=== PATIENT | male | born 1960 | race African-American/Black ===

== ENCOUNTER 2021-03-15 00:26 | Inpatient (IN) | payer MEDICARE, SELFPAY ==
[2021-03-15] VITALS (21 sets, daily range): BP systolic 129–147; BP diastolic 67–76; PULSE 69–98; RESP 14–28; TEMP 36.3–37.2; O2SAT 95–99; BMI 26.3; BMI 25.9
--- NOTE | 2021-03-15 00:31 | EKG12_ITS ---
Test Reason : SOB Blood Pressure : / mmHG Vent. Rate : 094 BPM Atrial Rate : 094 BPM P-R Int : 190 ms QRS Dur : 142 ms QT Int : 402 ms P-R-T Axes : 055 -51 054 degrees QTc Int : 502 ms Normal sinus rhythm Right bundle branch block Left anterior fascicular block Bifascicular block Possible Left ventricular hypertrophy Abnormal ECG Confirmed by RANDA MARTÍNEZ, HEATHER ([id number]), city editor HEATHER CALVILLO ([id number]) on 03/16/2021 10:40:50 AM Referred By: MARICRUZ Confirmed By:HEATHER TOLENTINO MD
--- NOTE | 2021-03-15 01:00 | RAD_ITS ---
STUDY: X-RAY CHEST REASON FOR EXAM: Male, 61 years old. Dyspnea on exertion TECHNIQUE: 2 views COMPARISON: None. FINDINGS: Please see the impression. RAD/Chest PA and Lateral IMPRESSION: Small right-sided pleural effusion. Also, fluid along the right lung minor fissure. Right basilar patchy opacities, likely atelectasis. Aspiration or pneumonia not excluded. Clear left lung. Unremarkable cardiac silhouette. No pneumothorax. Multilevel thoracic spondylosis. Electronically Signed: Javy Mckinney MD at 1:39 EDT Tel , Service support ,
--- NOTE | 2021-03-15 01:18 | EX.ED.DYSGE1 ---
HPI History of Present Illness Chief Complaint: Shortness of Breath Informant: patient Onset/Context/Timing Onset: Weeks Context: Gradual Onset Timing: Continuous Quality: Shortness of breath Location: Respiratory Current Severity: Mild Maximum Severity: Severe Worsened by: Activity and exertion Relieved by: Nothing Associated Symptoms Associated Symptoms: Fatigue, edema of lower extremities, history of iron deficiency anemia Narrative Narrative: Patient is a 61-year-old male who does not appear well. He appears dyspneic. He appears pale. He complains of shortness of breath. [place] cough. He does report a 20 pound weight loss over the last 2 years which is unintentional. He has not seen a doctor in several years. Does have swelling of his legs. Swelling improves after night's sleep. The left leg is always slightly larger than the right. He denies black or maroon-colored stool. He denies hematuria. He denies history of congestive heart failure. He denies orthopnea or PND. He does report dyspnea on exertion. Less activity to bring on the exertion recently. Prior similar symptoms: Yes Recent Illness/Hospitalization: No PFSH PFSH Allergy/AdvReac Type Severity Reaction Status Date / Time No Known Allergies Allergy Verified 02/23/17 11:54 Social History (Updated 03/15/21 @ 01:[address] Randal Merino MD) household members: none Smoking Status: Current some day smoker tobacco type: cigarettes alcohol intake: current alcohol intake frequency: other substance use type: does not use ROS ROS ED Constitutional Constitutional ED: Reports weight loss; Denies chills, fever(s), subjective or sweats Eyes Eyes: Denies blurry vision, change in vision or diplopia ENT ENT ED: Denies ear pain, rhinorrhea or sore throat Cardiovascular Cardiovascular: Denies chest pain, orthopnea, palpitations or paroxysmal nocturnal dyspnea Respiratory/Chest Respiratory/Chest: Reports dyspnea and dyspnea on exertion; Denies cough, orthopnea, paroxysmal nocturnal dyspnea or sputum Gastrointestinal Gastrointestinal: Denies abdominal pain, diarrhea, melena, nausea or vomiting Genitourinary Genitourinary ED: Denies dysuria, hematuria or urinary frequency Musculoskeletal Musculoskeletal: Denies arthralgias, back pain, myalgias or neck pain Integumentary Denies rash Neurologic Neurologic: Reports weakness; Denies headache(s) or paresthesias Endocrine Endocrinology: Denies polydipsia, polyphagia or polyuria Allergic/Immunologic Allergic/Immunologic ED: Denies urticaria EXAM Physical Exam Const Vital Signs: 03/15/21 00:27 03/15/21 00:30 03/15/21 00:36 Temperature 98.7 F Temperature Source Temporal Pulse Rate 98 69 Respiratory Rate 17 18 Respiratory Effort Normal Non-Labored Respiratory Depth Normal Blood Pressure 147/74 H 147/74 H Blood Pressure Mean 98 98 Pulse Ox 98 98 Oxygen Delivery Method Room Air Room Air Room Air Positive well nourished and well developed General Appearance ED: well developed HEENT HEENT Narrative: Head is atraumatic normocephalic. Ears normal. Nares patent. Posterior pharynx without erythema or exudate. Eyes PERRL and EOMs intact bilaterally General Eye ED: Yes pale conjunctiva; Negative for scleral icterus Neck no lymphadenopathy, supple and no JVD Resp normal respiratory effort and clear to auscultation bilaterally Cardio regular rate, regular rhythm, S1 normal heart sound, S2 normal heart sound and no murmurs GI normal to inspection, nondistended, normoactive bowel sounds, non-tender and non-distended Palpation: soft Back/Spine no CVA tenderness Cervical Spine: Negative for cervical spine tenderness Thoracic Spine / Upper Back: Negative for thoracic spinal tenderness or paraspinal muscle tenderness Extremity normal to inspection General Extremety ED: Yes edema; Negative for tenderness General Extremity: edema Neuro oriented x3 and CN's II-XII intact bilaterally Sensorium / Orientation: alert Motor Exam: strength 5/5 throughout Psych mental status grossly normal Skin no rashes or lesions noted and no wounds MDM MDM MDM Narrative Medical decision making narrative: Clinically patient is anemic with hemoglobin greater than 6 but less than 10. This may be due to his blood disorder that he does not know the name of. Also with history of iron deficiency anemia and not taking his iron he may have iron deficiency anemia. Appropriate blood work was obtained to assess H&H since anemia is a cause of dyspnea. EKG to rule out acute cardiac ischemia. Chest x-ray to rule out pulmonary etiology. Tirelessly julianna who is on-call for [place] [facility] was paged. She was informed the patient. She will notify rubbish collector of consult. Lab Data Attestation: I reviewed the patient's lab results. Labs: Laboratory Results - last 24 hr 03/15/21 03/15/21 03/15/21 00:45 00:45 00:45 WBC Cancelled Corrected WBC Cancelled RBC Cancelled Hgb Cancelled Hct Cancelled MCV Cancelled MCH Cancelled MCHC Cancelled RDW Std Deviation Cancelled RDW Coeff of Alisa Cancelled Plt Count Cancelled MPV Cancelled Immature Gran % (Auto) Cancelled Neut % (Auto) Cancelled Lymph % (Auto) Cancelled [place] % (Auto) Cancelled Eos % (Auto) Cancelled Baso % (Auto) Cancelled Absolute Neuts (auto) Cancelled Absolute Lymphs (auto) Cancelled Total Counted Cancelled Neutrophils % (Manual) Cancelled Band Neutrophils % Cancelled Lymphocytes % (Manual) Cancelled Monocytes % (Manual) Cancelled Eosinophils % (Manual) Cancelled Basophils % (Manual) Cancelled Metamyelocytes % Cancelled Myelocytes % Cancelled Promyelocytes % Cancelled Blast Cells % Cancelled Plasma Cell % (Manual) Cancelled Other Cells % Cancelled Nucleated RBC % Cancelled Nucleated RBCs/100 WBC Cancelled Differential Comment Cancelled Diff Path Review Cancelled Hypersegmented Neuts Cancelled Atypical Lymphocytes Cancelled Reactive Lymphocytes Cancelled Smudge Cells Cancelled Toxic Granulation Cancelled Toxic Vacuolation Cancelled Dohle Bodies Cancelled Porfirio Rods Cancelled Platelet Estimate Cancelled Plt Morphology Comment Cancelled RBC Morphology Cancelled Polychromasia Cancelled Hypochromasia Cancelled Poikilocytosis Cancelled Basophilic Stippling Cancelled Anisocytosis Cancelled Microcytosis Cancelled Macrocytosis Cancelled Spherocytes Cancelled Sickle Cells Cancelled Target Cells Cancelled Tear Drop Cells Cancelled Ovalocytes Cancelled Stomatocytes Cancelled [place] Bodies Cancelled Kevin Cells Cancelled Bite Cells Cancelled Crenated Cell Cancelled Acanthocytes (Spur) Cancelled Rouleaux Cancelled Schistocytes Cancelled Sodium Cancelled Potassium Cancelled Chloride Cancelled Carbon Dioxide Cancelled Anion Gap Cancelled BUN Cancelled Creatinine Cancelled Estim Creat Clear Calc Cancelled Est GFR (MDRD) Af Amer Cancelled Est GFR (MDRD) Non-Af Cancelled BUN/Creatinine Ratio Cancelled Glucose Cancelled Calcium Cancelled Total Bilirubin Cancelled AST Cancelled ALT Cancelled Alkaline Phosphatase Cancelled Total Protein Cancelled Albumin Cancelled Globulin Cancelled Albumin/Globulin Ratio Cancelled Blood Type Cancelled Antibody Screen Cancelled Crossmatch 03/15/21 03/15/21 03/15/21 01:25 01:25 01:25 WBC 225.2 H* Corrected WBC RBC 1.32 L Hgb 3.6 L* Hct 17.4 L MCV 131.8 H MCH 27.3 MCHC 20.7 L RDW Std Deviation 105.1 H RDW Coeff of Alisa 23.5 H Plt Count 162 MPV 8.8 Immature Gran % (Auto) 0.200 Neut % (Auto) 2.7 L Lymph % (Auto) 91.3 H [place] % (Auto) 5.6 Eos % (Auto) 0.1 Baso % (Auto) 0.1 Absolute Neuts (auto) 6.3 Absolute Lymphs (auto) 205.55 H Total Counted Neutrophils % (Manual) Band Neutrophils % Lymphocytes % (Manual) Monocytes % (Manual) Eosinophils % (Manual) Basophils % (Manual) Metamyelocytes % Myelocytes % Promyelocytes % Blast Cells % Plasma Cell % (Manual) Other Cells % Nucleated RBC % 0.8 Nucleated RBCs/100 WBC Differential Comment SCANNED Diff Path Review May foll Hypersegmented Neuts Atypical Lymphocytes Reactive Lymphocytes Smudge Cells Toxic Granulation Toxic Vacuolation Dohle Bodies Porfirio Rods Platelet Estimate ADEQUATE Plt Morphology Comment RBC Morphology Polychromasia RARE Hypochromasia 1+ Poikilocytosis Basophilic Stippling Anisocytosis 2+ Microcytosis RARE Macrocytosis 2+ Spherocytes Sickle Cells Target Cells Tear Drop Cells Ovalocytes Stomatocytes [place] Bodies Vanderbilt Cells Bite Cells Crenated Cell Acanthocytes (Spur) Rouleaux Schistocytes Sodium 143 Potassium 3.9 Chloride 110 H Carbon Dioxide 24.0 Anion Gap 9 BUN 10 Creatinine 0.75 Estim Creat Clear Calc 123.77 Est GFR (MDRD) Af Amer 135 Est GFR (MDRD) Non-Af 112 BUN/Creatinine Ratio 13.4 Glucose 97 Calcium 8.4 L Total Bilirubin 2.00 H AST 15 ALT 10 L Alkaline Phosphatase 99 Total Protein 6.0 L Albumin 2.6 L Globulin 3.4 Albumin/Globulin Ratio 0.8 L Blood Type Cancelled Antibody Screen Cancelled Crossmatch 03/15/21 Unknown WBC Corrected WBC RBC Hgb Hct MCV MCH MCHC RDW Std Deviation RDW Coeff of Alisa Plt Count MPV Immature Gran % (Auto) Neut % (Auto) Lymph % (Auto) [place] % (Auto) Eos % (Auto) Baso % (Auto) Absolute Neuts (auto) Absolute Lymphs (auto) Total Counted Neutrophils % (Manual) Band Neutrophils % Lymphocytes % (Manual) Monocytes % (Manual) Eosinophils % (Manual) Basophils % (Manual) Metamyelocytes % Myelocytes % Promyelocytes % Blast Cells % Plasma Cell % (Manual) Other Cells % Nucleated RBC % Nucleated RBCs/100 WBC Differential Comment Diff Path Review Hypersegmented Neuts Atypical Lymphocytes Reactive Lymphocytes Smudge Cells Toxic Granulation Toxic Vacuolation Dohle Bodies Porfirio Rods Platelet Estimate Plt Morphology Comment RBC Morphology Polychromasia Hypochromasia Poikilocytosis Basophilic Stippling Anisocytosis Microcytosis Macrocytosis Spherocytes Sickle Cells Target Cells Tear Drop Cells Ovalocytes Stomatocytes [place] Bodies Vanderbilt Cells Bite Cells Crenated Cell Acanthocytes (Spur) Rouleaux Schistocytes Sodium Potassium Chloride Carbon Dioxide Anion Gap BUN Creatinine Estim Creat Clear Calc Est GFR (MDRD) Af Amer Est GFR (MDRD) Non-Af BUN/Creatinine Ratio Glucose Calcium Total Bilirubin AST ALT Alkaline Phosphatase Total Protein Albumin Globulin Albumin/Globulin Ratio Blood Type Antibody Screen Crossmatch See Detail Radiography Diagnostic Testing: Radiology Impression Chest X-Ray 03/15/21 01:00 IMPRESSION: Small right-sided pleural effusion. Also, fluid along the right lung minor fissure. Right basilar patchy opacities, likely atelectasis. Aspiration or pneumonia not excluded. Clear left lung. Unremarkable cardiac silhouette. No pneumothorax. Multilevel thoracic spondylosis. Electronically Signed: Javy Mckinney MD at 1:39 EDT Tel , Service support , Discharge Plan Dx/Rx/DC Orders Clinical Impression: Signs and symptoms of anemia, Chronic lymphocytic leukemia, Anemia, macrocytic Disposition Disposition: Acute Care Hospital [facility]
[2021-03-15 01:42] LABS: Absolute Lymphocyte Count 205.55 X10^3/uL (0.83-4.51); Absolute Neutrophil Count 6.3 X10^3/uL (2.0-7.7); Basophil# 0.18 X10^3/uL; Basophil% 0.1 % (0-1); Eosinophil# 0.13 X10^3/uL; Eosinophils% 0.1 % (0-5); Hematocrit 17.4 % (40-54); Lymphocyte # 205.55 X10^3/ul (0.83-4.51); Lymphocyte % 91.3 % (19-41); Mean Corp Hgb Conc 20.7 g/dL (32-36); Mean Corpuscular Hgb 27.3 pg (27.0-32.0); Mean Corpuscular Volume 131.8 fL (80-94); Mean Platelet Vol. 8.8 fl (6.2-12.0); Monocyte# 12.53 X10^3/uL; Monocyte% 5.6 % (0-10); NRBC Flagged by Analyzer 0.8 % (0-5); Neutrophil # 6.32 X10^3/uL (2.7-7.7); Neutrophil % 2.7 % (47-70); POSITIVE COUNT YES; POSITIVE DIFFERENTIAL YES; POSITIVE MORPHOLOGY YES; Platelet Count 162 K/mm3 (150-450); RBC Distribution Width CV 23.5 % (11.6-14.6); RBC Distribution Width SD 105.1 fl (35.1-43.9); Red Blood Count 1.32 M/mm3 (4.6-6.2)
[2021-03-15 01:44] LABS: Differential Indicated SCAN CRITERIA MET; Hemoglobin 3.6 g/dL (13.0-16.5); White Blood Count 225.2 K/mm3 (4.4-11.0)
[2021-03-15 02:00] LABS: ALB/GLOB Ratio 0.8 RATIO (0.9-2.4); AST(SGOT) 15 U/L (15-37); Alanine Aminotransfer ALT/SGPT 10 U/L (16-61); Albumin, Serum 2.6 g/dL (3.2-5.0); Alkaline Phosphatase 99 U/L (45-117); Anion Gap 9 (5-15); BUN 10 mg/dL (7-18); BUN/Creat Ratio 13.4 RATIO (10-20); Calcium,Total 8.4 mg/dL (8.5-10.1); Chloride 110 mmol/L (98-107); Creatinine, Serum 0.75 mg/dL (0.70-1.30); EST Glomerular Filtration Rate 112 mL/min (>60); Est Glom Filt Rate - Afr Amer 135 mL/min (>60); Estimated Creatinine Clearance 123.77 ml/min; Globulin 3.4 g/dL (2.2-4.2); Glucose 97 mg/dL (74-106); Potassium 3.9 mmol/L (3.5-5.1); Sodium Level 143 mmol/L (136-145)
[2021-03-15 02:09] LABS: Anisocytosis 2+; Differential Comment SCANNED; Macrocytosis 2+; Microcytosis RARE; Platelet Estimate ADEQUATE (ADEQ); Polychromasia RARE
[2021-03-15 02:10] LABS: Hypochromasia 1+
--- NOTE | 2021-03-15 02:55 | HP.PCM.HOS_ITS ---
HPI - General General Date of Admission: 03/15/21 HPI Narrative MARYCRUZ VARGAS, is a 61 M with a significant history of CLL who presents to the emergency department with 2-week history of progressively worsening shortness of breath. Associated with his symptoms is bilateral leg swelling. He attributes his bilateral leg swelling to his CLL. [facility] [place] Medical History Chronic lymphocytic leukemia Allergy/AdvReac Type Severity Reaction Status Date / Time No Known Allergies Allergy Verified 02/23/17 11:54 Family History (Updated 03/15/21 @ 03:[address] Tra Garcia MD) Other Diabetes Hypertension Surgical History H/O foot surgery History of tonsillectomy Social History household members: none Smoking Status: Current some day smoker tobacco type: cigarettes alcohol intake: current alcohol intake frequency: other substance use type: does not use ROS ROS Narrative Constitutional: Denies anorexia and change in weight Eyes: Denies blurry vision, change in eye color, change in vision, discharge from eye(s), double vision, erythema, eye pain, loss of vision or other HEENT: Denies abnormal hearing, dysphagia, ear pain, epistaxis, headache(s), hearing loss, nasal congestion, nasal discharge, post nasal drip, sinus pressure, sore throat or other Cardiovascular: Denies chest pain or palpitations. Respiratory/Chest: Reports shortness of breath. Denies cough. Gastrointestinal: Denies abdominal pain, coffee ground emesis, constipation, diarrhea, dyspepsia, hematemesis, hematochezia, loose stools, melena, nausea, vomiting or other Genitourinary: Denies burning urination, difficulty urinating, dysuria, hematuria, nocturia, urinary frequency, urinary hesitancy, urinary incontinence, urinary urgency or other Musculoskeletal: Reports leg swelling. Denies arthralgias, back pain, joint pain, joint stiffness, myalgias, neck pain or other Neurologic: Denies abnormal gait, abnormal speech, confusion, disequilibrium, dizziness, focal weakness, headache(s), numbness, paresthesias, seizure-like activity, seizures, syncope, tingling, tremor(s) or other Psychiatric: Denies anxiety, depression, homicidal ideation, suicidal ideation or other Endocrinology: Denies change in body appearance, cold intolerance, excessive sweating, heat intolerance, polydipsia, polyuria or other Hematologic/Lymphatic: Reports anemia. Denies easy bleeding, easy bruising, or other Integumentary: Denies rashes Allergic/Immunologic: Denies rhinitis, hives, eczema, asthma or other Vital Signs Vital Signs Vital Signs: 03/15/21 00:27 03/15/21 00:30 03/15/21 00:36 Temperature 98.7 F Temperature Source Temporal Pulse Rate 98 69 Respiratory Rate 17 18 Respiratory Effort Normal Non-Labored Respiratory Depth Normal Blood Pressure 147/74 H 147/74 H Blood Pressure Mean 98 98 Pulse Ox 98 98 Oxygen Delivery Method Room Air Room Air Room Air Weight Weight: 98.2 kg Body Mass Index (BMI) 26.3 Physical Exam Narrative Physical exam: General: Well-nourished, well-developed. Head: Normocephalic, atraumatic, no tenderness Eyes: PERRLA, EOMI ENT, no trauma, moist mucous membranes, no rhinorrhea Neck: Nontender, full range of motion, no spinal tenderness, deformities, step- off CVS: Regular rate and rhythm. S1-S2 present. No murmur, gallop or rub. Respiratory : clear to auscultation bilaterally, chest wall nontender, no wheezing Abdomen: Soft, nontender, nondistended, normal bowel sounds, no masses : Deferred Back: Nontender, no CVA tenderness, no midline spinal tenderness, deformities, step-offs Extremities: Bilateral leg edema. Nontender full range of motion, no trauma Skin: Normal color, no trauma, abrasions Neuro: Alert, oriented, cranial nerves II through XII grossly intact. Psychiatry: Normal mood. Normal affect. Not depressed. Not anxious. Results Lab / Micro Data Result Diagrams: 03/15/21 01:25 03/15/21 01:25 Labs: Laboratory Results - last 24 hr 03/15/21 00:45: WBC Cancelled, Corrected WBC Cancelled, RBC Cancelled, Hgb Cancelled, Hct Cancelled, MCV Cancelled, MCH Cancelled, MCHC Cancelled, RDW Std Deviation Cancelled, RDW Coeff of Alisa Cancelled, Plt Count Cancelled, MPV Cancelled, Immature Gran % (Auto) Cancelled, Neut % (Auto) Cancelled, Lymph % (Auto) Cancelled, [place] % (Auto) Cancelled, Eos % (Auto) Cancelled, Baso % (Auto) Cancelled, Absolute Neuts (auto) Cancelled, Absolute Lymphs (auto) Cancelled, Total Counted Cancelled, Neutrophils % (Manual) Cancelled, Band Neutrophils % Cancelled, Lymphocytes % (Manual) Cancelled, Monocytes % (Manual) Cancelled, Eo sinophils % (Manual) Cancelled, Basophils % (Manual) Cancelled, Metamyelocytes % Cancelled, Myelocytes % Cancelled, Promyelocytes % Cancelled, Blast Cells % Cancelled, Plasma Cell % (Manual) Cancelled, Other Cells % Cancelled, Nucleated RBC % Cancelled, Nucleated RBCs/100 WBC Cancelled, Differential Comment Cancelled, Diff Path Review Cancelled, Hypersegmented Neuts Cancelled, Atypical Lymphocytes Cancelled, Reactive Lymphocytes Cancelled, Smudge Cells Cancelled, Toxic Granulation Cancelled, Toxic Vacuolation Cancelled, Dohle Bodies Cancelled, Porfirio Rods Cancelled, Platelet Estimate Cancelled, Plt Morphology Comment Cancelled, RBC Morphology Cancelled, Polychromasia Cancelled, Hypochromasia Cancelled, Poikilocytosis Cancelled, Basophilic Stippling Cancelled, Anisocytosis Cancelled, Microcytosis Cancelled, Macrocytosis Cancelled, Spherocytes Cancelled, Sickle Cells Cancelled, Target Cells Cancelled, Tear Drop Cells Cancelled, Ovalocytes Cancelled, Stomatocytes Cancelled, Lynn-Petrey Bodies Cancelled, [place] Cells Cancelled, Bite Cells Cancelled, Crenated Cell Cancelled, Acanthocytes (Spur) Cancelled, Rouleaux Cancelled, Schistocytes Cancelled 03/15/21 00:45: Sodium Cancelled, Potassium Cancelled, Chloride Cancelled, Carbon Dioxide Cancelled, Anion Gap Cancelled, BUN Cancelled, Creatinine Cancelled, Estim Creat Clear Calc Cancelled, Est GFR (MDRD) Af Amer Cancelled, Est GFR (MDRD) Non-Af Cancelled, BUN/Creatinine Ratio Cancelled, Glucose Cancelled, Calcium Cancelled, Total Bilirubin Cancelled, AST Cancelled, ALT Cancelled, Alkaline Phosphatase Cancelled, Total Protein Cancelled, Albumin Cancelled, Globulin Cancelled, Albumin/Globulin Ratio Cancelled 03/15/21 00:45: Blood Type Cancelled, Antibody Screen Cancelled 03/15/21 01:25: WBC 225.2 H*, RBC 1.32 L, Hgb 3.6 L*, Hct 17.4 L, MCV 131.8 H, MCH 27.3, MCHC 20.7 L, RDW Std Deviation 105.1 H, RDW Coeff of Alisa 23.5 H, Plt Count 162, MPV 8.8, Immature Gran % (Auto) 0.200, Neut % (Auto) 2.7 L, Lymph % (Auto) 91.3 H, [place] % (Auto) 5.6, Eos % (Auto) 0.1, Baso % (Auto) 0.1, Absolute Neuts (auto) 6.3, Absolute Lymphs (auto) 205.55 H, Nucleated RBC % 0.8, Differential Comment SCANNED, Diff Path Review May foll, Platelet Estimate ADEQUATE, Polychromasia RARE, Hypochromasia 1+, Anisocytosis 2+, Microcytosis RARE, Macrocytosis 2+ 03/15/21 01:25: Sodium 143, Potassium 3.9, Chloride 110 H, Carbon Dioxide 24.0, Anion Gap 9, BUN 10, Creatinine 0.75, Estim Creat Clear Calc 123.77, Est GFR (MDRD) Af Amer 135, Est GFR (MDRD) Non-Af 112, BUN/Creatinine Ratio 13.4, Glucose 97, Calcium 8.4 L, Total Bilirubin 2.00 H, AST 15, ALT 10 L, Alkaline Phosphatase 99, Total Protein 6.0 L, Albumin 2.6 L, Globulin 3.4, Albumin/Globulin Ratio 0.8 L 03/15/21 01:25: Blood Type Cancelled, Antibody Screen Cancelled 03/15/21 : Crossmatch See Detail Radiology Impression Chest X-Ray 03/15/21 01:00 IMPRESSION: Small right-sided pleural effusion. Also, fluid along the right lung minor fissure. Right basilar patchy opacities, likely atelectasis. Aspiration or pneumonia not excluded. Clear left lung. Unremarkable cardiac silhouette. No pneumothorax. Multilevel thoracic spondylosis. Electronically Signed: Javy Mckinney MD at 1:39 EDT Tel , Service support , Assessment & Plan Assessment/Plan (1) Signs and symptoms of anemia: (2) Chronic lymphocytic leukemia: PLAN: Symptomatic anemia Review emergent department labs showed hemoglobin of 3.6 and white count of 225.2. 4 units of blood was ordered emergency department. After 4 units of blood has been transfused repeat CBC. Emergency department doctor discussed the case with hematology. Inpatient hematology consult placed. Chest x-ray interpreted by radiologist and myself showed opacities/atelectasis; no fever or chills. Unlikely pneumonia. Trend CBC Bilateral leg swelling Jobst stocking continued DVT prophylaxis: SCD ordered Charges/Coding Visit Charges Inpatient E&M: 03768 Init Hosp L3
[2021-03-15 03:04] LABS: Vitamin B12 456 pg/mL (211-911)
--- NOTE | 2021-03-15 08:21 | NURSING ---
Pt placed on 2L via NC due to feeling SOB. Hgb 3.6.
--- NOTE | 2021-03-15 09:10 | PN.HOSP_ITS ---
Objective Data Objective Data Vital Signs: Vital Signs Temp Pulse Resp BP Pulse Ox 98.4 F 88 24 H 135/75 H 99 03/15/21 09:03 03/15/21 09:03 03/15/21 09:03 03/15/21 09:03 03/15/21 09:03 Oxygen Flow Rate (L/min) 2 Oxygen Delivery Method Room Air Weight: 96.6 kg Body Mass Index (BMI) 25.9 Lab / Micro Data Result Diagrams: 03/15/21 01:25 03/15/21 01:25 Labs: Laboratory Results - last 24 hr 03/15/21 00:45: WBC Cancelled, Corrected WBC Cancelled, RBC Cancelled, Hgb Cancelled, Hct Cancelled, MCV Cancelled, MCH Cancelled, MCHC Cancelled, RDW Std Deviation Cancelled, RDW Coeff of Alisa Cancelled, Plt Count Cancelled, MPV Cancelled, Immature Gran % (Auto) Cancelled, Neut % (Auto) Cancelled, Lymph % (Auto) Cancelled, [place] % (Auto) Cancelled, Eos % (Auto) Cancelled, Baso % (Auto) Cancelled, Absolute Neuts (auto) Cancelled, Absolute Lymphs (auto) Cancelled, Total Counted Cancelled, Neutrophils % (Manual) Cancelled, Band Neutrophils % Cancelled, Lymphocytes % (Manual) Cancelled, Monocytes % (Manual) Cancelled, Eosinophils % (Manual) Cancelled, Basophils % (Manual) Cancelled, Metamyelocytes % Cancelled, Myelocytes % Cancelled, Promyelocytes % Cancelled, Blast Cells % Cancelled, Plasma Cell % (Manual) Cancelled, Other Cells % Cancelled, Nucleated RBC % Cancelled, Nucleated RBCs/100 WBC Cancelled, Differential Comment Cancelled, Diff Path Review Cancelled, Hypersegmented Neuts Cancelled, Atypical Lymphocytes Cancelled, Reactive Lymphocytes Cancelled, Smudge Cells Cancelled, Toxic Granulation Cancelled, Toxic Vacuolation Cancelled, Dohle Bodies Cancelled, Porfirio Rods Cancelled, Platelet Estimate Cancelled, Plt Morphology Comment Cancelled, RBC Morphology Cancelled, Polychromasia Cancelled, Hypochromasia Cancelled, Poikilocytosis Cancelled, Basophilic Stippling Cancelled, Anisocytosis Cancelled, Microcytosis Cancelled, Macrocytosis Cancelled, Spherocytes Cancelled, Sickle Cells Cancelled, Target Cells Cancelled, Tear Drop Cells Cancelled, Ovalocytes Cancelled, Stomatocytes Cancelled, [place] Bodies Cancelled, Kevin Cells Cancelled, Bite Cells C ancelled, Crenated Cell Cancelled, Acanthocytes (Spur) Cancelled, Rouleaux Cancelled, Schistocytes Cancelled 03/15/21 00:45: Sodium Cancelled, Potassium Cancelled, Chloride Cancelled, Carbon Dioxide Cancelled, Anion Gap Cancelled, BUN Cancelled, Creatinine Cancelled, Estim Creat Clear Calc Cancelled, Est GFR (MDRD) Af Amer Cancelled, Est GFR (MDRD) Non-Af Cancelled, BUN/Creatinine Ratio Cancelled, Glucose Cancelled, Calcium Cancelled, Total Bilirubin Cancelled, AST Cancelled, ALT Cancelled, Alkaline Phosphatase Cancelled, Total Protein Cancelled, Albumin Cancelled, Globulin Cancelled, Albumin/Globulin Ratio Cancelled 03/15/21 00:45: Blood Type Cancelled, Antibody Screen Cancelled 03/15/21 01:25: WBC 225.2 H*, RBC 1.32 L, Hgb 3.6 L*, Hct 17.4 L, MCV 131.8 H, MCH 27.3, MCHC 20.7 L, RDW Std Deviation 105.1 H, RDW Coeff of Alisa 23.5 H, Plt Count 162, MPV 8.8, Immature Gran % (Auto) 0.200, Neut % (Auto) 2.7 L, Lymph % (Auto) 91.3 H, [place] % (Auto) 5.6, Eos % (Auto) 0.1, Baso % (Auto) 0.1, Absolute Neuts (auto) 6.3, Absolute Lymphs (auto) 205.55 H, Nucleated RBC % 0.8, Differential Comment SCANNED, Diff Path Review May foll, Platelet Estimate ADEQUATE, Polychromasia RARE, Hypochromasia 1+, Anisocytosis 2+, Microcytosis RARE, Macrocytosis 2+ 03/15/21 01:25: Sodium 143, Potassium 3.9, Chloride 110 H, Carbon Dioxide 24.0, Anion Gap 9, BUN 10, Creatinine 0.75, Estim Creat Clear Calc 123.77, Est GFR (MDRD) Af Amer 135, Est GFR (MDRD) Non-Af 112, BUN/Creatinine Ratio 13.4, Glucose 97, Calcium 8.4 L, Total Bilirubin 2.00 H, AST 15, ALT 10 L, Alkaline P hosphatase 99, Total Protein 6.0 L, Albumin 2.6 L, Globulin 3.4, Albumin/Globulin Ratio 0.8 L 03/15/21 01:25: Blood Type Cancelled, Antibody Screen Cancelled 03/15/21 01:37: Folate 5.90 03/15/21 01:45: Direct Antiglob Test POSITIVE H 03/15/21 02:40: Vitamin B12 456 03/15/21 : Crossmatch See Detail 03/15/21 : Blood Type A POSITIVE, Antibody Screen POSITIVE H 03/15/21 : Blood Type A POSITIVE Micro: Microbiology 03/15/21 02:55 Nasal Secretion SARS-CoV-2 Antigen (Rapid) - Final Radiography Diagnostic Testing: Radiology Impression Chest X-Ray 03/15/21 01:00 IMPRESSION: Small right-sided pleural effusion. Also, fluid along the right lung minor fissure. Right basilar patchy opacities, likely atelectasis. Aspiration or pneumonia not excluded. Clear left lung. Unremarkable cardiac silhouette. No pneumothorax. Multilevel thoracic spondylosis. Electronically Signed: Javy Mckinney MD at 1:39 EDT Tel , Service support ,
[2021-03-15 09:39] LABS: Iron 54 ug/dL (65-175); Iron Binding Capacity,Total 485 ug/dL (250-450); PERCENT IRON SATURATION 11.1 % (15.0-55.0)
--- NOTE | 2021-03-15 10:45 | CASEMGMT ---
RN KAREL Face to Face with patient for initial transition planning/care coordination assessment. RN CM introduced self and role at [facility]. Patient lying in bed, alert and oriented. Patient willing to participate in assessment and is able to answer all questions appropriately. Care providers, pharmacy, and demographics verified. Patient wishes to discharge home, denies need for home health at this time. Patient states he has no further needs or concerns at this time. CM to follow for discharge planning needs that may arise. PCP: Jaswant Specialists: none Preferred Pharmacy: [facility] Insurance: [facility] Prescription Benefit: yes Living Will/HPOA: none LNOK: Brother Living Arrangements: Patient lives alone in a 2 story home. Patient states he is independent at home and able to ambulate stairs. Transportation: self/brother DME/HHC: Patient denies current DME or previous HHC. Disposition Plan: Patient to discharge home with family support and follow-up plans in place. Caroline MURDOCK, RN, CM
[2021-03-15 11:11] LABS: Bilirubin, Direct 0.42 mg/dL (0.00-0.30); Ferritin 34 ng/mL (26-388); LDH 285 U/L (87-241)
[2021-03-15 11:11] LABS: Platelet Count 185 K/mm3 (150-450); RET-HE 28.9 pg (30-35); Reticulocyte Count 28.43 % (0.5-1.5)
[2021-03-15 13:12] LABS: Pathologist Review Reviewed
--- NOTE | 2021-03-15 13:25 | CON.PCM.ON_ITS ---
Assessment & Plan Assessment/Plan (1) Anemia, macrocytic: Status: Acute Code(s): D53.9 - Nutritional anemia, unspecified Plan: As evidenced by hemoglobin 3.6 on admission. direct raad IgG 2+ positive. I personally reviewed peripheral slides with pathologist, who estimate 5-10% spherocytes. 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 Additional labs ordered including d bili, haptoglobin, retic count and iron studies. Patient is stable. Given he was able to engage in interview without conversation dyspnea or tachycardia and he is not endorsing CP at this time, it is very likely he has been this severely anemia for an extended period of time. Advise 2 units PRBCs transfused slowly over 4 hours today, transfuse 2 units PRBCs slowly over 4 hours tomorrow, repeat CBC/LDH daily. Target Hgb 7 g/dl. Begin prednisone 100 mg tomorrow with folic acid 1 gm and prophylactic PPI daily. I explained to the patient he will need to be on high dose steroids for duration of 2-3 weeks. (2) Lymphocytosis: Status: Acute Code(s): D72.820 - Lymphocytosis (symptomatic) Plan: WBC 225.2, abs lymph 205.55 suggestive of CLL. ANC and platelets preserved, however presents with edema of BLE, splenomegaly and subjectively reports unintentional weight loss which would be indications for the treatment of CLL rather than observance. Obtain hepatitis panel to prepare for possible treatment in the future with rituximab. Orders entered for flow cytometry, FISH on peripheral blood and LDH. Advise supporting him through anemia crisis and obtain further staging and CLL management in the ambulatory setting. (3) Bilateral lower extremity edema: Status: Acute Code(s): R60.0 - Localized edema Plan: High risk for DVT. Orders entered for venous doppler bilat lower extremities. Case reviewed and discussed with Dr. Mccabe who is in agreement with the aforementioned plan. Will continue to follow. HPI Consult Data Date of Service:: 03/15/21 PCP / Referring Provider: Dr. Marlon Michaud MD Attending: Dr. Snow Brandt MD Chief Complaint Chief Complaint: Anemia, Lymphocytosis History of Present Illness History of Present Illness: Mr. 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 Found to have WBC count of 225.2, abs lymp 205.55 suggestive of CLL, Hgb 3.6 but preserved platelets and ANC. He was subsequently admitted for management of acute severe anemia. Upon entering the room, patient is sitting upright in bed. States he became dyspnea with exertion only 4 days ago, fatigue and SOB progressively worsened. Does not endorse any CP, palpations at this time. Early satiety and BLE are chronic concerns but increased within the last 6 months. Experiencing abd bloating and fullness. Endorses 20 lb unintentional weight loss in the last 18 months. No night sweats, dysphagia, enlarged lymph nodes. Reports he was told he has a problem with my red blood cells and white blood cells by a provider at [facility] [place], describes hospital admissions at [facility] in 2017 and 2018 where he received PRBC transfusions and later required Venofer in the out patient setting. Since, he has not followed with hem/onc. Continues to smoke 3-4 cigarettes per day. Describes ETOH use as rare. Advanced Directives Power of Blasting Entry Specialist: No [facility] Will[facility] History (Updated 03/15/21 @ 14:58 by Sada Jones NP, [employer]) Bilateral lower extremity edema Chronic lymphocytic leukemia Lymphocytosis Home Medications NK 03/15/21 [History Last Taken Unknown] Allergy/AdvReac Type Severity Reaction Status Date / Time No Known Allergies Allergy Verified 02/23/17 11:54 Family History (Updated 03/15/21 @ 03:[address] Tra Garcia MD) Other Diabetes Hypertension Surgical History H/O foot surgery History of tonsillectomy Social History (Updated 03/15/21 @ 13:58 by Sada Jones NP, [employer]) household members: none Smoking Status: Light Smoker (<10/day) alcohol intake: current alcohol intake frequency: holidays/special occasions only substance use type: does not use ROS Constitutional Constitutional: Reports fatigue and weight loss; Denies chills, fever(s) or night sweats ENT HEENT: Denies dysphagia Cardiovascular Cardiovascular: Reports clubbing, dyspnea at rest and edema; Denies chest pain, diaphoresis, irregular heart rhythm, palpitations or tachypnea Respiratory/Chest Respiratory/Chest: Denies cough, hemoptysis, pain on inspiration or wheezing Gastrointestinal Gastrointestinal: Reports bloating and early satiety; Denies constipation, diarrhea, dyspepsia, dysphagia, hematochezia, melena, nausea or vomiting Genitourinary Genitourinary: Denies flank pain or hematuria Musculoskeletal Musculoskeletal: Denies abnormal gait, back pain or extremity pain Integumentary Integumentary: Denies jaundice or unusual bruising Neurologic Neurologic: Denies confusion, dizziness, focal weakness, headache(s), numbness or tingling Hematologic/Lymphatic Hematologic/Lymphatic: Denies lymphadenopathy Physical Exam Const alert, oriented x3 and no apparent distress General Appearance: cooperative and comfortable HEENT normocephalic Head and Scalp: atraumatic Eyes conjunctivae normal and no scleral icterus Lymph Lymphatic: no lymphadenopathy noted Lymphatic Narrative: Difficult to discern inguinal nodes and as lying supine increased dyspnea Resp normal respiratory effort and clear to auscultation bilaterally Effort and Inspection: able to speak in complete sentences Cardio regular rate, regular rhythm, S1 normal heart sound, S2 normal heart sound and no murmurs GI GI Narrative: normoactive bowel sounds Palpation: firm and splenomegaly Difficult to discern splenic sizse as lying supine increased dyspnea Extremity General Extremity: edema bilateral lower extremity Details: moderate Skin no rashes or lesions noted General Skin Exam: Negative for petechiae Neuro CN's II-XII intact bilaterally and moves all extremities Psych cooperative, affect normal and speech normal Vital Signs Temperature 99.0 F 03/15/21 12:24 Temperature Source Oral 03/15/21 12:24 Pulse Rate 87 03/15/21 12:24 Respiratory Rate 28 H 03/15/21 12:24 Respiratory Effort Non-Labored 03/15/21 06:17 Respiratory Depth Normal 03/15/21 06:17 Respiratory Pattern Normal 03/15/21 06:17 Blood Pressure 132/70 H 03/15/21 12:24 Blood Pressure Mean 90 03/15/21 12:24 Blood Pressure Source Monitor 03/15/21 12:24 Blood Pressure Position Semi-Fowlers 03/15/21 12:24 Blood Pressure Location Right Arm 03/15/21 12:24 Pulse Ox 96 03/15/21 12:24 Oxygen Delivery Method Room Air 03/15/21 12:24 Oxygen Flow Rate (L/min) 2 03/15/21 08:19 Laboratory Results - last 24 hr 03/15/21 00:45: WBC Cancelled, Corrected WBC Cancelled, RBC Cancelled, Hgb Cancelled, Hct Cancelled, MCV Cancelled, MCH Cancelled, MCHC Cancelled, RDW Std Deviation Cancelled, RDW Coeff of Alisa Cancelled, Plt Count Cancelled, MPV Cancelled, Immature Gran % (Auto) Cancelled, Neut % (Auto) Cancelled, Lymph % (Auto) Cancelled, [place] % (Auto) Cancelled, Eos % (Auto) Cancelled, Baso % (Auto) Cancelled, Absolute Neuts (auto) Cancelled, Absolute Lymphs (auto) Cancelled, Total Counted Cancelled, Neutrophils % (Manual) Cancelled, Band Neutrophils % Cancelled, Lymphocytes % (Manual) Cancelled, Monocytes % (Manual) Cancelled, Eosinophils % (Manual) Cancelled, Basophils % (Manual) Cancelled, Metamyelocytes % Cancelled, Myelocytes % Cancelled, Promyelocytes % Cancelled, Blast Cells % Cancelled, Plasma Cell % (Manual) Cancelled, Other Cells % Cancelled, Nucleated RBC % Cancelled, Nucleated RBCs/100 WBC Cancelled, Differential Comment Cancelled, Diff Path Review Cancelled, Hypersegmented Neuts Cancelled, Atypical Lymphocytes Cancelled, Reactive Lymphocytes Cancelled, Smudge Cells Cancelled, Toxic Granulation Cancelled, Toxic Vacuolation Cancelled, Dohle Bodies Cancelled, Porfirio Rods Cancelled, Platelet Estimate Cancelled, Plt Morphology Comment Cancelled, RBC Morphology Cancelled, Polychromasia Cancelled, Hypochromasia Cancelled, Poikilocytosis Cancelled, Basophilic Stippling Cancelled, Anisocytosis Cancelled, Microcytosis Cancelled, Macrocytosis Cancelled, Spherocytes Cancelled, Sickle Cells Cancelled, Target Cells Cancelled, Tear Drop Cells Cancelled, Ovalocytes Cancelled, Stomatocytes Cancelled, [place] Bodies Cancelled, Kevin Cells Cancelled, Bite Cells Cancelled, Crenated Cell Cancelled, Acanthocytes (Spur) Cancelled, Rouleaux Cancelled, Schistocytes Cancelled 03/15/21 00:45: Sodium Cancelled, Potassium Cancelled, Chloride Cancelled, Carbon Dioxide Cancelled, Anion Gap Cancelled, BUN Cancelled, Creatinine Cancelled, Estim Creat Clear Calc Cancelled, Est GFR (MDRD) Af Amer Cancelled, Est GFR (MDRD) Non-Af Cancelled, BUN/Creatinine Ratio Cancelled, Glucose Cancelled, Calcium Cancelled, Total Bilirubin Cancelled, AST Cancelled, ALT Cancelled, Alkaline Phosphatase Cancelled, Total Protein Cancelled, Albumin Cancelled, Globulin Cancelled, Albumin/Globulin Ratio Cancelled 03/15/21 00:45: Blood Type Cancelled, Antibody Screen Cancelled 03/15/21 01:25: WBC 225.2 H*, RBC 1.32 L, Hgb 3.6 L*, Hct 17.4 L, MCV 131.8 H, MCH 27.3, MCHC 20.7 L, RDW Std Deviation 105.1 H, RDW Coeff of Alisa 23.5 H, Plt Count 162, MPV 8.8, Immature Gran % (Auto) 0.200, Neut % (Auto) 2.7 L, Lymph % (Auto) 91.3 H, [place] % (Auto) 5.6, Eos % (Auto) 0.1, Baso % (Auto) 0.1, Absolute Neuts (auto) 6.3, Absolute Lymphs (auto) 205.55 H, Nucleated RBC % 0.8, Differential Comment SCANNED, Diff Path Review Reviewed, Platelet Estimate ADEQUATE, Polychromasia RARE, Hypochromasia 1+, Anisocytosis 2+, Microcytosis RARE, Macrocytosis 2+ 03/15/21 01:25: Sodium 143, Potassium 3.9, Chloride 110 H, Carbon Dioxide 24.0, Anion Gap 9, BUN 10, Creatinine 0.75, Estim Creat Clear Calc 123.77, Est GFR (MDRD) Af Amer 135, Est GFR (MDRD) Non-Af 112, BUN/Creatinine Ratio 13.4, Glucose 97, Calcium 8.4 L, Total Bilirubin 2.00 H, AST 15, ALT 10 L, Alkaline Phosphatase 99, Total Protein 6.0 L, Albumin 2.6 L, Globulin 3.4, Albumin/Globulin Ratio 0.8 L 03/15/21 01:25: Blood Type Cancelled, Antibody Screen Cancelled 03/15/21 01:25: Retic Count 28.43 H, Immature Retic Fraction 43.90 H, Retic Hgb Equivalent 28.9 L 03/15/21 01:37: Folate 5.90 03/15/21 01:37: Iron 54 L, TIBC 485 H, Iron Saturation 11.1 L 03/15/21 01:37: Ferritin 34, Direct Bilirubin 0.42 H, Lactate Dehydrogenase 285 H 03/15/21 01:45: Direct Antiglob Test POS w/COMPLEMENT H 03/15/21 02:40: Vitamin B12 456 03/15/21 : Crossmatch See Detail 03/15/21 : Blood Type A POSITIVE, Antibody Screen POSITIVE H 03/15/21 : Blood Type A POSITIVE Microbiology 03/15/21 09:25 Nasal Secretion SARS-CoV-2 Antigen (Rapid) - Final 03/15/21 02:55 Nasal Secretion SARS-CoV-2 Antigen (Rapid) - Final Diagnostic Data Chest X-Ray 03/15/21 01:00 IMPRESSION: Small right-sided pleural effusion. Also, fluid along the right lung minor fissure. Right basilar patchy opacities, likely atelectasis. Aspiration or pneumonia not excluded. Clear left lung. Unremarkable cardiac silhouette. No pneumothorax. Multilevel thoracic spondylosis. Electronically Signed: Javy Mckineny MD at 1:39 EDT Tel , Service support ,
--- NOTE | 2021-03-15 13:36 | PN.HOSP_ITS ---
Documented by User: Tracy West NP, [employer] 03/15/21 13:53 Subjective Subjective Patient seen and examined. Reports shortness of breath. Denies chest pain, lightheadedness. Denies other symptoms or complaints. Patient is a poor historian regarding his history of anemia. Objective Data Objective Data Vital Signs: Vital Signs Temp Pulse Resp BP Pulse Ox 99.0 F 87 28 H 132/70 H 96 03/15/21 12:24 03/15/21 12:24 03/15/21 12:24 03/15/21 12:24 03/15/21 12:24 Oxygen Flow Rate (L/min) 2 Oxygen Delivery Method Room Air Weight: 212 lb 15.465 oz Body Mass Index (BMI) 25.9 Intake & Output: Intake and Output for Last 24 Hours 03/13/21 03/14/21 03/15/21 23:59 23:59 23:59 Intake Total 350 / 350 Balance 350 / 350 Lab / Micro Data Result Diagrams: 03/15/21 18:19 03/15/21 01:25 Labs: Laboratory Results - last 24 hr 03/15/21 00:45: WBC Cancelled, Corrected WBC Cancelled, RBC Cancelled, Hgb Cancelled, Hct Cancelled, MCV Cancelled, MCH Cancelled, MCHC Cancelled, RDW Std Deviation Cancelled, RDW Coeff of Alisa Cancelled, Plt Count Cancelled, MPV Cancelled, Immature Gran % (Auto) Cancelled, Neut % (Auto) Cancelled, Lymph % (Auto) Cancelled, [place] % (Auto) Cancelled, Eos % (Auto) Cancelled, Baso % (Auto) Cancelled, Absolute Neuts (auto) Cancelled, Absolute Lymphs (auto) Cancelled, Total Counted Cancelled, Neutrophils % (Manual) Cancelled, Band Neutrophils % Cancelled, Lymphocytes % (Manual) Cancelled, Monocytes % (Manual) Cancelled, Eosinophils % (Manual) Cancelled, Basophils % (Manual) Cancelled, Metamyelocytes % Cancelled, Myelocytes % Cancelled, Promyelocytes % Cancelled, Blast Cells % Cancelled, Plasma Cell % (Manual) Cancelled, Other Cells % Cancelled, Nucleated RBC % Cancelled, Nucleated RBCs/100 WBC Cancelled, Differential Comment Cancelled, Diff Path Review Cancelled, Hypersegmented Neuts Cancelled, Atypical Lymphocytes Cancelled, Reactive Lymphocytes Cancelled, Smudge Cells Cancelled, Toxic Granulation Cancelled, Toxic Vacuolation Cancelled, Dohle Bodies Cancelled, Porfirio Rods Cancelled, Platelet Estimate Cancelled, Plt Morphology Comment Cancelled, RBC Morphology Cancelled, Polychromasia Cancelled, Hypochromasia Cancelled, Poikilocytosis Cancelled, Basophilic Stippling Cancelled, Anisocytosis Cancelled, Microcytosis Cancelled, Macrocytosis Cancelled, Spherocytes Cancelled, Sickle Cells Cancelled, Target Cells Cancelled, Tear Drop Cells Cancelled, Ovalocytes Cancelled, Stomatocytes Cancelled, [place] Bodies Cancelled, Kevin Cells Cancelled, Bite Cells Ca ncelled, Crenated Cell Cancelled, Acanthocytes (Spur) Cancelled, Rouleaux Cancelled, Schistocytes Cancelled 03/15/21 00:45: Sodium Cancelled, Potassium Cancelled, Chloride Cancelled, Carbon Dioxide Cancelled, Anion Gap Cancelled, BUN Cancelled, Creatinine Cancelled, Estim Creat Clear Calc Cancelled, Est GFR (MDRD) Af Amer Cancelled, Est GFR (MDRD) Non-Af Cancelled, BUN/Creatinine Ratio Cancelled, Glucose Cancelled, Calcium Cancelled, Total Bilirubin Cancelled, AST Cancelled, ALT Cancelled, Alkaline Phosphatase Cancelled, Total Protein Cancelled, Albumin Cancelled, Globulin Cancelled, Albumin/Globulin Ratio Cancelled 03/15/21 00:45: Blood Type Cancelled, Antibody Screen Cancelled 03/15/21 01:25: WBC 225.2 H*, RBC 1.32 L, Hgb 3.6 L*, Hct 17.4 L, MCV 131.8 H, MCH 27.3, MCHC 20.7 L, RDW Std Deviation 105.1 H, RDW Coeff of Alisa 23.5 H, Plt C ount 162, MPV 8.8, Immature Gran % (Auto) 0.200, Neut % (Auto) 2.7 L, Lymph % (Auto) 91.3 H, [place] % (Auto) 5.6, Eos % (Auto) 0.1, Baso % (Auto) 0.1, Absolute Neuts (auto) 6.3, Absolute Lymphs (auto) 205.55 H, Nucleated RBC % 0.8, D ifferential Comment SCANNED, Diff Path Review Reviewed, Platelet Estimate ADEQUATE, Polychromasia RARE, Hypochromasia 1+, Anisocytosis 2+, Microcytosis RARE, Macrocytosis 2+ 03/15/21 01:25: Sodium 143, Potassium 3.9, Chloride 110 H, Carbon Dioxide 24.0, Anion Gap 9, BUN 10, Creatinine 0.75, Estim Creat Clear Calc 123.77, Est GFR (MDRD) Af Amer 135, Est GFR (MDRD) Non-Af 112, BUN/Creatinine Ratio 13.4, Glucose 97, Calcium 8.4 L, Total Bilirubin 2.00 H, AST 15, ALT 10 L, Alkaline Ph osphatase 99, Total Protein 6.0 L, Albumin 2.6 L, Globulin 3.4, Albumin/Globulin Ratio 0.8 L 03/15/21 01:25: Blood Type Cancelled, Antibody Screen Cancelled 03/15/21 01:25: Retic Count 28.43 H, Immature Retic Fraction 43.90 H, Retic Hgb Equivalent 28.9 L 03/15/21 01:37: Folate 5.90 03/15/21 01:37: Iron 54 L, TIBC 485 H, Iron Saturation 11.1 L 03/15/21 01:37: Ferritin 34, Direct Bilirubin 0.42 H, Lactate Dehydrogenase 285 H 03/15/21 01:45: Direct Antiglob Test POS w/COMPLEMENT H 03/15/21 02:40: Vitamin B12 456 03/15/21 : Crossmatch See Detail 03/15/21 : Blood Type A POSITIVE, Antibody Screen POSITIVE H 03/15/21 : Blood Type A POSITIVE Micro: Microbiology 03/15/21 09:25 Nasal Secretion SARS-CoV-2 Antigen (Rapid) - Final 03/15/21 02:55 Nasal Secretion SARS-CoV-2 Antigen (Rapid) - Final Radiography Diagnostic Testing: Radiology Impression Chest X-Ray 03/15/21 01:00 IMPRESSION: Small right-sided pleural effusion. Also, fluid along the right lung minor fissure. Right basilar patchy opacities, likely atelectasis. Aspiration or pneumonia not excluded. Clear left lung. Unremarkable cardiac silhouette. No pneumothorax. Multilevel thoracic spondylosis. Electronically Signed: Javy Mckinney MD at 1:39 EDT Tel , Service support , Physical Exam Const alert, oriented x3 and no apparent distress Orientation / Consciousness: awake, oriented to person, oriented to place and oriented to time HEENT normocephalic and moist oral mucous membranes Eyes PERRL, EOMs intact bilaterally and conjunctivae normal Neck no lymphadenopathy Resp clear to auscultation bilaterally Effort and Inspection: tachypneic Auscultation: diminished lung sounds Cardio regular rate, regular rhythm and no murmurs Peripheral Pulses: pulses 2+ throughout GI normal to inspection, nondistended, normoactive bowel sounds, non-tender and non-distended Extremity normal to inspection General Extremity: edema bilateral lower extremity Details: moderate Skin no rashes or lesions noted Lesions: no lesions Rashes: no rashes Trauma: no lacerations or abrasions Neuro CN's II-XII intact bilaterally, no focal motor deficits, no sensory deficits noted and deep tendon reflexes 2+ bilaterally Psych mental status grossly normal and affect normal Assessment & Plan Assessment/Plan (1) Anemia, macrocytic: PLAN: 1. Acute severe symptomatic anemia-reviewed clinisync records, no documented prior history of CLL. Hematology consult placed. Possible autoimmune hemolytic anemia. 4 units PRBC ordered however due to antibodies/type and screen, blood unable to be obtained quickly. Attempted transfer to tertiary facilities at multiple facilities including [facility], [facility], without any acceptance at this time. Smaller tertiary facilities not excepting transfers from outside facilities. Serial H&H, give blood as soon as available. IV PPI. Initiated on prednisone. LDH 285. Bilirubin elevated. Elevated retic count. Mildly iron deficient however not significant. will consider excepting patient once blood has been administered as they feel his current hemoglobin/status is not stable for transfer. 2. Severe leukocytosis-WBC to 25. Possible CLL although as stated above, no known prior history. Hematology/oncology consult as noted above. 3. Bilateral lower extremity edema-IV Lasix x1. Bunny wraps bilateral lower extremities. DVT prophylaxis-SCDs This patient was seen by ISAIAH Paulino under the supervision of Dr. Brandt. Documented by User: Dr. Snow Brandt MD 03/15/21 20:28 Objective Data Lab / Micro Data Result Diagrams: 03/15/21 18:19 03/15/21 01:25 Charges/Coding Addendum Addendum: This patient was seen in conjunction with Tracy West. I have independently interviewed and examined the patient and reviewed pertinent historical, laboratory, and other data. I have reviewed her note and concur with her documentation Patient was seen and examined. He is a poor historian. He denied any history of CLL. Informed by blood bank that they are unable to transfuse him. Blood will have to be arranged from [facility] -expected time of arrival is 12 hours. Patient complains of shortness of breath with minimal exertion. He feels diaphoretic. He denied any chest pain or dizziness. Called several transfer alliance?[facility], [facility], [facility] -all refused to accept the patient Discussed in depth with hematology on-call -recommended current management including transfer to ICU for closer monitoring Physical Exam: Gen: Looks in some discomfort, very pale, not jaundiced CVS:HS I +II, regular, no murmurs RESP: Diminished at lung bases GI: BS present and normal, soft, nontender, no palpable organs EXT: Bilateral leg edema +4 ASSESSMENT: 1. Acute severe symptomatic anemia 2. Acute autoimmune hemolytic anemia 3. Elevated WBC count likely secondary to underlying CLL Plan: IV Solu-Medrol 125 mg x 1 Continue on oral prednisone 100 mg p.o. daily Transfused 2 units of blood today Repeat 2 units of blood tomorrow Check FOBT, iron stores Time spent coordinating with various transfer lines to tertiary centers, discussing with subspecialists, nursing, reviewing patient's record: 2 and half hours Visit Charges Inpatient E&M: 48609 Subs Hosp L3 Procedures Hospitalists Procedures: 75888 Prolonged Physician INPT
--- NOTE | 2021-03-15 13:54 | ECHOD_ITS ---
Reason For Study: BLE EDEMA Procedure This was a 2D Doppler, Color Flow transthoracic echocardiogram. The exam was of adequate technical quality. Exam performed portable in patient room. Left Ventricle Borderline dilated left ventricle. Apical false tendon noted. Left ventricular systolic function is normal. The estimated ejection fraction is 60 %. Diastolic function is indeterminate. No regional wall motion abnormalities noted. Right Ventricle Normal RV size. Normal systolic function. Atria The left atrium is mildly enlarged. Normal right atrium. No doppler evidence for ASD. Mitral Valve There is no mitral annular calcification. Normal mitral valve. Trivial mitral valve insufficiency. Tricuspid Valve Normal tricuspid valve. Trivial tricuspid valve insufficiency. Unable to estimate RV systolic pressure due to insufficient tricuspid regurgitant envelope. Aortic Valve Trisinus/trileaflet aortic valve. Mild diffuse aortic valve thickening. Mild focal aortic valve calcification. Pulmonic Valve The pulmonic valve is not well visualized. Great Vessels Normal sized aortic root. Pericardium/Pleural Trivial pericardial effusion. There are no echocardiographic indications of cardiac tamponade. MMode/2D Measurements & Calculations LVIDd: 5.7 cm IVSd: 1.1 cm Ao root diam: 3.1 cm LVIDs: 3.9 cm LVPWd: 1.2 cm RVDd: 3.9 cm FS: 31.3 % LAV(MOD-bp): 99.4 ml LA A4 area: 28.0 cm2 LA dimension(2D): 4.6 cm LAV(MOD-bp) Indexed: 43.8 ml/m2 LAV(MOD-sp2): 101.6 ml LAV(MOD-sp4): 92.1 ml RA A4 area: 22.0 cm2 Doppler Measurements & Calculations MV E max tej: 56.5 cm/sec Lat Peak E' Tej: 11.2 cm/sec Med Peak E' Tej: 11.7 cm/sec MV A max tej: 73.0 cm/sec E/E' lat: 5.0 E/E' med: 4.8 MV E/A: 0.77 Ao V2 max: 185.3 cm/sec LV V1 max: 143.7 cm/sec PA V2 max: 135.9 cm/sec Ao max P.7 mmHg LV V1 max P.3 mmHg Ao V2 mean: 105.7 cm/sec LV V1 mean P.5 mmHg Ao mean P.3 mmHg LV V1 mean: 87.6 cm/sec Ao V2 VTI: 28.8 cm LV V1 VTI: 24.4 cm ECHO/Echo Complete Interpretation Summary Borderline dilated left ventricle. Left ventricular systolic function is normal. The estimated ejection fraction is 60 %. Apical false tendon noted. The left atrium is mildly enlarged. Trivial mitral valve insufficiency. Trivial tricuspid valve insufficiency. Mild diffuse aortic valve thickening. Mild focal aortic valve calcification. Trivial pericardial effusion. There are no echocardiographic indications of cardiac tamponade. Unable to estimate RV systolic pressure due to insufficient tricuspid regurgita nt envelope. Diastolic function is indeterminate. Ordering Physician: Tracy West Referring Physician: Marlon Michaud Performed By: Cyndie Albert RDCS, RVT
[2021-03-15 14:34] LABS: Hematocrit 18.5 % (40-54); POSITIVE COUNT YES; POSITIVE MORPHOLOGY YES
--- NOTE | 2021-03-15 15:11 | VDLE_ITS ---
Reason For Study: SWELLING RIGHT LEFT GSV is normal. GSV is normal. FV is compressible, spontaneous, phasic, FV is compressible, spontaneous, phasic, competent and demonstrates normal competent and demonstrates normal augmentation. augmentation. POP V is compressible, spontaneous, phasic, POP V is compressible, spontaneous, phasic, competent and demonstrates normal competent and demonstrates normal augmentation. augmentation. T/P Trunk is compressible. T/P Trunk is compressible. PTV is compressible. PTV is compressible. RT PerV is compressible. LT PerV is compressible. There is a nonvascularized, hypoechoic structure noted in the Pop space extending to the proximal calf, measuring 2.23 x 2.2 cm. Procedure Exam performed portable in patient room. Bilateral CFV and SFJ not visualized. A preliminary report was called and/or faxed to [facility]. VL/Venous Duplex US - Frandy Extrem Interpretation Summary Deep veins of the lower extremities are bilaterally patent and compressible seg mentally. There is no evidence of deep vein thrombosis on either side. Valvular competence appears in tact within the proximal deep venous systems bilaterally. The great saphenous veins appear bila terally patent and compressible segmentally. The common femoral vein and sapheno-femoral junction were not visualized on either side. A non-vascular, hypoechoic structure is noted in the right popl iteal space and proximal calf, measuring 2.23 cm x 2.2 cm. This probably represents a popliteal cyst. Clinical correlation is advised. Ordering Physician: Sada Jones Referring Physician: LADONNA LOU Performed By: Birgit Tena, DEBORAHCS, RVT
--- NOTE | 2021-03-15 15:20 | EKG12_ITS ---
Test Reason : Blood Pressure : / mmHG Vent. Rate : 087 BPM Atrial Rate : 087 BPM P-R Int : 196 ms QRS Dur : 152 ms QT Int : 430 ms P-R-T Axes : 062 -44 034 degrees QTc Int : 517 ms Normal sinus rhythm Left axis deviation Right bundle branch block Abnormal ECG When compared with ECG of 26-FEB-2009 03:04, Right bundle branch block is now Present Confirmed by YANELY MARTÍNEZ, MADHU ([id number]), industrial editor HEATHER CALVILLO ([id number]) on 03/17/2021 2:12:42 PM Referred By: ANNALISE Confirmed By:MADHU [place] MD
--- NOTE | 2021-03-15 18:53 | EX.PCM.CONCC ---
Assessment & Plan Assessment/Plan (1) Chronic lymphocytic leukemia: (2) Bilateral lower extremity edema: (3) Hepatitis C: QUALIFIERS: Viral hepatitis chronicity: unspecified (4) Anemia, macrocytic: (5) Malnutrition: PLAN: RECOMMENDATIONS: 1. Agree with oncology recommendations 2. Transfusion when available 3. No need to transfer to the intensive care unit from my perspective 4. May need to monitor for tumor lysis syndrome IMPRESSIONS: 1. Macrocytic anemia secondary to active CLL Patient with significant elevation in lymphocytes. Oncology appears that this is appropriate to treat with Rituxan. Patient, despite extremely low hemoglobin, is tolerating this well and is normotensive. Orthostatic symptoms would be expected. Patient can have blood transfusions when they become available. Patient does have multiple antibodies. Patient could receive fluid boluses if necessary. Likely no reason to transfer to the intensive care unit at this time. We will continue to observe on the floor. Anticipate patient could have the majority of his work-up as an outpatient. Patient does have a bronze appearance, so evaluation for hemochromatosis would be recommended as suggested by oncology. 2. Active tobacco abuse/hepatitis C/poor primary care/poor insight Complicates care, management, recovery and prognosis. Patient could have a work-up as an outpatient to evaluate for COPD given long smoking history. Patient does have an unintentional weight loss, and should qualify for a low-dose CT scan. This would be completed as an outpatient. Anticipate an element of dyspnea on exertion is secondary to anemia alone. However, this would exacerbate any underlying obstructive lung disease. HPI Consult Data Date of Consult: 03/15/21 HPI Narrative HPI Narrative: MARYCRUZ VARGAS is a 61 M with past medical history listed below, who presents to [facility] 03/15/2021 secondary to generalized fatigue, dyspnea on exertion and a 20 pound unintentional weight loss. Patient reportedly had not seen a doctor in several years and reports that the [facility] told him there is nothing to do. Patient states that he has not had any black or maroon-colored stools. Patient does take p.o. iron at baseline, so my stools are always dark. Patient denies any history of hematuria, CHF orthopnea. Patient does have difficulty going from lying to standing, but feels this is improved if he takes this time. In the ER, patient was afebrile and normotensive. Patient was saturating well on room air. Laboratory work-up showed a white blood cell count of 225.2, hemoglobin of 3.6 and platelet count of 162. Patient was noted to have 91% lymphocytes. Chemistries were relatively unremarkable except for an elevated bilirubin of 2. Chest x-ray showed a small right pleural effusion with no pneumothorax. Since being admitted to the hospital, patient feels relatively unchanged. Patient has not been able to get blood transfusion secondary to multiple antibodies. Patient has remained hemodynamically stable. There was some question about whether the patient needed to be transferred to the intensive care unit, so pulmonary consult was obtained. Patient does have a long smoking history, but denies any history of being diagnosed with COPD. Patient denies any alcohol or drug use. Patient has used inhalers in the past associated with bronchitis. Patient does report that he has had some increased lower extremity swelling recently. Patient states that he has not followed up with any physicians because an oncologist at [facility] told me there was nothing he could do. Review of systems otherwise negative from a constitutional, HEENT, respiratory, cardiovascular, GI, genitourinary, musculoskeletal, skin, neurologic, psychiatric and hematologic system unless stated above. [facility] Medical History Bilateral lower extremity edema Chronic lymphocytic leukemia Lymphocytosis Home Medications NK 03/15/21 [History Last Taken Unknown] Allergy/AdvReac Type Severity Reaction Status Date / Time No Known Allergies Allergy Verified 02/23/17 11:54 Family History Other Diabetes Hypertension Surgical History H/O foot surgery History of tonsillectomy Social History household members: none Smoking Status: Light Smoker (<10/day) alcohol intake: current alcohol intake frequency: holidays/special occasions only substance use type: does not use ROS ROS Narrative See HPI Physical Exam Const alert, oriented x3 and no apparent distress Orientation / Consciousness: awake, oriented to person, oriented to place and oriented to time HEENT normocephalic and moist oral mucous membranes Eyes PERRL, EOMs intact bilaterally and conjunctivae normal Neck no lymphadenopathy Resp no use of accessory muscles and clear to auscultation bilaterally Effort and Inspection: symmetric chest movement Auscultation: diminished lung sounds; Negative for rales, rhonchi or wheezes Cardio regular rate, regular rhythm and no murmurs Peripheral Pulses: pulses 2+ throughout GI normal to inspection, nondistended, normoactive bowel sounds, non-tender and non-distended Extremity normal to inspection General Extremity: edema bilateral lower extremity (3+) Skin Skin Narrative: Darker complexion Lesions: no lesions Rashes: no rashes Trauma: no lacerations or abrasions Neuro CN's II-XII intact bilaterally, no focal motor deficits, no sensory deficits noted and deep tendon reflexes 2+ bilaterally Psych mental status grossly normal and affect normal Lab / Micro Data Result Diagrams: 03/15/21 18:19 03/15/21 01:25 Labs: Laboratory Results - last 24 hr 03/15/21 00:45: WBC Cancelled, Corrected WBC Cancelled, RBC Cancelled, Hgb Cancelled, Hct Cancelled, MCV Cancelled, MCH Cancelled, MCHC Cancelled, RDW Std Deviation Cancelled, RDW Coeff of Alisa Cancelled, Plt Count Cancelled, MPV Cancelled, Immature Gran % (Auto) Cancelled, Neut % (Auto) Cancelled, Lymph % (Auto) Cancelled, [place] % (Auto) Cancelled, Eos % (Auto) Cancelled, Baso % (Auto) Cancelled, Absolute Neuts (auto) Cancelled, Absolute Lymphs (auto) Cancelled, Total Counted Cancelled, Neutrophils % (Manual) Cancelled, Band Neutrophils % Cancelled, Lymphocytes % (Manual) Cancelled, Monocytes % (Manual) Cancelled, Eosinophils % (Manual) Cancelled, Basophils % (Manual) Cancelled, Metamyelocytes % Cancelled, Myelocytes % Cancelled, Promyelocytes % Cancelled, Blast Cells % Cancelled, Plasma Cell % (Manual) Cancelled, Other Cells % Cancelled, Nucleated RBC % Cancelled, Nucleated RBCs/100 WBC Cancelled, Differential Comment Cancelled, Diff Path Review Cancelled, Hypersegmented Neuts Cancelled, Atypical Lymphocytes Cancelled, Reactive Lymphocytes Cancelled, Smudge Cells Cancelled, Toxic Granulation Cancelled, Toxic Vacuolation Cancelled, Dohle Bodies Cancelled, Porfirio Rods Cancelled, Platelet Estimate Cancelled, Plt Morphology Comment Cancelled, RBC Morphology Cancelled, Polychromasia Cancelled, Hypochromasia Cancelled, Poikilocytosis Cancelled, Basophilic Stippling Cancelled, Anisocytosis Cancelled, Microcytosis Cancelled, Macrocytosis Cancelled, Spherocytes Cancelled, Sickle Cells Cancelled, Target Cells Cancelled, Tear Drop Cells Cancelled, Ovalocytes Cancelled, Stomatocytes Cancelled, [place] Bodies Cancelled, Kevin Cells Cancelled, Bite Cells Cancelled, Crenated Cell Cancelled, Acanthocytes (Spur) Cancelled, Rouleaux Cancelled, Schistocytes Cancelled 03/15/21 00:45: Sodium Cancelled, Potassium Cancelled, Chloride Cancelled, Carbon Dioxide Cancelled, Anion Gap Cancelled, BUN Cancelled, Creatinine Cancelled, Estim Creat Clear Calc Cancelled, Est GFR (MDRD) Af Amer Cancelled, Est GFR (MDRD) Non-Af Cancelled, BUN/Creatinine Ratio Cancelled, Glucose Cancelled, Calcium Cancelled, Total Bilirubin Cancelled, AST Cancelled, ALT Cancelled, Alkaline Phosphatase Cancelled, Total Protein Cancelled, Albumin Cancelled, Globulin Cancelled, Albumin/Globulin Ratio Cancelled 03/15/21 00:45: Blood Type Cancelled, Antibody Screen Cancelled 03/15/21 01:25: WBC 225.2 H*, RBC 1.32 L, Hgb 3.6 L*, Hct 17.4 L, MCV 131.8 H, MCH 27.3, MCHC 20.7 L, RDW Std Deviation 105.1 H, RDW Coeff of Alisa 23.5 H, Plt Count 162, MPV 8.8, Immature Gran % (Auto) 0.200, Neut % (Auto) 2.7 L, Lymph % (Auto) 91.3 H, [place] % (Auto) 5.6, Eos % (Auto) 0.1, Baso % (Auto) 0.1, Absolute Neuts (auto) 6.3, Absolute Lymphs (auto) 205.55 H, Nucleated RBC % 0.8, Differential Comment SCANNED, Diff Path Review Reviewed, Platelet Estimate ADEQUATE, Polychromasia RARE, Hypochromasia 1+, Anisocytosis 2+, Microcytosis RARE, Macrocytosis 2+ 03/15/21 01:25: Sodium 143, Potassium 3.9, Chloride 110 H, Carbon Dioxide 24.0, Anion Gap 9, BUN 10, Creatinine 0.75, Estim Creat Clear Calc 123.77, Est GFR (MDRD) Af Amer 135, Est GFR (MDRD) Non-Af 112, BUN/Creatinine Ratio 13.4, Glucose 97, Calcium 8.4 L, Total Bilirubin 2.00 H, AST 15, ALT 10 L, Alkaline Phosphatase 99, Total Protein 6.0 L, Albumin 2.6 L, Globulin 3.4, Albumin/Globulin Ratio 0.8 L 03/15/21 01:25: Blood Type Cancelled, Antibody Screen Cancelled 03/15/21 01:25: Retic Count 28.43 H, Immature Retic Fraction 43.90 H, Retic Hgb Equivalent 28.9 L 03/15/21 01:37: Folate 5.90 03/15/21 01:37: Iron 54 L, TIBC 485 H, Iron Saturation 11.1 L 03/15/21 01:37: Ferritin 34, Direct Bilirubin 0.42 H, Lactate Dehydrogenase 285 H 03/15/21 01:45: Direct Antiglob Test POS w/COMPLEMENT H 03/15/21 02:40: Vitamin B12 456 03/15/21 14:12: Hgb 3.7 L*, Hct 18.5 L 03/15/21 18:19: Hgb 8.5 L, Hct 36.2 L 03/15/21 : Crossmatch See Detail 03/15/21 : Blood Type A POSITIVE, Antibody Screen POSITIVE H, Antibody Identification WARM AUTOANTIBODY 03/15/21 : Blood Type A POSITIVE Micro: Microbiology 03/15/21 09:25 Nasal Secretion SARS-CoV-2 Antigen (Rapid) - Final 03/15/21 02:55 Nasal Secretion SARS-CoV-2 Antigen (Rapid) - Final Radiology Impression Chest X-Ray 03/15/21 01:00 IMPRESSION: Small right-sided pleural effusion. Also, fluid along the right lung minor fissure. Right basilar patchy opacities, likely atelectasis. Aspiration or pneumonia not excluded. Clear left lung. Unremarkable cardiac silhouette. No pneumothorax. Multilevel thoracic spondylosis. Electronically Signed: Javy Mckinney MD at 1:39 EDT Tel , Service support , Echocardiogram 03/15/21 13:54 Interpretation Summary Borderline dilated left ventricle. Left ventricular systolic function is normal. The estimated ejection fraction is 60 %. Apical false tendon noted. The left atrium is mildly enlarged. Trivial mitral valve insufficiency. Trivial tricuspid valve insufficiency. Mild diffuse aortic valve thickening. Mild focal aortic valve calcification. Trivial pericardial effusion. There are no echocardiographic indications of cardiac tamponade. Unable to estimate RV systolic pressure due to insufficient tricuspid regurgitant envelope. Diastolic function is indeterminate. Ordering Physician: Tracy West Referring Physician: Marlon Michaud Performed By: Cyndie Albert RDCS, RVT Charges/Coding Visit Charges Inpatient E&M: 89397 Init Hosp L2
[2021-03-15 18:54] LABS: Hemoglobin 3.8 g/dL (13.0-16.5)
--- NOTE | 2021-03-15 18:58 | NURSING ---
pandemic documentation started
[2021-03-15] MEDS: DiphenhydrAMINE 50 MG/ML Syringe IV (19:56)
[2021-03-15] MEDS: 0.9% Saline Lock 10 ML Syringe IV (19:56)
[2021-03-15] MEDS: Acetaminophen 500 MG Tablet 1000 MG PO (19:56)
[2021-03-16] VITALS (28 sets, daily range): BP systolic 124–155; BP diastolic 62–85; PULSE 76–104; RESP 14–25; TEMP 36.2–37.4; O2SAT 94–98
[2021-03-16] MEDS: predniSONE 20 MG Tablet 100 MG PO (07:55)
[2021-03-16] MEDS: Furosemide 40 MG/4 ML Vial IV ×2 (07:55→17:01)
[2021-03-16] MEDS: 0.9% Saline Lock 10 ML Syringe IV ×2 (07:55→17:02)
[2021-03-16] MEDS: Folic Acid 1 MG Tablet PO (07:58)
[2021-03-16 10:35] LABS: Haptoglobin 55 mg/dL (32-363)
--- NOTE | 2021-03-16 10:35 | WOUNDNOTE ---
Consulted on patient d/t history of hidradenitis. patient has not allowed nursing to remove his jeans for since admission which was 2 days ago. nursing unsure if patient has any wounds. in to attempt to assess. patient states the areas that drain the most are to the buttocks. patient wanting to wait until the blood transfusion is complete and then wants to shower. talked with BASHIR Kline to let this nurse know once patient showers and can attempt to assess buttocks. patient very private. pt denies further needs at this time.
--- NOTE | 2021-03-16 11:24 | PN.ONC_ITS ---
Subjective Subjective Upon entering the room, patient is sitting upright in bed eating his breakfast. Reports improvement of fatigue and dyspnea. He is eager to get a shower and be out of bed. Specifically denies chills, sweats, CP, palpitations, dysphagia, enlarged LN, abd pain and calf pain. BLE edema unchanged. Physical Exam Const alert, oriented x3 and no apparent distress General Appearance: cooperative and comfortable HEENT normocephalic Head and Scalp: atraumatic Eyes conjunctivae normal and no scleral icterus Lymph Lymphatic: no lymphadenopathy noted Resp normal respiratory effort and clear to auscultation bilaterally Effort and Inspection: able to speak in complete sentences Cardio regular rate, regular rhythm, S1 normal heart sound, S2 normal heart sound and no murmurs GI non-tender GI Narrative: normoactive bowel sounds Extremity General Extremity: edema bilateral lower extremity Skin General Skin Exam: Negative for petechiae Neuro CN's II-XII intact bilaterally and moves all extremities Psych cooperative, affect normal and speech normal Vital Signs Temperature 99.3 F H 03/16/21 09:55 Temperature Source Temporal 03/16/21 09:55 Pulse Rate 88 03/16/21 09:55 Respiratory Rate 23 H 03/16/21 09:55 Respiratory Effort Non-Labored 03/16/21 08:00 Respiratory Depth Normal 03/16/21 08:00 Respiratory Pattern Normal 03/16/21 08:00 Blood Pressure 138/77 H 03/16/21 09:55 Blood Pressure Mean 97 03/16/21 09:55 Blood Pressure Source Monitor 03/16/21 09:55 Blood Pressure Position Semi-Fowlers 03/16/21 09:55 Blood Pressure Location Right Arm 03/16/21 09:55 Pulse Ox 98 03/16/21 09:55 Oxygen Delivery Method Room Air 03/16/21 09:55 Oxygen Flow Rate (L/min) 2 03/15/21 08:19 Laboratory Results - last 24 hr 03/15/21 01:25: Diff Path Review Reviewed 03/15/21 02:40: Haptoglobin 55 03/15/21 14:12: Hgb 3.7 L*, Hct 18.5 L 03/15/21 18:19: Hgb 3.8 L*, Hct 19.0 L 03/15/21 : Crossmatch See Detail 03/15/21 : Antibody Identification WARM AUTOANTIBODY Microbiology 03/15/21 09:25 Nasal Secretion SARS-CoV-2 Antigen (Rapid) - Final Diagnostic Data Chest X-Ray 03/15/21 01:00 IMPRESSION: Small right-sided pleural effusion. Also, fluid along the right lung minor fissure. Right basilar patchy opacities, likely atelectasis. Aspiration or pneumonia not excluded. Clear left lung. Unremarkable cardiac silhouette. No pneumothorax. Multilevel thoracic spondylosis. Electronically Signed: Javy Mckinney MD at 1:39 EDT Tel , Service support , Echocardiogram 03/15/21 13:54 Interpretation Summary Borderline dilated left ventricle. Left ventricular systolic function is normal. The estimated ejection fraction is 60 %. Apical false tendon noted. The left atrium is mildly enlarged. Trivial mitral valve insufficiency. Trivial tricuspid valve insufficiency. Mild diffuse aortic valve thickening. Mild focal aortic valve calcification. Trivial pericardial effusion. There are no echocardiographic indications of cardiac tamponade. Unable to estimate RV systolic pressure due to insufficient tricuspid regurgitant envelope. Diastolic function is indeterminate. Ordering Physician: Tracy West Referring Physician: Ladonna Lou Performed By: Cyndie Albert, RDCS, RVT Venous Doppler Study 03/15/21 15:11 Interpretation Summary Deep veins of the lower extremities are bilaterally patent and compressible segmentally. There is no evidence of deep vein thrombosis on either side. Valvular competence appears intact within the proximal deep venous systems bilaterally. The great saphenous veins appear bilaterally patent and compressible segmentally. The common femoral vein and sapheno-femoral junction were not visualized on either side. A non-vascular, hypoechoic structure is noted in the right popliteal space and proximal calf, measuring 2.23 cm x 2.2 cm. This probably represents a popliteal cyst. Clinical correlation is advised. Ordering Physician: Sada Jones Referring Physician: LADONNA LOU Performed By: Birgit Tena, LION, RVT Assessment & Plan Assessment/Plan (1) Anemia, macrocytic: PLAN: Secondary to autoimmune hemolytic anemia, direct raad IgG 2+. 3 full units of PRBCs have been transfused, with 1 additional unit in process at the time of my encounter with the patient this morning. Overall, he has tolerated transfusions well. Await post transfusion H/H, consider type and hold to help expedite further transfusions this admission. Iron studies show he is deficient, although will not replenish as he has receive iron with transfusions. Occult blood stool not yet provided. Target Hgb 7 g/dl. Continue prednisone 100 mg with folic acid daily. Continue GI prophylaxis. Patient is aware he will need to be on high dose steroids for duration of 2-3 weeks, stressed the importance of adherence to steroid therapy upon discharge. CBC/CMP/retic count daily. (2) Lymphocytosis: PLAN: WBC and abs lymph count suggestive of CLL. Flow cytometry and FISH lymph panel are pending. LDH WNL, again ANC and platelets are preserved indicating anemia is not resulting from crowding of bone marrow. Will determine if there are indications for treatment in the out patient setting once flow/FISH are reported and severe anemia has improved. Repeat LDH daily. (3) Edema, lower extremity: PLAN: Venous dopper negative for DVT. Primary team managing diuretics. Case reviewed and discussed with Dr. Mccabe who is in agreement with the aforementioned plan. Will continue to follow.
--- NOTE | 2021-03-16 13:26 | WOUNDNOTE ---
Was asked to assess buttocks per nursing. patient has severe hidradenitis to buttocks/penny rectal area. Ileana CODING DIRECTOR in to assess with this nurse as well. patient states he has been to a specialist at [facility] numerous times for it and has had surgery twice. patient has a moderate amount of pink/vaughan malodorous drainage. bilateral buttocks very edematous and inflamed. patient not wanting this nurse to place any gauze between buttocks to absorb drainage. pt prefers to use a pad like he does at home. pad placed at this time with mesh panties.
[2021-03-16 13:40] LABS: Hemoglobin 3.7 g/dL (13.0-16.5)
--- NOTE | 2021-03-16 13:50 | PCM.PN.HOSP ---
Documented by User: Tracy West NP, EXTENSION SERVICE ADVISOR-C 03/16/21 14:01 Subjective Subjective Patient seen and examined. Feels improved symptomatically. Reports improvement in shortness of breath and fatigue. Received 4 units PRBC. Awaiting repeat CBC. Patient reports chronic significant hidradenitis in the buttock area. He states he has not followed up with us for several years and typically wears a pad during the day due to consistent drainage. Objective Data Objective Data Vital Signs: Vital Signs Temp Pulse Resp BP Pulse Ox 99.2 F H 89 22 H 148/81 H 95 03/16/21 10:55 03/16/21 11:26 03/16/21 10:55 03/16/21 10:55 03/16/21 10:55 Oxygen Flow Rate (L/min) 2 Oxygen Delivery Method Room Air Weight: 212 lb 15.465 oz Body Mass Index (BMI) 25.9 Intake & Output: Intake and Output for Last 24 Hours 03/14/21 03/15/21 03/16/21 23:59 23:59 23:59 Intake Total 860 / 1100 1790 / 1790 Output Total 125 / 125 1900 / 1900 Balance 735 / 975 -110 / -110 Lab / Micro Data Result Diagrams: 03/16/21 13:40 03/16/21 13:40 Labs: Laboratory Results - last 24 hr 03/15/21 02:40: Haptoglobin 55 03/15/21 14:12: Hgb 3.7 L*, Hct 18.5 L 03/15/21 18:19: Hgb 3.8 L*, Hct 19.0 L 03/15/21 : Crossmatch See Detail 03/15/21 : Antibody Identification WARM AUTOANTIBODY Micro: Microbiology 03/15/21 09:25 Nasal Secretion SARS-CoV-2 Antigen (Rapid) - Final 03/15/21 02:55 Nasal Secretion SARS-CoV-2 Antigen (Rapid) - Final Radiography Diagnostic Testing: Radiology Impression Echocardiogram 03/15/21 13:54 Interpretation Summary Borderline dilated left ventricle. Left ventricular systolic function is normal. The estimated ejection fraction is 60 %. Apical false tendon noted. The left atrium is mildly enlarged. Trivial mitral valve insufficiency. Trivial tricuspid valve insufficiency. Mild diffuse aortic valve thickening. Mild focal aortic valve calcification. Trivial pericardial effusion. There are no echocardiographic indications of cardiac tamponade. Unable to estimate RV systolic pressure due to insufficient tricuspid regurgitant envelope. Diastolic function is indeterminate. Ordering Physician: Tracy West Referring Physician: Ladonna Lou Performed By: Cyndie Albert RDCS, RVT Venous Doppler Study 03/15/21 15:11 Interpretation Summary Deep veins of the lower extremities are bilaterally patent and compressible segmentally. There is no evidence of deep vein thrombosis on either side. Valvular competence appears intact within the proximal deep venous systems bilaterally. The great saphenous veins appear bilaterally patent and compressible segmentally. The common femoral vein and sapheno-femoral junction were not visualized on either side. A non-vascular, hypoechoic structure is noted in the right popliteal space and proximal calf, measuring 2.23 cm x 2.2 cm. This probably represents a popliteal cyst. Clinical correlation is advised. Ordering Physician: Sada Jones Referring Physician: LADONNA LOU Performed By: Birgit Tena RDCS, RVT Physical Exam Const alert, oriented x3 and no apparent distress Orientation / Consciousness: awake, oriented to person, oriented to place and oriented to time HEENT normocephalic and moist oral mucous membranes Eyes PERRL, EOMs intact bilaterally and conjunctivae normal Neck no lymphadenopathy Resp normal respiratory effort and clear to auscultation bilaterally Cardio regular rate, regular rhythm and no murmurs Peripheral Pulses: pulses 2+ throughout GI normal to inspection, nondistended, normoactive bowel sounds, non-tender and non-distended Extremity normal to inspection Skin no rashes or lesions noted Skin Narrative: Severe buttock hidradenitis with purulent drainage Lesions: no lesions Rashes: no rashes Trauma: no lacerations or abrasions Neuro CN's II-XII intact bilaterally, no focal motor deficits, no sensory deficits noted and deep tendon reflexes 2+ bilaterally Psych mental status grossly normal and affect normal Assessment & Plan Assessment/Plan (1) Chronic lymphocytic leukemia: (2) Anemia, macrocytic: PLAN: 1. Acute severe symptomatic anemia secondary to autoimmune hemolytic anemia- Hematology consult placed. Status post 4 unit PRBC. Serial H&H. On prednisone 100 mg daily with folic acid. Continue PPI. Continue recommendations per hematology. Stool for occult blood pending. 2. Severe leukocytosis-probable CLL. Hematology/oncology consult as noted above. Flow cytometry and FISH lymph panel pending. Will follow with oncology as outpatient following medical stabilization. 3. Bilateral lower extremity edema-duplex ultrasound negative for DVT. Echocardiogram demonstrates an EF of 60%. Continue IV Lasix and Ubnny wraps. 4. Severe buttock hidradenitis-wound RN consult. Previously managed by a specialist at [facility]. Has not followed up with a significant mount of time. Will begin Flagyl and Augmentin. Keep area clean/dry. Recommend outpatient follow-up for surgical evaluation following treatment of above. DVT prophylaxis-SCDs This patient was seen by ISAIAH Paulino under the supervision of Dr. Brandt. Documented by User: Dr. Snow Brandt MD 03/16/21 15:56 Objective Data Lab / Micro Data Result Diagrams: 03/16/21 13:40 03/16/21 13:40 Charges/Coding Addendum Addendum: This patient was seen in conjunction with Tracy West. I have independently interviewed and examined the patient and reviewed pertinent historical, laboratory, and other data. I have reviewed her note and concur with her documentation Patient was seen and examined. He did well overnight. Received 3 units of blood transfusion at time of being seen. Denied any shortness of breath or dizziness. He has been voiding a lot. 2D echo shows EF of 60%. Physical Exam: Gen: Looks in some discomfort, very pale, not jaundiced CVS:HS I +II, regular, no murmurs RESP: Diminished at lung bases GI: BS present and normal, soft, nontender, no palpable organs EXT: Bilateral leg edema +4 ASSESSMENT: 1. Acute severe symptomatic anemia 2. Acute autoimmune hemolytic anemia, direct Denny IgG 3. Iron def anemia 3. Elevated WBC count(lymphocytosis) likely secondary to underlying CLL Plan: Continue on oral prednisone 100 mg p.o. daily Flow cytometry, FISH lymph panel Will repeat Hb Transfuse to keep Hb >7.0g.dl Visit Charges Inpatient E&M: 87855 Subs Hosp L3
[2021-03-16 13:54] LABS: Absolute Lymphocyte Count 233.82 X10^3/uL (0.83-4.51); Absolute Neutrophil Count 9.1 X10^3/uL (2.0-7.7); Basophil# 0.13 X10^3/uL; Basophil% 0.1 % (0-1); Eosinophil# 0.05 X10^3/uL; Hematocrit 27.5 % (40-54); Hemoglobin 6.9 g/dL (13.0-16.5); Lymphocyte # 233.82 X10^3/ul (0.83-4.51); Lymphocyte % 91.6 % (19-41); Mean Corp Hgb Conc 25.1 g/dL (32-36); Mean Corpuscular Hgb 28.2 pg (27.0-32.0); Mean Corpuscular Volume 112.2 fL (80-94); Monocyte# 11.24 X10^3/uL; Monocyte% 4.4 % (0-10); NRBC Flagged by Analyzer 0.7 % (0-5); Neutrophil # 9.05 X10^3/uL (2.7-7.7); Neutrophil % 3.6 % (47-70); POSITIVE COUNT YES; POSITIVE DIFFERENTIAL YES; POSITIVE MORPHOLOGY YES; Platelet Count 168 K/mm3 (150-450); RBC Distribution Width CV 28.9 % (11.6-14.6); Red Blood Count 2.45 M/mm3 (4.6-6.2)
[2021-03-16 13:55] LABS: RBC Distribution Width SD 103.9 fl (35.1-43.9)
[2021-03-16 13:56] LABS: Differential Indicated SCAN CRITERIA MET
[2021-03-16 13:57] LABS: White Blood Count 255.1 K/mm3 (4.4-11.0)
[2021-03-16 14:09] LABS: Anion Gap 9 (5-15); BUN 12 mg/dL (7-18); BUN/Creat Ratio 13.4 RATIO (10-20); Calcium,Total 8.1 mg/dL (8.5-10.1); Chloride 109 mmol/L (98-107); EST Glomerular Filtration Rate 91 mL/min (>60); Est Glom Filt Rate - Afr Amer 110 mL/min (>60); Estimated Creatinine Clearance 103.14 ml/min; Glucose 161 mg/dL (74-106); Potassium 4.3 mmol/L (3.5-5.1); Sodium Level 140 mmol/L (136-145)
[2021-03-16 14:43] LABS: Anisocytosis 1+
[2021-03-16] MEDS: Amox/Clavulanate 875 MG Tablet PO (17:01)
[2021-03-17] VITALS (11 sets, daily range): BP systolic 134–154; BP diastolic 55–88; PULSE 67–108; RESP 14–18; TEMP 36.5–37.1; O2SAT 96–97
[2021-03-17 06:10] LABS: Absolute Lymphocyte Count 229.41 X10^3/uL (0.83-4.51); Absolute Neutrophil Count 6.7 X10^3/uL (2.0-7.7); Basophil# 0.15 X10^3/uL; Basophil% 0.1 % (0-1); Eosinophil# 0.03 X10^3/uL; Hematocrit 29.3 % (40-54); Hemoglobin 7.1 g/dL (13.0-16.5); Lymphocyte # 229.41 X10^3/ul (0.83-4.51); Lymphocyte % 91.7 % (19-41); Mean Corp Hgb Conc 24.2 g/dL (32-36); Mean Corpuscular Hgb 27.7 pg (27.0-32.0); Mean Corpuscular Volume 114.5 fL (80-94); Monocyte# 13.29 X10^3/uL; Monocyte% 5.3 % (0-10); NRBC Flagged by Analyzer 0.6 % (0-5); Neutrophil # 6.69 X10^3/uL (2.7-7.7); Neutrophil % 2.7 % (47-70); POSITIVE COUNT YES; POSITIVE DIFFERENTIAL YES; POSITIVE MORPHOLOGY YES; Platelet Count 173 K/mm3 (150-450); RET-HE 28.8 pg (30-35); Red Blood Count 2.56 M/mm3 (4.6-6.2); Reticulocyte Count 15.05 % (0.5-1.5)
[2021-03-17 06:22] LABS: RBC Distribution Width SD 105.8 fl (35.1-43.9)
[2021-03-17 06:23] LABS: Differential Indicated SCAN CRITERIA MET; White Blood Count 250.2 K/mm3 (4.4-11.0)
[2021-03-17 06:53] LABS: Anisocytosis 2+; Differential Comment SCANNED; Macrocytosis 2+; Polychromasia 1+
[2021-03-17 07:05] LABS: ALB/GLOB Ratio 0.5 RATIO (0.9-2.4); AST(SGOT) 20 U/L (15-37); Alanine Aminotransfer ALT/SGPT 9 U/L (16-61); Alkaline Phosphatase 100 U/L (45-117); Anion Gap 9 (5-15); BUN 13 mg/dL (7-18); BUN/Creat Ratio 15.7 RATIO (10-20); Calcium,Total 6.4 mg/dL (8.5-10.1); Chloride 111 mmol/L (98-107); Creatinine, Serum 0.83 mg/dL (0.70-1.30); EST Glomerular Filtration Rate 100 mL/min (>60); Est Glom Filt Rate - Afr Amer 121 mL/min (>60); Estimated Creatinine Clearance 111.84 ml/min; Globulin 4.1 g/dL (2.2-4.2); Glucose 82 mg/dL (74-106); LDH 307 U/L (87-241); Potassium 5.1 mmol/L (3.5-5.1); Protein, Total 6.1 g/dL (6.4-8.2); Sodium Level 142 mmol/L (136-145)
[2021-03-17] MEDS: Folic Acid 1 MG Tablet PO (09:07)
[2021-03-17] MEDS: predniSONE 20 MG Tablet 100 MG PO (09:08)
[2021-03-17] MEDS: Amox/Clavulanate 875 MG Tablet PO ×2 (09:08→18:02)
[2021-03-17] MEDS: 0.9% Saline Lock 10 ML Syringe IV ×2 (09:12→21:53)
--- NOTE | 2021-03-17 10:30 | PCM.PROGNOTE ---
Documented by User: ISAIAH Trinidad 03/17/21 10:41 Subjective Subjective Patient seen and examined. Patient vocalizes concern regarding going home as patient is still experiencing intermittent shortness of breath. Extensive conversation with patient regarding diagnosis, treatment, ongoing symptoms. After discussion with Dr. Brandt patient will remain today. Patient denies other symptoms. Objective Data Objective Data Vital Signs: Vital Signs Temp Pulse Resp BP Pulse Ox 98.7 F 79 18 153/88 H 97 03/17/21 07:58 03/17/21 07:58 03/17/21 07:58 03/17/21 07:58 03/17/21 07:58 Oxygen Flow Rate (L/min) 2 Oxygen Delivery Method Room Air Weight: 212 lb 15.465 oz Body Mass Index (BMI) 25.9 Intake & Output: Intake and Output for Last 24 Hours 03/15/21 03/16/21 03/17/21 23:59 23:59 23:59 Intake Total 860 / 1100 2300 / 2300 Output Total 125 / 125 3100 / 3100 500 / 500 Balance 735 / 975 -800 / -800 -500 / -500 Lab / Micro Data Result Diagrams: 03/17/21 05:50 03/17/21 05:50 Labs: Laboratory Results - last 24 hr 03/15/21 01:45: Blood Type Cancelled, A1 Antigen Typing Cancelled, Rho(D) Type Cancelled, Antibody Screen Cancelled, Crossmatch See Detail 03/15/21 02:40: Haptoglobin 55 03/15/21 14:12: Hgb 3.7 L* 03/15/21 : Crossmatch See Detail 03/16/21 13:40: WBC 255.1 H*, RBC 2.45 L, Hgb 6.9 L, Hct 27.5 L, MCV 112.2 H D, MCH 28.2, MCHC 25.1 L D, RDW Std Deviation 103.9 H, RDW Coeff of Alisa 28.9 H, Plt Count 168, MPV 9.0, Immature Gran % (Auto) 0.300, Neut % (Auto) 3.6 L, Lymph % (Auto) 91.6 H, [place] % (Auto) 4.4, Eos % (Auto) 0.0, Baso % (Auto) 0.1, Absolute Neuts (auto) 9.1 H, Absolute Lymphs (auto) 233.82 H, Nucleated RBC % 0.7, Differential Comment COMMENT, Diff Path Review May sommer, Anisocytosis 1+ 03/16/21 13:40: Sodium 140, Potassium 4.3, Chloride 109 H, Carbon Dioxide 22.0, Anion Gap 9, BUN 12, Creatinine 0.90, Estim Creat Clear Calc 103.14, Est GFR (MDRD) Af Amer 110, Est GFR (MDRD) Non-Af 91, BUN/Creatinine Ratio 13.4, Glucose 161 H, Calcium 8.1 L 03/17/21 05:50: WBC 250.2 H*, RBC 2.56 L, Hgb 7.1 L, Hct 29.3 L, MCV 114.5 H, MCH 27.7, MCHC 24.2 L, RDW Std Deviation 105.8 H, RDW Coeff of Alisa 28.0 H, Plt Count 173, MPV 9.0, Immature Gran % (Auto) 0.200, Neut % (Auto) 2.7 L, Lymph % (Auto) 91.7 H, [place] % (Auto) 5.3, Eos % (Auto) 0.0, Baso % (Auto) 0.1, Absolute Neuts (auto) 6.7, Absolute Lymphs (auto) 229.41 H, Nucleated RBC % 0.6, Differential Comment SCANNED, Diff Path Review May sommer, Polychromasia 1+, Anisocytosis 2+, Macrocytosis 2+, Retic Count 15.05 H, Immature Retic Fraction 34.50 H, Retic Hgb Equivalent 28.8 L 03/17/21 05:50: Sodium 142, Potassium 5.1, Chloride 111 H, Carbon Dioxide 22.0, Anion Gap 9, BUN 13, Creatinine 0.83, Estim Creat Clear Calc 111.84, Est GFR (MDRD) Af Amer 121, Est GFR (MDRD) Non-Af 100, BUN/Creatinine Ratio 15.7, Glucose 82, Calcium 6.4 L*, Total Bilirubin 2.60 H, AST 20, ALT 9 L, Alkaline Phosphatase 100, Lactate Dehydrogenase 307 H, Total Protein 6.1 L, Albumin 2.0 L, Globulin 4.1, Albumin/Globulin Ratio 0.5 L Micro: Microbiology 03/16/21 13:11 Stool Stool Occult Blood (MERYL) - Final 03/15/21 09:25 Nasal Secretion SARS-CoV-2 Antigen (Rapid) - Final 03/15/21 02:55 Nasal Secretion SARS-CoV-2 Antigen (Rapid) - Final Physical Exam Const alert and oriented x3 General Appearance: cooperative HEENT normocephalic and head/scalp atraumatic Eyes conjunctivae normal and no scleral icterus Neck supple and no JVD General: trachea midline Resp normal respiratory effort, normal air movement and clear to auscultation bilaterally Cardio regular rate, regular rhythm, S1 normal heart sound and S2 normal heart sound GI normal to inspection, nondistended, normoactive bowel sounds, soft to palpation and non-tender Extremity normal capillary refill and no clubbing, cyanosis or edema General Extremity: no tenderness to palpation of joints or extremities Skin Skin Narrative: Severe buttock hidradenitis with purulent drainage General Skin Exam: turgor normal Lesions: no lesions Rashes: no rashes Neuro no focal motor deficits and no sensory deficits noted Speech: speech normal Motor Exam: general weakness Psych thought process normal Appearance: appropriate Mood & Affect: anxious Assessment & Plan Assessment/Plan (1) Chronic lymphocytic leukemia: (2) Anemia, macrocytic: PLAN: 1. Acute severe symptomatic anemia secondary to autoimmune hemolytic anemia -Hematology following -Status post 4 units packed red blood cells -Hemoglobin 7.1 from 6.9 yesterday -Continue prednisone, PPI transition to p.o. -Stool occult blood negative -Obtain CBC in a.m. 2. Severe leukocytosis, probable CLL -Hematology/oncology consulted as above -Flow cytometry and FISH lymph panel pending -Patient will follow with oncology as outpatient following medical stabilization 3. Bilateral lower extremity edema -Duplex ultrasound negative for DVT -Echo demonstrates EF 60% -Lasix increased from twice daily to every 8 hour -DEMOND hose ordered 4. Severe buttock hidradenitis -Wound nurse following -Continue Flagyl and Augmentin -Patient will need outpatient follow-up for surgical evaluation DVT prophylaxis-SCDs This patient was seen by ISAIAH Trinidad under the supervision of Dr. Brandt. Documented by User: Dr. Snow Brandt MD 03/17/21 12:37 Objective Data Lab / Micro Data Result Diagrams: 03/17/21 05:50 03/17/21 05:50 Charges/Coding Addendum Addendum: This patient was seen in conjunction with Ibis Calles. I have independently interviewed and examined the patient and reviewed pertinent historical, laboratory, and other data. I have reviewed her note and concur with her documentation Patient was seen and examined. He admits to feeling a little improved. He is however short of breath from walking from the bed to the bedside commode. He refused Lasix in the morning. I went over the whole plan of care with him. He agreed to Lasix. Physical Exam: Gen: Disheveled, pale, not jaundiced CVS:HS I +II, regular, no murmurs RESP: Diminished at lung bases GI: BS present and normal, soft, nontender, no palpable organs EXT: Bilateral leg edema +4 ASSESSMENT: 1. Acute severe symptomatic anemia 2. Acute autoimmune hemolytic anemia, direct Denny IgG 3. Iron def anemia 4. Elevated WBC count(lymphocytosis) likely secondary to underlying CLL 5. Severe hidradenitis suppurativa 6. Hypocalcemia Plan: Continue on oral prednisone 100 mg p.o. daily Flow cytometry, FISH lymph panel We will continue to monitor H&H Transfuse to keep Hb >7.0g.dl Continue on oral Augmentin Increase Lasix to 40 mg IV q. 8 Fluid restriction to less than 1500mls Visit Charges Inpatient E&M: 40296 Subs Hosp L3
--- NOTE | 2021-03-17 10:35 | WOUNDNOTE ---
Pt still being very private about his hidradenitis to buttocks/penny anal area. pt wants to continue to use pads for the drainage. does not want this nurse to place gauze between upper buttocks to absorb drainage. will monitor.
[2021-03-17] MEDS: Furosemide 40 MG/4 ML Vial IV ×3 (10:53→21:41)
[2021-03-17 12:48] LABS: Magnesium 1.8 mg/dL (1.6-2.6)
[2021-03-17 13:07] LABS: Pathologist Review Reviewed
--- NOTE | 2021-03-17 14:48 | CASEMGMT ---
Palliative screening tool completed at this time for Lace/Strata 3. Patient meets criteria for palliative consult. BASHIR VINSON updated hospitalist and order received for consult. BASHIR VINSON faxed referral to [facility].
[2021-03-17 16:09] LABS: HEPATITIS B SURFACE AG Negative (Negative); Hepatitis A AB, Total Negative (Negative); Hepatitis A IgM Antibody Negative (Negative); Hepatitis B Core AB IgM Negative (Negative); Hepatitis B Core Ab Total Negative (Negative); Hepatitis Be Ab Negative (Negative); Hepatitis Be Ag Negative (Negative)
--- NOTE | 2021-03-17 16:49 | PN.ONC_ITS ---
Subjective Subjective Upon entering the room, patient is sitting upright in bed watching TV. Reports improvement of fatigue and dyspnea. [place] steady on his feet to shower yesterday. Although he voices concern about going home to his residence as he would need to climb 2 flights of stairs- may stay with a relative. Specifically denies chills, sweats, CP, palpitations, dysphagia, enlarged LN, abd pain and calf pain. Physical Exam Const alert, oriented x3 and no apparent distress General Appearance: cooperative and comfortable HEENT normocephalic Head and Scalp: atraumatic Eyes conjunctivae normal and no scleral icterus Lymph Lymphatic: no lymphadenopathy noted Resp normal respiratory effort and clear to auscultation bilaterally Effort and Inspection: able to speak in complete sentences Cardio regular rate, regular rhythm, S1 normal heart sound, S2 normal heart sound and no murmurs GI non-tender GI Narrative: normoactive bowel sounds Palpation: splenomegaly Extremity General Extremity: edema bilateral lower extremity Skin General Skin Exam: Negative for petechiae Neuro CN's II-XII intact bilaterally and moves all extremities Psych cooperative, affect normal and speech normal Vital Signs Temperature 97.8 F 03/17/21 15:38 Temperature Source Oral 03/17/21 15:38 Pulse Rate 77 03/17/21 15:38 Respiratory Rate 14 03/17/21 15:38 Respiratory Effort Non-Labored 03/17/21 04:11 Respiratory Depth Normal 03/17/21 04:11 Respiratory Pattern Normal 03/17/21 04:11 Blood Pressure 134/74 H 03/17/21 15:38 Blood Pressure Mean 94 03/17/21 15:38 Blood Pressure Source Monitor 03/17/21 15:38 Blood Pressure Position Semi-Fowlers 03/17/21 15:38 Blood Pressure Location Right Arm 03/17/21 15:38 Pulse Ox 97 03/17/21 15:38 Oxygen Delivery Method Room Air 03/17/21 15:38 Oxygen Flow Rate (L/min) 2 03/15/21 08:19 Laboratory Results - last 24 hr 03/15/21 01:45: Blood Type Cancelled, A1 Antigen Typing Cancelled, Rho(D) Type Cancelled, Antibody Screen Cancelled, Crossmatch See Detail 03/15/21 : Crossmatch See Detail 03/16/21 13:40: Diff Path Review Reviewed 03/17/21 05:50: WBC 250.2 H*, RBC 2.56 L, Hgb 7.1 L, Hct 29.3 L, MCV 114.5 H, MCH 27.7, MCHC 24.2 L, RDW Std Deviation 105.8 H, RDW Coeff of Alisa 28.0 H, Plt Count 173, MPV 9.0, Immature Gran % (Auto) 0.200, Neut % (Auto) 2.7 L, Lymph % (Auto) 91.7 H, [place] % (Auto) 5.3, Eos % (Auto) 0.0, Baso % (Auto) 0.1, Absolute Neuts (auto) 6.7, Absolute Lymphs (auto) 229.41 H, Nucleated RBC % 0.6, Differential Comment SCANNED, Diff Path Review May foll, Polychromasia 1+, Anisocytosis 2+, Macrocytosis 2+, Retic Count 15.05 H, Immature Retic Fraction 34.50 H, Retic Hgb Equivalent 28.8 L 03/17/21 05:50: Sodium 142, Potassium 5.1, Chloride 111 H, Carbon Dioxide 22.0, Anion Gap 9, BUN 13, Creatinine 0.83, Estim Creat Clear Calc 111.84, Est GFR (MDRD) Af Amer 121, Est GFR (MDRD) Non-Af 100, BUN/Creatinine Ratio 15.7, Glucose 82, Calcium 6.4 L*, Total Bilirubin 2.60 H, AST 20, ALT 9 L, Alkaline Phosphatase 100, Lactate Dehydrogenase 307 H, Total Protein 6.1 L, Albumin 2.0 L , Globulin 4.1, Albumin/Globulin Ratio 0.5 L 03/17/21 05:50: Magnesium 1.8 Microbiology 03/16/21 13:11 Stool Stool Occult Blood (MERYL) - Final Diagnostic Data Chest X-Ray 03/15/21 01:00 IMPRESSION: Small right-sided pleural effusion. Also, fluid along the right lung minor fissure. Right basilar patchy opacities, likely atelectasis. Aspiration or pneumonia not excluded. Clear left lung. Unremarkable cardiac silhouette. No pneumothorax. Multilevel thoracic spondylosis. Electronically Signed: Javy Mckinney MD at 1:39 EDT Tel , Service support , Echocardiogram 03/15/21 13:54 Interpretation Summary Borderline dilated left ventricle. Left ventricular systolic function is normal. The estimated ejection fraction is 60 %. Apical false tendon noted. The left atrium is mildly enlarged. Trivial mitral valve insufficiency. Trivial tricuspid valve insufficiency. Mild diffuse aortic valve thickening. Mild focal aortic valve calcification. Trivial pericardial effusion. There are no echocardiographic indications of cardiac tamponade. Unable to estimate RV systolic pressure due to insufficient tricuspid regurgitant envelope. Diastolic function is indeterminate. Ordering Physician: Tracy West Referring Physician: Ladonna Lou Performed By: Cyndie Albert RDCS, RVT Venous Doppler Study 03/15/21 15:11 Interpretation Summary Deep veins of the lower extremities are bilaterally patent and compressible segmentally. There is no evidence of deep vein thrombosis on either side. Valvular competence appears intact within the proximal deep venous systems bilaterally. The great saphenous veins appear bilaterally patent and compressible segmentally. The common femoral vein and sapheno-femoral junction were not visualized on either side. A non-vascular, hypoechoic structure is noted in the right popliteal space and proximal calf, measuring 2.23 cm x 2.2 cm. This probably represents a popliteal cyst. Clinical correlation is advised. Ordering Physician: Sada Jones Referring Physician: LADONNA LOU Performed By: Birgit Tena, DEBORAHCS, RVT Assessment & Plan Assessment/Plan (1) Anemia, macrocytic: PLAN: Secondary to autoimmune hemolytic anemia, direct raad IgG 2+. 5 units PRBCs have been transfused. Overall, he has tolerated transfusions well. Hgb today 7.1. Target is Hgb 7 g/dl. Iron studies showed he is deficient, although will not replenish as he has received some elemental iron with transfusions. Occult blood stool negative. Continue prednisone 100 mg with folic acid daily and GI prophylaxis. Patient is aware upon discharge, he will need to be on high dose steroids, folic acid and PPI for duration of 2-3 weeks, then taper. I stressed the importance of adherence to steroid therapy. CBC/CMP/retic count daily. (2) Lymphocytosis: PLAN: WBC and abs lymph count suggestive of CLL. Flow cytometry and FISH lymph panel are pending. LDH WNL, again ANC and platelets are preserved olive cating anemia is not resulting from crowding of bone marrow. Will determine if there are indications for treatment in the out patient setting once flow/FISH are reported and severe anemia has improved. Repeat LDH daily. (3) Edema, lower extremity: PLAN: Venous dopper negative for DVT. Primary team managing diuretics. Patient to follow up with [facility] on Sunday03/21/2021. Case reviewed and discussed with Dr. Mccabe who is in agreement with the aforementioned plan.
[2021-03-17] MEDS: Pantoprazole Sodium 40 MG Tablet PO (21:41)
[2021-03-18] VITALS (18 sets, daily range): BP systolic 124–149; BP diastolic 72–86; PULSE 68–95; RESP 16–18; TEMP 36.2–37.1; O2SAT 93–100
[2021-03-18 05:20] LABS: Absolute Neutrophil Count 6.7 X10^3/uL (2.0-7.7); Basophil# 0.11 X10^3/uL; Hematocrit 27.6 % (40-54); Hemoglobin 6.6 g/dL (13.0-16.5); Lymphocyte % 91.9 % (19-41); Mean Corp Hgb Conc 23.9 g/dL (32-36); Mean Corpuscular Hgb 27.6 pg (27.0-32.0); Mean Corpuscular Volume 115.5 fL (80-94); Mean Platelet Vol. 9.2 fl (6.2-12.0); Monocyte# 11.55 X10^3/uL; Monocyte% 4.9 % (0-10); NRBC Flagged by Analyzer 0.2 % (0-5); Neutrophil # 6.71 X10^3/uL (2.7-7.7); POSITIVE COUNT YES; POSITIVE DIFFERENTIAL YES; POSITIVE MORPHOLOGY YES; Platelet Count 176 K/mm3 (150-450); RBC Distribution Width CV 26.6 % (11.6-14.6); Red Blood Count 2.39 M/mm3 (4.6-6.2)
[2021-03-18 05:33] LABS: RBC Distribution Width SD 108.9 fl (35.1-43.9)
[2021-03-18 05:34] LABS: Differential Indicated SCAN CRITERIA MET; White Blood Count 233.5 K/mm3 (4.4-11.0)
[2021-03-18 05:47] LABS: ALB/GLOB Ratio 0.7 RATIO (0.9-2.4); AST(SGOT) 11 U/L (15-37); Alanine Aminotransfer ALT/SGPT 10 U/L (16-61); Albumin, Serum 2.6 g/dL (3.2-5.0); Alkaline Phosphatase 97 U/L (45-117); Anion Gap 8 (5-15); BUN 18 mg/dL (7-18); BUN/Creat Ratio 26.9 RATIO (10-20); Calcium,Total 8.1 mg/dL (8.5-10.1); Chloride 106 mmol/L (98-107); Creatinine, Serum 0.67 mg/dL (0.70-1.30); EST Glomerular Filtration Rate 127 mL/min (>60); Est Glom Filt Rate - Afr Amer 154 mL/min (>60); Estimated Creatinine Clearance 138.55 ml/min; Globulin 3.5 g/dL (2.2-4.2); Glucose 106 mg/dL (74-106); Potassium 3.5 mmol/L (3.5-5.1); Protein, Total 6.1 g/dL (6.4-8.2); Sodium Level 140 mmol/L (136-145)
[2021-03-18] MEDS: Furosemide 40 MG/4 ML Vial IV ×3 (06:44→22:25)
[2021-03-18] MEDS: 0.9% Saline Lock 10 ML Syringe IV ×3 (06:44→22:25)
[2021-03-18 06:47] LABS: Anisocytosis 2+; Differential Comment SCANNED; Macrocytosis 2+; Polychromasia 1+
[2021-03-18] MEDS: Folic Acid 1 MG Tablet PO (08:10)
[2021-03-18] MEDS: Pantoprazole Sodium 40 MG Tablet PO ×2 (08:10→22:25)
[2021-03-18] MEDS: predniSONE 20 MG Tablet 100 MG PO (08:10)
[2021-03-18] MEDS: Amox/Clavulanate 875 MG Tablet PO ×2 (08:10→16:03)
--- NOTE | 2021-03-18 12:59 | WOUNDNOTE ---
Pt resting in bed states he showered this am. still draining a moderate amount from buttocks/brinda cleft. pt plans to follow up after discharge with his previous doctor. denies further needs at this time.
--- NOTE | 2021-03-18 14:00 | PCM.CONS.P ---
Assessment & Plan Assessment/Plan (1) DALAL (dyspnea on exertion): (2) Weakness: (3) Chronic lymphocytic leukemia: (4) Anemia, macrocytic: (5) Bilateral lower extremity edema: (6) Hepatitis C: QUALIFIERS: Viral hepatitis chronicity: unspecified Hepatic coma status: without hepatic coma Qualified Code(s): B19.20 - Unspecified viral hepatitis C without hepatic coma (7) Venous insufficiency of both lower extremities: PLAN: 61-year-old male with suspected chronic lymphocytic leukemia, seen today for palliative care consultation secondary to shortness of breath and overall weakness. 1. Dyspnea on exertion: Reports this has been slowly improving with blood transfusions. He is going to be following closely with oncology, likely weekly for an unknown time. 2. CLL/anemia/history of hep C/lower extremity edema/chronic venous insufficiency: Complicates overall care, management, recovery, and prognosis. He declines palliative services at this time. States he has superstitious when it comes to medical team coming in his home or if more than 1 or 2 providers are involved at a time. He would like to continue following with oncology. His father just and he had home health coming into the home and he thinks that hastened his . I did explain palliative services and he will let us know if he is interested in the future. Thank you for the opportunity to participate in this patient's care, please do not hesitate to contact [facility] with any further questions or concerns. Palliative direct line is [phone]. Greater than 50% of F2F visit dedicated to education and counseling of palliative care services, medications, comorbid conditions and potential assistance with management, and plan of care moving forward. Start time: 1400 End time: 1435 HPI Consult Data Date of Consult: 03/18/21 HPI Narrative HPI Narrative: MARYCRUZ VARGAS, is a 61 M who presented to [facility] 03/15/2021 with a progressive history of shortness of breath as well as lower extremity edema. Blood work showed significant macrocytic anemia and lymphocytosis. He does report a history of abnormalities with his red and white blood cells since around 2017, however possibly lost to follow-up? Had reported possibly [facility] physician told him there was nothing they can do. Also has history of vasculitis, venous insufficiency, malnutrition, and ulcer to the right foot. White count on presentation was 225.2, hemoglobin of 3.6. He has had some weight loss. He was admitted to the hospital for further evaluation and management. Patient was to receive several units of blood, however was unable secondary to multiple antibodies. Throughout the course of his stay, he was transfused 5 units total of PRBCs. Oncology was consulted for management in hospital. Clinical picture consistent with autoimmune hemolytic anemia, target hemoglobin of 7 mg/dL. They also wanted him on high doses of steroids for 2 to 3 weeks. Echocardiogram revealed borderline dilated left ventricle, LV systolic function normal, estimated EF of 60%, apical false tendon noted, left atrium moderately enlarged, trivial mitral and tricuspid valve insufficiency, mild diffuse aortic valve thickening, mild focal aortic valve calcification, trivial pericardial effusion, unable to estimate RVSP or diastolic dysfunction. Lower extremity Doppler was negative for DVT. He does have a possible popliteal cyst on the right. Patient is a current smoker. Patient lives alone in a two-story home, reports he is independent with ADLs. He is having difficulty making up the 2 flights of stairs in the past couple of weeks. He does drive and brother sometimes takes him to appointments or errands. He does not have a healthcare POA. Uses [email or web address] pharmacy and follows with Dr. Michaud for PCP. Nursing reports severe hidradenitis to buttocks and perirectal area. He is not wanting staff to assist in care of this area. Has a history of following with a specialist [facility] and has had few surgeries for the hidradenitis. He does have some malodorous drainage from the areas. Patient reports dyspnea has improved. He is not having any nausea, vomiting, diarrhea, or constipation. He does feel significantly weak in his legs but feels he can return home safely. He plans to stay in his father's house, who just recently so the house is empty. This is located in [place], [place] and he has a brother living there as well who can help. Patient typically lives in [place]. States he will be able to get to weekly oncology appointments. No current dizziness or recent syncope. Appetite has been decent. Urinating okay. He does admit to having several infected areas from hidradenitis. No fevers or chills. [facility] Medical History Anemia, macrocytic Bilateral lower extremity edema Chronic lymphocytic leukemia Lymphocytosis Home Medications NK 03/15/21 [History Last Taken Unknown] Allergy/AdvReac Type Severity Reaction Status Date / Time No Known Allergies Allergy Verified 02/23/17 11:54 Family History Other Diabetes Hypertension Surgical History H/O foot surgery History of tonsillectomy Social History household members: none Smoking Status: Light Smoker (<10/day) alcohol intake: current alcohol intake frequency: holidays/special occasions only substance use type: does not use ROS ROS Narrative Review of systems otherwise negative from a constitutional, HEENT, respiratory, cardiovascular, GI, genitourinary, musculoskeletal, skin, neurologic, psychiatric and hematologic system unless stated above. Physical Exam Const alert, oriented x3 and no apparent distress General Appearance: cooperative and comfortable HEENT normocephalic and head/scalp atraumatic Neck supple General: trachea midline Resp Effort and Inspection: able to speak in complete sentences and symmetric chest movement Auscultation: diminished lung sounds Cardio regular rate, regular rhythm, S1 normal heart sound and S2 normal heart sound GI soft to palpation Inspection: abdominal distention Extremity General Extremity: edema bilateral lower extremity (DEMOND hose in place. pitting) Details: moderate Skin no rashes or lesions noted Neuro moves all extremities and no focal motor deficits Psych mental status grossly normal Psych Narrative: says he is superstitious about home care (any type) Attitude: calm and engaged Activity / Motor Behavior: appropriate eye contact Speech: normal speech Attention / Concentration: attention grossly intact Memory / Cognition: memory grossly intact
[2021-03-18 14:25] LABS: Pathologist Review Reviewed
[2021-03-18 14:25] LABS: Pathologist Review Reviewed
--- NOTE | 2021-03-18 14:31 | PN_ITS ---
Documented by User: ISAIAH Trinidad 03/18/21 14:56 Subjective Subjective Patient seen and examined. Patient sitting in bed eating breakfast no distress noted. Patient states that he feels about the same as yesterday. Patient states that he is still having intermittent shortness of breath however he is not requiring oxygen and is ambulating without difficulty. Patient denies other needs at this time. Objective Data Objective Data Vital Signs: Vital Signs Temp Pulse Resp BP Pulse Ox 97.5 F L 84 18 141/80 H 99 03/18/21 14:20 03/18/21 14:20 03/18/21 14:20 03/18/21 14:20 03/18/21 14:20 Oxygen Flow Rate (L/min) 2 Oxygen Delivery Method Room Air Weight: 205 lb 7.533 oz Body Mass Index (BMI) 25.9 Intake & Output: Intake and Output for Last 24 Hours 03/16/21 03/17/21 03/18/21 23:59 23:59 23:59 Intake Total 2300 / 2300 170 / 170 400 / 400 Output Total 3100 / 3100 2160 / 2160 1850 / 1850 Balance -800 / -800 -1989 / -1989 -1450 / -1450 Lab / Micro Data Result Diagrams: 03/18/21 04:15 03/18/21 04:15 Labs: Laboratory Results - last 24 hr 03/15/21 01:45: Blood Type Cancelled, A1 Antigen Typing Cancelled, Rho(D) Type Cancelled, Antibody Screen Cancelled, Crossmatch See Detail 03/16/21 13:40: Hepatitis A IgM Ab Negative, Hepatitis A Ab Total Negative, Hep Bs Antigen Negative, Hep Bs Antibody , Hep B Core Total Ab Negative, Hep B Core IgM Ab Negative, Hepatitis Be Antibody Negative, Hepatitis Be Antigen Negative, Hepatitis Interpret Not Reportable 03/17/21 05:50: Diff Path Review Reviewed 03/18/21 04:15: WBC 233.5 H*, RBC 2.39 L, Hgb 6.6 L, Hct 27.6 L, MCV 115.5 H, MCH 27.6, MCHC 23.9 L, RDW Std Deviation 108.9 H, RDW Coeff of Alisa 26.6 H, Plt Count 176, MPV 9.2, Immature Gran % (Auto) 0.200, Neut % (Auto) 3.0 L, Lymph % (Auto) 91.9 H, [place] % (Auto) 4.9, Eos % (Auto) 0.0, Baso % (Auto) 0.0, Absolute Neuts (auto) 6.7, Absolute Lymphs (auto) 214.60 H, Nucleated RBC % 0.2, Differential Comment SCANNED, Diff Path Review Reviewed, Polychromasia 1+, Anisocytosis 2+, Macrocytosis 2+ 03/18/21 04:15: Sodium 140, Potassium 3.5, Chloride 106, Carbon Dioxide 26.0, Anion Gap 8, BUN 18, Creatinine 0.67 L, Estim Creat Clear Calc 138.55, Est GFR (MDRD) Af Amer 154, Est GFR (MDRD) Non-Af 127, BUN/Creatinine Ratio 26.9 H, Glucose 106, Calcium 8.1 L, Total Bilirubin 1.80 H, AST 11 L, ALT 10 L, Alkaline Phosphatase 97, Total Protein 6.1 L, Albumin 2.6 L, Globulin 3.5, Albumin/Globulin Ratio 0.7 L 03/18/21 09:20: Blood Type A POSITIVE, Antibody Screen NEGATIVE 03/18/21 09:20: Antibody Screen Cancelled Micro: Microbiology 03/16/21 13:11 Stool Stool Occult Blood (MERYL) - Final 03/15/21 09:25 Nasal Secretion SARS-CoV-2 Antigen (Rapid) - Final 03/15/21 02:55 Nasal Secretion SARS-CoV-2 Antigen (Rapid) - Final Physical Exam Const alert, oriented x3 and no apparent distress General Appearance: cooperative HEENT normocephalic and head/scalp atraumatic Eyes conjunctivae normal and no scleral icterus Neck supple and no JVD General: trachea midline Resp normal respiratory effort, normal air movement and clear to auscultation bilaterally Cardio regular rate, regular rhythm, S1 normal heart sound and S2 normal heart sound Peripheral Pulses: pulses 2+ throughout GI normal to inspection, nondistended, normoactive bowel sounds, soft to palpation and non-tender Extremity normal capillary refill and no clubbing, cyanosis or edema General Extremity: no tenderness to palpation of joints or extremities Skin General Skin Exam: no breakdown and turgor normal Lesions: no lesions Rashes: no rashes Neuro no focal motor deficits and no sensory deficits noted Speech: speech normal Motor Exam: general weakness Psych thought process normal, cooperative and affect normal Appearance: appropriate Assessment & Plan Assessment/Plan (1) Anemia, macrocytic: (2) Chronic lymphocytic leukemia: PLAN: 1. Acute severe symptomatic anemia secondary to autoimmune hemolytic anemia -Hematology following, -Status post 4 units packed red blood cells -Hemoglobin 6.6 today patient will receive 1 unit packed red blood cells -Continue prednisone, PPI transition to p.o., continue upon discharge per oncology -Stool occult blood negative 2. Severe leukocytosis, probable CLL -Hematology/oncology consulted as above -Flow cytometry and FISH lymph panel pending -Patient will follow with oncology as outpatient following medical stabilization -Obtain CBC and CMP in a.m. along with LDH and retake count per oncology recommendation -Patient was evaluated by palliative care today however patient refused at this time. 3. Bilateral lower extremity edema -Duplex ultrasound negative for DVT -Echo demonstrates EF 60% -Lasix increased from twice daily to every 8 hour -DEMOND hose ordered 4. Severe buttock hidradenitis -Wound nurse following -Continue Flagyl and Augmentin -Patient will need outpatient follow-up for surgical evaluation DVT prophylaxis-SCDs This patient was seen by Ibis Calles NP-C under the supervision of Dr. Brandt. Documented by User: Dr. Snow Brandt MD 03/18/21 16:47 Objective Data Lab / Micro Data Result Diagrams: 03/18/21 04:15 03/18/21 04:15 Charges/Coding Addendum Addendum: This patient was seen in conjunction with Ibis Calles NP. I have independently interviewed and examined the patient and reviewed pertinent historical, laboratory, and other data. I have reviewed her note and concur with her documentation Patient was seen and examined. He feels much improved. He has been diuresing. Hemoglobin is less than 6.6. He will be transfused 2 units of blood. Physical Exam: Gen: Disheveled, pale, not jaundiced CVS:HS I +II, regular, no murmurs RESP: Diminished at lung bases GI: BS present and normal, soft, nontender, no palpable organs EXT: Bilateral leg edema +2 ASSESSMENT: 1. Acute severe symptomatic anemia 2. Acute autoimmune hemolytic anemia, direct Denny IgG 3. Iron def anemia 4. Elevated WBC count(lymphocytosis) likely secondary to underlying CLL 5. Severe hidradenitis suppurativa 6. Hypocalcemia Plan: He will be transfused with 2 units of packed RBCs continue on oral prednisone 100 mg p.o. daily Flow cytometry, FISH lymph panel Repeat blood work in a.m. Transfuse to keep Hb >7.0g.dl Continue on oral Augmentin Increase Lasix to 40 mg IV q. 8 Fluid restriction to less than 1500mls Visit Charges Inpatient E&M: 35247 Subs Hosp L3
[2021-03-18 17:38] LABS: Magnesium 1.9 mg/dL (1.6-2.6)
[2021-03-19] VITALS (7 sets, daily range): BP systolic 123–148; BP diastolic 55–79; PULSE 67–94; RESP 16–18; TEMP 36.6–36.8; O2SAT 95–98
[2021-03-19] MEDS: 0.9% Saline Lock 10 ML Syringe IV (06:15)
[2021-03-19] MEDS: Furosemide 40 MG/4 ML Vial IV (06:15)
[2021-03-19 06:34] LABS: Absolute Lymphocyte Count 222.03 X10^3/uL (0.83-4.51); Basophil# 0.15 X10^3/uL; Basophil% 0.1 % (0-1); Eosinophil# 0.02 X10^3/uL; Hematocrit 32.9 % (40-54); Hemoglobin 8.4 g/dL (13.0-16.5); Lymphocyte # 222.03 X10^3/ul (0.83-4.51); Lymphocyte % 91.9 % (19-41); Mean Corp Hgb Conc 25.5 g/dL (32-36); Mean Corpuscular Volume 113.4 fL (80-94); Mean Platelet Vol. 9.1 fl (6.2-12.0); Monocyte# 12.98 X10^3/uL; Monocyte% 5.4 % (0-10); NRBC Flagged by Analyzer 0.1 % (0-5); Neutrophil # 5.97 X10^3/uL (2.7-7.7); Neutrophil % 2.4 % (47-70); POSITIVE COUNT YES; POSITIVE DIFFERENTIAL YES; POSITIVE MORPHOLOGY YES; Platelet Count 173 K/mm3 (150-450); RBC Distribution Width CV 25.2 % (11.6-14.6); RBC Distribution Width SD 97.4 fl (35.1-43.9); Reticulocyte Count 12.76 % (0.5-1.5)
[2021-03-19 06:49] LABS: Differential Indicated SCAN CRITERIA MET; White Blood Count 241.7 K/mm3 (4.4-11.0)
--- NOTE | 2021-03-19 06:51 | NURSING ---
Pts primary rn aware of wbc's of 241.7 at this time.
[2021-03-19 07:03] LABS: Anisocytosis 2+; Differential Comment SCANNED; Macrocytosis 2+; Polychromasia RARE
[2021-03-19 07:04] LABS: Hypochromasia RARE
[2021-03-19 07:16] LABS: ALB/GLOB Ratio 0.8 RATIO (0.9-2.4); AST(SGOT) 15 U/L (15-37); Alanine Aminotransfer ALT/SGPT 12 U/L (16-61); Albumin, Serum 2.8 g/dL (3.2-5.0); Alkaline Phosphatase 93 U/L (45-117); Anion Gap 5 (5-15); BUN 27 mg/dL (7-18); BUN/Creat Ratio 32.2 RATIO (10-20); Calcium,Total 8.2 mg/dL (8.5-10.1); Chloride 105 mmol/L (98-107); Creatinine, Serum 0.84 mg/dL (0.70-1.30); EST Glomerular Filtration Rate 98 mL/min (>60); Est Glom Filt Rate - Afr Amer 119 mL/min (>60); Estimated Creatinine Clearance 110.51 ml/min; Globulin 3.5 g/dL (2.2-4.2); Glucose 89 mg/dL (74-106); LDH 254 U/L (87-241); Potassium 3.5 mmol/L (3.5-5.1); Protein, Total 6.3 g/dL (6.4-8.2); Sodium Level 141 mmol/L (136-145)
[2021-03-19] MEDS: Amox/Clavulanate 875 MG Tablet PO (08:30)
[2021-03-19] MEDS: Folic Acid 1 MG Tablet PO (08:30)
[2021-03-19] MEDS: predniSONE 20 MG Tablet 100 MG PO (08:31)
[2021-03-19] MEDS: Pantoprazole Sodium 40 MG Tablet PO (09:58)
--- NOTE | 2021-03-19 10:43 | DCINST_ITS ---
Discharge Instructions Diet Discharge Diet: 8 Cup Fluid Restriction Activity Discharge Activity: Return to Normal Activity Dressing / Incision Call your doctor if you observe: Fever of 101 or Higher, Shortness of breath (increased), Dizziness, Chest pain and Increased palpitations (irregular heartbeat) Follow Up Care Please Follow Up With: Sada Jones NP, METAL BONDING CRIB ATTENDANT-C When: Sunday03/21/2021 as scheduled Test Results: Test results from this visit will be discussed in further detail at your follow-up appointment, if applicable. Discharge Plan Admission Admit Date/Time: 03/15/21 02:55 Primary Reason for Your Visit: Shortness of breath Attending Provider: Snow Brandt Primary Care Provider: Marlon Michaud Consulting Providers: Sada Jones NP ; Raza Mock ; Fer Philip ; Jackelyn Leal NP Discharge Orders/Prescriptions Prescriptions: New amoxicillin-pot clavulanate 875-125 mg Tablet 875 mg PO BIDCM 4 Days Qty: 7 RF: 0 prednisone 20 mg Tablet 100 mg PO BREAKFAST 14 Days Qty: 70 RF: 0 pantoprazole 20 mg tablet,delayed release (DR/EC) 40 mg PO BID 30 Days Qty: 120 RF: 0 folic acid 1 mg Tablet 1 mg PO BREAKFAST 30 Days Qty: 30 RF: 0 furosemide 40 mg tablet 40 mg PO BID 30 Days Qty: 60 RF: 0 Referrals / Follow Up: Marlon Michaud MD [Primary Care Provider] - Disposition Disposition (needs filled in before D/C Order can be placed): Home, Self Care
--- NOTE | 2021-03-19 10:58 | PCM.DC.SUM ---
Documented by User: ISAIAH Trinidad 03/19/21 11:05 Providers Date of Admission: 03/15/21 Primary Care Physician: Dr. Marlon Michaud MD Consultations 03/15/21 02:36 Consult: Oncology/Hematology Routine Consulting Provider: Sada Jones NP Reason for Consult: CLL, symptomatic macrocytic anemia EMERGENT Consult: Yes Notified: Yes Date Notified: 03/15/21 Time Notified: 02:36 Method of Notification: Verbal 03/15/21 05:42 Consult: Oncology/Hematology Routine Consulting Provider: Sada Jones NP Reason for Consult: symptomatic anemia, elevated white count EMERGENT Consult: No Notified: Yes Date Notified: 03/15/21 Time Notified: 08:00 Method of Notification: Verbal 03/15/21 12:48 Consult: Medical Record Coder / Pulmonary Medicine Routine Consulting Provider: Pulmonary Medicine [facility] Reason for Consult: Autoimmune hemolytic anemia EMERGENT Consult: No Notified: Yes Date Notified: 03/15/21 Time Notified: 14:33 Method of Notification: Verbal 03/16/21 08:48 Consult: Onc/Wound/aerial gunner Routine Comment: Reason for Consult:: hydrodenitis Reason For Visit: SYMPTOMATIC ANEMIA Diagnosis Discharge Diagnosis (1) Anemia, macrocytic: Status: Acute Code(s): D53.9 - Nutritional anemia, unspecified (2) Chronic lymphocytic leukemia: Status: Acute Code(s): C91.10 - Chronic lymphocytic leukemia of B-cell type not having achieved remission Medications at Discharge Home Medications amoxicillin-pot clavulanate 875 mg PO BIDCM 4 Days #7 tab 03/19/21 folic acid 1 mg PO BREAKFAST 30 Days #30 tab 03/19/21 furosemide 40 mg PO BID 30 Days #60 tab 03/19/21 pantoprazole 40 mg PO BID 30 Days #120 tab 03/19/21 prednisone 100 mg PO BREAKFAST 14 Days #70 tab 03/19/21 Hospital Course Procedures 2-D Echocardiogram, Blood transfusion and EKG Summary of Care Provided Minutes Spent on Discharge: 35 Hospital Course: Patient is a 61-year-old male who presents to the ER with complaints of increased shortness of breath with a history of CLL. Over the course of this admission patient received 6 units of packed red blood cells. Patient was followed throughout inpatient admission by hematology and oncology and will follow with them outpatient for his CLL. Patient will be discharged on prednisone, folic acid and PPI per recommendations from oncology as well as Augmentin for patient acutely infected chronic ulcer. Physical Exam Const alert, oriented x3 and no apparent distress General Appearance: cooperative HEENT normocephalic and head/scalp atraumatic Eyes conjunctivae normal and no scleral icterus Neck supple and no JVD General: trachea midline Resp normal respiratory effort, normal air movement and clear to auscultation bilaterally Cardio regular rate, regular rhythm, S1 normal heart sound and S2 normal heart sound GI normal to inspection, nondistended, normoactive bowel sounds, soft to palpation and non-tender Extremity normal capillary refill and no clubbing, cyanosis or edema General Extremity: no tenderness to palpation of joints or extremities Skin skin turgor normal General Skin Exam: no breakdown Lesions: no lesions Rashes: no rashes Neuro no focal motor deficits and no sensory deficits noted Speech: speech normal Motor Exam: Negative for general weakness Psych affect normal Appearance: appropriate Weight / BMI Weight Weight: 196 lb 13.965 oz Body Mass Index (BMI) 25.9 ABG / Lab / Microbiology Data Result Diagrams: 03/19/21 05:43 03/19/21 05:43 Laboratory: Laboratory Results - last 24 hr 03/15/21 01:45: Blood Type Cancelled, A1 Antigen Typing Cancelled, Rho(D) Type Cancelled, Antibody Screen Cancelled, Crossmatch See Detail 03/15/21 : Crossmatch See Detail 03/17/21 05:50: Diff Path Review Reviewed 03/18/21 04:15: Diff Path Review Reviewed 03/18/21 04:15: Magnesium 1.9 03/18/21 09:20: Blood Type A POSITIVE, Antibody Screen NEGATIVE 03/18/21 09:20: Antibody Screen Cancelled 03/19/21 05:43: WBC 241.7 H*, RBC 2.90 L, Hgb 8.4 L, Hct 32.9 L, MCV 113.4 H, MCH 29.0, MCHC 25.5 L D, RDW Std Deviation 97.4 H, RDW Coeff of Alisa 25.2 H, Plt Count 173, MPV 9.1, Immature Gran % (Auto) 0.200, Neut % (Auto) 2.4 L, Lymph % (Auto) 91.9 H, [place] % (Auto) 5.4, Eos % (Auto) 0.0, Baso % (Auto) 0.1, Absolute Neuts (auto) 6.0, Absolute Lymphs (auto) 222.03 H, Nucleated RBC % 0.1, Differential Comment SCANNED, Diff Path Review May foll, Polychromasia RARE, Hypochromasia RARE, Anisocytosis 2+, Macrocytosis 2+, Retic Count 12.76 H, Immature Retic Fraction 31.60 H, Retic Hgb Equivalent 30.0 03/19/21 05:43: Sodium 141, Potassium 3.5, Chloride 105, Carbon Dioxide 31.0, Anion Gap 5, BUN 27 H, Creatinine 0.84, Estim Creat Clear Calc 110.51, Est GFR (MDRD) Af Amer 119, Est GFR (MDRD) Non-Af 98, BUN/Creatinine Ratio 32.2 H, Glucose 89, Calcium 8.2 L, Total Bilirubin 1.80 H, AST 15, ALT 12 L, Alkaline Phosphatase 93, Lactate Dehydrogenase 254 H, Total Protein 6.3 L, Albumin 2.8 L, Globulin 3.5, Albumin/Globulin Ratio 0.8 L Microbiology: Microbiology 03/16/21 13:11 Stool Stool Occult Blood (MERYL) - Final 03/15/21 09:25 Nasal Secretion SARS-CoV-2 Antigen (Rapid) - Final 03/15/21 02:55 Nasal Secretion SARS-CoV-2 Antigen (Rapid) - Final D/C Instructions Discharge Diet: 8 Cup Fluid Restriction Call your doctor if you observe: Fever of 101 or Higher, Shortness of breath (increased), Dizziness, Chest pain and Increased palpitations (irregular heartbeat) Please Follow Up With: Sada Jones NP, HEALTH AND WELLNESS INSTRUCTOR-C When: Sunday03/21/2021 as scheduled Meaningful Use Info Meaningful Use Diagnoses (Choose all that apply): None applicable Discharge Plan Admission Admit Date/Time: 03/15/21 02:55 Primary Reason for Your Visit: Shortness of breath Attending Provider: Snow Brandt Primary Care Provider: Marlon Michaud Consulting Providers: Sada Jones HEALTH AND WELLNESS INSTRUCTOR ; Raza Mock ; Fer Philip ; Jackelyn Leal HEALTH AND WELLNESS INSTRUCTOR Instructions Patient Instructions: What Is Leukemia? Discharge Orders/Prescriptions Prescriptions: New amoxicillin-pot clavulanate 875-125 mg Tablet 875 mg PO BIDCM 4 Days Qty: 7 RF: 0 prednisone 20 mg Tablet 100 mg PO BREAKFAST 14 Days Qty: 70 RF: 0 pantoprazole 20 mg tablet,delayed release (DR/EC) 40 mg PO BID 30 Days Qty: 120 RF: 0 folic acid 1 mg Tablet 1 mg PO BREAKFAST 30 Days Qty: 30 RF: 0 furosemide 40 mg tablet 40 mg PO BID 30 Days Qty: 60 RF: 0 Referrals / Follow Up: Marlon Michaud MD [Primary Care Provider] - Sada Jones NP, HEALTH AND WELLNESS INSTRUCTOR-C [Nurse Practitioner] - In 1 Week (Call for Appointment) Disposition Disposition (needs filled in before D/C Order can be placed): Home, Self Care Documented by User: Dr. Snow Brandt MD 03/19/21 15:49 Providers Date of Admission: 03/15/21 Reason For Visit: SYMPTOMATIC ANEMIA Diagnosis Discharge Diagnosis (1) Acute diastolic CHF (congestive heart failure): Status: Acute Code(s): I50.31 - Acute diastolic (congestive) heart failure (2) Hidradenitis: Status: Chronic Code(s): L73.2 - Hidradenitis suppurativa Medications at Discharge Home Medications amoxicillin-pot clavulanate 875 mg PO BIDCM 4 Days #7 tab 03/19/21 folic acid 1 mg PO BREAKFAST 30 Days #30 tab 03/19/21 furosemide 40 mg PO BID 30 Days #60 tab 03/19/21 pantoprazole 40 mg PO BID 30 Days #120 tab 03/19/21 prednisone 100 mg PO BREAKFAST 14 Days #70 tab 03/19/21 ABG / Lab / Microbiology Data Result Diagrams: 03/19/21 05:43 03/19/21 05:43 Discharge Plan Admission Admit Date/Time: 03/15/21 02:55 Primary Reason for Your Visit: Shortness of breath Attending Provider: Snow Brandt Primary Care Provider: Marlon Michaud Consulting Providers: Sada Jones NP ; Raza Mock ; Fer Philip ; Jackelyn Leal NP Instructions Patient Instructions: What Is Leukemia? Discharge Orders/Prescriptions Prescriptions: New amoxicillin-pot clavulanate 875-125 mg Tablet 875 mg PO BIDCM 4 Days Qty: 7 RF: 0 prednisone 20 mg Tablet 100 mg PO BREAKFAST 14 Days Qty: 70 RF: 0 pantoprazole 20 mg tablet,delayed release (DR/EC) 40 mg PO BID 30 Days Qty: 120 RF: 0 folic acid 1 mg Tablet 1 mg PO BREAKFAST 30 Days Qty: 30 RF: 0 furosemide 40 mg tablet 40 mg PO BID 30 Days Qty: 60 RF: 0 Referrals / Follow Up: Marlon Michaud MD [Primary Care Provider] - Sada Jones NP, HEALTH AND WELLNESS INSTRUCTOR-C [Nurse Practitioner] - In 1 Week (Call for Appointment) Disposition Disposition (needs filled in before D/C Order can be placed): Home, Self Care Charges/Coding Addendum Addendum: This patient was seen in conjunction with Ibis Calles. I have independently interviewed and examined the patient and reviewed pertinent historical, laboratory, and other data. I have reviewed her note and concur with her documentation 61-year-old male with past medical history of iron deficiency anemia, hidradenitis who comes in with progressive shortness of breath, bilateral leg swelling ongoing for about 2 weeks. Patient's hemoglobin was found to be 3.6. He could not be transfused emergently because he had multiple antibodies. Hematology was consulted from the ED. Patient's direct antibody globulin test was positive. He was transfused blood from the [place] [facility]. Chest x-ray shows small right pleural effusion, patchy basilar opacities Doppler ultrasound of his lower extremity was negative for acute DVT 2D echo shows EF of 60%, normal left ventricular systolic function, trivial valvular disease Patient had a total of 5 units of blood transfused during this admission. He also received IV Lasix. He was also seen by hematology and started on prednisone. He will remain on prednisone and will follow up with hematology weekly. He was asked also to follow-up with his primary care doctor within 2 weeks. His shortness of breath as well as bilateral leg swelling improved dramatically on Lasix. He lost about 12 pounds of water weight in this admission. He was discharged on oral Lasix. Physical Exam: Gen: Disheveled, pale, not jaundiced CVS:HS I +II, regular, no murmurs RESP: Diminished at lung bases GI: BS present and normal, soft, nontender, no palpable organs EXT: Bilateral leg edema +1-2, improved ASSESSMENT: 1. Acute severe symptomatic anemia 2. Acute autoimmune hemolytic anemia, direct Denny IgG 3. Iron def anemia 4. Elevated WBC count(lymphocytosis) likely secondary to underlying CLL 5. Severe hidradenitis suppurativa 6. Hypocalcemia 7. Acute diastolic CHF secondary to severe anemia, present on admission Visit Charges Inpatient E&M: 27373 Disch Hosp
[2021-03-21 12:46] LABS: Pathologist Review Reviewed
--- NOTE | 2021-03-21 17:19 | CASEMGMT ---
RN KAREL Discharge Follow-up Phone Call: MAGO: Kilo Strata: 3 Call Date: 03/21/21 Discharge Date: 03/19/21 Time of Call: 1502 Admitting Diagnosis: anemia This RN CM attempted to contact pt for discharge follow-up. No answer received and voicemail has not been setup. Melinda Fontaine RN CM
== END 2021-03-19 15:34 | disposition home or self-care (01) | DRG 808 ==
LOC: ED 02:36 → PCU 03:08
PROVIDERS: Internal Medicine Hematology & Oncology; Nurse Practitioner Family; Admitting Provider Hospitalist; Emergency Provider Emergency Medicine; PCP Family Medicine; Visit Provider Internal Medicine
DX: D59.10 Autoimmune hemolytic anemia, unspecified (principal); I50.31 Acute diastolic (congestive) heart failure; C91.10 Chronic lymphocytic leukemia of B-cell type not having achieved remission; I45.2 Bifascicular block; D50.9 Iron deficiency anemia, unspecified; D53.9 Nutritional anemia, unspecified; L73.2 Hidradenitis suppurativa; E83.51 Hypocalcemia; F17.210 Nicotine dependence, cigarettes, uncomplicated; B19.20 Unspecified viral hepatitis C without hepatic coma
CPT/HCPCS: 36415; 71046; 80048; 80053; 82248; 82274; 82607; 82728; 82746; 83010; 83540; 83550; 83615; 83735; 85014; 85018; 85025; 85045; 86704; 86705; 86706; 86707; 86708; 86709; 86850; 86870; 86880; 86900; 86901; 86902; 86920; 86922; 87340; 87350; 87426; 87521; 93005; 93306; 93970; 97802; 99285; 99406; J7040; P9016; A4216; J0610; J1940

== ENCOUNTER 2021-03-30 11:20 | Inpatient (IN) | payer MEDICARE, SELFPAY ==
[2021-03-30] VITALS (12 sets, daily range): BP systolic 118–156; BP diastolic 54–75; PULSE 68–85; RESP 14–18; TEMP 35.6–36.8; O2SAT 95–100; BMI 24.5; BMI 25.1
--- NOTE | 2021-03-30 11:46 | EDS_ITS ---
HPI History of Present Illness Chief Complaint: Abn Labs Informant: patient Narrative Narrative: Sent in by oncology Dr. Fisher, for whom I discussed with prior to patient arrival. Patient history of CLL with autoimmune hemolytic anemia along with iron deficiency anemia. Patient was admitted nearly 2 weeks ago for similar stating hemoglobin was 3 at that time. Patient received 6 units of blood that was specialized. He was discharged with a hemoglobin of 8.4. He was started on high-dose steroids in the hospital was continued on 100 mg every morning. He denies any missed doses. Patient had previsit lab draws this morning reported hemoglobin was 5.3. Patient sent in here for blood transfusions with a goal hemoglobin of 8. Chronic CLL with white cell elevated at 259. His platelets normal at 212. Patient states last couple days noted mild fatigue little uns table on gait. There is no lightheaded symptoms. No dyspnea. Denies any blood in the stools. Denies vomiting or diarrhea. Reviewing from records he was discharged 11 days ago. He was in the hospital for 5 days. 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 Bilateral lower extremity edema Chronic lymphocytic leukemia Edema, lower extremity History of hepatitis B Iron deficiency anemia due to chronic blood loss Home Medications folic acid 1 mg PO BREAKFAST 30 Days #30 tab 03/19/21 [Rx Last Taken 03/30/21] furosemide 40 mg PO BID 30 Days #60 tab 03/19/21 [Rx Last Taken 03/29/21] pantoprazole 40 mg PO BID 30 Days #120 tab 03/19/21 [Rx Last Taken 03/30/21] prednisone 100 mg PO BREAKFAST 14 Days #70 tab 03/19/21 [Rx Last Taken 03/30/21] Allergy/AdvReac Type Severity Reaction Status Date / Time No Known Allergies Allergy Verified 03/30/21 11:22 Family History Father Diabetes Mother Hypertension Surgical History H/O foot surgery History of tonsillectomy Social History household members: none Smoking Status: Light Smoker (<10/day) second hand exposure: No alcohol intake: current alcohol intake frequency: holidays/special occasions only details: occasionally diet: low salt estelle/jain: Mu-Ism seatbelt use: always do you feel safe at home: Yes ROS ROS ED Constitutional Constitutional ED: Denies chills, fever(s) or sweats Eyes Eyes: Denies change in vision ENT ENT ED: Denies dysphagia or sore throat Cardiovascular Cardiovascular: Denies chest pain, leg edema, palpitations or racing heartbeat Respiratory/Chest Respiratory/Chest: Denies cough, dyspnea or dyspnea on exertion Gastrointestinal Gastrointestinal: Denies abdominal pain, diarrhea, nausea or vomiting Genitourinary Genitourinary ED: Denies dysuria, hematuria or urinary frequency Musculoskeletal Musculoskeletal: Denies back pain, extremity pain or neck pain Integumentary Denies rash or wounds Neurologic Neurologic: Denies headache(s), paresthesias or weakness EXAM Physical Exam Const Vital Signs: 03/30/21 11:20 03/30/21 11:50 Temperature 97.8 F Temperature Source Temporal Pulse Rate 75 Respiratory Rate 18 Respiratory Effort Normal Non-Labored Respiratory Pattern Normal Blood Pressure 122/60 H Blood Pressure Mean 80 Pulse Ox 100 Oxygen Delivery Method Room Air Positive well nourished and well developed General Appearance ED: well developed, NAD and pallor HEENT Reports moist mucous membranes normocephalic and atraumatic Eyes PERRL, EOMs intact bilaterally and conjunctivae normal General Eye ED: Yes normal appearance of both eyes and pale conjunctiva Neck no lymphadenopathy and supple General: Negative for tenderness Chest Wall Chest: Negative for tenderness Resp normal respiratory effort and normal air movement Effort and Inspection: symmetric chest movement; Negative for respiratory distress Cardio regular rate, regular rhythm and no murmurs Peripheral Pulses: pulses 2+ throughout GI normal to inspection, nondistended, normoactive bowel sounds and non-tender Palpation: Negative for guarding or rebound tenderness present Back/Spine no CVA tenderness and no thoracic nor lumbar tenderness Extremity normal to inspection General Extremety ED: Negative for edema or tenderness General Extremity: Negative for edema Neuro oriented x3 and no sensory deficits noted Sensorium / Orientation: awake and alert Skin General Skin Exam: pallor MDM MDM MDM Narrative Medical decision making narrative: Patient vital signs are stable. Noted from blood work outpatient hemoglobin 5.3. He is typed and crossed for 4 units of blood. Discussed with blood bank, last time took 12 hours, however they state possibly sooner doing to managing the patient a couple weeks ago. Patient does have history of heart failure therefore will require slow transfusion. Will discuss with hospitalist service for admission.\ I discussed with Dr. Garner for admission. Lab Data Labs: Laboratory Results - last 24 hr 03/30/21 03/30/21 03/30/21 10:55 11:40 11:40 WBC 262.4 H* RBC 1.75 L Hgb 5.4 L* Hct 23.8 L MCV 136.0 H MCH 30.9 MCHC 22.7 L RDW Std Deviation 106.2 H RDW Coeff of Alisa 22.5 H Plt Count 234 MPV 9.3 Immature Gran % (Auto) 0.300 Neut % (Auto) 3.7 L Lymph % (Auto) 92.0 H [place] % (Auto) 4.0 Eos % (Auto) 0.0 Baso % (Auto) 0.0 Absolute Neuts (auto) 9.7 H Absolute Lymphs (auto) 241.35 H Nucleated RBC % 0.3 Differential Comment Diff Path Review May foll Anisocytosis 1+ PT 13.1 INR 1.1 APTT 25.3 Sodium Potassium Chloride Carbon Dioxide Anion Gap BUN Creatinine Estim Creat Clear Calc Est GFR (MDRD) Af Amer Est GFR (MDRD) Non-Af BUN/Creatinine Ratio Glucose Calcium Hepatitis C Antibody Non-Reactive Blood Type Antibody Screen Crossmatch 03/30/21 03/30/21 03/30/21 11:40 11:40 11:40 WBC RBC Hgb Hct MCV MCH MCHC RDW Std Deviation RDW Coeff of Alisa Plt Count MPV Immature Gran % (Auto) Neut % (Auto) Lymph % (Auto) [place] % (Auto) Eos % (Auto) Baso % (Auto) Absolute Neuts (auto) Absolute Lymphs (auto) Nucleated RBC % Differential Comment Diff Path Review Anisocytosis PT INR APTT Sodium 141 Potassium 3.8 Chloride 105 Carbon Dioxide 30.0 Anion Gap 6 BUN 28 H Creatinine 0.84 Estim Creat Clear Calc 110.51 Est GFR (MDRD) Af Amer 119 Est GFR (MDRD) Non-Af 98 BUN/Creatinine Ratio 33.3 H Glucose 94 Calcium 9.0 Hepatitis C Antibody Blood Type Not Reportable Antibody Screen Not Reportable Crossmatch See Detail 03/30/21 11:40 WBC RBC Hgb Hct MCV MCH MCHC RDW Std Deviation RDW Coeff of Alisa Plt Count MPV Immature Gran % (Auto) Neut % (Auto) Lymph % (Auto) [place] % (Auto) Eos % (Auto) Baso % (Auto) Absolute Neuts (auto) Absolute Lymphs (auto) Nucleated RBC % Differential Comment Diff Path Review Anisocytosis PT INR APTT Sodium Potassium Chloride Carbon Dioxide Anion Gap BUN Creatinine Estim Creat Clear Calc Est GFR (MDRD) Af Amer Est GFR (MDRD) Non-Af BUN/Creatinine Ratio Glucose Calcium Hepatitis C Antibody Blood Type A POSITIVE Antibody Screen NEGATIVE Crossmatch Discharge Plan Dx/Rx/DC Orders Clinical Impression: Anemia, 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
[2021-03-30 11:59] LABS: Absolute Lymphocyte Count 241.35 X10^3/uL (0.83-4.51); Absolute Neutrophil Count 9.7 X10^3/uL (2.0-7.7); Basophil# 0.06 X10^3/uL; Eosinophil# 0.02 X10^3/uL; Hematocrit 23.8 % (40-54); Lymphocyte # 241.35 X10^3/ul (0.83-4.51); Mean Corp Hgb Conc 22.7 g/dL (32-36); Mean Corpuscular Hgb 30.9 pg (27.0-32.0); Mean Platelet Vol. 9.3 fl (6.2-12.0); Monocyte# 10.47 X10^3/uL; NRBC Flagged by Analyzer 0.3 % (0-5); Neutrophil % 3.7 % (47-70); POSITIVE COUNT YES; POSITIVE DIFFERENTIAL YES; POSITIVE MORPHOLOGY YES; Platelet Count 234 K/mm3 (150-450); RBC Distribution Width CV 22.5 % (11.6-14.6); Red Blood Count 1.75 M/mm3 (4.6-6.2)
[2021-03-30 12:02] LABS: RBC Distribution Width SD 106.2 fl (35.1-43.9)
[2021-03-30 12:03] LABS: Differential Indicated SCAN CRITERIA MET; Hemoglobin 5.4 g/dL (13.0-16.5); White Blood Count 262.4 K/mm3 (4.4-11.0)
[2021-03-30 12:05] LABS: Anion Gap 6 (5-15); BUN 28 mg/dL (7-18); BUN/Creat Ratio 33.3 RATIO (10-20); Chloride 105 mmol/L (98-107); Creatinine, Serum 0.84 mg/dL (0.70-1.30); EST Glomerular Filtration Rate 98 mL/min (>60); Est Glom Filt Rate - Afr Amer 119 mL/min (>60); Estimated Creatinine Clearance 110.51 ml/min; Glucose 94 mg/dL (74-106); Potassium 3.8 mmol/L (3.5-5.1); Sodium Level 141 mmol/L (136-145)
[2021-03-30 12:22] LABS: International Normalized Ratio 1.1; Prothrombin Time (Protime)PT. 13.1 SECONDS (11.7-14.9)
[2021-03-30 12:23] LABS: Partial Thromboplast Time 25.3 Seconds (24.1-36.2)
[2021-03-30 12:30] LABS: Anisocytosis 1+
--- NOTE | 2021-03-30 12:34 | HP.PCM.HOS_ITS ---
HPI - General HPI Narrative MARYCRUZ VARGAS, is a 61 M who presents with anemia. He has known h/o autoimmune hemolytic anemia. Had Hg that was 5.3. Directed to ED and had Hg that was 5.4. Dr. Gauthier was contacted and advised admission and transfusion with 4 units with goal Hg of 8. Pt was just discharged on 03/19 and was transfused 7 units that admission. Pt was discharged with 100mg of prednisone/daily. Oncology recommended continuing prednisone. Pt denies any bleeding. Said he felt wobbly upon standing, which is what he gets when he is anemic. 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 Bilateral lower extremity edema Chronic lymphocytic leukemia Edema, lower extremity History of hepatitis B Iron deficiency anemia due to chronic blood loss Home Medications amoxicillin-pot clavulanate 875 mg PO BIDCM 4 Days #7 tab 03/19/21 [Rx Last Taken Unknown] folic acid 1 mg PO BREAKFAST 30 Days #30 tab 03/19/21 [Rx Last Taken Unknown] furosemide 40 mg PO BID 30 Days #60 tab 03/19/21 [Rx Last Taken Unknown] pantoprazole 40 mg PO BID 30 Days #120 tab 03/19/21 [Rx Last Taken Unknown] prednisone 100 mg PO BREAKFAST 14 Days #70 tab 03/19/21 [Rx Last Taken Unknown] Allergy/AdvReac Type Severity Reaction Status Date / Time No Known Allergies Allergy Verified 03/30/21 11:22 Family History Father Diabetes Mother Hypertension Surgical History H/O foot surgery History of tonsillectomy Social History household members: none Smoking Status: Light Smoker (<10/day) second hand exposure: No alcohol intake: current alcohol intake frequency: holidays/special occasions only details: occasionally diet: low salt estelle/mandaeism: Restoration seatbelt use: always do you feel safe at home: Yes ROS ROS Narrative Head bruising on his arms from the last hospitalization. No medication, no melena, no hematuria. Lower extremity edema which comes and goes. All review of systems were negative except as mentioned above in the history of present illness and the other review of systems. Vital Signs Vital Signs Vital Signs: 03/30/21 11:20 03/30/21 11:50 Temperature 36.6 C Temperature Source Temporal Pulse Rate 75 Respiratory Rate 18 Respiratory Effort Normal Non-Labored Respiratory Pattern Normal Blood Pressure 122/60 H Blood Pressure Mean 80 Pulse Ox 100 Oxygen Delivery Method Room Air Weight Weight: 91.626 kg Body Mass Index (BMI) 24.5 Physical Exam Const alert and no apparent distress General Appearance: cooperative HEENT normocephalic and head/scalp atraumatic Resp normal respiratory effort, no retractions, no use of accessory muscles and clear to auscultation bilaterally Cardio regular rate, regular rhythm, S1 normal heart sound and S2 normal heart sound GI normal to inspection, nondistended, normoactive bowel sounds, soft to palpation, non-tender and non-distended Extremity normal to inspection Extremity Narrative: Bilateral lower extremity edema. Skin no rashes or lesions noted and no wounds Neuro Sensorium / Orientation: awake and alert Psych affect normal Results Lab / Micro Data Attestation: I reviewed the patient's lab results. Result Diagrams: 03/30/21 11:40 03/30/21 11:40 Labs: Laboratory Results - last 24 hr 03/30/21 11:40: WBC 262.4 H*, RBC 1.75 L, Hgb 5.4 L*, Hct 23.8 L, MCV 136.0 H, MCH 30.9, MCHC 22.7 L, RDW Std Deviation 106.2 H, RDW Coeff of Alisa 22.5 H, Plt Count 234, MPV 9.3, Immature Gran % (Auto) 0.300, Neut % (Auto) 3.7 L, Lymph % (Auto) 92.0 H, [place] % (Auto) 4.0, Eos % (Auto) 0.0, Baso % (Auto) 0.0, Absolute Neuts (auto) 9.7 H, Absolute Lymphs (auto) 241.35 H, Nucleated RBC % 0.3, Differential Comment , Diff Path Review May foll, Anisocytosis 1+ 03/30/21 11:40: PT 13.1, INR 1.1, APTT 25.3 03/30/21 11:40: Sodium 141, Potassium 3.8, Chloride 105, Carbon Dioxide 30.0, Anion Gap 6, BUN 28 H, Creatinine 0.84, Estim Creat Clear Calc 110.51, Est GFR (MDRD) Af Amer 119, Est GFR (MDRD) Non-Af 98, BUN/Creatinine Ratio 33.3 H, Glucose 94, Calcium 9.0 03/30/21 11:40: Blood Type Not Reportable, Antibody Screen Not Reportable 03/30/21 11:40: Blood Type A POSITIVE Micro: Microbiology 03/30/21 11:45 Nasal Secretion SARS-CoV-2 Antigen (Rapid) - Final Assessment & Plan Assessment/Plan (1) Anemia: QUALIFIERS: Anemia type: acquired or hereditary hemolytic anemia Hemolytic anemia type: acquired, autoimmune, 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 Acute hemolytic anemia * Advised by oncology to transfuse 4 units which is already been ordered by the emergency room. * Goal hemoglobin per oncology is 8 * Continue with prednisone * defer any additional testing to oncology 2. CLL * Management per oncology 3. Lower extremity edema * Echocardiogram on the showed EF 60%, mildly enlarged left atrium, trivial pericardial effusion but no evidence of cardiac tamponade. RV systolic pressure unable to be evaluated. * Continue with furosemide 4. VTE prophylaxis with SCDs. 5. CODE STATUS: Addressed with the patient. Patient wishes to be full CODE STATUS. Charges/Coding Visit Charges Inpatient E&M: 04123 Init Hosp L3
--- NOTE | 2021-03-30 13:19 | NURSING ---
PANDEMIC DOCUMENTATION
[2021-03-30 15:00] LABS: Hepatitis C Antibody Non-Reactive (Nonreactive)
[2021-03-30] MEDS: Furosemide 40 MG Tablet PO (16:17)
--- NOTE | 2021-03-30 19:31 | CON.PCM.ON_ITS ---
Assessment & Plan Assessment/Plan (1) Anemia: Status: Acute Code(s): D64.9 - Anemia, unspecified Qualifiers: Anemia type: acquired or hereditary hemolytic anemia Hemolytic anemia type: acquired, autoimmune, drug-induced Qualified Code(s): D59.0 - Drug- induced autoimmune hemolytic anemia Plan: Suggest continuation of Prednisone 100mg daily with supportive PRBC transfusion to keep Hgb above 7. IVIG can be added if needed. Will follow with further suggestions based on clinical condition. (2) Chronic lymphocytic leukemia: Status: Chronic Code(s): C91.10 - Chronic lymphocytic leukemia of B-cell type not having achieved remission Plan: Pt has hepatitis B serology, repeat work up is pending. The result will help determine therapy. HPI Consult Data Date of Service:: 03/30/21 PCP / Referring Provider: Dr. Marlon Michaud MD Attending: Dr. John Garner DO Chief Complaint Chief Complaint: Asked to see Pt for AIHA. History of Present Illness History of Present Illness: 61 year old man presented to [facility] ED on 03/15/21 with c/o dyspnea. Found to have WBC count of 225.2, lymphocytosis 205.55 suggestive of CLL, Hgb 3.6 but preserved platelets and ANC. He was subsequently admitted for management of acute severe anemia. He was found to have AIHA associated with CLL, peripheral blood flow cytometry consistent with B-cell CLL. He was transfused with a total of 4 units of packed red blood cells and started on prednisone 1 mg/kg daily-100mg daily. He was readmitted today with severe hemolytic anemia-Hgb 5.4 for blood transfusion to keep Hgb above 7. He is getting PRBC on the floor now. 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 Bilateral lower extremity edema Chronic lymphocytic leukemia Edema, lower extremity History of hepatitis B Iron deficiency anemia due to chronic blood loss Home Medications folic acid 1 mg PO BREAKFAST 30 Days #30 tab 03/19/21 [Rx Last Taken 03/30/21] furosemide 40 mg PO BID 30 Days #60 tab 03/19/21 [Rx Last Taken 03/29/21] pantoprazole 40 mg PO BID 30 Days #120 tab 03/19/21 [Rx Last Taken 03/30/21] prednisone 100 mg PO BREAKFAST 14 Days #70 tab 03/19/21 [Rx Last Taken 03/30/21] Allergy/AdvReac Type Severity Reaction Status Date / Time No Known Allergies Allergy Verified 03/30/21 11:22 Family History Father Diabetes Mother Hypertension Surgical History H/O foot surgery History of tonsillectomy Social History household members: none Smoking Status: Light Smoker (<10/day) second hand exposure: No alcohol intake: current alcohol intake frequency: holidays/special occasions only details: occasionally diet: low salt estelle/hindu: Mandaen seatbelt use: always do you feel safe at home: Yes ROS Constitutional Constitutional: Reports fatigue; Denies chills or fever(s) ENT HEENT: Denies dysphagia Cardiovascular Cardiovascular: Denies chest pain or clubbing Respiratory/Chest Respiratory/Chest: Denies chest tightness Gastrointestinal Gastrointestinal: Denies abdominal pain Genitourinary Genitourinary: Denies change in urinary stream Musculoskeletal Musculoskeletal: Denies abnormal gait Integumentary Integumentary: Denies erythema, jaundice, nail changes, new lesions, pruritus, rash or unusual bruising Neurologic Neurologic: Denies abnormal speech Psychiatric Psychiatric: Denies anxiety or depression Endocrine Endocrinology: Denies cold intolerance or flushing Hematologic/Lymphatic Hematologic/Lymphatic: Denies easy bleeding or easy bruising Physical Exam Const alert and oriented x3 Orientation / Consciousness: oriented to person HEENT normocephalic Eyes PERRL Neck no lymphadenopathy and supple Lymph Lymphatic: no lymphadenopathy noted Chest inspection of chest normal Resp normal respiratory effort Effort and Inspection: able to speak in complete sentences and symmetric chest movement Cardio regular rate, regular rhythm, S1 normal heart sound, S2 normal heart sound and no murmurs GI normal to inspection, nondistended, normoactive bowel sounds Extremity normal to inspection and no clubbing, cyanosis or edema Skin no rashes or lesions noted Neuro CN's II-XII intact bilaterally, no focal motor deficits and no sensory deficits noted Psych mental status grossly normal Vital Signs Temperature 98.2 F 03/30/21 19:04 Temperature Source Oral 03/30/21 19:04 Pulse Rate 81 03/30/21 19:04 Respiratory Rate 16 03/30/21 19:04 Respiratory Effort Non-Labored 03/30/21 11:50 Respiratory Pattern Normal 03/30/21 11:50 Blood Pressure 133/56 H 03/30/21 19:04 Blood Pressure Mean 81 03/30/21 19:04 Blood Pressure Source Monitor 03/30/21 19:04 Blood Pressure Position Semi-Fowlers 03/30/21 19:04 Blood Pressure Location Right Arm 03/30/21 19:04 Pulse Ox 99 03/30/21 19:04 Oxygen Delivery Method Room Air 03/30/21 19:04 Laboratory Results - last 24 hr 03/30/21 10:55: Hepatitis C Antibody Non-Reactive 03/30/21 11:40: WBC 262.4 H*, RBC 1.75 L, Hgb 5.4 L*, Hct 23.8 L, MCV 136.0 H, MCH 30.9, MCHC 22.7 L, RDW Std Deviation 106.2 H, RDW Coeff of Alisa 22.5 H, Plt Count 234, MPV 9.3, Immature Gran % (Auto) 0.300, Neut % (Auto) 3.7 L, Lymph % (Auto) 92.0 H, [place] % (Auto) 4.0, Eos % (Auto) 0.0, Baso % (Auto) 0.0, Absolute Neuts (auto) 9.7 H, Absolute Lymphs (auto) 241.35 H, Nucleated RBC % 0.3, Differential Comment , Diff Path Review May foll, Anisocytosis 1+ 03/30/21 11:40: PT 13.1, INR 1.1, APTT 25.3 03/30/21 11:40: Sodium 141, Potassium 3.8, Chloride 105, Carbon Dioxide 30.0, Anion Gap 6, BUN 28 H, Creatinine 0.84, Estim Creat Clear Calc 110.51, Est GFR (MDRD) Af Amer 119, Est GFR (MDRD) Non-Af 98, BUN/Creatinine Ratio 33.3 H, Glucose 94, Calcium 9.0 03/30/21 11:40: Blood Type Not Reportable, Antibody Screen Not Reportable 03/30/21 11:40: Crossmatch See Detail 03/30/21 11:40: Blood Type A POSITIVE, Antibody Screen NEGATIVE Microbiology 03/30/21 11:45 Nasal Secretion SARS-CoV-2 Antigen (Rapid) - Final Charges/Coding Visit Charges Office Visits / Consults: 22597 IP Consult L4
[2021-03-30] MEDS: Pantoprazole Sodium 40 MG Tablet PO (22:00)
[2021-03-30] MEDS: Acetaminophen 325 MG Tablet 650 MG PO (22:00)
[2021-03-30 23:44] LABS: Hematocrit 21.5 % (40-54); POSITIVE COUNT YES
[2021-03-31] VITALS (18 sets, daily range): BP systolic 114–167; BP diastolic 58–80; PULSE 18–103; RESP 16–18; TEMP 35.9–36.9; O2SAT 18–100
[2021-03-31] MEDS: 0.9% Saline Lock 10 ML Syringe IV ×2 (00:48→21:58)
[2021-03-31 03:54] LABS: Absolute Lymphocyte Count 192.28 X10^3/uL (0.83-4.51); Absolute Neutrophil Count 5.5 X10^3/uL (2.0-7.7); Basophil# 0.02 X10^3/uL; Hematocrit 23.4 % (40-54); Lymphocyte # 192.28 X10^3/ul (0.83-4.51); Lymphocyte % 93.8 % (19-41); Mean Corp Hgb Conc 25.2 g/dL (32-36); Mean Corpuscular Hgb 30.9 pg (27.0-32.0); Mean Corpuscular Volume 122.5 fL (80-94); Mean Platelet Vol. 8.9 fl (6.2-12.0); Monocyte# 6.84 X10^3/uL; Monocyte% 3.3 % (0-10); NRBC Flagged by Analyzer 0.4 % (0-5); Neutrophil # 5.49 X10^3/uL (2.7-7.7); Neutrophil % 2.7 % (47-70); POSITIVE COUNT YES; POSITIVE DIFFERENTIAL YES; POSITIVE MORPHOLOGY YES; Platelet Count 166 K/mm3 (150-450); Red Blood Count 1.91 M/mm3 (4.6-6.2)
[2021-03-31 04:02] LABS: Differential Indicated SCAN CRITERIA MET; Hemoglobin 5.9 g/dL (13.0-16.5); White Blood Count 205.1 K/mm3 (4.4-11.0)
[2021-03-31 04:09] LABS: Anisocytosis 2+; Differential Comment SCANNED; Hypochromasia 1+; Macrocytosis 2+; Polychromasia 1+
[2021-03-31 04:16] LABS: ALB/GLOB Ratio 0.9 RATIO (0.9-2.4); AST(SGOT) 13 U/L (15-37); Alanine Aminotransfer ALT/SGPT 22 U/L (16-61); Albumin, Serum 2.8 g/dL (3.2-5.0); Alkaline Phosphatase 69 U/L (45-117); Anion Gap 6 (5-15); BUN 26 mg/dL (7-18); BUN/Creat Ratio 40.2 RATIO (10-20); Calcium,Total 8.3 mg/dL (8.5-10.1); Chloride 105 mmol/L (98-107); Creatinine, Serum 0.65 mg/dL (0.70-1.30); EST Glomerular Filtration Rate 133 mL/min (>60); Est Glom Filt Rate - Afr Amer 161 mL/min (>60); Estimated Creatinine Clearance 142.81 ml/min; Glucose 93 mg/dL (74-106); Potassium 3.6 mmol/L (3.5-5.1); Protein, Total 5.8 g/dL (6.4-8.2); Sodium Level 141 mmol/L (136-145)
[2021-03-31 07:50] LABS: Hematocrit 26.5 % (40-54); Hemoglobin 6.8 g/dL (13.0-16.5)
[2021-03-31] MEDS: Folic Acid 1 MG Tablet PO (10:22)
[2021-03-31] MEDS: predniSONE 20 MG Tablet 100 MG PO (10:22)
[2021-03-31] MEDS: Pantoprazole Sodium 40 MG Tablet PO ×2 (10:23→21:58)
[2021-03-31] MEDS: Furosemide 40 MG Tablet PO ×2 (10:23→17:47)
--- NOTE | 2021-03-31 12:31 | CASEMGMT ---
RN CM readmission note: Prior admission: Admitted 03/15/21 w/symptomatic anemia. Hgb on admit 3.6. Received 6-7 units PRBC's during admission. Hgb @ d/c 8.4. Pt has dx of: CLL and autoimmune hemolytic anemia. Pt followed throughout admission by hematology/oncology and to f/u with them as Out-pt. Discharged home 03/19/21 on prednisone, folic acid, PPI, Lasix and Augmentin. Palliative referral was made during this admission, but pt declined. Current admission: Admitted 03/30/21 w/ anemia. Hgb on admit 5.4. BASHIR CM to room to talk w/pt. Pt resting in bed. Awake/alert/oriented. Pt states he has been staying @ his parent's home (they are ) in [place] since discharge, as there are no stairs in that home and his brother lives nearby and able to help. Brother gets his groceries and provides transportation. Pt's current address is: [address] [place] [address], [place] [address]. Pt states plans to return to his home in [place], once he is stronger and able to ambulate stairs, as his home in [place] is a 2-story. Pt states he was able to get his prescriptions @ d/c after last admission w/out difficulty and has been taking them as prescribed. He has not had any appts w/PCP, Dr Michaud, but has seen Dr Mccabe, oncology, since last admission. Last appt w/Dr Mccabe was yesterday 03/30, who then sent him to [facility] ED, and then pt admitted. Pt denies need for HHC. Discussed Palliative Care w/pt, as they had met with him last admission and he declined at that time. Pt declines again, stating he is not interested at this time. Pt denies need/concerns w/returning to his parents home in [place] @ d/c. Pt instructed to ask for CM if any needs/questions/concerns arise. Paulina PORTILLON RN CM
--- NOTE | 2021-03-31 12:56 | PN.HOSP_ITS ---
Subjective Subjective No events overnight. Objective Data Objective Data Vital Signs: Vital Signs Temp Pulse Resp BP Pulse Ox 36.7 C 82 18 151/58 H 97 03/31/21 12:00 03/31/21 12:00 03/31/21 12:00 03/31/21 12:00 03/31/21 12:00 Oxygen Delivery Method Room Air Weight: 93.6 kg Body Mass Index (BMI) 25.1 Intake & Output: Intake and Output for Last 24 Hours 03/29/21 03/30/21 03/31/21 23:59 23:59 23:59 Intake Total 400 / 400 800 / 800 Balance 400 / 400 800 / 800 Lab / Micro Data Result Diagrams: 03/31/21 07:40 03/31/21 03:44 Labs: Laboratory Results - last 24 hr 03/30/21 10:55: Hepatitis C Antibody Non-Reactive 03/30/21 11:40: Crossmatch See Detail 03/30/21 11:40: Antibody Screen NEGATIVE 03/30/21 11:40: Crossmatch See Detail 03/30/21 23:37: Hgb 5.2 L*, Hct 21.5 L 03/31/21 03:44: WBC 205.1 H*, RBC 1.91 L, Hgb 5.9 L*, Hct 23.4 L, MCV 122.5 H D, MCH 30.9, MCHC 25.2 L D, RDW Std Deviation TNP, RDW Coeff of Alisa TNP, Plt Count 166, MPV 8.9, Immature Gran % (Auto) 0.200, Neut % (Auto) 2.7 L, Lymph % (Auto) 93.8 H, [place] % (Auto) 3.3, Eos % (Auto) 0.0, Baso % (Auto) 0.0, Absolute Neuts (auto) 5.5, Absolute Lymphs (auto) 192.28 H, Nucleated RBC % 0.4, Differential Comment SCANNED, Diff Path Review May foll, Polychromasia 1+, Hypochromasia 1+, Anisocytosis 2+, Macrocytosis 2+ 03/31/21 03:44: Sodium 141, Potassium 3.6, Chloride 105, Carbon Dioxide 30.0, Anion Gap 6, BUN 26 H, Creatinine 0.65 L, Estim Creat Clear Calc 142.81, Est GFR (MDRD) Af Amer 161, Est GFR (MDRD) Non-Af 133, BUN/Creatinine Ratio 40.2 H, Glucose 93, Calcium 8.3 L, Total Bilirubin 1.80 H, AST 13 L, ALT 22, Alkaline Phosphatase 69, Total Protein 5.8 L, Albumin 2.8 L, Globulin 3.0, [place] min/Globulin Ratio 0.9 03/31/21 07:40: Hgb 6.8 L, Hct 26.5 L Micro: Microbiology 03/30/21 11:45 Nasal Secretion SARS-CoV-2 Antigen (Rapid) - Final Physical Exam Const alert and no apparent distress Resp normal respiratory effort, no retractions, no use of accessory muscles and clear to auscultation bilaterally Cardio regular rate, regular rhythm, S1 normal heart sound and S2 normal heart sound GI normal to inspection, nondistended, normoactive bowel sounds, soft to palpation, non-tender and non-distended Extremity normal to inspection General Extremity: edema Assessment & Plan Assessment/Plan (1) Anemia: QUALIFIERS: Anemia type: acquired or hereditary hemolytic anemia Hemolytic anemia type: acquired, autoimmune, 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 Acute hemolytic anemia * Advised by oncology to transfuse 4 units which is already been ordered by the emergency room. * Goal hemoglobin per oncology is 7 * Continue with prednisone * DW Dr. Davey, recommends 5 days of IVIG (3 at least inpatient) 2. CLL * Management per oncology 3. Lower extremity edema * Echocardiogram on the showed EF 60%, mildly enlarged left atrium, trivial pericardial effusion but no evidence of cardiac tamponade. RV systolic pressure unable to be evaluated. * Continue with furosemide 4. VTE prophylaxis with SCDs. 5. CODE STATUS: Addressed with the patient. Patient wishes to be full CODE STA TUS. Charges/Coding Visit Charges Inpatient E&M: 76996 Subs Hosp L2
[2021-03-31 13:45] LABS: Absolute Lymphocyte Count 199.16 X10^3/uL (0.83-4.51); Absolute Neutrophil Count 5.8 X10^3/uL (2.0-7.7); Basophil# 0.17 X10^3/uL; Basophil% 0.1 % (0-1); Eosinophil# 0.03 X10^3/uL; Hemoglobin 7.3 g/dL (13.0-16.5); Lymphocyte # 199.16 X10^3/ul (0.83-4.51); Lymphocyte % 94.2 % (19-41); Mean Corp Hgb Conc 26.1 g/dL (32-36); Mean Corpuscular Hgb 29.9 pg (27.0-32.0); Mean Corpuscular Volume 114.8 fL (80-94); Monocyte# 5.75 X10^3/uL; Monocyte% 2.7 % (0-10); NRBC Flagged by Analyzer 0.4 % (0-5); Neutrophil # 5.84 X10^3/uL (2.7-7.7); Neutrophil % 2.8 % (47-70); POSITIVE COUNT YES; POSITIVE DIFFERENTIAL YES; POSITIVE MORPHOLOGY YES; Platelet Count 165 K/mm3 (150-450); RBC Distribution Width CV 31.2 % (11.6-14.6); Red Blood Count 2.44 M/mm3 (4.6-6.2)
[2021-03-31 13:52] LABS: RBC Distribution Width SD 114.2 fl (35.1-43.9)
[2021-03-31 13:53] LABS: Pathologist Review Reviewed
[2021-03-31 13:55] LABS: Differential Indicated SCAN CRITERIA MET; White Blood Count 211.4 K/mm3 (4.4-11.0)
[2021-03-31 14:13] LABS: Differential Comment SCANNED
[2021-03-31] MEDS: Immune Globulin 5 GM Premixed Solution 0.5 BAG IV (15:49)
[2021-03-31 15:56] LABS: Hematocrit 31.4 % (40-54); Hemoglobin 8.3 g/dL (13.0-16.5)
[2021-03-31] MEDS: Immune Globulin 10 gm Premixed Solution 1 BAG IV (16:47)
[2021-03-31] MEDS: Immune Globulin 20 gm Premixed Solution 2 BAG IV (17:46)
[2021-04-01] VITALS (12 sets, daily range): BP systolic 131–165; BP diastolic 67–83; PULSE 62–89; RESP 16–18; TEMP 36.2–36.7; O2SAT 97–100
[2021-04-01 06:18] LABS: Hematocrit 26.4 % (40-54); Mean Corp Hgb Conc 26.5 g/dL (32-36); Mean Corpuscular Hgb 30.4 pg (27.0-32.0); Mean Corpuscular Volume 114.8 fL (80-94); Mean Platelet Vol. 9.1 fl (6.2-12.0); POSITIVE COUNT YES; POSITIVE MORPHOLOGY YES; Platelet Count 169 K/mm3 (150-450); RBC Distribution Width CV 29.9 % (11.6-14.6)
[2021-04-01 06:20] LABS: RBC Distribution Width SD 112.6 fl (35.1-43.9); White Blood Count 175.9 K/mm3 (4.4-11.0)
[2021-04-01 06:21] LABS: Scan Indicated on CBC? Y/N YES- FLAGS NOTED
[2021-04-01 06:39] LABS: ALB/GLOB Ratio 0.7 RATIO (0.9-2.4); AST(SGOT) 17 U/L (15-37); Alanine Aminotransfer ALT/SGPT 19 U/L (16-61); Albumin, Serum 2.5 g/dL (3.2-5.0); Alkaline Phosphatase 68 U/L (45-117); Anion Gap 9 (5-15); BUN 15 mg/dL (7-18); BUN/Creat Ratio 22.4 RATIO (10-20); Calcium,Total 7.5 mg/dL (8.5-10.1); Chloride 103 mmol/L (98-107); Creatinine, Serum 0.67 mg/dL (0.70-1.30); EST Glomerular Filtration Rate 127 mL/min (>60); Est Glom Filt Rate - Afr Amer 154 mL/min (>60); Estimated Creatinine Clearance 138.55 ml/min; Globulin 3.7 g/dL (2.2-4.2); Glucose 87 mg/dL (74-106); Potassium 4.1 mmol/L (3.5-5.1); Protein, Total 6.2 g/dL (6.4-8.2); Sodium Level 138 mmol/L (136-145)
[2021-04-01 06:41] LABS: Differential Comment SCANNED
[2021-04-01] MEDS: Furosemide 40 MG Tablet PO ×2 (08:15→18:46)
[2021-04-01] MEDS: predniSONE 20 MG Tablet 100 MG PO (08:15)
[2021-04-01] MEDS: Folic Acid 1 MG Tablet PO (08:15)
[2021-04-01] MEDS: Pantoprazole Sodium 40 MG Tablet PO ×2 (08:16→21:38)
[2021-04-01 13:15] LABS: Pathologist Review Reviewed
[2021-04-01 13:16] LABS: Pathologist Review Reviewed
[2021-04-01] MEDS: Immune Globulin 5 GM Premixed Solution 0.5 BAG IV (13:20)
[2021-04-01] MEDS: Acetaminophen 325 MG Tablet 650 MG PO (13:23)
[2021-04-01 13:28] LABS: Hemoglobin 5.2 g/dL (13.0-16.5)
[2021-04-01 13:34] LABS: Pathologist Review Reviewed
[2021-04-01] MEDS: Immune Globulin 10 gm Premixed Solution 1 BAG IV (14:09)
--- NOTE | 2021-04-01 14:41 | PN.HOSP_ITS ---
Subjective Subjective No events. Feels well. Decreased LE edema. Objective Data Objective Data Vital Signs: Vital Signs Temp Pulse Resp BP Pulse Ox 36.6 C 65 16 153/78 H 100 04/01/21 14:34 04/01/21 14:34 04/01/21 14:34 04/01/21 14:34 04/01/21 14:34 Oxygen Delivery Method Room Air Weight: 93.6 kg Body Mass Index (BMI) 25.1 Intake & Output: Intake and Output for Last 24 Hours 03/30/21 03/31/21 04/01/21 23:59 23:59 23:59 Intake Total 400 / 400 2310 / 2310 200.75 / 200.75 Output Total 550 / 550 Balance 400 / 400 1760 / 1760 200.75 / 200.75 Lab / Micro Data Result Diagrams: 04/01/21 06:00 04/01/21 06:00 Labs: Laboratory Results - last 24 hr 03/30/21 11:40: Crossmatch See Detail 03/30/21 23:37: Hgb 5.2 L* 03/31/21 03:44: Diff Path Review Reviewed 03/31/21 13:35: Diff Path Review Reviewed 03/31/21 15:31: Hgb 8.3 L, Hct 31.4 L 04/01/21 06:00: WBC 175.9 H*, RBC 2.30 L, Hgb 7.0 L, Hct 26.4 L, MCV 114.8 H, MCH 30.4, MCHC 26.5 L, RDW Std Deviation 112.6 H, RDW Coeff of Alisa 29.9 H, Plt Count 169, MPV 9.1, Differential Comment SCANNED, Diff Path Review Reviewed 04/01/21 06:00: Sodium 138, Potassium 4.1, Chloride 103, Carbon Dioxide 26.0, Anion Gap 9, BUN 15, Creatinine 0.67 L, Estim Creat Clear Calc 138.55, Est GFR ( MDRD) Af Amer 154, Est GFR (MDRD) Non-Af 127, BUN/Creatinine Ratio 22.4 H, Gl ucose 87, Calcium 7.5 L, Total Bilirubin 1.30 H, AST 17, ALT 19, Alkaline Phosphatase 68, Total Protein 6.2 L, Albumin 2.5 L, Globulin 3.7, Albumin/Globulin Ratio 0.7 L Micro: Microbiology 03/30/21 11:45 Nasal Secretion SARS-CoV-2 Antigen (Rapid) - Final Physical Exam Const alert Resp normal respiratory effort, no retractions, no use of accessory muscles and clear to auscultation bilaterally Cardio regular rate, regular rhythm, S1 normal heart sound and S2 normal heart sound GI normal to inspection, nondistended, normoactive bowel sounds, soft to palpation, non-tender and non-distended Extremity normal to inspection and full ROM Neuro Sensorium / Orientation: awake and alert Assessment & Plan Assessment/Plan (1) Anemia: QUALIFIERS: Anemia type: acquired or hereditary hemolytic anemia Hemolytic anemia type: acquired, autoimmune, 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 Acute hemolytic anemia * S/P 5 units * Goal hemoglobin per oncology is 7 * Continue with prednisone * DW Dr. Davey, recommends 5 days of IVIG (3 at least inpatient) 2. CLL * Management per oncology 3. Lower extremity edema * Echocardiogram on the showed EF 60%, mildly enlarged left atrium, trivial pericardial effusion but no evidence of cardiac tamponade. RV systolic pressure unable to be evaluated. * Continue with furosemide * currently improved 4. VTE prophylaxis with SCDs. 5. CODE STATUS: Addressed with the patient. Patient wishes to be full CODE STATUS. Charges/Coding Visit Charges Inpatient E&M: 70874 Subs Hosp L2
[2021-04-01] MEDS: Immune Globulin 20 gm Premixed Solution 2 BAG IV (15:06)
[2021-04-01] MEDS: 0.9% Saline Lock 10 ML Syringe IV (16:19)
[2021-04-02] VITALS (10 sets, daily range): BP systolic 143–161; BP diastolic 73–90; PULSE 61–75; RESP 16–18; TEMP 36.5–36.8; O2SAT 98–100
[2021-04-02 06:50] LABS: Absolute Lymphocyte Count 128.72 X10^3/uL (0.83-4.51); Absolute Neutrophil Count 3.7 X10^3/uL (2.0-7.7); Basophil% 0.1 % (0-1); Hematocrit 28.3 % (40-54); Hemoglobin 7.8 g/dL (13.0-16.5); Lymphocyte # 128.72 X10^3/ul (0.83-4.51); Lymphocyte % 93.6 % (19-41); Mean Corp Hgb Conc 27.6 g/dL (32-36); Mean Corpuscular Hgb 31.1 pg (27.0-32.0); Mean Corpuscular Volume 112.7 fL (80-94); Monocyte# 4.81 X10^3/uL; Monocyte% 3.5 % (0-10); NRBC Flagged by Analyzer 0.1 % (0-5); Neutrophil # 3.73 X10^3/uL (2.7-7.7); Neutrophil % 2.7 % (47-70); POSITIVE COUNT YES; POSITIVE DIFFERENTIAL YES; POSITIVE MORPHOLOGY YES; Platelet Count 120 K/mm3 (150-450); RBC Distribution Width CV 26.4 % (11.6-14.6); Red Blood Count 2.51 M/mm3 (4.6-6.2)
[2021-04-02 06:52] LABS: Differential Indicated SCAN CRITERIA MET; RBC Distribution Width SD 100.5 fl (35.1-43.9); White Blood Count 137.5 K/mm3 (4.4-11.0)
[2021-04-02 10:24] LABS: Differential Comment SCANNED
[2021-04-02] MEDS: predniSONE 20 MG Tablet 100 MG PO (10:24)
[2021-04-02] MEDS: Folic Acid 1 MG Tablet PO (10:24)
[2021-04-02] MEDS: Furosemide 40 MG Tablet PO ×2 (10:25→17:59)
[2021-04-02] MEDS: Pantoprazole Sodium 40 MG Tablet PO ×2 (11:29→21:11)
--- NOTE | 2021-04-02 12:40 | PN.HOSP_ITS ---
Subjective Subjective Feels fine. No events overnight. Objective Data Objective Data Vital Signs: Vital Signs Temp Pulse Resp BP Pulse Ox 36.6 C 61 16 150/80 H 100 04/02/21 10:30 04/02/21 10:30 04/02/21 10:30 04/02/21 10:30 04/02/21 10:30 Oxygen Delivery Method Room Air Weight: 93.6 kg Body Mass Index (BMI) 25.1 Intake & Output: Intake and Output for Last 24 Hours 03/31/21 04/01/21 04/02/21 23:59 23:59 23:59 Intake Total 2310 / 2310 2070.75 / 2069.75 Output Total 550 / 550 Balance 1760 / 1760 0.75 / 2069.75 Lab / Micro Data Result Diagrams: 04/02/21 06:35 04/01/21 06:00 Labs: Laboratory Results - last 24 hr 03/30/21 23:37: Hgb 5.2 L* 03/31/21 03:44: Diff Path Review Reviewed 03/31/21 13:35: Diff Path Review Reviewed 04/01/21 06:00: Diff Path Review Reviewed 04/02/21 06:35: WBC 137.5 H*, RBC 2.51 L, Hgb 7.8 L, Hct 28.3 L, MCV 112.7 H, MCH 31.1, MCHC 27.6 L, RDW Std Deviation 100.5 H, RDW Coeff of Alisa 26.4 H, Plt Count 120 L, MPV 9.0, Immature Gran % (Auto) 0.100, Neut % (Auto) 2.7 L, Lymph % (Auto) 93.6 H, [place] % (Auto) 3.5, Eos % (Auto) 0.0, Baso % (Auto) 0.1, Absolute Neuts (auto) 3.7, Absolute Lymphs (auto) 128.72 H, Nucleated RBC % 0.1, Differential Comment SCANNED, Diff Path Review May foll Micro: Microbiology 03/30/21 11:45 Nasal Secretion SARS-CoV-2 Antigen (Rapid) - Final Physical Exam Const alert Resp normal respiratory effort, no retractions, no use of accessory muscles and clear to auscultation bilaterally Cardio regular rate, regular rhythm, S1 normal heart sound and S2 normal heart sound GI normal to inspection, nondistended, normoactive bowel sounds, soft to palpation, non-tender and non-distended Extremity normal to inspection Neuro Sensorium / Orientation: awake and alert Assessment & Plan Assessment/Plan (1) Anemia: QUALIFIERS: Anemia type: acquired or hereditary hemolytic anemia Hemolytic anemia type: acquired, autoimmune, 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 Acute hemolytic anemia * S/P 5 units * Goal hemoglobin per oncology is 7 * Continue with prednisone * DW Dr. Davey, recommends 5 days of IVIG to be completed 04/04 2. CLL * Management per oncology 3. Lower extremity edema * Echocardiogram on the showed EF 60%, mildly enlarged left atrium, trivial pericardial effusion but no evidence of cardiac tamponade. RV systolic pressure unable to be evaluated. * Continue with furosemide * currently improved 4. VTE prophylaxis with SCDs. 5. CODE STATUS: Addressed with the patient. Patient wishes to be full CODE S TATUS. 6. Disposition: * Plan is to have the patient complete his 5-day course of IVIG. He'll have that completed on the fourth. If his hemoglobin remains stable then he can likely be discharged that day however if he is still requiring ongoing transfusions he may need to stay longer. Charges/Coding Visit Charges Inpatient E&M: 45006 Subs Hosp L2
[2021-04-02] MEDS: Immune Globulin 20 gm Premixed Solution 46.5 BAG IV (15:29)
[2021-04-02] MEDS: 0.9% Saline Lock 10 ML Syringe IV ×2 (15:33→18:13)
[2021-04-02] MEDS: Immune Globulin 10 gm Premixed Solution 2 BAG IV (17:19)
[2021-04-02] MEDS: Immune Globulin 5 GM Premixed Solution 279 BAG IV (18:06)
[2021-04-03] VITALS (13 sets, daily range): BP systolic 145–162; BP diastolic 67–85; PULSE 59–74; RESP 16–20; TEMP 36.2–36.7; O2SAT 96–98
[2021-04-03 05:42] LABS: Absolute Lymphocyte Count 102.43 X10^3/uL (0.83-4.51); Absolute Neutrophil Count 3.1 X10^3/uL (2.0-7.7); Basophil# 0.04 X10^3/uL; Eosinophil# 0.01 X10^3/uL; Hematocrit 28.9 % (40-54); Hemoglobin 7.9 g/dL (13.0-16.5); Lymphocyte # 102.43 X10^3/ul (0.83-4.51); Mean Corp Hgb Conc 27.3 g/dL (32-36); Mean Corpuscular Hgb 31.1 pg (27.0-32.0); Mean Corpuscular Volume 113.8 fL (80-94); Mean Platelet Vol. 9.5 fl (6.2-12.0); Monocyte# 3.25 X10^3/uL; NRBC Flagged by Analyzer 0.1 % (0-5); Neutrophil % 2.9 % (47-70); POSITIVE COUNT YES; POSITIVE DIFFERENTIAL YES; POSITIVE MORPHOLOGY YES; Platelet Count 89 K/mm3 (150-450); RBC Distribution Width CV 23.9 % (11.6-14.6); RBC Distribution Width SD 95.1 fl (35.1-43.9); Red Blood Count 2.54 M/mm3 (4.6-6.2)
[2021-04-03 05:44] LABS: Differential Indicated SCAN CRITERIA MET
[2021-04-03 06:33] LABS: Differential Comment SCANNED
[2021-04-03 06:34] LABS: Anisocytosis 2+; Macrocytosis 2+; Platelet Estimate SLT DEC (ADEQ)
[2021-04-03] MEDS: Folic Acid 1 MG Tablet PO (08:41)
[2021-04-03] MEDS: predniSONE 20 MG Tablet 100 MG PO (08:41)
[2021-04-03] MEDS: Immune Globulin 5 GM Premixed Solution 46.5 BAG IV (10:56)
[2021-04-03] MEDS: Furosemide 40 MG Tablet PO ×2 (11:01→18:40)
[2021-04-03] MEDS: Pantoprazole Sodium 40 MG Tablet PO ×2 (11:02→20:50)
[2021-04-03] MEDS: Immune Globulin 10 gm Premixed Solution 93 BAG IV (11:48)
--- NOTE | 2021-04-03 12:20 | PN.HOSP_ITS ---
Subjective Subjective Feels well. No events. Objective Data Objective Data Vital Signs: Vital Signs Temp Pulse Resp BP Pulse Ox 36.3 C L 69 18 152/73 H 97 04/03/21 11:59 04/03/21 11:59 04/03/21 11:59 04/03/21 11:59 04/03/21 11:59 Oxygen Delivery Method Room Air Weight: 93.6 kg Body Mass Index (BMI) 25.1 Intake & Output: Intake and Output for Last 24 Hours 04/01/21 04/02/21 04/03/21 23:59 23:59 23:59 Intake Total 0.75 / 2069.75 350.00 / 350.00 639.52 / 639.52 Balance 2070.75 / 0.75 350.00 / 350.00 639.52 / 639.52 Lab / Micro Data Result Diagrams: 04/03/21 05:20 04/01/21 06:00 Labs: Laboratory Results - last 24 hr 04/03/21 05:20: WBC 109.0 H*, RBC 2.54 L, Hgb 7.9 L, Hct 28.9 L, MCV 113.8 H, MCH 31.1, MCHC 27.3 L, RDW Std Deviation 95.1 H, RDW Coeff of Alisa 23.9 H, Plt Count 89 L, MPV 9.5, Immature Gran % (Auto) 0.100, Neut % (Auto) 2.9 L, Lymph % (Auto) 94.0 H, [place] % (Auto) 3.0, Eos % (Auto) 0.0, Baso % (Auto) 0.0, Absolute Neuts (auto) 3.1, Absolute Lymphs (auto) 102.43 H, Nucleated RBC % 0.1, Differential Comment SCANNED, Diff Path Review May foll, Platelet Estimate SLT DEC, Anisocytosis 2+, Macrocytosis 2+ Micro: Microbiology 03/30/21 11:45 Nasal Secretion SARS-CoV-2 Antigen (Rapid) - Final Physical Exam Const alert Resp normal respiratory effort, no retractions, no use of accessory muscles and clear to auscultation bilaterally Cardio regular rate, regular rhythm, S1 normal heart sound and S2 normal heart sound GI normal to inspection, nondistended, normoactive bowel sounds, soft to palpation, non-tender and non-distended Assessment & Plan Assessment/Plan (1) Anemia: QUALIFIERS: Anemia type: acquired or hereditary hemolytic anemia Hemolytic anemia type: acquired, autoimmune, 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 Acute hemolytic anemia * S/P 5 units * Goal hemoglobin per oncology is 7. Currently stable * Continue with prednisone * DW Dr. Davey, recommends 5 days of IVIG to be completed 04/04 2. CLL * Management per oncology 3. Lower extremity edema * Echocardiogram on the showed EF 60%, mildly enlarged left atrium, trivial pericardial effusion but no evidence of cardiac tamponade. RV systolic pressure unable to be evaluated. * Continue with furosemide * currently improved 4. VTE prophylaxis with SCDs. 5. CODE STATUS: Addressed with the patient. Patient wishes to be full CODE STATUS. 6. Disposition: * Plan is to have the patient complete his 5-day course of IVIG. He'll have that completed on the fourth. If his hemoglobin remains stable then he can likely be discharged that day however if he is still requiring ongoing transfusions he may need to stay longer. Charges/Coding Visit Charges Inpatient E&M: 86424 Subs Hosp L2
[2021-04-03] MEDS: Immune Globulin 20 gm Premixed Solution 186 BAG IV (12:37)
[2021-04-04] VITALS (7 sets, daily range): BP systolic 147–174; BP diastolic 72–90; PULSE 62–91; RESP 16–17; TEMP 36.3–36.8; O2SAT 97–99
[2021-04-04 05:01] LABS: Absolute Lymphocyte Count 95.24 X10^3/uL (0.83-4.51); Absolute Neutrophil Count 3.5 X10^3/uL (2.0-7.7); Basophil# 0.05 X10^3/uL; Hematocrit 28.2 % (40-54); Hemoglobin 7.7 g/dL (13.0-16.5); Lymphocyte # 95.24 X10^3/ul (0.83-4.51); Lymphocyte % 93.5 % (19-41); Mean Corp Hgb Conc 27.3 g/dL (32-36); Mean Corpuscular Hgb 30.9 pg (27.0-32.0); Mean Corpuscular Volume 113.3 fL (80-94); Monocyte# 3.05 X10^3/uL; NRBC Flagged by Analyzer 0 % (0-5); Neutrophil # 3.45 X10^3/uL (2.7-7.7); Neutrophil % 3.4 % (47-70); POSITIVE COUNT YES; POSITIVE DIFFERENTIAL YES; POSITIVE MORPHOLOGY YES; Platelet Count 81 K/mm3 (150-450); RBC Distribution Width CV 21.8 % (11.6-14.6); RBC Distribution Width SD 87.7 fl (35.1-43.9); Red Blood Count 2.49 M/mm3 (4.6-6.2); White Blood Count 101.9 K/mm3 (4.4-11.0)
[2021-04-04 05:08] LABS: Differential Indicated SCAN CRITERIA MET
[2021-04-04 05:37] LABS: Anisocytosis 2+
[2021-04-04 05:38] LABS: Macrocytosis 2+
[2021-04-04] MEDS: Pantoprazole Sodium 40 MG Tablet PO (07:47)
[2021-04-04] MEDS: Folic Acid 1 MG Tablet PO (07:47)
[2021-04-04] MEDS: Furosemide 40 MG Tablet PO (07:47)
[2021-04-04] MEDS: predniSONE 20 MG Tablet 100 MG PO (07:48)
--- NOTE | 2021-04-04 09:27 | PCM.DC ---
Discharge Instructions Diet Discharge Diet: 2000 mg Sodium Diet Activity Discharge Activity: Return to Normal Activity Dressing / Incision Call your doctor if you observe: Shortness of breath Follow Up Care Test Results: Test results from this visit will be discussed in further detail at your follow-up appointment, if applicable. Discharge Plan Admission Admit Date/Time: 03/30/21 12:26 Primary Reason for Your Visit: autoimmune hemolytic anemia Attending Provider: John Garner Primary Care Provider: Marlon Michaud Consulting Providers: Jose Muhammad ; Tra Davey ; Christopher Mccabe ; Oracio Limon ; Rip Su ; Yonas Villavicencio ; Merlin Ardon ; Sada Jones COUNTER PERSON Discharge Orders/Prescriptions Prescriptions: Continued prednisone 20 mg Tablet 100 mg PO BREAKFAST 14 Days Qty: 70 RF: 0 pantoprazole 20 mg tablet,delayed release (DR/EC) 40 mg PO BID 30 Days Qty: 120 RF: 0 folic acid 1 mg Tablet 1 mg PO BREAKFAST 30 Days Qty: 30 RF: 0 furosemide 40 mg tablet 40 mg PO BID 30 Days Qty: 60 RF: 0 Referrals / Follow Up: Marlon Michaud MD [Primary Care Provider] - Disposition Disposition (needs filled in before D/C Order can be placed): Home, Self Care
--- NOTE | 2021-04-04 09:30 | DS.PCM_ITS ---
Providers Date of Admission: 03/30/21 Primary Care Physician: Dr. Marlon Michaud MD Consultations 03/30/21 13:05 Consult: Oncology/Hematology Routine Consulting Provider: [facility] ([facility]) Reason for Consult: anemia EMERGENT Consult: No MD Notified: Yes Date Notified: 03/30/21 Time Notified: 12:31 Method of Notification: Verbal Reason For Visit: ANEMIA Diagnosis Discharge Diagnosis (1) Anemia: Status: Acute Code(s): D64.9 - Anemia, unspecified Qualifiers: Anemia type: acquired or hereditary hemolytic anemia Hemolytic anemia type: acquired, autoimmune, drug-induced Qualified Code(s): D59.0 - Drug- induced autoimmune hemolytic anemia (2) Chronic lymphocytic leukemia: Status: Chronic Code(s): C91.10 - Chronic lymphocytic leukemia of B-cell type not having achieved remission Medications at Discharge Home Medications folic acid 1 mg PO BREAKFAST 30 Days #30 tab 03/19/21 furosemide 40 mg PO BID 30 Days #60 tab 03/19/21 pantoprazole 40 mg PO BID 30 Days #120 tab 03/19/21 prednisone 100 mg PO BREAKFAST 14 Days #70 tab 03/19/21 Hospital Course Operations None Procedures None Summary of Care Provided Minutes Spent on Discharge: 28 Hospital Course: Is a 58-year-old male presents with recurrent autoimmune hemolytic anemia. Patient had previously been admitted treated with prednisone and transfusions. Patient was admitted and transfused. Patient was transfused a total of 5 units of packed red blood cells during this admission. Patient was seen in consultation by Dr. Davey. Who ordered IVIG. Patient completed 5 days of IVIG and his hemoglobin has remained stable over the past 3 days. Patient will be discharged with follow-up with oncology for his CLL. Physical Exam Const alert and no apparent distress Constitutional Narrative: up in bathroom. Neuro Sensorium / Orientation: awake and alert Psych affect normal Weight / BMI Weight Weight: 93.6 kg Body Mass Index (BMI) 25.1 ABG / Lab / Microbiology Data Result Diagrams: 04/04/21 04:40 04/01/21 06:00 Laboratory: Laboratory Results - last 24 hr 03/30/21 11:40: Miscellaneous Test 04/04/21 04:40: WBC 101.9 H*, RBC 2.49 L, Hgb 7.7 L, Hct 28.2 L, MCV 113.3 H, MCH 30.9, MCHC 27.3 L, RDW Std Deviation 87.7 H, RDW Coeff of Alisa 21.8 H, Plt Count 81 L, MPV 10.0, Immature Gran % (Auto) 0.100, Neut % (Auto) 3.4 L, Lymph % (Auto) 93.5 H, [place] % (Auto) 3.0, Eos % (Auto) 0.0, Baso % (Auto) 0.0, Absolute Neuts (auto) 3.5, Absolute Lymphs (auto) 95.24 H, Nucleated RBC % 0, Diff Path Review May foll, Anisocytosis 2+, Macrocytosis 2+ Microbiology: Microbiology 03/30/21 11:45 Nasal Secretion SARS-CoV-2 Antigen (Rapid) - Final D/C Instructions Discharge Diet: 2000 mg Sodium Diet Call your doctor if you observe: Shortness of breath Meaningful Use Info Meaningful Use Diagnoses (Choose all that apply): None applicable Discharge Plan Admission Admit Date/Time: 03/30/21 12:26 Primary Reason for Your Visit: autoimmune hemolytic anemia Attending Provider: John Garner Primary Care Provider: Marlon Michaud Consulting Providers: Jose Muhammad ; Tra Davey ; Christopher Mccabe ; Oracio Limon ; Rip Su ; Yonas Villavicencio ; Merlin Ardon ; Sada Jones BUSHWALKING GUIDE Discharge Orders/Prescriptions Prescriptions: Continued prednisone 20 mg Tablet 100 mg PO BREAKFAST 14 Days Qty: 70 RF: 0 pantoprazole 20 mg tablet,delayed release (DR/EC) 40 mg PO BID 30 Days Qty: 120 RF: 0 folic acid 1 mg Tablet 1 mg PO BREAKFAST 30 Days Qty: 30 RF: 0 furosemide 40 mg tablet 40 mg PO BID 30 Days Qty: 60 RF: 0 Referrals / Follow Up: Marlon Michaud MD [Primary Care Provider] - Within 2 Weeks Christopher Mccabe MD [STAFF PHYSICIAN] - Within 1 Week Disposition Disposition (needs filled in before D/C Order can be placed): Home, Self Care Charges/Coding Visit Charges Inpatient E&M: 98713 Disch Hosp
[2021-04-04] MEDS: Immune Globulin 5 GM Premixed Solution 0.5 BAG IV (11:39)
[2021-04-04] MEDS: Immune Globulin 10 gm Premixed Solution 1.5 BAG IV (12:45)
[2021-04-04] MEDS: Immune Globulin 20 gm Premixed Solution 2.5 BAG IV (13:39)
[2021-04-04 14:36] LABS: Pathologist Review Reviewed
[2021-04-04 14:36] LABS: Pathologist Review Reviewed
[2021-04-04 14:36] LABS: Pathologist Review Reviewed
--- NOTE | 2021-04-05 11:57 | CASEMGMT ---
RADHA DC F/u Call DC Date: 04/04/21 DC Diagnosis: Anemia DC Disposition: Home Lace/Strata: 12/10 Called patient listed cell phone number, directly went to no VM box set up yet. [facility] [employer]
== END 2021-04-04 16:28 | disposition home or self-care (01) | DRG 809 ==
LOC: ED 11:50 → MS2 12:35
PROVIDERS: Internal Medicine Infectious Disease; Emergency Provider Emergency Medicine; PCP Family Medicine
DX: D59.0 Drug-induced autoimmune hemolytic anemia (principal); C91.10 Chronic lymphocytic leukemia of B-cell type not having achieved remission; T50.Z15A Adverse effect of immunoglobulin, initial encounter; D50.9 Iron deficiency anemia, unspecified; I50.9 Heart failure, unspecified; F17.200 Nicotine dependence, unspecified, uncomplicated; R60.0 Localized edema; S00.93XD Contusion of unspecified part of head, subsequent encounter; X58.XXXD Exposure to other specified factors, subsequent encounter; Z86.19 Personal history of other infectious and parasitic diseases; Z79.899 Other long term (current) drug therapy; Z79.52 Long term (current) use of systemic steroids
CPT/HCPCS: 36415; 80048; 80053; 82248; 83615; 85014; 85018; 85025; 85027; 85045; 85610; 85730; 86644; 86803; 86850; 86900; 86901; 86920; 86921; 86922; 87426; 99285; J7040; P9016; P9040; A4216; J1568

== ENCOUNTER 2021-04-29 10:00 | Outpatient (RCR) | payer MEDICARE, SELFPAY ==
[2021-04-15 10:43] VITALS: BP 157/78; PULSE 76; RESP 18; TEMP 36.6; BMI 25.6
--- NOTE | 2021-04-15 15:01 | HP.PCM_ITS ---
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 He has had a longstanding history of problems with his buttocks since the . He was seen in [facility] and treated with several incision and drainage procedures over the years for abscesses due to hidradenitis. He was tried on treatment with Humira at some point that did not improve his condition. He has been treated off and on with antibiotics in the past and has been managing the drainage with feminine hygiene products and attends. He was referred here for evaluation and possible treatment. He was recently diagnosed with CLL and has a history of vasculitis, autoimmune anemia, CHF and hepatitis B. He has very heavy drainage with odor from multiple openings in his skin of his buttocks R>L. He denies fever, chills, nausea, vomiting. 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 Bilateral lower extremity edema Chronic lymphocytic leukemia Edema, lower extremity History of hepatitis B Iron deficiency anemia due to chronic blood loss Home Medications furosemide 40 mg PO BID 30 Days #60 tab 03/19/21 [Rx Last Taken 03/29/21] pantoprazole 40 mg PO BID 30 Days #120 tab 03/19/21 [Rx Last Taken 03/30/21] folic acid 1 mg PO DAILY #100 tab 04/07/21 [Rx Last Taken Unknown] prednisone 100 mg PO DAILY #300 tab 04/07/21 [Rx Last Taken Unknown] ferrous sulfate [Iron (ferrous sulfate)] 325 mg PO DAILY 04/15/21 [History Last Taken Unknown] Allergy/AdvReac Type Severity Reaction Status Date / Time No Known Allergies Allergy Verified 04/11/21 10:42 Family History Father Diabetes Mother Hypertension Surgical History H/O foot surgery History of tonsillectomy Social History household members: none Smoking Status: Light Smoker (<10/day) second hand exposure: No alcohol intake: current alcohol intake frequency: holidays/special occasions only details: occasionally diet: low salt 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[employer] Day seatbelt use: always do you feel safe at home: Yes ROS Constitutional Constitutional: Reports fatigue Eyes Eyes: Denies blurry vision or loss of vision ENT HEENT: Denies abnormal hearing, sore throat or throat swelling Cardiovascular Cardiovascular: Denies abdominal pain, chest pain or dyspnea Respiratory/Chest Respiratory/Chest: Denies cough or dyspnea Gastrointestinal Gastrointestinal: Denies constipation, cramping, diarrhea, hematochezia or rectal bleeding Integumentary Integumentary: Reports non-healing lesions, skin ulcer and skin swelling Neurologic Neurologic: Denies dizziness or headache(s) Psychiatric Psychiatric: Reports depression; Denies suicidal ideation Vital Signs Vital Signs Vital Signs: 04/15/21 10:43 Temperature 98 F Temperature Source Temporal Pulse Rate 76 Respiratory Rate 18 Blood Pressure 157/78 H Blood Pressure Mean 104 Blood Pressure Source Manual Blood Pressure Position Semi-Fowlers Blood Pressure Location Left Arm Weight Weight: 97.976 kg Body Mass Index (BMI) 25.6 Physical Exam Const alert, oriented x3 and no apparent distress General Appearance: cooperative and comfortable HEENT normocephalic and head/scalp atraumatic Head and Scalp: normal to inspection Eyes EOMs intact bilaterally Neck no lymphadenopathy Resp normal respiratory effort Effort and Inspection: able to speak in complete sentences Cardio regular rate and regular rhythm Skin Skin Narrative: entire buttocks right and left with induration and thickening and nodularity associated with chronic hidradenitis suppurativa with multiple openings draining purulent kumar/vaughan discharge with foul odor, large fistulous tract from medial buttocks to lateral inferior buttocks on right that measures 8 cm in length and largest diameter of 2.0 cm superiorly, several other openings that are between 0.2 cm -2.0 cm on right buttock especially laterally General Skin Exam: induration Wounds: fistulous tract drainage purulent, vaughan and yellow, malodorous and open and wounds noted malodorous Wound Narrative: as in clinical panel Neuro oriented x3, moves all extremities and no focal motor deficits Psych mental status grossly normal, thought process normal, cooperative, affect normal and speech normal Appearance: appropriate Debridement Note Debridement Note Wound debrided: right buttocks Laterality: Right No debridement was completed: No debridement was completed today (no significant visualized necrotic tissue) Post-Debridement Measurements and Additional Note: Post-Debridement Measurements/Treatment WC - Nurse 1 - General Ulcer Assessment Start: 04/15/21 10:38 Freq: Status: Active Protocol: ELVIA Activity Type Activity Date Activity User E-Sign Co-Sign Detail Recorded Client Recorded Date Recorded By Document 04/15/21 10:43 RB [id number] 04/15/21 10:44 RB 04/15/21 10:43 WC - Today's Visit Information Type of service Initial Visit Arrival Mode Ambulatory Transfer Assistance None Patient Identification Verified (Name & Yes ) Patient Requires Transmission-Based No Precautions Height and Weight Height 6 ft 5 in Weight 97.976 kg Weight in Pounds 216.0 lbs Body Mass Index (BMI) 25.6 BMI Classification Overweight BSA - Brannon 2.31 Vital Signs Temperature (97.8 F-99.1 F) 98 F Temperature Source Temporal Pulse Rate (60-100) 76 Pulse Location Monitor Respiratory Rate (12-18) 18 Respiratory rate source Observation Blood Pressure (90/60-120/80) 157/78 H Blood Pressure Mean 104 Source Manual Position Semi-Fowlers Blood Pressure Location Left Arm History Since Last Visit- (Skip if this is Patient's initial visit) Have you changed medications since your No last visit? Any new allergies or adverse reactions No Had a fall/change in ADL's that may No increase risk of falls Signs or symptoms of abuse and/or No neglect since last visit Have you been in the hospital since your No last visit? Has dressing in place as prescribed Yes Has compression in place as prescribed No Has offloadiing in place as prescribed No Experienced any changes in pain level or No management - Nurse 1 - General Ulcer Measurement Start: 04/15/21 10:38 Freq: Status: Active Protocol: Activity Type Activity Date Activity User E-Sign Co-Sign Detail Recorded Client Recorded Date Recorded By Document 04/15/21 10:44 RB [id number] 04/15/21 10:58 RB 04/15/21 10:44 Wound Center Nurse 1 2. R buttocks -Combined with other wound No -Current Size (cm) - Length 0.5 -Current Size (cm) - Width 1.5 -Current Size (cm) - Depth 8 -Total Square Cm 0.75 -Tunneling No -Undermining/Tunneling No -Circular Undermining No -Exudate Amt Large -Exudate Type Purulent -Wound Margin Distinct, Outline Attached -Granulation Amt Medium (34-66%) -Granulation Quality Kline -Slough/Fibrin Yes -Necrosis Amt Medium (34-66%) -Necrotic Tissue Type Adherent Slough -Structure Exposed N/A -Texture (Marylou-wound Skin Appearance) Assessed, Friable, Localized Edema -Moisture (Marylou-wound Skin Appearance) Assessed -Color (Marylou-wound Skin Appearance) Assessed -Temperature (Marylou-wound Skin No Abnormality Appearance) (Pt Warm) -Tenderness on Palpation (Marylou-wound No Skin Appearance) -Ulcer Cleansing Wound Cleanser -Foul Odor after Cleansing Yes -Anesthetic Used 5% Lidocaine Gel WC - Nurse 2 - General Ulcer CM Notes Start: 04/15/21 10:38 Freq: Status: Active Protocol: Activity Type Activity Date Activity User E-Sign Co-Sign Detail Recorded Client Recorded Date Recorded By Document 04/15/21 11:21 MW [id number] 04/15/21 11:36 MW 04/15/21 11:21 Wound Center Nurse 2 -Time 11:27 -Correct Patient Yes -Correct Side, Site, Position Yes -Correct Procedure Yes -Procedure Performed No -Tunneling No -Undermining/Tunneling No -Circular Undermining No -Wound/Ulcer Outcome Not Healed -Ulcer Cleansing Rinsed/ Irrigated with Saline -Foul Odor after Cleansing No -Bioengineered Tissue No -Bleeding Controlled with NA -Offloading No Pain Scale: 0-10 Numeric Is Patient Pain Free? Yes WC - Nurse 3 - General Ulcer D/C NN Start: 04/15/21 10:38 Freq: Status: Active Protocol: Activity Type Activity Date Activity User E-Sign Co-Sign Detail Recorded Client Recorded Date Recorded By Document 04/15/21 11:37 MW [id number] 04/15/21 11:38 MW 04/15/21 11:37 Wound Care Nurse 3 2. R buttocks -Ulcer Cleansing Rinsed/ Irrigated with Saline -Primary Dressing Covered/Secured with Dry Gauze -Other Covering abd pad Treatment Response Procedure Tolerated Well Pain Scale: 0-10 Numeric Is Patient Pain Free? Yes Teaching: Wound Center Dressing Your Wound -Person Taught Patient -Teaching Method Discussion, Demonstration -Response to teaching Verbalize understanding WC - Visit Discharge Discharge Condition Stable Ambulatory Status Ambulatory Transportation Private Auto Accompanied by self Medication Reconcilliation completed & No provided to patient/care provider Clinical Summary of Care Provided Yes Assessment/Plan Assessment/Plan (1) Anemia: CODE(S): D64.9 - Anemia, unspecified QUALIFIERS: Anemia type: acquired or hereditary hemolytic anemia Hemolytic anemia type: acquired, autoimmune, drug-induced Qualified Code(s): D59.0 - Drug-induced autoimmune hemolytic anemia (2) History of chronic lymphocytic leukemia: CODE(S): Z85.6 - Personal history of leukemia (3) History of heart failure: CODE(S): Z86.79 - Personal history of other diseases of the circulatory system (4) History of hepatitis B: CODE(S): Z86.19 - Personal history of other infectious and parasitic diseases (5) 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 Will treat him with antibiotics based on the results of the wound culture. Discussed the extensive burden of his hidradenitis suppurativa with likely multiple fistulous tracts and that surgical excision would be ideal but would also be very extensive and likely not recommended as it would likely cause him more significant pain and deformity and would not necessarily guarantee definitive treatment and there would likely be recurrence. All of this in context with his other chronic medical conditions make palliative treatment a more realistic goal at this time. Will research for any new options for treatment but at this time, I recommended using superabsorbent dressings to help manage drainage and prevent skin breakdown as well as decrease infection and possibly starting him on a maintenance regimen of antibiotics to prevent further progression. He is willing to proceed this route and agrees to return in 2 weeks for evaluation to see how dressings and antibiotic treatment have affected his chronic extensive hidradenitis and fistula of his right buttock.
[2021-04-29 10:06] VITALS: BP 157/81; PULSE 62; RESP 18; TEMP 36.4; BMI 25.6
--- NOTE | 2021-04-29 13:25 | PN.PCM_ITS ---
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 He has had a longstanding history of problems with his buttocks since the . He was seen in [facility] and treated with several incision and drainage procedures over the years for abscesses due to hidradenitis. He was tried on treatment with Humira at some point that did not improve his condition. He has been treated off and on with antibiotics in the past and has been managing the drainage with feminine hygiene products and attends. He was referred here for evaluation and possible treatment. He was recently diagnosed with CLL and has a history of vasculitis, autoimmune anemia, CHF and hepatitis B. He has very heavy drainage with odor from multiple openings in his skin of his buttocks R>L. He denies fever, chills, nausea, vomiting. Subjective Subjective Elbert's ulcers from hidradenitis are stable and there is less odor and about 50-70% reduction in drainage from the openings of his ulcers and fistulas of his buttocks. He has been taking antibiotics for approx. 6 days. Objective Data Objective Data Vital Signs: Vital Signs Temp Pulse Resp BP 97.6 F L 62 18 157/81 H 04/29/21 10:06 04/29/21 10:06 04/29/21 10:06 04/29/21 10:06 Weight: 97.976 kg Body Mass Index (BMI) 25.6 Lab / Micro Data Micro: Microbiology 04/15/21 11:30 Wound Abcess - Buttock Gram Stain - Final 04/15/21 11:30 Wound Abcess - Buttock Wound Culture - Final Escherichia coli Proteus mirabilis Gram positive linda 04/15/21 11:30 Wound Abcess - Buttock Anaerobic Culture - Final Bacteroides thetaiotaomicron Prevotella timonensis Physical Exam Const alert, oriented x3 and no apparent distress General Appearance: cooperative and comfortable HEENT normocephalic and head/scalp atraumatic Eyes EOMs intact bilaterally Neck no lymphadenopathy Resp normal respiratory effort Effort and Inspection: able to speak in complete sentences Cardio regular rate and regular rhythm Skin Skin Narrative: entire buttocks right and left with induration and thickening and nodularity associated with chronic hidradenitis suppurativa with multiple openings draining purulent kumar/vaughan discharge without odor, large fistulous tract from medial buttocks to lateral inferior buttocks on right that measures 8 cm in length and largest diameter of 2.0 cm superiorly, several other openings that are between 0.2 cm -2.0 cm on right buttock especially laterally General Skin Exam: induration Wounds: fistulous tract drainage purulent, vaughan and yellow and open and wounds noted Wound Narrative: as in clinical panel Neuro oriented x3, moves all extremities and no focal motor deficits Psych mental status grossly normal, thought process normal, cooperative, affect normal and speech normal Appearance: appropriate Debridement Note Debridement Note Wound debrided: right buttocks Laterality: Right No debridement was completed: No debridement was completed today Post-Debridement Measurements and Additional Note: Post-Debridement Measurements/Treatment - Nurse 1 - General Ulcer Assessment Start: 04/15/21 10:38 Freq: Status: Active Protocol: ELVIA Activity Type Activity Date Activity User E-Sign Co-Sign Detail Recorded Client Recorded Date Recorded By Document 04/15/21 10:43 RB [id number] 04/15/21 10:44 RB Document 04/29/21 10:06 RB [id number] 04/29/21 10:08 RB 04/15/21 04/29/21 10:43 10:06 - Today's Visit Information Type of service Initial Visit Follow-up Visit (Physician/[employer] ) Arrival Mode Ambulatory Ambulatory Transfer Assistance None None Patient Identification Verified (Name & Yes Yes ) Patient Requires Transmission-Based No No Precautions Height and Weight Height 6 ft 5 in Weight 97.976 kg Weight in Pounds 216.0 lbs Body Mass Index (BMI) 25.6 25.6 BMI Classification Overweight Overweight BSA - Brannon 2.31 Vital Signs Temperature (97.8 F-99.1 F) 98 F 97.6 F L Temperature Source Temporal Temporal Pulse Rate (60-100) 76 62 Pulse Location Monitor Monitor Respiratory Rate (12-18) 18 18 Respiratory rate source Observation Observation Blood Pressure (90/60-120/80) 157/78 H 157/81 H Blood Pressure Mean (mm Hg) 104 106 Source Manual Monitor Position Semi-Fowlers Semi-Fowlers Blood Pressure Location Left Arm Left Arm History Since Last Visit- (Skip if this is Patient's initial visit) Have you changed medications since your No No last visit? Any new allergies or adverse reactions No No Had a fall/change in ADL's that may No No increase risk of falls Signs or symptoms of abuse and/or No No neglect since last visit Have you been in the hospital since your No No last visit? Has dressing in place as prescribed Yes Yes Has compression in place as prescribed No No Has offloadiing in place as prescribed No No Experienced any changes in pain level or No No management Left Footwear Regular Shoe Right Footwear Regular Shoe Pain Scale: 0-10 Numeric Is Patient Pain Free? Yes WC - Nurse 1 - General Ulcer Measurement Start: 04/15/21 10:38 Freq: Status: Active Protocol: Activity Type Activity Date Activity User E-Sign Co-Sign Detail Recorded Client Recorded Date Recorded By Document 04/15/21 10:44 RB [id number] 04/15/21 10:58 RB Document 04/29/21 10:06 RB [id number] 04/29/21 10:08 RB 04/15/21 04/29/21 10:44 10:06 Wound Center Nurse 1 2. R buttocks -Combined with other wound No No -Current Size (cm) - Length 0.5 1.5 -Current Size (cm) - Width 1.5 0.5 -Current Size (cm) - Depth 8 8 -Total Square Cm 0.75 0.75 -Tunneling No -Undermining/Tunneling No No -Circular Undermining No No -Exudate Amt Large Large -Exudate Type Purulent Serosanguineous -Wound Margin Distinct, Distinct, Outline Outline Attached Attached -Granulation Amt Medium (34-66%) Medium (34-66%) -Granulation Quality Rickreall Rickreall -Slough/Fibrin Yes Yes -Necrosis Amt Medium (34-66%) Small (1-33%) -Necrotic Tissue Type Adherent Slough Adherent Slough -Structure Exposed N/A N/A -Texture (Marylou-wound Skin Appearance) Assessed, Assessed Friable, Localized Edema -Moisture (Marylou-wound Skin Appearance) Assessed Assessed -Color (Marylou-wound Skin Appearance) Assessed Assessed -Temperature (Marylou-wound Skin No Abnormality No Abnormality Appearance) (Pt Warm) (Pt Warm) -Tenderness on Palpation (Marylou-wound No No Skin Appearance) -Ulcer Cleansing Wound Cleanser Wound Cleanser -Foul Odor after Cleansing Yes No -Anesthetic Used 5% Lidocaine 4% Lidocaine Gel Solution WC - Nurse 2 - General Ulcer CM Notes Start: 04/15/21 10:38 Freq: Status: Active Protocol: Activity Type Activity Date Activity User E-Sign Co-Sign Detail Recorded Client Recorded Date Recorded By Document 04/15/21 11:21 MW [id number] 04/15/21 11:36 MW Document 04/29/21 10:31 MW [id number] 04/29/21 10:39 MW 04/15/21 04/29/21 11:21 10:31 Wound Center Nurse 2 2. R buttocks -Time 11:27 10:31 -Correct Patient Yes Yes -Correct Side, Site, Position Yes Yes -Correct Procedure Yes Yes -Procedure Performed No No -Tunneling No No -Undermining/Tunneling No No -Circular Undermining No No -Wound/Ulcer Outcome Not Healed Not Healed -Ulcer Cleansing Rinsed/ Rinsed/ Irrigated with Irrigated with Saline Saline -Foul Odor after Cleansing No No -Bioengineered Tissue No No -Bleeding Controlled with NA NA -Offloading No No Pain Scale: 0-10 Numeric Is Patient Pain Free? Yes Yes - Nurse 3 - General Ulcer D/C NN Start: 04/15/21 10:38 Freq: Status: Active Protocol: Activity Type Activity Date Activity User E-Sign Co-Sign Detail Recorded Client Recorded Date Recorded By Document 04/15/21 11:37 MW [id number] 04/15/21 11:38 MW Document 04/29/21 10:39 MW [id number] 04/29/21 10:40 MW 04/15/21 04/29/21 11:37 10:39 Wound Care Nurse 3 2. R buttocks -Ulcer Cleansing Rinsed/ Not Cleansed Irrigated with Saline -Foul Odor after Cleansing No -Negative Pressure Wound Therapy N/A -Other Dressing super absorbant -Primary Dressing Covered/Secured with Dry Gauze Dry Gauze -Other Covering abd pad Treatment Response Procedure Tolerated Well Pain Scale: 0-10 Numeric Is Patient Pain Free? Yes Yes Teaching: Wound Center Dressing Your Wound -Person Taught Patient Patient -Teaching Method Discussion, Discussion Demonstration -Response to teaching Verbalize Verbalize understanding understanding WC - Visit Discharge Discharge Condition Stable Stable Ambulatory Status Ambulatory Ambulatory Transportation Private Auto Private Auto Accompanied by self self Medication Reconcilliation completed & No No provided to patient/care provider Clinical Summary of Care Provided Yes Yes Assessment/Plan Assessment/Plan (1) Anemia: CODE(S): D64.9 - Anemia, unspecified QUALIFIERS: Anemia type: acquired or hereditary hemolytic anemia Hemolytic anemia type: acquired, autoimmune, drug-induced Qualified Code(s): D59.0 - Drug-induced autoimmune hemolytic anemia (2) History of chronic lymphocytic leukemia: CODE(S): Z85.6 - Personal history of leukemia (3) History of heart failure: CODE(S): Z86.79 - Personal history of other diseases of the circulatory system (4) History of hepatitis B: CODE(S): Z86.19 - Personal history of other infectious and parasitic diseases (5) 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 There is less drainage from the fistulous tracts of his buttock than 2 weeks ago. He is tolerating antibiotic treatment well. Discussed the extensive burden of his hidradenitis suppurativa with likely multiple fistulous tracts and that surgical excision would be ideal but would also be very extensive and likely not recommended as it would likely cause him more significant pain and deformity and would not necessarily guarantee definitive treatment and there would likely be recurrence. All of this in context with his other chronic medical conditions make palliative treatment a more realistic goal at this time. Will research for any new options for treatment but at this time, I recommended using superabsorbent dressings to help manage drainage and prevent skin breakdown as well as decrease infection and possibly starting him on a maintenance regimen of antibiotics to prevent further progression. He will wash with hibiclens every other day and suggested washing his buttocks with Dakins solution on the off days as well as a way to try to decrease bacterial load. He is willing to proceed this route and agrees to return in 4 weeks for evaluation to see how dressings and antibiotic treatment have affected his chronic extensive hidradenitis and fistula of his right buttock.
== END 2021-05-01 23:59 ==
LOC: WC 10:00
PROVIDERS: PCP Family Medicine; Visit Provider Family Medicine
DX: L73.2 Hidradenitis suppurativa (principal); I50.9 Heart failure, unspecified; C91.10 Chronic lymphocytic leukemia of B-cell type not having achieved remission; Z86.19 Personal history of other infectious and parasitic diseases; D63.8 Anemia in other chronic diseases classified elsewhere; D50.0 Iron deficiency anemia secondary to blood loss (chronic); Z79.899 Other long term (current) drug therapy; Z79.52 Long term (current) use of systemic steroids; F17.200 Nicotine dependence, unspecified, uncomplicated; L98.419 Non-pressure chronic ulcer of buttock with unspecified severity
CPT/HCPCS: 87070; 87075; 87077; 87186; 87205; 93971; 99212; 99213; G0463

== ENCOUNTER 2021-06-03 09:26 | Outpatient (RCR) | payer MEDICARE, SELFPAY ==
[2021-05-02 00:05] VITALS: BP 157/81; PULSE 62; RESP 18; TEMP 36.4; BMI 25.6
[2021-06-03 09:18] VITALS: BP 136/71; PULSE 94; RESP 18; TEMP 36.6; BMI 25.6
--- NOTE | 2021-06-03 14:22 | PN.PCM_ITS ---
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 He has had a longstanding history of problems with his buttocks since the . He was seen in [facility] and treated with several incision and drainage procedures over the years for abscesses due to hidradenitis. He was tried on treatment with Humira at some point that did not improve his condition. He has been treated off and on with antibiotics in the past and has been managing the drainage with feminine hygiene products and attends. He was referred here for evaluation and possible treatment. He was recently diagnosed with CLL and has a history of vasculitis, autoimmune anemia, CHF and hepatitis B. He has very heavy drainage with odor from multiple openings in his skin of his buttocks R>L. He denies fever, chills, nausea, vomiting. Subjective Subjective Elbert's ulcers from hidradenitis are somewhat improved and but there is again increased odor and drainage in the last few days. He had decreased antibiotics to once daily. Objective Data Objective Data Vital Signs: Vital Signs Temp Pulse Resp BP 97.8 F 94 18 136/71 H 06/03/21 09:18 06/03/21 09:18 06/03/21 09:18 06/03/21 09:18 Weight: 97.976 kg Body Mass Index (BMI) 25.6 Physical Exam Const alert, oriented x3 and no apparent distress General Appearance: cooperative and comfortable HEENT normocephalic and head/scalp atraumatic Mouth: oral and palatal mucosa normal Resp normal respiratory effort Effort and Inspection: able to speak in complete sentences Cardio regular rate and regular rhythm Skin Skin Narrative: Skin Narrative: entire buttocks right and left with induration and thickening and nodularity associated with chronic hidradenitis suppurativa with multiple openings draining purulent kumar/vaughan discharge without odor, large fistulous tract from medial buttocks to lateral inferior buttocks on right that measures 8 cm in length and largest diameter of 2.0 cm superiorly, several other openings that are between 0.2 cm -2.0 cm on right buttock especially laterally General Skin Exam: induration Wounds: fistulous tract drainage purulent, vaughan and yellow and open and wounds noted Wound Narrative: as in clinical panel Debridement Note Debridement Note Wound debrided: right buttock Laterality: Right No debridement was completed: No debridement was completed today Post-Debridement Measurements and Additional Note: Post-Debridement Measurements/Treatment - Nurse 1 - General Ulcer Assessment Start: 06/03/21 09:18 Freq: Status: Active Protocol: ELVIA Activity Type Activity Date Activity User E-Sign Co-Sign Detail Recorded Client Recorded Date Recorded By Document 06/03/21 09:18 RB [id number] 06/03/21 09:29 RB 06/03/21 09:18 WC - Today's Visit Information Type of service Follow-up Visit (Physician/MEDICAL MASSAGE THERAPIST ) Arrival Mode Ambulatory Transfer Assistance Stretcher Patient Identification Verified (Name & Yes ) Patient Requires Transmission-Based No Precautions Height and Weight Body Mass Index (BMI) 25.6 BMI Classification Overweight Vital Signs Temperature (97.8 F-99.1 F) 97.8 F Temperature Source Temporal Pulse Rate (60-100) 94 Pulse Location Monitor Respiratory Rate (12-18) 18 Respiratory rate source Observation Blood Pressure (90/60-120/80) 136/71 H Blood Pressure Mean (mm Hg) 92 Source Monitor Position Semi-Fowlers Blood Pressure Location Left Arm History Since Last Visit- (Skip if this is Patient's initial visit) Have you changed medications since your No last visit? Any new allergies or adverse reactions No Had a fall/change in ADL's that may No increase risk of falls Signs or symptoms of abuse and/or No neglect since last visit Have you been in the hospital since your No last visit? Has dressing in place as prescribed Yes Has compression in place as prescribed No Has offloadiing in place as prescribed No Experienced any changes in pain level or No management Pain Scale: 0-10 Numeric Is Patient Pain Free? Yes - Nurse 1 - General Ulcer Measurement Start: 06/03/21 09:18 Freq: Status: Active Protocol: Activity Type Activity Date Activity User E-Sign Co-Sign Detail Recorded Client Recorded Date Recorded By Document 06/03/21 09:18 RB [id number] 06/03/21 09:29 RB 06/03/21 09:18 Wound Center Nurse 1 2. R buttocks -Combined with other wound No -Current Size (cm) - Length 0.3 -Current Size (cm) - Width 0.3 -Current Size (cm) - Depth 9 -Total Square Cm 0.09 -Tunneling No -Undermining/Tunneling No -Circular Undermining No -Exudate Amt Medium -Exudate Type Serosanguineous -Wound Margin Thickened & Rolled Under -Granulation Amt Medium (34-66%) -Granulation Quality [place] -Slough/Fibrin Yes -Necrosis Amt Large (67-100%) -Necrotic Tissue Type Adherent Slough -Structure Exposed N/A -Texture (Marylou-wound Skin Appearance) Assessed, Excoriation, Friable, Localized Edema -Moisture (Marylou-wound Skin Appearance) Assessed -Color (Marylou-wound Skin Appearance) Assessed, Erythema -Temperature (Marylou-wound Skin No Abnormality Appearance) (Pt Warm) -Tenderness on Palpation (Marylou-wound No Skin Appearance) -Ulcer Cleansing Wound Cleanser -Foul Odor after Cleansing Yes -Anesthetic Used 5% Lidocaine Gel - Nurse 2 - General Ulcer CM Notes Start: 06/03/21 09:18 Freq: Status: Active Protocol: Activity Type Activity Date Activity User E-Sign Co-Sign Detail Recorded Client Recorded Date Recorded By Document 06/03/21 09:57 [id number] 06/03/21 10:07 06/03/21 09:57 Wound Center Nurse 2 -Correct Patient No -Correct Side, Site, Position No -Correct Procedure No -Procedure Performed No -Tunneling No -Undermining/Tunneling No -Circular Undermining No -Wound/Ulcer Outcome Not Healed -Ulcer Cleansing Rinsed/ Irrigated with Saline -Foul Odor after Cleansing No -Bioengineered Tissue No -Bleeding Controlled with Pressure -Offloading No -Treatment Response Procedure Tolerated Well -Debridement - Subq, 1st 20sq cm No Pain Scale: 0-10 Numeric Is Patient Pain Free? Yes - Nurse 3 - General Ulcer D/C NN Start: 06/03/21 09:18 Freq: Status: Active Protocol: Activity Type Activity Date Activity User E-Sign Co-Sign Detail Recorded Client Recorded Date Recorded By Document 06/03/21 10:08 [id number] 06/03/21 10:09 06/03/21 10:08 Wound Care Nurse 3 2. R buttocks -Ulcer Cleansing Rinsed/ Irrigated with Saline -Foul Odor after Cleansing No -Primary Dressing Covered/Secured with Dry Gauze -Other Covering chux placed until patient gets home who will do his own dressing. Pain Scale: 0-10 Numeric Is Patient Pain Free? Yes WC - Visit Discharge Discharge Condition Stable Ambulatory Status Ambulatory Transportation Private Auto Medication Reconcilliation completed & Yes provided to patient/care provider Clinical Summary of Care Provided Yes Assessment/Plan Assessment/Plan (1) Fistula involving buttock: CODE(S): L98.8 - Other specified disorders of the skin and subcutaneous tissue (2) Anemia in chronic illness: CODE(S): D63.8 - Anemia in other chronic diseases classified elsewhere (3) History of chronic lymphocytic leukemia: CODE(S): Z85.6 - Personal history of leukemia (4) Hidradenitis: CODE(S): L73.2 - Hidradenitis suppurativa PLAN: Elbert's buttock ulcers and fistula were evaluated today at the wound healing center. There is more drainage from the fistulous tracts of his buttock than 4 weeks ago. He is tolerating antibiotic treatment well. Wound culture taken again today and will have him increase to twice daily antibiotic of cefdinir and flagyl. Discussed the extensive burden of his hidradenitis suppurativa with likely multiple fistulous tracts and that surgical excision would be ideal but would also be very extensive and likely not recommended as it would likely cause him more significant pain and deformity and would not necessarily guarantee definitive treatment and there would likely be recurrence. All of this in context with his other chronic medical conditions make palliative treatment a more realistic goal at this time. Will research for any new options for treatment but at this time, I recommended using superabsorbent dressings to help manage drainage and prevent skin breakdown as well as decrease infection and possibly starting him on a maintenance regimen of antibiotics to prevent further progression. He will wash with hibiclens every other day and suggested washing his buttocks with Dakins solution on the off days as well as a way to try to decrease bacterial load. He is willing to proceed this route and agrees to return in 4 weeks for evaluation to see how dressings and antibiotic treatment have affected his chronic extensive hidradenitis and fistula of his right buttock.
== END 2021-07-01 23:59 ==
LOC: WC 09:26
PROVIDERS: PCP Family Medicine; Visit Provider Family Medicine
DX: L73.2 Hidradenitis suppurativa (principal); C91.10 Chronic lymphocytic leukemia of B-cell type not having achieved remission; I50.9 Heart failure, unspecified; Z86.19 Personal history of other infectious and parasitic diseases; D63.8 Anemia in other chronic diseases classified elsewhere; L98.419 Non-pressure chronic ulcer of buttock with unspecified severity
CPT/HCPCS: 87070; 87075; 87077; 87186; 87205; 99213; G0463

== ENCOUNTER 2021-08-12 09:01 | Outpatient (RCR) | payer MEDICARE, SELFPAY ==
[2021-07-02 00:05] VITALS: BP 136/71; PULSE 94; RESP 18; TEMP 36.6; BMI 25.6
[2021-08-12 09:38] VITALS: BP 158/66; PULSE 79; RESP 18; TEMP 36.1; BMI 25.6
--- NOTE | 2021-08-12 10:03 | PCM.WC.PN ---
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 He has had a longstanding history of problems with his buttocks since the . He was seen in [facility] and treated with several incision and drainage procedures over the years for abscesses due to hidradenitis. He was tried on treatment with Humira at some point that did not improve his condition. He has been treated off and on with antibiotics in the past and has been managing the drainage with feminine hygiene products and attends. He was referred here for evaluation and possible treatment. He was recently diagnosed with CLL and has a history of vasculitis, autoimmune anemia, CHF and hepatitis B. He has very heavy drainage with odor from multiple openings in his skin of his buttocks R>L. He denies fever, chills, nausea, vomiting. Subjective Subjective Elbert's ulcers from hidradenitis are stable but there is again increased odor and drainage in the last few days. He had been off antibiotics for approx. 3 weeks. Objective Data Objective Data Vital Signs: Vital Signs Temp Pulse Resp BP 97 F L 79 18 158/66 H 08/12/21 09:38 08/12/21 09:38 08/12/21 09:38 08/12/21 09:38 Weight: 97.976 kg Body Mass Index (BMI) 25.6 Physical Exam Const alert, oriented x3 and no apparent distress General Appearance: cooperative HEENT normocephalic and head/scalp atraumatic Resp normal respiratory effort Effort and Inspection: able to speak in complete sentences Cardio regular rate Skin Skin Narrative: entire buttocks right and left with induration and thickening and nodularity associated with chronic hidradenitis suppurativa with multiple openings draining purulent kumar/vaughan discharge without odor, large fistulous tract from medial buttocks to lateral inferior buttocks on right that measures 8 cm in length and largest diameter of 2.0 cm superiorly, several other openings that are between 0.2 cm -2.0 cm on right buttock especially laterally General Skin Exam: induration Wounds: fistulous tract drainage purulent, vaughan and yellow and open and wounds noted Wound Narrative: as in clinical panel Psych mental status grossly normal, thought process normal and cooperative Debridement Note Debridement Note Post-Debridement Measurements and Additional Note: Post-Debridement Measurements/Treatment - Nurse 1 - General Ulcer Assessment Start: 08/12/21 09:34 Freq: Status: Active Protocol: ELVIA Activity Type Activity Date Activity User E-Sign Co-Sign Detail Recorded Client Recorded Date Recorded By Document 08/12/21 09:38 RB [id number] 08/12/21 09:40 RB 08/12/21 09:38 - Today's Visit Information Type of service Initial Visit Arrival Mode Ambulatory Transfer Assistance None Patient Identification Verified (Name & Yes ) Patient Requires Transmission-Based No Precautions Height and Weight Body Mass Index (BMI) 25.6 BMI Classification Overweight Vital Signs Temperature (97.8 F-99.1 F) 97 F L Temperature Source Temporal Pulse Rate (60-100) 79 Pulse Location Monitor Respiratory Rate (12-18) 18 Respiratory rate source Observation Blood Pressure (90/60-120/80) 158/66 H Blood Pressure Mean (mm Hg) 96 Source Monitor Position Sitting Blood Pressure Location Left Arm History Since Last Visit- (Skip if this is Patient's initial visit) Have you changed medications since your No last visit? Any new allergies or adverse reactions No Had a fall/change in ADL's that may No increase risk of falls Signs or symptoms of abuse and/or No neglect since last visit Have you been in the hospital since your No last visit? Has dressing in place as prescribed Yes Has compression in place as prescribed No Has offloadiing in place as prescribed No Experienced any changes in pain level or No management Pain Scale: 0-10 Numeric Is Patient Pain Free? Yes - Nurse 2 - General Ulcer CM Notes Start: 08/12/21 09:34 Freq: Status: Active Protocol: Activity Type Activity Date Activity User E-Sign Co-Sign Detail Recorded Client Recorded Date Recorded By Document 08/12/21 09:46 MW [id number] 08/12/21 09:57 MW 08/12/21 09:46 Wound Center Nurse 2 #3 right Buttocks -Time 09:46 -Correct Patient Yes -Correct Side, Site, Position Yes -Correct Procedure Yes -Procedure Performed No -Tunneling No -Undermining/Tunneling No -Circular Undermining No -Wound/Ulcer Outcome Not Healed -Bleeding Controlled with NA -Offloading No Pain Scale: 0-10 Numeric Is Patient Pain Free? Yes Assessment/Plan Assessment/Plan (1) Fistula involving buttock: CODE(S): L98.8 - Other specified disorders of the skin and subcutaneous tissue (2) Hidradenitis: CODE(S): L73.2 - Hidradenitis suppurativa (3) CLL (chronic lymphocytic leukemia): CODE(S): C91.10 - Chronic lymphocytic leukemia of B-cell type not having achieved remission (4) History of hepatitis B: CODE(S): Z86.19 - Personal history of other infectious and parasitic diseases PLAN: Elbert's buttock ulcers and fistula were evaluated today at the wound healing center. There is more drainage and swelling of the right lateral buttock. He stopped antibiotic treatment when he ran out of medication which was approx. 3 weeks ago. Wound culture taken today. Discussed the extensive burden of his hidradenitis suppurativa with likely multiple fistulous tracts and that surgical excision would be ideal but would also be very extensive and likely not recommended as it would likely cause him more significant pain and deformity and would not necessarily guarantee definitive treatment and there would likely be recurrence. All of this in context with his other chronic medical conditions make palliative treatment a more realistic goal at this time. Will research for any new options for treatment but at this time, I recommended using superabsorbent dressings changed twice daily to help manage drainage and prevent skin breakdown as well as decrease infection and possibly starting him on a maintenance regimen of antibiotics to prevent further progression. He will wash with hibiclens every other day and suggested washing his buttocks with Dakins solution on the off days as well as a way to try to decrease bacterial load. He is willing to proceed this route and agrees to return in 3 weeks for evaluation to see how dressings and antibiotic treatment have affected his chronic extensive hidradenitis and fistula of his right buttocks.
== END 2021-08-29 23:59 ==
LOC: WC 09:01
PROVIDERS: PCP Family Medicine; Visit Provider Family Medicine
DX: L73.2 Hidradenitis suppurativa (principal); C91.10 Chronic lymphocytic leukemia of B-cell type not having achieved remission; L98.419 Non-pressure chronic ulcer of buttock with unspecified severity; I50.9 Heart failure, unspecified; L98.8 Other specified disorders of the skin and subcutaneous tissue; Z86.19 Personal history of other infectious and parasitic diseases
CPT/HCPCS: 87070; 87075; 87077; 87186; 87205; 99213; G0463

== ENCOUNTER 2021-09-09 09:00 | Outpatient (RCR) | payer MEDICARE, SELFPAY ==
[2021-08-30 00:08] VITALS: BP 158/66; PULSE 79; RESP 18; TEMP 36.1; BMI 25.6
[2021-09-09 09:20] VITALS: BP 135/63; PULSE 113; TEMP 37.3; BMI 25.6
--- NOTE | 2021-09-09 09:22 | WC ---
pt c/o increased fatigue for past two days . SOB with excertion. pt denies cough and loss taste and smell or fever.
--- NOTE | 2021-09-09 09:46 | PCM.WC.PN ---
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 He has had a longstanding history of problems with his buttocks since the . He was seen in [facility] and treated with several incision and drainage procedures over the years for abscesses due to hidradenitis. He was tried on treatment with Humira at some point that did not improve his condition. He has been treated off and on with antibiotics in the past and has been managing the drainage with feminine hygiene products and attends. He was referred here for evaluation and possible treatment. He was recently diagnosed with CLL and has a history of vasculitis, autoimmune anemia, CHF and hepatitis B. He has very heavy drainage with odor from multiple openings in his skin of his buttocks R>L. He denies fever, chills, nausea, vomiting. Subjective Subjective Elbert's ulcers from hidradenitis are stable and drainage is still very heavy at times but there is less odor. He continues on antibiotic treatment. He denies any fever, chills, diarrhea, nausea or vomiting. Objective Data Objective Data Vital Signs: Vital Signs Temp Pulse Resp BP 99.1 F 113 H 18 135/63 H 09/09/21 09:20 09/09/21 09:20 08/30/21 00:08 09/09/21 09:20 Weight: 97.976 kg Body Mass Index (BMI) 25.6 Physical Exam Const alert, oriented x3 and no apparent distress General Appearance: cooperative and comfortable HEENT normocephalic and head/scalp atraumatic Resp normal respiratory effort Effort and Inspection: able to speak in complete sentences Cardio regular rate and regular rhythm Skin Skin Narrative: entire buttocks right and left with induration and thickening and nodularity associated with chronic hidradenitis suppurativa with multiple openings draining purulent kumar/vaughan discharge without odor, large fistulous tract from medial buttocks to lateral inferior buttocks on right that measures 8 cm in length and largest diameter of 2.0 cm superiorly, several other openings that are between 0.2 cm -2.0 cm on right buttock especially laterally General Skin Exam: induration Wounds: fistulous tract drainage purulent, vaughan and yellow and open and wounds noted Wound Narrative: as in clinical panel Psych mental status grossly normal, thought process normal and cooperative Debridement Note Debridement Note Wound debrided: buttocks No debridement was completed: No debridement was completed today Post-Debridement Measurements and Additional Note: Post-Debridement Measurements/Treatment - Nurse 1 - General Ulcer Assessment Start: 09/09/21 09:19 Freq: Status: Active Protocol: ELVIA Activity Type Activity Date Activity User E-Sign Co-Sign Detail Recorded Client Recorded Date Recorded By Document 09/09/21 09:20 MITRA [id number] 09/09/21 09:25 RB 09/09/21 09:20 - Today's Visit Information Type of service Follow-up Visit (Physician/DICE TABLE PERSON ) Arrival Mode Ambulatory Transfer Assistance None Patient Identification Verified (Name & Yes ) Patient Requires Transmission-Based No Precautions Height and Weight Body Mass Index (BMI) 25.6 BMI Classification Overweight Vital Signs Temperature (97.8 F-99.1 F) 99.1 F Temperature Source Temporal Pulse Rate (60-100) 113 H Pulse Location Monitor Blood Pressure (90/60-120/80) 135/63 H Blood Pressure Mean (mm Hg) 87 Source Monitor Position Semi-Fowlers Blood Pressure Location Left Arm History Since Last Visit- (Skip if this is Patient's initial visit) Have you changed medications since your No last visit? Any new allergies or adverse reactions No Had a fall/change in ADL's that may No increase risk of falls Signs or symptoms of abuse and/or No neglect since last visit Have you been in the hospital since your No last visit? Has dressing in place as prescribed Yes Has compression in place as prescribed No Has offloadiing in place as prescribed No Experienced any changes in pain level or No management Pain Scale: 0-10 Numeric Is Patient Pain Free? No lower back -Description Aching -Intensity 2 -Duration (hours) Chronic -Pain Behavior Guarding -Pain Aggravating Factors ADL's -Alleviating Factors/Interventions Medication -Effectiveness of Alleviating Factor/ Moderately Intervention effective 09/09/21 09:22 Wound Center by Kalpana Kyle pt c/o increased fatigue for past two days . SOB with excertion. pt denies cough and loss taste and smell or fever. Initialized on 09/09/21 09:22 - END OF NOTE - Nurse 2 - General Ulcer CM Notes Start: 09/09/21 09:19 Freq: Status: Active Protocol: Activity Type Activity Date Activity User E-Sign Co-Sign Detail Recorded Client Recorded Date Recorded By Document 09/09/21 09:36 MW [id number] 09/09/21 09:41 MW 09/09/21 09:36 Wound Center Nurse 2 #3 right Buttocks -Time 09:37 -Correct Patient Yes -Correct Side, Site, Position Yes -Correct Procedure Yes -Procedure Performed No -Tunneling No -Undermining/Tunneling No -Circular Undermining No -Wound/Ulcer Outcome Not Healed -Ulcer Cleansing Not Cleansed -Foul Odor after Cleansing No -Bioengineered Tissue No -Bleeding Controlled with NA -Offloading No Pain Scale: 0-10 Numeric Is Patient Pain Free? Yes - Nurse 3 - General Ulcer D/C NN Start: 09/09/21 09:19 Freq: Status: Active Protocol: Activity Type Activity Date Activity User E-Sign Co-Sign Detail Recorded Client Recorded Date Recorded By Document 09/09/21 09:44 MW [id number] 09/09/21 09:45 MW 09/09/21 09:44 Wound Care Nurse 3 #3 right Buttocks -Ulcer Cleansing Not Cleansed -Foul Odor after Cleansing No -Negative Pressure Wound Therapy N/A -Primary Dressing Applied Optilok 8x12 -Optilok 8x12 1 Treatment Response Procedure Tolerated Well Pain Scale: 0-10 Numeric Is Patient Pain Free? Yes Teaching: Wound Center Dressing Your Wound -Person Taught Patient -Teaching Method Discussion -Response to teaching Verbalize understanding WC - Visit Discharge Discharge Condition Stable Ambulatory Status Ambulatory Transportation Private Auto Accompanied by self Medication Reconcilliation completed & No provided to patient/care provider Clinical Summary of Care Provided Yes Assessment/Plan Assessment/Plan (1) Hidradenitis: CODE(S): L73.2 - Hidradenitis suppurativa (2) CLL (chronic lymphocytic leukemia): CODE(S): C91.10 - Chronic lymphocytic leukemia of B-cell type not having achieved remission (3) Anemia in chronic illness: CODE(S): D63.8 - Anemia in other chronic diseases classified elsewhere (4) History of heart failure: CODE(S): Z86.79 - Personal history of other diseases of the circulatory system (5) History of hepatitis B: CODE(S): Z86.19 - Personal history of other infectious and parasitic diseases PLAN: Elbert's buttock ulcers and fistula were evaluated today at the wound healing center. There is still a large amount of drainage but less odor. Discussed the extensive burden of his hidradenitis suppurativa with likely multiple fistulous tracts and that surgical excision would be ideal but would also be very extensive and likely not recommended as it would likely cause him more significant pain and deformity and would not necessarily guarantee definitive treatment and there would likely be recurrence. All of this in context with his other chronic medical conditions make palliative treatment a more realistic goal at this time. Will research for any new options for treatment but at this time, I recommended using superabsorbent dressings changed twice daily to help manage drainage and prevent skin breakdown as well as decrease infection and continuing him on a maintenance regimen of antibiotics to prevent further progression. Antibiotics refilled today. He will wash with hibiclens every other day and suggested washing his buttocks with Dakins solution on the off days as well as a way to try to decrease bacterial load. He is willing to proceed this route and agrees to return in 4 weeks for evaluation to see how dressings and antibiotic treatment have affected his chronic extensive hidradenitis and fistula of his right buttocks.
== END 2021-09-29 23:59 | disposition home or self-care (01) ==
LOC: WC 09:00
PROVIDERS: PCP Family Medicine; Visit Provider Family Medicine
DX: L73.2 Hidradenitis suppurativa (principal); C91.10 Chronic lymphocytic leukemia of B-cell type not having achieved remission; L98.419 Non-pressure chronic ulcer of buttock with unspecified severity; D63.8 Anemia in other chronic diseases classified elsewhere
CPT/HCPCS: 99213; G0463

== ENCOUNTER 2021-10-21 09:20 | Outpatient (RCR) | payer MEDICARE, SELFPAY ==
[2021-09-30 00:13] VITALS: BP 135/63; PULSE 113; RESP 18; TEMP 37.3; BMI 25.6
[2021-10-21 09:27] VITALS: BP 141/75; PULSE 63; TEMP 35.8; BMI 25.6
--- NOTE | 2021-10-21 14:48 | PN.PCM_ITS ---
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 He has had a longstanding history of problems with his buttocks since the . He was seen in [facility] and treated with several incision and drainage procedures over the years for abscesses due to hidradenitis. He was tried on treatment with Humira at some point that did not improve his condition. He has been treated off and on with antibiotics in the past and has been managing the drainage with feminine hygiene products and attends. He was referred here for evaluation and possible treatment. He was recently diagnosed with CLL and has a history of vasculitis, autoimmune anemia, CHF and hepatitis B. He has very heavy drainage with odor from multiple openings in his skin of his buttocks R>L. He denies fever, chills, nausea, vomiting. Subjective Subjective Elbert's ulcers from hidradenitis are stable and drainage is still very heavy at times but there is less odor. He continues on antibiotic treatment. He denies any fever, chills, diarrhea, nausea or vomiting. Objective Data Objective Data Vital Signs: Vital Signs Temp Pulse Resp BP 96.5 F L 63 18 141/75 H 10/21/21 09:27 10/21/21 09:27 09/30/21 00:13 10/21/21 09:27 Weight: 97.976 kg Body Mass Index (BMI) 25.6 Physical Exam Const alert, oriented x3 and no apparent distress General Appearance: cooperative and comfortable HEENT normocephalic and head/scalp atraumatic Resp normal respiratory effort Effort and Inspection: able to speak in complete sentences Cardio regular rate and regular rhythm Skin Wounds: wounds noted Wound Narrative: as in clinical panel Psych mental status grossly normal, thought process normal, cooperative and affect normal Debridement Note Debridement Note Wound debrided: right buttocks Laterality: Right No debridement was completed: No debridement was completed today Post-Debridement Measurements and Additional Note: Post-Debridement Measurements/Treatment MARIBEL - Nurse 1 - General Ulcer Assessment Start: 10/21/21 09:27 Freq: Status: Active Protocol: ELVIA Activity Type Activity Date Activity User E-Sign Co-Sign Detail Recorded Client Recorded Date Recorded By Document 10/21/21 09:27 AK [id number] 10/21/21 09:31 AK 10/21/21 09:27 WC - Today's Visit Information Type of service Follow-up Visit (Physician/[employer] REPAIRER ) Arrival Mode Ambulatory Patient Identification Verified (Name & Yes ) Patient Requires Transmission-Based No Precautions Safety Precautions NA Height and Weight Body Mass Index (BMI) 25.6 BMI Classification Overweight Vital Signs Temperature (97.8 F-99.1 F) 96.5 F L Temperature Source Temporal Pulse Rate (60-100) 63 Pulse Location Monitor Blood Pressure (90/60-120/80) 141/75 H Blood Pressure Mean (mm Hg) 97 Source Monitor History Since Last Visit- (Skip if this is Patient's initial visit) Have you changed medications since your No last visit? Any new allergies or adverse reactions No Had a fall/change in ADL's that may No increase risk of falls Signs or symptoms of abuse and/or No neglect since last visit Have you been in the hospital since your No last visit? Has dressing in place as prescribed Yes Has compression in place as prescribed N/A Has offloadiing in place as prescribed N/A Experienced any changes in pain level or No management Left Footwear Regular Shoe Right Footwear Regular Shoe Pain Scale: 0-10 Numeric Is Patient Pain Free? Yes - Nurse 2 - General Ulcer CM Notes Start: 10/21/21 09:27 Freq: Status: Active Protocol: Activity Type Activity Date Activity User E-Sign Co-Sign Detail Recorded Client Recorded Date Recorded By Document 10/21/21 09:56 MW [id number] 10/21/21 09:57 MW 10/21/21 09:56 Wound Center Nurse 2 #3 right Buttocks -Time 09:57 -Correct Patient Yes -Correct Side, Site, Position Yes -Correct Procedure Yes -Procedure Performed No -Wound/Ulcer Outcome Not Healed Pain Scale: 0-10 Numeric Is Patient Pain Free? Yes - Nurse 3 - General Ulcer D/C NN Start: 10/21/21 09:27 Freq: Status: Active Protocol: Activity Type Activity Date Activity User E-Sign Co-Sign Detail Recorded Client Recorded Date Recorded By Document 10/21/21 09:57 MW [id number] 10/21/21 09:58 MW 10/21/21 09:57 Wound Care Nurse 3 #3 right Buttocks -Ulcer Cleansing Not Cleansed -Foul Odor after Cleansing No -Negative Pressure Wound Therapy N/A -Primary Dressing Applied Optilok 6.5x10, Optilok 8x12 -Optilok 6.5x10 1 -Optilok 8x12 1 Pain Scale: 0-10 Numeric Is Patient Pain Free? Yes Teaching: Wound Center Dressing Your Wound -Person Taught Patient -Teaching Method Discussion -Response to teaching Verbalize understanding WC - Visit Discharge Discharge Condition Stable Ambulatory Status Ambulatory Transportation Private Auto Accompanied by self Medication Reconcilliation completed & No provided to patient/care provider Clinical Summary of Care Provided Yes Assessment/Plan Assessment/Plan (1) CLL (chronic lymphocytic leukemia): CODE(S): C91.10 - Chronic lymphocytic leukemia of B-cell type not having achieved remission (2) Fistula involving buttock: CODE(S): L98.8 - Other specified disorders of the skin and subcutaneous tissue (3) Hidradenitis: CODE(S): L73.2 - Hidradenitis suppurativa (4) Malnutrition: CODE(S): E46 - Unspecified protein-calorie malnutrition PLAN: Elbert's buttock ulcers and fistula were evaluated today at the wound healing center. There is still a large amount of drainage but less odor. Discussed the extensive burden of his hidradenitis suppurativa with likely multiple fistulous tracts and that surgical excision would be ideal but would also be very extensive and likely not recommended as it would likely cause him more significant pain and deformity and would not necessarily guarantee definitive treatment and there would likely be recurrence. All of this in context with his other chronic medical conditions make palliative treatment a more realistic goal at this time. Will research for any new options for treatment but at this time, I recommended using superabsorbent dressings changed twice daily to help manage drainage and prevent skin breakdown as well as decrease infection and continuing him on a maintenance regimen of antibiotics to prevent further progression. Antibiotics refilled today. He will wash with hibiclens every other day and suggested washing his buttocks with Dakins solution on the off days as well as a way to try to decrease bacterial load. He is willing to proceed this route and agrees to return in 4 weeks for evaluation to see how dressings and antibiotic treatment have affected his chronic extensive hidradenitis and fistula of his right buttocks.
== END 2021-10-29 23:59 | disposition home or self-care (01) ==
LOC: WC 09:20
PROVIDERS: PCP Family Medicine; Visit Provider Family Medicine
DX: L73.2 Hidradenitis suppurativa (principal); C91.10 Chronic lymphocytic leukemia of B-cell type not having achieved remission; L98.419 Non-pressure chronic ulcer of buttock with unspecified severity; I50.9 Heart failure, unspecified; L02.91 Cutaneous abscess, unspecified
CPT/HCPCS: 99213; G0463

== ENCOUNTER 2022-01-06 09:02 | Outpatient (RCR) | payer MEDICARE, SELFPAY ==
[2021-10-30 00:16] VITALS: BP 141/75; PULSE 63; RESP 18; TEMP 35.8; BMI 25.6
[2022-01-06 09:07] VITALS: BP 97/64; PULSE 74; TEMP 35.7; BMI 25.6
--- NOTE | 2022-01-06 12:50 | PCM.WC.PN ---
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 He has had a longstanding history of problems with his buttocks since the . He was seen in [facility] and treated with several incision and drainage procedures over the years for abscesses due to hidradenitis. He was tried on treatment with Humira at some point that did not improve his condition. He has been treated off and on with antibiotics in the past and has been managing the drainage with feminine hygiene products and attends. He was referred here for evaluation and possible treatment. He was recently diagnosed with CLL and has a history of vasculitis, autoimmune anemia, CHF and hepatitis B. He has very heavy drainage with odor from multiple openings in his skin of his buttocks R>L. He denies fever, chills, nausea, vomiting. Subjective Subjective Elbert's ulcers from hidradenitis are stable and drainage is still very heavy at times but there is less odor. He continues on antibiotic treatment. He denies any fever, chills, diarrhea, nausea or vomiting.\ He has not been seen for approx. 2 months. He was hospitalized after being found passed out in his home due to blood loss or low iron possibly. He is a poor historian. He was in [facility] in [place] for approx. 2 weeks and has been in a Rehab facility for approx. 2 weeks for strengthening and PT. He anticipates being discharged to home in 1-2 weeks. He is not sure what medications he is taking and if he is still on antibiotic treatment. Objective Data Objective Data Vital Signs: Vital Signs Temp Pulse Resp BP 96.2 F L 74 18 97/64 01/06/22 09:07 01/06/22 09:07 10/30/21 00:16 01/06/22 09:07 Weight: 97.976 kg Body Mass Index (BMI) 25.6 Physical Exam Const alert, oriented x3 and no apparent distress General Appearance: cooperative and comfortable HEENT normocephalic and head/scalp atraumatic Eyes EOMs intact bilaterally Neck no lymphadenopathy Resp normal respiratory effort Effort and Inspection: able to speak in complete sentences Cardio regular rate and regular rhythm Skin Skin Narrative: entire buttocks right and left with induration and thickening and nodularity associated with chronic hidradenitis suppurativa with multiple openings draining purulent kumar/vaughan discharge without odor, large fistulous tract from medial buttocks to lateral inferior buttocks on right that measures 8 cm in length and largest diameter of 2.0 cm superiorly, several other openings that are between 0.2 cm -2.0 cm on right buttock especially laterally General Skin Exam: induration Wounds: fistulous tract drainage purulent, vaughan and yellow and open and wounds noted Wound Narrative: as in clinical panel Neuro oriented x3, moves all extremities and no focal motor deficits Psych mental status grossly normal, thought process normal, cooperative, affect normal and speech normal Appearance: appropriate Debridement Note Debridement Note Wound debrided: right buttock Laterality: Right No debridement was completed: No debridement was completed today Post-Debridement Measurements and Additional Note: Post-Debridement Measurements/Treatment MARIBEL - Nurse 1 - General Ulcer Assessment Start: 01/06/22 09:06 Freq: Status: Active Protocol: ELVIA Activity Type Activity Date Activity User E-sign Co-sign Detail Recorded Client Recorded Date Recorded By Document 01/06/22 09:07 ROHIT [id number] 01/06/22 09:09 ROHIT 01/06/22 09:07 - Today's Visit Information Type of service Follow-up Visit (Physician/[employer] BUSINESS DEVELOPMENT ) Arrival Mode Wheelchair Patient Identification Verified (Name & No ) Patient Requires Transmission-Based No Precautions Safety Precautions NA Height and Weight Body Mass Index (BMI) 25.6 BMI Classification Overweight Vital Signs Temperature (97.8 F-99.1 F) 96.2 F L Temperature Source Temporal Pulse Rate (60-100) 74 Blood Pressure (90/60-120/80) 97/64 Blood Pressure Mean (mm Hg) 75 Source Monitor History Since Last Visit- (Skip if this is Patient's initial visit) Any new allergies or adverse reactions No Had a fall/change in ADL's that may No increase risk of falls Signs or symptoms of abuse and/or No neglect since last visit Have you been in the hospital since your No last visit? Left Footwear Regular Shoe Right Footwear Regular Shoe Pain Scale: 0-10 Numeric Is Patient Pain Free? Yes - Nurse 2 - General Ulcer CM Notes Start: 01/06/22 09:06 Freq: Status: Active Protocol: Activity Type Activity Date Activity User E-sign Co-sign Detail Recorded Client Recorded Date Recorded By Document 01/06/22 09:35 MW [id number] 01/06/22 09:50 MW 01/06/22 09:35 Wound Center Nurse 2 #3 right Buttocks -Time 09:45 -Correct Patient Yes -Correct Side, Site, Position Yes -Correct Procedure Yes -Procedure Performed No -Wound/Ulcer Outcome Not Healed Pain Scale: 0-10 Numeric Is Patient Pain Free? Yes WC - Nurse 3 - General Ulcer D/C NN Start: 01/06/22 09:06 Freq: Status: Active Protocol: Activity Type Activity Date Activity User E-sign Co-sign Detail Recorded Client Recorded Date Recorded By Document 01/06/22 09:59 MW [id number] 01/06/22 10:00 MW 01/06/22 09:59 Wound Care Nurse 3 #3 right Buttocks -Ulcer Cleansing Not Cleansed -Other Dressing ADULT PULL UP BRIEF Treatment Response Procedure Tolerated Well Pain Scale: 0-10 Numeric Is Patient Pain Free? Yes Teaching: Wound Center *Wound/Skin Impairment -Person Taught Patient -Teaching Method Discussion -Response to teaching Verbalize understanding WC - Visit Discharge Discharge Condition Stable Ambulatory Status Wheelchair Accompanied by BROTHER Medication Reconcilliation completed & No provided to patient/care provider Clinical Summary of Care Provided Yes Assessment/Plan Assessment/Plan (1) CLL (chronic lymphocytic leukemia): CODE(S): C91.10 - Chronic lymphocytic leukemia of B-cell type not having achieved remission (2) Fistula involving buttock: CODE(S): L98.8 - Other specified disorders of the skin and subcutaneous tissue (3) Hidradenitis: CODE(S): L73.2 - Hidradenitis suppurativa (4) Malnutrition: CODE(S): E46 - Unspecified protein-calorie malnutrition PLAN: Plan Elbert's buttock ulcers and fistula were evaluated today at the wound healing center. There is still a large amount of drainage but less odor. Discussed the extensive burden of his hidradenitis suppurativa with likely multiple fistulous tracts and that surgical excision would be ideal but would also be very extensive and likely not recommended as it would likely cause him more significant pain and deformity and would not necessarily guarantee definitive treatment and there would likely be recurrence. All of this in context with his other chronic medical conditions make palliative treatment a more realistic goal at this time. Will research for any new options for treatment but at this time, I recommended using superabsorbent dressings changed twice daily to help manage drainage and prevent skin breakdown as well as decrease infection and continuing him on a maintenance regimen of antibiotics to prevent further progression. Antibiotics refilled today. He will wash with hibiclens every other day and suggested washing his buttocks with Dakins solution on the off days as well as a way to try to decrease bacterial load. He is willing to proceed this route and agrees to return in 4 weeks for evaluation to see how dressings and antibiotic treatment have affected his chronic extensive hidradenitis and fistula of his right buttocks. Will obtain records from [facility].
== END 2022-01-29 23:59 | disposition home or self-care (01) ==
LOC: WC 09:02
PROVIDERS: PCP Family Medicine; Visit Provider Family Medicine
DX: L73.2 Hidradenitis suppurativa (principal); C91.10 Chronic lymphocytic leukemia of B-cell type not having achieved remission; L98.419 Non-pressure chronic ulcer of buttock with unspecified severity; I50.9 Heart failure, unspecified
CPT/HCPCS: 99213; G0463

== ENCOUNTER 2024-08-03 19:03 | Emergency (ER) | payer MEDICARE, MEDICAID, SELFPAY ==
[2024-08-03] VITALS (9 sets, daily range): BP systolic 105–145; BP diastolic 55–74; PULSE 90–119; RESP 18–24; TEMP 36.3–37.9; O2SAT 94–100; BMI 34.5
--- NOTE | 2024-08-03 19:36 | EKG12_ITS ---
Test Reason : DYSP Blood Pressure : */* mmHG Vent. Rate : 105 BPM Atrial Rate : 105 BPM P-R Int : 222 ms QRS Dur : 146 ms QT Int : 338 ms P-R-T Axes : 59 -69 53 degrees QTcB Int : 446 ms Sinus tachycardia with 1st degree A-V block Right bundle branch block Left anterior fascicular block Bifascicular block Minimal voltage criteria for LVH, may be normal variant ( R in aVL ) Abnormal ECG Confirmed by YANELY MARTÍNEZ, MADHU ([id number]), staff editor GERI PICHARDO ([id number]) on 08/04/2024 8:25:43 AM Referred By: Confirmed By: MADHU [place] MD
--- NOTE | 2024-08-03 19:36 | RAD_ITS ---
PROCEDURE: CHEST PA AND LATERAL REASON FOR EXAM: Worsening shortness of breath. Congestive heart failure and leukemia. Bilateral lower leg edema. TECHNIQUE: Frontal and lateral views of the chest. COMPARISON: None. FINDINGS: Lungs are clear of pneumonia and congestion. Old healed granulomatous changes. Discoid atelectasis, left lung base. Blunting of the right lateral and posterior costophrenic angles. Heart and mediastinum are normal. No hilar masses. Bones and soft tissues are unremarkable. RAD/Chest PA and Lateral IMPRESSION: 1. Small right pleural effusion. 2. Discoid atelectasis, left lung base. 3. No pneumonia or congestion. Reading Location: [facility]
--- NOTE | 2024-08-03 19:43 | ED.VIS.DYS ---
HPI <ROSHAN Ruiz - Last Filed: 08/03/24 22:11> History of Present Illness Chief Complaint: Shortness of Breath Narrative Narrative: 64-year-old male with PMH of CHF, CLL on oral chemotherapy, anemia states over the last 3 days he has had chills and increased dyspnea on exertion. No chest pain. No cough or congestion. No GI symptoms. He states he has significant chronic bilateral lower extremity swelling which has been unchanged for several months. He is on a water pill. He sees Dr. Fisher for his leukemia and has had iron transfusions in the past. He is concerned his symptoms are secondary to anemia. He denies hematemesis or blood in his urine or stool. He is not on blood thinners. 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 Anemia, macrocytic Bilateral lower extremity edema Chronic lymphocytic leukemia Edema, lower extremity Home Medications ?Medication ?Instructions ?Recorded ?Last Taken ?Type folic acid 1 mg tablet 1 mg PO DAILY #100 tabs 04/07/21 Unknown Rx Lactobacillus rhamnosus GG 10 1 cap PO BID 06/21/22 Unknown History billion cell capsule (Culturelle) acetaminophen 325 mg tablet 325 mg PO Q6H PRN pain 06/21/22 Unknown History (Tylenol) calcium carbonate 500 mg PO DAILY 06/21/22 Unknown History ergocalciferol (vitamin D2) 1,250 1,250 mcg PO QWEEK 06/21/22 Unknown History mcg (50,000 unit) capsule ondansetron HCl 4 mg tablet 4 mg PO Q4H PRN nausea and vomiting 06/21/22 Unknown History ascorbic acid (vitamin C) 500 mg 500 mg PO .QOD 11/30/22 Unknown History tablet ibrutinib 420 mg tablet 420 mg PO DAILY 11/30/22 Unknown History atorvastatin 10 mg tablet 10 mg PO QHS 06/19/23 Unknown History ketoconazole 2 % shampoo 1 applic topical DAILY PRN dry skin 06/19/23 Unknown History loperamide 2 mg capsule 2 mg PO Q6H PRN loose stool 06/19/23 Unknown History multivitamin 1 tab PO DAILY 06/19/23 Unknown History paroxetine HCl 30 mg tablet 30 mg PO DAILY 06/19/23 Unknown History secukinumab 150 mg/mL subcutaneous 300 mg subcut Q4W 12/11/23 Unknown History syringe (Cosentyx) doxycycline hyclate 100 mg tablet 100 mg PO BID #14 tabs 08/03/24 Unknown Rx furosemide 80 mg tablet (Lasix) 80 mg PO DAILY 08/03/24 Unknown History ibrutinib 140 mg capsule 420 mg PO DAILY 08/03/24 Unknown History (Imbruvica) levothyroxine 25 mcg capsule 25 mcg PO DAILY 08/03/24 Unknown History loratadine 10 mg tablet 10 mg PO DAILY 08/03/24 Unknown History paroxetine HCl 10 mg tablet 15 mg PO DAILY 08/03/24 Unknown History potassium chloride 20 mEq oral 40 meq PO DAILY 08/03/24 Unknown History packet temazepam 15 mg capsule (Restoril) 15 mg PO QHS 08/03/24 Unknown History Allergy/AdvReac Type Severity Reaction Status Date / Time No Known Allergies Allergy Verified 08/04/24 00:24 Family History Father Diabetes Mother Hypertension Surgical History H/O foot surgery History of tonsillectomy Social History (Updated 12/11/23 @ 14:52 by Jyoti Main) household members: none Smoking Status: Former smoker second hand exposure: No alcohol intake: current alcohol intake frequency: holidays/special occasions only details: occasionally diet: low salt estelle/christianity: [employer] seatbelt use: always do you feel safe at home: Yes ROS <ROSHAN Ruiz - Last Filed: 08/03/24 22:11> ROS ED ROS Narrative Constitutional: Positive for chills. Negative for fever. CVS: Negative for palpitations, chest pain, syncope. Respiratory: Positive for shortness of breath. Negative for cough, orthopnea. GI: Negative for abdominal pain, nausea, vomiting, diarrhea, melena, hematochezia. EXAM <ROSHAN Ruiz - Last Filed: 08/03/24 22:11> Physical Exam Narrative Exam Narrative: CONST: Patient sitting in no acute distress. EYES: Normal inspection. NECK: Normal inspection. RESP: No respiratory distress, CTAB. CVS: Regular rate and rhythm, no murmur, no gallop. ABD: Soft and nontender, no guarding or rebound, nondistended. SKIN: Color normal, no rash, warm, dry, intact. EXTREMITIES: Symmetric bilateral lower extremity edema. 2+ DP pulses. Small left lower rodriguez has superficial wound without signs of infection. NEURO: Alert and answering questions appropriately. PSYCH: Normal affect. Const Vital Signs: 08/03/24 19:04 08/03/24 19:30 08/03/24 19:30 Temperature 97.4 F L 100.3 F H Temperature Source Temporal Oral Pulse Rate 119 H 115 H Respiratory Rate 24 H 18 Respiratory Effort Normal Non-Labored Respiratory Depth Normal Respiratory Pattern Normal Blood Pressure 105/55 L 127/71 H Blood Pressure Mean 71 89 Pulse Ox 95 98 Oxygen Delivery Method Room Air Room Air Room Air 08/03/24 20:30 08/03/24 20:44 08/03/24 21:00 Temperature 98.2 F 98.2 F 99.9 F H Temperature Source Oral Oral Oral Pulse Rate 103 H 102 H Respiratory Rate 18 19 H Respiratory Effort Respiratory Depth Respiratory Pattern Blood Pressure 139/71 H 123/67 H Blood Pressure Mean 93 85 Pulse Ox 97 96 Oxygen Delivery Method Room Air 08/03/24 22:00 08/03/24 23:00 08/03/24 23:10 Temperature 99.9 F H 99.2 F H 99.2 F H Temperature Source Oral Oral Oral Pulse Rate 98 94 90 Respiratory Rate 20 H 18 18 Respiratory Effort Respiratory Depth Respiratory Pattern Blood Pressure 132/68 H 122/57 H 145/74 H Blood Pressure Mean 89 78 97 Pulse Ox 94 94 100 Oxygen Delivery Method Room Air Room Air Room Air <Dr. Sapna Hurst, DO - Last Filed: 08/12/24 12:29> Physical Exam Const Vital Signs: 08/03/24 19:04 08/03/24 19:30 08/03/24 19:30 Temperature 97.4 F L 100.3 F H Temperature Source Temporal Oral Pulse Rate 119 H 115 H Respiratory Rate 24 H 18 Respiratory Effort Normal Non-Labored Respiratory Depth Normal Respiratory Pattern Normal Blood Pressure 105/55 L 127/71 H Blood Pressure Mean 71 89 Pulse Ox 95 98 Oxygen Delivery Method Room Air Room Air Room Air 08/03/24 20:30 08/03/24 20:44 08/03/24 21:00 Temperature 98.2 F 98.2 F 99.9 F H Temperature Source Oral Oral Oral Pulse Rate 103 H 102 H Respiratory Rate 18 19 H Respiratory Effort Respiratory Depth Respiratory Pattern Blood Pressure 139/71 H 123/67 H Blood Pressure Mean 93 85 Pulse Ox 97 96 Oxygen Delivery Method Room Air 08/03/24 22:00 08/03/24 23:00 08/03/24 23:10 Temperature 99.9 F H 99.2 F H 99.2 F H Temperature Source Oral Oral Oral Pulse Rate 98 94 90 Respiratory Rate 20 H 18 18 Respiratory Effort Respiratory Depth Respiratory Pattern Blood Pressure 132/68 H 122/57 H 145/74 H Blood Pressure Mean 89 78 97 Pulse Ox 94 94 100 Oxygen Delivery Method Room Air Room Air Room Air [facility] <ROSHAN Ruiz - Last Filed: 08/03/24 22:11> [facility] Narrative Medical decision making narrative: Differential includes but not limited to pneumonia, congestive heart failure, ACS, PE, viral illness Consults: Hematology/oncology 64-year-old male has chills and dyspnea on exertion. He has a history of CLL on oral chemotherapy in remission. He appears well and nontoxic. Vital signs show BP 105/55, HR 119, RR 24, 95% on room air, oral temp 100.3. He is speaking in full sentences in no distress with clear lung sounds. He has significant bilateral lower extremity edema which is symmetric and chronic. Labs show white count of 14.9. Hemoglobin of 12.5 is stable. CMP is within normal limits. EKG is nonischemic with chronic bifascicular block. Troponin 32. D-dimer negative. Lactic 1.3. Procalcitonin is elevated at 4.70. Chest x-ray shows no acute findings. COVID/flu/RSV is negative. I discussed the case with his oncologist, Dr. Mccabe. He states since he is not neutropenic and he is in remission for CLL he should be treated as if he was a patient without CLL. He did not recommend antibiotics unless we felt that was indicated Lab Data Attestation: I reviewed the patient's lab results. Labs: Laboratory Results - last 24 hr 08/03/24 08/03/24 19:54 20:45 WBC 14.9 H RBC 5.11 Hgb 12.5 L Hct 39.3 L MCV 76.9 L MCH 24.5 L MCHC 31.8 L RDW Std Deviation 44.6 H RDW Coeff of Alisa 16.2 H Plt Count 150 MPV 11.2 Immature Gran % (Auto) 0.500 Neut % (Auto) 90.2 H Lymph % (Auto) 5.0 L [place] % (Auto) 4.2 Eos % (Auto) 0.0 Baso % (Auto) 0.1 Absolute Neuts (auto) 13.5 H Absolute Lymphs (auto) 0.74 L Nucleated RBC % 0 D-Dimer Quant (PE/DVT) 0.34 Sodium 137 Potassium 3.8 Chloride 103 Carbon Dioxide 25.0 Anion Gap 9 BUN 18 Creatinine 1.02 Estim Creat Clear Calc 104.42 Est GFR (MDRD) Af Amer 94 Est GFR (MDRD) Non-Af 78 BUN/Creatinine Ratio 17.6 Glucose 87 Lactic Acid 1.3 Calcium 9.1 Total Bilirubin 0.60 AST 25 ALT 16 Alkaline Phosphatase 95 Troponin I High Sens 32 B-Natriuretic Peptide 20.1 Total Protein 7.3 Albumin 3.2 Globulin 4.1 Albumin/Globulin Ratio 0.8 L Procalcitonin 4.70 H Urine Color Yellow Urine Clarity Clear Urine pH 7.0 Ur Specific [place] 1.005 Urine Protein 30 H Urine Glucose (UA) Normal Urine Ketones Negative Urine Occult Blood 25 H Urine Nitrite Negative Urine Bilirubin Negative Urine Urobilinogen 4 H Ur Leukocyte Esterase 100 H Urine RBC 0-5 SEEN Urine WBC 5-10 SEEN Ur Squamous Epith Cells 0-5 SEEN Urine Bacteria 0 SEEN Urine Mucus 0 SEEN Radiography Diagnostic Testing: Clinical Impression(s) from Imaging Studies Chest X-Ray 08/03/24 19:36 IMPRESSION: 1. Small right pleural effusion. 2. Discoid atelectasis, left lung base. 3. No pneumonia or congestion. Reading Location: [facility] ED attending interpretation of 2 to be chest x-ray shows small right pleural effusion which is unchanged from previous. No acute infiltrate. EKG Initial EKG: Attestation: I personally reviewed and interpreted this EKG as follows: Interpretation: Sinus Rhythm and No Acute Injury Pattern Comments: Sinus tachycardia with first-degree AV block at 105 bpm RBBB Left anterior fascicular block No STEMI Prior EKG on March 15, 2021 has bifascicular block Prior EKG tracings: available for review Prior: Unchanged <Dr. Sapna Hurst, DO - Last Filed: 08/12/24 12:29> [facility] Lab Data Labs: Laboratory Results - last 24 hr 08/03/24 08/03/24 19:54 20:45 WBC 14.9 H RBC 5.11 Hgb 12.5 L Hct 39.3 L MCV 76.9 L MCH 24.5 L MCHC 31.8 L RDW Std Deviation 44.6 H RDW Coeff of Alisa 16.2 H Plt Count 150 MPV 11.2 Immature Gran % (Auto) 0.500 Neut % (Auto) 90.2 H Lymph % (Auto) 5.0 L [place] % (Auto) 4.2 Eos % (Auto) 0.0 Baso % (Auto) 0.1 Absolute Neuts (auto) 13.5 H Absolute Lymphs (auto) 0.74 L Nucleated RBC % 0 D-Dimer Quant (PE/DVT) 0.34 Sodium 137 Potassium 3.8 Chloride 103 Carbon Dioxide 25.0 Anion Gap 9 BUN 18 Creatinine 1.02 Estim Creat Clear Calc 104.42 Est GFR (MDRD) Af Amer 94 Est GFR (MDRD) Non-Af 78 BUN/Creatinine Ratio 17.6 Glucose 87 Lactic Acid 1.3 Calcium 9.1 Total Bilirubin 0.60 AST 25 ALT 16 Alkaline Phosphatase 95 Troponin I High Sens 32 B-Natriuretic Peptide 20.1 Total Protein 7.3 Albumin 3.2 Globulin 4.1 Albumin/Globulin Ratio 0.8 L Procalcitonin 4.70 H Urine Color Yellow Urine Clarity Clear Urine pH 7.0 Ur Specific [place] 1.005 Urine Protein 30 H Urine Glucose (UA) Normal Urine Ketones Negative Urine Occult Blood 25 H Urine Nitrite Negative Urine Bilirubin Negative Urine Urobilinogen 4 H Ur Leukocyte Esterase 100 H Urine RBC 0-5 SEEN Urine WBC 5-10 SEEN Ur Squamous Epith Cells 0-5 SEEN Urine Bacteria 0 SEEN Urine Mucus 0 SEEN Radiography Diagnostic Testing: Clinical Impression(s) from Imaging Studies Chest X-Ray 08/03/24 19:36 IMPRESSION: 1. Small right pleural effusion. 2. Discoid atelectasis, left lung base. 3. No pneumonia or congestion. Reading Location: [facility] Management Discussion w/another healthcare provider: [employer] [facility] (ON[facility]) Additional Tests and Interventions Additional Tests or Interventions: I have personally performed a face to face assessment of the patient and have reviewed the LARS Note. I performed a substantive portion of the visit including all aspects of the following. My [place] findings include: History is - Patient is a 64-year-old male with history of CLL and CHF presenting with a couple days of dyspnea exertion and chills. Patient also has a history of hidradenitis suppurativa with chronic wounds to his groin and buttocks. Cardiopulmonary workup as well as infectious workup obtained looking for cause of his symptoms. Differential is pretty vast and includes symptomatic anemia, pneumonia, influenza/viral illness, CHF exacerbation pulmonary emboli. He has chronic lower extremity edema which does not feel is any worse than normal. His chronic leg pain because of his edema as well. D-dimer is negative making DVT/PE less likely. I do not think requires a CTA. Patient does have a leukocytosis of 14.9 and appears that patient seems to run between 12 and 16 for his baseline. Hemoglobin is only mildly low at 12.5 which appears to be normal/baseline. Platelets are normal. BMP largely unremarkable. High sensitive troponin normal at 32. Given that he does not have acute ischemic changes on his EKG and his high since troponin is normal I do not think requires trending. He is not having acute chest pain. Does have a mild elevation of his procalcitonin at 4.7 or suggestive of a bacterial process. Chest x-ray reviewed by myself as well as radiology does not show any pneumonia or congestion but does show small right pleural effusion. BNP is normal no suspicion for acute decompensated CHF based on that as well as the patient's physical exam. He does not have crackles or rails. In addition on exam patient has chronic extensive wounds to his buttocks consistent with his hidradenitis but they do not appear acutely infected. Given chills and acute symptoms patient would prefer to be treated empirically for pneumonia. Flu swab is negative. Will treat with doxycycline she also has good skin pavel coverage. Case was discussed with oncology who did not think that his CLL was related to his presentation today and has no acute recommendations from an oncologic standpoint. At this time patient can be discharged back to his nursing facility. Do not requires admission. Given return precautions. Patient agreeable with plan of care. Is given 1 dose of oxycodone for his chronic leg pain while in the emergency room. Patient is not have any increased O2 requirements. Vital signs normalized in the emergency room without further intervention. Other additions or changes: [None] Discharge Plan Triage Chief Complaint: Shortness of Breath ED Midlevel Provider: Patricia Lucas ED Provider: Sapna Hurst Dx/Rx/DC Orders Clinical Impression: Dyspnea on exertion, Acute febrile illness Instructions: ED Dyspnea, ED FUO Adult Prescriptions: New doxycycline hyclate 100 mg tablet 100 mg PO BID Qty: 14 0RF No Action calcium carbonate 500 mg calcium (1,250 mg) tablet 500 mg PO DAILY Culturelle 10 billion cell capsule 1 cap PO BID ergocalciferol (vitamin D2) 1,250 mcg (50,000 unit) capsule 1,250 mcg PO QWEEK ondansetron HCl 4 mg tablet 4 mg PO Q4H PRN (Reason: nausea and vomiting) acetaminophen [Tylenol] 325 mg tablet 325 mg PO Q6H PRN (Reason: pain) ascorbic acid (vitamin C) 500 mg tablet 500 mg PO .QOD ibrutinib 420 mg tablet 420 mg PO DAILY atorvastatin 10 mg tablet 10 mg PO QHS ketoconazole 2 % shampoo 1 applic topical DAILY PRN (Reason: dry skin) loperamide 2 mg capsule 2 mg PO Q6H PRN (Reason: loose stool) multivitamin Tablet 1 tab PO DAILY paroxetine HCl 30 mg tablet 30 mg PO DAILY Cosentyx 150 mg/mL syringe 300 mg subcut Q4W Rx Instructions: 2 pens every 4 weeks on sunday folic acid 1 mg Tablet 1 mg PO DAILY Qty: 100 4RF loratadine 10 mg tablet 10 mg PO DAILY Imbruvica 140 mg capsule 420 mg PO DAILY furosemide [Lasix] 80 mg tablet 80 mg PO DAILY levothyroxine 25 mcg capsule 25 mcg PO DAILY paroxetine HCl 10 mg tablet 15 mg PO DAILY potassium chloride 20 mEq packet 40 meq PO DAILY temazepam [Restoril] 15 mg capsule 15 mg PO QHS Primary Care Provider: Marlon Michaud Referrals: Marlon Michaud MD [Primary Care Provider] - Activity Restrictions/Additional Instructions: Exact cause your symptoms is not clear. Please continue to follow-up with your doctors. We have put you on a short course of antibiotics in case there is a developing respiratory infection. Also cover for skin pathogens. At this time you do not require blood transfusion blood please follow-up with your table worker to see if they would like to do an iron transfusion Print Language: Turkish Disposition Disposition: Home, Self Care Discharge Date/Time: 08/04/24 03:06
[2024-08-03] MEDS: Acetaminophen 325 MG Tablet 650 MG PO (19:57)
[2024-08-03 20:09] LABS: Absolute Lymphocyte Count 0.74 X10^3/uL (0.83-4.51); Absolute Neutrophil Count 13.5 X10^3/uL (2.0-7.7); Basophil# 0.02 X10^3/uL; Basophil% 0.1 % (0-1); Hematocrit 39.3 % (40-54); Hemoglobin 12.5 g/dL (13.0-16.5); Lymphocyte # 0.74 X10^3/ul (0.83-4.51); Mean Corp Hgb Conc 31.8 g/dL (32-36); Mean Corpuscular Hgb 24.5 pg (27.0-32.0); Mean Corpuscular Volume 76.9 fL (80-94); Mean Platelet Vol. 11.2 fl (6.2-12.0); Monocyte# 0.62 X10^3/uL; Monocyte% 4.2 % (0-10); NRBC Flagged by Analyzer 0 % (0-5); Neutrophil # 13.46 X10^3/uL (2.7-7.7); Neutrophil % 90.2 % (47-70); Platelet Count 150 K/mm3 (150-450); RBC Distribution Width CV 16.2 % (11.6-14.6); RBC Distribution Width SD 44.6 fl (35.1-43.9); Red Blood Count 5.11 M/mm3 (4.6-6.2); White Blood Count 14.9 K/mm3 (4.4-11.0)
[2024-08-03 20:17] LABS: D-Dimer Quantitative (DVT/PE) 0.34 FEU/ug/m (0.27-0.49)
[2024-08-03 20:27] LABS: BNP,B-Type NATRIURETIC PEPTIDE 20.1 pg/mL (0-100)
[2024-08-03 20:28] LABS: ALB/GLOB Ratio 0.8 RATIO (0.9-2.4); AST(SGOT) 25 U/L (15-37); Alanine Aminotransfer ALT/SGPT 16 U/L (16-61); Albumin, Serum 3.2 g/dL (3.2-5.0); Alkaline Phosphatase 95 U/L (45-117); Anion Gap 9 (5-15); BUN 18 mg/dL (7-18); BUN/Creat Ratio 17.6 RATIO (10-20); Calcium,Total 9.1 mg/dL (8.5-10.1); Chloride 103 mmol/L (98-107); Creatinine, Serum 1.02 mg/dL (0.70-1.30); EST Glomerular Filtration Rate 78 mL/min (>60); Est Glom Filt Rate - Afr Amer 94 mL/min (>60); Estimated Creatinine Clearance 104.42 ml/min; Globulin 4.1 g/dL (2.2-4.2); Glucose 87 mg/dL (74-106); Lactic Acid 1.3 mmol/L (0.4-1.9); Potassium 3.8 mmol/L (3.5-5.1); Protein, Total 7.3 g/dL (6.4-8.2); Sodium Level 137 mmol/L (136-145); Troponin-I HS 32 pg/mL (3.0-78.0)
[2024-08-03 20:59] LABS: Bacteria 0 SEEN /hpf (None Seen); Mucous, Urine 0 SEEN /hpf (<or=2+)
[2024-08-03 21:07] LABS: Color, Urine Yellow (Yellow); Glucose, Dipstick Normal (Normal); Ketone-Dipstick Negative (Negative); Leukocyte Esterase-Dipstick 100 /ul (Negative); Nitrite-Dipstick Negative (Negative); Occult Blood-Urine 25 /ul (Negative); Protein-Dipstick 30 mg/dl (Negative); Specific Gravity, Urine 1.005 (1.002-1.030); Urine Bilirubin Dipstick Negative (Negative); Urine Clarity Clear (Clear); Urine Urobilinogen 4 mg/dl (Normal)
[2024-08-03 21:15] LABS: Red Blood Cells-Urine 0-5 SEEN /hpf (0-5); Squamous Epithelial Cells - UA 0-5 SEEN /hpf (0-5); White Blood Cells 5-10 SEEN /hpf (0-5)
--- NOTE | 2024-08-03 22:00 | ED.RN ---
This RN attempted to ambulate patient with pulse ox, per MD orders. However, patient declined at this time d/t pain and patient states I have not walked in months. MD notified.
--- NOTE | 2024-08-03 22:45 | ED.RN ---
The patient's nurse at [facility] was contacted and per [facility]'s nurse, the patient is able to ambulate at short distances. MD notified and orders followed.
[2024-08-03] MEDS: Doxycycline 100 MG CAPSULE PO (23:31)
[2024-08-03] MEDS: oxyCODONE 5 MG Tablet PO (23:55)
[2024-08-04] VITALS: BP 119/84; PULSE 103; RESP 18; O2SAT 97
--- NOTE | 2024-08-04 | ED.RN ---
Pt discharged and waiting [facility], sepsis screen discontinued on at this time.
[2024-08-04 01:00] VITALS: BP 141/73; PULSE 96; RESP 18; O2SAT 96
[2024-08-04 02:00] VITALS: BP 135/80; PULSE 100; RESP 17; O2SAT 95
== END 2024-08-04 03:06 | disposition home or self-care (01) ==
PROVIDERS: Physician Assistant; Emergency Provider Emergency Medicine; PCP Family Medicine; Visit Provider Emergency Medicine
DX: R06.02 Shortness of breath (principal); C91.11 Chronic lymphocytic leukemia of B-cell type in remission; I50.9 Heart failure, unspecified; R68.83 Chills (without fever); D63.8 Anemia in other chronic diseases classified elsewhere; I45.2 Bifascicular block; L73.2 Hidradenitis suppurativa; Z79.899 Other long term (current) drug therapy; Z86.718 Personal history of other venous thrombosis and embolism; Z87.891 Personal history of nicotine dependence
CPT/HCPCS: 36415; 71046; 80053; 81001; 83605; 83880; 84145; 84484; 85025; 85379; 87040; 87086; 87088; 87631; 93005; 99283; A4216

== ENCOUNTER 2025-01-30 15:50 | Inpatient (IN) | payer MEDICARE, MEDICAID, SELFPAY ==
[2025-01-30] VITALS (7 sets, daily range): BP systolic 117–135; BP diastolic 56–80; PULSE 111–120; RESP 17–27; TEMP 36.9–37.9; O2SAT 93–100; BMI 36.9
--- NOTE | 2025-01-30 16:16 | EKG12_ITS ---
Test Reason : Blood Pressure : */* mmHG Vent. Rate : 111 BPM Atrial Rate : 111 BPM P-R Int : 208 ms QRS Dur : 148 ms QT Int : 360 ms P-R-T Axes : 53 -54 76 degrees QTcB Int : 489 ms Sinus tachycardia Right bundle branch block Left anterior fascicular block Bifascicular block Abnormal ECG Confirmed by YANELY MARTÍNEZ, MADHU ([id number]), scientific editor GERI PICHARDO ([id number]) on 02/02/2025 6:59:23 AM Referred By: Confirmed By: MADHU [place] MD
--- NOTE | 2025-01-30 16:36 | EX.ED.DYSGE1 ---
HPI History of Present Illness Chief Complaint: Abn Labs Narrative Narrative: Chief complaint and HPI: Low iron and cough. 64-year-old male with past medical history of CLL on oral chemotherapy follows with oncology here at [facility], history of hepatitis B, chronic sacral wound presents for evaluation low iron. Patient and EMS report states that patient was sent in for low iron however triage note states low hemoglobin, unsure which one. Patient also endorses general malaise and cough for the past 2 days. Had a COVID swab that was negative. Patient states he has a chronic sacral wound. Per EMS this is draining, patient states that he is unsure if it drains at baseline as he cannot see it. He denies any chest pain, abdominal pain, nausea, vomiting. Endorses decreased p.o. intake. Review of systems: See HPI Medications: As listed on the chart Allergies: As listed on the chart PFSH: Per chart Vital signs: As listed on the chart. Reviewed. Physical exam: Gen: A&O x3 Head: Normocephalic, atraumatic Eyes: No sclera icterus, conjunctiva clear, PERRL, EOMI ENT: TMs clear BL, dry mucous membranes, posterior oropharynx unremarkable, uvula midline Neck: Trachea midline, No JVD, Full ROM, No meningismus CV: tachycardic, regular rhythm, no murmurs, bilateral pitting peripheral edema of the bilateral lower extremities-patient states this is his baseline Resp: Diminished in the bilateral bases, + productive cough GI: Abd soft, non-distended, non-tender, no r/r/g : Swollen scrotum with yeast in the bilateral groin, large sacral decubitus ulcer draining foul purulent/brownish drainage Musc: Moves all extremities, no deformity Skin: Warm, dry, skin is diffusely red-tinged not a clear or obvious rash Neuro: Alert, oriented, grossly intact, sensation intact Psych: Cooperative, appropriate mood and affect [facility] Medical History Encounter for education CLL (chronic lymphocytic leukemia) DVT of leg (deep venous thrombosis) Anemia in chronic illness History of hepatitis B Iron deficiency anemia due to chronic blood loss 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 Anemia, macrocytic Bilateral lower extremity edema Chronic lymphocytic leukemia Edema, lower extremity Home Medications ?Medication ?Instructions ?Recorded ?Last Taken ?Type folic acid 1 mg tablet 1 mg PO DAILY #100 tabs 04/07/21 Unknown Rx Lactobacillus rhamnosus GG 10 1 cap PO BID 06/21/22 Unknown History billion cell capsule (Culturelle) acetaminophen 325 mg tablet 325 mg PO Q6H PRN pain 06/21/22 Unknown History (Tylenol) calcium carbonate 500 mg PO DAILY 06/21/22 Unknown History ergocalciferol (vitamin D2) 1,250 1,250 mcg PO QWEEK 06/21/22 Unknown History mcg (50,000 unit) capsule ondansetron HCl 4 mg tablet 4 mg PO Q4H PRN nausea and vomiting 06/21/22 Unknown History ascorbic acid (vitamin C) 500 mg 500 mg PO .QOD 11/30/22 Unknown History tablet ibrutinib 420 mg tablet 420 mg PO DAILY 11/30/22 Unknown History atorvastatin 10 mg tablet 10 mg PO QHS 06/19/23 Unknown History ketoconazole 2 % shampoo 1 applic topical DAILY PRN dry skin 06/19/23 Unknown History loperamide 2 mg capsule 2 mg PO Q6H PRN loose stool 06/19/23 Unknown History multivitamin 1 tab PO DAILY 06/19/23 Unknown History paroxetine HCl 30 mg tablet 30 mg PO DAILY 06/19/23 Unknown History secukinumab 150 mg/mL subcutaneous 300 mg subcut Q4W 12/11/23 Unknown History syringe (Cosentyx) doxycycline hyclate 100 mg tablet 100 mg PO BID #14 tabs 08/03/24 Unknown Rx furosemide 80 mg tablet (Lasix) 80 mg PO DAILY 08/03/24 Unknown History ibrutinib 140 mg capsule 420 mg PO DAILY 08/03/24 Unknown History (Imbruvica) levothyroxine 25 mcg capsule 25 mcg PO DAILY 08/03/24 Unknown History loratadine 10 mg tablet 10 mg PO DAILY 08/03/24 Unknown History paroxetine HCl 10 mg tablet 15 mg PO DAILY 08/03/24 Unknown History potassium chloride 20 mEq oral 40 meq PO DAILY 08/03/24 Unknown History packet temazepam 15 mg capsule (Restoril) 15 mg PO QHS 08/03/24 Unknown History Allergy/AdvReac Type Severity Reaction Status Date / Time No Known Allergies Allergy Verified 08/04/24 00:24 Family History Father Diabetes Mother Hypertension Surgical History H/O foot surgery History of tonsillectomy Social History (Updated 01/30/25 @ 15:58 by Chelsea Clarke) housing: half-way Smoking Status: Former smoker second hand exposure: No alcohol intake: current alcohol intake frequency: holidays/special occasions only details: occasionally diet: low salt estelle/jewish: Mandaeism seatbelt use: always do you feel safe at home: Yes EXAM Physical Exam Const Vital Signs: 01/30/25 15:51 01/30/25 15:57 01/30/25 15:59 Temperature 100.2 F H 100.2 F H Temperature Source Oral Oral Pulse Rate 111 H 111 H Respiratory Rate 24 H 24 H Respiratory Effort Short of Breath Respiratory Pattern Tachypnea Blood Pressure 124/56 H 124/56 H Blood Pressure Mean 78 78 Pulse Ox 99 99 Oxygen Delivery Method Room Air Room Air 01/30/25 16:57 01/30/25 18:00 Temperature 100.3 F H 99.1 F Temperature Source Oral Oral Pulse Rate 111 H 120 H Respiratory Rate 22 H 27 H Respiratory Effort Respiratory Pattern Blood Pressure 131/80 H 126/66 H Blood Pressure Mean 97 86 Pulse Ox 99 99 Oxygen Delivery Method Room Air Room Air MDM MDM MDM Narrative Medical decision making narrative: 64-year-old male with past medical history of CLL on oral chemotherapy follows with oncology here at [facility], history of hepatitis B, chronic sacral wound presents for evaluation low iron. Patient and EMS report states that patient was sent in for low iron however triage note states low hemoglobin, unsure which one. Patient also endorses general malaise and cough for the past 2 days. He has a chronic sacral wound which is draining purulent material. On presentation patient is tachycardic, mildly tachypneic, febrile. Not hypotensive. Patient meets sepsis. NS bolus ordered. 30 cc/kg bolus not ordered due to concern for fluid overload given his history of CHF and bilateral peripheral edema. Broad-spectrum antibiotics with Zosyn and vancomycin ordered. Did culture the purulent material out of the sacral wound. Tylenol given for fever. Sepsis workup ordered including CT abdomen and pelvis. EKG reviewed. Chest x-ray concerning for pneumonia. Patient already received antibiotics. CBC with leukocytosis of 18 with baseline anemia with hemoglobin 11.3. Platelet count unremarkable. INR unremarkable. CMP with UVALDO with creatinine 1.41. No transaminitis. Lactic acid unremarkable iron is low. BNP unremarkable. Troponin 34, delta pending. CT abdomen pelvis shows extensive soft tissue infection of the bilateral buttocks, characterized by branching interconnected soft tissue thickening with foci of gas and fluid just deep to the surface of the skin.This is open to the air. No deep fascial involvement or muscle extension. Small right buttock skin defect with large ulceration. Bilateral pelvic lymphadenopathy, likely related to chronic colitis lymphocytic leukemia versus reactive lymphadenopathy. Diffuse scrotal edema and thickening. This is seen on physical exam. No no signs of cellulitis. Hyperdense right renal lesion with peripheral calcification, possibly complicated cyst with internal debris or calcified mass. Recommend renal protocol CT or MRI. Dependent lower lobe atelectasis/infiltrates bilaterally patient will warrant admission. I spoke with the hospitalist service who accepted admission. Patient was updated about the results of her and understand the plan. EKG: Interpreted by me/EM physician: EKG shows sinus tachycardia with right bundle branch block. Left anterior fascicular block. Heart rate 111. Diagnostic: Interpreted by me/EM physician: Right lower lobe pneumonia. Mild cardiomegaly. Radiology agreement. Impression: 1. Sepsis, multifactorial, pneumonia and infected sacral wound 2. UVALDO 3. Low iron Lab Data Labs: Laboratory Results - last 24 hr 01/30/25 01/30/25 16:23 16:24 WBC 18.0 H RBC 5.01 Hgb 11.3 L Hct 36.5 L MCV 72.9 L MCH 22.6 L MCHC 31.0 L RDW Std Deviation 43.9 RDW Coeff of Alisa 17.1 H Plt Count 189 MPV 12.3 H Immature Gran % (Auto) 0.700 Neut % (Auto) 90.5 H Lymph % (Auto) 4.6 L [place] % (Auto) 3.7 Eos % (Auto) 0.3 Baso % (Auto) 0.2 Absolute Neuts (auto) 16.3 H Absolute Lymphs (auto) 0.83 Nucleated RBC % 0 PT 16.4 H INR 1.3 APTT 32.1 Sodium 133 Potassium 4.3 Chloride 98 Carbon Dioxide 22.9 Anion Gap 12 BUN 24 H Creatinine 1.41 H Estim Creat Clear Calc 78.14 Est GFR (MDRD) Non-Af 55 L BUN/Creatinine Ratio 16.7 Glucose 106 H Lactic Acid 1.9 Calcium 8.5 Iron 10 L TIBC 246 L Iron Saturation 4.0 L Unsaturated IBC 236 Total Bilirubin 0.80 AST 19 ALT 8 Alkaline Phosphatase 110 Troponin T High Sens 34 H NT pro BNP II 506 Total Protein 6.5 Albumin 3.3 L Globulin 3.2 Albumin/Globulin Ratio 1.0 Radiography Diagnostic Testing: Clinical Impression(s) from Imaging Studies Abdomen/Pelvis CT 01/30/25 17:06 IMPRESSION: 1. Extensive soft tissue infection of the bilateral buttocks, characterized by branching and interconnected soft tissue thickening with foci of gas and fluid, just deep to the skin surface. No deep fascial involvement or muscle extension. Small right buttock skin defect without large ulceration. 2. Bilateral pelvic lymphadenopathy, likely related to patient's known chronic lymphocytic leukemia versus reactive lymphadenopathy due to soft tissue infection. 3. Diffuse scrotal edema and thickening, possibly due to infection/inflammation. Clinical correlation is recommended. 4. Hyperdense right renal lesion with peripheral calcification, possibly a complicated cyst with internal debris or a calcified mass. A follow-up renal protocol CT or MRI is recommended. 5. Dependent lower lobe atelectasis/infiltrates bilaterally. Reading Location: [facility] Chest X-Ray 01/30/25 17:10 IMPRESSION: Hazy right basilar opacity may represent a small layering pleural effusion versus consolidation. Scattered bibasilar linear/discoid atelectasis. Mild cardiomegaly. Reading Location: [facility] Discharge Plan Triage Chief Complaint: Abn Labs ED Provider: Oliver Judge Dx/Rx/DC Orders Prescriptions: No Action calcium carbonate 500 mg calcium (1,250 mg) tablet 500 mg PO DAILY Culturelle 10 billion cell capsule 1 cap PO BID ergocalciferol (vitamin D2) 1,250 mcg (50,000 unit) capsule 1,250 mcg PO QWEEK ondansetron HCl 4 mg tablet 4 mg PO Q4H PRN (Reason: nausea and vomiting) acetaminophen [Tylenol] 325 mg tablet 325 mg PO Q6H PRN (Reason: pain) ascorbic acid (vitamin C) 500 mg tablet 500 mg PO .QOD ibrutinib 420 mg tablet 420 mg PO DAILY atorvastatin 10 mg tablet 10 mg PO QHS ketoconazole 2 % shampoo 1 applic topical DAILY PRN (Reason: dry skin) loperamide 2 mg capsule 2 mg PO Q6H PRN (Reason: loose stool) multivitamin Tablet 1 tab PO DAILY paroxetine HCl 30 mg tablet 30 mg PO DAILY Cosentyx 150 mg/mL syringe 300 mg subcut Q4W Rx Instructions: 2 pens every 4 weeks on sunday folic acid 1 mg Tablet 1 mg PO DAILY Qty: 100 4RF loratadine 10 mg tablet 10 mg PO DAILY Imbruvica 140 mg capsule 420 mg PO DAILY furosemide [Lasix] 80 mg tablet 80 mg PO DAILY levothyroxine 25 mcg capsule 25 mcg PO DAILY paroxetine HCl 10 mg tablet 15 mg PO DAILY potassium chloride 20 mEq packet 40 meq PO DAILY temazepam [Restoril] 15 mg capsule 15 mg PO QHS doxycycline hyclate 100 mg tablet 100 mg PO BID Qty: 14 0RF Primary Care Provider: Mone Castillo Referrals: Marlon Michaud MD [Non-Staff] - Print Language: Honduran
[2025-01-30 16:41] LABS: Hematocrit 36.5 % (40-54); Hemoglobin 11.3 g/dL (13.0-16.5); Immature Granulocytes Count 0.120 X10^3/uL (0.0-0.0); Mean Corp Hgb Conc 31.0 g/dL (32-36); Mean Corpuscular Volume 72.9 fL (80-94); Mean Platelet Vol. 12.3 fl (6.2-12.0); NRBC Flagged by Analyzer 0 % (0-5); Platelet Count 189 K/mm3 (150-450); RBC Distribution Width CV 17.1 % (11.6-14.6); RBC Distribution Width SD 43.9 fl (35.1-43.9); Red Blood Count 5.01 M/mm3 (4.6-6.2); White Blood Count 18.0 K/mm3 (4.4-11.0)
[2025-01-30 16:48] LABS: Prothrombin Time (Protime)PT. 16.4 SECONDS (11.7-14.9)
[2025-01-30 16:49] LABS: Partial Thromboplast Time 32.1 Seconds (24.1-36.2)
[2025-01-30] MEDS: 0.9% Normal Saline (1000mL) 1,000 ML 1000 ML IV (16:51)
[2025-01-30] MEDS: Piperacil/Tazobactam 4.5 GM in 0.9% Normal Saline (100mL MB+) 100 ML IV (16:51)
--- NOTE | 2025-01-30 17:06 | CT_ITS ---
PROCEDURE: ABDOMEN/PELVIS W IV CONT ONLY 01/30/2025 REASON FOR EXAM: INFECTED SACRAL WOUND TECHNIQUE: ABDOMEN/PELVIS W IV CONT ONLY Coronal and Sagittal reconstruction series were provided. CONTRAST: Isovue-300 VOLUME: 100 mL One or more dose reduction techniques were used (e.g., Automated exposure control, adjustment of the mA and/or kV according to patient size, use of iterative reconstruction technique. RADIATION DOSE SUMMARY: CTDlvol: 9.97, 24.02, 14.64 mGy DLP: 1822.09 mGycm COMPARISON: None. FINDINGS: LUNG BASES: Opacities in the dependent lower lobes bilaterally. Subpleural 6.8 mm left lower lobe nodule. Multivessel coronary artery and aortic valve calcification. Mild presternal subcutaneous fat stranding and fluid. LIVER: Unremarkable. GALLBLADDER: Unremarkable. No calcified stone. BILE DUCTS: No ductal dilation. PANCREAS: Unremarkable. SPLEEN: Enlarged measuring 14.9 cm in AP dimension. No focal lesion seen. ADRENAL GLANDS: Unremarkable. KIDNEYS: The kidneys enhance symmetrically. Heterogeneously hyperdense 2.2 cm lesion with peripheral calcification in the inferior pole of the right kidney. No hydronephrosis or hydroureter. STOMACH AND BOWEL: No obstruction or perforation. No wall thickening. No CT evidence of colitis or acute diverticulitis. APPENDIX: Normal-appearing appendix. No CT evidence for appendicitis. RETRO/PERITONEUM: No free fluid. No free air. LYMPH NODES: Multiple enlarged pelvic lymph nodes, predominantly in the iliac chains bilaterally. The largest measures 4.6 x 2.0 x 2.6 cm along the right pelvic sidewall. Several small and mildly prominent inguinal lymph nodes bilaterally. PELVIC ORGANS: Unremarkable as visualized. VASCULATURE: No aortic aneurysm. Scattered calcified atherosclerosis. ABDOMINAL WALL AND SOFT TISSUES: Irregular soft tissue density thickening within the subcutaneous fat of the bilateral buttocks. This thickening is just deep to the skin surface and appears branching and interconnected with small foci of gas and fluid, consistent with complex soft tissue infection. The underlying fat planes are relatively preserved. A small skin defect is noted on the right buttock. No large ulcers are identified. The scrotum is diffusely edematous and thickened with poorly visualized scrotal contents. BONES: No fracture or suspicious osseous abnormality. CT/Abdomen/Pelvis W IV Cont ONLY IMPRESSION: 1. Extensive soft tissue infection of the bilateral buttocks, characterized by branching and interconnected soft tissue thickening with foci of gas and fluid, just deep to the skin surface. No deep fascial involvement or muscle extension. Small right buttock skin defect without large ulceration. 2. Bilateral pelvic lymphadenopathy, likely related to patient's known chronic lymphocytic leukemia versus reactive lymphadenopathy due to soft tissue infection. 3. Diffuse scrotal edema and thickening, possibly due to infection/inflammatio n. Clinical correlation is recommended. 4. Hyperdense right renal lesion with peripheral calcification, possibly a com plicated cyst with internal debris or a calcified mass. A follow-up renal protocol CT or MRI is recommended. 5. Dependent lower lobe atelectasis/infiltrates bilaterally. Reading Location: [id number]
[2025-01-30 17:08] LABS: AST(SGOT) 19 U/L (<=37); Alanine Aminotransfer ALT/SGPT 8 U/L (<=46); Albumin, Serum 3.3 g/dL (3.4-4.8); Alkaline Phosphatase 110 U/L (40-129); Anion Gap 12 (5-15); BUN 24 mg/dL (4-19); BUN/Creat Ratio 16.7 RATIO (10-20); Calcium,Total 8.5 mg/dL (7.6-11.0); Carbon Dioxide 22.9 mmol/L (21.0-32.0); Chloride 98 mmol/L (98-108); Estimated Creatinine Clearance 78.14 ml/min (50-250); Globulin 3.2 g/dL (2.2-4.2); Glucose 106 mg/dL (70-99); Potassium 4.3 mmol/L (3.3-5.1)
--- NOTE | 2025-01-30 17:10 | RAD_ITS ---
PROCEDURE: CHEST PA AND LATERAL 01/30/2025 REASON FOR EXAM: SHORTNESS OF BREATH TECHNIQUE: CHEST PA AND LATERAL COMPARISON: 08/03/2024 FINDINGS: Lungs/Pleura: Hazy opacity in the right lower lung zone may represent a small layering pleural effusion versus consolidation. No focal consolidation or sizable pleural effusion on the left. Scattered linear/discoid atelectasis in the bilateral lower lung zones. No pneumothorax. Heart/Mediastinum: Mild cardiomegaly. No significant vascular congestion. Bones/Soft tissues: Mild multilevel degenerative changes of the spine. RAD/Chest PA and Lateral IMPRESSION: Hazy right basilar opacity may represent a small layering pleural effusion vers us consolidation. Scattered bibasilar linear/discoid atelectasis. Mild cardiomegaly. Reading Location: [id number]
[2025-01-30] MEDS: Vancomycin HCl 2,000 MG in 0.9% Normal Saline (500mL Bag) 500 ML 250 MG IV (17:21)
[2025-01-30 17:39] LABS: Iron 10 ug/dL (65-175); Iron Binding Capacity,Total 246 ug/dL (250-450); Iron Binding Capacity,Unsat 236 ug/dL (228-428); Troponin T High Sensitivity 34 ng/L (<=22)
[2025-01-30 17:53] LABS: Pro- Brain NATRIURETIC PEPTIDE 506 pg/mL (<=900)
--- NOTE | 2025-01-30 18:38 | PCM.HP.STD ---
HPI - General General Date of Admission: 01/30/25 Date of Service: 01/30/25 Chief Complaint: Abnormal labs and fatigue with malaise HPI Narrative MARYCRUZ VARGAS, is a 64 M who presented to [facility] ED on 01/30/2025 from his ECF for abnormal labs and fatigue with malaise. Medical history is significant for CLL, chronic hidradenitis suppurativa, chronic iron deficiency anemia and anemia of chronic disease, venous insufficiency of lower extremities, left lower extremity DVT, and debility with chronic sacral wound. It appears he resides in long-term care at [facility]. He has had fatigue with malaise for the past few days. Labs were drawn there and he apparently was sent in primarily for low iron level. Iron studies here showed low iron and iron saturation levels but ferritin 132 and importantly hemoglobin 11.3. However, in the ED he was in sinus tachycardia in the 110s, had low-grade fever to 100.3 F, had leukocytosis to 18,000 and was found to have active drainage of his chronic sacral wound concerning for infection. CT abdomen pelvis showed an irregular soft tissue density thickening within the subcu fat of the bilateral buttocks consistent with complex soft tissue infection. Given this finding, hospitalist was contacted for admission. I saw the patient at bedside in the ED. Patient was sitting back in bed and was fatigued appearing, but he was otherwise conversing normally and in no acute distress. He denied any fevers or chills currently. Did report some buttock pain but states it is not far from his baseline. No other acute concerns currently. Will be admitted for further management. 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 Anemia, macrocytic Bilateral lower extremity edema Chronic lymphocytic leukemia Edema, lower extremity Home Medications ?Medication ?Instructions ?Recorded ?Last Taken ?Type folic acid 1 mg tablet 1 mg PO DAILY #100 tabs 04/07/21 Unknown Rx Lactobacillus rhamnosus GG 10 1 cap PO BID 06/21/22 Unknown History billion cell capsule (Culturelle) acetaminophen 325 mg tablet 325 mg PO Q6H PRN pain 06/21/22 Unknown History (Tylenol) calcium carbonate 500 mg PO DAILY 06/21/22 Unknown History ergocalciferol (vitamin D2) 1,250 1,250 mcg PO QWEEK 06/21/22 Unknown History mcg (50,000 unit) capsule ondansetron HCl 4 mg tablet 4 mg PO Q4H PRN nausea and vomiting 06/21/22 Unknown History ibrutinib 420 mg tablet 420 mg PO DAILY 11/30/22 Unknown History atorvastatin 10 mg tablet 10 mg PO QHS 06/19/23 Unknown History ketoconazole 2 % shampoo 1 applic topical DAILY PRN dry skin 06/19/23 Unknown History loperamide 2 mg capsule 2 mg PO Q6H PRN loose stool 06/19/23 Unknown History multivitamin 1 tab PO DAILY 06/19/23 Unknown History secukinumab 150 mg/mL subcutaneous 300 mg subcut Q4W 12/11/23 Unknown History syringe (Cosentyx) furosemide 80 mg tablet (Lasix) 80 mg PO DAILY 08/03/24 Unknown History ibrutinib 140 mg capsule 420 mg PO DAILY 08/03/24 Unknown History (Imbruvica) levothyroxine 25 mcg capsule 25 mcg PO DAILY 08/03/24 Unknown History loratadine 10 mg tablet 10 mg PO DAILY 08/03/24 Unknown History potassium chloride 20 mEq oral 40 meq PO DAILY 08/03/24 Unknown History packet clobetasol 0.05 % shampoo (Clobex) 1 applic topical .COMPLEX 01/30/25 Unknown History cyclobenzaprine 10 mg tablet 10 mg PO TID 01/30/25 Unknown History fluocinolone 0.01 % scalp oil and 1 applic topical QHS 01/30/25 Unknown History shower cap guaifenesin 600 mg tablet, 600 mg PO BID PRN congestion 01/30/25 Unknown History extended release 12 hr (Mucinex) omeprazole 20 mg capsule,delayed 20 mg PO DAILY 01/30/25 Unknown History release Allergy/AdvReac Type Severity Reaction Status Date / Time No Known Allergies Allergy Verified 08/04/24 00:24 Family History Father Diabetes Mother Hypertension Surgical History H/O foot surgery History of tonsillectomy Social History (Updated 01/30/25 @ 15:58 by Chelsea Clarke) housing: [facility] Smoking Status: Former smoker second hand exposure: No alcohol intake: current alcohol intake frequency: holidays/special occasions only details: occasionally diet: low salt estelle/orthodoxy: Yarsani seatbelt use: always do you feel safe at home: Yes ROS Constitutional Constitutional: Reports fatigue, malaise and weakness; Denies chills or fever(s) Eyes Eyes: Denies change in vision Cardiovascular Cardiovascular: Denies chest pain Respiratory/Chest Respiratory/Chest: Denies shortness of breath at rest Gastrointestinal Gastrointestinal: Denies abdominal pain Musculoskeletal Musculoskeletal: Denies arthralgias or myalgias Neurologic Neurologic: Denies dizziness, focal weakness or headache(s) Vital Signs Vital Signs Vital Signs: 01/30/25 15:51 01/30/25 15:57 01/30/25 15:59 Temperature 100.2 F H 100.2 F H Temperature Source Oral Oral Pulse Rate 111 H 111 H Respiratory Rate 24 H 24 H Respiratory Effort Short of Breath Respiratory Pattern Tachypnea Blood Pressure 124/56 H 124/56 H Blood Pressure Mean 78 78 Pulse Ox 99 99 Oxygen Delivery Method Room Air Room Air 01/30/25 16:57 01/30/25 18:00 Temperature 100.3 F H 99.1 F Temperature Source Oral Oral Pulse Rate 111 H 120 H Respiratory Rate 22 H 27 H Respiratory Effort Respiratory Pattern Blood Pressure 131/80 H 126/66 H Blood Pressure Mean 97 86 Pulse Ox 99 99 Oxygen Delivery Method Room Air Room Air Weight Weight: 137.8 kg Body Mass Index (BMI) 36.9 Physical Exam Const alert, oriented x3 and no apparent distress Constitutional Narrative: Elderly male, appears older than stated age, class II obesity, fatigued appearing, otherwise sitting back in bed fairly comfortably, conversing normally and in no acute distress. General Appearance: cooperative and comfortable HEENT normocephalic, head/scalp atraumatic, hearing grossly normal bilaterally, nasal mucous membranes and turbinates normal and moist oral mucous membranes Eyes PERRL, EOMs intact bilaterally and conjunctivae normal Neck full ROM Chest inspection of chest normal Resp normal respiratory effort, normal air movement, no use of accessory muscles and clear to auscultation bilaterally Cardio no murmurs and peripheral pulses 2+ throughout Cardio Narrative: Tachycardic, regular rhythm. GI normal to inspection, nondistended, normoactive bowel sounds, soft to palpation, non-tender and non-distended Back/Spine normal ROM Extremity Extremity Narrative: Significant venous stasis changes noted in bilateral lower extremities. Skin Skin Narrative: Sacral wound with drainage noted. Psych mental status grossly normal Results Lab / Micro Data 01/30/25 16:23 01/30/25 16:23 Labs: Laboratory Results - last 24 hr 01/30/25 16:23: WBC 18.0 H, RBC 5.01, Hgb 11.3 L, Hct 36.5 L, MCV 72.9 L, MCH 22.6 L, MCHC 31.0 L, RDW Std Deviation 43.9, RDW Coeff of Alisa 17.1 H, Plt Count 189, MPV 12.3 H, Immature Gran % (Auto) 0.700, Neut % (Auto) 90.5 H, Lymph % (Auto) 4.6 L, [place] % (Auto) 3.7, Eos % (Auto) 0.3, Baso % (Auto) 0.2, Absolute Neuts (auto) 16.3 H, Absolute Lymphs (auto) 0.83, Nucleated RBC % 0, PT 16.4 H, INR 1.3, APTT 32.1, Sodium 133, Potassium 4.3, Chloride 98, Carbon Dioxide 22.9, Anion Gap 12, BUN 24 H, Creatinine 1.41 H, Estim Creat Clear Calc 78.14, Est GFR (MDRD) Non-Af 55 L, BUN/Creatinine Ratio 16.7, Glucose 106 H, Calcium 8.5, Iron 10 L, TIBC 246 L, Iron Saturation 4.0 L, Unsaturated IBC 236, Total Bilirubin 0.80, AST 19, ALT 8, Alkaline Phosphatase 110, Troponin T High Sens 34 H, NT pro BNP II 506, Total Protein 6.5, Albumin 3.3 L, Globulin 3.2, Albumin/Globulin Ratio 1.0 01/30/25 16:24: Lactic Acid 1.9 Imaging Radiology Impression Abdomen/Pelvis CT 01/30/25 17:06 IMPRESSION: 1. Extensive soft tissue infection of the bilateral buttocks, characterized by branching and interconnected soft tissue thickening with foci of gas and fluid, just deep to the skin surface. No deep fascial involvement or muscle extension. Small right buttock skin defect without large ulceration. 2. Bilateral pelvic lymphadenopathy, likely related to patient's known chronic lymphocytic leukemia versus reactive lymphadenopathy due to soft tissue infection. 3. Diffuse scrotal edema and thickening, possibly due to infection/inflammation. Clinical correlation is recommended. 4. Hyperdense right renal lesion with peripheral calcification, possibly a complicated cyst with internal debris or a calcified mass. A follow-up renal protocol CT or MRI is recommended. 5. Dependent lower lobe atelectasis/infiltrates bilaterally. Reading Location: [facility] Chest X-Ray 01/30/25 17:10 IMPRESSION: Hazy right basilar opacity may represent a small layering pleural effusion versus consolidation. Scattered bibasilar linear/discoid atelectasis. Mild cardiomegaly. Reading Location: [facility] Assessment & Plan Assessment/Plan (1) Cellulitis of buttock: PLAN: Plan Patient is a 64-year-old male who presented to [facility] ED on 01/30/2025 with fatigue, malaise and abnormal labs. 1. Bilateral buttock cellulitis secondary to sacral wound infection; history of chronic hidradenitis suppurativa ? Admit under inpatient status to PCU. Wound care consulted. Patient with known history of chronic sacral wound. Presented with sacral wound with active drainage. CT abdomen pelvis showed extensive soft tissue infection of the bilateral buttocks, though no deep vaginal involvement or muscle extension noted. Wound cultures collected in ED. Will treat with IV vancomycin and Zosyn for now. Met SIRS criteria on admit with leukocytosis and sinus tachycardia and also had low-grade fever, but otherwise did not meet sepsis criteria. However, does have mild UVALDO as below suspected prerenal from infection so given 1 L of IV fluids in the ED and will give another liter of fluids over several hours this evening. Wound dressing in place, appreciate wound care recommendations and if infection worsens, could consider surgery and/or plastic surgery involvement. 2. Mild UVALDO ? Creatinine 1.41 on admit, baseline around 1.0. Presume prerenal due to infection as above. Given IV fluids on admit as above, follow-up a.m. BMP and monitor urine output. 3. Chronic iron deficiency anemia ? Follows with oncology as below. Iron studies on admit with low iron and iron saturation levels but normal ferritin level and hemoglobin stable at baseline 11-12. Not on p.o. iron supplement and will not initiate that at this time. Iron infusion not indicated above because of normal ferritin level and because of active infection. 4. CLL ? Follows with oncology, last office visit back in December 2023. Was diagnosed back in 2020 and was initially treated with high-dose steroids and Rituxan with good response. However, had relapse of CLL and was started on ibrutinib in 2021. He has now remained in remission and is on observation. No inpatient needs, continue outpatient follow-up. 5. Chronic debility ? Case management consulted. Resides in long-term care and should be fine to return there on discharge. Chronic medical conditions: ? Class II obesity: BMI 36 on admit. Complicates hospital course and care. ? Chronic HFpEF, hypertension, hyperlipidemia: Normotensive and mildly dry on admit so given IV fluids as above. Hold home Lasix for now, restart when able. Continue home statin. ? GERD: Continue home PPI. ? Hypothyroidism: Continue home Synthroid. ? History of DVT: Not on anticoagulation due to prior issues with severe anemia. ? Bilateral lower extremity venous stasis DVT prophylaxis: Lovenox CODE STATUS: Full code, verified Expected disposition: Back to [facility] Total clinical time spent by myself addressing the patient's medical issues, reviewing all the data, and collaborating with patient's care team: 75 minutes. Charges/Coding Visit Charges Inpatient E&M: 82830 Init Hosp L3
[2025-01-30 19:18] LABS: Troponin T High Sens 2 HR 33 ng/L (<=22)
[2025-01-30 19:29] LABS: Ferritin 132 ng/mL (37-417)
--- OUTSIDE RECORDS SUMMARY | 2025-01-30 19:42 | XMS RPT_ITS | CCD ---
Author Organization [facility] ion Partnership [facility] Care Team Providers Care Insurance Sales Agent Name Role Phone Dr. Marlon Michaud Primary Care Provider Dr. Marlon Michaud Referring Provider Dr. Christopher Mccabe Attending Provider Robert PATTERN STORAGE CLERK, PATTERN STORAGE CLERK-Sara Tomlin Attending Provider Marlon Michaud MD Primary Care Provider [phone] Zenaida CAMEJO, Bautista Peres (Rn)(Hist) Unavailable Unavailable Dr. Marlon Michaud Primary Care Provider Dr. Marlon Michaud Referring Provider Dr. Christopher Mccabe Attending Provider Marlon Michaud MD Primary Care Provider [phone] Zenaida RN, Bautista S (Rn)(Hist) Unavailable Unavailable Sue Sanchez MD Primary Care Provider Zenaida RN, Bautista S (Rn)(Hist) Unavailable Unavailable Sue Sanchez MD Primary Care Provider Marlon Michaud MD Primary Care Provider Zenaida RN, Bautista S (Rn)(Hist) Unavailable Unavailable Dinora Bansal MD Primary Care Provider [phone] Dinora Bansal MD Primary Care Provider Marlon Michaud Primary Care Unavailable Marlon Michaud Referring Unavailable Christopher Mccabe Attending Unavailable Sapna Hurst Attending Unavailable Marlon Michaud Primary Care Unavailable Marlon Michaud Primary Care Unavailable Robert PATTERN STORAGE CLERK, Sada Attending Unavailable Robert PATTERN STORAGE CLERK, Sada Referring Unavailable Marlon Michaud Primary Care Unavailable Marlon Michaud Referring Unavailable Christopher Mccabe Attending Unavailable GUDLA, DINORA D Primary Care Unavailable AMBERLY BOX JR Attending Unavailable OREN BRAUN Attending Unavailabl e GUDLA, DINORA D Primary Care Unavailable EMELYN MACHADO Attending Unavailable SELF Referring Unavailable GUDLA, DINORA D Primary Care Unavailable ARIANA NARANJO Attending Unavailable GUDLA, DINORA D Primary Care Unavailable GUDLA, DINORA D Primary Care Unavailable ARUNA MONTES DE OCA Admitting Unavailable RAJESH BAUMANN Attending Unavailable PAU TSANG Referring Unavailable GUDLA, DINORA D Primary Care Unavailable JEREMY ARMENDARIZ Attending Unavailable GUDLA, DINORA D Primary Care Unavailable ABHIJEET FAULKNER Attending Unavailable GUDLA, DINORA D Primary Care Unavailable Dr. Oliver Judge DO Emergency Provider Jonathan MARTÍNEZ, Dr. Mone Metcalf Primary Care [facility] er Dr. Rosalio Juarez DO Admit Provider Dr. Rosalio Juarez DO Attending Provider Medications Current Medications Medication Drug Class(es) Dates Sig (Normalized) Sig (Original) acetaminophen 325 mg oral tablet (20 sources) Start: 06-21-2022 take 1 tablet by mouth every six hours as needed for pain Acetaminophen (Tylenol) 325 mg tablet Active 325 mg PO EVERY 6 HOURS as needed for pain June 21, 2022 1:00am take 2 tablets by [facility] every six hours as needed acetaminophen (TYLENOL) 325 mg tablet Ta ke 650 mg by mouth every 6 hours as needed for pain. Active Comment on above: Take 650 mg by mouth every 6 hours as needed for pain. acetaminophen 325 mg / HYDROcodone bitartrate 5 mg oral tablet (1 source) Opioid Agonist Start: 02-17-20 End: 02-24-20 take 1 tablet by mouth every six hours as needed HYDROcodone-acetamin ophen (NORCO) 5-325 mg per tablet Indications: Hidradenitis suppurativa Take 1 tablet by mouth every 6 hours as needed for up to 7 days. 14 tablet 0 02/16/2022 02/23/2022 Active Comment on above: Take 1 tablet by jesús th every 6 hours as needed for up to 7 days. amoxicillin 875 mg / clavulanate 125 mg oral tablet (6 sources) Penicillin-class Antibacterial Start: 03-27-20 End: 04-26-20 take 1 tablet by mouth every twelve hours amoxicillin-clavulan ic acid (AUGMENTIN) 875-125 mg per tablet Take 1 tablet by mouth every 12 hours. 60 tablet 3 03/27/2022 04/26/2022 Active Start: 02-16-2022 End: 03-18-2022 take 1 tablet by mouth every twelve hours amoxicillin-clavulanic acid (AUGMENTIN) 875-125 mg per tablet Take 1 tablet by mouth every 12 hours. 60 tablet 3 02/16/2022 03/18/2022 Active Comment on above: Take 1 tablet by jesús th every 12 hours. atorvastatin 10 mg oral tablet (20 sources) HMG-CoA Reductase Inhibitor Start: 3 take 1 tablet by mouth at bedtime Atorvastatin 10 mg tablet Active 10 mg PO AT BEDTIME June 19, 2023 1:00am Comment on above: Take 10 mg by mouth daily at bedtime. calcium carbonate 1250 mg oral tablet (20 sources) Start: 2 take 1 tablet by mouth once daily Calcium Carbonate 500 mg calcium (1,250 mg) tablet Active 500 mg PO DAILY June 21, 2022 1:00am take 500 mg by mouth once daily calcium carbonate (TUMS) 500 mg chew Take 500 mg by mouth once daily. Active Comment on above: Take 500 mg by mouth once daily. cephalexin 500 mg oral capsule (10 sources) Cephalosporin Antibacterial Start: 2 End: 3 take 1 capsule by mouth twice daily cephALEXin (KEFLEX) 500 mg capsule Take 500 mg by mouth two times a day. 0 06/06/2023 Active Comment on above: Take 500 mg by mouth two times a day. clindamycin 10 mg/ml topical lotion (13 sources) Lincosamide Antibacterial Start: 4 End: 4 Clindamycin Phosphate (CLEOCIN T) 1 % lotion Apply to affected area once daily for 14 days. 02/14/2024 02/28/2024 Active Start: 02-02-2024 End: 02-16-2024 clindamycin (CLEOCIN-T) 1 % gel Apply to affected area two times a day for 14 days. 60 g 0 02/02/2024 02/16/2024 Active Start: 08-27-2023 Clindamycin Ph osphate (CLEOCIN T) 1 % lotion Apply to affected areas twice daily 60 mL 2 08/27/2023 Active Comment on above: Apply to affected ar eas twice daily clobetasol propionate 0.5 mg/ml medicated shampoo (6 sources) Corticosteroid Start: 01-30-2025 Clobetasol (Clobex) 0.05 % shampoo Active 1 NMA TOPICAL .COMPLEX January 30, 2025 12:00am 1 applic topically; mon, thurs, sat Start: 07-15-2024 Clobetasol Pro pionate (CLOBEX) 0.05 % sham Indications: Disturbance of skin sensation , Rash and nonspecific skin eruption Shampoo scalp three times per week, let sit for 5 mins on scalp. Avoid getting on face, armpits or groin. 118 mL 11 07/15/2024 Active colchicine 0.6 mg oral tablet (2 sources) Start: 02-17-2022 End: 03-19-2022 take 1 tablet by mouth once daily colchicine 0.6 mg tablet Take 1 tablet by mouth once daily. 30 tablet 1 02/17/2022 03/19/2022 Active Comment on above: Take 1 tablet by [facility] once daily. cyclobenzaprine hydrochloride 10 mg oral tablet (1 source) Muscle Relaxant Start: 01-30-2025 take 1 tablet by mouth three times daily Cyclobenzaprine 10 mg tablet Active 10 mg PO THREE TIMES A DAY January 30, 2025 12:00am ergocalciferol 1.25 mg oral capsule (20 sources) Provitamin D2 Compound Start: 02-08-2023 VITAMIN D2 1,250 mcg (50,000 unit) capsule Take 50,000 Units by mouth every Sunday. 02/08/2023 Active Start: 06-21-2022 Ergocalciferol (Vitamin D2) 1,250 mcg (50,000 unit) capsule Active 1250 ug PO EVERY WEEK June 21, 2022 1:00am Comment on above: Take 50,000 Units by mouth every Sunday. fluocinolone acetonide 0.1 mg/ml topical oil (6 sources) Corticosteroid Start: 01-30-2025 Fluocinolone And Shower Cap 0.01 % oil Active 1 NMA TOPICAL AT BEDTIME January 30, 2025 12:00am apply every , Sun and Sun Start: 07-15-2024 Fluocinolone-S hower Cap (DERMA-SMOOTHE/FS SCALP OIL) 0.01 % oil Indications: Disturbance of skin sensation , Rash and nonspecific skin eruption Use three times weekly to scalp. 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 furosemide 80 mg oral tablet (20 sources) Loop Diuretic Start: 08-03-2024 take 1 tablet by mouth once daily Furosemide (Lasix) 80 mg tablet Active 80 mg PO DAILY August 03, 2024 1:00am Start: 02-14-2024 take 1 tablet by jesús th once daily furosemide (LASIX) 40 mg tablet Take 1 tablet by mouth once daily. 02/14/2024 Active Start: 08-12-2021 End: 11-30-2022 take 1 tablet by mouth once daily Furosemide 40 mg tablet Discontinued 40 mg PO DAILY August 12, 2021 10:37am November 30, 2022 1:31pm Start: 03-19-2021 End: 08-12-2021 take 1 tablet by mouth twice daily Furosemide 40 mg tablet Discontinued 40 mg PO TWICE A DAY 60 30 0 March 19, 2021 12:00am August 12, 2021 10:37am 12 hr guaiFENesin 600 mg extended release oral tablet (1 source) Start: 01-30-2025 take 1 tablet by mouth twice daily as needed for congestion, then take 1 tablet by mouth every twelve hours as needed for congestion Guaifenesin (Mucinex) 600 mg tablet extended release 12hr Active 600 mg PO TWICE A DAY as needed for congestion January 30, 2025 12:00am ibrutinib 140 mg oral capsule (20 sources) Kinase Inhibitor Start: 08-03-2024 take 1 capsule by mouth once daily Ibrutinib (Imbruvica) 140 mg capsule Active 420 mg PO DAILY August 03, 2024 1:00am Start: 11-30-2022 take 1 tablet by mouth once da ramonita Ibrutinib 420 mg tablet Active 420 mg PO DAILY November 30, 2022 12:00am Start: 03-13-2022 take 1 capsule by [facility] once daily IMBRUVICA 140 mg capsule Take 140 mg by mouth once daily. 0 03/13/2022 Active Comment on above: Take 140 mg by mouth once daily. Take 1 tablet by [facility] once daily. ketoconazole 20 mg/ml medicated shampoo (20 sources) Azole Antifungal Start: 04-22-2024 End: 04-22-2024 ketoconazole (NIZORAL) 2 % shampoo Use on hair three times weekly, lather in and leave on for five to ten minutes before washing out. 120 mL 2 04/22/2024 Active Start: 06-19-2023 Ketoconazole 2 % shampoo Active 1 NMA TOPICAL DAILY as needed for dry skin June 19, 2023 1:00am ketoconazole (NI ZORAL) 2 % shampoo Apply to affected area once daily as needed (dry skin). Active Comment on above: Apply to affected ar ea once daily as needed (dry skin). lactobacillus rhamnosus gg [id number] unt oral capsule (20 sources) Start: 2 take 10 capsules by mouth twice daily Lactobacillus Rhamnosus Gg (Culturelle) 10 billion cell capsule Active 1 NMA PO TWICE A DAY June 21, 2022 1:00am Comment on above: Take 1 capsule by [facility] two times a day. levothyroxine sodium 0.025 mg oral capsule (1 source) l-Thyroxine Start: 5 take 1 capsule by mouth once daily Levothyroxine 25 mcg capsule Active 25 ug PO DAILY August 03, 2024 1:00am loperamide hydrochloride 2 mg oral capsule (10 sources) Opioid Agonist Start: 3 take 1 capsule by mouth every six hours as needed Loperamide 2 mg capsule Active 2 mg PO EVERY 6 HOURS as needed for loose stool June 19, 2023 1:00am take 1 capsule by [facility] every six hours as needed loperamide (IMODIUM) 2 mg cap(s) Take 2 mg by mouth four times a day as needed for diarrhea. 0 Active Comment on above: Take 2 mg by mouth f our times a day as needed for diarrhea. loratadine 10 mg oral tablet (1 source) Start: 5 take 1 tablet by mouth once daily Loratadine 10 mg tablet Active 10 mg PO DAILY August 03, 2024 1:00am minocycline 100 mg oral capsule (10 sources) Tetracycline-class Drug Start: 2 End: 3 take 1 capsule by mouth twice daily minocycline (MINOCIN, DYNACIN) 100 mg capsule Take 100 mg by mouth two times a day. 0 06/05/2023 Active Comment on above: Take 100 mg by mouth two times a day. molnupiravir 200 mg capsule (20 sources) Start: 3 molnupiravir 200 mg capsule 06/01/2023 Active Start: 06-01-2023 molnupiravir 2 00 mg capsule Multivitamin tablet (1 source) Start: 06-19-2023 Multivitamin tablet Active 1 {tbl} PO DAILY June 19, 2023 1:00am omeprazole 20 mg delayed release oral capsule (1 source) Proton Pump Inhibitor Start: 01-30-2025 take 1 capsule by mouth once daily Omeprazole 20 mg capsule,delayed release(DR/EC) Active 20 mg PO DAILY January 30, 2025 12:00am ondansetron 4 mg oral tablet (20 sources) Serotonin-3 Receptor Antagonist Start: 06-21-2022 take 1 tablet by mouth every four hours as needed for nausea and vomiting Ondansetron Hcl 4 mg tablet Active 4 mg PO Q4H as needed for nausea and vomiting June 21, 2022 1:00am Comment on above: Take 4 mg by mouth e very 4 hours as needed for nausea/vomiting. potassium chloride 20 meq powder for oral solution (19 sources) Start: 08-03-2024 take 40 mEq by mouth once daily Potassium Chloride 20 mEq packet Active 40 meq PO DAILY August 03, 2024 1:00am Start: 02-14-2024 take 20 mEq by mouth once cintia y potassium chloride (KLOR-CON) 20 mEq packet Take 20 mEq by mouth once daily. 02/14/2024 Active 1 ml secukinumab 150 mg/ml prefilled syringe (20 sources) Interleukin-17A Antagonist Start: 12-11-2023 Secukinumab (Cosentyx) 150 mg/mL syringe Active 300 mg SC every 4 weeks December 11, 2023 12:00am 2 pens every 4 weeks on sunday Start: 11-02-2023 secukinumab (C OSENTYX PEN, 2 PENS,) 150 mg/mL Inject 300mg (2 pens) subcutaneously at weeks 0,1,2,3 and 4, then 300mg (2 pens) every 4 weeks thereafter 8 Each 11/07/2023 10:32 AM EDT 11/02/2023 Active Start: 11-02-2023 End: 10-31-2024 secukinumab (COSENTYX PEN, 2 PENS,) 150 mg/mL Indications: Hidradenitis suppurativa Inject 300mg (2 pens) subcutaneously every 4 weeks 2 each 11/03/2024 11:31 AM EDT 10/31/2024 Active sulfacetamide sodium 100 mg/ml topical lotion (13 sources) Sulfonamide Antibacterial Start: 04-22-2024 End: 04-22-2024 Sulfacetamide Sodium, Acne, (KLARON) 10 % susp Use twice daily as face wash to affected areas 118 mL 5 04/22/2024 Active therapeutic multivitamin-minerals (THERA-M PLUS) 9 mg iron-400 mcg tablet (20 sources) therapeutic multivitamin-minerals (THERA-M PLUS) 9 mg iron-400 mcg tablet Take 1 tablet by mouth once daily. Active therapeutic mult ivitamin-minerals (THERA-M PLUS) 9 mg iron-400 mcg tablet Take 1 tablet by mouth once daily. 0 Suspended therapeutic mult ivitamin-minerals (THERA-M PLUS) 9 mg iron-400 mcg tablet Take 1 tablet by mouth once daily. 0 Active Comment on above: Take 1 tablet by jesús th once daily. Completed/Discontinued Medications Medication Drug Class(es) Dates Sig (Normalized) Sig (Original) 0.8 ml adalimumab 50 mg/ml auto-injector (2 sources) Tumor Necrosis Factor Sina Start: 11-20-2017 Adalimumab (HUMIRA PEN) 40 mg/0.8 mL pnkt Inject 1 pen (40mg) weekly 12 Pen 3 11/20/2017 Active Comment on above: Inject 1 pen (40mg) weekly 0.67 ml anakinra 149 mg/ml prefilled syringe (2 sources) Interleukin-1 Receptor Antagonist Start: 12-16-2018 inject 0.67 mL by subcutaneous injection once daily anakinra (KINERET) 100 mg/0.67 mL syrg Indications: Hidradenitis suppurativa Inject 0.67 mL subcutaneously once daily. 30 Syringe 5 12/16/2018 Active Comment on above: Inject 0.67 mL subcutaneously once daily . ascorbic acid 500 mg oral tablet (20 sources) Vitamin C Start: 11-30-2022 End: 01-30-2025 take 1 tablet by mouth every other day Ascorbic Acid (Vitamin C) 500 mg tablet Discontinued 500 mg PO .QOD November 30, 2022 12:00am January 30, 2025 7:01pm take 1 tablet by mouth once cintia y ascorbic acid, vitamin C, (VITAMIN C) 500 mg tablet Take 500 mg by mouth once daily. 0 Active Comment on above: Take 500 mg by mouth once daily. Take 500 mg by mouth every other day. cefdinir 300 mg oral capsule (5 sources) Cephalosporin Antibacterial Start: 09-10-19 End: 12-01-19 23 take 1 capsule by mouth twice daily Cefdinir 300 mg capsule Discontinued 300 mg PO TWICE A DAY 60 October 21, 2021 12:00am November 30, 2022 1:31pm doxycycline hyclate 100 mg oral tablet (12 sources) Tetracycline-class Drug Start: 08-03-19 25 End: 01-31-20 25 take 1 tablet by mouth twice daily Doxycycline Hyclate 100 mg tablet Discontinued 100 mg PO TWICE A DAY 14 August 03, 2024 1:00am January 30, 2025 7:01pm Start: 02-13-2024 End: 02-26-2024 take 1 capsule by mouth every twelve hours in the morning, then take 6 capsules by mouth in the evening doxycycline hyclate (VIBRAMYCIN) 100 mg capsule Take 1 capsule (100 mg) by mouth every 12 hours at 6 am and 6 pm for 26 doses. 26 capsule 02/13/2024 02/26/2024 Active Start: 03-27-2022 End: 04-26-2022 take 1 capsule by mouth twice daily doxycycline hyclate (VIBRAMYCIN) 100 mg capsule Take 1 capsule by mouth twice daily. 60 capsule 3 03/27/2022 04/26/2022 Active Start: 02-16-2022 End: 03-18-2022 take 1 capsule by mouth twice daily doxycycline hyclate (VIBRAMYCIN) 100 mg capsule Take 1 capsule by mouth twice daily. 60 capsule 3 02/16/2022 03/18/2022 Active Start: 07-04-2018 take 1 capsule by [facility] twice daily doxycycline monohydrate (MONODOX) 100 mg capsule Take 1 capsule by mouth twice daily. 60 capsule 5 07/04/2018 Active Comment on above: Take 1 capsule by [facility] twice daily. ferrous sulfate 325 mg oral tablet (20 sources) Start: 06-21-2022 End: 06-19-2023 take 1 tablet by mouth every other day Ferrous Sulfate (Iron (Ferrous Sulfate)) 325 mg (65 mg iron) tablet Discontinued 325 mg PO every other day June 21, 2022 2:38pm June 19, 2023 3:51pm Start: 04-15-2021 End: 06-21-2022 take 1 tablet by mouth once daily Ferrous Sulfate (Iron (Ferrous Sulfate)) 325 mg (65 mg iron) Tablet Discontinued 325 mg PO DAILY April 15, 2021 12:00am June 21, 2022 2:46pm Comment on above: Take 325 mg by mouth daily with breakfast. melatonin 5 mg oral capsule (1 source) Start: 12-11-19 End: 08-03-19 Melatonin 5 mg capsule Discontinued mg PO December 11, 2023 12:00am August 03, 2024 10:56pm metFORMIN hydrochloride 500 mg oral tablet (2 sources) Biguanide Start: 07-04-19 take 1 tablet by mouth once daily at breakfast metFORMIN (GLUCOPHAGE) 500 mg tablet Take 1 tablet by mouth daily with breakfast. 30 tablet 5 07/04/2018 Active Comment on above: Take 1 tablet by jesús daily with breakfast. metoprolol tartrate 25 mg oral tablet (20 sources) beta-Adrenergic Sina Start: 05-27-20 End: 08-03-19 25 take 1 tablet by mouth twice daily Metoprolol Tartrate 25 mg tablet Discontinued 25 mg PO TWICE A DAY June 19, 2023 1:00am August 03, 2024 10:57pm Start: 06-21-2022 End: 06-19-2023 take 2 tablets by mouth twice daily Metoprolol Succinate 25 mg tablet extended release 24 hr Discontinued 12.5 mg PO TWICE A DAY June 21, 2022 1:00am June 19, 2023 3:49pm Start: 02-16-2022 End: 03-18-2022 take 0.5 tablet by mouth twice daily metoprolol succinate ER (TOPROL XL) 25 mg 24 hr tablet Take 0.5 tablets by mouth twice daily. 30 tablet 3 02/16/2022 Active Comment on above: Take 0.5 tablets by mouth twice daily. Take 25 mg by mouth two times a day. metroNIDAZOLE 500 mg oral tablet (8 sources) Nitroimidazole Antimicrobial Start: End: take 1 tablet by mouth twice daily Metronidazole 500 mg tablet Discontinued 500 mg PO TWICE A DAY 60 October 21, 2021 12:00am November 30, 2022 1:31pm mirtazapine 7.5 mg oral tablet (1 source) Start: End: take 1 tablet by mouth at bedtime Mirtazapine 7.5 mg tablet Discontinued 7.5 mg PO AT BEDTIME June 21, 2022 1:00am June 19, 2023 3:51pm MULTIVITAMIN ORAL (2 sources) MULTIVITAMIN ORA L Take by mouth once daily. 0 Active Comment on above: Take by mouth once d aily. naproxen sodium 220 mg oral tablet (2 sources) Nonsteroidal Anti-inflammatory Drug take 2 tablets by mouth every twelve hours at mealtime naproxen sodium (ALEVE) 220 mg tablet Take 220 mg by mouth twice daily with meals. takes 2 every 12 hours 0 Active Comment on above: Take 220 mg by mouth twice daily with meals. takes 2 every 12 hours oxyCODONE hydrochloride 5 mg oral tablet (1 source) Opioid Agonist Start: End: take 1 tablet by mouth every eight hours as needed for pain Oxycodone 5 mg tablet Discontinued 5 mg PO Q8H as needed for pain 0 June 21, 2022 1:00am June 19, 2023 3:50pm pantoprazole 20 mg delayed release oral tablet (6 sources) Proton Pump Inhibitor Start: 021 End: take 1 tablet by mouth once daily in the morning Pantoprazole 20 mg Tablet,Delayed Release (Dr/Ec) Discontinued 20 mg PO DAILY 90 90 1 April 21, 2021 12:00am November 30, 2022 1:31pm Dyspepsia Epigastric pain Take in a.m. Start: 03-19-2021 End: 04-21-2021 take 2 tablets by mouth twice daily Pantoprazole 20 mg tablet,delayed release (DR/EC) Discontinued 40 mg PO TWICE A DAY 120 30 0 March 19, 2021 12:00am April 21, 2021 10:52am Start: 03-19-2021 End: 04-21-2021 take 40 mg by mouth twice daily Pantoprazole Discontinued 40 MG PO TWICE A DAY 120 30 March 19, 2021 10:52am April 21, 2021 10:52am PARoxetine hydrochloride 10 mg oral tablet (20 sources) Serotonin Reuptake Inhibitor Start: 08-03-2024 End: 01-30-2025 Paroxetine Hcl 10 mg tablet Discontinued 15 mg PO DAILY August 03, 2024 1:00am January 30, 2025 7:00pm Start: 06-19-2023 End: 01-30-2025 take 1 tablet by mouth once daily Paroxetine Hcl 30 mg tablet Discontinued 30 mg PO DAILY June 19, 2023 1:00am January 30, 2025 7:00pm Start: 06-21-2022 End: 06-19-2023 take 1 tablet by mouth once daily Paroxetine Hcl 20 mg tablet Discontinued 20 mg PO DAILY June 21, 2022 1:00am June 19, 2023 3:50pm Start: 04-15-2022 take 3 tablets by [facility] once daily PARoxetine (PAXIL) 10 mg tablet Take 30 mg by mouth once daily. 04/15/2022 Active Start: 04-15-2022 take 1 tablet by jesús once daily PARoxetine (PAXIL) 10 mg tablet Take 10 mg by mouth once daily. 0 04/15/2022 Active Comment on above: Take 10 mg by mouth once daily. Take 30 mg by mouth once daily. 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 after breakfast, adjust dose as instructed Start: 04-07-2021 take 1 dose by mouth once daily after breakfast Prednisone Active 100 MG PO DAILY 300 April 07, 2021 2:04pm Take in a.m. after breakfast, adjust dose as instructed Start: 03-19-2021 End: 04-07-2021 take 5 tablets by mouth at breakfast Prednisone 20 mg Tablet Discontinued 100 mg PO WITH BREAKFAST 70 14 0 March 19, 2021 12:00am April 07, 2021 2:04pm Start: 03-19-2021 End: 04-07-2021 take 100 mg by mouth at breakfast Prednisone Discontinued 100 MG PO WITH BREAKFAST 70 14 March 19, 2021 10:50am April 07, 2021 2:04pm Start: 12-16-2018 take 1 tablet by jesús th once daily predniSONE (DELTASONE) 20 mg tablet Indications: Hidradenitis suppurativa Take 1 tablet by mouth once daily. 14 tablet 0 12/16/2018 Active Comment on above: Take 1 tablet by jesús th once daily. rivaroxaban 20 mg oral tablet (20 sources) Factor Xa Inhibitor Start: End: take 1 tablet by mouth once daily at dinner Rivaroxaban (Xarelto) 20 mg Tablet Discontinued 20 mg PO DAILY 30 June 16, 2021 1:00am November 30, 2022 1:31pm Deep vein thrombosis (DVT) of lower extremity must administer with evening meal Start: 05-05-2021 End: 06-16-2021 Rivaroxaban (Xarelto Dvt-Pe Treat 30d Start) 15 mg (42)- 20 mg (9) Tablets,Dose Pack Discontinued 0 .ROUTE .COMPLEX May 05, 2021 11:11am June 16, 2021 12:49pm Take one-15 mg tablet twice daily for 21 days, then one-20 mg tablet once daily; must take with meal/food Start: 05-05-2021 End: 06-16-2021 Rivaroxaban (Xarelto Dvt-Pe Treat 30d Start) 15 mg (42)- 20 mg (9) Tablets,Dose Pack Discontinued 0 .ROUTE .COMPLEX 1 0 May 05, 2021 12:00am June 16, 2021 12:49pm Chronic deep vein thrombosis (DVT) of left lower extremity Take one-15 mg tablet twice daily for 21 days, then one-20 mg tablet once daily; must take with meal/food Start: 05-05-2021 End: 06-16-2021 Rivaroxaban (Xarelto Dvt-Pe Treat 30d Start) 15 mg (42)- 20 mg (9) Tablets,Dose Pack Discontinued 0 .ROUTE .COMPLEX 1 May 05, 2021 12:00am June 16, 2021 12:49pm Take one-15 mg tablet twice daily for 21 days, then one-20 mg tablet once daily; must take with meal/food take 10 mg by mouth once daily r ivaroxaban (XARELTO) 20 mg tablet Take 10 mg by mouth once daily. 0 Active Comment on above: Take 10 mg by mouth once daily. temazepam 15 mg oral capsule (20 sources) Benzodiazepine Start: 5 End: 5 take 1 capsule by mouth at bedtime Temazepam (Restoril) 15 mg capsule Discontinued 15 mg PO AT BEDTIME August 03, 2024 1:00am January 30, 2025 7:01pm Start: 06-21-2022 End: 06-19-2023 take 15 mg by mouth once daily at bedtime temazepam (RESTORIL) 15 mg Take 15 mg by mouth daily at bedtime. 05/22/2023 Active Comment on above: Take 15 mg by mouth daily at bedtime. zinc gluconate 100 mg oral tablet (2 sources) Start: 12-16-2018 take 1 tablet by mouth once daily Zinc Gluconate 100 mg tab Indications: Hidradenitis suppurativa Take 1 tablet by mouth once daily. 30 tablet 5 12/16/2018 Active Comment on above: Take 1 tablet by jesús th once daily. Problems Active Problems Problem Classification Problem Date Documented Da te Episodic/Chronic Adjustment disorders (20 sources) Reactive depression (situational); Translations: [Adjustment disorder with depressed mood] Onset: 9 07-18-2018 Chronic Administrative/social admission (20 sources) Patient encounter status; Translations: [Counseling, unspecified] Onset: 7 Episodic Allergic reactions (3 sources) Eczema of lower limb; Translations: [Dermatitis, unspecified] 07-19-2016 Episodic Cardiac dysrhythmias (20 sources) Atrial fibrillation; Translations: [Unspecified atrial fibrillation] Onset: 2 04-20-2022 Chronic Chronic ulcer of skin (6 sources) Non-pressure chronic ulcer of other part of right foot with fat layer exposed; Translations: [Ulcer of right foot with fat layer exposed] 08-23-2016 Chronic Conduction disorders (1 source) Second degree atrioventricular block; Translations: [Atrioventricular block, second degree] 03-11-2024 Chronic Congestive heart failure; nonhypertensive (20 sources) Acute diastolic heart failure; Translations: [Acute diastolic (congestive) heart failure] Onset: 2 Resolved: 2 02-16-2022 Chronic Deficiency and other anemia (17 sources) 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; 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] Chronic Deficiency and other anemia (3 sources) Iron deficiency anemia due to blood loss; Translations: [Iron deficiency anemia secondary to blood loss (chronic)] 03-25-2021 Chronic Deficiency and other anemia (20 sources) Anemia of chronic disease; Translations: [Anemia in other chronic diseases classified elsewhere] Onset: 7 12-20-2016 Chronic Deficiency and other anemia (17 sources) Anemia in other chronic diseases classified elsewhere; Translations: [Anemia of other chronic disease] Onset: 4 Chronic Deficiency and other anemia (16 sources) Iron deficiency anemia secondary to blood loss (chronic); Translations: [Iron deficiency anemia secondary to blood loss (chronic)] Onset: 4 Chronic Deficiency and other anemia (1 source) Drug-induced autoimmune hemolytic anemia; Translations: [Drug-induced autoimmune hemolytic anemia] Onset: 4 Chronic Deficiency and other anemia (3 sources) Macrocytic anemia; Translations: [Nutritional anemia, unspecified] 03-17-2021 Episodic Deficiency and other anemia (3 sources) Anemia; Translations: [Anemia, unspecified] 03-30-2021 Episodic Deficiency and other anemia (1 source) Deficiency and other anemia; Translations: [Other autoimmune hemolytic anemia] Onset: 4 Diseases of white blood cells (20 sources) Leukocytosis; Translations: [Elevated white blood cell count, unspecified] Onset: 2 04-20-2022 Chronic Disorders of lipid metabolism (20 sources) Hyperlipidemia; Translations: [Hyperlipidemia, unspecified] Onset: 2 03-17-2022 Chronic Essential hypertension (20 sources) Essential hypertension; Translations: [Essential (primary) hypertension] Onset: 2 07-18-2018 Chronic Fever of unknown origin (1 source) Fever; Translations: [Fever, unspecified] 08-12-2024 Episodic Leukemias (20 sources) Chronic lymphoid leukemia, disease; Translations: [Chronic lymphocytic leukemia of B-cell type not having achieved remission] Onset: 1 Chronic Leukemias (5 sources) History of chronic lymphocytic leukemia; Translations: [Personal history of leukemia] Onset: 4 Episodic Malaise and fatigue (3 sources) Asthenia; Translations: [Weakness] 03-27-2021 Episodic Nutritional deficiencies (5 sources) Undernutrition; Translations: [Unspecified protein-calorie malnutrition] Chronic Other circulatory disease (2 sources) Vasculitis of the skin; Translations: [Arteritis, unspecified] Chronic Other circulatory disease (3 sources) H/O: heart failure; Translations: [Personal history of other diseases of the circulatory system] 03-30-2021 Episodic Other circulatory disease (1 source) Personal history of other diseases of the circulatory system; Translations: [Personal history of other diseases of circulatory system] Episodic Other diseases of veins and lymphatics (3 sources) Venous insufficiency of leg; Translations: [Venous insufficiency (chronic) (peripheral)] 07-19-2016 Episodic Other diseases of veins and lymphatics (2 sources) Stasis dermatitis; Translations: [Venous insufficiency (chronic) (peripheral)] 04-22-2024 Episodic Other infections; including parasitic (3 sources) History of hepatitis B; Translations: [Personal history of other infectious and parasitic diseases] 04-07-2021 Episodic Comment on above: Evaluation in 2020 showed no evidence for chronic hepatitis B or C Other infections; including parasitic (2 sources) Personal history of other infectious and parasitic diseases; Translations: [Personal history of other infectious and parasitic diseases] Episodic Other inflammatory condition of skin (1 source) Pruritus, unspecified; Translations: [Unspecified pruritic disorder] 07-15-2024 Episodic Other inflammatory condition of skin (1 source) Vasculitis of the skin; Translations: [Vasculitis limited to the skin, unspecified] 08-02-2016 Episodic Other lower respiratory disease (4 sources) Dyspnea on exertion; Translations: [Dyspnea, unspecified] 03-27-2021 Episodic Other lower respiratory disease (1 source) Shortness of breath; Translations: [Shortness of breath] Onset: 5 Episodic Other nervous system disorders (2 sources) Skin sensation disturbance; Translations: [Unspecified disturbances of skin sensation] 06-30-2024 Episodic Other nutritional; endocrine; and metabolic disorders (20 sources) Cholesterol level - finding; Translations: [Lipoprotein deficiency] Onset: 8 07-17-2017 Chronic Other nutritional; endocrine; and metabolic disorders (18 sources) Obese class I; Translations: [Obesity, unspecified] Onset: 4 02-13-2024 Chronic Other skin disorders (3 sources) Fistula of buttock; Translations: [Other specified disorders of the skin and subcutaneous tissue] 04-15-2021 Episodic Other skin disorders (4 sources) Personal history of diseases of the skin and subcutaneous tissue; Translations: [Healed ulcer of right foot on examination] Onset: 4 08-23-2016 Episodic Other skin disorders (20 sources) Hidradenitis; Translations: [Hidradenitis suppurativa] Onset: 7 12-20-2016 Episodic Other skin disorders (4 sources) Other specified disorders of the skin and subcutaneous tissue; Translations: [Unspecified local infection of skin and subcutaneous tissue] Episodic Other skin disorders (20 sources) Hidradenitis suppurativa; Translations: [Hidradenitis suppurativa] Onset: 7 03-17-2017 Episodic Other skin disorders (2 sources) Perifolliculitis capitis abscedens et suffodiens; Translations: [Perifolliculitis capitis abscedens] 02-15-2024 Episodic Other skin disorders (2 sources) Hyperpigmentation of skin; Translations: [Disorder of pigmentation, unspecified] 05-14-2024 Episodic Other skin disorders (1 source) Disorder of pigmentation; Translations: [Disorder of pigmentation, unspecified] 06-30-2024 Episodic Phlebitis; thrombophlebitis and thromboembolism (1 source) Chronic embolism and thrombosis of unspecified deep veins of left lower extremity; Translations: [Chronic embolism and thrombosis of unspecified deep veins of left lower extremity] Onset: Chronic Phlebitis; thrombophlebitis and thromboembolism (17 sources) Deep venous thrombosis of lower extremity; Translations: [Acute embolism and thrombosis of unspecified deep veins of unspecified lower extremity] Episodic Residual codes; unclassified (3 sources) Bilateral lower limb edema; Translations: [Localized edema] 01-25-2023 Episodic Residual codes; unclassified (1 source) Peripheral edema; Translations: [Localized edema] 07-15-2024 Episodic Substance-related disorders (20 sources) Smoker; Translations: [Nicotine dependence, unspecified, uncomplicated] Onset: 12-20-2016 Chronic Unclassified (1 source) OPENED IN ERROR [ (ICD-9-CM)] Unclassified (1 source) NO SHOW 04-01-2024 Past or Other Problems Problem Classification Problem Date Documented Date Episodic/Chronic Cardiac dysrhythmias (20 sources) Sinus bradycardia; Translations: [Bradycardia, unspecified] Onset: 02-11-2024 02-13-2024 Episodic Deficiency and other anemia (20 sources) Iron deficiency anemia; Translations: [Iron deficiency anemia, unspecified] Onset: 12-20-2016 03-17-2017 Episodic Deficiency and other anemia (20 sources) Anemia due to multiple mechanisms; Translations: [Other specified anemias] Onset: 03-17-2022 03-17-2022 Episodic Deficiency and other anemia (1 source) Anemia, unspecified; Translations: [Anemia, unspecified] Onset: 03-21-2024 Episodic Deficiency and other anemia (1 source) Nutritional anemia, unspecified; Translations: [Nutritional anemia, unspecified] Onset: 03-21-2024 Episodic Lymphadenitis (20 sources) Inguinal lymphadenopathy; Translations: [Localized enlarged lymph nodes] Onset: 04-19-2022 04-19-2022 Episodic Nonspecific chest pain (20 sources) Chest pain; Translations: [Chest pain, unspecified] Onset: 01-23-2022 Resolved: 02-16-2022 02-16-2022 Episodic Open wounds of head; neck; and trunk (20 sources) Finding of sacral region; Translations: [Unspecified open wound of lower back and pelvis without penetration into retroperitoneum, initial encounter] Onset: 03-17-2022 04-20-2022 Episodic Other connective tissue disease (1 source) Other specified soft tissue disorders; Translations: [Swelling of lower extremity] Onset: 02-02-2024 Episodic Other diseases of veins and lymphatics (15 sources) Venous insufficiency (chronic) (peripheral); Translations: [Venous (peripheral) insufficiency, unspecified] Onset: 12-17-2023 Episodic Other liver diseases (20 sources) Hepatosplenomegaly; Translations: [Hepatomegaly with splenomegaly, not elsewhere classified] Onset: 04-19-2022 04-19-2022 Episodic Other nervous system disorders (20 sources) Numbness of finger; Translations: [Anesthesia of skin] Onset: 01-15-2018 01-15-2018 Episodic Other nervous system disorders (1 source) Unspecified disturbances of skin sensation; Translations: [Disturbance of skin sensation] Onset: 06-30-2024 Episodic Other skin disorders (6 sources) Hidradenitis suppurativa; Translations: [Hidradenitis] Onset: 04-25-2022 Episodic Other skin disorders (20 sources) Hidradenitis suppurativa of anus; Translations: [Hidradenitis suppurativa] Onset: 06-07-2023 06-07-2023 Episodic Other skin disorders (20 sources) Eruption; Translations: [Rash and other nonspecific skin eruption] Onset: 02-11-2024 02-13-2024 Episodic Other skin disorders (2 sources) Disorder of pigmentation, unspecified; Translations: [Dyschromia] Onset: 05-14-2024 Episodic Other skin disorders (1 source) Rash and other nonspecific skin eruption; Translations: [Rash and nonspecific skin eruption] Onset: 02-13-2024 Episodic Residual codes; unclassified (14 sources) Localized edema; Translations: [Edema] Onset: 02-09-2024 Episodic Residual codes; unclassified (20 sources) Noncompliance with treatment; Translations: [Patient's noncompliance with other medical treatment and regimen] Onset: 03-17-2017 03-17-2017 Episodic Residual codes; unclassified (18 sources) Altered mental status; Translations: [Altered mental status, unspecified] Onset: 02-10-2024 02-10-2024 Episodic Residual codes; unclassified (18 sources) Bilateral lower leg edema; Translations: [Localized edema] Onset: 02-10-2024 02-10-2024 Episodic Residual codes; unclassified (1 source) Disorientation, unspecified; Translations: [Confusion] Onset: 02-09-2024 Episodic Skin and subcutaneous tissue infections (20 sources) Cellulitis of buttock; Translations: [Cellulitis of buttock] Onset: 04-19-2022 04-19-2022 Episodic Results Test Name Value Interpretation Reference Range Facility Absolute lymphocyte countOrd ered By: Oliver Judge on 01-30-2025 Lymphocytes Auto (Unsp spec) [#/Vol] 0.83 10*3/uL 0.83-4.51 [facility] Absolute neutrophil countOrd ered By: Oliver Judge on 01-30-2025 Neutrophils (Bld) [#/Vol] 16.3 10*3/uL High 2.0-7.7 [facility] Activated partial thrombopla stin time (aPTT) in platelet poor plasma by coagulation aOrdered By: Oliver Judge on 01-30-2025 aPTT Coag (PPP) [Time] 32.1 s 24.1-36.2 [facility] Anion gap in Serum or Plasma Ordered By: Oliver Judge on 01-30-2025 Anion gap [Moles/Vol] 12 mmol/L 5-15 [facility] Automated lymphocyte count a s percentage of total leukocytesOrdered By: Oliver Judge on 01-30-2025 Lymphocytes/100 WBC Auto (Unsp spec) 4.6 % Low 19-41 [facility] BUN/creatinine ratioOrdered By: Oliver Judge on 01-30-2025 Urea nitrogen/Creatinine [Mass ratio] 16.7 mg/mg 10-20 [facility] Basophil percentageOrdered B y: Oliver Judge on 01-30-2025 Basophils/100 WBC (Bld) 0.2 % 0-1 [facility] Bilirubin, totalOrdered By: Oliver Judge on 01-30-2025 Bilirubin [Mass/Vol] 0.80 mg/dL 0.00-1.30 [facility] Carbon dioxide, total [Moles /volume] in Central venous bloodOrdered By: Oliver Judge on 01-30-2025 CO2 [Moles/Vol] 22.9 mmol/L 21.0-32.0 [facility] Chloride assayOrdered By: Duran Judge on 01-30-2025 Chloride [Moles/Vol] 98 mmol/L 98-108 [facility] Eosinophil percentageOrdered By: Oliver Judge on 01-30-2025 Eosinophils/100 WBC (Bld) 0.3 % 0-5 [facility] Erythrocyte distribution wid th ratioOrdered By: Oliver Judge on 01-30-2025 Erythrocyte distribution width (RBC) [Ratio] 17.1 % High 11.6-14.6 [facility] Erythrocyte distribution wid th standard deviationOrdered By: Oliver Chicas on 01-30-2025 Erythrocyte distribution width (RBC) [Ratio] 43.9 fl 35.1-43.9 [facility] Glomerular filtration rate ( GFR) estimation/1.73 sq m using serum, plasma, or whole bOrdered By: Oliver Judge on 01-30-2025 GFR/1.73 sq M.predicted among non-blacks MDRD (S/P/Bld) [Vol rate/Area] 55 mL/min/{1.73_m2} Low >60 [facility] Comment on above: mL/min/1.73m2 CKD-EP I Creatinine Equation (2020) Hematocrit Auto (Bld) [Volum e fraction]Ordered By: Oliver Judge on 01-30-2025 Hematocrit (Bld) [Volume fraction] 36.5 % Low 40-54 [facility] Hemoglobin measurementOrdere d By: Oliver Judge on 01-30-2025 Hemoglobin (Bld) [Mass/Vol] 11.3 g/dL Low 13.0-16.5 [facility] Immature granulocytes/100 WB C Auto (Bld)Ordered By: Oliver Judge on 01-30-2025 Immature granulocytes/100 WBC (Bld) 0.700 % 0.0-0.9 [facility] Comment on above: IG% - Immature Granu locytes (promyelocytes, myelocytes and metamyelocytes) > 1% indicates that a LEFT SHIFT is Present. International normalized rat io (INR) calculationOrdered By: Oliver Judge on 01-30-2025 INR Coag (Bld) [Relative time] 1.3 {INR} [facility] Iron measurement (mass/mass) Ordered By: Oliver Judge on 01-30-2025 Iron (Unsp spec) [Mass/Mass] 10 ug/dL Low 65-175 [facility] Laboratory - Chemistry and C hemistry - challengeOrdered By: Oliver Judge on 01-30-2025 AST [Catalytic activity/Vol] 19 U/L <38 [facility] Lactic acid measurementOrder ed By: Oliver Judge on 01-30-2025 Lactate [Moles/Vol] 1.9 mmol/L 0.0-2.0 [facility] MCV (mean corpuscular volume ) determinationOrdered By: Oliver Judge on 01-30-2025 MCV (RBC) [Entitic vol] 72.9 fL Low 80-94 [facility] Mean corpuscular hemoglobin (MCH) determinationOrdered By: Oliver Judge on 01-30-2025 MCH (RBC) [Entitic mass] 22.6 pg Low 27.0-32.0 [facility] Mean corpuscular hemoglobin concentration (MCHC) determinationOrdered By: Oliver Judge on 01-30-2025 MCHC (RBC) [Mass/Vol] 31.0 g/dL Low 32-36 [facility] Mean platelet volume determi nationOrdered By: Oliver Judge on 01-30-2025 Platelet mean volume (Bld) [Entitic vol] 12.3 fL High 6.2-12.0 [facility] Monocyte percentageOrdered B y: Oliver Judge on 01-30-2025 Monocytes/100 WBC (Bld) 3.7 % 0-10 [facility] Natriuretic peptide.B prohor jitendra N-Terminal [Mass/volume] in Serum or PlasmaOrdered By: Oliver Judge on 01-30-2025 Natriuretic peptide.B prohormone N-Terminal [Mass/Vol] 506 pg/mL <900 [facility] Comment on above: Heart Failure Unlike ly: < 300 pg/mLHeart Failure Likely< 50 Years: > 450 pg/mL50-75 Years: > 900 pg/mL>75 Years: > 1800 pg/mL Neutrophil percentageOrdered By: Oliver Judge on 01-30-2025 Neutrophils/100 WBC (Bld) 90.5 % High 47-70 [facility] No Panel InformationOrdered By: Oliver Judge on 01-30-2025 Unsaturated Iron Binding Capacity 236 ug/dL 228-428 [facility] Nucleated red blood cell per centageOrdered By: Oliver Judge on 01-30-2025 Nucleated RBC/100 WBC (Bld) [Ratio] 0 % 0-5 [facility] Platelet countOrdered By: Duran Judge on 01-30-2025 Platelets (Bld) [#/Vol] 189 10*3/uL 150-450 [facility] Potassium measurement (mass/ volume)Ordered By: Oliver Judge on 01-30-2025 Potassium (Unsp spec) [Mass/Vol] 4.3 mmol/L 3.3-5.1 [facility] Prothrombin timeOrdered By: Oliver Judge on 01-30-2025 PT Coag (PPP) [Time] 16.4 s High 11.7-14.9 [facility] RBC Auto (Bld) [#/Vol]Ordere d By: Oliver Judge on 01-30-2025 RBC (Bld) [#/Vol] 5.01 10*6/uL 4.6-6.2 [facility] Serum creatinine measurement (mass/volume)Ordered By: Olievr Judge on 01-30-2025 Creatinine [Mass/Vol] 1.41 mg/dL High 0.70-1.20 [facility] Serum globulin measurementOr dered By: Oliver Judge on 01-30-2025 Globulin (S) [Mass/Vol] 3.2 g/dL 2.2-4.2 [facility] Serum glucose measurement (m ass/volume)Ordered By: Oliver Judge on 01-30-2025 Glucose [Mass/Vol] 106 mg/dL High 70-99 [facility] Serum or plasma alanine nelson otransferase (ALT) measurementOrdered By: Oliver Judge on 01-30-2025 ALT [Catalytic activity/Vol] 8 U/L <47 [facility] Serum or plasma albumin martha urement (mass/volume)Ordered By: Oliver Chicas on 01-30-2025 Albumin [Mass/Vol] 3.3 g/dL Low 3.4-4.8 [facility] Serum or plasma albumin/glob ulin mass ratioOrdered By: Oliver Judge on 01-30-2025 Albumin/Globulin [Mass ratio] 1.0 {ratio} 0.9-2.4 [facility] Serum or plasma alkaline cristina sphatase measurementOrdered By: Oliver Judge on 01-30-2025 ALP [Catalytic activity/Vol] 110 U/L 40-129 [facility] Serum or plasma calcium martha urement (mass/volume)Ordered By: Oliver Chicas on 01-30-2025 Calcium [Mass/Vol] 8.5 mg/dL 7.6-11.0 [facility] Serum or plasma iron saturat ion measurement (mass fraction)Ordered By: Oliver Judge on 01-30-2025 Iron saturation [Mass fraction] 4.0 % Low 9-55 [facility] Serum or plasma urea nitroge n measurement (mass/volume)Ordered By: Oliver Judge on 01-30-2025 Urea nitrogen [Mass/Vol] 24 mg/dL High 4-19 [facility] Sodium levelOrdered By: Sanchez Judge on 01-30-2025 Sodium [Moles/Vol] 133 mmol/L 133-145 [facility] Total proteinOrdered By: Marcelino Judge on 01-30-2025 Protein [Mass/Vol] 6.5 g/dL 5.9-8.4 [facility] Troponin T.cardiac [Mass/vol ume] in Serum or Plasma by High sensitivity methodOrdered By: Oliver Judge on 01-30-2025 Troponin T.cardiac High sensitivity method [Mass/Vol] 33 ng/L High <22 [facility] Troponin T.cardiac High sensitivity method [Mass/Vol] 34 ng/L High <22 [facility] White blood cell (WBC) count Ordered By: Oliver Judge on 01-30-2025 WBC (Bld) [#/Vol] 18.0 10*3/uL High 4.4-11.0 [facility] CBC W Auto Differential pane l (Bld)on 10-10-2024 Basophils (Bld) [#/Vol] 0.08 10*3/uL Normal <0.11 [facility] Comment on above: Order Comment: Speci men Type: BLOOD SPECIMEN Ordering Facility: [facility] Address: [address] [place] [address] Performed By: #### 5 7021-8 #### [facility] CLIA [id number] [address] [place] [address] [place] Basophils/100 WBC (Bld) 0.6 % Normal [facility] Comment on above: Order Comment: Speci men Type: BLOOD SPECIMEN Ordering Facility: [facility] Address: [address] [place] [address] Performed By: #### 5 7021-8 #### [facility] CLIA [id number] [address] [place] [address] [place] Differential cell count method Nom (Bld) Auto Normal [facility] Comment on above: Order Comment: Speci men Type: BLOOD SPECIMEN Ordering Facility: [facility] Address: [address] [place] [address] Performed By: #### 5 7021-8 #### [facility] CLIA [id number] [address] [place] [address] [place] Eosinophils (Bld) [#/Vol] 0.39 10*3/uL Normal <0.46 [facility] Comment on above: Order Comment: Speci men Type: BLOOD SPECIMEN Ordering Facility: [facility] Address: [address] [place] [address] Performed By: #### 5 7021-8 #### [facility] CLIA [id number] [address] [place] [address] [place] Eosinophils/100 WBC (Bld) 3.1 % Normal [facility] Comment on above: Order Comment: Speci men Type: BLOOD SPECIMEN Ordering Facility: [facility] Address: [address] [place] [address] Performed By: #### 5 7021-8 #### [facility] CLIA [id number] [address] [place] [address] [place] Erythrocyte distribution width (RBC) [Ratio] 15.2 % High 11.5-15.0 [facility] Comment on above: Order Comment: Speci men Type: BLOOD SPECIMEN Ordering Facility: [facility] Address: [address] [place] [address] Performed By: #### 5 7021-8 #### [facility] CLIA [id number] [address] [place] [address] [place] Hematocrit (Bld) [Volume fraction] 38.6 % Low 39.0-51.0 [facility] Comment on above: Order Comment: Speci men Type: BLOOD SPECIMEN Ordering Facility: [facility] Address: [address] [place] [address] Performed By: #### 5 7021-8 #### [facility] CLIA [id number] [address] [place] [address] [place] Hemoglobin (Bld) [Mass/Vol] 11.6 g/dL Low 13.0-17.0 [facility] Comment on above: Order Comment: Speci men Type: BLOOD SPECIMEN Ordering Facility: [facility] Address: [address] [place] [address] Performed By: #### 5 7021-8 #### [facility] CLIA [id number] [address] [place] [address] [place] Immature granulocytes (Bld) [#/Vol] 0.09 10*3/uL Normal <0.10 [facility] Comment on above: Order Comment: Speci men Type: BLOOD SPECIMEN Ordering Facility: [facility] Address: [address] [place] [address] Performed By: #### 5 7021-8 #### [facility] CLIA [id number] [address] [place] [address] [place] Immature granulocytes/100 WBC (Bld) 0.7 % Normal [facility] Comment on above: Order Comment: Speci men Type: BLOOD SPECIMEN Ordering Facility: [facility] Address: [address] [place] [address] Performed By: #### 5 7021-8 #### [facility] CLIA [id number] [address] [place] [address] [place] Lymphocytes (Bld) [#/Vol] 3.84 10*3/uL Normal 1.00-4.00 [facility] Comment on above: Order Comment: Speci men Type: BLOOD SPECIMEN Ordering Facility: [facility] Address: [address] [place] [address] Performed By: #### 5 7021-8 #### [facility] CLIA [id number] [address] [place] [address] [place] Lymphocytes/100 WBC (Bld) 30.6 % Normal [facility] [facility] [place] Comment on above: Order Comment: Speci men Type: BLOOD SPECIMEN Ordering Facility: [facility] Address: [address] [place] [address] Performed By: #### 5 7021-8 #### [facility] CLIA [id number] [address] [place] [address] MCH (RBC) [Entitic mass] 23.9 pg Low 26.0-34.0 [facility] [place] Comment on above: Order Comment: Speci men Type: BLOOD SPECIMEN Ordering Facility: [facility] Address: [address] [place] [address] Performed By: #### 5 7021-8 #### [facility] CLIA [id number] [address] [place] [address] MCHC (RBC) [Mass/Vol] 30.1 g/dL Low 30.5-36.0 [facility] Comment on above: Order Comment: Speci men Type: BLOOD SPECIMEN Ordering Facility: [facility] Address: [address] [place] [address] Performed By: #### 5 7021-8 #### [facility] CLIA [id number] [address] [place] [address] MCV (RBC) [Entitic vol] 79.4 fL Low 80.0-100.0 [facility] [place] Comment on above: Order Comment: Speci men Type: BLOOD SPECIMEN Ordering Facility: [facility] Address: [address] [place] [address] Performed By: #### 5 7021-8 #### [facility] CLIA [id number] [address] [place] [address] Monocytes (Bld) [#/Vol] 0.86 10*3/uL Normal <0.87 [facility] [place] Comment on above: Order Comment: Speci men Type: BLOOD SPECIMEN Ordering Facility: [facility] Address: [address] [place] [address] Performed By: #### 5 7021-8 #### [facility] CLIA [id number] [address] [place] [address] [place] Monocytes/100 WBC (Bld) 6.9 % Normal [facility] [place] Comment on above: Order Comment: Speci men Type: BLOOD SPECIMEN Ordering Facility: [facility] Address: [address] [place] [address] Performed By: #### 5 7021-8 #### [facility] CLIA [id number] [address] [place] [address] [place] Neutrophils (Bld) [#/Vol] 7.28 10*3/uL Normal 1.45-7.50 [facility] [place] Comment on above: Order Comment: Speci men Type: BLOOD SPECIMEN Ordering Facility: [facility] Address: [address] [place] [address] Performed By: #### 5 7021-8 #### [facility] CLIA [id number] [address] [place] [address] [place] Neutrophils/100 WBC (Bld) 58.1 % Normal [facility] [place] Comment on above: Order Comment: Speci men Type: BLOOD SPECIMEN Ordering Facility: [facility] Address: [address] [place] [address] Performed By: #### 5 7021-8 #### [facility] CLIA [id number] [address] [place] [address] [place] Nucleated RBC (Bld) [#/Vol] 10*3/uL Normal <0.01 [facility] [place] Comment on above: Order Comment: Speci men Type: BLOOD SPECIMEN Ordering Facility: [facility] Address: [address] [place] [address] Performed By: #### 5 7021-8 #### [facility] CLIA [id number] [address] [place] [address] [place] Nucleated RBC/100 WBC (Bld) [Ratio] 0.0 /100 WBC Normal [facility] [place] Comment on above: Order Comment: Speci men Type: BLOOD SPECIMEN Ordering Facility: [facility] Address: [address] [place] [address] Performed By: #### 5 7021-8 #### [facility] CLIA [id number] [address] [place], [place] [id number] [place] Platelet mean volume (Bld) [Entitic vol] 10.9 fL Normal 9.0-12.7 [facility] [place] Comment on above: Order Comment: Speci men Type: BLOOD SPECIMEN Ordering Facility: [facility] Address: [address] [place] [address] Performed By: #### 5 7021-8 #### [facility] CLIA [id number] [address] [place] [address] [place] Platelets (Bld) [#/Vol] 281 10*3/uL Normal 150-400 [facility] [place] Comment on above: Order Comment: Speci men Type: BLOOD SPECIMEN Ordering Facility: [facility] Address: [address] [place] [address] Performed By: #### 5 7021-8 #### [facility] CLIA [id number] [address] [place] [address] [place] RBC (Bld) [#/Vol] 4.86 10*6/uL Normal 4.20-6.00 [facility] [place] Comment on above: Order Comment: Speci men Type: BLOOD SPECIMEN Ordering Facility: [facility] Address: [address] [place] [address] Performed By: #### 5 7021-8 #### [facility] CLIA [id number] [address] [place] [address] [place] WBC (Bld) [#/Vol] 12.54 10*3/uL High 3.70-11.00 [facility] Comment on above: Order Comment: Speci men Type: BLOOD SPECIMEN Ordering Facility: [facility] Address: [address] [place] [address] Performed By: #### 5 7021-8 #### [facility] CLIA [id number] [address] [place], [place] [address] [facility] Comprehensive metabolic 2000 panelon 10-10-2024 Albumin [Mass/Vol] 3.3 g/dL Normal 3.2-5.0 [facility] [place] Comment on above: Order Comment: Barney laguna Type: BLOOD SPECIMEN Ordering Facility: [facility] Address: [address] [place] [address] Performed By: #### 2 4321-2 #### [facility] CLIA [id number] [address] [place] [address] [place] ALP [Catalytic activity/Vol] 120 U/L High 45-117 [facility] [place] Comment on above: Order Comment: Barney laguna Type: BLOOD SPECIMEN Ordering Facility: [facility] Address: [address] [place] [address] Performed By: #### 2 4321-2 #### [facility] CLIA [id number] [address] [place] [address] [place] ALT [Catalytic activity/Vol] 9 U/L Low 13-61 [facility] [place] Comment on above: Order Comment: Barney laguna Type: BLOOD SPECIMEN Ordering Facility: [facility] Address: [address] [place] [address] Result Comment: Resu lts may be falsely depressed after the administration of Sulfasalazine and/or Sulfapyridine. Performed By: #### 2 4321-2 #### [facility] CLIA [id number] [address] [place] [address] [place] Anion gap [Moles/Vol] 10 mmol/L Normal 5-16 [facility] Comment on above: Order Comment: Barney laguna Type: BLOOD SPECIMEN Ordering Facility: [facility] Address: [address] [place] [address] Performed By: #### 2 4321-2 #### [facility] CLIA [id number] [address] [place] [address] [place] AST [Catalytic activity/Vol] 15 U/L Normal 8-34 [facility] [place] Comment on above: Order Comment: Barney laguna Type: BLOOD SPECIMEN Ordering Facility: [facility] Address: [address] [place] [address] Result Comment: Resu lts may be falsely depressed after the administration of Sulfasalazine and/or Sulfapyridine. Performed By: #### 2 4321-2 #### [facility] CLIA [id number] [address] [place] [address] [place] Bilirubin [Mass/Vol] 0.5 mg/dL Normal 0.2-1.0 [facility] Comment on above: Order Comment: Speci men Type: BLOOD SPECIMEN Ordering Facility: [facility] Address: [address] [place] [address] Performed By: #### 2 4321-2 #### [facility] CLIA [id number] [address] [place] [address] [place] Calcium [Mass/Vol] 9.5 mg/dL Normal 8.5-10.5 [facility] [place] Comment on above: Order Comment: Speci men Type: BLOOD SPECIMEN Ordering Facility: [facility] Address: [address] [place] [address] Performed By: #### 2 4321-2 #### [facility] CLIA [id number] [address] [place] [address] [place] Chloride [Moles/Vol] 102 mmol/L Normal 98-107 [facility] Comment on above: Order Comment: Speci men Type: BLOOD SPECIMEN Ordering Facility: [facility] Address: [address] [place] [address] Performed By: #### 2 4321-2 #### [facility] CLIA [id number] [address] [place] [address] [place] CO2 [Moles/Vol] 26 mmol/L Normal 21-32 [facility] [place] Comment on above: Order Comment: Speci men Type: BLOOD SPECIMEN Ordering Facility: [facility] Address: [address] [place] [address] Performed By: #### 2 4321-2 #### [facility] CLIA [id number] [address] [place] [address] [place] Creatinine [Mass/Vol] 0.84 mg/dL Normal 0.50-1.40 [facility] Comment on above: Order Comment: Barney laguna Type: BLOOD SPECIMEN Ordering Facility: [facility] Address: [address] [place] [address] Result Comment: Ainsley ents receiving either N-Acetylcysteine (NAC) or Metamizole prior to venipuncture, may have falsely depressed results. Performed By: #### 2 4321-2 #### [facility] CLIA [id number] [address] [place] [address] [place] [facility] [place] Creatinine and Glomerular filtration rate.predicted panel (S/P/Bld) 96 mL/min/1.73m??? Normal >=60 [facility] [place] Comment on above: Order Comment: Barney laguna Type: BLOOD SPECIMEN Ordering Facility: [facility] Address: [address] [place] [address] Result Comment: Bhargavi mated Glomerular Filtration Rate (eGFR) is calculated using the 2020 CKD-EPI creatinine equation. This equation utilizes serum creatinine, sex, and age as parameters. The creatinine assay has traceable calibration to isotope dilution-mass spectrometry. Refer to KDIGO guidelines for clinical interpretation. In patients with unstable renal function, e.g. those with acute kidney injury, the eGFR may not accurately reflect actual GFR. Performed By: #### 2 4321-2 #### [facility] CLIA [id number] [address] [place] [address] [place] Glucose [Mass/Vol] 94 mg/dL Normal 70-100 [facility] [place] Comment on above: Order Comment: Barney laguna Type: BLOOD SPECIMEN Ordering Facility: [facility] Address: [address] [place] [address] Result Comment: The [place] [employer] (ADA) provides guidance for cutoff values for fasting glucose and random glucose. The ADA defines fasting as no caloric intake for at least 8 hours. Fasting plasma glucose results between 100 to 125 mg/dL indicate increased risk for diabetes (prediabetes). Fasting plasma glucose results greater than or equal to 126 mg/dL meet the criteria for diagnosis of diabetes. In the absence of unequivocal hyperglycemia, results should be confirmed by repeat testing. In a patient with classic symptoms of hyperglycemia or hyperglycemic crisis, random plasma glucose results greater than or equal to 200 mg/dL meet the criteria for diagnosis of diabetes. Reference: Standards of Medical Care in Diabetes 2016, [place] [employer]. Diabetes Care. 2016.39(Suppl 1). Results may be falsely elevated after the administration of Sulfapyridine. Results may be falsely depressed after the administration of Sulfasalazine. Performed By: #### 2 4321-2 #### [facility] CLIA [id number] [address] [place] [address] [place] Potassium [Moles/Vol] 3.1 mmol/L Low 3.5-5.1 [facility] Comment on above: Order Comment: Barney laguna Type: BLOOD SPECIMEN Ordering Facility: [facility] Address: [address] [place] [address] Performed By: #### 2 4321-2 #### [facility] CLIA [id number] [address] [place] [address] [place] Protein [Mass/Vol] 6.6 g/dL Normal 6.0-8.5 [facility] [place] Comment on above: Order Comment: Barney laguna Type: BLOOD SPECIMEN Ordering Facility: [facility] Address: [address] [place] [address] Performed By: #### 2 4321-2 #### [facility] CLIA [id number] [address] [place] [address] [place] Sodium [Moles/Vol] 138 mmol/L Normal 136-145 [facility] [place] Comment on above: Order Comment: Barney laguna Type: BLOOD SPECIMEN Ordering Facility: [facility] Address: [address] [place] [address] Performed By: #### 2 4321-2 #### [facility] CLIA [id number] [address] [place] [address] [place] Urea nitrogen [Mass/Vol] 19 mg/dL Normal 7-26 [facility] [place] Comment on above: Order Comment: Speci men Type: BLOOD SPECIMEN Ordering Facility: [facility] Address: [address] [place] [address], [address], [place] [address] Performed By: #### 2 4321-2 #### [facility] CLIA [id number] [address] [place] [address] [place] Culture, Blood (WB)on 2024 CUB Blood cultures x2, f rom two different sites No growth in 5 days. Normal [facility] Comment on above: Performed By: #### M 100.678, M100.2200, L400.0001 #### [facility] [address] [place], [address] Urine Cultureon 08-06-2024 URC Mixed Gram Positive Organisms Dumas Count 11,000-25,000 MIXC Mixed contaminants. Submit a new specimen if indicated. Normal [facility] Comment on above: Performed By: #### M 100.678, M100.2200, L400.0001 #### [facility] [address] [place], [address] CBC W/Diff, Automatedon Absolute Neut Normal 2.0-7.7 [facility] Comment on above: Result Comment: PER BASHIR MCCANN DUPLICATE- PT IS JUST WAITING FOR RIDE Performed By: #### L 100.0100 #### [facility] [address] [place], [address] HCT Normal 40-54 [facility] Comment on above: Result Comment: PER BASHIR MCCANN DUPLICATE- PT IS JUST WAITING FOR RIDE Performed By: #### L 100.0100 #### [facility] [address] [place], [address] HGB Normal 13.0-16.5 [facility] Comment on above: Result Comment: PER BASHIR MCCANN DUPLICATE- PT IS JUST WAITING FOR RIDE Performed By: #### L 100.0100 #### [facility] [address] [place], [address] MCH Normal 27.0-32.0 [facility] Comment on above: Result Comment: PER SIOBHANRN DUPLICATE- PT IS JUST WAITING FOR RIDE Performed By: #### L 100.0100 #### [facility] [address] [place], [address] MCHC Normal 32-36 [facility] Comment on above: Result Comment: PER SIOBHANRN DUPLICATE- PT IS JUST WAITING FOR RIDE Performed By: #### L 100.0100 #### [facility] [address] [place], [address] MCV Normal 80-94 [facility] Comment on above: Result Comment: PER SIOBHANRN DUPLICATE- PT IS JUST WAITING FOR RIDE Performed By: #### L 100.0100 #### [facility] [address] [place], [address] NEUT% Normal 47-70 [facility] Comment on above: Result Comment: PER SIOBHANRN DUPLICATE- PT IS JUST WAITING FOR RIDE Performed By: #### L 100.0100 #### [facility] [address] [place], [address] PLT Normal 150-450 [facility] Comment on above: Result Comment: PER SIOBHANRN DUPLICATE- PT IS JUST WAITING FOR RIDE Performed By: #### L 100.0100 #### [facility] [address] [place], [address] RBC Normal 4.6-6.2 [facility] Comment on above: Result Comment: PER SIOBHANRN DUPLICATE- PT IS JUST WAITING FOR RIDE Performed By: #### L 100.0100 #### [facility] [address] [place], [address] RDW CV Normal 11.6-14.6 [facility] Comment on above: Result Comment: PER SIOBHANRN DUPLICATE- PT IS JUST WAITING FOR RIDE Performed By: #### L 100.0100 #### [facility] [address] [place], [address] RDW SD Normal 35.1-43.9 [facility] Comment on above: Result Comment: PER BASHIR MCCANN DUPLICATE- PT IS JUST WAITING FOR RIDE Performed By: #### L 100.0100 #### [facility] [address] [place], [address] WBC Normal 4.4-11.0 [facility] Comment on above: Result Comment: PER BASHIR MCCANN DUPLICATE- PT IS JUST WAITING FOR RIDE Performed By: #### L 100.0100 #### [facility] [address] [place], [address] 12 Lead EKGon 08-03-2024 12 Lead EKG [facility] [address] [place] [address] 12 Lead EKG 08/03/241943 MR#: [id number] Acct: [id number] Name: MARYCRUZ VARGAS Rep #: [id number] : 1960 64 From: Wojciech Chow MD Attending Dr: Status: DEP ER Ordering Dr: Patricia Lucas Date: 08/03/24 Location: ED Sex: M AA Admitted: Test Reason : DYSP Blood Pressure : */* mmHG Vent. Rate : 105 BPM Atrial Rate : 105 BPM P-R Int : 222 ms QRS Dur : 146 ms QT Int : 338 ms P-R-T Axes : 59 -69 53 degrees QTcB Int : 446 ms Sinus tachycardia with 1st degree A-V block Right bundle branch block Left anterior fascicular block Bifascicular block Minimal voltage criteria for LVH, may be normal variant ( R in aVL ) Abnormal ECG Confirmed by WOJCIECH CHOW MD ([id number]), sports editor GERI PICHARDO ([id number]) on 08/04/2024 8:25:43 AM Referred By: Confirmed By: WOJCIECH CHOW MD 08/04/24 0825 Date Wojciech Chow MD CC: Dr. Sapna Hurst DO; Dr. Marlon Michaud MD; ROSHAN Ruiz Signed Normal [facility] BNP,B-Type NATRIURETIC PEPTI Rui 08-03-2024 Natriuretic peptide B (Bld) [Mass/Vol] 20.1 pg/mL Normal 0-100 [facility] Comment on above: Performed By: #### M 100.678, M100.2200, L400.0001 #### [facility] [address] [place], [address] CBC W/Diff, Automatedon Absolute Lymph 0.74 X10 3/uL Low 0.83-4.51 [facility] Comment on above: Performed By: #### M 100.678, M100.2200, L400.0001 #### [facility] [address] [place], [address] Absolute Neut 13.5 X10 3/uL High 2.0-7.7 [facility] Comment on above: Performed By: #### M 100.678, M100.2200, L400.0001 #### [facility] [address] [place], [address] Basophils/100 WBC (Bld) 0.1 % Normal 0-1 [facility] Comment on above: Performed By: #### M 100.678, M100.2200, L400.0001 #### [facility] [address] [place], [address] Eosinophils/100 WBC (Bld) 0.0 % Normal 0-5 [facility] Comment on above: Performed By: #### M 100.678, M100.2200, L400.0001 #### [facility] [address] [place], [address] Erythrocyte distribution width (RBC) [Ratio] 16.2 % High 11.6-14.6 [facility] Comment on above: Performed By: #### M 100.678, M100.2200, L400.0001 #### [facility] [address] [place], [address] Hematocrit (Bld) [Volume fraction] 39.3 % Low 40-54 [facility] Comment on above: Performed By: #### M 100.678, M100.2200, L400.0001 #### [facility] [address] [place], [address] Hemoglobin (Bld) [Mass/Vol] 12.5 g/dL Low 13.0-16.5 [facility] Comment on above: Performed By: #### M 100.678, M100.2200, L400.0001 #### [facility] [address] [place], [address] IG% 0.500 Normal 0.0-0.9 [facility] Comment on above: Result Comment: IG% - Immature Granulocytes (promyelocytes, myelocytes and metamyelocytes) > 1% indicates that a LEFT SHIFT is Present. Performed By: #### M 100.678, M100.2200, L400.0001 #### [facility] [address] [place], [address] Lymphocytes/100 WBC (Bld) 5.0 % Low 19-41 [facility] Comment on above: Performed By: #### M 100.678, M100.2200, L400.0001 #### [facility] [address] [place], [address] MCH (RBC) [Entitic mass] 24.5 pg Low 27.0-32.0 [facility] Comment on above: Performed By: #### M 100.678, M100.2200, L400.0001 #### [facility] [address] [place], [address] MCHC (RBC) [Mass/Vol] 31.8 g/dL Low 32-36 [facility] Comment on above: Performed By: #### M 100.678, M100.2200, L400.0001 #### [facility] [address] [place], [address] MCV (RBC) [Entitic vol] 76.9 fL Low 80-94 [facility] Comment on above: Performed By: #### M 100.678, M100.2200, L400.0001 #### [facility] [address] [place], [address] Monocytes/100 WBC (Bld) 4.2 % Normal 0-10 [facility] Comment on above: Performed By: #### M 100.678, M100.2200, L400.0001 #### [facility] [address] [place], [address] Neutrophils/100 WBC (Bld) 90.2 % High 47-70 [facility] Comment on above: Performed By: #### M 100.678, M100.2200, L400.0001 #### [facility] [address] [place], [address] Nucleated RBC (Bld) [#/Vol] 0 10*3/uL Normal 0-5 [facility] Comment on above: Performed By: #### M 100.678, M100.2200, L400.0001 #### [facility] [address] [place], [address] Platelet mean volume (Bld) [Entitic vol] 11.2 fL Normal 6.2-12.0 [facility] Comment on above: Performed By: #### M 100.678, M100.2200, L400.0001 #### [facility] [address] [place], [address] Platelets (Bld) [#/Vol] 150 10*3/uL Normal 150-450 [facility] Comment on above: Performed By: #### M 100.678, M100.2200, L400.0001 #### [facility] [address] [place], [address] RBC (Bld) [#/Vol] 5.11 10*6/uL Normal 4.6-6.2 [facility] Comment on above: Performed By: #### M 100.678, M100.2200, L400.0001 #### [facility] [address] [place], [address] RDW SD 44.6 fl High 35.1-43.9 [facility] Comment on above: Performed By: #### M 100.678, M100.2200, L400.0001 #### [facility] [address] [place], [address] WBC (Bld) [#/Vol] 14.9 10*3/uL High 4.4-11.0 [facility] Comment on above: Performed By: #### M 100.678, M100.2200, L400.0001 #### [facility] [address] [place], [address] Chest PA and Lateralon 08-03 Chest PA and Lateral [facility] Imaging Services [address] [place] [address] Chest PA and Lateral MR#: [id number] Acct: [id number] Name: MARYCRUZ VARGAS Rep #: [id number] : 1960 M 64 From: John Jean Baptiste MD PCP: Dr. Marlon Michaud MD Status: [facility] ER Study: Chest PA and Lateral Date of Exam: 08/03/24 Exam# [id number] Ordering Dr: Patricia Lucas PROCEDURE: CHEST PA AND LATERAL REASON FOR EXAM: Worsening shortness of breath. Congestive heart failure and leukemia. Bilateral lower leg edema. TECHNIQUE: Frontal and lateral views of the chest. COMPARISON: None. FINDINGS: Lungs are clear of pneumonia and congestion. Old healed granulomatous changes. Discoid atelectasis, left lung base. Blunting of the right lateral and posterior costophrenic angles. Heart and mediastinum are normal. No hilar masses. Bones and soft tissues are unremarkable. RAD/Chest PA and Lateral IMPRESSION: 1. Small right pleural effusion. 2. Discoid atelectasis, left lung base. 3. No pneumonia or congestion. Reading Location: [facility] CC: Dr. Marlon Michaud MD; ROSHAN Ruiz Sock Drier: Signed Normal [facility] Comprehensive Metabolic Prof ilon 08-03-2024 Albumin [Mass/Vol] 3.2 g/dL Normal 3.2-5.0 [facility] Comment on above: Order Comment: CLEAN CATCH Performed By: #### M 100.678, M100.2200, L400.0001 #### [facility] [address] [place], [address] Albumin/Globulin [Mass ratio] 0.8 {ratio} Low 0.9-2.4 [facility] Comment on above: Order Comment: CLEAN CATCH Performed By: #### M 100.678, M100.2200, L400.0001 #### [facility] [address] [place], [address] ALK P 95 U/L Normal 45-117 [facility] Comment on above: Order Comment: CLEAN CATCH Performed By: #### M 100.678, M100.2200, L400.0001 #### [facility] [address] [place], [address] ALT [Catalytic activity/Vol] 16 U/L Normal 16-61 [facility] Comment on above: Order Comment: CLEAN CATCH Performed By: #### M 100.678, M100.2200, L400.0001 #### [facility] [address] [place], [address] AST [Catalytic activity/Vol] 25 U/L Normal 15-37 [facility] Comment on above: Order Comment: CLEAN CATCH Result Comment: Slig ht Hemolysis, Result may be falsely increased. Performed By: #### M 100.678, M100.2200, L400.0001 #### [facility] [address] [place], [address] Bilirubin [Mass/Vol] 0.60 mg/dL Normal 0.20-1.00 [facility] Comment on above: Order Comment: CLEAN CATCH Result Comment: For patients on eltrombopag therapy, use of Dimension Foley TBIL is not recommended. Performed By: #### M 100.678, M100.2200, L400.0001 #### [facility] [address] [place], [address] BUN/CRE 17.6 RATIO Normal 10-20 [facility] Comment on above: Order Comment: CLEAN CATCH Performed By: #### M 100.678, M100.2200, L400.0001 #### [facility] [address] [place], [address] CA,Total 9.1 mg/dL Normal 8.5-10.1 [facility] Comment on above: Order Comment: CLEAN CATCH Performed By: #### M 100.678, M100.2200, L400.0001 #### [facility] [address] [place], [address] Chloride [Moles/Vol] 103 mmol/L Normal 98-107 [facility] Comment on above: Order Comment: CLEAN CATCH Performed By: #### M 100.678, M100.2200, L400.0001 #### [facility] [address] [place], [address] CO2 [Moles/Vol] 25.0 mmol/L Normal 21.0-32.0 [facility] Comment on above: Order Comment: CLEAN CATCH Performed By: #### M 100.678, M100.2200, L400.0001 #### [facility] [address] [place], [address] Creatinine [Mass/Vol] 1.02 mg/dL Normal 0.70-1.30 [facility] Comment on above: Order Comment: CLEAN CATCH Result Comment: The validity of the calculated GFR GFRAA in patients over 70 years has not been determined. Clinical correlation is essential. Performed By: #### M 100.678, M100.2200, L400.0001 #### [facility] [address] [place], [address] ECRCL 104.42 ml/min Normal [facility] Comment on above: Order Comment: CLEAN CATCH Performed By: #### M 100.678, M100.2200, L400.0001 #### [facility] [address] [place], [address] EST GFR - AA 94 mL/min Normal >60 [facility] Comment on above: Order Comment: CLEAN CATCH Result Comment: Afri can Libyan GFR Calc Performed By: #### M 100.678, M100.2200, L400.0001 #### [facility] [address] [place], [address] GAP 9 Normal 5-15 [facility] Comment on above: Order Comment: CLEAN CATCH Performed By: #### M 100.678, M100.2200, L400.0001 #### [facility] [address] [place], [address] GFR/1.73 sq M.predicted among non-blacks MDRD (S/P/Bld) [Vol rate/Area] 78 mL/min/{1.73_m2} Normal >60 [facility] Comment on above: Order Comment: CLEAN CATCH Result Comment: Non- GFR Calc Performed By: #### M 100.678, M100.2200, L400.0001 #### [facility] [address] [place], [address] Globulin (S) [Mass/Vol] 4.1 g/dL Normal 2.2-4.2 [facility] Comment on above: Order Comment: CLEAN CATCH Performed By: #### M 100.678, M100.2200, L400.0001 #### [facility] [address] [place], [address] Glucose [Mass/Vol] 87 mg/dL Normal 74-106 [facility] Comment on above: Order Comment: CLEAN CATCH Performed By: #### M 100.678, M100.2200, L400.0001 #### [facility] [address] [place], [address] Potassium [Moles/Vol] 3.8 mmol/L Normal 3.5-5.1 [facility] Comment on above: Order Comment: CLEAN CATCH Result Comment: Slig ht Hemolysis, Result may be falsely increased. Performed By: #### M 100.678, M100.2200, L400.0001 #### [facility] [address] [place], [address] Sodium [Moles/Vol] 137 mmol/L Normal 136-145 [facility] Comment on above: Order Comment: CLEAN CATCH Performed By: #### M 100.678, M100.2200, L400.0001 #### [facility] [address] [place], [address] T PROT 7.3 g/dL Normal 6.4-8.2 [facility] Comment on above: Order Comment: CLEAN CATCH Performed By: #### M 100.678, M100.2200, L400.0001 #### [facility] [address] [place], [address] Urea nitrogen [Mass/Vol] 18 mg/dL Normal 7-18 [facility] Comment on above: Order Comment: CLEAN CATCH Performed By: #### M 100.678, M100.2200, L400.0001 #### [facility] [address] [place], [address] D-Dimer Quantitative (DVT/PE )on 08-03-2024 D-DIMER QUANT 0.34 FEU/ug/m Normal 0.27-0.49 [facility] Comment on above: Result Comment: NORM AL D-Dimer level (<0.50) indicates no DVT or PE. Performed By: #### M 100.678, M100.2200, L400.0001 #### [facility] [address] [place], [place], [address] Emergency Department Summary on 08-03-2024 Emergency Department Summary [facility] Medical Records Department [address] [facility] [place] [address] Emergency Department Summary 08/03/24 MR#: [id number] Acct: [id number] Name: MARYCRUZ VARGAS Rep #: [id number] : 1960 64 From: Patricia ISLAS PCP: Dr. Marlon Michaud MD Status:DEP ER Location: ED HPI History of Present Illness Chief Complaint: Shortness of Breath Narrative Narrative: 64-year-old male with PMH of CHF, CLL on oral chemotherapy, anemia states over the last 3 days he has had chills and increased dyspnea on exertion. No chest pain. No cough or congestion. No GI symptoms. He states he has significant chronic bilateral lower extremity swelling which has been unchanged for several months. He is on a water pill. He sees Dr. Fisher for his leukemia and has had iron transfusions in the past. He is concerned his symptoms are secondary to anemia. He denies hematemesis or blood in his urine or stool. He is not on blood thinners. 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 Anemia, macrocytic Bilateral lower extremity edema Chronic lymphocytic leukemia Edema, lower extremity Home Medications ???Medication ???Instructions ???Recorded ???Last Taken ???Type folic acid 1 mg tablet 1 mg PO DAILY #100 tabs 04/07/21 U nknown Rx Lactobacillus rhamnosus GG 10 1 cap PO BID 06/21/22 Unknown Hist ory billion cell capsule (Culturelle) acetaminophen 325 mg tablet 325 mg PO Q6H PRN pain 06/21/22 Un known History (Tylenol) calcium carbonate 500 mg PO DAILY 06/21/22 Unknown H istory ergocalciferol (vitamin D2) 1,250 1,250 mcg PO QWEEK 06/21/22 Unkno wn History mcg (50,000 unit) capsule ondansetron HCl 4 mg tablet 4 mg PO Q4H PRN nausea and vomitin g 06/21/22 Unknown History ascorbic acid (vitamin C) 500 mg 500 mg PO .QOD 11/30/22 Unknown Hi story tablet ibrutinib 420 mg tablet 420 mg PO DAILY 11/30/22 Unknown H istory atorvastatin 10 mg tablet 10 mg PO QHS 06/19/23 Unknown Hist ory ketoconazole 2 % shampoo 1 applic topical DAILY PRN dry ski n 06/19/23 Unknown History loperamide 2 mg capsule 2 mg PO Q6H PRN loose stool Unknown History multivitamin 1 tab PO DAILY 06/19/23 Unknown Hi story paroxetine HCl 30 mg tablet 30 mg PO DAILY 06/19/23 Unknown Hi story secukinumab 150 mg/mL subcutaneous 300 mg subcut Q4W 12/11/23 Unkno wn History syringe (Cosentyx) doxycycline hyclate 100 mg tablet 100 mg PO BID #14 tabs 08/03/24 U nknown Rx furosemide 80 mg tablet (Lasix) 80 mg PO DAILY 08/03/24 Unknown Hi story ibrutinib 140 mg capsule 420 mg PO DAILY 08/03/24 Unknown H istory (Imbruvica) levothyroxine 25 mcg capsule 25 mcg PO DAILY 08/03/24 Unknown H istory loratadine 10 mg tablet 10 mg PO DAILY 08/03/24 Unknown Hi story paroxetine HCl 10 mg tablet 15 mg PO DAILY 08/03/24 Unknown Hi story potassium chloride 20 mEq oral 40 meq PO DAILY 08/03/24 Unknown H istory packet temazepam 15 mg capsule (Restoril) 15 mg PO QHS 08/03/24 Unknown Hi story Allergy/AdvReac Type Severity Reaction Status Date / Time No Known Allergies Allergy Verified 08/04/24 00:24 Family History Father Diabetes Mother Hypertension Surgical History H/O foot surgery History of tonsillectomy Social History (Updated 12/11/23 @ 14:52 by Jyoti Main) household members: none Smoking Status: Former smoker second hand exposure: No alcohol intake: current alcohol intake frequency: holidays/special occasions only details: occasionally diet: low salt estelle/baptist: Sabianism seatbelt use: always do you feel safe at home: Yes ROS ROS ED ROS Narrative Constitutional: Positive for chills. Negative for fever. CVS: Negative for palpitations, chest pain, syncope. Respiratory: Positive for shortness of breath. Negative for cough, orthopnea. GI: Negative for abdominal pain, nausea, vomiting, diarrhea, melena, hematochezia. EXAM Physical Exam Narrative Exam Narrative: CONST: Patient sitting in no acute distress. EYES: Normal inspection. NECK: Normal inspection. RESP: No respiratory distress, CTAB. CVS: Regular rate and rhythm, no murmur, no gallop. ABD: Soft and nontender, no guarding or rebound, nondistended. SKIN: Color normal, no rash, warm, dry, intact. EXTREMITIES: Symmetric bilateral lower extremity edema. 2+ DP pulses. Small left lower rodriguez has superficial wound without signs of infection. NEURO: Alert and answering questions appro (more content not included)... Normal [facility] L501.4020on 08-03-2024 TROPONIN-I HS 32 pg/mL Normal 3.0-78.0 [facility] Comment on above: Order Comment: CLEAN CATCH Result Comment: Grant horowitz Note: New Test Units and Gender Specific Reference Ranges. For more information see Policy Stat Procedure Foley High Sensitivity Troponin (TNIH) and attachments. Performed By: #### M 100.678, M100.2200, L400.0001 #### [facility] [address] [place], [place], [id number] [phone] Lactic Acidon 08-03-2024 Lactate [Moles/Vol] 1.3 mmol/L Normal 0.4-1.9 [facility] Comment on above: Order Comment: Y Performed By: #### L 503.6005, L509.7000 #### [facility] [address] [place], [address] M100.678on 08-03-2024 M100.678 Pending SARS-CoV-2 (COVID 19) Negative INFLUENZA A Negative INFLUENZA B Negative RSV PCR Negative Normal [facility] Comment on above: Performed By: #### M 100.678, M100.2200, L400.0001 #### [facility] [address] [place], [address] Procalcitoninon 08-03-2024 Procalcitonin 4.70 ng/mL High 0.00-0.09 [facility] Comment on above: Result Comment: A procalcitonin (PCT) level above 2.0 ng/mL on the first day of ICU admission is associated with a high risk for progression to severe sepsis and/or septic shock. A PCT level below 0.5 ng/mL on the first day of ICU admission is associated with a low risk for progression to severe and/or septic shock. Note: Concentrations <0.5 ng/mL do not exclude an infection on account of localized infections (without systemic signs) which can be associated with such low concentrations, or a systemic infection in its initial stages (<6 hours). Furthermore, increased procalcitonin can occur without infection. PCT concentrations between 0.5 and 2.0 ng/mL should be interpreted taking into account the patient's history. It is recommended to retest PCT within 6-24 hours if any concentrations <2 ng/mL are obtained. Performed By: #### M 100.678, M100.2200, L400.0001 #### [facility] [address] [place], [address] Urinalysis, Completeon 08-03 EPI,SQUAMOUS 0-5 SEEN Normal 0-5 [facility] Comment on above: Order Comment: CLEAN CATCH Performed By: #### M 100.678, M100.2200, L400.0001 #### [facility] [address] [place], [address] RBC 0-5 SEEN Normal 0-5 [facility] Comment on above: Order Comment: CLEAN CATCH Performed By: #### M 100.678, M100.2200, L400.0001 #### [facility] [address] [place], [address] WBC 5-10 SEEN Normal 0-5 [facility] Comment on above: Order Comment: CLEAN CATCH Performed By: #### M 100.678, M100.2200, L400.0001 #### [facility] [address] [place], [address] BACTERIA 0 SEEN Normal None Seen [facility] Comment on above: Order Comment: CLEAN CATCH Performed By: #### M 100.678, M100.2200, L400.0001 #### [facility] [address] [place], [address] Mucus Ql (Urine sed) 0 SEEN Normal [facility] Comment on above: Order Comment: CLEAN CATCH Performed By: #### M 100.678, M100.2200, L400.0001 #### [facility] [address] [place], [address] CNOVon 07-15-2024 CNOV Office Visit (DERMMN ) -------- MARYCRUZ VARGAS ([id number]) 1960 M [facility] Date Time Provider Department 07/15/24 3:00 PM ABHIJEET FAULKNER DERMMN During your visit today, we recorded the following information about you: Abhijeet Faulkner MD, PhD 07/15/2024 6:38 PM Signed EST patient TIERRA: Dr. Armendariz Chief Complaint: rash - 2nd opinion History of Present Ilness: Marycruz Vargas is a 64 year old male Patient is here for: 1) concerns related to HS Location: generalized Duration: chronic Symptoms: patient reports substance leaking/draining from body, states the consentyx dried it up and now it comes out as a dry power like substance, change of finger nail texture Current treatment: Cosentyx Past treatment: ketoconazole shampoo 2) skin discoloration Location: all over body Thinks it commenced after a cyst on his scalp burst in May 2023, releasing a waxy substance that spread to his body. He endorses a progression of a waxy buildup on his skin since then. This waxy substance was coming out from head to toe. Started Cosentyx for HS in January 2024. He thinks Cosentyx has drastically improved his HS and dried up the waxy substance coursing through his body. He thinks the waxy substance is coming out and is the reason his skin is discolored. Duration: Sine May 2023 Symptoms: pruritus, taking 7-8 showers daily to relieve itch and to wash waxy substance off skin Current tx: ketoconazole shampoo for scalp, sulfacetamide sodium wash for face Pertinent Past Medical History: History of skin cancer or atypical nevi No Specialty Problems Dermatology Problems Hydradenitis Hidradenitis suppurativa Bilateral finger numbness Hidradenitis suppurativa of anus Rash and nonspecific skin eruption Pertinent Family medical history: History of melanoma No Review of Systems: Constitutional: Denies fever, chills, night sweats, unintentional weight loss. Skin per HPI. No other new/concerning skin growth. Physical Exam: General: well appearing, of stated age, in no acute distress Neurology: alert and oriented times three Psychiatry: in a happy mood Skin: Ortiz skin type: IV Skin exam performed of face, scalp, ears, eyelids, lips, neck, chest, abdomen, back, bilateral upper extremities, hands, fingers, fingernails, bilateral lower extremities, feet, toes, toenails. Skin exam normal with the exception of: - Face with hyperpigmented patches - Chin and nose with atrophic scarring throughout - Arms with a few hypopigmented macules, no secondary changes - Legs with significant edema Labs: Latest Ref Rng 02/11/2024 05/23/2024 WBC 3.70 - 11.00 k/uL 8.94 10.83 RBC 4.20 - 6.00 m/uL 5.01 5.54 Hemoglobin 13.0 - 17.0 g/dL 12.0 (L) 12.6 (L) Hematocrit 39.0 - 51.0 % 41.9 42.6 MCV 80.0 - 100.0 fL 83.6 76.9 (L) MCH 26.0 - 34.0 pg 24.0 (L) 22.7 (L) MCHC 30.5 - 36.0 g/dL 28.6 (L) 29.6 (L) RDW-CV 11.5 - 15.0 % 16.1 (H) 15.3 (H) Platelet Count 150 - 400 k/uL 200 202 MPV 9.0 - 12.7 fL 12.0 12.0 Neut% % 69.1 Abs Neut (ANC) 1.45 - 7.50 k/uL 7.49 Lymph% % 23.2 Abs Lymph 1.00 - 4.00 k/uL 2.51 [place]% % 6.2 Abs [place] <0.87 k/uL 0.67 Eosin% % 0.6 Abs Eosin <0.46 k/uL 0.07 Baso% % 0.5 Abs Baso <0.11 k/uL 0.05 Immature Gran % % 0.4 IMMATURE GRANS (ABS) <0.10 k/uL 0.04 NRBC /100 WBC 0.0 Absolute nRBC <0.01 k/uL <0.01 <0.01 DTYPE Auto Albumin 3.9 - 4.9 g/dL 3.3 (L) Calcium 8.5 - 10.2 mg/dL 9.0 Phosphorus 2.7 - 4.8 mg/dL 3.5 Glucose 74 - 99 mg/dL 72 (L) BUN 9 - 24 mg/dL 13 Creatinine 0.73 - 1.22 mg/dL 0.85 Sodium 136 - 144 mmol/L 140 Potassium 3.7 - 5.1 mmol/L 4.2 Chloride 98 - 107 mmol/L 105 CO2 22 - 30 mmol/L 21 (L) Anion Gap 8 - 15 mmol/L 14 eGFR >=60 mL/min/1.73m? 96 Legend: (L) Low (H) High Assessment and Plan: 1. Rash and nonspecific skin eruption 2. Disturbance of skin sensation - [place] oil at bedtime Sunday-Sunday. Take weekends off. Leave on overnight under a shower cap and rinse out in the morning. Avoid use on face, breasts, groin, or axiillae. Counseled patient regarding side effects of topical steroids including, but are not limited to: atrophy, striae, telangectasias, tachyphylaxis, pigmentary changes, as well as risk of cataracts and glaucoma with periocular use. Informed patient that topical steroids should only be used on active skin lesions and not on normal skin. - clobetasol 0.05% shampoo, apply, lather, wait 5-10 minutes, then rinse 1-3 times per week. Avoid use on face, breasts, groin, or axiillae. Counseled patient regarding side effects of topical steroids including, but are not limited to: atrophy, striae, telangectasias, tachyphylaxis, pigmentary changes, as well as risk of cataracts and glaucoma with periocular use. Informed patient that topical steroids should only be used on active skin lesions and not on normal ski (more content not included)... Normal [facility] SURGICAL PATHOLOGYon CASE REPORT Normal [facility] Comment on above: Order Comment: Speci men Type: TISSUE SPECIMENOrdering Facility: [facility] Address: [address] [place] [address] Result Comment: Surg [facility] Pathology Report Case: [id number] Authorizing Provider: Abhijeet Faulkner MD, Collected: 07/15/2024 04:11 PM PhD Ordering Location: Dermatology Received: 07/15/2024 07:27 PM Pathologist: Temitope Cruz MD Specimen: Skin, Punch Biopsy, A. R jaw, r/o EDP vs LPP vs phototoxic adverse drug Performed By: #### S ####[facility] LABCLIA [id number] [address] [place] CLINICAL HISTORY hx of HS, and now wi th chronic rash causing discoloration with subjective waxy feeling' of skin Normal [facility] Comment on above: Order Comment: Speci men Type: TISSUE SPECIMENOrdering Facility: [facility] Address: [address] [place] [address] Performed By: #### S ####[facility] [id number] [address] DIAGNOSIS COMMENT Normal [facility] Comment on above: Order Comment: Speci men Type: TISSUE SPECIMENOrdering Facility: [facility] Address: [address] [place] [address] Result Comment: Hist ologic sections show a compact stratum corneum overlying an epidermis with mild basilar hyperpigmentation. There is focal parakeratosis surrounding a follicular ostium. Within the dermis, there is a scant superficial perivascular lymphohistiocytic infiltrate. There is also a moderately dense perifollicular lymphohistiocytic infiltrate. Eosinophils are not readily identified. The clinical history and photographs were reviewed. Overall, these features are those of mild chronic folliculitis with basilar hyperpigmentation. The findings are nonspecific, but could be consistent with partially treated seborrheic dermatitis with post-inflammatory pigment alteration. A drug eruption cannot be entirely excluded. Classic histologic features of erythema dyschromicum perstans or lichen planus pigmentosa are not identified. Given the clinical findings, immunohistochemical staining can be performed upon request to evaluate for the possibility of vitiligo. Clinical correlation remains essential. Performed By: #### S ####[facility] [id number] [address] FINAL DIAGNOSIS Normal [facility] Comment on above: Order Comment: Tristeni jase Type: TISSUE SPECIMENOrdering Facility: [facility] Address: [address] [place] [address] Result Comment: A. S kin, right jaw, punch biopsy: - Mild chronic folliculitis with basilar hyperpigmentation (see comment). LEANN/JEISON/german/07/16/2024 Performed By: #### S ####[facility] LABCLIA [id number] [address] [place] FINAL PERFORMING LAB Normal [facility] Comment on above: Order Comment: Speci men Type: TISSUE SPECIMENOrdering Facility: [facility] Address: [address] [place] [address] Result Comment: Diag nostic interpretation performed at: [facility], [address] [place] [address] CLIA# [id number] Fence Supervisor: Ron Little MD Performed By: #### S ####[facility] LABCLIA [id number] [address] GROSS DESCRIPTION Normal [facility] Comment on above: Order Comment: Speci men Type: TISSUE SPECIMENOrdering Facility: [facility] Address: [address] [place] [address] Result Comment: A. S kin, Punch Biopsy Received in formalin is a cylindrical segment of skin and subcutaneous tissue measuring 0.5 x 0.4 x 0.5 cm. On the skin surface there is a 0.5 cm, vaughan-brown, slightly elevated area. The specimen is bisected. Totally submitted in one cassette. DB July 15, 2024 9:10 PM Gross examination performed at [facility] [place], [address] [place] [address] Performed By: #### S ####[facility] LABIA [id number] [address] [place] CNOVon 06-30-2024 CNOV Office Visit (DERMMN ) -------- MARYCRUZ VARGAS ([id number]) 1960 M [facility] Date Time Provider Department 06/30/24 10:15 AM JEREMY ARMENDARIZ During your visit today, we recorded the following information about you: Jeremy Armendariz MD 06/30/2024 11:38 AM Signed Established patient CHIEF COMPLAINT: Hidradenitis suppurativa HISTORY OF PRESENT ILLNESS: Marycruz Vargas is a 64 year old male here for evaluation of hidradenitis suppurativa. LCV: 05/14/24; Provider: Oren Braun Today patient reports: pt reports the wound has healed - feels skin is dry now, feels like he is not aware of the side effects of medication and how it will affect him (Cosentyx) Cosentyx is helping with HS. Patient had a breakout with waxy liquid coming out of scalp. Dry substance (dust) is now still coming out of skin on scalp, fingernails due to build up. Causes pain and itching. Past Medical History PAST MEDICAL HISTORY Diagnosis Date Abscess, groin Anemia of chronic disease 12/20/2016 Per heme during inpatient stay 11/2016 Essential hypertension Hepatitis B carrier (HCC) HFrEF (heart failure with reduced ejection fraction) (HCC) Hidradenitis suppurativa Iron deficiency anemia 12/20/2016 Low HDL (under 40) 07/17/2017 Mixed hyperlipidemia Situational depression 07/18/2018 Smoker 12/20/2016 Started at age 16, Up to a PPD and as of 12/20/2016 doing about 1/2 PPD REVIEW OF SYSTEMS: Constitutional: Denies fever, chills, unintentional weight loss. Skin as per HPI Medications Current Outpatient Medications Medication Sig ketoconazole (NIZORAL) 2 % shampoo Use on hair three times weekly, lather in and leave on for five to ten minutes before washing out. Sulfacetamide Sodium, Acne, (KLARON) 10 % susp Use twice daily as face wash to affected areas furosemide (LASIX) 40 mg tablet Take 1 tablet by mouth once daily. potassium chloride (KLOR-CON) 20 mEq packet Take 20 mEq by mouth once daily. secukinumab (COSENTYX PEN, 2 PENS,) 150 mg/mL Inject 300mg (2 pens) subcutaneously at weeks 0,1,2,3 and 4, then 300mg (2 pens) every 4 weeks thereafter secukinumab (COSENTYX PEN, 2 PENS,) 150 mg/mL Inject 300mg (2 pens) every 4 weeks molnupiravir 200 mg capsule ascorbic acid, vitamin C, (VITAMIN C) 500 mg tablet Take 500 mg by mouth every other day. atorvastatin (LIPITOR) 10 mg tablet Take 10 mg by mouth daily at bedtime. VITAMIN D2 1,250 mcg (50,000 unit) capsule Take 50,000 Units by mouth every Sunday. temazepam (RESTORIL) 15 mg Take 15 mg by mouth daily at bedtime. acetaminophen (TYLENOL) 325 mg tablet Take 650 mg by mouth every 6 hours as needed for pain. lactobacillus rhamnosus (CULTURELLE) 10 billion cell capsule Take 1 capsule by mouth two times a day. ibrutinib (IMBRUVICA) 420 mg tablet Take 1 tablet by mouth once daily. ketoconazole (NIZORAL) 2 % shampoo Apply to affected area once daily as needed (dry skin). therapeutic multivitamin-minerals (THERA-M PLUS) 9 mg iron-400 mcg tablet Take 1 tablet by mouth once daily. ondansetron (ZOFRAN) 4 mg tablet Take 4 mg by mouth every 4 hours as needed for nausea/vomiting. calcium carbonate (TUMS) 500 mg chew Take 500 mg by mouth once daily. PARoxetine (PAXIL) 10 mg tablet Take 30 mg by mouth once daily. folic acid 1 mg tablet Take 1 mg by mouth once daily. No current facility-administered medications for this visit. PHYSICAL EXAM: General: awake, alert, no acute distress Neuropsych: appropriate mood and affect Eyes: Sclerae anicteric, without conjunctival injection, eyelids unremarkable Skin exam performed including face, axillae, chest, abdomen. Patient declined genital exam. - Ill-defined hyperpigmented patches on forehead - Dorsal forearms with even hyperpigmentation, not removed with isopropyl alcohol - Scalp and hands including fingernails appear normal ASSESSMENT AND PLAN: # Dyschromia # Hyperpigmentation # Disturbance of skin sensation Medical Complexity: undiagnosed new problem with uncertain prognosis - We discussed possible utility of skin biopsy to rule out etiologies such as lichen planus pigmentosus or other causes of hyperpigmentation (melasma, hemosiderin deposition, etc). Discussed risks and benefits of procedure. - Patient opposed to biopsy of christianity although this appears of highest yield area - We discussed that no abnormalities such as dirt or skin build up are visualized elsewhere; hyperpigmentation is not able to be removed with isopropyl alcohol making retention hyperkeratosis less likely - Patient prefers to have second opinion on need of biopsy with Dr. Faulkner, will assist in scheduling Patient advised of potential adverse effects of any medications discussed above and what to do if patient experiences any of these, including contacting clinic. Answered all questions. Patient expressed understanding. (more content not included)... Normal [facility] CBC W Auto Differential pane l (Bld)on 05-23-2024 Basophils (Bld) [#/Vol] 0.05 10*3/uL Normal <0.11 [facility] Comment on above: Order Comment: Barney laguna Type: BLOOD SPECIMEN Ordering Facility: [facility] Address: [address] [place] [address] Performed By: #### 5 7021-8 #### [facility] CLIA [id number] [address] [place] [address] [place] Basophils/100 WBC (Bld) 0.5 % Normal [facility] Comment on above: Order Comment: Barney laguna Type: BLOOD SPECIMEN Ordering Facility: [facility] Address: [address] [place] [address] Performed By: #### 5 7021-8 #### [facility] CLIA [id number] [address] [place] [address] [place] Differential cell count method Nom (Bld) Auto Normal [facility] Comment on above: Order Comment: Barney laguna Type: BLOOD SPECIMEN Ordering Facility: [facility] Address: [address] [place] [address] Performed By: #### 5 7021-8 #### [facility] CLIA [id number] [address] [place] [address] [place] Eosinophils (Bld) [#/Vol] 0.07 10*3/uL Normal <0.46 [facility] Comment on above: Order Comment: Barney laguna Type: BLOOD SPECIMEN Ordering Facility: [facility] Address: [address] [place] [address] Performed By: #### 5 7021-8 #### [facility] CLIA [id number] [address] [place] [address] [place] Eosinophils/100 WBC (Bld) 0.6 % Normal [facility] Comment on above: Order Comment: Speci men Type: BLOOD SPECIMEN Ordering Facility: [facility] Address: [address] [place] [address] Performed By: #### 5 7021-8 #### [facility] CLIA [id number] [address] [place] [address] [place] Erythrocyte distribution width (RBC) [Ratio] 15.3 % High 11.5-15.0 [facility] Comment on above: Order Comment: Speci men Type: BLOOD SPECIMEN Ordering Facility: [facility] Address: [address] [place] [address] Performed By: #### 5 7021-8 #### [facility] CLIA [id number] [address] [place] [address] [place] Hematocrit (Bld) [Volume fraction] 42.6 % Normal 39.0-51.0 [facility] Comment on above: Order Comment: Speci men Type: BLOOD SPECIMEN Ordering Facility: [facility] Address: [address] [place] [address] Performed By: #### 5 7021-8 #### [facility] CLIA [id number] [address] [place] [address] [place] Hemoglobin (Bld) [Mass/Vol] 12.6 g/dL Low 13.0-17.0 [facility] Comment on above: Order Comment: Speci men Type: BLOOD SPECIMEN Ordering Facility: [facility] Address: [address] [place] [address] Performed By: #### 5 7021-8 #### [facility] CLIA [id number] [address] [place] [address] [place] Immature granulocytes (Bld) [#/Vol] 0.04 10*3/uL Normal <0.10 [facility] Comment on above: Order Comment: Speci men Type: BLOOD SPECIMEN Ordering Facility: [facility] Address: [address] [place] [address] Performed By: #### 5 7021-8 #### [facility] CLIA [id number] [address] [place] [address] [place] Immature granulocytes/100 WBC (Bld) 0.4 % Normal [facility] Comment on above: Order Comment: Speci men Type: BLOOD SPECIMEN Ordering Facility: [facility] Address: [address] [place] [address] Performed By: #### 5 7021-8 #### [facility] CLIA [id number] [address] [place] [address] [place] Lymphocytes (Bld) [#/Vol] 2.51 10*3/uL Normal 1.00-4.00 [facility] Comment on above: Order Comment: Speci men Type: BLOOD SPECIMEN Ordering Facility: [facility] Address: [address] [place] [address] Performed By: #### 5 7021-8 #### [facility] CLIA [id number] [address] [place] [address] [place] Lymphocytes/100 WBC (Bld) 23.2 % Normal [facility] Comment on above: Order Comment: Speci men Type: BLOOD SPECIMEN Ordering Facility: [facility] Address: [address] [place] [address] Performed By: #### 5 7021-8 #### [facility] CLIA [id number] [address] [place] [address] [place] MCH (RBC) [Entitic mass] 22.7 pg Low 26.0-34.0 [facility] Comment on above: Order Comment: Speci men Type: BLOOD SPECIMEN Ordering Facility: [facility] Address: [address] [place] [address] Performed By: #### 5 7021-8 #### [facility] CLIA [id number] [address] [place] [address] [place] MCHC (RBC) [Mass/Vol] 29.6 g/dL Low 30.5-36.0 [facility] Comment on above: Order Comment: Speci men Type: BLOOD SPECIMEN Ordering Facility: [facility] Address: [address] [place] [address] Performed By: #### 5 7021-8 #### [facility] CLIA [id number] [address] [place] [address] [place] MCV (RBC) [Entitic vol] 76.9 fL Low 80.0-100.0 [facility] Comment on above: Order Comment: Speci men Type: BLOOD SPECIMEN Ordering Facility: [facility] Address: [address] [place] [address] Performed By: #### 5 7021-8 #### [facility] CLIA [id number] [address] [place] [address] [place] Monocytes (Bld) [#/Vol] 0.67 10*3/uL Normal <0.87 [facility] Comment on above: Order Comment: Speci men Type: BLOOD SPECIMEN Ordering Facility: [facility] Address: [address] [place] [address] Performed By: #### 5 7021-8 #### [facility] CLIA [id number] [address] [place] [address] [place] Monocytes/100 WBC (Bld) 6.2 % Normal [facility] Comment on above: Order Comment: Speci men Type: BLOOD SPECIMEN Ordering Facility: [facility] Address: [address] [place] [address] Performed By: #### 5 7021-8 #### [facility] CLIA [id number] [address] [place] [address] [place] Neutrophils (Bld) [#/Vol] 7.49 10*3/uL Normal 1.45-7.50 [facility] Comment on above: Order Comment: Speci men Type: BLOOD SPECIMEN Ordering Facility: [facility] Address: [address] [place] [address] Performed By: #### 5 7021-8 #### [facility] CLIA [id number] [address] [place] [address] [place] Neutrophils/100 WBC (Bld) 69.1 % Normal [facility] Comment on above: Order Comment: Speci men Type: BLOOD SPECIMEN Ordering Facility: [facility] Address: [address] [place] [address] Performed By: #### 5 7021-8 #### [facility] CLIA [id number] [address] [place] [address] [place] Nucleated RBC (Bld) [#/Vol] 10*3/uL Normal <0.01 [facility] Comment on above: Order Comment: Speci men Type: BLOOD SPECIMEN Ordering Facility: [facility] Address: [address] [place] [address] Performed By: #### 5 7021-8 #### [facility] CLIA [id number] [address] [place] [address] [place] Nucleated RBC/100 WBC (Bld) [Ratio] 0.0 /100 WBC Normal [facility] Comment on above: Order Comment: Speci men Type: BLOOD SPECIMEN Ordering Facility: [facility] Address: [address] [place] [address] Performed By: #### 5 7021-8 #### [facility] CLIA [id number] [address] [place] [address] [place] Platelet mean volume (Bld) [Entitic vol] 12.0 fL Normal 9.0-12.7 [facility] Comment on above: Order Comment: Speci men Type: BLOOD SPECIMEN Ordering Facility: [facility] Address: [address] [place] [address] Performed By: #### 5 7021-8 #### [facility] CLIA [id number] [address] [place] [address] [place] [facility] [place] Platelets (Bld) [#/Vol] 202 10*3/uL Normal 150-400 [facility] Comment on above: Order Comment: Barney laguna Type: BLOOD SPECIMEN Ordering Facility: [facility] Address: [address] [place] [address] Performed By: #### 5 7021-8 #### [facility] CLIA [id number] [address] [place] [address] [place] [facility] [place] RBC (Bld) [#/Vol] 5.54 10*6/uL Normal 4.20-6.00 [facility] Comment on above: Order Comment: Barney laguna Type: BLOOD SPECIMEN Ordering Facility: [facility] Address: [address] [place] [address] Performed By: #### 5 7021-8 #### [facility] CLIA [id number] [address] [place] [address] [place] WBC (Bld) [#/Vol] 10.83 10*3/uL Normal 3.70-11.00 [facility] Comment on above: Order Comment: Barney laguna Type: BLOOD SPECIMEN Ordering Facility: [facility] Address: [address] [place] [address] Performed By: #### 5 7021-8 #### [facility] CLIA [id number] [address] [place] [address] OF [facility] CNOVon 05-14-2024 CNOV Office Visit (DERMMN ) -------- MARYCRUZ VARGAS ([id number]) 1960 M [facility] Date Time Provider Department 05/14/24 2:00 PM OREN BRAUN DERMMN During your visit today, we recorded the following information about you: Oren Braun MD 05/14/2024 4:53 PM Signed Est Patient LV: 04/22/2024 Chief Complaint: HS Follow Up History of Present Ilness: Marycruz Vargas is a 64 year old male Patient is here for: 1) HS Follow up HS Location: anal region, scalp Treatment at last apt: Cosentyx, Clindamycin 1% lotion, BPO wash, Sulfacetamide wash, Ketoconazole 2% shampoo Using as prescribed: keto shampoo - using it three times weekly (drying hair out), Side effects from meds? Cosentyx q4 weeks - feels like 'toxins' are coming out in nails, scalp, has very swollen legs ever since starting cosentyx Overall Status: not well Resides at [facility] Pt reports that since last visit, the prescriptions have not helped He reports dirt coming from his fingernails, skin and hair Pertinent Past Medical History: History of skin cancer or atypical nevi No Specialty Problems Dermatology Problems Hydradenitis Hidradenitis suppurativa Bilateral finger numbness Hidradenitis suppurativa of anus Rash and nonspecific skin eruption Pertinent Family medical history: History of melanoma No Review of Systems: Constitutional: Denies fever, chills, night sweats, unintentional weight loss. Skin per HPI. No other new/concerning skin growth. Physical Exam: General: well appearing, of stated age, in no acute distress Neurology: alert and oriented times three Psychiatry: in a happy mood Skin: Ortiz skin type: IV Limited skin examination performed scalp, face, neck, lower extremities. Skin exam normal with the exception of: - Hyperpigmented patches submandibular area/anterior chin - 2+ bilateral lower extremity edema with eczematous hyperpigmented patches Assessment and Plan: 1. Rash and nonspecific skin eruption 2. Hyperpigmentation of skin - We discussed in depth that there is no abnormal skin build up or skin dirt identified on the skin today - We discussed do not recommend any invasive procedures to remove dirt or skin debris from the body - Patient states he would like to see another linen worker like Dr. Faulkner who he saw in past. I let him know I will reach out to our scheduling team to assist with an appointment 3. Stasis dermatitis - Discussed etiology - Discussed recommendation for compression socks above the knee and elevating the legs as much as possible Return to clinic as needed. I spent 30 minutes in the room discussing the patient's concerns face to face. The documentation for this note was completed by Dedra Claire RN acting as scribe for Oren Braun MD. May 14, 2024 2:07 PM. I agree with the Chief Complaint, ROS, and Past Histories independently gathered by the clinical network support and the remaining scribed note accurately describes my personal service to the patient. Oren Braun MD May 14, 2024 Allergies As of Date: 05/14/2024 (No Known Allergies) Date Reviewed: 05/14/2024 Reviewed by: Dedra Claire RN - Fully Assessed Reason for Visit: Hidradenitis suppurativa [Other] Primary Visit Diagnosis:Rash and nonspecific skin eruption [R21] Other Visit Diagnoses:Hyperpigmentat ion of skin [L81.9] Stasis dermatitis [I87.2] Prescriptions as of 05/14/2024 - ketoconazole (NIZORAL) 2 % shampoo Use on hair three times weekly, lather in and leave on for five to ten minutes before washing out. - Sulfacetamide Sodium, Acne, (KLARON) 10 % susp Use twice daily as face wash to affected areas - furosemide (LASIX) 40 mg tablet Take 1 tablet by mouth once daily. - potassium chloride (KLOR-CON) 20 mEq packet Take 20 mEq by mouth once daily. - secukinumab (COSENTYX PEN, 2 PENS,) 150 mg/mL Inject 300mg (2 pens) subcutaneously at weeks 0,1,2,3 and 4, then 300mg (2 pens) every 4 weeks thereafter - secukinumab (COSENTYX PEN, 2 PENS,) 150 mg/mL Inject 300mg (2 pens) every 4 weeks - molnupiravir 200 mg capsule - ascorbic acid, vitamin C, (VITAMIN C) 500 mg tablet Take 500 mg by mouth every other day. - atorvastatin (LIPITOR) 10 mg tablet Take 10 mg by mouth daily at bedtime. - VITAMIN D2 1,250 mcg (50,000 unit) capsule Take 50,000 Units by mouth every Sunday. - temazepam (RESTORIL) 15 mg Take 15 mg by mouth daily at bedtime. - acetaminophen (TYLENOL) 325 mg tablet Take 650 mg by mouth every 6 hours as needed for pain. - lactobacillus rhamnosus (CULTURELLE) 10 billion cell capsule Take 1 capsule by mouth two times a day. - ibrutinib (IMBRUVICA) 420 mg tablet Take 1 tablet by mouth once daily. - ketoconazole (NIZORAL) 2 % shampoo Apply to affected area once daily as needed (dry skin). - therapeutic multivit (more content not included)... Normal [facility] 05-14-2024 [facility] Telephone (DERMMN) -------- MARYCRUZ VARGAS ([id number]) 1960 [facility] Date Time Provider Department 05/14/24 ABHIJEET FAULKNER DERMMN During your visit today, we recorded the following information about you: Astrid Mckenzie 05/14/2024 4:31 PM Signed Patient saw Dr. Braun today, see visit notes. Patient would like to see Dr. Faulkner. Please review Visit Notes from today, 05/14 and/or speak to Dr. Braun Will Dr. Faulkner see this patient Patient phone: [phone] (home) Abhijeet Faulkner MD, PhD 05/21/2024 11:47 AM Signed I am happy to see Mr. Vargas. OK to schedule him in my next open slot; in Dr. Stone's next open slot; or in an open resident continuity clinic slot and I will staff the encounter with the resident. Thank you. Astrid Mckenzie 07/17/2024 2:15 PM Signed Completed appointment on 07/15 Allergies As of Date: 05/14/2024 (No Known Allergies) Date Reviewed: 05/14/2024 Reviewed by: Dedra Claire RN - Fully Assessed Reason for Visit: Appointment [186] Prescriptions as of 07/17/2024 - Fluocinolone-Shower Cap (DERMA-SMOOTHE/FS SCALP OIL) 0.01 % oil Use three times weekly to scalp. Leave on for 12 hours, then rinse out - Clobetasol Propionate (CLOBEX) 0.05 % sham Shampoo scalp three times per week, let sit for 5 mins on scalp. Avoid getting on face, armpits or groin. - ketoconazole (NIZORAL) 2 % shampoo Use on hair three times weekly, lather in and leave on for five to ten minutes before washing out. - Sulfacetamide Sodium, Acne, (KLARON) 10 % susp Use twice daily as face wash to affected areas - furosemide (LASIX) 40 mg tablet Take 1 tablet by mouth once daily. - potassium chloride (KLOR-CON) 20 mEq packet Take 20 mEq by mouth once daily. - secukinumab (COSENTYX PEN, 2 PENS,) 150 mg/mL Inject 300mg (2 pens) subcutaneously at weeks 0,1,2,3 and 4, then 300mg (2 pens) every 4 weeks thereafter - secukinumab (COSENTYX PEN, 2 PENS,) 150 mg/mL Inject 300mg (2 pens) every 4 weeks - molnupiravir 200 mg capsule - ascorbic acid, vitamin C, (VITAMIN C) 500 mg tablet Take 500 mg by mouth every other day. - atorvastatin (LIPITOR) 10 mg tablet Take 10 mg by mouth daily at bedtime. - VITAMIN D2 1,250 mcg (50,000 unit) capsule Take 50,000 Units by mouth every Sunday. - temazepam (RESTORIL) 15 mg Take 15 mg by mouth daily at bedtime. - acetaminophen (TYLENOL) 325 mg tablet Take 650 mg by mouth every 6 hours as needed for pain. - lactobacillus rhamnosus (CULTURELLE) 10 billion cell capsule Take 1 capsule by mouth two times a day. - ibrutinib (IMBRUVICA) 420 mg tablet Take 1 tablet by mouth once daily. - ketoconazole (NIZORAL) 2 % shampoo Apply to affected area once daily as needed (dry skin). - therapeutic multivitamin-minerals (THERA-M PLUS) 9 mg iron-400 mcg tablet Take 1 tablet by mouth once daily. - ondansetron (ZOFRAN) 4 mg tablet Take 4 mg by mouth every 4 hours as needed for nausea/vomiting. - calcium carbonate (TUMS) 500 mg chew Take 500 mg by mouth once daily. - PARoxetine (PAXIL) 10 mg tablet Take 30 mg by mouth once daily. - folic acid 1 mg tablet Take 1 mg by mouth once daily. Problem List As Of Date 05/14/2024 Noted Resolved Hydradenitis [L73.2] 12/03/2016 Iron deficiency anemia [D50.9] 12/20/2016 Anemia of chronic disease [D63.8] 12/20/2016 Smoker [F17.200] 12/20/2016 Screening for prostate cancer [Z12.5] 12/20/2016 Screening for colon cancer [Z12.11] 12/20/2016 Hidradenitis suppurativa [L73.2] 02/24/2017 Encounter for screening for cardiovascular diso*03/17/2017 Non-compliant patient [Z91.199] 03/17/2017 Low HDL (under 40) [E78.6] 07/17/2017 Well adult exam [Z00.00] 01/15/2018 Encounter for screening for diabetes mellitus [*01/15/2018 Bilateral finger numbness [R20.0] 01/15/2018 Essential hypertension [I10] Situational depression [F43.21] 07/18/2018 CLL (chronic lymphocytic leukemia) (HCC) [C91.1*03/16/2021 HFrEF (heart failure with reduced ejection frac*01/23/2022 Chest pain [R07.9] 01/23/2022 02/16/2022 Leukocytosis [D72.829] 01/23/2022 Decompensated heart failure (HCC) [I50.9] 01/23/2022 02/16/2022 HTN (hypertension) [I10] 03/17/2022 HLD (hyperlipidemia) [E78.5] 03/17/2022 Anemia due to multiple mechanisms [D64.89] 03/17/2022 Sacral wound [S31.000A] 03/17/2022 Hepatosplenomegaly [R16.2] 04/19/2022 Lymphadenopathy, inguinal [R59.0] 04/19/2022 Cellulitis of gluteal region [L03.317] 04/19/2022 Atrial fibrillation (HCC) [I48.91] 04/20/2022 Hidradenitis suppurativa of anus [L73.2] 06/07/2023 AMS (altered mental status) [R41.82] 02/10/2024 Edema of both lower legs [R60.0] 02/10/2024 Wound of right buttock [S31.819A] 02/10/2024 Bradycardia [R00.1] 02/11/2024 Rash and nonspecific skin eruption [R21] 02/11/2024 Obesity, Class I, BMI 30-34.9 [E66.811] 02/13/2024 Encounte (more content not included)... Normal [facility] CNOVon 04-22-2024 CNOV Office Visit (DERMMN ) -------- MARYCRUZ VARGAS ([id number]) 1960 M [facility] Date Time Provider Department 04/22/24 8:20 AM EMELYN MACHADO DERMMN During your visit today, we recorded the following information about you: Oren Braun MD 04/22/2024 11:16 AM Signed EST PT TIERRA: 08/27/2023 Jeremy Armendariz MD Chief Complaint: Hidradenitis suppurativa History of Present Ilness: Marycruz Vargas is a 64 year old male Patient is here for: 1) HS Current treatment: he is on cosentyx currently. Past treatments: clindamycin lotion 1% twice daily, BPO wash once daily, ILK - patient with history of CLL, will ask hem/onc for their permission to start cosentyx - Dr. Christopher Mccabe - In reserve: ILK to active areas Pertinent Past Medical History: History of skin cancer or atypical nevi No Specialty Problems Dermatology Problems Hydradenitis Hidradenitis suppurativa Bilateral finger numbness Hidradenitis suppurativa of anus Rash and nonspecific skin eruption Pertinent Family medical history: History of melanoma No Review of Systems: Constitutional: Denies fever, chills, night sweats, unintentional weight loss. Skin per HPI. No other new/concerning skin growth. Physical Exam: General: well appearing, of stated age, in no acute distress Neurology: alert and oriented times three Psychiatry: in a happy mood Skin: Ortiz skin type: IV Limited skin examination performed of scalp, face, upper and lower extremities performed. Skin exam normal with the exception of: - scalp with dew deep-seated nodules, scarring, improved from prior - edema and xerosis of lower extremities Assessment and Plan: #Hidradenitis suppurativa, involving buttocks #Dissecting Cellulitis - Medical Complexity: chronic illness - improving on cosentyx - Continue cosentyx as prescribed - Discussed there are no changes on the skin today suggestive of dirt or dust, skin is improving as expected Plan: - Clindamycin 1% lotion twice daily to affected areas with flares. Instructed to use benzoyl peroxide wash once daily while using this medication to prevent antibiotic resistance. - START sulfacetamide wash, use this twice daily - START ketoconazole 2% shampoo. Lather into scalp and leave on for 5 minutes before washing off. You may use your regular shampoo or head and shoulders to wash your hair afterwards. Patient asking if we can [facility] to be sure medications will be ready for him - will contact #Stasis dermatitis - Recommend compression stockings for the legs - Discussed importance of liberal emollients -can consider kenalog injections to active areas in the future Patient advised of potential adverse effects of any medications discussed above and what to do if patient experiences any of these, including contacting clinic. Answered all questions. Patient expressed understanding. Return to clinic: 2 weeks The documentation for this note was completed by Izabella Guallpa RN acting as scribe for Emelyn Machado MD. April 22, 2024 8:25 AM. I agree with the Chief Complaint, ROS, and Past Histories independently gathered by the clinical network support and the remaining scribed note accurately describes my personal service to the patient. Emelyn Machado MD April 22, 2024 Staff Attestation: I have seen and evaluated the patient and discussed the case with the resident physician. I agree with the assessment and plan as documented in the resident?s note. Oren Braun MD April 22, 2024 11:16 AM Referring Provider: SELF [200] Allergies As of Date: 04/22/2024 (No Known Allergies) Date Reviewed: 04/22/2024 Reviewed by: Izabella Guallpa RN - Fully Assessed Reason for Visit: Hidradenitis supprativa [Other] Primary Visit Diagnosis:Hidradenitis suppurativa [L73.2] Other Visit Diagnoses:Dissecting cellulitis of scalp [L66.3] Stasis dermatitis [I87.2] Order(s):Sulfacetamide Sodium, Acne, (KLARON) 10 % suspUse twice daily as face wash to affected areasDisp: 118 mLRfl: 5 ketoconazole (NIZORAL) 2 % shampooUse on hair three times weekly, lather in and leave on for five to ten minutes before washing out.Disp: 120 mLRfl: 2 Prescriptions as of 04/22/2024 - Sulfacetamide Sodium, Acne, (KLARON) 10 % susp Use twice daily as face wash to affected areas - ketoconazole (NIZORAL) 2 % shampoo Use on hair three times weekly, lather in and leave on for five to ten minutes before washing out. - furosemide (LASIX) 40 mg tablet Take 1 tablet by mouth once daily. - potassium chloride (KLOR-CON) 20 mEq packet Take 20 mEq by mouth once daily. - secukinumab (COSENTYX PEN, 2 PENS,) 150 mg/mL Inject 300mg (2 pens) subcutaneously at weeks 0,1,2,3 and 4, then 300mg (2 pens) every 4 weeks thereafter - secukinumab (COSENTYX PEN, 2 PENS,) 150 mg/mL Inject 300mg (2 pens) every 4 w (more content not included)... Normal [facility] CNOVon 04-01-2024 CNOV Office Visit (DERMMN ) -------- MARYCRUZ VARGAS ([id number]) 1960 M [place] Date Time Provider Department 04/01/24 9:10 AM MILAGROS PATEL During your visit today, we recorded the following information about you: Sujata Malagon RN 04/01/2024 9:24 AM Signed NO SHOW Allergies As of Date: 04/01/2024 (No Known Allergies) Date Reviewed: 02/15/2024 Reviewed by: Stacey Ho OCCA - Fully Assessed Reason for Visit: No Show [1558] Primary Visit Diagnosis:NO SHOW Prescriptions as of 04/01/2024 - furosemide (LASIX) 40 mg tablet Take 1 tablet by mouth once daily. - potassium chloride (KLOR-CON) 20 mEq packet Take 20 mEq by mouth once daily. - secukinumab (COSENTYX PEN, 2 PENS,) 150 mg/mL Inject 300mg (2 pens) subcutaneously at weeks 0,1,2,3 and 4, then 300mg (2 pens) every 4 weeks thereafter - secukinumab (COSENTYX PEN, 2 PENS,) 150 mg/mL Inject 300mg (2 pens) every 4 weeks - molnupiravir 200 mg capsule - ascorbic acid, vitamin C, (VITAMIN C) 500 mg tablet Take 500 mg by mouth every other day. - atorvastatin (LIPITOR) 10 mg tablet Take 10 mg by mouth daily at bedtime. - VITAMIN D2 1,250 mcg (50,000 unit) capsule Take 50,000 Units by mouth every Sunday. - temazepam (RESTORIL) 15 mg Take 15 mg by mouth daily at bedtime. - acetaminophen (TYLENOL) 325 mg tablet Take 650 mg by mouth every 6 hours as needed for pain. - lactobacillus rhamnosus (CULTURELLE) 10 billion cell capsule Take 1 capsule by mouth two times a day. - ibrutinib (IMBRUVICA) 420 mg tablet Take 1 tablet by mouth once daily. - ketoconazole (NIZORAL) 2 % shampoo Apply to affected area once daily as needed (dry skin). - therapeutic multivitamin-minerals (THERA-M PLUS) 9 mg iron-400 mcg tablet Take 1 tablet by mouth once daily. - ondansetron (ZOFRAN) 4 mg tablet Take 4 mg by mouth every 4 hours as needed for nausea/vomiting. - calcium carbonate (TUMS) 500 mg chew Take 500 mg by mouth once daily. - PARoxetine (PAXIL) 10 mg tablet Take 30 mg by mouth once daily. - folic acid 1 mg tablet Take 1 mg by mouth once daily. Problem List As Of Date 04/01/2024 Noted Resolved Hydradenitis [L73.2] 12/03/2016 Iron deficiency anemia [D50.9] 12/20/2016 Anemia of chronic disease [D63.8] 12/20/2016 Smoker [F17.200] 12/20/2016 Screening for prostate cancer [Z12.5] 12/20/2016 Screening for colon cancer [Z12.11] 12/20/2016 Hidradenitis suppurativa [L73.2] 02/24/2017 Encounter for screening for cardiovascular diso*03/17/2017 Non-compliant patient [Z91.199] 03/17/2017 Low HDL (under 40) [E78.6] 07/17/2017 Well adult exam [Z00.00] 01/15/2018 Encounter for screening for diabetes mellitus [*01/15/2018 Bilateral finger numbness [R20.0] 01/15/2018 Essential hypertension [I10] Situational depression [F43.21] 07/18/2018 CLL (chronic lymphocytic leukemia) (HCC) [C91.1*03/16/2021 HFrEF (heart failure with reduced ejection frac*01/23/2022 Chest pain [R07.9] 01/23/2022 02/16/2022 Leukocytosis [D72.829] 01/23/2022 Decompensated heart failure (HCC) [I50.9] 01/23/2022 02/16/2022 HTN (hypertension) [I10] 03/17/2022 HLD (hyperlipidemia) [E78.5] 03/17/2022 Anemia due to multiple mechanisms [D64.89] 03/17/2022 Sacral wound [S31.000A] 03/17/2022 Hepatosplenomegaly [R16.2] 04/19/2022 Lymphadenopathy, inguinal [R59.0] 04/19/2022 Cellulitis of gluteal region [L03.317] 04/19/2022 Atrial fibrillation (HCC) [I48.91] 04/20/2022 Hidradenitis suppurativa of anus [L73.2] 06/07/2023 AMS (altered mental status) [R41.82] 02/10/2024 Edema of both lower legs [R60.0] 02/10/2024 Wound of right buttock [S31.819A] 02/10/2024 Bradycardia [R00.1] 02/11/2024 Rash and nonspecific skin eruption [R21] 02/11/2024 Obesity, Class I, BMI 30-34.9 [E66.811] 02/13/2024 Encounter Status:Closed by SUJATA MALAGON on 04/01/24 Normal [facility] CNDSon 02-15-2024 [facility] HNO ID: [id number] Author: PAU TSANG APRN.COOPERER Service: Hospital Medicine Author Type: Nurse Practitioner Type: Discharge Summary Filed: 02/15/2024 09:41 Note Text: -------- Attestation signed by Rajesh Baumann MD at 02/25/2024 7:43 PM Patient seen and examined on day of discharge. The below has been reviewed and edited to reflect my clinical evaluation. I personally spent > 30min on this discharge in the coordination of care, medication reconciliation, and patient counseling. Rajesh Baumann MD 02/25/2024 7:41 PM -------- DISCHARGE SUMMARY PATIENT NAME: Marycruz Vargas ADMISSION DATE: 02/09/2024 DISCHARGE DATE: 02/15/2024 ATTENDING PHYSICIAN: Rajesh Baumann MD Code Status: Full Code PCP: Dinora Bansal MD Highest Readmission Risk Score: 18 The 30 day readmissions risk score is derived from an internally validated risk model which evaluates patient level characteristics, utilization history, medication orders and lab results up until the day of discharge. Patients with a score of 40 or above are considered highest risk for readmission. Specific patient level drivers will be listed at the bottom of the summary. TRANSITIONS OF CARE CRITICAL ISSUES: VENEGAS MEDICATION CHANGES: 1. TAKE doxycycline 100 mg twice a day for 2 weeks 2. STOP taking metoprolol. Your heart rate was too low. Will differ further cardiac medication adjustments to your cardiology appointment and/or primary care doctor 3. START taking furosemide 40 mg once daily. Weight on discharge 271 lb. 4. START hibiclens wash once daily to HS affected areas on buttocks and thighs once daily. Do not use above neck. 5. CONTINUE applying clindamycin 1% lotion to HS affected areas on buttocks and thighs once daily 6. Ensure packing is changed daily to buttocks wound. 7. Zio patch placed prior to discharge Future Appointments Date Time Provider Department Center 02/15/2024 1:30 PM Ariana Naranjo V, MD DERMTW [facility] 02/26/2024 9:00 AM Pharmacist, [id number] None 03/11/2024 8:50 AM Milagros Patel MD DERMMN Mn A [facility] 06/24/2024 2:30 PM Chaparro Mehta MD CARD P Mn J [facility] 06/30/2024 10:15 AM Jeremy Armendariz MD DERMMN Ok A [facility] LABS AND PROCEDURES PENDING AT DISCHARGE: Tests to be Completed After Your Hospitalization OUTSIDE VENDOR CARDIAC OUTPATIENT EXTENDED RHYTHM RECORDING (WITHOUT TELEMETRY) Complete by: As directed REASON FOR HOSPITALIZATION/PRINCIPA L DIAGNOSES: LE edema HOSPITAL PROBLEMS: Principal Problem: Edema of both lower legs (POA: Yes) Active Problems: Hidradenitis suppurativa (POA: Yes) Essential hypertension (POA: Yes) CLL (chronic lymphocytic leukemia) (HCC) (POA: Yes) HFrEF (heart failure with reduced ejection fraction) (HCC) (POA: Yes) Leukocytosis (POA: Yes) HLD (hyperlipidemia) (POA: Yes) Atrial fibrillation (HCC) (POA: Yes) Wound of right buttock (POA: Yes) Bradycardia (POA: Yes) Rash and nonspecific skin eruption (POA: Yes) Obesity, Class I, BMI 30-34.9 (POA: Yes) Resolved Problems: * No resolved hospital problems. * HOSPITAL COURSE: Marycruz Vargas is a 64 year old male with PMH significant for: -CLL, on ibrutinib (follows with [employer]ating Systems Installer Dr. Mccabe in [place], [place]) -Afib (not on chronic ac) -HS, on Cosentyx injections -HFrEF -HLD -HTN -depression Who presented from SNF with concern for worsening b/l LE edema over the past month. No SOB, DALAL, orthopnea, cough, chest pain, palpitations. Known HFrEF, last ECHO 01/2022 EF 51%. Repeat Echo this admission with no significant change. Started Cosentyx for HS in 10/2023. In the ED he was HDS. Labs with mild hypokalemia, mild leukocytosis, CRP 2.6, ESR 16. NTproBNP nl. DVT US negative. CT A/P with stable soft tissue thickening over b/l gluteal region; chronic wound in the medial R gluteal region without fluid collection. He was admitted to Medicine and started furosemide 40 mg daily and BLLE edema resolved. Pt was noted to be bradycardic overnight 02/09 - 812. . Pt was asymptomatic during episodes. Metoprolol was discontinued. Evaluated by cardiology: Overall, give that patient is asymptomatic with telemetry revealing an intermittent Mobitz type 1 AV block, no acute indication for pacemaker placement/treatment. Patient does endorse lightheadedness in the past, but states this was related to his low blood pressure instead. Secondly, upon bedside evaluation, patient moved his legs up and down lightly and showed chronotropic competence via increased heart rate from 60 to 100 BPM without dropped beats on telemetry. Would suggest continued telemetry and ziopatch on discharge, given his known conduction disease. Would also recommend outpatient follow up with Cardiology. -Suggesting continuing telemetry -No acute indicatio (more content not included)... [facility] CNOVon 02-15-2024 CNOV Office Visit (DERMTW ) -------- MARYCRUZ VARGAS ([id number]) 1960 M [place] Date Time Provider Department 02/15/24 1:30 PM ARIANA NARANJO V DERMTW During your visit today, we recorded the following information about you: Ariana Naranjo V, MD 02/15/2024 2:35 PM Signed PROGRESS NOTE: Parts of the documentation for this note were completed by CASSIE Lombardo for Ariana Naranjo MD. February 15, 2024 1:27 PM. Marycruz Vargas is a 64 year old male here for: Chief Complaint: hidradenitis suppurativa History of Present Ilness: Location: Right hip Duration: 1 months Symptoms (growing, itching, bleeding, tender): Change in skin color Current treatment: Doxycycline 100mg, Cosentyx, Clindamycin 1% lotion Past treatments: Humira, oral antibiotics, BPO wash, as above Narrative/Interval history: Overall doing OK today. Taking all medications as prescribed. Currently is in a prison for [facility]. Has CLL. Pertinent Past Medical History: History of melanoma? No History of non melanoma skin cancer? No History of atypical nevi? No History of blistering sunburns? No History of tanning bed use? No History of organ transplantation? No History of immunosuppression/exposu re to radiation? No He has a past medical history of Abscess, groin, Anemia of chronic disease (12/20/2016), Essential hypertension, Hepatitis B carrier (HCC), HFrEF (heart failure with reduced ejection fraction) (HCC), Hidradenitis suppurativa, Iron deficiency anemia (12/20/2016), Low HDL (under 40) (07/17/2017), Mixed hyperlipidemia, Situational depression (07/18/2018), and Smoker (12/20/2016). Pertinent Family Medical History: History of melanoma? No Pertinent Social History: Current Smoker? No Other: : N/A : N/A Pacemaker/Defibrillator: No Aspirin/anticoagulant use: No History of valve replacement: No History of joint replacement: No Review of Systems: Constitutional: - Fever: No, chills: No, night sweats: No, cough: No, muscle aches: No, unintentional weight loss: No. Skin: No other skin complaints except as noted in HPI. Physical Exam: WD, WN, NAD. Normal mood and affect. Exam included: Face R arm L arm R leg L leg All normal except: - Limited exam today. Assessment and Plan: 1. Hidradenitis suppurativa 2. Dissecting cellulitis of scalp - Stable. 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 No additional concerns today. Continue Cosentyx, doxycycline, and clindamycin lotion as prescribed. Labs/Imaging reviewed: Yes Prior pathology reviewed: No Outside records reviewed: No External notes from each unique source reviewed: No Procedures: N/A Medical Decision Making: Problems: Low: Stable chronic illness Risk: Moderate: Drug management Medical Decision Making Level: 3 - Low Return if symptoms worsen or fail to improve. or sooner if concerns/questions. Medications / Allergies / Immunizations: has a current medication list which includes the following prescription(s): clindamycin phosphate, doxycycline hyclate, furosemide, potassium chloride, cosentyx pen (2 pens), cosentyx pen (2 pens), molnupiravir, ascorbic acid (vitamin c), atorvastatin, vitamin d2, temazepam, acetaminophen, lactobacillus rhamnosus, ibrutinib, ketoconazole, therapeutic multivitamin-minerals, ondansetron, calcium carbonate, paroxetine, and folic acid. ALLERGIES No Known Allergies I agree with the Chief Complaint, ROS, and Past Histories independently gathered by the clinical network support and the remaining scribed note accurately describes my personal service to the patient. Ariana Naranjo MD Dermatology Allergies As of Date: 02/15/2024 (No Known Allergies) Date Reviewed: 02/15/2024 Reviewed by: Stacey Ho OCCA - Fully Assessed Reason for Visit: hidradenitis suppurativa [Other] Primary Visit Diagnosis:Hidradenitis suppurativa [L73.2] Other Visit Diagnosis:Dissecting cellulitis of scalp [L66.3] Prescriptions as of 02/15/2024 - Clindamycin Phosphate (CLEOCIN T) 1 % lotion Apply to affected area once daily for 14 days. - doxycycline hyclate (VIBRAMYCIN) 100 mg capsule Take 1 capsule (100 mg) by mouth every 12 hours at 6 am and 6 pm for 26 doses. - furosemide (LASIX) 40 mg tablet Take 1 tablet by mouth once daily. - potassium chloride (KLOR-CON) 20 mEq packet Take 20 mEq by mouth once daily. - secukinumab (COSENTYX PEN, 2 PENS,) 150 mg/mL Inject 300mg (2 pens) subcutaneously at weeks 0,1,2,3 and 4, then 300mg (2 pens) every 4 weeks thereafter - secukinumab (COSENTYX PEN, 2 PENS,) 150 mg/mL Inject 300mg (2 pens) every 4 weeks - molnupiravir 200 mg capsule - ascorbic acid, vitamin C, (VITAMIN C) 500 mg tablet Take 500 mg by mouth every other day. - atorvastatin (LIPITOR) 10 mg tablet Take 10 mg by mouth daily at bedtime. - VITAMIN D2 1,250 mcg (50,000 (more content not included)... Normal [facility] NURSING PROGon 02-15-2024 NURSING PROG HNO ID: [id number] Author: FLY PHILLIPS RN Service: Nursing Author Type: Registered Nurse Type: Nursing Progress Note Filed: 02/15/2024 12:26 Note Text: Attempted to call [facility], no answer at nurses station. 1225- report given to T[facility] nurse at [facility]. [facility] CASE MANAGEMon 02-14-2024 CASE MANAGEM HNO ID: [id number] Author: EVON PATEL RN Service: ? Author Type: Registered Nurse Type: Care Mgt Progress Note Filed: 02/14/2024 15:23 Note Text: CARE MANAGEMENT PROGRESS NOTE SERVICE DATE: 02/14/2024 SERVICE TIME: 3:22 PM LOS: 4 days Needs Prior to Discharge: Other: See Comment (awaiting appeal) Appeal pending. S transport scheduled for tomorrow 02/14 at 1730. CM will continue to follow and update transitional plan as needed and appropriate through discharge. SIGNATURE: Evon Patel RN PATIENT NAME: Marycruz Vargas DATE: February 14, 2024 TIME: 3:21 PM PAGER/CONTACT #: [phone] [facility] CASE MANAGEM HNO ID: [id number] Author: EVON PATEL RN Service: ? Author Type: Registered Nurse Type: Care Mgt Progress Note Filed: 02/14/2024 09:22 Note Text: CARE MANAGEMENT PROGRESS NOTE SERVICE DATE: 02/14/2024 SERVICE TIME: 9:21 AM LOS: 4 days Needs Prior to Discharge: Other: See Comment (Awaiting appeal) Case Control ID#: [id number] SIGNATURE: Evon Patel RN PATIENT NAME: Marycruz Vargas DATE: February 14, 2024 TIME: 9:21 AM PAGER/CONTACT #: [phone] [facility] CASE MANAGEMon 02-13-2024 CASE MANAGEM HNO ID: [id number] Author: EVON PATEL RN Service: ? Author Type: Registered Nurse Type: Care Mgt Progress Note Filed: 02/13/2024 15:15 Note Text: CARE MANAGEMENT PROGRESS NOTE SERVICE DATE: 02/13/2024 SERVICE TIME: 2:30 PM LOS: 3 days Patient/patient support representative have elected to appeal their discharge. The patient cannot be made to leave the hospital until there is a determination on the outcome of their appeal. Patient/patient support representative provided a copy of DND at 1458. DND and necessary documentation sent to [facility]. Awaiting documentation from [facility]. SIGNATURE: Evon Patel RN PATIENT NAME: Marycruz Vargas DATE: February 13, 2024 TIME: 2:29 PM PAGER/CONTACT #: [phone] [facility] CASE MANAGEM HNO ID: [id number] Author: EVON PATEL RN Service: ? Author Type: Registered Nurse Type: Care Mgt Progress Note Filed: 02/13/2024 15:24 Note Text: CARE MANAGEMENT PROGRESS NOTE SERVICE DATE: 02/13/2024 SERVICE TIME: 3:17 PM LOS: 3 days Needs Prior to Discharge: Other: See Comment (Awaiting appeal) Pt is appealing discharge. S transport rescheduled for tomorrow 8/15 at 1730 to go to ECF [facility] pending appeal. Facility, team, and pt updated. CM will continue to follow and update transitional plan as needed and appropriate through discharge. SIGNATURE: Evon Patel RN PATIENT NAME: Marycruz Vargas DATE: February 13, 2024 TIME: 3:17 PM PAGER/CONTACT #: [phone] [facility] CASE MANAGEMon 02-12-2024 CASE MANAGEM HNO ID: [id number] Author: EVON PATEL RN Service: ? Author Type: Registered Nurse Type: Care Mgt Progress Note Filed: 02/12/2024 14:46 Note Text: CARE MANAGEMENT PROGRESS NOTE SERVICE DATE: 02/12/2024 SERVICE TIME: 2:37 PM LOS: 2 days Needs Prior to Discharge: Other: See Comment;Discharge Transportation (Derm appointment) Pt would like to return to [facility] ECF so he can build strength and increase balance before going back home. Facility [facility] and follow precert but pt does not have any PT/OT needs. Per pt, he has a dermatology appointment Wednesday 02/14 at 1330. SIGNATURE: Evon Patel RN PATIENT NAME: Marycruz Vargas DATE: February 12, 2024 TIME: 2:37 PM PAGER/CONTACT #: [phone] [facility] CONSULT PROGon 02-12-2024 CONSULT PROG HNO ID: [id number] Author: SAHIL WICK MD Service: Dermatology Author Type: Physician Type: Consult Progress Note Filed: 02/12/2024 23:38 Note Text: DERMATOLOGY HOSPITAL CONSULT SERVICE PROGRESS NOTE Interval Events - HS lesions stable compared to previous - Packing of right buttock lesions in place PHYSICAL EXAM BP 131/64 Pulse 77 Temp 36.5 ?C (97.7 ?F) (Oral) Resp 16 Ht 193 cm (6' 4) Wt 125.6 kg (276 lb 14.4 oz) SpO2 99% BMI 33.71 kg/m? GEN: Age appropriate Skin examination was performed of the scalp, face, neck, back, BUE including hands, BLE including feet, buttocks, groin, and was pertinent for: - nodules, extensive scarring, and sinus tracts affecting the b/l buttocks. Pt with packing of right buttock scarred sinus tract. - draining nodules left posterior thigh - BLE edema DATA LABORATORY TESTS: CBC: Recent Labs 02/11/2444802/09/246 WBC 8.94 11.84* HB 12.0* 11.7* HCT 41.9 39.2 PLT 200 223 MCV 83.6 78.4* RDWCV 16.1* 15.9* NEUTP -- 50.9 ABSNEUT -- 6.03 LYMPHP -- 44.9 MONOP -- 2.5 COAG: No results for input(s): APTT, INR in the last 168 hours. BMP: Recent Labs 02/11/2444802/10/24 0802/09/24 225 GLUC 72* 84 91 NA 140 139 138 K 4.2 3.6* 3.6* CHLOR 105 104 102 CO2 21* 23 25 ANION 14 12 11 BUN 13 16 19 CREAT 0.85 0.92 0.97 CHEM: Recent Labs 02/11/2444802/10/24 0802/09/246 ALB 3.3* 3.5* -- TPROT -- 6.7 -- CA 9.0 8.9 9.0 MG -- -- 2.2 HEPATIC: Recent Labs 02/10/24803 ALKPHOS 96 ALT 12 AST 16 TBILI 0.4 IMAGING: N/a BIOPSY: N/a ASSESSMENT: Marycruz Vargas is a 64 year old male patient with a past medical history of: CLL on ibrutinib, AFib, HS, dissecting cellulitis, HFrEF, anemia, HLD, HTN, and depression who presented to the ED with leg swelling ongoing for one month. Derm was consulted for HS management. HS affected areas include the buttocks and thighs. Denies involvement of axillae. Previously seen by Drs. Armendariz and Kaushik in derm clinic. Currently on Cosentyx (Recently started). Has previously tried Humira, anakinra, prednisone, rifampin, metformin, zinc gluconate, keflex, minocycline, clindamycin, BPO, and surgery. Pt reports these have been ineffective as they do not address the underlying issue. Advised follow up outpatient to establish/maintain care with dermatology for HS management. We had an extensive discussion regarding signs, symptoms, and expectations of HS. Reviewed that HS is an inflammatory condition which affects hair follicles and clinical findings can be observed in hair bearing areas. Discussed that HS is very unlikely to provide an encompassing explanation for the symptoms that the patient is experiencing, and that will require investigation by other teams as it is beyond the skin. Pt feels strongly that his ongoing concerns can be attributed to his HS condition. PLAN: (Not final until signed by staff physician) - Given some active drainage from left thigh area - start doxycyline 100 mg BID x 2 weeks, reports he has taken in the past and tolerated. - Start hibiclens wash once daily to HS affected areas on buttocks and thighs once daily. Do not use above neck. - Continue applying clindamycin 1% lotion to HS affected areas on buttocks and thighs once daily - Ensure packing is changed daily. Patient aware of this recommendation. - Recommend multi-disciplinary care approach for addressing patient's concerns. - Consider plastics appt outpatient to discuss surgical options for extensive scarring. Pt interested in consultation. - Has derm appt 02/14 which we advised him to keep for close follow up. In the group home - pt prefers to continue to follow with Dr. Faulkner for who is familiar with his care - we will also reach out to schedule 1 month follow up at [facility] in resident clinic to be staffed with Dr. Faulkner. Thank you for allowing us to participate in this patient's care. We will sign off at this time. Please re-consult us should any new concerns arise. Patient seen and discussed with attending linen worker, Dr. Cara Carcamo MD Dermatology, PGY-3 Please use consult pager [phone], Mon-Fri 8am-5pm. Please call bevel mill operator for on-call resident/pager during all other hours. Attestation: I was physically present during the critical/venegas portions of this encounter and during all procedures, and agree with the above evaluation, assessment, and treatment plan. I reviewed the patient's chart and discussed care with the patient, Resident. There were no procedures performed during this patient's visit. The resident's note was annotated by me as needed to reflect my direct input. Sahil Wick MD [facility] CASE MANAGEM HNO ID: [id number] Author: SANJUANA MATOS HUC Service: ? Author Type: Health Fuse Coiler Type: Care Mgt Progress Note Filed: 02/11/2024 15:23 Note Text: CARE MANAGEMENT PROGRESS NOTE SERVICE DATE: 02/11/2024 SERVICE TIME: 3:23 PM LOS: 1 day Assisted patient in completing HCPOA paperwork. Patient named Fred, brother as agent. Hard copy of HCPOA paperwork placed on patient's green chart and copy sent to Admitting via pneumatic tube.system to be scanned into [employer]. Patient provided with original document and one copy provided per patient's request. SIGNATURE: Sanjuana Matos CMA PATIENT NAME: Marycruz Vargas DATE: February 11, 2024 TIME: 3:22 PM PAGER/CONTACT #: [phone] [facility] CASE MGT INIT Enrique [address] [facility] HNO ID: [id number] Author: EVON PATEL RN Service: ? Author Type: Registered Nurse Type: Care Mgt Initial Assessment Filed: 02/11/2024 13:09 Note Text: CARE MANAGEMENT: ASSESSMENT AND DISCHARGE PLAN SERVICE DATE: February 11, 2024 SERVICE TIME: 12:43 PM PCP: Dinora Bansal MD Primary Contact: Extended Emergency Contact Information Primary Emergency Contact: Fred Vargas Jr. Mobile Relation: Brother Admission Status: Inpatient Insurance Provider: UHC MEDICARE ADVANTAGE PPO Discharge Planning requested by: Per Department Practice Potential Transition Plans Shelter Facility/Intermediate Care Facility Advance Directives Current Advance Directive: None Agriculture Professor Attempted to Assist with AD Completion: Yes Action: Education Provided (PSYCHOMETRIST tasked to assist with AD) Current Living Arrangements and Support Lives with: Other person(s) (ECF) Type of Residence: Other: See Comment Other Type of Residence: ECF Support: Family members, Friends/neighbors How do you manage to accomplish the following: Independent: Bathe/Shower;Dress;Meals /Meal Prep;Going to the bathroom;Medication Management Needs Assistance: Ambulation Dependent: Transportation to appointments/community Current Services/Equipment Current Post-Acute Service(s): DME Current DME Type: Rolling walker, Wheelchair-manual Discharge Planning Patient Goal(s): Better mobility, Increase strength, Be able to go home [employer] of Choice Explained: [employer] Choice Given: Yes Level of Care Discussed: Shelter Facility Are you interested in bedside delivery of your medications? No Discharge Planning Participant(s): Patient Caregiver Assessment: Caregiver is ready, willing and able to meet the patient's needs as recommended by the inter-professional team: No Transport at Discharge: Transportation Arrangements: To Be Determined Needs Prior to Discharge: Needs Prior to Discharge: To Be Determined;Accepting Facility;Precertificatio n;Discharge Transportation Post-Acute Discharge Plan: 64 year old male presenting for BLE edema and toxins leaving my body. Hx of hidradenitis, pt c/o oils draining from his scalp all the way to his legs. Here for wound care. Pt believes the [facility] is the best place to get treatment for the above condition. Pt would like to return to [facility] so he can build strength and increase balance before going back home. [facility] tasked to build and send referral. PSYCHOMETRIST tasked to assist with AD. CM will continue to follow and update transitional plan as needed and appropriate through discharge. SIGNATURE: Evon Patel RN PATIENT NAME: Marycruz Vargas DATE: February 11, 2024 TIME: 12:43 PM CONTACT #: [id number] Normal [facility] CBC panel Auto (Bld)on 02-10 Erythrocyte distribution width (RBC) [Ratio] 16.1 % High 11.5-15.0 [facility] Comment on above: Order Comment: Speci men Type: BLOOD SPECIMENOrdering Facility: [facility] Address: [address] [place] [address] Performed By: #### 5 8410-2 ####[facility] LABCLIA [id number] [place] [address] [place] Hematocrit (Bld) [Volume fraction] 41.9 % Normal 39.0-51.0 [facility] Comment on above: Order Comment: Speci men Type: BLOOD SPECIMENOrdering Facility: [facility] Address: [address] [place] [address] Performed By: #### 5 8410-2 ####[facility] LABCLIA [id number] [place] [address] [place] Hemoglobin (Bld) [Mass/Vol] 12.0 g/dL Low 13.0-17.0 [facility] Comment on above: Order Comment: Speci men Type: BLOOD SPECIMENOrdering Facility: [facility] Address: [address] [place] [address] Performed By: #### 5 8410-2 ####[facility] LABIA [id number] [place] [address] [place] MCH (RBC) [Entitic mass] 24.0 pg Low 26.0-34.0 [facility] Comment on above: Order Comment: Speci men Type: BLOOD SPECIMENOrdering Facility: [facility] Address: [address] [place] [address] Performed By: #### 5 8410-2 ####[facility] LABIA [id number] [place] [address] [place] MCHC (RBC) [Mass/Vol] 28.6 g/dL Low 30.5-36.0 [facility] Comment on above: Order Comment: Speci men Type: BLOOD SPECIMENOrdering Facility: [facility] Address: [address] [place] [address] Performed By: #### 5 8410-2 ####[facility] LABIA [id number] [place] [address] [place] MCV (RBC) [Entitic vol] 83.6 fL Normal 80.0-100.0 [facility] Comment on above: Order Comment: Speci men Type: BLOOD SPECIMENOrdering Facility: [facility] Address: [address] [place] [address] Performed By: #### 5 8410-2 ####[facility] LABIA [id number] [place] [address] [place] Nucleated RBC (Bld) [#/Vol] 10*3/uL Normal <0.01 [facility] Comment on above: Order Comment: Speci men Type: BLOOD SPECIMENOrdering Facility: [facility] Address: [address] [place] [address] Performed By: #### 5 8410-2 ####[facility] LABCLIA [id number] [place] [address] [place] Platelet mean volume (Bld) [Entitic vol] 12.0 fL Normal 9.0-12.7 [facility] Comment on above: Order Comment: Speci men Type: BLOOD SPECIMENOrdering Facility: [facility] Address: [address] [place] [address] Performed By: #### 5 8410-2 ####[facility] LABIA [id number] [place] [address] [place] Platelets (Bld) [#/Vol] 200 10*3/uL Normal 150-400 [facility] Comment on above: Order Comment: Speci men Type: BLOOD SPECIMENOrdering Facility: [facility] Address: [address] [place] [address] Performed By: #### 5 8410-2 ####[facility] LABIA [id number] [place] [address] [place] RBC (Bld) [#/Vol] 5.01 10*6/uL Normal 4.20-6.00 [facility] Comment on above: Order Comment: Speci men Type: BLOOD SPECIMENOrdering Facility: [facility] Address: [address] [place] [address] Performed By: #### 5 8410-2 ####[facility] LABIA [id number] [place] [address] [place] WBC (Bld) [#/Vol] 8.94 10*3/uL Normal 3.70-11.00 [facility] Comment on above: Order Comment: Speci men Type: BLOOD SPECIMENOrdering Facility: [facility] Address: [address] [id number] Performed By: #### 5 8410-2 ####[facility] LABCLIA [id number] [facility] [id number] [id number] [place] CONSULTon 02-11-2024 CONSULT HNO ID: [id number] Author: SAHIL WICK MD Service: Dermatology Author Type: Physician Type: Consults Filed: 02/11/2024 23:08 Note Text: DERMATOLOGY INPATIENT CONSULT HISTORY AND PHYSICAL Patient Name: Marycruz Vargas Date of Evaluation: February 11, 2024 Admission Date: 02/09/2024 Requesting Service: GIM Chief Complaint: HS HPI: Marycruz Vargas is a 64 year old male patient with a past medical history of: CLL on ibrutinib, AFib, HS, dissecting cellulitis, HFrEF, anemia, HLD, HTN, and depression who presented to the ED with leg swelling ongoing for one month. Admitted for suspected AMS. Derm was consulted for HS management. HS affected areas include the buttocks and thighs. Denies involvement of axillae. Previously seen by Drs. Armendariz and Kaushik in derm clinic. Currently on Cosentyx. Cosentyx recently started - per pt has completed loading dose and one maintenance dose. Had missed one dose. Has previously tried Humira, anakinra, prednisone, rifampin, metformin, zinc gluconate, keflex, minocycline, clindamycin, BPO, and surgery. Pt reports these have been ineffective as they do not address the underlying issue. Pt expressed his leading concern are the toxins and poisons in his body that seep out through his scalp and fingers as a waxy substance. Feels this is caused by the HS and that the leg swelling is a reflection of the toxins accumulating in his body. Suspects these toxins are causing internal damage as his HR has been lower as of late. Reports toxic dust and dirt is being excreted by his body and is present even after showering. Pt demonstrated this for primary team as detailed in today's progress note. PERTINENT ROS: See HPI. Current Facility-Administered Medications Medication Dose Route Frequency ibrutinib 420 mg tab(s) (IMBRUVICA) 420 mg ORAL DAILY NaCl 0.9% iv flush bag 20 mL INTRAVENOUS PRN acetaminophen 650 mg tab(s) (TYLENOL) 650 mg ORAL q 6 H PRN calcium carbonate 500 mg chewable tab(s) (TUMS) 500 mg ORAL DAILY lactobacillus rhamnosus 10 billion cell (CULTURELLE) capsule 1 capsule ORAL BID atorvastatin 10 mg tab(s) (LIPITOR) 10 mg ORAL AT BEDTIME folic acid 1 mg tab(s) 1 mg ORAL DAILY multivitamin-ferrous fumarate-folic acid 1 tablet (CENTRUM) 1 tablet ORAL DAILY temazepam 15 mg cap(s) (RESTORIL) 15 mg ORAL AT BEDTIME PARoxetine 30 mg tab(s) (PAXIL) 30 mg ORAL DAILY ascorbic acid (vitamin C) 500 mg tab(s) (VITAMIN C) 500 mg ORAL q 48 H potassium chloride 40 mEq oral powder (KLOR-CON) 40 mEq ORAL DAILY sodium chloride 0.9 % (flush) 2-10 mL (BD POSIFLUSH) 2-10 mL INTRAVENOUS DIRECTED PRN And perflutren lipid microspheres 1.1 mg/mL 1.3 mL injection (Oracle YouthITY) 1.3 mL INTRAVENOUS DIRECTED PRN sodium hypochlorite 0.125 % (DAKIN'S QUARTER STRENGTH) IRRIGATION DAILY furosemide 40 mg tab(s) (LASIX) 40 mg ORAL DAILY Current Facility-Administered Medications Medication Dose Route Frequency NaCl 0.9% iv flush bag 20 mL INTRAVENOUS PRN acetaminophen 650 mg tab(s) (TYLENOL) 650 mg ORAL q 6 H PRN calcium carbonate 500 mg chewable tab(s) (TUMS) 500 mg ORAL DAILY lactobacillus rhamnosus 10 billion cell (CULTURELLE) capsule 1 capsule ORAL BID atorvastatin 10 mg tab(s) (LIPITOR) 10 mg ORAL AT BEDTIME folic acid 1 mg tab(s) 1 mg ORAL DAILY multivitamin-ferrous fumarate-folic acid 1 tablet (CENTRUM) 1 tablet ORAL DAILY temazepam 15 mg cap(s) (RESTORIL) 15 mg ORAL AT BEDTIME PARoxetine 30 mg tab(s) (PAXIL) 30 mg ORAL DAILY ascorbic acid (vitamin C) 500 mg tab(s) (VITAMIN C) 500 mg ORAL q 48 H potassium chloride 40 mEq oral powder (KLOR-CON) 40 mEq ORAL DAILY sodium chloride 0.9 % (flush) 2-10 mL (BD POSIFLUSH) 2-10 mL INTRAVENOUS DIRECTED PRN And perflutren lipid microspheres 1.1 mg/mL 1.3 mL injection (DEFINITY) 1.3 mL INTRAVENOUS DIRECTED PRN sodium hypochlorite 0.125 % (DAKIN'S QUARTER STRENGTH) IRRIGATION DAILY furosemide 40 mg tab(s) (LASIX) 40 mg ORAL DAILY ibrutinib 420 mg tab(s) (IMBRUVICA) 420 mg ORAL DAILY PAST MEDICAL HISTORY No date: Abscess, groin 12/20/2016: Anemia of chronic disease Comment: Per heme during inpatient stay 11/2016 No date: Essential hypertension No date: Hepatitis B carrier (HCC) No date: HFrEF (heart failure with reduced ejection fraction) (HCC) No date: Hidradenitis suppurativa 12/20/2016: Iron deficiency anemia 07/17/2017: Low HDL (under 40) No date: Mixed hyperlipidemia 07/18/2018: Situational depression 12/20/2016: Smoker Comment: Started at age 16, Up to a PPD and as of 12/20/2016 doing about 1/2 PPD Social History Tobacco Use Smoking status: Former Packs/day: 0.40 Years: 40.00 Additional pack years: 0.00 Total pack years: 16.00 Types: Cigarettes Smokeless tobacco: Never Tobacco comments: 4-5 cigarettes daily Vaping Use Vaping Use: Never used Substance Use Topics Alcohol use: No Comment: rarely Drug use: Never ALLERGIES: ALLERGIES (more content not included)... Normal [facility] CONSULT HNO ID: [id number] Author: CHAPARRO MEHTA MD Service: Cardiovascular Medicine Author Type: Physician Type: Consults Filed: 02/11/2024 21:07 Note Text: [facility] CONSULT HISTORY AND PHYSICAL Marycruz Vargas [id number] Admit Date: 02/09/2024 LOS: 1 PRIMARY SERVICE: Cardiology: Consult ATTENDING PHYSICIAN: CHAPARRO MEHTA CHIEF COMPLAINT: asymptomatic bradycardia. HPI: Cardiac consultation at the request of Pau Tsang APRN.COOPERER. A copy of this consultation note will be provided to the requesting physician by way of shared Medical Record or letter to requesting physician via US mail. Marycruz Vargas is a 64yo male with pmh of HFrEF (EF 51% 01/2022), afib (no longer on xarelto), HTN, HLD, HS, depression who presented to the ED yesterday with bilateral lower extremity edema for the last month. Patient states swelling never completely goes away, but believes his current reason for admission is due to starting Cosentyx injections in October for his HS. In ED: bradycardic (50s), otherwise HDS. He denied SOB, fevers, chills, cough, dysuria, change in wound drainage, chest pain, and palpitations. Admitted, started on telemetry for his bradycardia and his home dose of lasix 40mg was resumed. Echo ordered to reassess EF. Today: HR dropped to 32 @ 742 AM. Patient was asymptomatic and attending was notified. Got an EKG this afternoon is preliminary result of 1st degree AV block and sinus bradycardia. When I saw the patient he stated he was doing fine and just wanted the toxins and dirt removed from his system. He denied any SOB, dizziness, CP, N/V. Endorsed lightheadedness but states this is not new and comes and goes. Cardiac meds: metoprolol 25mg PAST MEDICAL HISTORY: PAST MEDICAL HISTORY No date: Abscess, groin 12/20/2016: Anemia of chronic disease Comment: Per heme during inpatient stay 11/2016 No date: Essential hypertension No date: Hepatitis B carrier (HCC) No date: HFrEF (heart failure with reduced ejection fraction) (HCC) No date: Hidradenitis suppurativa 12/20/2016: Iron deficiency anemia 07/17/2017: Low HDL (under 40) No date: Mixed hyperlipidemia 07/18/2018: Situational depression 12/20/2016: Smoker Comment: Started at age 16, Up to a PPD and as of 12/20/2016 doing about 1/2 PPD PAST SURGICAL HISTORY: PAST SURGICAL HISTORY No date: IANDD PERIANAL ABSCESS SUPERFICIAL; Bilateral Comment: 12 yrs ago FAMILY HISTORY: FAMILY HISTORY Problem Relation Age of Onset Hypertension Mother Diabetes Father SOCIAL HISTORY: Social History Tobacco Use Smoking status: Former Packs/day: 0.40 Years: 40.00 Additional pack years: 0.00 Total pack years: 16.00 Types: Cigarettes Smokeless tobacco: Never Tobacco comments: 4-5 cigarettes daily Vaping Use Vaping Use: Never used Substance Use Topics Alcohol use: No Comment: rarely Drug use: Never MEDICATIONS: Prior to Admission Medications: clindamycin (CLEOCIN-T) 1 % gelApply to affected area two times a day for 14 days.Disp: 60 gRfl: 0 secukinumab (COSENTYX PEN, 2 PENS,) 150 mg/mLInject 300mg (2 pens) subcutaneously at weeks 0,1,2,3 and 4, then 300mg (2 pens) every 4 weeks thereafterDisp: 8 EachRfl: 11 secukinumab (COSENTYX PEN, 2 PENS,) 150 mg/mLInject 300mg (2 pens) every 4 weeksDisp: 2 EachRfl: 11 molnupiravir 200 mg capsuleDisp: Rfl: Clindamycin Phosphate (CLEOCIN T) 1 % lotionApply to affected areas twice dailyDisp: 60 mLRfl: 2 ascorbic acid, vitamin C, (VITAMIN C) 500 mg tabletTake 500 mg by mouth every other day.Disp: Rfl: atorvastatin (LIPITOR) 10 mg tabletTake 10 mg by mouth daily at bedtime.Disp: Rfl: cephALEXin (KEFLEX) 500 mg capsuleTake 500 mg by mouth two times a day.Disp: Rfl: VITAMIN D2 1,250 mcg (50,000 unit) capsuleTake 50,000 Units by mouth every Sunday.Disp: Rfl: metoprolol tartrate, short acting, (LOPRESSOR) 25 mg tabletTake 25 mg by mouth two times a day.Disp: Rfl: minocycline (MINOCIN, DYNACIN) 100 mg capsuleTake 100 mg by mouth two times a day.Disp: Rfl: temazepam (RESTORIL) 15 mgTake 15 mg by mouth daily at bedtime.Disp: Rfl: acetaminophen (TYLENOL) 325 mg tabletTake 650 mg by mouth every 6 hours as needed for pain.Disp: Rfl: lactobacillus rhamnosus (CULTURELLE) 10 billion cell capsuleTake 1 capsule by mouth two times a day.Disp: Rfl: ibrutinib (IMBRUVICA) 420 mg tabletTake 1 tablet by mouth once daily.Disp: Rfl: ketoconazole (NIZORAL) 2 % shampooApply to affected area once daily as needed (dry skin).Disp: Rfl: loperamide (IMODIUM) 2 mg cap(s)Take 2 mg by mouth four times a day as needed for diarrhea.Disp: Rfl: therapeutic multivitamin-minerals (THERA-M PLUS) 9 mg iron-400 mcg tabletTake 1 tablet by mouth once daily.Disp: Rfl: ondansetron (ZOFRAN) 4 mg tabletTake 4 mg by mouth every 4 hours as needed for nausea/vomiting.Disp: Rfl: calcium carbonate (TUMS) 500 mg chewTake 500 mg by mouth once daily.Disp: (more content not included)... Normal [facility] ECG COMPLETEon 02-11-2024 ECG COMPLETE Ventricular Rate : 5 9 BPM Atrial Rate : 59 BPM P-R Interval : 258 ms QRS Duration : 158 ms Q-T Interval : 446 ms QTC Calculation(Bazett) : 441 ms Calculated P Kenner : 59 degrees Calculated R Kenner : -60 degrees Calculated T Kenner : 20 degrees SINUS BRADYCARDIA WITH 1ST DEGREE AV BLOCK COMPLETE RIGHT BUNDLE BRANCH BLOCK LEFT ANTERIOR FASCICULAR BLOCK BIFASCICULAR BLOCK MINIMAL VOLTAGE CRITERIA FOR LVH, MAY BE NORMAL VARIANT ( R in aVL ) ABNORMAL ECG Confirmed by PRASANNA RILEY MD ([id number]) on 03/12/2024 11:06:56 AM NAME : MARYCRUZ VARGAS PID : [id number] : 1960 Gender : Male Race : Other ORD : [id number] Procedure Date : Feb 11 2024 13:54:37 Edit Date : Mar 12 2024 11:06:57 Diagnosis: SINUS BRADYCARDIA WITH 1ST DEGREE AV BLOCK COMPLETE RIGHT BUNDLE BRANCH BLOCK LEFT ANTERIOR FASCICULAR BLOCK BIFASCICULAR BLOCK MINIMAL VOLTAGE CRITERIA FOR LVH, MAY BE NORMAL VARIANT ( R in aVL ) ABNORMAL ECG Confirmed by PRASANNA RILEY MD ([id number]) on 03/12/2024 11:06:56 AM Test Reason : B/P TREMOR Location : 74 : H71 H071-11 Overread By : PRASANNA RILEY MD Edited By : PRASANNA RILEY MD Referred By : , Acquired by : OSWALDO LIZAMA [facility] ECHOon 02-11-2024 Echocardiography Echocardiography Rep ort: Transthoracic Echo Main [place] Bedside Date of service: 02/11/2024 11:35:35 AM PRESSER Ordering physician: MYCHAL BARRIOS Indication: hypotension - assess lv Technologist: Jose Beth [facility] Fellow: Alberto Chandra MD Interpreting physician: Micah Tobar MD PATIENT: Name: MARYCRUZ VARGAS : 1960 Age: 64 years Gender: M Primary rhythm: sinus. Height: 193.00 cm BSA: 2.54 m Weight: 120.20 kg BMI: 32.3 kg/m Heart rate 60 bpm Blood pressure 126/55 mmHg Technically difficult exam due to body habitus and suboptimal positioning. Color Doppler was utilized to interrogate the cardiac valves assessed and spectral Doppler was utilized to determine the flow velocities and pressure gradients reported in this exam. MEASUREMENTS: Value Indexed Normal Max aortic dimension 3.6 cm Ao < 3.8 Left atrial volume 66 ml (4ch A-L) 26 ml/m Cristo <= 34 LV ID (diastole) 5.7 cm (2D) 2.25 cm/m LV ID (systole) 3.6 cm (2D) 1.42 cm/m IVS, leaflet tips 1.1 cm (2D) Posterior wall thickness 1.1 cm (2D) Left ventricular mass 257 g (2D) 101 g/m LV stroke volume 80 ml (2D 4-ch.) LV end diastolic volume 140 ml (2D 4-ch.) 55.3 ml/m 34<=EDVi<75 LV end systolic volume 61 ml (2D 4-ch.) 23.8 ml/m Ejection Fraction 57 % (2D 4-ch.) EF > 52 FINDINGS: LEFT VENTRICLE The left ventricle is normal in size. Left ventricular systolic function is normal. Normal left ventricular diastolic function. Mitral annular lateral E/e': 4.3. Mitral annular septal E/e': 6.7. Wall Motion: All scored segments are normal. RIGHT VENTRICLE The right ventricle is normal in size. Right ventricular systolic function is normal. RV systolic tissue Doppler velocity is 14.3 cm/s. Estimated right ventricular systolic pressure is likely underestimated due to a weak or incomplete tricuspid regurgitation signal and is, at least, 40 mmHg consistent with mild pulmonary hypertension. Estimated right atrial pressure is 8 mmHg based on IVC assessment. LEFT ATRIUM The left atrial cavity is normal in size. Pulmonary Veins: The pulmonary venous pattern showed normal systolic flow. RIGHT ATRIUM The right atrial cavity is normal in size. Inferior Vena Cava: The inferior vena cava appears normal measuring 1.1 cm. The vessel decreases less than 50 percent with inspiration. MITRAL VALVE The mitral valve leaflets are structurally normal. There is trace mitral valve regurgitation. The pressure half time is 67 msec. The peak mitral E/A ratio is 0.93. The average mitral E/e' ratio is 5.5. The mitral flow deceleration time is 232 msec. TRICUSPID VALVE The tricuspid valve leaflets are structurally normal. There is trace (trace - 1+) tricuspid valve regurgitation. AORTIC VALVE There is no aortic valve regurgitation. Tricuspid aortic valve. There is mild thickening of the right, left and non coronary aortic cusps. There is mild calcification. PULMONIC VALVE The pulmonic valve was not seen or not interrogated. There is trace pulmonic valve regurgitation. AORTA The visualized aorta is normal in size. Measurements - Aortic valve annulus 2.3 cm. Sinus: 3.6 cm. PERICARDIUM There is no pericardial effusion. CONCLUSIONS: - Technically difficult exam due to body habitus and suboptimal positioning. - Exam indication: hypotension - assess lv - The left ventricle is normal in size. Left ventricular systolic function is normal. EF = 57 5% (2D 4-ch.) Normal left ventricular diastolic function. - The right ventricle is normal in size. Right ventricular systolic function is normal. - There are no significant valvular abnormalities. - Exam was compared with the prior OUTSIDE echocardiographic exam performed on 02/13/2022. No significant change. * * * Final * * * CC [facility] : [id number] Normal [facility] Renal function 2000 panelon 02-11-2024 Albumin [Mass/Vol] 3.3 g/dL Low 3.9-4.9 [facility] Comment on above: Order Comment: Speci men Type: BLOOD SPECIMENOrdering Facility: [facility] Address: [address] [place] [address] Performed By: #### 2 4362-6 ####[facility] LABCLIA [id number] [place] [address] [place] Anion gap [Moles/Vol] 14 mmol/L Normal - [facility] Comment on above: Order Comment: Speci men Type: BLOOD SPECIMENOrdering Facility: [facility] Address: [address] [id number] Performed By: #### 2 4362-6 ####[facility] LABCLIA [id number] [place] [id number] [place] Calcium [Mass/Vol] 9.0 mg/dL Normal 8.5-10.2 [facility] Comment on above: Order Comment: Speci men Type: BLOOD SPECIMENOrdering Facility: [facility] Address: [address] [place] [address] Performed By: #### 2 4362-6 ####[facility] LABCLIA [id number] [place] [address] [place] Chloride [Moles/Vol] 105 mmol/L Normal 98-107 [facility] Comment on above: Order Comment: Speci men Type: BLOOD SPECIMENOrdering Facility: [facility] Address: [address] [place] [address] Performed By: #### 2 4362-6 ####[facility] LABCLIA [id number] [place] [address] [place] CO2 [Moles/Vol] 21 mmol/L Low 22-30 [facility] Comment on above: Order Comment: Speci men Type: BLOOD SPECIMENOrdering Facility: [facility] Address: [address] [place], [place] [address] Performed By: #### 2 4362-6 ####[facility] LABCLIA [id number] [place] [id number] [place] Creatinine [Mass/Vol] 0.85 mg/dL Normal 0.73-1.22 [facility] Comment on above: Order Comment: Speci men Type: BLOOD SPECIMENOrdering Facility: [facility] Address: [address] [place], [place] [address] Performed By: #### 2 4362-6 ####[facility] LABCLIA [id number] [place] [id number] [place] Creatinine and Glomerular filtration rate.predicted panel (S/P/Bld) 96 mL/min/1.73m??? Normal >=60 [facility] Comment on above: Order Comment: Barney laguna Type: BLOOD SPECIMENOrdering Facility: [facility] Address: [address] [place] [address] Result Comment: Bhargavi mated Glomerular Filtration Rate (eGFR) is calculated using the 2020 CKD-EPI creatinine equation. This equation utilizes serum creatinine, sex, and age as parameters. The creatinine assay has traceable calibration to isotope dilution-mass spectrometry. Refer to KDIGO guidelines for clinical interpretation. In patients with unstable renal function, e.g. those with acute kidney injury, the eGFR may not accurately reflect actual GFR. Performed By: #### 2 4362-6 ####[facility] LABCLIA [id number] [place] [address] [place] Glucose [Mass/Vol] 72 mg/dL Low 74-99 [facility] Comment on above: Order Comment: Barney laguna Type: BLOOD SPECIMENOrdering Facility: [facility] Address: [address] [place] [address] Result Comment: The [place] Diabetes Association (ADA) provides guidance for cutoff values for fasting glucose and random glucose. The ADA defines fasting as no caloric intake for at least 8 hours. Fasting plasma glucose results between 100 to 125 mg/dL indicate increased risk for diabetes (prediabetes). Fasting plasma glucose results greater than or equal to 126 mg/dL meet the criteria for diagnosis of diabetes. In the absence of unequivocal hyperglycemia, results should be confirmed by repeat testing. In a patient with classic symptoms of hyperglycemia or hyperglycemic crisis, random plasma glucose results greater than or equal to 200 mg/dL meet the criteria for diagnosis of diabetes. Reference: Standards of Medical Care in Diabetes 2016, [place] [employer] Association. Diabetes Care. 2016.39(Suppl 1). Performed By: #### 2 4362-6 ####[facility] LABCLIA [id number] [place] [address] [place] Phosphate [Mass/Vol] 3.5 mg/dL Normal 2.7-4.8 [facility] Comment on above: Order Comment: Speci men Type: BLOOD SPECIMENOrdering Facility: [facility] Address: [address] [place] [address] Performed By: #### 2 4362-6 ####[facility] LABCLIA [id number] [place] [address] [place] Potassium [Moles/Vol] 4.2 mmol/L Normal 3.7-5.1 [facility] Comment on above: Order Comment: Speci men Type: BLOOD SPECIMENOrdering Facility: [facility] Address: [address] [place] [address] Performed By: #### 2 4362-6 ####[facility] LABCLIA [id number] [place] [address] [place] Sodium [Moles/Vol] 140 mmol/L Normal 136-144 [facility] Comment on above: Order Comment: Speci men Type: BLOOD SPECIMENOrdering Facility: [facility] Address: [address] [place] [address] Performed By: #### 2 4362-6 ####[facility] LABCLIA [id number] [place] [address] [place] Urea nitrogen [Mass/Vol] 13 mg/dL Normal 9-24 [facility] Comment on above: Order Comment: Speci men Type: BLOOD SPECIMENOrdering Facility: [facility] Address: [address] [place] [address] Performed By: #### 2 4362-6 ####[facility] LABCLIA [id number] [place] [address] [place] THERAPY NTon 02-11-2024 THERAPY NT HNO ID: [id number] Author: GWENDOLYN HENRIQUEZ OTR/L Service: Occupational Therapy Author Type: Occupational Therapist Type: Therapy (PT/OT/Speech/Resp) Filed: 02/11/2024 11:59 Note Text: Occupational Therapy Evaluation Summary SERVICE DATE: 02/11/2024 SERVICE TIME: 1116 to 1139 ROOM: [place] [address] OT 6 Clicks Score: 22 DISCHARGE RECOMMENDATIONS Home Anticipated Discharge Needs: Physical Assist at Home Physical Assist at Home for: Cleaning, Laundry, Meals, Self Care, Shopping, Transportation Recommended Discharge Equipment: No equipment needs anticipated ASSESSMENT Response to Therapy Interventions: Good Participation in Activities Pt able to complete basic self care and functional mobility safely. Able to shower and toilet self this date. To benefit from additional OT for cognitive interventions and LB self care strategies. PRECAUTIONS None CURRENT HOSPITAL COURSE Patient is a 64 y/o male who presents with bilateral lower extremity swellin and altered mental status Relevant Past Medical History: PMH of CLL on ibrutinib, AFib (no longer on Xarelto per pt), hidradentitis suppurativa, dissecting cellulitis, HFrEF, anemia, HLD, HTN, and depression HOME LIVING Patient Lives With: Facility Care Assistance Available: PRN Entry To Home: No Stairs Number Of Stairs To Bed/Bath: 0 Stairs to Bed/Bath with: Unilateral Rail Tub/Shower Type: Walk in shower with built in shower seat and grab bars Laundry: Facility completes Equipment Owned: Wheelchair- Manual PRIOR FUNCTIONAL LEVEL Within Functional Limits Patient currently lives in SNF. Due to patient's tangential conversation patient's PLOF difficult to accurately obtain. Patient reports he was independent with self care and mobility at SNF. Reports he was getting therapy, but they discharged me because I was doing good. Main concern is now the toxins are limiting me. Patient denies any recent falls. Baseline Cognition: Oriented to self, Oriented to place, Oriented to time, Oriented to situation SUBJECTIVE I really just want to focus on getting these toxins out of my body COGNITION Orientation Deficits: (AANDOx4) Responsiveness: Alert, Awake Follows Commands: (WFL) Psychosocial Factors Impacting Care: Anxiety/Stress Cog 6 Start of Session Total Points (Max Score = 24): 23 (02/11/24) Cog 6 End of Session Total Points (Max Score = 24): 24 (02/11/24) 4AT Score: 0 (02/11/24) Delirium Positive/Negative: Negative (02/11/24) Cognitive Activities Performed: Pt calm, oriented x 4. Able to complete multistep tasks without difficulty. Main barrier to WNL cognition is perseveration on toxins THERAPY DIAGNOSIS Decreased activities of daily living (ADL) TREATMENT INTERVENTIONS Evaluation, Self Long Term Management (18255) Timed Code Treatment (minutes): 8 Skilled Treatment Time (minutes): 23 TRAINING AND EDUCATION PROVIDED Activity Adaptation/Compensatory Strategies, Altering Thinking Patterns, Assistive Device Use, Adaptive Equipment/DME THERAPEUTIC SKILLS USED Activity Dosing, Cues for Sequencing/Proper Technique for Activity, Cuing Tactile, Cuing Verbal, Cuing Visual, Movement Facilitation, Muscle Activation Facilitation, Repetitive Task Learning, Teach-Back for Education, Therapeutic Use of Self FUNCTIONAL STATUS Activities of Daily Living Assist Level Additional Information Feeding Independent Grooming Independent Bathing Upper Body Independent Bathing Lower Body Independent Dressing Upper Body Independent Dressing Lower Body Maximal Assistance Toileting Independent Mobility Assist Level Additional Information Bed Mobility Supine To Sit: Independent Sit To Supine: Independent Sit to Stand Independent Stand to Sit Independent Bed to Chair Toilet/Commode Shower Independent Functional Mobility Independent Functional Mobility Device: None GOALS Patient will demonstrate progress with self-care, cognitive and/or coping needs identified to allow safe discharge to home with available support and/or physical assistance. Progress Toward Goals: Progressing as expected Rehab Potential: Good PLAN OT Frequency: 2 Times Per Week Treatment Interventions: Education, Self Care/Home Management Plan for Next Visit: Dressing Training, Cognition Intervention SIGNATURE: GERMÁN Paulson/Janine PATIENT NAME: Marycruz Vargas DATE: February 11, 2024 TIME: 11:59 AM Normal [facility] THERAPY NT HNO ID: [id number] Author: DIMPLE SMYTH PT Service: Physical Therapy Author Type: Physical Therapist Type: Therapy (PT/OT/Speech/Resp) Filed: 02/11/2024 09:14 Note Text: Physical Therapy Evaluation Summary SERVICE DATE: 02/11/2024 SERVICE TIME: 823 to 848 ROOM: [place] [address] PT 6 Clicks Score: 24 DISCHARGE RECOMMENDATIONS Home ASSESSMENT Response to Therapy Interventions: Good Participation in Activities Patient demonstrates independence with all functional mobility this date and does not demonstrate any safety awareness concerns. Patient and PT discussed discharge plan and home safety at length. This PT answered all questions to best of ability. Based on current functional status the patient will be discharged from Acute PT caseload as there are no Acute PT needs. PRECAUTIONS CURRENT HOSPITAL COURSE Patient is a 64 y/o male who presents with bilateral lower extremity swelling. Relevant Past Medical History: PMH of CLL on ibrutinib, AFib (no longer on Xarelto per pt), hidradentitis suppurativa, dissecting cellulitis, HFrEF, anemia, HLD, HTN, and depression HOME LIVING Patient Lives With: Facility Care Assistance Available: PRN Entry To Home: No Stairs Equipment Owned: Wheelchair- Manual PRIOR FUNCTIONAL LEVEL Within Functional Limits Patient currently lives in SNF. Due to patient's tangential conversation patient's PLOF difficult to accurately obtain. Patient states manual wheelchair is primary method of ambulation and states I can't walk but then reports ambulating within room independent at SNF but now the toxins are limiting me. Patient denies any recent falls. SUBJECTIVE Patient agreeable to PT. Patient perseverating on toxins in my body throughout PT evaluation. THERAPY DIAGNOSIS TREATMENT INTERVENTIONS Evaluation, Therapeutic Activity (64836) Timed Code Treatment (minutes): 10 Skilled Treatment Time (minutes): 25 TRAINING AND EDUCATION PROVIDED Discharge Planning, Energy Conservation, Home Safety THERAPEUTIC SKILLS USED Cuing Tactile, Cuing Verbal, Movement Facilitation, Physical Assist FUNCTIONAL STATUS Bed Mobility Supine To Sit: Independent Sit to Supine: Independent Transfers Sit To Stand: Independent Stand To Sit: Independent Bed to Chair Gait Independent Gait Device: None Gait Distance (feet): 35ft Stairs GOALS PLAN PT Frequency: Discontinue Therapy Services Reasons Therapy Services Discontinued: Independent in all functional mobility SIGNATURE: Dimple Smyth PT PATIENT NAME: Marycruz Vargas DATE: February 11, 2024 TIME: 9:14 AM Normal [facility] CT ABD/PEL W IVCONon 024 CT ABD/PEL W IVCON * * *Final Report* * * DATE OF EXAM: Feb 10 2024 2:39AM [facility] 0530 - CT ABD/PEL W IVCON / PROCEDURE REASON: R gluteal wound * * * * Physician Interpretation * * * * EXAMINATION: CT ABDOMEN AND PELVIS WITH IV CONTRAST CLINICAL HISTORY: History of CLL, hydradenitis, A. fib. Presenting with purulent drainage from wound. TECHNIQUE: CT of the abdomen and pelvis was performed using standard technique, scanning from just above the dome of the diaphragm to the symphysis pubis. MQ: CTAP_3 Contrast: IV: 100 ml of Omnipaque 350 CT Radiation dose: Integrated Dose-length product (DLP) for this visit = 2143 mGy*cm. CT Dose Reduction Employed: mAs-kVp adjusted based on patient size-age COMPARISON: CT abdomen pelvis 06/07/2023, CT chest 01/23/2022. RESULT: Liver: No mass. Biliary: No bile duct dilation. Gallbladder is unremarkable. Spleen: No mass. Unchanged mild splenomegaly. Pancreas: No mass or duct dilation. Adrenals: No mass. Kidneys: -RIGHT: 2.0 cm above fluid attenuating RIGHT lower pole cystic lesion with peripheral calcifications, unchanged from 2021. Stable subcentimeter lesion in the midpole too small to characterize but likely benign. No calculus or hydronephrosis. -LEFT: Punctate nonobstructing mid pole calculus (3:62). No suspicious mass or hydronephrosis. GI tract: -Diverticulosis without diverticulitis -No dilation or wall thickening. Lymph nodes: Stable abdominopelvic lymphadenopathy, for example a 1.0 cm node along the lesser curvature of the stomach (3:41), a 2.2 cm RIGHT external iliac node (3:131), and a 1.9 cm LEFT external iliac node (3:139). Mesentery/Peritoneum: No ascites or mass. Retroperitoneum: No mass. Vasculature: - Abdominal aorta and iliac arteries: Atherosclerotic calcifications without aneurysm. - Celiac and SMA: Atherosclerotic calcifications at the origins. - Portal venous system (SMV, splenic vein, portal vein and branches): Patent. - Hepatic veins: Patent. Pelvis: No mass, ascites or fluid collection. Bones/Soft Tissues: -Stable soft tissue thickening involving the bilateral gluteal regions extending into the intergluteal cleft as well as proximal posterior LEFT thigh. A chronic RIGHT gluteal wound contains packing material. There is interval decrease in punctate foci of gas within this area of soft tissue thickening. No organized fluid collection. -Degenerative changes. Lower thorax: -0.7 cm LEFT lower lobe nodule (3:23), stable since 01/23/2022. -Bibasilar atelectasis. Localizer images: No additional findings. IMPRESSION: Stable is soft tissue thickening involving the bilateral gluteal regions. Chronic wound in the medial RIGHT gluteal region without measurable fluid collection. Stable abdominopelvic lymphadenopathy and mild splenomegaly. Sock Drier: CHEN Transcribe Date/Time: Feb 10 2024 2:42A Dictated by : GUERO HOLLINGSWORTH DO This examination was interpreted and the report reviewed and electronically signed by: ANALISA WONG MD on Feb 10 2024 3:17AM EST [id number] Normal [facility] CT BRAIN WO IVCONon 02-10-[address] BRAIN WO IVCON * * *Final Report* * * DATE OF EXAM: Feb 10 2024 9:35AM [facility] 0[facility] - CT BRAIN WO IVCON / PROCEDURE REASON: Mental status change, unknown cause * * * * Physician Interpretation * * * * EXAMINATION: CT BRAIN WO IVCON CLINICAL HISTORY: Mental status change TECHNIQUE: Serial axial images without IV contrast were obtained from the vertex to the foramen magnum. MQ: CTBWO_3 CT Radiation dose: Integrated Dose-Length Product (DLP) for this visit = 1192 mGy*cm CT Dose Reduction Employed: No dose reduction techniques were required COMPARISON: Head CT 11/16/2021 RESULT: Localizer images: Unremarkable. Post-operative change: None. Acute change: No evidence of an acute infarct or other acute parenchymal process. Hemorrhage: No evidence of acute intracranial hemorrhage. ECASS hemorrhagic transformation score: Not Applicable Mass Lesion / Mass Effect: There is no evidence of an intracranial mass or extraaxial fluid collection. No mass effect. Chronic change: Patchy areas of hypoattenuation throughout the bilateral cerebral hemispheric white matter are compatible with sequelae of chronic small vessel disease. Diffuse brain volume loss with ex-vacuo ventricular enlargement. Intracranial arterial calcifications are present. Ventricles: No hydrocephalus. Paranasal sinuses and skull base: The visualized paranasal sinuses are grossly clear. The skull base and imaged soft tissues are unremarkable. IMPRESSION: No evidence of acute intracranial abnormality. CT is relatively insensitive for detection of acute infarction within the first 24 to 48 hours, and MRI may be indicated. Sock Drier: PSCB Transcribe Date/Time: Feb 10 2024 9:36A Dictated by : MALI ARNOLD MD This examination was interpreted and the report reviewed and electronically signed by: MALI ARNOLD MD on Feb 10 2024 9:39AM EST [id number] Normal [facility] Comprehensive metabolic 2000 panelon 02-10-2024 Albumin [Mass/Vol] 3.5 g/dL Low 3.9-4.9 [facility] Comment on above: Order Comment: Speci men Type: BLOOD SPECIMENOrdering Facility: [facility] Address: [address] [place] [id number] Performed By: #### 2 4323-8 ####[facility] LABCLIA [id number] [place] [id number] [place] ALP [Catalytic activity/Vol] 96 U/L Normal 38-113 [facility] Comment on above: Order Comment: Speci men Type: BLOOD SPECIMENOrdering Facility: [facility] Address: [address] [place], [place] [address] Performed By: #### 2 4323-8 ####[facility] LABCLIA [id number] [place] [address] [place] ALT [Catalytic activity/Vol] 12 U/L Normal 10-54 [facility] Comment on above: Order Comment: Speci men Type: BLOOD SPECIMENOrdering Facility: [facility] Address: [address] [place] [address] Performed By: #### 2 4323-8 ####[facility] LABCLIA [id number] [place] [address] [place] Anion gap [Moles/Vol] 12 mmol/L Normal 8-15 [facility] Comment on above: Order Comment: Speci men Type: BLOOD SPECIMENOrdering Facility: [facility] Address: [address] [place], [place] [address] Performed By: #### 2 4323-8 ####[facility] LABCLIA [id number] [facility] [place] [id number] [place] AST [Catalytic activity/Vol] 16 U/L Normal 14-40 [facility] Comment on above: Order Comment: Speci men Type: BLOOD SPECIMENOrdering Facility: [facility] Address: [address] [place], [place] [address] Performed By: #### 2 4323-8 ####[facility] LABCLIA [id number] [place] [address] [place] Bilirubin [Mass/Vol] 0.4 mg/dL Normal 0.2-1.3 [facility] Comment on above: Order Comment: Speci men Type: BLOOD SPECIMENOrdering Facility: [facility] Address: [address] [place] [address] Performed By: #### 2 4323-8 ####[facility] LABCLIA [id number] [place] [address] [place] Calcium [Mass/Vol] 8.9 mg/dL Normal 8.5-10.2 [facility] Comment on above: Order Comment: Speci men Type: BLOOD SPECIMENOrdering Facility: [facility] Address: [address] [place] [address] Performed By: #### 2 4323-8 ####[facility] LABCLIA [id number] [place] [address] [place] Chloride [Moles/Vol] 104 mmol/L Normal 98-107 [facility] Comment on above: Order Comment: Speci men Type: BLOOD SPECIMENOrdering Facility: [facility] Address: [address] [place] [address] Performed By: #### 2 4323-8 ####[facility] LABCLIA [id number] [place] [address] [place] CO2 [Moles/Vol] 23 mmol/L Normal 22-30 [facility] Comment on above: Order Comment: Speci men Type: BLOOD SPECIMENOrdering Facility: [facility] Address: [address] [place], [place] [address] Performed By: #### 2 4323-8 ####[facility] LABCLIA [id number] [place] [address] [place] Creatinine [Mass/Vol] 0.92 mg/dL Normal 0.73-1.22 [facility] Comment on above: Order Comment: Speci men Type: BLOOD SPECIMENOrdering Facility: [facility] Address: [address] [place] [address] Performed By: #### 2 4323-8 ####[facility] LABIA [id number] [place] [address] [place] Creatinine and Glomerular filtration rate.predicted panel (S/P/Bld) 92 mL/min/1.73m??? Normal >=60 [facility] Comment on above: Order Comment: Barney laguna Type: BLOOD SPECIMENOrdering Facility: [facility] Address: [address] [place] [address] Result Comment: Bhargavi mated Glomerular Filtration Rate (eGFR) is calculated using the 2020 CKD-EPI creatinine equation. This equation utilizes serum creatinine, sex, and age as parameters. The creatinine assay has traceable calibration to isotope dilution-mass spectrometry. Refer to KDIGO guidelines for clinical interpretation. In patients with unstable renal function, e.g. those with acute kidney injury, the eGFR may not accurately reflect actual GFR. Performed By: #### 2 4323-8 ####[facility] LABIA [id number] [place] [address] [place] Glucose [Mass/Vol] 84 mg/dL Normal 74-99 [facility] Comment on above: Order Comment: Barney laguna Type: BLOOD SPECIMENOrdering Facility: [facility] Address: [address] [place] [address] Result Comment: The [place] Diabetes Association (ADA) provides guidance for cutoff values for fasting glucose and random glucose. The ADA defines fasting as no caloric intake for at least 8 hours. Fasting plasma glucose results between 100 to 125 mg/dL indicate increased risk for diabetes (prediabetes). Fasting plasma glucose results greater than or equal to 126 mg/dL meet the criteria for diagnosis of diabetes. In the absence of unequivocal hyperglycemia, results should be confirmed by repeat testing. In a patient with classic symptoms of hyperglycemia or hyperglycemic crisis, random plasma glucose results greater than or equal to 200 mg/dL meet the criteria for diagnosis of diabetes. Reference: Standards of Medical Care in Diabetes 2016, [place] [employer]. Diabetes Care. 2016.39(Suppl 1). Performed By: #### 2 4323-8 ####[facility] LABCLIA [id number] [place] [address] [place] Potassium [Moles/Vol] 3.6 mmol/L Low 3.7-5.1 [facility] Comment on above: Order Comment: Speci men Type: BLOOD SPECIMENOrdering Facility: [facility] Address: [address] [place] [address] Performed By: #### 2 4323-8 ####[facility] LABCLIA [id number] [place] [address] [place] Protein [Mass/Vol] 6.7 g/dL Normal 6.3-8.0 [facility] Comment on above: Order Comment: Speci men Type: BLOOD SPECIMENOrdering Facility: [facility] Address: [address] [place] [address] Performed By: #### 2 4323-8 ####[facility] LABIA [id number] [place] [address] [place] Sodium [Moles/Vol] 139 mmol/L Normal 136-144 [facility] Comment on above: Order Comment: Speci men Type: BLOOD SPECIMENOrdering Facility: [facility] Address: [address] [place] [address] Performed By: #### 2 4323-8 ####[facility] LABIA [id number] [place] [address] [place] Urea nitrogen [Mass/Vol] 16 mg/dL Normal 9-24 [facility] Comment on above: Order Comment: Speci men Type: BLOOD SPECIMENOrdering Facility: [facility] Address: [address] [place] [address] Performed By: #### 2 4323-8 ####[facility] LABCLIA [id number] [place] [id number] [place] ED NOTEon 02-10-2024 ED NOTE HNO ID: [id number] Author: GOLDIE MARADIAGA, RN Service: Emergency Medicine Author Type: Registered Nurse Type: ED Notes Filed: 02/10/2024 06:18 Note Text: Normal [facility] SEPSIS LACTATEon 02-10-2024 Lactate [Moles/Vol] 1.6 mmol/L Normal <=2.0 [facility] Comment on above: Order Comment: Speci men Type: BLOOD SPECIMENOrdering Facility: [facility] Address: [address] [place] [address] Performed By: #### S LACT ####[facility] LABCLIA [id number] [place] [address] [place] TOXICOLOGY SCREEN, ROUTINE U RINEon 02-10-2024 Amphetamines Confirm (U) [Mass/Vol] Negative Normal Negative [facility] Comment on above: Order Comment: Speci men Type: URINE SPECIMENOrdering Facility: [facility] Address: [address] [place] [address] Result Comment: Cuto ff threshold at 1000 ng/mL. Performed By: #### U TOX2 ####[facility] LABCLIA [id number] [place] [address] [place] BARBITURATES, URINE Negative Normal Negative [facility] Comment on above: Order Comment: Speci men Type: URINE SPECIMENOrdering Facility: [facility] Address: [address] [place] [address] Result Comment: Cuto ff threshold at 200 ng/mL. Performed By: #### U TOX2 ####[facility] LABCLIA [id number] [place] [address] [place] BENZODIAZEPINES, UR Negative Normal Negative [facility] Comment on above: Order Comment: Speci men Type: URINE SPECIMENOrdering Facility: [facility] Address: [address] [place] [address] Result Comment: Cuto ff threshold at 200 ng/mL. Performed By: #### U TOX2 ####[facility] LABCLIA [id number] [place] [address] [place] Cannabinoids Screen Ql (U) Negative Normal Negative [facility] Comment on above: Order Comment: Speci men Type: URINE SPECIMENOrdering Facility: [facility] Address: [address] [place] [address] Result Comment: Cuto ff threshold at 50 ng/mL. Performed By: #### U TOX2 ####[facility] LABCLIA [id number] [place] [address] [place] Cocaine Ql (U) Negative Normal Negative [facility] Comment on above: Order Comment: Speci men Type: URINE SPECIMENOrdering Facility: [facility] Address: [address] [place] [address] Result Comment: Cuto ff threshold at 300 ng/mL. Performed By: #### U TOX2 ####[facility] LABCLIA [id number] [place] [address] [place] Ethanol (U) [Mass/Vol] <11 Normal <11 [facility] Comment on above: Order Comment: Speci men Type: URINE SPECIMENOrdering Facility: [facility] Address: [address] [place] [address] Performed By: #### U TOX2 ####[facility] LABCLIA [id number] [place] [address] [place] Opiates Screen Ql (U) Negative Normal Negative [facility] Comment on above: Order Comment: Speci men Type: URINE SPECIMENOrdering Facility: [facility] Address: [address] [place] [address] Result Comment: Cuto ff threshold at 300 ng/mL. Performed By: #### U TOX2 ####[facility] LABCLIA [id number] [place] [address] [place] oxyCODONE cutoff Screen (U) [Mass/Vol] Negative Normal Negative [facility] Comment on above: Order Comment: Speci men Type: URINE SPECIMENOrdering Facility: [facility] Address: [address] [place] [address] Result Comment: Cuto ff threshold at 100 ng/mL. Performed By: #### U TOX2 ####[facility] LABCLIA [id number] [place] [address] [place] Phencyclidine Ql (U) Negative Normal Negative [facility] Comment on above: Order Comment: Speci men Type: URINE SPECIMENOrdering Facility: [facility] Address: [address] [place] [address] Result Comment: Cuto ff threshold at 25 ng/mL. Performed By: #### U TOX2 ####[facility] LABIA [id number] [place] [address] [place] Urinalysis complete panel (U )on 02-10-2024 Bacteria LM.HPF (Urine sed) [#/Area] Negative Normal Negative [facility] Comment on above: Order Comment: Speci men Type: URINE SPECIMENOrdering Facility: [facility] Address: [address] [place] [address] Performed By: #### 2 4356-8 ####[facility] LABIA [id number] [place] [address] [place] Bilirubin Ql (U) Negative Normal Negative [facility] Comment on above: Order Comment: Speci men Type: URINE SPECIMENOrdering Facility: [facility] Address: [address] [place] [address] Performed By: #### 2 4356-8 ####[facility] LABIA [id number] [place] [address] [place] Clarity (Unsp spec) Clear Normal Clear [facility] Comment on above: Order Comment: Speci men Type: URINE SPECIMENOrdering Facility: [facility] Address: [address] [place] [address] Performed By: #### 2 4356-8 ####[facility] LABCLIA [id number] [place] [address] [place] Color (U) Yellow Normal Yellow [facility] Comment on above: Order Comment: Speci men Type: URINE SPECIMENOrdering Facility: [facility] Address: [address] [place] [address] Performed By: #### 2 4356-8 ####[facility] LABCLIA [id number] [place] [address] [place] Epithelial cells LM.HPF (Urine sed) [#/Area] None Seen Normal [facility] Comment on above: Order Comment: Speci men Type: URINE SPECIMENOrdering Facility: [facility] Address: [address] [place] [address] Performed By: #### 2 4356-8 ####[facility] LABIA [id number] [place] [address] [place] Glucose Test strip (U) [Mass/Vol] Negative Normal Negative [facility] Comment on above: Order Comment: Speci men Type: URINE SPECIMENOrdering Facility: [facility] Address: [address] [place] [address] Performed By: #### 2 4356-8 ####[facility] LABIA [id number] [place] [address] [place] Hemoglobin Ql (U) Negative Normal Negative [facility] Comment on above: Order Comment: Speci men Type: URINE SPECIMENOrdering Facility: [facility] Address: [address] [place] [address] Performed By: #### 2 4356-8 ####[facility] LABIA [id number] [place] [address] [place] Hyaline casts (Urine sed) [#/Area] 0 /[LPF] Normal 0 /LPF [facility] Comment on above: Order Comment: Speci men Type: URINE SPECIMENOrdering Facility: [facility] Address: [address] [place], [place] [address] Performed By: #### 2 4356-8 ####[facility] LABCLIA [id number] [place] [address] [place] Ketones Ql (U) Negative Normal Negative [facility] Comment on above: Order Comment: Speci men Type: URINE SPECIMENOrdering Facility: [facility] Address: [address] [place] [address] Performed By: #### 2 4356-8 ####[facility] LABCLIA [id number] [place] [address] [place] Leukocyte esterase Test strip Ql (U) Trace Abnormal Negative [facility] Comment on above: Order Comment: Speci men Type: URINE SPECIMENOrdering Facility: [facility] Address: [address] [place] [address] Performed By: #### 2 4356-8 ####[facility] LABCLIA [id number] [place] [address] [place] Nitrite Ql (U) Negative Normal Negative [facility] Comment on above: Order Comment: Speci men Type: URINE SPECIMENOrdering Facility: [facility] Address: [address] [place] [address] Performed By: #### 2 4356-8 ####[facility] LABCLIA [id number] [place] [address] [place] pH (U) 6.0 [pH] Normal <8.5 [facility] Comment on above: Order Comment: Speci men Type: URINE SPECIMENOrdering Facility: [facility] Address: [address] [place] [address] Performed By: #### 2 4356-8 ####[facility] LABCLIA [id number] [place] [address] [place] Protein (U) [Mass/Vol] Negative Normal Negative [facility] Comment on above: Order Comment: Speci men Type: URINE SPECIMENOrdering Facility: [facility] Address: [address] [place] [address] Performed By: #### 2 4356-8 ####[facility] LABIA [id number] [place] [address] [place] RBC LM.HPF (Urine sed) [#/Area] 0-2 /HPF Normal 0-2 /HPF [facility] Comment on above: Order Comment: Speci men Type: URINE SPECIMENOrdering Facility: [facility] Address: [address] [place] [address] Performed By: #### 2 4356-8 ####[facility] LABIA [id number] [place] [address] [place] Specific gravity (U) [Rel density] 1.040 High 1.005-1.030 [facility] Comment on above: Order Comment: Speci men Type: URINE SPECIMENOrdering Facility: [facility] Address: [address] [place] [address] Performed By: #### 2 4356-8 ####[facility] LABIA [id number] [place] [address] [place] Urobilinogen Ql (U) 0.2 EU/dL Normal 0.2-1.0 EU/dL [facility] Comment on above: Order Comment: Speci men Type: URINE SPECIMENOrdering Facility: [facility] Address: [address] [place] [address] Performed By: #### 2 4356-8 ####[facility] LABIA [id number] [place] [address] [place] WBC LM.HPF (Urine sed) [#/Area] 0-5 /HPF Normal 0-5 /HPF [facility] Comment on above: Order Comment: Speci men Type: URINE SPECIMENOrdering Facility: [facility] Address: [address] [place] [address] Performed By: #### 2 4356-8 ####[facility] LABCLIA [id number] [address] [address] [place] XR CHEST 1V FRONTAL PORTon 0 02-10-2024 XR CHEST 1V FRONTAL PORT * * *Final Report* * * DATE OF EXAM: Feb 10 2024 7:28AM [facility] [id number] - XR CHEST 1V FRONTAL PORT / PROCEDURE REASON: Mental status change * * * * Physician Interpretation * * * * EXAMINATION: CHEST RADIOGRAPH (PORTABLE SINGLE VIEW AP) Exam Date/Time: 02/10/2024 7:28 AM Clinical History: Mental status change MQ: [id number] Comparison: 06/07/2023 RESULT: Lines, tubes, and devices: None. Lungs and pleura: Curvilinear parenchymal bandlike atelectasis in the right midlung. No focal consolidations. No large pleural effusions. No definite pneumothorax. Cardiomediastinal silhouette: Stable cardiomediastinal silhouette. Other: . IMPRESSION: See result. Sock Drier: PSCB Transcribe Date/Time: Feb 10 2024 8:40A Dictated by : JESUS MANUEL EDGE MD This examination was interpreted and the report reviewed and electronically signed by: JESUS MANUEL EDGE MD on Feb 10 2024 8:41AM EST [id number] Normal [facility] Basic metabolic 2000 panelon 02-09-2024 Anion gap [Moles/Vol] 11 mmol/L Normal 8-15 [facility] Comment on above: Order Comment: Speci men Type: BLOOD SPECIMENOrdering Facility: [facility] Address: [address] [place] [address] Performed By: #### 1 988-5, 47074-3, 21542-9, 14961-9 ####[facility] LABCLIA [id number] [place] [id number] [place] Calcium [Mass/Vol] 9.0 mg/dL Normal 8.5-10.2 [facility] Comment on above: Order Comment: Speci men Type: BLOOD SPECIMENOrdering Facility: [facility] Address: [address] [place] [address] Performed By: #### 1 988-5, 21295-8, 67899-6, 09493-5 ####[facility] LABCLIA [id number] [place] [id number] [place] Chloride [Moles/Vol] 102 mmol/L Normal 98-107 [facility] Comment on above: Order Comment: Speci men Type: BLOOD SPECIMENOrdering Facility: [facility] Address: [address] [place] [address] Performed By: #### 1 988-5, 90833-3, 33327-6, 82490-2 ####[facility] LABIA [id number] [place] [address] [place] CO2 [Moles/Vol] 25 mmol/L Normal 22-30 [facility] Comment on above: Order Comment: Speci men Type: BLOOD SPECIMENOrdering Facility: [facility] Address: [address] [place] [address] Performed By: #### 1 988-5, 01397-8, 12359-1, 21356-9 ####[facility] LABIA [id number] [place] [address] [place] Creatinine [Mass/Vol] 0.97 mg/dL Normal 0.73-1.22 [facility] Comment on above: Order Comment: Speci men Type: BLOOD SPECIMENOrdering Facility: [facility] Address: [address] [place] [address] Performed By: #### 1 988-5, 36876-0, 78056-1, 55277-5 ####[facility] LABIA [id number] [place] [address] [place] Creatinine and Glomerular filtration rate.predicted panel (S/P/Bld) 86 mL/min/1.73m??? Normal >=60 [facility] Comment on above: Order Comment: Speci men Type: BLOOD SPECIMENOrdering Facility: [facility] Address: [address] [place] [id number] Result Comment: Bhargavi mated Glomerular Filtration Rate (eGFR) is calculated using the 2020 CKD-EPI creatinine equation. This equation utilizes serum creatinine, sex, and age as parameters. The creatinine assay has traceable calibration to isotope dilution-mass spectrometry. Refer to KDIGO guidelines for clinical interpretation. In patients with unstable renal function, e.g. those with acute kidney injury, the eGFR may not accurately reflect actual GFR. Performed By: #### 1 988-5, 15207-4, 06273-8, 12318-3 ####[facility] LABCLIA [id number] [place] [address] [place] Glucose [Mass/Vol] 91 mg/dL Normal 74-99 [facility] Comment on above: Order Comment: Barney laguna Type: BLOOD SPECIMENOrdering Facility: [facility] Address: [address] [place] [address] Result Comment: The [place] [employer] Association (ADA) provides guidance for cutoff values for fasting glucose and random glucose. The ADA defines fasting as no caloric intake for at least 8 hours. Fasting plasma glucose results between 100 to 125 mg/dL indicate increased risk for diabetes (prediabetes). Fasting plasma glucose results greater than or equal to 126 mg/dL meet the criteria for diagnosis of diabetes. In the absence of unequivocal hyperglycemia, results should be confirmed by repeat testing. In a patient with classic symptoms of hyperglycemia or hyperglycemic crisis, random plasma glucose results greater than or equal to 200 mg/dL meet the criteria for diagnosis of diabetes. Reference: Standards of Medical Care in Diabetes 2016, [place] [employer]. Diabetes Care. 2016.39(Suppl 1). Performed By: #### 1 988-5, 24310-4, 12295-6, 58447-0 ####[facility] LABIA [id number] [place] [id number] [place] Potassium [Moles/Vol] 3.6 mmol/L Low 3.7-5.1 [facility] Comment on above: Order Comment: Barney laguna Type: BLOOD SPECIMENOrdering Facility: [facility] Address: [address] [place] [id number] Performed By: #### 1 988-5, 64554-1, 64571-2, 80394-6 ####[facility] LABCLIA [id number] [place] [address] [place] Sodium [Moles/Vol] 138 mmol/L Normal 136-144 [facility] Comment on above: Order Comment: Speci men Type: BLOOD SPECIMENOrdering Facility: [facility] Address: [address] [place] [address] Performed By: #### 1 988-5, 92241-0, 86642-3, 54188-1 ####[facility] LABIA [id number] [place] [address] [place] Urea nitrogen [Mass/Vol] 19 mg/dL Normal 9-24 [facility] Comment on above: Order Comment: Speci men Type: BLOOD SPECIMENOrdering Facility: [facility] Address: [address] [place] [address] Performed By: #### 1 988-5, 11229-5, 36351-8, 79455-3 ####[facility] LABIA [id number] [place] [address] [place] CBC W Auto Differential pane l (Bld)on 02-09-2024 Anisocytosis Ql (Bld) Present Normal [facility] Comment on above: Order Comment: Speci men Type: BLOOD SPECIMENOrdering Facility: [facility] Address: [address] [place] [address] Performed By: #### 5 7021-8, 4537-7 ####[facility] LABIA [id number] [place] [address] [place] Basophils (Bld) [#/Vol] 0.00 10*3/uL Normal <0.11 [facility] Comment on above: Order Comment: Speci men Type: BLOOD SPECIMENOrdering Facility: [facility] Address: [address] [place] [address] Performed By: #### 5 7021-8, 4536-7 ####[facility] LABCLIA [id number] [place] [address] [place] Basophils/100 WBC (Bld) 0.0 % Normal [facility] Comment on above: Order Comment: Speci men Type: BLOOD SPECIMENOrdering Facility: [facility] Address: [address] [place] [address] Performed By: #### 5 7021-8, 4536-7 ####[facility] LABCLIA [id number] [place] [address] [place] Differential cell count method Nom (Bld) Manual Normal [facility] Comment on above: Order Comment: Speci men Type: BLOOD SPECIMENOrdering Facility: [facility] Address: [address] [place] [address] Performed By: #### 5 7021-8, 7 ####[facility] LABCLIA [id number] [place] [address] [place] Eosinophils (Bld) [#/Vol] 0.20 10*3/uL Normal <0.46 [facility] Comment on above: Order Comment: Speci men Type: BLOOD SPECIMENOrdering Facility: [facility] Address: [address] [place] [address] Performed By: #### 5 7021-8, 7 ####[facility] LABCLIA [id number] [place] [address] [place] Eosinophils/100 WBC (Bld) 1.7 % Normal [facility] Comment on above: Order Comment: Speci men Type: BLOOD SPECIMENOrdering Facility: [facility] Address: [address] [place] [address] Performed By: #### 5 7021-8, 7-7 ####[facility] LABCLIA [id number] [place] [address] [place] Erythrocyte distribution width (RBC) [Ratio] 15.9 % High 11.5-15.0 [facility] Comment on above: Order Comment: Speci men Type: BLOOD SPECIMENOrdering Facility: [facility] Address: [address] [place] [address] Performed By: #### 5 7021-8, 4537-7 ####[facility] LABCLIA [id number] [place] [address] [place] Hematocrit (Bld) [Volume fraction] 39.2 % Normal 39.0-51.0 [facility] Comment on above: Order Comment: Speci men Type: BLOOD SPECIMENOrdering Facility: [facility] Address: [address] [place] [address] Performed By: #### 5 7021-8, 4537-7 ####[facility] LABCLIA [id number] [place] [address] [place] Hemoglobin (Bld) [Mass/Vol] 11.7 g/dL Low 13.0-17.0 [facility] Comment on above: Order Comment: Speci men Type: BLOOD SPECIMENOrdering Facility: [facility] Address: [address] [place] [address] Performed By: #### 5 7021-8, 4537-7 ####[facility] LABCLIA [id number] [place] [address] [place] Lymphocytes (Bld) [#/Vol] 5.32 10*3/uL High 1.00-4.00 [facility] Comment on above: Order Comment: Speci men Type: BLOOD SPECIMENOrdering Facility: [facility] Address: [address] [place] [address] Performed By: #### 5 7021-8, 4537-7 ####[facility] LABCLIA [id number] [place] [address] [place] Lymphocytes/100 WBC (Bld) 44.9 % Normal [facility] Comment on above: Order Comment: Speci men Type: BLOOD SPECIMENOrdering Facility: [facility] Address: [address] [place] [address] Performed By: #### 5 7021-8, 4536-7 ####[facility] LABCLIA [id number] [place] [address] [place] MCH (RBC) [Entitic mass] 23.4 pg Low 26.0-34.0 [facility] Comment on above: Order Comment: Speci men Type: BLOOD SPECIMENOrdering Facility: [facility] Address: [address] [place] [address] Performed By: #### 5 7021-8, 453-7 ####[facility] LABCLIA [id number] [place] [address] [place] MCHC (RBC) [Mass/Vol] 29.8 g/dL Low 30.5-36.0 [facility] Comment on above: Order Comment: Speci men Type: BLOOD SPECIMENOrdering Facility: [facility] Address: [address] [place] [address] Performed By: #### 5 7021-8, 4536-7 ####[facility] LABCLIA [id number] [place] [address] [place] MCV (RBC) [Entitic vol] 78.4 fL Low 80.0-100.0 [facility] Comment on above: Order Comment: Speci men Type: BLOOD SPECIMENOrdering Facility: [facility] Address: [address] [place] [address] Performed By: #### 5 7021-8, 4536-7 ####[facility] LABCLIA [id number] [place] [address] [place] Monocytes (Bld) [#/Vol] 0.30 10*3/uL Normal <0.87 [facility] Comment on above: Order Comment: Speci men Type: BLOOD SPECIMENOrdering Facility: [facility] Address: [address] [place] [address] Performed By: #### 5 7021-8, 4536-7 ####[facility] LABCLIA [id number] [place] [address] [place] Monocytes/100 WBC (Bld) 2.5 % Normal [facility] Comment on above: Order Comment: Speci men Type: BLOOD SPECIMENOrdering Facility: [facility] Address: [address] [place] [address] Performed By: #### 5 7021-8, 4536-7 ####[facility] LABCLIA [id number] [place] [address] [place] Neutrophils (Bld) [#/Vol] 6.03 10*3/uL Normal 1.45-7.50 [facility] Comment on above: Order Comment: Speci men Type: BLOOD SPECIMENOrdering Facility: [facility] Address: [address] [place] [address] Performed By: #### 5 7021-8, 7 ####[facility] LABCLIA [id number] [place] [address] [place] Neutrophils/100 WBC (Bld) 50.9 % Normal [facility] Comment on above: Order Comment: Speci men Type: BLOOD SPECIMENOrdering Facility: [facility] Address: [address] [place] [address] Performed By: #### 5 7021-8, 7 ####[facility] LABCLIA [id number] [place] [address] [place] Nucleated RBC (Bld) [#/Vol] 10*3/uL Normal <0.01 [facility] Comment on above: Order Comment: Speci men Type: BLOOD SPECIMENOrdering Facility: [facility] Address: [address] [place] [address] Performed By: #### 5 7021-8, 4536-7 ####[facility] LABCLIA [id number] [place] [address] [place] Nucleated RBC/100 WBC (Bld) [Ratio] 0.0 /100 WBC Normal [facility] Comment on above: Order Comment: Speci men Type: BLOOD SPECIMENOrdering Facility: [facility] Address: [address] [place] [address] Performed By: #### 5 7021-8, 4536-7 ####[facility] LABIA [id number] [place] [address] [place] Ovalocytes LM Ql (Bld) Few Normal Cl [facility] Comment on above: Order Comment: Speci men Type: BLOOD SPECIMENOrdering Facility: [facility] Address: [address] [place] [address] Performed By: #### 5 7021-8, 4536-7 ####[facility] [id number] [place] [address] [place] Platelet mean volume (Bld) [Entitic vol] 10.8 fL Normal 9.0-12.7 [facility] Comment on above: Order Comment: Speci men Type: BLOOD SPECIMENOrdering Facility: [facility] Address: [address] [place] [address] Performed By: #### 5 7021-8, 4536-7 ####[facility] LABIA [id number] [place] [address] [place] Platelets (Bld) [#/Vol] 223 10*3/uL Normal 150-400 [facility] Comment on above: Order Comment: Speci men Type: BLOOD SPECIMENOrdering Facility: [facility] Address: [address] [place] [address] Performed By: #### 5 7021-8, 4536-7 ####[facility] LABIA [id number] [place] [address] [place] Platelets Estimate (Bld) [#/Vol] Adequate Normal [facility] Comment on above: Order Comment: Speci men Type: BLOOD SPECIMENOrdering Facility: [facility] Address: [address] [place] [address] Performed By: #### 5 7021-8, 7-7 ####[facility] LABCLIA [id number] [place] [address] [place] Polychromasia LM Ql (Bld) Slight Normal [facility] Comment on above: Order Comment: Speci men Type: BLOOD SPECIMENOrdering Facility: [facility] Address: [address] [place] [address] Performed By: #### 5 7021-8, 4536-7 ####[facility] LABCLIA [id number] [place] [address] [place] RBC (Bld) [#/Vol] 5.00 10*6/uL Normal 4.20-6.00 [facility] Comment on above: Order Comment: Speci men Type: BLOOD SPECIMENOrdering Facility: [facility] Address: [address] [place] [address] Performed By: #### 5 7021-8, 4536-7 ####[facility] LABCLIA [id number] [place] [address] [place] RED CELL MORPH Reviewed: see result s of individual morphologies Normal [facility] Comment on above: Order Comment: Speci men Type: BLOOD SPECIMENOrdering Facility: [facility] Address: [address] [place] [address] Performed By: #### 5 7021-8, 7-7 ####[facility] LABCLIA [id number] [place] [address] [place] WBC (Bld) [#/Vol] 11.84 10*3/uL High 3.70-11.00 [facility] Comment on above: Order Comment: Speci men Type: BLOOD SPECIMENOrdering Facility: [facility] Address: [address] [place] [address] Performed By: #### 5 7021-8, 4537-7 ####[facility] LABIA [id number] [address] [place] CRP SerPl-mCncon 02-09-2024 CRP [Mass/Vol] 2.6 mg/dL High <0.9 [facility] Comment on above: Order Comment: Speci men Type: BLOOD SPECIMENOrdering Facility: [facility] Address: [address] [place] [address] Performed By: #### 1 988-5, 23936-5, 80748-0, 37043-7 ####[facility] LABCLIA [id number] [address] [place] ED NOTEon 02-09-2024 ED NOTE HNO ID: [id number] Author: TEMITOPE GONZALEZ RN Service: Nursing Author Type: Registered Nurse Type: ED Notes Filed: 02/09/2024 17:02 Note Text: Patient presents to the ED with c/o itching, swelling of legs, and toxins in his body. 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 2+ Edema to BLE. Came from a prison and is wearing a hospital gown and socks in triage. Normal [facility] ED PROV NOTEon 02-09-2024 ED PROV NOTE HNO ID: [id number] Author: FLY SOLITARIO DO Service: Emergency Medicine Author Type: Physician Type: ED Provider Notes Filed: 02/11/2024 06:45 Note Text: ED Provider Note Patient Name: Marycruz Vargas : 1960 SERVICE DATE: 02/09/24 History No chief complaint on file. HPI Pt is a 64 year old male w/ PMH of CLL, hidradenitis, AF on Xarelto who p/w concern for a toxin leaving his body. He also has had leg swelling over the last month. Denies SOB, fever, cough, CP, N/V/D, abdominal pain, purulent drainage from wound. Reports the wound has been improved and he has regular packing at the nursing facility in which he stays. Chart review: Admitted on 06/07/2023 for management of wound on buttocks PAST MEDICAL HISTORY No date: Abscess, groin 12/20/2016: Anemia of chronic disease Comment: Per heme during inpatient stay 11/2016 No date: Essential hypertension No date: Hepatitis B carrier (HCC) No date: HFrEF (heart failure with reduced ejection fraction) (HCC) No date: Hidradenitis suppurativa 12/20/2016: Iron deficiency anemia 07/17/2017: Low HDL (under 40) No date: Mixed hyperlipidemia 07/18/2018: Situational depression 12/20/2016: Smoker Comment: Started at age 16, Up to a PPD and as of 12/20/2016 doing about 1/2 PPD PAST SURGICAL HISTORY No date: IANDD PERIANAL ABSCESS SUPERFICIAL; Bilateral Comment: 12 yrs ago FAMILY HISTORY Problem Relation Age of Onset Hypertension Mother Diabetes Father Social History Tobacco Use Smoking status: Former Packs/day: 0.40 Years: 40.00 Additional pack years: 0.00 Total pack years: 16.00 Types: Cigarettes Smokeless tobacco: Never Tobacco comments: 4-5 cigarettes daily Vaping Use Vaping Use: Never used Substance and Sexual Activity Alcohol use: No Comment: rarely Drug use: Never Sexual activity: Not on file ALLERGIES No Known Allergies Review of Systems As noted above Physical Exam Vitals [02/09/24 1703] BP Pulse Temp Temp src Resp SpO2 Weight Height 143/73 65 36.9 ?C (98.4 ?F) Oral 18 100 % 120.2 kg (265 lb) -- Physical Exam Vitals reviewed. Constitutional: General: He is not in acute distress. Appearance: He is not ill-appearing or diaphoretic. HENT: Head: Normocephalic and atraumatic. Right Ear: External ear normal. Left Ear: External ear normal. Nose: Nose normal. Mouth/Throat: Mouth: Mucous membranes are moist. Pharynx: Oropharynx is clear. Eyes: General: No scleral icterus. Extraocular Movements: Extraocular movements intact. Conjunctiva/sclera: Conjunctivae normal. Cardiovascular: Rate and Rhythm: Normal rate and regular rhythm. Pulses: Normal pulses. Heart sounds: Normal heart sounds. Pulmonary: Effort: Pulmonary effort is normal. No respiratory distress. Breath sounds: Normal breath sounds. No stridor. No wheezing, rhonchi or rales. Abdominal: General: Abdomen is flat. There is no distension. Palpations: Abdomen is soft. Tenderness: There is no abdominal tenderness. There is no guarding or rebound. Musculoskeletal: General: Normal range of motion. Cervical back: Normal range of motion and neck supple. No rigidity. Right lower leg: Edema present. Left lower leg: Edema present. Comments: 3+ pitting edema in BLE Skin: General: Skin is warm and dry. Capillary Refill: Capillary refill takes less than 2 seconds. Findings: Rash present. No lesion. Comments: Right buttocks wound which is packed and has no purulent drainage, induration, tenderness, crepitus. No concerning findings when packing was removed. It was replaced. Neurological: General: No focal deficit present. Mental Status: He is alert and oriented to person, place, and time. Mental status is at baseline. Psychiatric: Comments: anxious Diagnostic Testing ED Labs Ordered and Reviewed BASIC METABOLIC PANEL - Abnormal; Notable for the following components: Result Value Ref Range Potassium 3.6 (*) 3.7 - 5.1 mmol/L All other components within normal limits C-REACTIVE PROTEIN - Abnormal; Notable for the following components: CRP 2.6 (*) <0.9 mg/dL All other components within normal limits COMPLETE BLOOD COUNT AND DIFFERENTIAL - Abnormal; Notable for the following components: WBC 11.84 (*) 3.70 - 11.00 k/uL Hemoglobin 11.7 (*) 13.0 - 17.0 g/dL MCV 78.4 (*) 80.0 - 100.0 fL MCH 23.4 (*) 26.0 - 34.0 pg MCHC 29.8 (*) 30.5 - 36.0 g/dL RDW-CV 15.9 (*) 11.5 - 15.0 % Abs Lymph (Normal + Reactive) 5.32 (*) 1.00 - 4.00 k/uL All other components within normal limits Narrative: This is an appended report. These results have been appended to a previously verified report. URINALYSIS WITH MICROSCOPIC, REFLEX CULTURE - Abnormal; Notable for the following components: Specific [place], Ur 1.040 (*) 1.005 - 1.030 Leuk Esterase Trace (*) Negative All other components within normal limits Narrative: This test was developed and its performanc (more content not included)... Normal [facility] ED Triage Noteon 02-09-2024 ED Triage Note HNO ID: [id number] Author: TEMITOPE GILL DO Service: Emergency Medicine Author Type: Physician Type: ED Triage Notes Filed: 02/09/2024 17:58 Note Text: ED INTAKE NOTE Patient Name: Marycruz Vargas Service Date: 02/09/24 BRIEF HPI: This is a 64 year old male who presents to the ED with: leg swelling for 1 month. H/o Leukemia BRIEF EXAM: BP 143/73 Pulse 65 Temp (Src) 98.4 (Oral) Resp 18 Wt 265 lb (120.2kg) SpO2 100% NAD Awake and Alert Non labored breathing INITIAL WORKUP AND DECISION MAKING: Orders Placed This Encounter US DVT LOWER BILAT BASIC METABOLIC PNL C-REACTIVE PROTEIN (CRP) CBC + DIFF NT PRO BNP Provider examination performed via virtual platform with assistance from bedside clinician. SIGNATURE: Temitope Gill DO Normal [facility] ESR Westergren method (Bld) [Velocity]on 02-09-2024 ESR (Bld) [Velocity] 16 mm/h High 0-15 [facility] Comment on above: Order Comment: Speci men Type: BLOOD SPECIMENOrdering Facility: [facility] Address: [address] [place] [address] Performed By: #### 5 7021-8, 4537-7 ####[facility] LABCLIA [id number] [facility] [place] [id number] [address] [place] Magnesium SerPl-mCncon 02-08 Magnesium [Mass/Vol] 2.2 mg/dL Normal 1.7-2.3 [facility] Comment on above: Order Comment: Speci men Type: BLOOD SPECIMENOrdering Facility: [facility] Address: [address] [place] [address] Performed By: #### 1 988-5, 51296-0, , ####[facility] LABCLIA [id number] [place] [id number] [facility] [place] NT-[facility]BNP [facility] Natriuretic peptide.B prohormone N-Terminal [Mass/Vol] 62 pg/mL Normal <125 [facility] Comment on above: Order Comment: Speci men Type: BLOOD SPECIMENOrdering Facility: [facility] Address: [address] [place] [address] Performed By: #### 1 988-5, 46868-5, 92480-1, ####[facility] LABCLIA [id number] [address] [place] US DVT LOWER BILon 4 US DVT LOWER ROCKY * * *Final Report* * * DATE OF EXAM: Feb 09 2024 10:15PM [place] [id number] - DVT LOWER ROCKY / PROCEDURE REASON: Leg deep vein thrombosis (DVT) suspected * * * * Physician Interpretation * * * * EXAMINATION: RIGHT AND LEFT LOWER EXTREMITY DEEP VENOUS ULTRASOUND WITH DOPPLER IMAGING CLINICAL HISTORY: Lower extremity swelling TECHNIQUE: Grayscale with compression maneuvers, color Doppler and spectral Doppler imaging of the right and left proximal deep veins was performed. Grayscale with compression maneuvers of the right and left peroneal and posterior tibial veins was performed. The right and left great and small saphenous veins were evaluated at their insertion to the deep system. Images were obtained and stored in a permanent archive. MQ: [id number] COMPARISON: None RESULT: RIGHT LOWER EXTREMITY PROXIMAL DEEP VEINS Distal External Iliac, Common Femoral and Proximal Profunda Veins: Compression: Normal Doppler: Normal, spontaneous respirophasic flow. Normal response to augmentation. Femoral vein: Compression: Normal Doppler: Normal, spontaneous respirophasic flow. Normal response to augmentation. Popliteal vein: Compression: Normal Doppler: Normal, spontaneous respirophasic flow. Normal response to augmentation. CALF DEEP VEINS Peroneal veins: Not identified. Posterior tibial veins: Not identified. Gastrocnemius and Soleal veins: Not imaged. SUPERFICIAL VEINS Great saphenous: Patent and compressible at insertion into common femoral vein; not otherwise assessed. Small Saphenous: Patent and compressible in the proximal calf, not otherwise assessed. LEFT LOWER EXTREMITY PROXIMAL DEEP VEINS Distal External Iliac, Common Femoral and Proximal Profunda Veins: Compression: Normal Doppler: Normal, spontaneous respirophasic flow. Normal response to augmentation. Femoral vein: Compression: Normal Doppler: Normal, spontaneous respirophasic flow. Normal response to augmentation. Popliteal vein: Compression: Normal Doppler: Normal, spontaneous respirophasic flow. Normal response to augmentation. CALF DEEP VEINS Peroneal veins: Not identified. Posterior tibial veins: Not identified. Gastrocnemius and Soleal veins: Not imaged. SUPERFICIAL VEINS Great saphenous: Patent and compressible at insertion into common femoral vein; not otherwise assessed. Small Saphenous: Patent and compressible in the proximal calf, not otherwise assessed. IMPRESSION: Negative study for proximal DVT in the left and right lower extremities. Nondiagnostic study for calf DVT in the left and right lower extremities. Negative study for superficial thrombophlebitis in the imaged segments of the left and right lower extremities. Sock Drier: CHEN Transcribe Date/Time: Feb 09 2024 10:17P Dictated by : GUERO HOLLINGSWORTH DO This examination was interpreted and the report reviewed and electronically signed by: ANALISA WONG MD on Feb 09 2024 10:58PM EST [id number] Normal [facility] Samy 02-08-2024 CNPN Telephone (DERMTW) -------- MARYCRUZ VARGAS ([id number]) 1960 M [facility] Date Time Provider Department 02/08/24 DERM AND PLASTICS DERMTW During your visit today, we recorded the following information about you: Zaida Smith RN 02/08/2024 11:02 AM Signed Spoke with patient. We have not seen patient at this facility yet- he is currently scheduled with Dr. Naranjo on 02/15/2024 for HS. Patient is currently in a prison. Has a history of Leukemia and HS (on Cosentyx- completed loading dose and is due today for the first of the maintenance). Was evaluated in the ER on 02/02/2024 and not admitted. He states that he has a disease and has wax and toxins coming out of my system. Head, legs, arms and fingertips are affected. He describes that due to the toxins on his face, it is hanging downward due to the weight. He is unable to sleep due to the itching. Continues to talk about toxins that are like dust coming out of his body. Reports 10-15 pounds of toxins is how much he has in his body. Reports edema to hips, legs and feet. In ER he was given Lasix for the edema. Patient feels that this is scary and disgusting and that he doesn't feel comfortable. Thinks he needs a machine to remove the toxins.Tastes it in his mouth. Can't stay clean- as soon as he showers he needs another one. We discussed the need to go to the ER for evaluation as we are unable to help him immediately as he continues to say he needs help now. Patient asked for me to admit him- explained that I'm unable to do this. Informed that he would have to be evaluated in the ER to be admitted if they think it is warranted. Patient called the nurse at the facility and had me talk with her on speaker. I briefly discussed that the patient would like to go to the ER and she told me that he was just there. Patient then said he needed to go today again. The nurse said that the doctor has to come around and write an order if ER is warranted. Patient asked that I call ahead and let them know that he was going to be arriving at the ER. Informed unable to do this as he didn't know which ER he was going to or if they would even approve him going. Plan is to wait for assessment from doctor in facility and see what happens after that. Patient agreeable to plan. BASHIR Mehta Michele 02/08/2024 11:41 AM Signed Patient calling wanting to speak with the nurse again. Patient may be reached @ [phone] (M) Zaida Smith RN 02/08/2024 12:18 PM Signed Spoke with patient. States that the nurse is going to inject his Cosentyx today. 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 Naranjo next Sunday. Feels much better after discussion regarding Cosentyx and the benefits of this medication with his condition. Zaida Smith RN Allergies As of Date: 02/08/2024 (No Known Allergies) Date Reviewed: 02/02/2024 Reviewed by: Misti Arguello RN - Fully Assessed Reason for Visit: Nurse Triage Call [[phone]] Prescriptions as of 02/08/2024 - clindamycin (CLEOCIN-T) 1 % gel Apply to affected area two times a day for 14 days. - secukinumab (COSENTYX PEN, 2 PENS,) 150 mg/mL Inject 300mg (2 pens) subcutaneously at weeks 0,1,2,3 and 4, then 300mg (2 pens) every 4 weeks thereafter - secukinumab (COSENTYX PEN, 2 PENS,) 150 mg/mL Inject 300mg (2 pens) every 4 weeks - molnupiravir 200 mg capsule - Clindamycin Phosphate (CLEOCIN T) 1 % lotion Apply to affected areas twice daily - ascorbic acid, vitamin C, (VITAMIN C) 500 mg tablet Take 500 mg by mouth every other day. - atorvastatin (LIPITOR) 10 mg tablet Take 10 mg by mouth daily at bedtime. - cephALEXin (KEFLEX) 500 mg capsule Take 500 mg by mouth two times a day. - VITAMIN D2 1,250 mcg (50,000 unit) capsule Take 50,000 Units by mouth every Sunday. - metoprolol tartrate, short acting, (LOPRESSOR) 25 mg tablet Take 25 mg by mouth two times a day. - minocycline (MINOCIN, DYNACIN) 100 mg capsule Take 100 mg by mouth two times a day. - temazepam (RESTORIL) 15 mg Take 15 mg by mouth daily at bedtime. - acetaminophen (TYLENOL) 325 mg tablet Take 650 mg by mouth every 6 hours as needed for pain. - lactobacillus rhamnosus (CULTURELLE) 10 billion cell capsule Take 1 capsule by mouth two times a day. - ibrutinib (IMBRUVICA) 420 mg tablet Take 1 tablet by mouth once daily. - ketoconazole (NIZORAL) 2 % shampoo Apply to affected area once daily as needed (dry skin). - loperamide (IMODIUM) 2 mg cap(s) Take 2 mg by mouth four times a day as needed for diarrhea. - therapeutic multivitamin-minerals (THERA-M PLUS) 9 mg iron-400 mcg tablet Take 1 tablet by mouth once daily. - ondansetron (ZOFRAN) 4 mg tablet Take 4 mg by mouth every 4 hours as needed for nausea/vomiting. - calcium carbonate (TUMS) 500 mg chew Take 500 mg by mouth o (more content not included)... Normal [facility] CBC W Auto Differential pane l (Bld)on 02-02-2024 Basophils (Bld) [#/Vol] 0.04 10*3/uL Normal <0.11 [facility] Comment on above: Order Comment: Speci men Type: BLOOD SPECIMEN [facility] Address: [address] [place] [address] Performed By: #### 5 7021-8 #### [facility] CLIA [id number] [address] [place] [address] [place] Basophils/100 WBC (Bld) 0.5 % Normal [facility] Comment on above: Order Comment: Speci men Type: BLOOD SPECIMEN [facility] Address: [address] [place] [address] Performed By: #### 5 7021-8 #### [facility] CLIA [id number] [address] [place] [address] [place] Differential cell count method Nom (Bld) Auto Normal [facility] Comment on above: Order Comment: Speci men Type: BLOOD SPECIMEN [facility] Address: [address] [place] [address] Performed By: #### 5 7021-8 #### [facility] CLIA [id number] [address] [place] [address] [place] Eosinophils (Bld) [#/Vol] 0.07 10*3/uL Normal <0.46 [facility] Comment on above: Order Comment: Speci men Type: BLOOD SPECIMEN [facility] Address: [address] [place] [address] Performed By: #### 5 7021-8 #### [facility] CLIA [id number] [address] [place] [address] [place] Eosinophils/100 WBC (Bld) 0.9 % Normal [facility] Comment on above: Order Comment: Speci men Type: BLOOD SPECIMEN [facility] Address: [address] [place] [address] Performed By: #### 5 7021-8 #### [facility] CLIA [id number] [address] [place] [address] [place] Erythrocyte distribution width (RBC) [Ratio] 15.9 % High 11.5-15.0 [facility] Comment on above: Order Comment: Speci men Type: BLOOD SPECIMEN [facility] Address: [address] [place] [address] Performed By: #### 5 7021-8 #### [facility] CLIA [id number] [address] [place] [address] [place] Hematocrit (Bld) [Volume fraction] 38.8 % Low 39.0-51.0 [facility] Comment on above: Order Comment: Speci men Type: BLOOD SPECIMEN [facility] Address: [facility] [place] [address] Performed By: #### 5 7021-8 #### [facility] CLIA [id number] [address] [place] [address] [place] Hemoglobin (Bld) [Mass/Vol] 11.7 g/dL Low 13.0-17.0 [facility] Comment on above: Order Comment: Speci men Type: BLOOD SPECIMEN [facility] Address: [address] [place] [address] Performed By: #### 5 7021-8 #### [facility] CLIA [id number] [address] [place] [address] [place] Immature granulocytes (Bld) [#/Vol] 0.03 10*3/uL Normal <0.10 [facility] Comment on above: Order Comment: Speci men Type: BLOOD SPECIMEN [facility] Address: [address] [place] [address] Performed By: #### 5 7021-8 #### [facility] CLIA [id number] [address] [place] [address] [place] Immature granulocytes/100 WBC (Bld) 0.4 % Normal [facility] Comment on above: Order Comment: Speci men Type: BLOOD SPECIMEN [facility]ing [facility] Address: [address] [place] [address] Performed By: #### 5 7021-8 #### [facility] CLIA [id number] [address] [place] [address] [place] Lymphocytes (Bld) [#/Vol] 1.63 10*3/uL Normal 1.00-4.00 [facility] Comment on above: Order Comment: Speci men Type: BLOOD SPECIMEN Ordering Facility: [facility] Address: [address] [place] [address] Performed By: #### 5 7021-8 #### [facility] CLIA [id number] [address] [place] [address] Lymphocytes/100 WBC (Bld) 20.1 % Normal [facility] Comment on above: Order Comment: Speci men Type: BLOOD SPECIMEN Ordering Facility: [facility] Address: [address] [place] [address] Performed By: #### 5 7021-8 #### [facility] CLIA [id number] [address] [place] [address] [place] MCH (RBC) [Entitic mass] 23.7 pg Low 26.0-34.0 [facility] Comment on above: Order Comment: Speci men Type: BLOOD SPECIMEN Ordering Facility: [facility] Address: [address] [place] [address] Performed By: #### 5 7021-8 #### [facility] CLIA [id number] [address] [place] [address] [place] MCHC (RBC) [Mass/Vol] 30.2 g/dL Low 30.5-36.0 [facility] Comment on above: Order Comment: Speci men Type: BLOOD SPECIMEN Ordering Facility: [facility] Address: [address] [place] [address] Performed By: #### 5 7021-8 #### [facility] CLIA [id number] [address] [place] [address] [place] MCV (RBC) [Entitic vol] 78.5 fL Low 80.0-100.0 [facility] Comment on above: Order Comment: Speci men Type: BLOOD SPECIMEN Ordering Facility: [facility] Address: [address] [place] [address] Performed By: #### 5 7021-8 #### [facility] CLIA [id number] [address] [place] [address] [place] Monocytes (Bld) [#/Vol] 0.63 10*3/uL Normal <0.87 [facility] Comment on above: Order Comment: Speci men Type: BLOOD SPECIMEN Ordering Facility: [facility] Address: [address] [place] [address] Performed By: #### 5 7021-8 #### [facility] CLIA [id number] [address] [place] [address] [place] Monocytes/100 WBC (Bld) 7.8 % Normal [facility] Comment on above: Order Comment: Speci men Type: BLOOD SPECIMEN Ordering Facility: [facility] Address: [address] [place] [address] Performed By: #### 5 7021-8 #### [facility] CLIA [id number] [address] [place] [address] [place] Neutrophils (Bld) [#/Vol] 5.71 10*3/uL Normal 1.45-7.50 [facility] Comment on above: Order Comment: Speci men Type: BLOOD SPECIMEN Ordering Facility: [facility] Address: [address] [place] [address] Performed By: #### 5 7021-8 #### [facility] CLIA [id number] [address] [place] [address] [place] Neutrophils/100 WBC (Bld) 70.3 % Normal [facility] Comment on above: Order Comment: Speci men Type: BLOOD SPECIMEN Ordering Facility: [facility] Address: [address] [place] [address] Performed By: #### 5 7021-8 #### [facility] CLIA [id number] [address] [place] [address] [place] Nucleated RBC (Bld) [#/Vol] 10*3/uL Normal <0.01 [facility] Comment on above: Order Comment: Speci men Type: BLOOD SPECIMEN Ordering Facility: [facility] Address: [address] [place] [address] Performed By: #### 5 7021-8 #### [facility] CLIA [id number] [address] [place] [address] [place] Nucleated RBC/100 WBC (Bld) [Ratio] 0.0 /100 WBC Normal [facility] Comment on above: Order Comment: Speci men Type: BLOOD SPECIMEN Ordering Facility: [facility] Address: [address] [place] [address] Performed By: #### 5 7021-8 #### [facility] CLIA [id number] [address] [place] [address] [place] Platelet mean volume (Bld) [Entitic vol] 10.7 fL Normal 9.0-12.7 [facility] Comment on above: Order Comment: Speci men Type: BLOOD SPECIMEN Ordering Facility: [facility] Address: [address] [place] [address] Performed By: #### 5 7021-8 #### [facility] CLIA [id number] [address] [place] [address] [place] Platelets (Bld) [#/Vol] 186 10*3/uL Normal 150-400 [facility] Comment on above: Order Comment: Speci men Type: BLOOD SPECIMEN Ordering Facility: [facility] Address: [address] [place], [place] [address] Performed By: #### 5 7021-8 #### [facility] CLIA [id number] [address] [place] [address] RBC (Bld) [#/Vol] 4.94 10*6/uL Normal 4.20-6.00 [facility] Comment on above: Order Comment: Speci men Type: BLOOD SPECIMEN Ordering Facility: [facility] Address: [address] [place], [place] [address] Performed By: #### 5 7021-8 #### [facility] CLIA [id number] [address] [place] [address] WBC (Bld) [#/Vol] 8.11 10*3/uL Normal 3.70-11.00 [facility] Comment on above: Order Comment: Speci men Type: BLOOD SPECIMEN Ordering Facility: [facility] Address: [address] [place] [address] Performed By: #### 5 7021-8 #### [facility] CLIA [id number] [address] [place] [address] OF [facility] Comprehensive metabolic 2000 panelon 02-02-2024 Albumin [Mass/Vol] 3.3 g/dL Normal 3.2-5.0 [facility] Comment on above: Order Comment: Speci men Type: BLOOD SPECIMEN Ordering Facility: [facility] Address: [address] [place], [place] [address] Performed By: #### 2 4323-8, 6-3 #### [facility] CLIA [id number] [address] [place] [address] ALP [Catalytic activity/Vol] 94 U/L Normal 45-117 [facility] Comment on above: Order Comment: Speci men Type: BLOOD SPECIMEN Ordering Facility: [facility] Address: [address] [place] [address] Performed By: #### 2 4323-8, 3016-3 #### [facility] CLIA [id number] [address] [place] [address] [place] ALT [Catalytic activity/Vol] 13 U/L Normal 13-61 [facility] Comment on above: Order Comment: Barney laguna Type: BLOOD SPECIMEN Ordering Facility: [facility] Address: [address] [place] [address] Result Comment: Resu lts may be falsely depressed after the administration of Sulfasalazine and/or Sulfapyridine. Performed By: #### 2 4323-8, 3016-3 #### [facility] CLIA [id number] [address] [place] [address] [place] Anion gap [Moles/Vol] 3 mmol/L Low 5-16 [facility] Comment on above: Order Comment: Barney laguna Type: BLOOD SPECIMEN Ordering Facility: [facility] Address: [address] [place] [address] Performed By: #### 2 4323-8, 3016-3 #### [facility] CLIA [id number] [address] [place] [address] [place] AST [Catalytic activity/Vol] 20 U/L Normal 8-34 [facility] Comment on above: Order Comment: Barney laguna Type: BLOOD SPECIMEN Ordering Facility: [facility] Address: [address] [place] [address] Result Comment: Resu lts may be falsely depressed after the administration of Sulfasalazine and/or Sulfapyridine. Performed By: #### 2 4323-8, 3016-3 #### [facility] CLIA [id number] [address] [place] [address] [place] Bilirubin [Mass/Vol] 0.6 mg/dL Normal 0.2-1.0 [facility] Comment on above: Order Comment: Barney laguna Type: BLOOD SPECIMEN Ordering Facility: [facility] Address: [address] [place] [address] Performed By: #### 2 4323-8, 3016-3 #### [facility] CLIA [id number] [address] [place], [place] [address] [place] Calcium [Mass/Vol] 9.3 mg/dL Normal 8.5-10.5 [facility] Comment on above: Order Comment: Speci men Type: BLOOD SPECIMEN Ordering Facility: [facility] Address: [address] [place], [place] [address] Performed By: #### 2 4323-8, 3015-3 #### [facility] CLIA [id number] [address] [place] [address] [place] Chloride [Moles/Vol] 106 mmol/L Normal 98-107 [facility] Comment on above: Order Comment: Speci men Type: BLOOD SPECIMEN Ordering Facility: [facility] Address: [address] [place] [address] Performed By: #### 2 4323-8, 3 #### [facility] CLIA [id number] [address] [place] [address] [place] CO2 [Moles/Vol] 30 mmol/L Normal 21-32 [facility] Comment on above: Order Comment: Speci men Type: BLOOD SPECIMEN Ordering Facility: [facility] Address: [address] [place] [address] Performed By: #### 2 4323-8, 3 #### [facility] CLIA [id number] [address] [place] [address] [place] Creatinine [Mass/Vol] 0.95 mg/dL Normal 0.50-1.40 [facility] Comment on above: Order Comment: Speci men Type: BLOOD SPECIMEN Ordering Facility: [facility] Address: [address] [place], [place] [address] Result Comment: Ainsley ents receiving either N-Acetylcysteine (NAC) or Metamizole prior to venipuncture, may have falsely depressed results. Performed By: #### 2 4323-8, 3 #### [facility] CLIA [id number] [address] [place] [address] [place] Creatinine and Glomerular filtration rate.predicted panel (S/P/Bld) 89 mL/min/1.73m??? Normal >=60 [facility] Comment on above: Order Comment: Barney laguna Type: BLOOD SPECIMEN Ordering Facility: [facility] Address: [address] [place] [address] Result Comment: Bhargavi mated Glomerular Filtration Rate (eGFR) is calculated using the 2020 CKD-EPI creatinine equation. This equation utilizes serum creatinine, sex, and age as parameters. The creatinine assay has traceable calibration to isotope dilution-mass spectrometry. Refer to KDIGO guidelines for clinical interpretation. In patients with unstable renal function, e.g. those with acute kidney injury, the eGFR may not accurately reflect actual GFR. Performed By: #### 2 4323-8, 6-3 #### [facility] CLIA [id number] [address] [place] [address] [place] Glucose [Mass/Vol] 111 mg/dL High 70-100 [facility] Comment on above: Order Comment: Barney laguna Type: BLOOD SPECIMEN Ordering Facility: [facility] Address: [address] [place] [address] Result Comment: The [place] [employer] (ADA) provides guidance for cutoff values for fasting glucose and random glucose. The ADA defines fasting as no caloric intake for at least 8 hours. Fasting plasma glucose results between 100 to 125 mg/dL indicate increased risk for diabetes (prediabetes). Fasting plasma glucose results greater than or equal to 126 mg/dL meet the criteria for diagnosis of diabetes. In the absence of unequivocal hyperglycemia, results should be confirmed by repeat testing. In a patient with classic symptoms of hyperglycemia or hyperglycemic crisis, random plasma glucose results greater than or equal to 200 mg/dL meet the criteria for diagnosis of diabetes. Reference: Standards of Medical Care in Diabetes 2016, [place] [employer]. Diabetes Care. 2016.39(Suppl 1). Results may be falsely elevated after the administration of Sulfapyridine. Results may be falsely depressed after the administration of Sulfasalazine. Performed By: #### 2 4323-8, 3015-3 #### [facility] CLIA [id number] [address] [place], [place] [address] [place] Potassium [Moles/Vol] 3.6 mmol/L Normal 3.5-5.1 [facility] Comment on above: Order Comment: Speci men Type: BLOOD SPECIMEN Ordering Facility: [facility] Address: [address] [place], [place] [address] Performed By: #### 2 4323-8, 3016-3 #### [facility] CLIA [id number] [address] [place], [place] [address] [place] Protein [Mass/Vol] 6.9 g/dL Normal 6.0-8.5 [facility] Comment on above: Order Comment: Speci men Type: BLOOD SPECIMEN Ordering Facility: [facility] Address: [address] [place], [place] [address] Performed By: #### 2 4323-8, 6-3 #### [facility] CLIA [id number] [address] [place], [place] [address] [place] Sodium [Moles/Vol] 139 mmol/L Normal 136-145 [facility] Comment on above: Order Comment: Speci men Type: BLOOD SPECIMEN Ordering Facility: [facility] Address: [address] [place] [address] Performed By: #### 2 4323-8, 6-3 #### [facility] CLIA [id number] [address] [place], [place] [address] [place] Urea nitrogen [Mass/Vol] 19 mg/dL Normal 7-26 [facility] Comment on above: Order Comment: Speci men Type: BLOOD SPECIMEN Ordering Facility: [facility] Address: [address] [place], [place] [address] Performed By: #### 2 4323-8, 6-3 #### [facility] CLIA [id number] [address] [place], [place] [address] [place] ED NOTEon 02-02-2024 ED NOTE HNO ID: [id number] Author: SAM CARR RN Service: Emergency Medicine Author Type: Registered Nurse Type: ED Notes Filed: 02/02/2024 17:56 Note Text: Transport: [facility] [place] Time called: 1750 Destination: [facility] [place] ETA: 2000 Normal [facility] ED NOTE HNO ID: [id number] Author: RADHA KONG, Sabra Service: ? Author Type: First Line Supervisor and Board Certified Arts Therapist Type: ED Notes Filed: 02/02/2024 11:10 Note Text: Bed: 42-ED Expected date: 02/02/24 Expected time: Means of arrival: Comments: EMS [facility] ED PROV NOTEon 02-02-2024 ED PROV NOTE HNO ID: [id number] Author: AMBERLY BOX JR, MD Service: ? Author Type: Physician Type: ED Provider Notes Filed: 02/02/2024 17:24 Note Text: ED Provider Note Patient Name: Marycruz Vargas : 1960 SERVICE DATE: 02/02/24 History Patient presents with: Pruritus: Pt states I have toxins oozing out of my body Edema: Bilateral lower extremity edema 63-year-old male here for evaluation and has he has a history of hidradenitis. He follows with dermatology. He states that he had gotten a shot and is due for another shot soon. The previous shot did dry it up . He states that starting to come out again and that he has toxins coming out from his body. He states all over on his face and scalp and arms. He is scheduled to see dermatology in 2 weeks. He said he is very pruritic. He was noted to have some swelling of the lower extremities. This has been ongoing for the last month as well. Denies any shortness of breath. Did have a BNP T obtained upon review of labs just recently within the last 2 days that was within normal limits. History provided by: Patient PAST MEDICAL HISTORY No date: Abscess, groin 12/20/2016: Anemia of chronic disease Comment: Per heme during inpatient stay 11/2016 No date: Essential hypertension No date: Hepatitis B carrier (HCC) No date: HFrEF (heart failure with reduced ejection fraction) (HCC) No date: Hidradenitis suppurativa 12/20/2016: Iron deficiency anemia 07/17/2017: Low HDL (under 40) No date: Mixed hyperlipidemia 07/18/2018: Situational depression 12/20/2016: Smoker Comment: Started at age 16, Up to a PPD and as of 12/20/2016 doing about 1/2 PPD PAST SURGICAL HISTORY No date: IANDD PERIANAL ABSCESS SUPERFICIAL; Bilateral Comment: 12 yrs ago FAMILY HISTORY Problem Relation Age of Onset Hypertension Mother Diabetes Father Social History Tobacco Use Smoking status: Former Packs/day: 0.40 Years: 40.00 Additional pack years: 0.00 Total pack years: 16.00 Types: Cigarettes Smokeless tobacco: Never Tobacco comments: 4-5 cigarettes daily Vaping Use Vaping Use: Never used Substance and Sexual Activity Alcohol use: No Comment: rarely Drug use: Never Sexual activity: Not on file ALLERGIES No Known Allergies Review of Systems All other systems reviewed and are negative. Physical Exam Vitals [02/02/24 1112] BP Pulse Temp Temp src Resp SpO2 Weight Height 118/63 62 36.7 ?C (98.1 ?F) Oral 18 100 % 117.9 kg (260 lb) 1.93 m (6' 4) Physical Exam Vitals and nursing note reviewed. Constitutional: General: He is not in acute distress. Cardiovascular: Rate and Rhythm: Normal rate and regular rhythm. Pulmonary: Breath sounds: Normal breath sounds. Abdominal: Palpations: Abdomen is soft. Tenderness: There is no abdominal tenderness. Musculoskeletal: Cervical back: Neck supple. Right lower leg: Edema (2-3+) present. Left lower leg: Edema (2-3+) present. Skin: Comments: I do not appreciate any evidence of secretions or discharge from the skin in the areas patient specified. Neurological: Mental Status: He is alert. Diagnostic Testing ED Labs Ordered and Reviewed COMPREHENSIVE METABOLIC PANEL - Abnormal; Notable for the following components: Result Value Ref Range Glucose 111 (*) 70 - 100 mg/dL Anion Gap 3 (*) 5 - 16 mmol/L All other components within normal limits COMPLETE BLOOD COUNT AND DIFFERENTIAL - Abnormal; Notable for the following components: Hemoglobin 11.7 (*) 13.0 - 17.0 g/dL Hematocrit 38.8 (*) 39.0 - 51.0 % MCV 78.5 (*) 80.0 - 100.0 fL MCH 23.7 (*) 26.0 - 34.0 pg MCHC 30.2 (*) 30.5 - 36.0 g/dL RDW-CV 15.9 (*) 11.5 - 15.0 % All other components within normal limits THYROID STIMULATING HORMONE - Normal Procedures ED Course / Clinical Impression Clinical Impressions as of 02/02/24 1724 Hidradenitis suppurativa Swelling of bilateral lower extremities MDM / Disposition / Plan 63-year-old male presents for evaluation is concerned about worsening of the hidradenitis that he has. He feels like the toxins are coming out of his skin. I did not find any erythema of the skin. No evidence of abscess noted throughout the scalp or in the facial area or skin that he was concerned about. Lab work reveals no leukocytosis and previously he does have leukocytosis with his history of CLL. Has started on Cosentyx. Scheduled to follow with dermatology in 2 weeks. At this time review of the note did recommended clindamycin cream 1%. We will do this topically and he will until he can see dermatology in 2 weeks given his concern for recurrence. He does have some swelling lower extremities. He thinks that this is related to the hidradenitis. He had a BNP T obtained recently that was negative. Renal function is normal. TSH is normal. Protein albumin levels are normal. Exact etiology of the swelling is uncertain. He is started on Lasix. He has not had (more content not included)... Normal [facility] TSH SerPl-aCncon 02-02-2024 TSH Qn 3.717 m[IU]/L Normal 0.358-3.740 [facility] Comment on above: Order Comment: Speci men Type: BLOOD SPECIMEN Ordering Facility: [facility] Address: [address] [place] [address] Result Comment: 3rd generation ultra sensitive TSH. Performed By: #### 2 4323-8, 3016-3 #### [facility] CLIA [id number] [address] [place] [address] [place] CBC W/Diff, Automatedon 11-30 Absolute Lymph 2.94 X10 3/uL Normal 0.83-4.51 [facility] Comment on above: Performed By: #### M 100.678, M100.2200, L400.0001 #### [facility] [address] [place], [address] Absolute Neut 9.5 X10 3/uL High 2.0-7.7 [facility] Comment on above: Performed By: #### M 100.678, M100.2200, L400.0001 #### [facility] [address] [place], [address] Basophils/100 WBC (Bld) 0.5 % Normal 0-1 [facility] Comment on above: Performed By: #### M 100.678, M100.2200, L400.0001 #### [facility] [address] [place], [address] Eosinophils/100 WBC (Bld) 0.6 % Normal 0-5 [facility] Comment on above: Performed By: #### M 100.678, M100.2200, L400.0001 #### [facility] [address] [place], [address] Erythrocyte distribution width (RBC) [Ratio] 15.7 % High 11.6-14.6 [facility] Comment on above: Performed By: #### M 100.678, M100.2200, L400.0001 #### [facility] [address] [place], [address] Hematocrit (Bld) [Volume fraction] 41.1 % Normal 40-54 [facility] Comment on above: Performed By: #### M 100.678, M100.2200, L400.0001 #### [facility] [address] [place], [address] Hemoglobin (Bld) [Mass/Vol] 12.2 g/dL Low 13.0-16.5 [facility] Comment on above: Performed By: #### M 100.678, M100.2200, L400.0001 #### [facility] [address] [place], [address] IG% 0.400 Normal 0.0-0.9 [facility] Comment on above: Result Comment: IG% - Immature Granulocytes (promyelocytes, myelocytes and metamyelocytes) > 1% indicates that a LEFT SHIFT is Present. Performed By: #### M 100.678, M100.2200, L400.0001 #### [facility] [address] [place], [address] Lymphocytes/100 WBC (Bld) 21.8 % Normal 19-41 [facility] Comment on above: Performed By: #### M 100.678, M100.2200, L400.0001 #### [facility] [address] [place], [address] MCH (RBC) [Entitic mass] 23.4 pg Low 27.0-32.0 [facility] Comment on above: Performed By: #### M 100.678, M100.2200, L400.0001 #### [facility] [address] [place], [address] MCHC (RBC) [Mass/Vol] 29.7 g/dL Low 32-36 [facility] Comment on above: Performed By: #### M 100.678, M100.2200, L400.0001 #### [facility] [address] [place], [address] MCV (RBC) [Entitic vol] 78.9 fL Low 80-94 [facility] Comment on above: Performed By: #### M 100.678, M100.2200, L400.0001 #### [facility] [address] [place], [address] Monocytes/100 WBC (Bld) 5.9 % Normal 0-10 [facility] Comment on above: Performed By: #### M 100.678, M100.2200, L400.0001 #### [facility] [address] [place], [address] Neutrophils/100 WBC (Bld) 70.8 % High 47-70 [facility] Comment on above: Performed By: #### M 100.678, M100.2200, L400.0001 #### [facility] [address] [place], [address] Nucleated RBC (Bld) [#/Vol] 0 10*3/uL Normal 0-5 [facility] Comment on above: Performed By: #### M 100.678, M100.2200, L400.0001 #### [facility] [address] [place], [address] Platelet mean volume (Bld) [Entitic vol] 10.9 fL Normal 6.2-12.0 [facility] Comment on above: Performed By: #### M 100.678, M100.2200, L400.0001 #### [facility] [address] [place], [address] Platelets (Bld) [#/Vol] 287 10*3/uL Normal 150-450 [facility] Comment on above: Performed By: #### M 100.678, M100.2200, L400.0001 #### [facility] [address] [place], [address] RBC (Bld) [#/Vol] 5.21 10*6/uL Normal 4.6-6.2 [facility] Comment on above: Performed By: #### M 100.678, M100.2200, L400.0001 #### [facility] [address] [place], [address] RDW SD 44.3 fl High 35.1-43.9 [facility] Comment on above: Performed By: #### M 100.678, M100.2200, L400.0001 #### [facility] [address] [place], [address] WBC (Bld) [#/Vol] 13.5 10*3/uL High 4.4-11.0 [facility] Comment on above: Performed By: #### M 100.678, M100.2200, L400.0001 #### [facility] [address] [place], [address] Comprehensive Metabolic Prof ilon 12-11-2023 Albumin [Mass/Vol] 3.3 g/dL Normal 3.2-5.0 [facility] Comment on above: Order Comment: 1 Performed By: #### M 100.678, M100.2200, L400.0001 #### [facility] [address] [place], [address] Albumin/Globulin [Mass ratio] 0.8 {ratio} Low 0.9-2.4 [facility] Comment on above: Order Comment: 1 Performed By: #### M 100.678, M100.2200, L400.0001 #### [facility] [address] [place], [address] ALK P 111 U/L Normal 45-117 [facility] Comment on above: Order Comment: 1 Performed By: #### M 100.678, M100.2200, L400.0001 #### [facility] [address] [place], [address] ALT [Catalytic activity/Vol] 17 U/L Normal 16-61 [facility] Comment on above: Order Comment: 1 Performed By: #### M 100.678, M100.2200, L400.0001 #### [facility] [address] [place], [address] AST [Catalytic activity/Vol] 16 U/L Normal 15-37 [facility] Comment on above: Order Comment: 1 Performed By: #### M 100.678, M100.2200, L400.0001 #### [facility] [address] [place], [address] Bilirubin [Mass/Vol] 0.50 mg/dL Normal 0.20-1.00 [facility] Comment on above: Order Comment: 1 Result Comment: For patients on eltrombopag therapy, use of Dimension Foley TBIL is not recommended. Performed By: #### M 100.678, M100.2200, L400.0001 #### [facility] [address] [place], [address] BUN/CRE 15.5 RATIO Normal 10-20 [facility] Comment on above: Order Comment: 1 Performed By: #### M 100.678, M100.2200, L400.0001 #### [facility] [address] [place], [address] CA,Total 9.1 mg/dL Normal 8.5-10.1 [facility] Comment on above: Order Comment: 1 Performed By: #### M 100.678, M100.2200, L400.0001 #### [facility] [address] [place], [address] Chloride [Moles/Vol] 106 mmol/L Normal 98-107 [facility] Comment on above: Order Comment: 1 Performed By: #### M 100.678, M100.2200, L400.0001 #### [facility] [address] [place], [address] CO2 [Moles/Vol] 24.0 mmol/L Normal 21.0-32.0 [facility] Comment on above: Order Comment: 1 Performed By: #### M 100.678, M100.2200, L400.0001 #### [facility] [address] [place], [address] Creatinine [Mass/Vol] 1.03 mg/dL Normal 0.70-1.30 [facility] Comment on above: Order Comment: 1 Result Comment: The validity of the calculated GFR GFRAA in patients over 70 years has not been determined. Clinical correlation is essential. Performed By: #### M 100.678, M100.2200, L400.0001 #### [facility] [address] [place], [address] ECRCL 102.03 ml/min Normal [facility] Comment on above: Order Comment: 1 Performed By: #### M 100.678, M100.2200, L400.0001 #### [facility] [address] [place], [address] EST GFR - AA 93 mL/min Normal >60 [facility] Comment on above: Order Comment: 1 Result Comment: Afri can [place] GFR Calc Performed By: #### M 100.678, M100.2200, L400.0001 #### [facility] [address] [place], [address] GAP 6 Normal 5-15 [facility] Comment on above: Order Comment: 1 Performed By: #### M 100.678, M100.2200, L400.0001 #### [facility] [address] [place], [address] GFR/1.73 sq M.predicted among non-blacks MDRD (S/P/Bld) [Vol rate/Area] 77 mL/min/{1.73_m2} Normal >60 [facility] Comment on above: Order Comment: 1 Result Comment: Non- GFR Calc Performed By: #### M 100.678, M100.2200, L400.0001 #### [facility] [address] [place], [address] Globulin (S) [Mass/Vol] 4.1 g/dL Normal 2.2-4.2 [facility] Comment on above: Order Comment: 1 Performed By: #### M 100.678, M100.2200, L400.0001 #### [facility] [address] [place], [address] Glucose [Mass/Vol] 97 mg/dL Normal 74-106 [facility] Comment on above: Order Comment: 1 Performed By: #### M 100.678, M100.2200, L400.0001 #### [facility] [address] [place], [address] Potassium [Moles/Vol] 3.8 mmol/L Normal 3.5-5.1 [facility] Comment on above: Order Comment: 1 Performed By: #### M 100.678, M100.2200, L400.0001 #### [facility] [address] [place], [address] Sodium [Moles/Vol] 136 mmol/L Normal 136-145 [facility] Comment on above: Order Comment: 1 Performed By: #### M 100.678, M100.2200, L400.0001 #### [facility] [address] [place], [address] T PROT 7.4 g/dL Normal 6.4-8.2 [facility] Comment on above: Order Comment: 1 Performed By: #### M 100.678, M100.2200, L400.0001 #### [facility] [address] [place], [address] Urea nitrogen [Mass/Vol] 16 mg/dL Normal 7-18 [facility] Comment on above: Order Comment: 1 Performed By: #### M 100.678, M100.2200, L400.0001 #### [facility] [address] [place], [address] Ferritinon 12-11-2023 Ferritin [Mass/Vol] 40 ng/mL Normal 26-388 [facility] Comment on above: Order Comment: 1 Performed By: #### M 100.678, M100.2200, L400.0001 #### [facility] [address] [place], [address] Iron+Iron Binding Capacityon 12-11-2023 Iron [Mass/Vol] 28 ug/dL Low 65-175 [facility] Comment on above: Order Comment: 1 Performed By: #### M 100.678, M100.2200, L400.0001 #### [facility] [address] [place], [address] IRON SATURATION 8.0 Low 15.0-55.0 [facility] Comment on above: Order Comment: 1 Performed By: #### M 100.678, M100.2200, L400.0001 #### [facility] [address] [place], [address] TIBC 349 ug/dL Normal 250-450 [facility] Comment on above: Order Comment: 1 Performed By: #### M 100.678, M100.2200, L400.0001 #### [facility] [address] [place], [address] LDHon 12-11-2023 LDH 175 U/L Normal 87-241 [facility] Comment on above: Order Comment: 1 Performed By: #### M 100.678, M100.2200, L400.0001 #### [facility] [address] [place], [address] Oncology Visit Reporton 11-30 Oncology Visit Report [facility] [address] [place] [address] OFFICE VISIT Date of Service: 12/11/23 1443 MR#: [id number] Acct: [id number] Name: MARYCRUZ VARGAS Rep #: [id number] : 1960 From: Christopher Mccabe MD Age/Sex: 63/M Location: [facility] Status: Signed HPI Subjective Date of Service 12/11/23 Chief Complaint CLL on treatment History of Present Illness 62-year-old male who was hospitalized at [facility] March 15-2020 with severe anemia with a hemoglobin of 3 g per DL and heart failure. 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 He was noted to have a markedly elevated mature lymphocyte count, normal platelet count , absolute neutrophil count. 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 March 16, 2021 peripheral blood FISH: 96% of nucleated cells were positive for 13 q. deletion, isolated abnormality. He was transfused with a total of 4 units of packed red blood cells and started on prednisone 1 mg/kg (100 mg) daily. He was seen 1 week following discharge with recurrence of hemolytic anemia despite being on steroids (though compliance was questioned) and was readmitted to the hospital March 30, through April 04 2021 where he was continued under supervision with prednisone and 4 days of IVIG were given and transfused with packed red blood cells again. Patient himself is a poor historian, appears to seek medical help only when very ill. Records from [facility] the most recent of which was in 2018 indicated that he was under treatment for chronic hidradenitis suppurativa (for which he was treated with repeated courses of antibiotics, steroids, and Humira), chronic iron deficiency anemia, anemia of chronic disease (for which he received oral and IV iron). He was last seen in November 2018. At that time he was evaluated for possible hepatitis due to B virus by hepatology and it was eventually concluded that no active chronic viral hepatitis was present. Repeat evaluation in March 2021 showed no evidence of chronic virus hepatitis B or C. Treatment: * March 2021 high-dose steroids. * April 14-June 02, 2021 Rituxan (8 weeks) HI then rapidly relapsing; Hemolysis significantly improved in addition to a partial response in CLL. * Ibrutinib August 02, 2021 interruptions January 2022 through July 2022 due to intercurrent acute illnesses with admissions to hospitals and SNF for rehab and finally to a long-term alf facility in [facility]. 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 Anemia, macrocytic Bilateral lower extremity edema Chronic lymphocytic leukemia Edema, lower extremity Surgical History H/O foot surgery History of tonsillectomy Family History Father Diabetes Mother Hypertension Social History (Updated 12/11/23 @ 14:52 by Jyoti Main) household members: none Smoking Status: Former smoker second hand exposure: No alcohol intake: current alcohol intake frequency: holidays/special occasions only details: occasionally diet: low salt estelle/baptist: Sabianism seatbelt use: always do you feel safe at home: Yes YARITZA Galarza Living at [facility], happy with care there Constitutional Constitutional: Reports other Details: Were occasions when he had chills and sweats but no fever usually lasting for less than 24 hours ; Denies anorexia, chills, fatigue, fever(s), night sweats or weight loss Eyes Eyes: Reports systems reviewed and no addt'l complaints, except as documented ENT HEENT: Reports systems reviewed and no addt'l complaints, except as documented; Denies bleeding gums, epistaxis or mouth lesions Cardiovascular Cardiovascular: Denies chest pain, dyspnea or leg edema Respiratory/Chest Respiratory/Chest: Denies chest tightness, cough, dyspnea or hemoptysis Gastrointestinal Gastrointestinal: Denies abdominal pain, dyspepsia, hematochezia or melena Genitourinary Genitourinary: Denies change in urinary stream or hematuria Musculoskeletal Musculoskeletal: Denies arthralgias or back pain Integumentary Integumentary: Reports bleeding lesions, non-healing lesions, wounds and other Details: Chronic ulcerated lesions in the buttocks and perineum with minimal bleeding since anticoagulation was permanently discontinued and he started sy (more content not included)... Normal [facility] Retic Panelon 12-11-2023 IM RET FRACTION 19.40 High 3.00-15.90 [facility] Comment on above: Performed By: #### M 100.678, M100.2200, L400.0001 #### [facility] [address] [place], [place], [address] RET-HE 26.8 pg Low 30-35 [facility] Comment on above: Performed By: #### M 100.678, M100.2200, L400.0001 #### [facility] [address] [place], [place], [address] Retic Count 2.41 High 0.5-1.5 [facility] Comment on above: Performed By: #### M 100.678, M100.2200, L400.0001 #### [facility] [address] [place], [address] Basic metabolic 2000 panelon 11-26-2023 Anion gap [Moles/Vol] 7 mmol/L Normal 5-16 [facility] Comment on above: Order Comment: Speci men Type: BLOOD SPECIMEN Ordering Facility: [facility] Address: [address] [place] [address] Performed By: #### 2 4321-2 #### [facility] CLIA [id number] [address] [place] [address] [place] Calcium [Mass/Vol] 9.4 mg/dL Normal 8.5-10.5 [facility] Comment on above: Order Comment: Speci men Type: BLOOD SPECIMEN Ordering Facility: [facility] Address: [address] [place] [address] Performed By: #### 2 4321-2 #### [facility] CLIA [id number] [address] [place] [address] [place] Chloride [Moles/Vol] 106 mmol/L Normal 98-107 [facility] Comment on above: Order Comment: Speci men Type: BLOOD SPECIMEN Ordering Facility: [facility] Address: [address] [place] [address] Performed By: #### 2 4321-2 #### [facility] CLIA [id number] [address] [place] [address] [place] CO2 [Moles/Vol] 25 mmol/L Normal 21-32 [facility] Comment on above: Order Comment: Speci men Type: BLOOD SPECIMEN Ordering Facility: [facility] Address: [address] [place] [address] Performed By: #### 2 4321-2 #### [facility] CLIA [id number] [address] [place] [address] [place] Creatinine [Mass/Vol] 0.84 mg/dL Normal 0.50-1.40 [facility] Comment on above: Order Comment: Barney laguna Type: BLOOD SPECIMEN Ordering Facility: [facility] Address: [address] [place] [address] Result Comment: Ainsley ents receiving either N-Acetylcysteine (NAC) or Metamizole prior to venipuncture, may have falsely depressed results. Performed By: #### 2 4321-2 #### [facility] CLIA [id number] [address] [place] [address] Creatinine and Glomerular filtration rate.predicted panel (S/P/Bld) 97 mL/min/1.73m??? Normal >=60 [facility] Comment on above: Order Comment: Barney laguna Type: BLOOD SPECIMEN Ordering Facility: [facility] Address: [address] [place] [address] Result Comment: Bhargavi mated Glomerular Filtration Rate (eGFR) is calculated using the 2020 CKD-EPI creatinine equation. This equation utilizes serum creatinine, sex, and age as parameters. The creatinine assay has traceable calibration to isotope dilution-mass spectrometry. Refer to KDIGO guidelines for clinical interpretation. In patients with unstable renal function, e.g. those with acute kidney injury, the eGFR may not accurately reflect actual GFR. Performed By: #### 2 4321-2 #### [facility] CLIA [id number] [address] [place] [address] [place] Glucose [Mass/Vol] 76 mg/dL Normal 70-100 [facility] Comment on above: Order Comment: Barney laguna Type: BLOOD SPECIMEN Ordering Facility: [facility] Address: [address] [place] [address] Result Comment: The [place] Diabetes Association (ADA) provides guidance for cutoff values for fasting glucose and random glucose. The ADA defines fasting as no caloric intake for at least 8 hours. Fasting plasma glucose results between 100 to 125 mg/dL indicate increased risk for diabetes (prediabetes). Fasting plasma glucose results greater than or equal to 126 mg/dL meet the criteria for diagnosis of diabetes. In the absence of unequivocal hyperglycemia, results should be confirmed by repeat testing. In a patient with classic symptoms of hyperglycemia or hyperglycemic crisis, random plasma glucose results greater than or equal to 200 mg/dL meet the criteria for diagnosis of diabetes. Reference: Standards of Medical Care in Diabetes 2016, [place] Diabetes Association. Diabetes Care. 2016.39(Suppl 1). Results may be falsely elevated after the administration of Sulfapyridine. Results may be falsely depressed after the administration of Sulfasalazine. Performed By: #### 2 4321-2 #### [facility] CLIA [id number] [address] [place] [address] [place] Potassium [Moles/Vol] 3.8 mmol/L Normal 3.5-5.1 [facility] Comment on above: Order Comment: Barney laguna Type: BLOOD SPECIMEN Ordering Facility: [facility] Address: [address] [place] [address] Performed By: #### 2 4321-2 #### [facility] CLIA [id number] [address] [place] [address] [place] Sodium [Moles/Vol] 138 mmol/L Normal 136-145 [facility] Comment on above: Order Comment: Barney laguna Type: BLOOD SPECIMEN Ordering Facility: [facility] Address: [address] [place] [address] Performed By: #### 2 4321-2 #### [facility] CLIA [id number] [address] [place] [address] [place] Urea nitrogen [Mass/Vol] 14 mg/dL Normal 7-26 [facility] Comment on above: Order Comment: Tristeni jase Type: BLOOD SPECIMEN Ordering Facility: [facility] Address: [address] [place] [address] Performed By: #### 2 4321-2 #### [facility] CLIA [id number] [address] [place] [address] STATES [place] [facility] CBC W Auto Differential pane l (Bld)on 11-26-2023 Basophils (Bld) [#/Vol] 0.04 10*3/uL Normal <0.11 [facility] Comment on above: Order Comment: Speci men Type: BLOOD SPECIMEN Ordering Facility: [facility] Address: [address] [place] [address] Performed By: #### 5 7021-8 #### [facility] CLIA [id number] [address] [place] [address] [place] Basophils/100 WBC (Bld) 0.2 % Normal [facility] Comment on above: Order Comment: Speci men Type: BLOOD SPECIMEN Ordering Facility: [facility] Address: [address] [place] [address] Performed By: #### 5 7021-8 #### [facility] CLIA [id number] [address] [place] [address] [place] Differential cell count method Nom (Bld) Auto Normal [facility] Comment on above: Order Comment: Speci men Type: BLOOD SPECIMEN Ordering Facility: [facility] Address: [address] [place] [address] Performed By: #### 5 7021-8 #### [facility] CLIA [id number] [address] [place] [address] [place] Eosinophils (Bld) [#/Vol] 10*3/uL Normal <0.46 [facility] Comment on above: Order Comment: Speci men Type: BLOOD SPECIMEN Ordering Facility: [facility] Address: [address] [place] [address] Performed By: #### 5 7021-8 #### [facility] CLIA [id number] [address] [place] [address] [place] Eosinophils/100 WBC (Bld) 0.1 % Normal [facility] Comment on above: Order Comment: Speci men Type: BLOOD SPECIMEN Ordering Facility: [facility] Address: [address] [place] [address] Performed By: #### 5 7021-8 #### [facility] CLIA [id number] [address] [place] [address] [place] Erythrocyte distribution width (RBC) [Ratio] 15.9 % High 11.5-15.0 [facility] Comment on above: Order Comment: Speci men Type: BLOOD SPECIMEN Ordering Facility: [facility] Address: [address] [place] [address] Performed By: #### 5 7021-8 #### [facility] CLIA [id number] [address] [place] [address] [place] Hematocrit (Bld) [Volume fraction] 40.7 % Normal 39.0-51.0 [facility] Comment on above: Order Comment: Speci men Type: BLOOD SPECIMEN Ordering Facility: [facility] Address: [address] [place] [address] Performed By: #### 5 7021-8 #### [facility] CLIA [id number] [address] [place] [address] [place] Hemoglobin (Bld) [Mass/Vol] 12.1 g/dL Low 13.0-17.0 [facility] Comment on above: Order Comment: Speci men Type: BLOOD SPECIMEN Ordering Facility: [facility] Address: [address] [place] [address] Performed By: #### 5 7021-8 #### [facility] CLIA [id number] [address] [place] [address] [place] Immature granulocytes (Bld) [#/Vol] 0.10 10*3/uL High <0.10 [facility] Comment on above: Order Comment: Speci men Type: BLOOD SPECIMEN Ordering Facility: [facility] Address: [address] [place] [address] Performed By: #### 5 7021-8 #### [facility] CLIA [id number] [address] [place] [address] [place] Immature granulocytes/100 WBC (Bld) 0.6 % Normal [facility] Comment on above: Order Comment: Speci men Type: BLOOD SPECIMEN Ordering Facility: [facility] Address: [address] [place] [address] Performed By: #### 5 7021-8 #### [facility] CLIA [id number] [address] [place] [address] [place] Lymphocytes (Bld) [#/Vol] 1.16 10*3/uL Normal 1.00-4.00 [facility] Comment on above: Order Comment: Speci men Type: BLOOD SPECIMEN Ordering Facility: [facility] Address: [address] [place] [address] Performed By: #### 5 7021-8 #### [facility] CLIA [id number] [address] [place] [address] Lymphocytes/100 WBC (Bld) 7.0 % Normal [facility] Comment on above: Order Comment: Speci men Type: BLOOD SPECIMEN Ordering Facility: [facility] Address: [address] [place] [address] Performed By: #### 5 7021-8 #### [facility] CLIA [id number] [address] [place] [address] OF [facility] MCH (RBC) [Entitic mass] 24.2 pg Low 26.0-34.0 [facility] Comment on above: Order Comment: Speci men Type: BLOOD SPECIMEN Ordering Facility: [facility] Address: [address] [place] [address] Performed By: #### 5 7021-8 #### [facility] CLIA [id number] [address] [place] [address] [place] MCHC (RBC) [Mass/Vol] 29.7 g/dL Low 30.5-36.0 [facility] Comment on above: Order Comment: Speci men Type: BLOOD SPECIMEN Ordering Facility: [facility] Address: [address] [place] [address] Performed By: #### 5 7021-8 #### [facility] CLIA [id number] [address] [place] [address] [place] MCV (RBC) [Entitic vol] 81.6 fL Normal 80.0-100.0 [facility] Comment on above: Order Comment: Speci men Type: BLOOD SPECIMEN Ordering Facility: [facility] Address: [address] [place] [address] Performed By: #### 5 7021-8 #### [facility] CLIA [id number] [address] [place] [address] [place] Monocytes (Bld) [#/Vol] 0.74 10*3/uL Normal <0.87 [facility] Comment on above: Order Comment: Speci men Type: BLOOD SPECIMEN Ordering Facility: [facility] Address: [address] [place] [address] Performed By: #### 5 7021-8 #### [facility] CLIA [id number] [address] [place] [address] [place] Monocytes/100 WBC (Bld) 4.5 % Normal [facility] Comment on above: Order Comment: Speci men Type: BLOOD SPECIMEN Ordering Facility: [facility] Address: [address] [place] [address] Performed By: #### 5 7021-8 #### [facility] CLIA [id number] [address] [place] [address] [place] Neutrophils (Bld) [#/Vol] 14.45 10*3/uL High 1.45-7.50 [facility] Comment on above: Order Comment: Speci men Type: BLOOD SPECIMEN Ordering Facility: [facility] Address: [address] [place] [address] Performed By: #### 5 7021-8 #### [facility] CLIA [id number] [address] [place] [address] [place] Neutrophils/100 WBC (Bld) 87.6 % Normal [facility] Comment on above: Order Comment: Speci men Type: BLOOD SPECIMEN Ordering Facility: [facility] Address: [address] [place] [address] Performed By: #### 5 7021-8 #### [facility] CLIA [id number] [address] [place] [address] [place] Nucleated RBC (Bld) [#/Vol] 10*3/uL Normal <0.01 [facility] Comment on above: Order Comment: Speci men Type: BLOOD SPECIMEN Ordering Facility: [facility] Address: [address] [place] [address] Performed By: #### 5 7021-8 #### [facility] CLIA [id number] [address] [place] [address] [place] Nucleated RBC/100 WBC (Bld) [Ratio] 0.0 /100 WBC Normal [facility] Comment on above: Order Comment: Speci men Type: BLOOD SPECIMEN Ordering Facility: [facility] Address: [address] [place] [address] Performed By: #### 5 7021-8 #### [facility] CLIA [id number] [address] [place] [address] [place] Platelet mean volume (Bld) [Entitic vol] 11.9 fL Normal 9.0-12.7 [facility] Comment on above: Order Comment: Speci men Type: BLOOD SPECIMEN Ordering Facility: [facility] Address: [address] [place] [address] Performed By: #### 5 7021-8 #### [facility] CLIA [id number] [address] [place] [address] [place] Platelets (Bld) [#/Vol] 196 10*3/uL Normal 150-400 [facility] Comment on above: Order Comment: Speci men Type: BLOOD SPECIMEN Ordering Facility: [facility] Address: [address] [place] [address] Performed By: #### 5 7021-8 #### [facility] CLIA [id number] [address] [place] [address] [place] RBC (Bld) [#/Vol] 4.99 10*6/uL Normal 4.20-6.00 [facility] Comment on above: Order Comment: Speci men Type: BLOOD SPECIMEN Ordering Facility: [facility] Address: [address] [place] [address] Performed By: #### 5 7021-8 #### [facility] CLIA [id number] [address] [place], [place] [id number] [place] WBC (Bld) [#/Vol] 16.50 10*3/uL High 3.70-11.00 [facility] Comment on above: Order Comment: Speci men Type: BLOOD SPECIMEN Ordering Facility: [facility] Address: [address] [place] [address] Performed By: #### 5 7021-8 #### [facility] CLIA [id number] [address] [place], [place] [id number] [facility] CBC W/Diff, Automatedon 02-2 Absolute Lymph 4.84 X10 3/uL High 0.83-4.51 [facility] Comment on above: Performed By: #### M 100.678, M100.2200, L400.0001 #### [facility] [address] [place], [address] Absolute Neut 7.0 X10 3/uL Normal 2.0-7.7 [facility] Comment on above: Performed By: #### M 100.678, M100.2200, L400.0001 #### [facility] [address] [place], [address] Basophils/100 WBC (Bld) 0.4 % Normal 0-1 [facility] Comment on above: Performed By: #### M 100.678, M100.2200, L400.0001 #### [facility] [address] [place], [address] Eosinophils/100 WBC (Bld) 0.8 % Normal 0-5 [facility] Comment on above: Performed By: #### M 100.678, M100.2200, L400.0001 #### [facility] [address] [place], [address] Erythrocyte distribution width (RBC) [Ratio] 17.5 % High 11.6-14.6 [facility] Comment on above: Performed By: #### M 100.678, M100.2200, L400.0001 #### [facility] [address] [place], [address] Hematocrit (Bld) [Volume fraction] 39.9 % Low 40-54 [facility] Comment on above: Performed By: #### M 100.678, M100.2200, L400.0001 #### [facility] [address] [place], [address] Hemoglobin (Bld) [Mass/Vol] 11.6 g/dL Low 13.0-16.5 [facility] Comment on above: Performed By: #### M 100.678, M100.2200, L400.0001 #### [facility] [address] [place], [address] IG% 0.400 Normal 0.0-0.9 [facility] Comment on above: Result Comment: IG% - Immature Granulocytes (promyelocytes, myelocytes and metamyelocytes) > 1% indicates that a LEFT SHIFT is Present. Performed By: #### M 100.678, M100.2200, L400.0001 #### [facility] [address] [place], [address] Lymphocytes/100 WBC (Bld) 38.4 % Normal 19-41 [facility] Comment on above: Performed By: #### M 100.678, M100.2200, L400.0001 #### [facility] [address] [place], [address] MCH (RBC) [Entitic mass] 24.1 pg Low 27.0-32.0 [facility] Comment on above: Performed By: #### M 100.678, M100.2200, L400.0001 #### [facility] [address] [place], [address] MCHC (RBC) [Mass/Vol] 29.1 g/dL Low 32-36 [facility] Comment on above: Performed By: #### M 100.678, M100.2200, L400.0001 #### [facility] [address] [place], [address] MCV (RBC) [Entitic vol] 83.0 fL Normal 80-94 [facility] Comment on above: Performed By: #### M 100.678, M100.2200, L400.0001 #### [facility] [address] [place], [address] Monocytes/100 WBC (Bld) 4.8 % Normal 0-10 [facility] Comment on above: Performed By: #### M 100.678, M100.2200, L400.0001 #### [facility] [address] [place], [address] Neutrophils/100 WBC (Bld) 55.2 % Normal 47-70 [facility] Comment on above: Performed By: #### M 100.678, M100.2200, L400.0001 #### [facility] [address] [place], [address] Nucleated RBC (Bld) [#/Vol] 0 10*3/uL Normal 0-5 [facility] Comment on above: Performed By: #### M 100.678, M100.2200, L400.0001 #### [facility] [address] [place], [address] Platelet mean volume (Bld) [Entitic vol] 10.8 fL Normal 6.2-12.0 [facility] Comment on above: Performed By: #### M 100.678, M100.2200, L400.0001 #### [facility] [address] [place], [address] Platelets (Bld) [#/Vol] 250 10*3/uL Normal 150-450 [facility] Comment on above: Performed By: #### M 100.678, M100.2200, L400.0001 #### [facility] [address] [place], [address] RBC (Bld) [#/Vol] 4.81 10*6/uL Normal 4.6-6.2 [facility] Comment on above: Performed By: #### M 100.678, M100.2200, L400.0001 #### [facility] [address] [place], [address] RDW SD 52.0 fl High 35.1-43.9 [facility] Comment on above: Performed By: #### M 100.678, M100.2200, L400.0001 #### [facility] [address] [place], [address] WBC (Bld) [#/Vol] 12.6 10*3/uL High 4.4-11.0 [facility] Comment on above: Performed By: #### M 100.678, M100.2200, L400.0001 #### [facility] [address] [place], [address] Comprehensive Metabolic Prof [facility] 08-29-2023 Albumin [Mass/Vol] 3.2 g/dL Normal 3.2-5.0 [facility] Comment on above: Performed By: #### M 100.678, M100.2200, L400.0001 #### [facility] [address] [place], [address] Albumin/Globulin [Mass ratio] 0.9 {ratio} Normal 0.9-2.4 [facility] Comment on above: Performed By: #### M 100.678, M100.2200, L400.0001 #### [facility] [address] [place], [address] ALK P 98 U/L Normal 45-117 [facility] Comment on above: Performed By: #### M 100.678, M100.2200, L400.0001 #### [facility] [address] [place], [address] ALT [Catalytic activity/Vol] 15 U/L Low 16-61 [facility] Comment on above: Performed By: #### M 100.678, M100.2200, L400.0001 #### [facility] [address] [place], [address] AST [Catalytic activity/Vol] 11 U/L Low 15-37 [facility] Comment on above: Performed By: #### M 100.678, M100.2200, L400.0001 #### [facility] [address] [place], [address] Bilirubin [Mass/Vol] 0.50 mg/dL Normal 0.20-1.00 [facility] Comment on above: Result Comment: For patients on eltrombopag therapy, use of Dimension Foley TBIL is not recommended. Performed By: #### M 100.678, M100.2200, L400.0001 #### [facility] [address] [place], [address] BUN/CRE 10.6 RATIO Normal 10-20 [facility] Comment on above: Performed By: #### M 100.678, M100.2200, L400.0001 #### [facility] [address] [place], [address] CA,Total 8.9 mg/dL Normal 8.5-10.1 [facility] Comment on above: Performed By: #### M 100.678, M100.2200, L400.0001 #### [facility] [address] [place], [address] Chloride [Moles/Vol] 110 mmol/L High 98-107 [facility] Comment on above: Performed By: #### M 100.678, M100.2200, L400.0001 #### [facility] [address] [place], [address] CO2 [Moles/Vol] 26.0 mmol/L Normal 21.0-32.0 [facility] Comment on above: Performed By: #### M 100.678, M100.2200, L400.0001 #### [facility] [address] [place], [address] Creatinine [Mass/Vol] 1.04 mg/dL Normal 0.70-1.30 [facility] Comment on above: Result Comment: The validity of the calculated GFR GFRAA in patients over 70 years has not been determined. Clinical correlation is essential. Performed By: #### M 100.678, M100.2200, L400.0001 #### [facility] [address] [place], [address] ECRCL 86.94 ml/min Normal [facility] Comment on above: Performed By: #### M 100.678, M100.2200, L400.0001 #### [facility] [address] [place], [address] EST GFR - AA 92 mL/min Normal >60 [facility] Comment on above: Result Comment: Afri can Libyan GFR Calc Performed By: #### M 100.678, M100.2200, L400.0001 #### [facility] [address] [place], [address] GAP 4 Low 5-15 [facility] Comment on above: Performed By: #### M 100.678, M100.2200, L400.0001 #### [facility] [address] [place], [address] GFR/1.73 sq M.predicted among non-blacks MDRD (S/P/Bld) [Vol rate/Area] 76 mL/min/{1.73_m2} Normal >60 [facility] Comment on above: Result Comment: Non- GFR Calc Performed By: #### M 100.678, M100.2200, L400.0001 #### [facility] [address] [place], [address] Globulin (S) [Mass/Vol] 3.7 g/dL Normal 2.2-4.2 [facility] Comment on above: Performed By: #### M 100.678, M100.2200, L400.0001 #### [facility] [address] [place], [address] Glucose [Mass/Vol] 119 mg/dL High 74-106 [facility] Comment on above: Result Comment: Fast ing Glucose result from 100 to 125 mg/dL suggests IMPAIRED HOMEOSTASIS per A.D.A. criteria. Performed By: #### M 100.678, M100.2200, L400.0001 #### [facility] [address] [place], [address] Potassium [Moles/Vol] 3.6 mmol/L Normal 3.5-5.1 [facility] Comment on above: Performed By: #### M 100.678, M100.2200, L400.0001 #### [facility] [address] [place], [address] Sodium [Moles/Vol] 140 mmol/L Normal 136-145 [facility] Comment on above: Performed By: #### M 100.678, M100.2200, L400.0001 #### [facility] [address] [place], [address] T PROT 6.9 g/dL Normal 6.4-8.2 [facility] Comment on above: Performed By: #### M 100.678, M100.2200, L400.0001 #### [facility] [address] [place], [address] Urea nitrogen [Mass/Vol] 11 mg/dL Normal 7-18 [facility] Comment on above: Performed By: #### M 100.678, M100.2200, L400.0001 #### [facility] [address] [place], [address] Ferritinon 08-29-2023 Ferritin [Mass/Vol] 53 ng/mL Normal 26-388 [facility] Comment on above: Performed By: #### M 100.678, M100.2200, L400.0001 #### [facility] [address] [place], [address] Iron+Iron Binding Capacityon 08-29-2023 Iron [Mass/Vol] 38 ug/dL Low 65-175 [facility] Comment on above: Performed By: #### M 100.678, M100.2200, L400.0001 #### [facility] [address] [place], [address] IRON SATURATION 12.5 Low 15.0-55.0 [facility] Comment on above: Performed By: #### M 100.678, M100.2200, L400.0001 #### [facility] [address] [place], [address] TIBC 304 ug/dL Normal 250-450 [facility] Comment on above: Performed By: #### M 100.678, M100.2200, L400.0001 #### [facility] [address] [place], [address] Oncology Visit Reporton 08-03 Oncology Visit Report [facility] [address] [place] [address] OFFICE VISIT Date of Service: 08/29/23 1456 MR#: [id number] Acct: [id number] Name: MARYCRUZ VARGAS Rep #: [id number] : 1960 From: Christopher Mccabe MD Age/Sex: 63/M Location: [facility] Status: Signed HPI Subjective Date of Service 08/29/23 Chief Complaint CLL on treatment History of Present Illness 62-year-old male who was hospitalized at [facility] March 15-2020 with severe anemia with a hemoglobin of 3 g per DL and heart failure. 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 He was noted to have a markedly elevated mature lymphocyte count, normal platelet count , absolute neutrophil count. 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 March 16, 2021 peripheral blood FISH: 96% of nucleated cells were positive for 13 q. deletion, isolated abnormality. He was transfused with a total of 4 units of packed red blood cells and started on prednisone 1 mg/kg (100 mg) daily. He was seen 1 week following discharge with recurrence of hemolytic anemia despite being on steroids (though compliance was questioned) and was readmitted to the hospital March 30, through April 04 2021 where he was continued under supervision with prednisone and 4 days of IVIG were given and transfused with packed red blood cells again. Patient himself is a poor historian, appears to seek medical help only when very ill. Records from [facility] the most recent of which was in 2018 indicated that he was under treatment for chronic hidradenitis suppurativa (for which he was treated with repeated courses of antibiotics, steroids, and Humira), chronic iron deficiency anemia, anemia of chronic disease (for which he received oral and IV iron). He was last seen in November 2018. At that time he was evaluated for possible hepatitis due to B virus by hepatology and it was eventually concluded that no active chronic viral hepatitis was present. Repeat evaluation in March 2021 showed no evidence of chronic virus hepatitis B or C. Treatment: * March 2021 high-dose steroids. * April 14-June 02, 2021 Rituxan (8 weeks) HI then rapidly relapsing; Hemolysis significantly improved in addition to a partial response in CLL. * Ibrutinib August 02, 2021 interruptions January 2022 through July 2022 due to intercurrent acute illnesses with admissions to hospitals and SNF for rehab and finally to a long-term alf facility in [facility]. 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 Bilateral lower extremity edema Chronic lymphocytic leukemia CLL (chronic lymphocytic leukemia) DVT of leg (deep venous thrombosis) Edema, lower extremity Encounter for education History of hepatitis B Iron deficiency anemia due to chronic blood loss Surgical History H/O foot surgery History of tonsillectomy Family History Father Diabetes Mother Hypertension Social History household members: none Smoking Status: Light Smoker (<10/day) second hand exposure: No alcohol intake: current alcohol intake frequency: holidays/special occasions only details: occasionally diet: low salt estelle/baptist: Sabianism seatbelt use: always do you feel safe at home: Yes YARITZA YARITZA Galarza Living at [facility], happy with care there Constitutional Constitutional: Denies anorexia, chills, fatigue, fever(s), night sweats or weight loss Eyes Eyes: Reports systems reviewed and no addt'l complaints, except as documented ENT HEENT: Reports systems reviewed and no addt'l complaints, except as documented; Denies bleeding gums, epistaxis or mouth lesions Cardiovascular Cardiovascular: Denies chest pain, dyspnea or leg edema Respiratory/Chest Respiratory/Chest: Denies chest tightness, cough, dyspnea or hemoptysis Gastrointestinal Gastrointestinal: Denies abdominal pain, dyspepsia, hematochezia or melena Genitourinary Genitourinary: Denies change in urinary stream or hematuria Musculoskeletal Musculoskeletal: Denies arthralgias or back pain Integumentary Integumentary: Reports bleeding lesions, non-healing lesions, wounds and other Details: Chronic ulcerated lesions in the buttocks and perineum with minimal bleeding since anticoagulation was permanently discontinued. Needs courses of antibiotics here and therefore flareup of infections. ; Denies new lesions or unusual bruising Neurologic N (more content not included)... Normal [facility] RED BLOOD CELLS, ADULTon ABO and Rh group Nom (Bld) Blood group A Rh(D) negative [facility] ABO and Rh group Nom (Bld) 600 [facility] Expiration Date [id number] [facility] Product Code [id number] [facility] Product Expiration Date 10/20/2022 23:59 [facility] Product Identification Red Blood Cells [facility] Status Information Released [facility] Unit Number [id number] [facility] ABO and Rh group panel (Bld) on 10-10-2022 ABO A [facility] Rh Nom (Bld) Positive [facility] Direct antiglobulin test.carol y specific reagent Ql (RBC)on 10-10-2022 DAGT, Anti-C3b,C3d Positive [facility] DAGT, Anti-IgG Positive [facility] DAGT, Polyspecific [facility]HG Positive [facility] Type and Screen Expiration 10/13/2022 23:59 [facility] No Panel Informationon 10-10 Additional Specimens Received in lab [facility] TYPE + SCREENon 10-10-2022 HIstorical Ab Scr Status Positive Abnormal [facility] Type and Screen Expiration 10/13/2022 23:59 [facility] ABO and Rh group panel (Bld) on 07-07-2022 ABO A [facility] Rh Nom (Bld) Positive [facility] ANTIBODY ID PATIENTon 2022 Antibody Identified Anti-E Anti-K [facility] ANTIBODY WORKUP(2)on 023 Additional Specimens Received in lab [facility] Direct antiglobulin test.carol y specific reagent Ql (RBC)on 07-07-2022 DAGT, Anti-C3b,C3d Positive [facility] DAGT, Anti-IgG Negative [facility] DAGT, Polyspecific [facility]HG [facility] Type and Screen Expiration 07/10/2022 23:59 [facility] TYPE + SCREENon 07-07-2022 HIstorical Ab Scr Status Negative [facility] Type and Screen Expiration 07/10/2022 23:59 [facility] ABO and Rh group panel (Bld) on 06-22-2022 ABO A [facility] Rh Nom (Bld) Positive [facility] TYPE + SCREENon 06-22-2022 HIstorical Ab Scr Status Negative [facility] Type and Screen Expiration 06/25/2022 23:59 [facility] Absolute lymphocyte counton 01-18-2022 Lymphocytes Auto (Unsp spec) [#/Vol] 2.44 10*3/uL 0.83-4.51 [facility] Work Phone: Basophil percentageon 2021 Basophils/100 WBC (Bld) 0.2 % 0-1 [facility] Work Phone: Bilirubin [Mass/Vol] 0.40 mg/dL 0.20-1.00 [facility] Work Phone: Comment on above: For patients on eltr ombopag therapy, use of Dimension Foley TBIL is not recommended. Chloride [Moles/Vol] 97 mmol/L 98-107 [facility] Work Phone: Eosinophils/100 WBC (Bld) 0.0 % 0-5 [facility] Work Phone: Glucose [Mass/Vol] 128 mg/dL 74-106 [facility] Work Phone: Comment on above: Fasting Glucose resu lt greater than or equal to 126 mg/dL suggests DIABETES MELLITUS per A.D.A. criteria. Neutrophils (Bld) [#/Vol] 13.3 10*3/uL 2.0-7.7 [facility] Work Phone: Neutrophils/100 WBC (Bld) 79.6 % 47-70 [facility] Work Phone: Potassium [Moles/Vol] 4.0 mmol/L 3.5-5.1 [facility] Work Phone: Protein [Mass/Vol] 6.9 g/dL 6.4-8.2 [facility] Work Phone: Sodium [Moles/Vol] 131 mmol/L 136-145 [facility] Work Phone: WBC (Bld) [#/Vol] 16.7 10*3/uL 4.4-11.0 [facility] Work Phone: Blood erythrocytes count (nu mber/volume)on 01-18-2022 RBC (Bld) [#/Vol] 3.37 10*6/uL 4.6-6.2 [facility] Work Phone: Blood hemoglobin measurement (mass/volume)on 01-18-2022 Hemoglobin (Bld) [Mass/Vol] 7.1 g/dL 13.0-16.5 [facility] Work Phone: Blood lymphocytes/100 leukoc yteson 01-18-2022 Lymphocytes/100 WBC (Bld) 14.6 % 19-41 [facility] Work Phone: Blood manual differential co mment interpretation (narrative result)on 01-18-2022 Manual differential comment Kai (Bld) [Interp] SCANNED [facility] Work Phone: Blood monocytes/100 leukocyt eson 01-18-2022 Monocytes/100 WBC (Bld) 4.1 % 0-10 [facility] Work Phone: Blood platelet mean volumeon 01-18-2022 Platelet mean volume (Bld) [Entitic vol] 9.1 fL 6.2-12.0 [facility] Work Phone: Determination of erythrocyte mean corpuscular volume (MCV)on 01-18-2022 MCV (RBC) [Entitic vol] 74.8 fL 80-94 [facility] Work Phone: Hematocrit Auto (Bld) [Volum e fraction]on 01-18-2022 Hematocrit (Bld) [Volume fraction] 25.2 % 40-54 [facility] Work Phone: Hemoglobin in reticulocytes (mass per reticulocyte)on 01-18-2022 Hemoglobin (Reticulocytes) [Entitic mass] 15.5 pg 30-35 [facility] Work Phone: Hypochromatic red blood cell detectionon 01-18-2022 Hypochromia Ql (Bld) 1+ [facility] Work Phone: Iron measurement (mass/mass) on 01-18-2022 Iron (Unsp spec) [Mass/Mass] 13 ug/dL 65-175 [facility] Work Phone: Laboratory - Chemistry and C hemistry - challengeon 01-18-2022 ALP [Catalytic activity/Vol] 83 U/L 45-117 [facility] Work Phone: ALT [Catalytic activity/Vol] U/L 16-61 [facility] Work Phone: [phone] CO2 [Moles/Vol] 24.0 mmol/L 21.0-32.0 [facility] Work Phone: Globulin (S) [Mass/Vol] 4.5 g/dL 2.2-4.2 [facility] Work Phone: Urea nitrogen/Creatinine [Mass ratio] 7.5 mg/mg 10-20 [facility] Work Phone: Laboratory - Hematology and Cell countson 01-18-2022 Anisocytosis Ql (Bld) 3+ [facility] Work Phone: Erythrocyte distribution width (RBC) [Entitic vol] 54.6 fL 35.1-43.9 [facility] Work Phone: Erythrocyte distribution width (RBC) [Ratio] 20.2 % 11.6-14.6 [facility] Work Phone: Immature granulocytes/100 WBC (Bld) 1.500 % 0.0-0.9 [facility] Work Phone: Comment on above: IG% - Immature Granu locytes (promyelocytes, myelocytes and metamyelocytes) > 1% indicates that a LEFT SHIFT is Present. MCH (RBC) [Entitic mass] 21.1 pg 27.0-32.0 [facility] Work Phone: Nucleated RBC/100 WBC (Bld) [Ratio] 0.1 % 0-5 [facility] Work Phone: MCHC Auto (RBC) [Mass/Vol]on 01-18-2022 MCHC (RBC) [Mass/Vol] 28.2 g/dL 32-36 [facility] Work Phone: Macrocytes detectionon 01-18 [facility] Ql (Bld) 1+ [facility]: No Panel Informationon 01-18 Estimated Creatinine Clearance Calc 116.03 ml/min [facility] Work Phone: Estimated GFR (MDRD) Amer 125 mL/min >60 [facility] Work Phone: Comment on above: GFR Calc Estimated GFR (MDRD) Non-Af Amer 103 mL/min >60 [facility] Work Phone: Comment on above: Non- GFR Calc Immature Platelet Fraction 2.9 % 1.0-7.9 [facility] Work Phone: Comment on above: Low PLT + Low IPF alcaraz ggest a bone marrow production disorderLow PLT + high IPF suggests peripheral destruction(e.g.ITP, TTP, HIT, DIC, autoimmune) or bone marrow recoveryTrending of serial IPF measurements is recommended when evaluating for bone marrow responesValue above normal range indicates an increase in RBC cellular response from bone marrow. Immature Reticulocyte Fraction 31.40 % 3.00-15.90 [facility] Work Phone: Reticulocyte Count 2.45 % 0.5-1.5 [facility] Work Phone: [phone] Total Iron Binding Capacity 273 ug/dL 250-450 [facility] Work Phone: Platelets bldon 01-18-2022 Platelets (Bld) [#/Vol] 279 10*3/uL 150-450 [facility] Work Phone: Serum or plasma albumin martha urement (mass/volume)on 01-18-2022 Albumin [Mass/Vol] 2.4 g/dL 3.2-5.0 [facility] Work Phone: Serum or plasma albumin/glob ulin mass ratioon 01-18-2022 Albumin/Globulin [Mass ratio] 0.5 {ratio} 0.9-2.4 [facility] Work Phone: Serum or plasma calcium martha urement (mass/volume)on 01-18-2022 Calcium [Mass/Vol] 8.4 mg/dL 8.5-10.1 [facility] Work Phone: [phone] Serum or plasma creatinine m easurement (mass/volume)on 01-18-2022 Creatinine [Mass/Vol] 0.80 mg/dL 0.70-1.30 [facility] Work Phone: Comment on above: The validity of the calculated GFR & GFRAA in patients over 70 years has not been determined. Clinical correlation is essential. Serum or plasma ferritin benitez surement (mass/volume)on 01-18-2022 Ferritin [Mass/Vol] 173 ng/mL 26-388 [facility] Work Phone: Serum or plasma iron saturat ion measurement (mass fraction)on 01-18-2022 Iron saturation [Mass fraction] 4.8 % 15.0-55.0 [facility] Work Phone: Serum or plasma urea nitroge n measurement (mass/volume)on 01-18-2022 Urea nitrogen [Mass/Vol] 6 mg/dL 7-18 [facility] Work Phone: Thin prep Papanicolaou smear with manual screeningon 01-18-2022 Thin prep Papanicolaou smear with manual screening 2+ [facility] Work Phone: Thin prep Papanicolaou smear with manual screening 6 U/L 15-37 [facility] Work Phone: Thin prep Papanicolaou smear with manual screening 10 5-15 [facility] Work Phone: [phone] Thin prep Papanicolaou smear with manual screening 184 U/L 87-241 [facility] Work Phone: Blood platelet adequacy dete ction by light microscopyon 12-26-2021 Platelets LM Ql (Bld) ADEQUATE ADEQ [facility] Work Phone: Blood poikilocytosis detecti on by light microscopyon 12-26-2021 Poikilocytosis LM Ql (Bld) 1+ [facility] Work Phone: Blood polychromasia detectio n by light microscopyon 12-26-2021 Polychromasia LM Ql (Bld) 1+ [facility] Work Phone: Ovalocyte detectionon 2021 Ovalocytes LM Ql (Bld) 1+ [facility] Work Phone: Review by pathologiston 12-01 Pathologist review Kai (Unsp spec) [Interp] May foll [facility] Work Phone: DISCH.SUMon 12-07-2021 DISCH.SUM Normal [facility] OTPNon 12-07-2021 OT Progress Note Normal [facility] OTPN Normal [facility] PTPNon 12-07-2021 PT Progress Note Normal [facility] PTPN Normal [facility] OTPNon 12-06-2021 OT Progress Note Normal [facility] OTPN Normal [facility] PROG IMSon 12-06-2021 PROG IMS Normal [facility] Progress Note-Hospitalist Normal [facility] PROG.ONCon 12-06-2021 PROG.ONC Normal [facility] Progress Note-Hem&Onc Normal [facility] ONQOUXNYYV87qt 12-06-2021 SARS-CoV-2 (COVID-19) RNA TIBURCIO+probe Ql (Unsp spec) Negative Invalid Interpretation Code Negative [facility] Comment on above: Order Comment: Alan peres: Rosemary Result Comment: SERAF[facility] L[facility] CALLED TO AND READ BACK BY ROSA UA/5BAT [id number] 12/06/21 BY ARMIDA SANCHEZNegative results do not preclude SARS-CoV-2 infection andshould not be used as the sole basis for treatment or otherpatient management decisions. Negative results must becombined with clinical observation, patient history, andepidemiological information.This test was performed by PCR. Performed By: #### L 770.19551 ####[facility] [id number] [place], [place] [address]Lf# [phone] CBC W/DIFFon 12-05-2021 ANISO 3+ Normal [facility] Comment on above: Order Comment: Campu s: M Performed By: #### L 200.41086, L200.81141 ####[facility] RDTBMWCYKU0682 [place], [place] [address]Sn# [phone] BAND ABS 0.22 K/CU MM Normal [facility] Comment on above: Order Comment: Campu s: M Performed By: #### L 200.13027, L200.57484 ####[place] [address]Ph# [phone] Band form neutrophils/100 WBC (Bld) 1.0 % Normal 0-7 [facility] Comment on above: Order Comment: Campu s: M Performed By: #### L 200.16770, L200.74931 ####[place] [address]Ph# [phone] EOS ABS 0.22 K/CU MM Normal 0-0.5 [facility] Comment on above: Order Comment: Campu s: M Performed By: #### L 200.01696, L200.74967 ####[address] [address]Kc# [phone] Eosinophils/100 WBC (Bld) 1.0 % Normal 0-5 [facility] Comment on above: Order Comment: Campu s: M Performed By: #### L 200.93562, L200.89167 ####[place] [address]Ph# [phone] HYPO 3+ Normal [facility] Comment on above: Order Comment: Campu s: M Performed By: #### L 200.18045, L200.55965 ####[facility] [id number] [place] [address]Oj# [phone] LYMPH ABS 9.59 K/CU MM High 0.9-4.4 [facility] Comment on above: Order Comment: Campu s: M Performed By: #### L 200.08029, L200.61435 ####[facility] [id number] [place], [place] [address]Yr# [phone] Lymphocytes/100 WBC (Bld) 43.0 % High 20-40 [facility] Comment on above: Order Comment: Campu s: M Performed By: #### L 200.55815, L200.74673 ####[facility] [id number] [place], [place] [address]Ph# [phone] META % 1.0 % Normal [facility] Comment on above: Order Comment: Campu s: M Performed By: #### L 200.83979, L200.92895 ####[address] [address]Br# [phone] META ABS 0.22 K/CU MM Normal [facility] Comment on above: Order Comment: Campu s: M Performed By: #### L 200.08307, L200.13944 ####[address] [address]Mp# [phone] MONO ABS 0.67 K/CU MM Normal 0.1-1.1 [facility]: Order Comment: Campu s: M Performed By: #### L 200.15317, L200.32736 ####[place] [address]Ph# [phone] Monocytes/100 WBC (Bld) 3.0 % Normal 2-10 [facility] Comment on above: Order Comment: Campu s: M Performed By: #### L 200.93739, L200.85109 ####[facility] TCURZEUTOK[address] [place], [place] [address]Ph# [phone] NEUTROPHIL ABS 11.37 K/CU MM High 2.0-8.3 [facility] Comment on above: Order Comment: Campu s: M Performed By: #### L 200.08118, L200.47291 ####[facility] [id number] [place], [place] [address]Nn# [phone] Neutrophils/100 WBC (Bld) 51.0 % Normal 45-75 [facility] Comment on above: Order Comment: Campu s: M Performed By: #### L 200.66782, L200.46717 ####[facility] [id number] [place], [place] [address]Sc# [phone] PLT EST ADEQUATE Normal [facility] Comment on above: Order Comment: Campu s: M Performed By: #### L 200.00393, L200.28088 ####[facility] NGBGOQPRAY6828 [place], [place] [address]Kg# [phone] PLT MORPH LARGE FORMS NOTED Normal [facility] Comment on above: Order Comment: Campu s: M Performed By: #### L 200.73717, L200.64965 ####[address] [address]Xt# [phone] POIK 1+ Normal [facility] Comment on above: Order Comment: Campu s: M Performed By: #### L 200.06646, L200.19951 ####[facility] IDLOQVRRIN2884 [place], [place] [address]St# [phone] Erythrocyte distribution width (RBC) [Ratio] 24.2 % High 11-14.5 [facility] Comment on above: Order Comment: Campu s: M Performed By: #### L 200.82881, L200.25222 ####[facility] KWUDOKGTYK1128 [place], [place] [address]Cx# [phone] Hematocrit (Bld) [Volume fraction] 31.9 % Low 41.0-53.0 [facility] Comment on above: Order Comment: Campu s: M Performed By: #### L 200.20362, L200.81603 ####[facility] LTPZYEVBKU4514 [place], [place] [address]Xy# [phone] Hemoglobin (Bld) [Mass/Vol] 9.2 g/dL Low 13.5-17.5 [facility] Comment on above: Order Comment: Campu s: M Performed By: #### L 200.30767, L200.56545 ####[facility] GAIFWRYTYE1514 [place], [place] [address]Na# [phone] MCHC (RBC) [Mass/Vol] 28.8 g/dL Low 32.0-36.0 [facility] Comment on above: Order Comment: Campu s: M Performed By: #### L 200.46024, L200.77570 ####[facility] [id number] [place] [address]Fh# [phone] MCV (RBC) [Entitic vol] 70.7 fL Low 80.0-99.0 [facility] Comment on above: Order Comment: Campu s: M Performed By: #### L 200.26897, L200.40987 ####[facility] [address] [place] [address]Os# [phone] Nucleated RBC/100 WBC (Bld) [Ratio] 0.0 % Normal Less than 1 [facility] Comment on above: Order Comment: Campu s: M Performed By: #### L 200.32239, L200.90499 ####[facility] [id number] [place] [address]Mg# [phone] Platelet mean volume (Bld) [Entitic vol] 8.8 fL Low 9.4-12.4 [facility] Comment on above: Order Comment: Campu s: M Performed By: #### L 200.11328, L200.78169 ####[facility] [id number] [place] [address]Nw# [phone] PLT 245 K/CU MM Normal 150-450 [facility] Comment on above: Order Comment: Campu s: M Performed By: #### L 200.51466, L200.21507 ####[facility] [address]DS[address]YLH[address] [place] [address]Od# [phone] RBC 4.51 M/CU MM Normal 4.50-6.00 [facility] Comment on above: Order Comment: Alan s: M Performed By: #### L 849.59696, L200.16849 ####[facility] MJAXEELKQE9615 [place], [place] [address]Ak# [phone] WBC 22.3 K/CUMM High 4.5-11.0 [facility] Comment on above: Order Comment: Campu s: M Performed By: #### L 209.12875, L200.57744 ####[facility] DLSBMEXDFA3485 [place], [place] [address]Bu# [phone] OTPNon 12-05-2021 OT Progress Note Normal [facility] OTPN Normal [facility] PROG IMSon 12-05-2021 PROG IMS Normal [facility] Progress Note-Hospitalist Normal [facility] PROG.Martha 12-05-2021 PROG.CARD Normal [facility] Progress Note-Cardiology Normal [facility] PROG.ONCon 12-05-2021 PROG.ONC Normal [facility] Progress Note-Hem&Onc Normal [facility] PTon 12-05-2021 INR Coag (PPP) [Relative time] 1.18 {INR} High 0.9-1.1 [facility] Comment on above: Order Comment: Alan s: M Result Comment: Vicente mmended PT INR therapeutic range for rodent exterminator andprophylactic therapy is 2.0 - 3.0. For heart valve andshunt patients the range is 2.5 - 3.5. Performed By: #### L 300.70330, L300.77266 ####[facility] [id number] [place], [place] [address]Nr# [phone] PTS 12.8 SECONDS High 9.5-12.0 [facility] Comment on above: Order Comment: Alan s: M Performed By: #### L 300.40080, L300.78984 ####[facility] KKZXCJBVUF3911 [place], [place] [address]Vn# [phone] PTPNon 12-05-2021 PT Progress Note Normal [facility] PTPN Normal [facility] PTTon 12-05-2021 aPTT Coag (Bld) [Time] 37.5 s High 22.0-31.5 [facility] Comment on above: Order Comment: Alan Riley Result Comment: Ther apeutic Heparin Reference Range: High Dose: 46-75 seconds (DVT/PE) Low Dose: 39-60 seconds (Acute Coronary Syndrome)For low molecular weight heparin or danaparoid, monitoringis often NOT necessary, but the heparin assay, Xa inhibitionassay (send-out) may be used in certain circumstances, asthe PTT is generally insensitive to the effect of theseagents. Direct thrombin inhibitors are becoming more widelyutilized and these drugs are often monitored using the PTT. Performed By: #### L 300.31647, L300.17616 ####[facility] REJYCXJTLX8901 [place], [place] [address]Cn# [phone] SMEAR REVIEWon 12-05-2021 SMEAR REVIEW TNP Normal [facility] Comment on above: Order Comment: Alan Riley Result Comment: CLL - REVIEWED 11/16/21 Performed By: #### L 200.70228, L200.45165 ####[facility] BLZFQHMGWL7026 [place], [place] [address]Qs# [phone] PROG IMSon 12-04-2021 PROG IMS Normal [facility] Progress Note-Hospitalist Normal [facility] BMPon 12-03-2021 Anion gap [Moles/Vol] 8 mmol/L Normal 5-16 [facility] Comment on above: Order Comment: Alan Riley Performed By: #### L 500.70460, L500.78167 ####[facility] MHYKWAPTME6386 [place], [place] [address]Dr# [phone] Calcium [Mass/Vol] 8.9 mg/dL Normal 8.5-10.5 [facility] Comment on above: Order Comment: Campu s: M Result Comment: NOTE NEW NORMAL RANGE DUE TO REAGENT CHANGE Performed By: #### L 500.07695, L500.75640 ####[facility] [id number] [place], [place] [address]Od# [phone] Chloride [Moles/Vol] 102 mmol/L Normal 98-107 [facility] Comment [facility]: Order Comment: Campu s: M Performed By: #### L 500.37488, L500.18594 ####[facility] MJJYTCABDI8976 [place], [place] [address]Hh# [phone] CO2 [Moles/Vol] 25.0 mmol/L Normal 21-32 [facility] Comment on above: Order Comment: Campu s: M Performed By: #### L 500.14591, L500.53151 ####[facility] [id number] [place], [place] [address]Ga# [phone] Creatinine [Mass/Vol] 0.71 mg/dL Normal 0.5-1.4 [facility] Comment on above: Order Comment: Campu s: M Result Comment: NOTE NEW NORMAL RANGE DUE TO REAGENT CHANGEPatients receiving either N-Acetylcysteine (NAC) orMetamizole prior to venipuncture, may have falsely depressedresults. Performed By: #### L 500.70322, L500.37287 ####[facility] VOAASLCESK5734 [place], [place] [address]No# [phone] Glucose [Mass/Vol] 127 mg/dL High 70-100 [facility] Comment on above: Order Comment: Campu s: M Result Comment: 70-1 00- Normal Fasting; 100-125 Impaired Fasting; greaterthan 126 on more than one result- Diabetes. ADA guidelines.Results may be falsely elevated after the administration ofSulfapyridine.Results may be falsely depressed after the administration ofSulfasalazine. Performed By: #### L 500.69149, L500.77666 ####[facility] CLENPNJXEV1159 [place], [place] [address]Pr# [phone] Potassium [Moles/Vol] 4.0 mmol/L Normal 3.5-5.1 [facility] Comment on above: Order Comment: Campu s: M Performed By: #### L 500.64020, L500.11787 ####[facility] RJJWGHFIHS3055 [place], [place] [address]Bu# [phone] Sodium [Moles/Vol] 135 mmol/L Low 136-145 [facility] Comment on above: Order Comment: Campu s: M Performed By: #### L 500.28786, L500.78938 ####[facility] [id number] [place] [address]Lj# [phone] Urea nitrogen [Mass/Vol] 9 mg/dL Normal 7-26 [facility] Comment on above: Order Comment: Campu s: M Performed By: #### L 500.02957, L500.79227 ####[facility] [id number] [place] [address]Uf# [phone] Urea nitrogen/Creatinine [Mass ratio] 13 mg/mg Low 15-24 [facility] Comment on above: Order Comment: Campu s: M Performed By: #### L 500.17798, L500.20951 ####[facility] MKLYBSISQP[address] [place] [address]Cn# [phone] CBCon 12-03-2021 Erythrocyte distribution width (RBC) [Ratio] 24.1 % High 11-14.5 [facility] Comment on above: Order Comment: Campu s: M Performed By: #### L 200.25159 ####[facility] [address]FSUZFBX[address] [place] [address]Gx# [phone] Hematocrit (Bld) [Volume fraction] 34.9 % Low 41.0-53.0 [facility] Comment on above: Order Comment: Campu s: M Performed By: #### L 200.51212 ####[facility] GYUSPRJLEX2263 [place], [place] [address]Sd# [phone] Hemoglobin (Bld) [Mass/Vol] 10.0 g/dL Low 13.5-17.5 [facility] Comment on above: Order Comment: Campu s: M Performed By: #### L 200.92885 ####[facility] [id number] [place], [place] [address]Hk# [phone] MCHC (RBC) [Mass/Vol] 28.7 g/dL Low 32.0-36.0 [facility] Comment on above: Order Comment: Campu s: M Performed By: #### L 200.87910 ####[facility] [id number] [place] [address]Do# [phone] MCV (RBC) [Entitic vol] 71.2 fL Low 80.0-99.0 [facility] Comment on above: Order Comment: Campu s: M Performed By: #### L 200.41200 ####[facility] [id number] [place] [address]Yt# [phone] Nucleated RBC/100 WBC (Bld) [Ratio] 0.0 % Normal Less than 1 [facility] Comment on above: Order Comment: Campu s: M Performed By: #### L 200.01308 ####[facility] [id number] [place] [address]Qa# [phone] Platelet mean volume (Bld) [Entitic vol] 9.3 fL Low 9.4-12.4 [facility] Comment on above: Order Comment: Campu s: M Performed By: #### L 200.72025 ####[facility] [id number] [place] [address]Ob# [phone] PLT 273 K/CU MM Normal 150-450 [facility] Comment on above: Order Comment: Campu s: M Performed By: #### L 200.36366 ####[facility] SFLYBEDLCJ9781 [place], [place] [address]Fh# [phone] RBC 4.90 M/CU MM Normal 4.50-6.00 [facility] Comment on above: Order Comment: Campu s: M Performed By: #### L 200.07748 ####[facility] QGWORTYYMD9710 [place], [place] [address]Nd# [phone] WBC 19.6 K/CUMM High 4.5-11.0 [facility] Comment on above: Order Comment: Martinu s: M Performed By: #### L 200.97668 ####[facility] XRGBUHPFWT7764 [place], [place] [address]Se# [phone] GFR ESTon 12-03-2021 IF AMER Greater than 60 [facility] Comment on above: Order Comment: Martinu s: M Performed By: #### L 500.49539, L500.99444 ####[facility] AJLLWXLGVN8595 [place], [place] [address]Ys# [phone] IF non-AFR AMER Greater than 60 [facility] Comment on above: Order Comment: Martinu s: M Performed By: #### L 500.69869, L500.64309 ####[facility] KSWLQRMIFN8274 [place], [place] [address]Zq# [phone] PROG IMSon 12-03-2021 PROG IMS Normal [facility] Progress Note-Hospitalist Normal [facility] PTTon 12-03-2021 aPTT Coag (Bld) [Time] 35.5 s High 22.0-31.5 [facility] Comment on above: Order Comment: Alan s: M: HEP GTT, GET WITH MORNING LABS, THANKS Result Comment: Ther apeutic Heparin Reference Range: High Dose: 46-75 seconds (DVT/PE) Low Dose: 39-60 seconds (Acute Coronary Syndrome)For low molecular weight heparin or danaparoid, monitoringis often NOT necessary, but the heparin assay, Xa inhibitionassay (send-out) may be used in certain circumstances, asthe PTT is generally insensitive to the effect of theseagents. Direct thrombin inhibitors are becoming more widelyutilized and these drugs are often monitored using the PTT. Performed By: #### L 300.73015 ####[facility] ATJXWULZMK7744 [place], [place] [address]Py# [phone] CARD.CATHon 12-02-2021 CARD.CATH Normal [facility] OTPNon 12-02-2021 OT Progress Note Normal [facility] OTPN Normal [facility] PROG IMSon 12-02-2021 PROG IMS Normal [facility] Progress Note-Hospitalist Normal [facility] PROG.ONCon 12-02-2021 PROG.ONC Normal [facility] Progress Note-Hem&Onc Normal [facility] PTPNon 12-02-2021 PT Progress Note Normal [facility] PTPN Normal [facility] PTTon 12-02-2021 aPTT Coag (Bld) [Time] 44.7 s High 22.0-31.5 [facility] Comment on above: Order Comment: Martinu s: M: HEP GTT Result Comment: Ther apeutic Heparin Reference Range: High Dose: 46-75 seconds (DVT/PE) Low Dose: 39-60 seconds (Acute Coronary Syndrome)For low molecular weight heparin or danaparoid, monitoringis often NOT necessary, but the heparin assay, Xa inhibitionassay (send-out) may be used in certain circumstances, asthe PTT is generally insensitive to the effect of theseagents. Direct thrombin inhibitors are becoming more widelyutilized and these drugs are often monitored using the PTT. Performed By: #### L 300.05602 ####[facility] UOSNACZZVI4881 [place], [place] [address]Ot# [phone] BMPon 12-01-2021 Anion gap [Moles/Vol] 6 mmol/L Normal 5-16 [facility] Comment on above: Order Comment: Campu s: M Performed By: #### L 500.73722, L500.56946, L500.11412 ####[facility] TFTKZXPCPH3340 [place], [place] [address]Xe# [phone] Calcium [Mass/Vol] 8.3 mg/dL Low 8.5-10.5 [facility] Comment on above: Order Comment: Campu s: M Result Comment: NOTE NEW NORMAL RANGE DUE TO REAGENT CHANGE Performed By: #### L 500.86812, L500.75933, L500.75464 ####[facility] HVLKKDGQIX2463 [place], [place] [address]Ut# [phone] Chloride [Moles/Vol] 106 mmol/L Normal 98-107 [facility] Comment on above: Order Comment: Campu s: M Performed By: #### L 500.35244, L500.32805, L500.67403 ####[facility] AQTJNRBHVL3376 [place], [place] [address]Mm# [phone] CO2 [Moles/Vol] 24.0 mmol/L Normal 21-32 [facility] Comment on above: Order Comment: Campu s: M Performed By: #### L 500.17427, L500.47623, L500.02552 ####[facility] YHFFRGOTNQ4344 [place], [place] [address]Sq# [phone] Creatinine [Mass/Vol] 0.64 mg/dL Normal 0.5-1.4 [facility] Comment on above: Order Comment: Campu s: M Result Comment: NOTE NEW NORMAL RANGE DUE TO REAGENT CHANGEPatients receiving either N-Acetylcysteine (NAC) orMetamizole prior to venipuncture, may have falsely depressedresults. Performed By: #### L 500.62502, L500.65811, L500.71385 ####[facility] [id number] [place], [place] [address]Wt# [phone] Glucose [Mass/Vol] 112 mg/dL High 70-100 [facility] Comment on above: Order Comment: Campu s: M Result Comment: 70-1 00- Normal Fasting; 100-125 Impaired Fasting; greaterthan 126 on more than one result- Diabetes. ADA guidelines.Results may be falsely elevated after the administration ofSulfapyridine.Results may be falsely depressed after the administration ofSulfasalazine. Performed By: #### L 500.23951, L500.82098, L500.23761 ####[facility] ZZHGJIDNXG3175 [place], [place] [address]Ge# [phone] Potassium [Moles/Vol] 4.4 mmol/L Normal 3.5-5.1 [facility] Comment on above: Order Comment: Campu s: M Result Comment: Slig ht Hemolysis, Result may be affected. Performed By: #### L 500.61170, L500.86370, L500.66214 ####[facility] STCKPARPFJ1790 [place], [place] [address]Jg# [phone] Sodium [Moles/Vol] 136 mmol/L Normal 136-145 [facility] Comment on above: Order Comment: Campu s: M Performed By: #### L 500.46536, L500.63832, L500.71526 ####[facility] XKCREAVYWP7727 [place], [place] [address]Lz# [phone] Urea nitrogen [Mass/Vol] 8 mg/dL Normal 7-26 [facility] Comment on above: Order Comment: Campu s: M Performed By: #### L 500.25054, L500.50700, L500.28990 ####[facility] MRIAXZZMNP[address] [place] [address]Lu# [phone] Urea nitrogen/Creatinine [Mass ratio] 12 mg/mg Low 15-24 [facility] Comment on above: Order Comment: Campu s: M Performed By: #### L 500.47324, L500.24869, L500.74991 ####[facility] FWCRTZBPPN8929 [place], [place] [address]El# [phone] CBC W/DIFFon 12-01-2021 ANISO 2+ Normal [facility] Comment on above: Order Comment: Campu s: M Performed By: #### L 200.31945 ####[facility] SIIUHEUPBA6172 [place], [place] [address]Fk# [phone] BASO ABS 0.10 K/CU MM Normal 0-0.2 [facility] Comment on above: Order Comment: Campu s: M Performed By: #### L 200.70812 ####[facility] EBCIORVJBE[address] [place] [address]Si# [phone] Basophils/100 WBC (Bld) 0.5 % Normal 0-2 [facility] [place] Comment on above: Order Comment: Campu s: M Performed By: #### L 200.71199 ####[facility] CKHFGKCYLL2085 [place], [place] [address]Sb# [phone] EOS ABS 0.10 K/CU MM Normal 0-0.5 [facility] [place] Comment on above: Order Comment: Campu s: M Performed By: #### L 200.17628 ####[facility] TXENZXDVXQ[address] [place], [place] [address]Ph# [phone] Eosinophils/100 WBC (Bld) 0.7 % Normal 0-5 [facility] [place] Comment on above: Order Comment: Campu s: M Performed By: #### L 200.38086 ####[place] [address]Ph# [phone] HYPO 3+ Normal [facility] Comment on above: Order Comment: Campu s: M Performed By: #### L 200.68593 ####[facility] REPEZDKXRM[address] [place], [place] [address]Ph# [phone] IMMATR GRAN ABS 0.20 K/CU MM Normal Less than 2 [facility] [place] Comment on above: Order Comment: Campu s: M Performed By: #### L 200.81596 ####[facility] EMBPKMFGZC[address] [place], [place] [address]Ph# [phone] IMMATURE GRAN % 0.9 % Normal Less than 2 [facility] Comment on above: Order Comment: Campu s: M Performed By: #### L 200.01683 ####[facility] PHFBBGXVIN219[address] [place], [place] [address]Ph# [phone] LYMPH ABS 7.90 K/CU MM High 0.9-4.4 [facility] Comment on above: Order Comment: Campu s: M Performed By: #### L 200.01899 ####[facility] [id number] [place], [place] [address]Ph# [phone] Lymphocytes/100 WBC (Bld) 40.5 % High 20-40 [facility] Comment on above: Order Comment: Campu s: M Performed By: #### L 200.88126 ####[facility] AXBIOMEVGG9365 [place] [address]Ph# [phone] MICRO 2+ Normal [facility] Comment on above: Order Comment: Campu s: M Performed By: #### L 200.51100 ####[facility] CTJIFBABVL199[address] [place], [place] [address]Ph# [phone] MONO ABS 1.70 K/CU MM High 0.1-1.1 [facility] Comment on above: Order Comment: Campu s: M Performed By: #### L 200.65186 ####[facility] XZZVFPPGQH[address] [place], [place] [address]Ph# [phone] Monocytes/100 WBC (Bld) 8.6 % Normal 2-10 [facility] Comment on above: Order Comment: Campu s: M Performed By: #### L 200.20716 ####[facility] WMTGNGNBEL[address] [place], [place] [address]Ph# [phone] NEUTROPHIL ABS 9.50 K/CU MM High 2.0-8.3 [facility] Comment on above: Order Comment: Campu s: M Performed By: #### L 200.02861 ####[facility] HWWQVRDUKS[address] [place], [place] [address]Ph# [phone] Neutrophils/100 WBC (Bld) 48.8 % Normal 45-75 [facility] [place] Comment on above: Order Comment: Campu s: M Performed By: #### L 200.92082 ####[facility] YVDRFFGQYM020[address] [place], [place] [address]Ph# [phone] PLT EST ADEQUATE Normal [facility] Comment on above: Order Comment: Campu s: M Performed By: #### L 200.69142 ####[facility] LFCWATVCHR[address] [place] [address]Br# [phone] PLT MORPH LARGE FORMS NOTED Normal [facility] Comment on above: Order Comment: Campu s: M Performed By: #### L 200.42608 ####[facility] SDYJBJXKFW[address] [place] [address]Gh# [phone] POIK 1+ Normal [facility] Comment on above: Order Comment: Campu s: M Performed By: #### L 200.53807 ####[facility] GSXAGMCXVI[address] [place] [address]Pu# [phone] POLY 2+ Normal [facility] Comment on above: Order Comment: Campu s: M Performed By: #### L 200.57608 ####[facility] FEQAZAHXPN[address] [place] [address]Vm# [phone] RLYMPH PRESENT Normal [facility] Comment on above: Order Comment: Campu s: M Performed By: #### L 200.70925 ####[facility] HXKTVBTXAM[address] [place] [address]Qo# [phone] Erythrocyte distribution width (RBC) [Ratio] 22.5 % High 11-14.5 [facility] Comment on above: Order Comment: Campu s: M Performed By: #### L 200.52679 ####[facility] TSBOELMTHT[address] [place] [address]Ah# [phone] Hematocrit (Bld) [Volume fraction] 32.5 % Low 41.0-53.0 [facility] Comment on above: Order Comment: Campu s: M Performed By: #### L 200.99309 ####[facility] AGXXGFZZDZ[address] [place] [address]Qx# [phone] Hemoglobin (Bld) [Mass/Vol] 9.2 g/dL Low 13.5-17.5 [facility] Comment on above: Order Comment: Campu s: M Performed By: #### L 200.95218 ####[facility] XPKDACKRVS[address] [place] [address]Hu# [phone] MCHC (RBC) [Mass/Vol] 28.3 g/dL Low 32.0-36.0 [facility] Comment on above: Order Comment: Campu s: M Performed By: #### L 200.87144 ####[facility] OILPJUWXIN[address] [place] [address]Xe# [phone] MCV (RBC) [Entitic vol] 69.7 fL Low 80.0-99.0 [facility] Comment on above: Order Comment: Campu s: M Performed By: #### L 200.74789 ####[place] [address]Ph# [phone] Nucleated RBC/100 WBC (Bld) [Ratio] 0.0 % Normal Less than 1 [facility] Comment on above: Order Comment: Campu s: M Performed By: #### L 200.60126 ####[facility] ZFGWQFQLFV[address] [place], [place] [address]Ph# [phone] Platelet mean volume (Bld) [Entitic vol] 9.1 fL Low 9.4-12.4 [facility] Comment on above: Order Comment: Campu s: M Performed By: #### L 200.16308 ####[facility] LQZTESDKBF[address] [place] [address]Tl# [phone] PLT 277 K/CU MM Normal 150-450 [facility] Comment on above: Order Comment: Campu s: M Performed By: #### L 200.70471 ####[facility] ONRLQOWOGE[address] [place] [address]Tc# [phone] RBC 4.66 M/CU MM Normal 4.50-6.00 [facility] Comment on above: Order Comment: Campu s: M Performed By: #### L 200.41668 ####[facility] LYUZIIMPJP[address] [place] [address]Qo# [phone] WBC 19.4 K/CUMM High 4.5-11.0 [facility] Comment on above: Order Comment: Campu s: M Performed By: #### L 200.83160 ####[facility] JFHQBFYQKM0698 [place], [place] [address]Ed# [phone] GFR ESTon 12-01-2021 IF AMER Greater than 60 Normal [facility] Comment on above: Order Comment: Campu s: M Performed By: #### L 500.82077, L500.88414, L500.49146 ####[facility] IEPDODXURG2629 [place], [place] [address]Xp# [phone] IF non-AFR AMER Greater than 60 Normal [facility] Comment on above: Order Comment: Campu s: M Performed By: #### L 500.50095, L500.76268, L500.84016 ####[facility] BVCFHJRAQJ2263 [place], [place] [address]Cs# [phone] HAPTOGLOBINon 12-01-2021 HAPTOGLOBIN 160 mg/dL Normal 32-363 [facility] Comment on above: Order Comment: Campu s: M Result Comment: Perf ormed At: Ellen Tian6[address] [facility] CenterHunterPort [place], [place] [id number] Vincent [id number] Performed By: #### L 200.74142 ####[facility]I[address] [place] [address]Ax# [phone] IGGon 12-01-2021 IgG [Mass/Vol] 828 mg/dL Normal 603-1613 [facility] Comment on above: Order Comment: Campu s: M Result Comment: Perf ormed At: CBLjordan Tian[address] [place], [place] [id number] Vincent [id number] Performed By: #### L 750.23442 ####[facility] YZMAEHJ[address] [place] [address]By# [phone] MAGNESIUMon 12-01-2021 Magnesium [Mass/Vol] 1.7 mg/dL Normal 1.6-2.6 [facility] Comment on above: Order Comment: Campu s: M Performed By: #### L 500.26872, L500.45154, L500.45357 ####[facility] SUYZJGZITV9447 [place], [place] [address]Ra# [phone] PROG IMSon 12-01-2021 PROG IMS Normal [facility] Progress Note-Hospitalist Normal [facility] PTTon 12-01-2021 aPTT Coag (Bld) [Time] 45.3 s High 22.0-31.5 [facility] Comment on above: Order Comment: Campu s: M: PT HEPARIN DRIP Result Comment: Ther apeutic Heparin Reference Range: High Dose: 46-75 seconds (DVT/PE) Low Dose: 39-60 seconds (Acute Coronary Syndrome)For low molecular weight heparin or danaparoid, monitoringis often NOT necessary, but the heparin assay, Xa inhibitionassay (send-out) may be used in certain circumstances, asthe PTT is generally insensitive to the effect of theseagents. Direct thrombin inhibitors are becoming more widelyutilized and these drugs are often monitored using the PTT. Performed By: #### L 300.23505 ####[facility] AJPAVTGSEN2552 [place], [place] [address]Qc# [phone] BMPon 11-30-2021 Anion gap [Moles/Vol] 6 mmol/L Normal 5-16 [facility] Comment on above: Order Comment: Campu s: M Performed By: #### L 500.62510, L500.67134, L500.25303, L500.18583 ####[facility] CNKQSSJYMU8554 [place], [place] [address]Va# [phone] Calcium [Mass/Vol] 8.3 mg/dL Low 8.5-10.5 [facility] Comment on above: Order Comment: Campu s: M Result Comment: NOTE NEW NORMAL RANGE DUE TO REAGENT CHANGE Performed By: #### L 500.20840, L500.92187, L500.64283, L500.87614 ####[facility] JJFFHVHEEA3016 [place], [place] [address]Xj# [phone] Chloride [Moles/Vol] 104 mmol/L Normal 98-107 [facility] Comment on above: Order Comment: Campu s: M Performed By: #### L 500.05944, L500.27216, L500.48945, L500.32032 ####[facility] TIFVHSWHTX2654 [place], [place] [address]Kd# [phone] CO2 [Moles/Vol] 25.0 mmol/L Normal 21-32 [facility] Comment on above: Order Comment: Campu s: M Performed By: #### L 500.31819, L500.03642, L500.60190, L500.74222 ####[facility] QWJGFSPXPX4504 [place], [place] [address]In# [phone] Creatinine [Mass/Vol] 0.70 mg/dL Normal 0.5-1.4 [facility] Comment on above: Order Comment: Campu s: M Result Comment: NOTE NEW NORMAL RANGE DUE TO REAGENT CHANGEPatients receiving either N-Acetylcysteine (NAC) orMetamizole prior to venipuncture, may have falsely depressedresults. Performed By: #### L 500.64628, L500.08255, L500.80089, L500.21948 ####[facility] APPAPHXWMI7609 [place], [place] [address]Us# [phone] Glucose [Mass/Vol] 110 mg/dL High 70-100 [facility] Comment on above: Order Comment: Campu s: M Result Comment: 70-1 00- Normal Fasting; 100-125 Impaired Fasting; greaterthan 126 on more than one result- Diabetes. ADA guidelines.Results may be falsely elevated after the administration ofSulfapyridine.Results may be falsely depressed after the administration ofSulfasalazine. Performed By: #### L 500.11941, L500.06193, L500.29670, L500.26751 ####[facility] MMSNYWMHFE0452 [place], [place] [address]Xj# [phone] Potassium [Moles/Vol] 4.3 mmol/L Normal 3.5-5.1 [facility] Comment on above: Order Comment: Campu s: M Performed By: #### L 500.90977, L500.67272, L500.87349, L500.04948 ####[facility] CMZZLYNXBI2377 [place], [place] [address]Bk# [phone] Sodium [Moles/Vol] 135 mmol/L Low 136-145 [facility] Comment on above: Order Comment: Campu s: M Performed By: #### L 500.09892, L500.27788, L500.75850, L500.08722 ####[facility] LIWGDGQPNQ6909 [place], [place] [address]Jh# [phone] Urea nitrogen [Mass/Vol] 9 mg/dL Normal 7-26 [facility] Comment on above: Order Comment: Campu s: M Performed By: #### L 500.49736, L500.46667, L500.91471, L500.65428 ####[facility] UNYOXTABGM9556 [place], [place] [address]Av# [phone] Urea nitrogen/Creatinine [Mass ratio] 13 mg/mg Low 15-24 [facility] Comment on above: Order Comment: Campu s: M Performed By: #### L 500.21058, L500.35272, L500.17875, L500.19771 ####[facility] JAWJXWWVSG1259 [place], [place] [address]Yc# [phone] CBC W/DIFFon 11-30-2021 ANISO 1+ Normal [facility] Comment on above: Order Comment: Campu s: M Performed By: #### L 200.46792, L200.64788 ####[facility] ANYWZHLKUV4321 [place], [place] [address]Uh# [phone] BASO ABS 0.10 K/CU MM Normal 0-0.2 [facility] Comment on above: Order Comment: Campu s: M Performed By: #### L 200.23185, L200.87901 ####[facility] XSBBJPRKXR6996 [place], [place] [address]Vh# [phone] Basophils/100 WBC (Bld) 0.3 % Normal 0-2 [facility] Comment on above: Order Comment: Campu s: M Performed By: #### L 200.78832, L200.24439 ####[facility] BIIELJJNCS[address] [place], [place] [address]Ph# [phone] EOS ABS 0.10 K/CU MM Normal 0-0.5 [facility] Comment on above: Order Comment: Campu s: M Performed By: #### L 200.46343, L200.53011 ####[place] [address]Ph# [phone] Eosinophils/100 WBC (Bld) 0.6 % Normal 0-5 [facility] Comment on above: Order Comment: Campu s: M Performed By: #### L 200.67479, L200.71388 ####[facility] RBMXNGFWTQ[address] [place], [place] [address]Ph# [phone] HYPO 4+ Normal [facility] Comment on above: Order Comment: Campu s: M Performed By: #### L 200.92893, L200.25117 ####[address] [address]Tk# [phone] IMMATR GRAN ABS 0.30 K/CU MM Normal Less than 2 [facility] Comment on above: Order Comment: Campu s: M Performed By: #### L 200.51790, L200.45864 ####[facility] [address]KJFZSIYY[address] [place], [place] [address]Ph# [phone] IMMATURE GRAN % 1.5 % Normal Less than 2 [facility] Comment on above: Order Comment: Campu s: M Performed By: #### L 200.70160, L200.28194 ####[facility] [id number] [place], [place] [address]Ph# [phone] LYMPH ABS 9.60 K/CU MM High 0.9-4.4 [facility] Comment on above: Order Comment: Campu s: M Performed By: #### L 200.74901, L200.78335 ####[facility] NQJUDIISOG5422 [place], [place] [address]Xv# [phone] Lymphocytes/100 WBC (Bld) 43.2 % High 20-40 [facility] Comment on above: Order Comment: Campu s: M Performed By: #### L 200.30793, L200.01965 ####[facility] ZTCCCECCET[address] [place] [address]Zc# [phone] MICRO 2+ Normal [facility] Comment on above: Order Comment: Campu s: M Performed By: #### L 200.05434, L200.56157 ####[address] [address]Id# [phone] MONO ABS 1.80 K/CU MM High 0.1-1.1 [facility] Comment on above: Order Comment: Campu s: M Performed By: #### L 200.05642, L200.19516 ####[facility] [id number] [place] [address]Zg# [phone] Monocytes/100 WBC (Bld) 7.9 % Normal 2-10 [facility] Comment on above: Order Comment: Campu s: M Performed By: #### L 200.76314, L200.18418 ####[facility] XFBXXCJCIP[address] [place] [address]Ub# [phone] NEUTROPHIL ABS 10.40 K/CU MM High 2.0-8.3 [facility] Comment on above: Order Comment: Campu s: M Performed By: #### L 200.15748, L200.25053 ####[facility] SPZHLLGGWL[address] [place] [address]Ud# [phone] Neutrophils/100 WBC (Bld) 46.5 % Normal 45-75 [facility] Comment on above: Order Comment: Campu s: M Performed By: #### L 200.53047, L200.59599 ####[facility] QXUUHEDZNB0840 [place], [place] [address]Uo# [phone] OVALOCYTES 1+ Normal [facility] Comment on above: Order Comment: Campu s: M Performed By: #### L 200.39572, L200.36797 ####[facility] CWZRWQJKRT7894 [place], [place] [address]Jv# [phone] PLT EST ADEQUATE Normal [facility] Comment on above: Order Comment: Campu s: M Performed By: #### L 200.46657, L200.55869 ####[address] [address]Uo# [phone] PLT MORPH LARGE FORMS NOTED Normal [facility] Comment on above: Order Comment: Campu s: M Performed By: #### L 200.72548, L200.82477 ####[facility] DGSNYGXJSI[address] [place] [address]Ia# [phone] POIK 2+ Normal [facility] Comment on above: Order Comment: Campu s: M Performed By: #### L 200.08935, L200.03526 ####[facility] SITOMIVCQH[address] [place] [address]Do# [phone] POLY 1+ Normal [facility] Comment on above: Order Comment: Campu s: M Performed By: #### L 200.01434, L200.30206 ####[facility] EEUDPXSHLW[address] [place] [address]Rh# [phone] Erythrocyte distribution width (RBC) [Ratio] 21.1 % High 11-14.5 [facility] Comment on above: Order Comment: Campu s: M Performed By: #### L 200.74846, L200.75576 ####[facility] MIIJIJDLPQ[address] [place] [address]Xf# [phone] Hematocrit (Bld) [Volume fraction] 29.4 % Low 41.0-53.0 [facility] Comment on above: Order Comment: Campu s: M Performed By: #### L 200.50086, L200.72209 ####[facility] UZKCZTZIXX7788 [place], [place] [address]Yi# [phone] Hemoglobin (Bld) [Mass/Vol] 8.2 g/dL Low 13.5-17.5 [facility] Comment on above: Order Comment: Campu s: M Performed By: #### L 200.27972, L200.20732 ####[facility] OQAHEYCWXV4528 [place], [place] [address]Rp# [phone] MCHC (RBC) [Mass/Vol] 27.9 g/dL Low 32.0-36.0 [facility] Comment on above: Order Comment: Campu s: M Performed By: #### L 200.59503, L200.79381 ####[facility] [address]JZC[address] [place] [address]Ug# [phone] MCV (RBC) [Entitic vol] 68.7 fL Low 80.0-99.0 [facility] Comment on above: Order Comment: Campu s: M Performed By: #### L 200.36099, L200.95794 ####[facility] VTEWHZFBQG7551 [place], [place] [address]Dt# [phone] Nucleated RBC/100 WBC (Bld) [Ratio] 0.0 % Normal Less than 1 [facility] Comment on above: Order Comment: Campu s: M Performed By: #### L 200.30365, L200.88900 ####[facility] YHBVUGFSSD9582 [place], [place] [address]Ww# [phone] Platelet mean volume (Bld) [Entitic vol] 9.1 fL Low 9.4-12.4 [facility] Comment on above: Order Comment: Campu s: M Performed By: #### L 200.27448, L200.72654 ####[facility] QXBQIQXWNR[address] [place] [address]Cx# [phone] PLT 308 K/CU MM Normal 150-450 [facility] Comment on above: Order Comment: Campu s: M Performed By: #### L 200.83591, L200.00493 ####[facility] FWJUXHUOVU1818 [place], [place] [address]Yh# [phone] RBC 4.28 M/CU MM Low 4.50-6.00 [facility] Comment on above: Order Comment: Campu s: M Performed By: #### L 200.38058, L200.76065 ####[facility] DLFHEFCBKJ4561 [place], [place] [address]Go# [phone] WBC 22.3 K/CUMM High 4.5-11.0 [facility] Comment on above: Order Comment: Campu s: M Performed By: #### L 200.09179, L200.95747 ####[facility] [id number] [place] [address]Fu# [phone] GFR ESTon 11-30-2021 IF [facility] Greater than 60 [facility]: Order Comment: Campu s: M Performed By: #### L 500.03805, L500.77851, L500.54027, L500.63698 ####[facility] [id number] [place], [place] [address]Ag# [phone] IF non-AFR AMER Greater than 60 [facility] Comment [facility]: Order Comment: Campu s: M Performed By: #### L 500.69229, L500.73918, L500.55905, L500.88586 ####[facility] [id number] [place], [place] [address]Ps# [phone] GLUCOSE METERon 11-30-2021 Glucose [Mass/Vol] 133 mg/dL High 85-125 [facility] [place] Glucose [Mass/Vol] 118 mg/dL Normal 85-125 [facility] Glucose [Mass/Vol] 107 mg/dL Normal 85-125 [facility]-30-2021 LDH 194 U/L Normal 87-241 [facility] Comment on above: Order Comment: Martinu s: M Performed By: #### L 500.85861, L500.00083, L500.03545, L500.34570 ####[facility] [id number] [place], [place] [address]Ht# [phone] MAGNESIUMon 11-30-2021 Magnesium [Mass/Vol] 1.8 mg/dL Normal 1.6-2.6 [facility] Comment on above: Order Comment: Martinu s: M Performed By: #### L 500.93870, L500.20914, L500.89469, L500.07679 ####[facility] [id number] [place], [place] [address]Dw# [phone] PBNP TESTon 11-30-2021 Natriuretic peptide B (Bld) [Mass/Vol] 2039 pg/mL High 0-125 [facility] Comment on above: Order Comment: Alan s: M Result Comment: NT-p roBNP results of less than 300 pg/ml likely rules outacute congestive heart failure with 99% predictive value.NOTE: These cuttoff points are suggested for ACUTE CHFDIAGNOSIS onlyLess than 50 years Greater than 450 pg/ml50-75 years Greater than 900 pg/mlGreater than 75 years Greater than 1800 pg/mlNOTE NEW NORMAL RANGE Performed By: #### L 500.45310 ####[facility] [id number] [place], [place] [address]Bo# [phone] PROG IMSon 11-30-2021 PROG IMS Normal [facility] Progress Note-Hospitalist Normal [facility] PROG.Martha 11-30-2021 PROG.CARD Normal [facility] Progress Note-Cardiology Normal [facility] PTTon 11-30-2021 aPTT Coag (Bld) [Time] 41.2 s High 22.0-31.5 [facility] Comment on above: Order Comment: Alan s: M Result Comment: Ther apeutic Heparin Reference Range: High Dose: 46-75 seconds (DVT/PE) Low Dose: 39-60 seconds (Acute Coronary Syndrome)For low molecular weight heparin or danaparoid, monitoringis often NOT necessary, but the heparin assay, Xa inhibitionassay (send-out) may be used in certain circumstances, asthe PTT is generally insensitive to the effect of theseagents. Direct thrombin inhibitors are becoming more widelyutilized and these drugs are often monitored using the PTT. Performed By: #### L 300.49052 ####[facility] [id number] [place], [place] [address]Fz# [phone] RETIC CTon 11-30-2021 % RETICULOCYTES 3.80 % High 0.5-1.8 [facility] Comment on above: Order Comment: Martinu s: M Performed By: #### L 200.78866, L200.34719 ####[facility] SZQBNOLOGB5095 [place], [place] [address]Wm# [phone] ABSOLUTE RETIC 0.16 M/CU MM Normal [facility] Comment on above: Order Comment: Martinu s: M Performed By: #### L 200.66215, L200.95326 ####[facility] SKDZRMARIQ6463 [place], [place] [address]Sz# [phone] IRF 44.8 % High 2.3-13.4 [facility] Comment on above: Order Comment: Martinu s: M Result Comment: Martha ures the % of all reticulocytes that are immature whichhelps evaluate the erythropoietic activity in anemia. Performed By: #### L 200.16716, L200.64591 ####[facility] NEBNOZLAAM7983 [place], [place] [address]Wm# [phone] BMPon 11-29-2021 Anion gap [Moles/Vol] 6 mmol/L Normal 5-16 [facility] Comment on above: Order Comment: Martinu s: M Performed By: #### L 500.96169, L500.49191, L500.93463 ####[facility] CRIHCZHFFM2153 [place], [place] [address]Jz# [phone] Calcium [Mass/Vol] 7.9 mg/dL Low 8.5-10.5 [facility] [place] Comment on above: Order Comment: Campu s: M Result Comment: NOTE NEW NORMAL RANGE DUE TO REAGENT CHANGE Performed By: #### L 500.23484, L500.92587, L500.50150 ####[facility] JBJPROLDTA0196 [place], [place] [address]Wn# [phone] Chloride [Moles/Vol] 104 mmol/L Normal 98-107 [facility] [place] Comment on above: Order Comment: Campu s: M Performed By: #### L 500.73183, L500.79027, L500.57119 ####[facility] AUHBPMHVUW2786 [place], [place] [address]Jb# [phone] CO2 [Moles/Vol] 26.0 mmol/L Normal 21-32 [facility] Comment on above: Order Comment: Campu s: M Performed By: #### L 500.69478, L500.83161, L500.05856 ####[facility] LFNHDSKTHB1167 [place], [place] [address]Ek# [phone] Creatinine [Mass/Vol] 0.63 mg/dL Normal 0.5-1.4 [facility] [place] Comment on above: Order Comment: Campu s: M Result Comment: NOTE NEW NORMAL RANGE DUE TO REAGENT CHANGEPatients receiving either N-Acetylcysteine (NAC) orMetamizole prior to venipuncture, may have falsely depressedresults. Performed By: #### L 500.53129, L500.31356, L500.61763 ####[facility] FACKWQFROM3766 [place], [place] [address]Ik# [phone] Glucose [Mass/Vol] 100 mg/dL Normal 70-100 [facility] Comment on above: Order Comment: Campu s: M Result Comment: 70-1 00- Normal Fasting; 100-125 Impaired Fasting; greaterthan 126 on more than one result- Diabetes. ADA guidelines.Results may be falsely elevated after the administration ofSulfapyridine.Results may be falsely depressed after the administration ofSulfasalazine. Performed By: #### L 500.93402, L500.16549, L500.03853 ####[facility] LQLQIHCZFC7659 [place], [place] [address]Ez# [phone] Potassium [Moles/Vol] 3.7 mmol/L Normal 3.5-5.1 [facility] [place] Comment on above: Order Comment: Campu s: M Result Comment: Slig ht Hemolysis, Result may be affected. Performed By: #### L 500.30082, L500.82808, L500.21764 ####[facility] JGMXRNQPWU3689 [place], [place] [address]Hm# [phone] Sodium [Moles/Vol] 136 mmol/L Normal 136-145 [facility] [place] Comment on above: Order Comment: Campu s: M Performed By: #### L 500.35437, L500.81540, L500.84926 ####[facility] [address]WY[address]SWX[address] [place] [address]Wc# [phone] Urea nitrogen [Mass/Vol] 7 mg/dL Normal 7-26 [facility] [place] Comment on above: Order Comment: Campu s: M Performed By: #### L 500.31966, L500.34737, L500.99994 ####[facility] WQTTKQFSKU2869 [place], [place] [address]Tz# [phone] Urea nitrogen/Creatinine [Mass ratio] 11 mg/mg Low 15-24 [facility] [place] Comment on above: Order Comment: Campu s: M Performed By: #### L 500.53565, L500.86723, L500.07007 ####[facility] GRBDQUKORC8528 [place], [place] [address]Gr# [phone] CBC W/DIFFon 11-29-2021 ANISO 1+ Normal [facility] Comment on above: Order Comment: Campu s: M Performed By: #### L 200.99676 ####[facility] [address]BEZUFCVRR[address] [place] [address]Dt# [phone] BAND ABS 0.20 K/CU MM Normal [facility] Comment on above: Order Comment: Campu s: M Performed By: #### L 200.63831 ####[facility] WXKHAQNCWH9131 [place], [place] [address]Sy# [phone] Band form neutrophils/100 WBC (Bld) 1.0 % Normal 0-7 [facility] [place] Comment on above: Order Comment: Campu s: M Performed By: #### L 200.92121 ####[facility] KMCFC[address]ICZ[address] [place], [place] [address]Ph# [phone] EOS ABS 0.20 K/CU MM Normal 0-0.5 [facility] Comment on above: Order Comment: Campu s: M Performed By: #### L 200.38627 ####[facility] [id number] [place] [address]Mc# [phone] Eosinophils/100 WBC (Bld) 1.0 % Normal 0-5 [facility] Comment on above: Order Comment: Campu s: M Performed By: #### L 200.49863 ####[facility] VGPDSHBGTV[address] [place], [place] [address]Ph# [phone] HYPO 3+ Normal [facility] Comment on above: Order Comment: Campu s: M Performed By: #### L 200.43960 ####[facility] [id number] [place] [address]Wu# [phone] LYMPH ABS 9.20 K/CU MM High 0.9-4.4 [facility] Comment on above: Order Comment: Campu s: M Performed By: #### L 200.42618 ####[facility] ZAUBTIFHNY[address] [place] [address]Eh# [phone] Lymphocytes/100 WBC (Bld) 46.0 % High 20-40 [facility] Comment on above: Order Comment: Campu s: M Performed By: #### L 200.52898 ####[facility] [id number] [place] [address]Tz# [phone] MICRO 2+ Normal [facility] Comment on above: Order Comment: Campu s: M Performed By: #### L 200.63631 ####[facility] GMYCQGPFWM9344 [place], [place] [address]Gv# [phone] MONO ABS 0.60 K/CU MM Normal 0.1-1.1 [facility] Comment on above: Order Comment: Campu s: M Performed By: #### L 200.56454 ####[facility] UQAJWAWHME9473 [place], [place] [address]Wp# [phone] Monocytes/100 WBC (Bld) 3.0 % Normal 2-10 [facility] Comment on above: Order Comment: Campu s: M Performed By: #### L 200.90818 ####[facility] DYSGYBPUJV3151 [place], [place] [address]Rh# [phone] NEUTROPHIL ABS 9.80 K/CU MM High 2.0-8.3 [facility] Comment on above: Order Comment: Campu s: M Performed By: #### L 200.83071 ####[facility] NJEIXLWOQI[address] [place] [address]Xm# [phone] Neutrophils/100 WBC (Bld) 49.0 % Normal 45-75 [facility] Comment on above: Order Comment: Campu s: M Performed By: #### L 200.03033 ####[facility] YUDNZVTYOT7353 [place], [place] [address]Pf# [phone] OVALOCYTES 1+ Normal [facility] Comment on above: Order Comment: Campu s: M Performed By: #### L 200.26148 ####[facility] CCFOSSGJGJ6944 [place], [place] [address]Ai# [phone] PLT EST ADEQUATE Normal [facility] Comment on above: Order Comment: Campu s: M Performed By: #### L 200.75819 ####[facility] [id number] [place], [place] [address]Lx# [phone] PLT MORPH LARGE FORMS NOTED Normal [facility] Comment on above: Order Comment: Campu s: M Performed By: #### L 200.54766 ####[facility] LXBNUOCTZD0583 [place], [place] [address]Pr# [phone] POIK 2+ Normal [facility] Comment on above: Order Comment: Campu s: M Performed By: #### L 200.06060 ####[facility] IHGNJXJNXR3555 [place], [place] [address]Dk# [phone] POLY 1+ Normal [facility] Comment on above: Order Comment: Campu s: M Performed By: #### L 200.05360 ####[facility] [address]TAJMUMMKC[address] [place] [address]Xf# [phone] Erythrocyte distribution width (RBC) [Ratio] 20.7 % High 11-14.5 [facility] Comment on above: Order Comment: Campu s: M Performed By: #### L 200.49206 ####[facility] LZFSJBAZPN[address] [place] [address]Xz# [phone] Hematocrit (Bld) [Volume fraction] 29.9 % Low 41.0-53.0 [facility] Comment on above: Order Comment: Campu s: M Performed By: #### L 200.57389 ####[facility] QNGPDQYRRI5450 [place], [place] [address]Sl# [phone] Hemoglobin (Bld) [Mass/Vol] 8.4 g/dL Low 13.5-17.5 [facility] Comment on above: Order Comment: Campu s: M Performed By: #### L 200.07667 ####[facility] STDUYRYZJU5087 [place], [place] [address]Ce# [phone] MCHC (RBC) [Mass/Vol] 28.1 g/dL Low 32.0-36.0 [facility] Comment on above: Order Comment: Campu s: M Performed By: #### L 200.19485 ####[facility] VIEMNOADHX8719 [place], [place] [address]Ar# [phone] MCV (RBC) [Entitic vol] 68.0 fL Low 80.0-99.0 [facility] Comment on above: Order Comment: Campu s: M Performed By: #### L 200.96807 ####[facility] XPCBVBKMHC4778 [place], [place] [address]Kp# [phone] Nucleated RBC/100 WBC (Bld) [Ratio] 0.0 % Normal Less than 1 [facility] Comment on above: Order Comment: Campu s: M Performed By: #### L 200.62425 ####[facility] [address]WZYHB[address] [place] [address]Md# [phone] Platelet mean volume (Bld) [Entitic vol] 9.3 fL Low 9.4-12.4 [facility] Comment on above: Order Comment: Campu s: M Performed By: #### L 200.48137 ####[facility] DIKGKHQSII[address] [place] [address]Sd# [phone] PLT 292 K/CU MM Normal 150-450 [facility] [place] Comment on above: Order Comment: Campu s: M Performed By: #### L 200.38080 ####[facility] KJTEIZVJMQ[address] [place] [address]Ge# [phone] RBC 4.40 M/CU MM Low 4.50-6.00 [facility] Comment on above: Order Comment: Campu s: M Performed By: #### L 200.03584 ####[facility] VQZLGQVJAF[address] [place] [address]Ei# [phone] WBC 20.0 K/CUMM High 4.5-11.0 [facility] Comment on above: Order Comment: Campu s: M Performed By: #### L 200.26648 ####[facility] [id number] [place] [address]Cp# [phone] GFR ESTon 11-29-2021 IF AMER Greater than 60 [facility]: Order Comment: Campu s: M Performed By: #### L 500.48343, L500.10040, L500.70149 ####[facility] ROCIIISCQN0628 [place], [place] [address]Rw# [phone] IF non-AFR AMER Greater than 60 Normal [facility] Comment on above: Order Comment: Martinu s: M Performed By: #### L 500.25801, L500.70929, L500.47766 ####[facility] KIIWUGJVVP0818 [place], [place] [address]Ih# [phone] MAGNESIUMon 11-29-2021 Magnesium [Mass/Vol] 1.8 mg/dL Normal 1.6-2.6 [facility] Comment on above: Order Comment: Campu s: M Performed By: #### L 500.82221, L500.81937, L500.73513 ####[facility] UNBBZDELEW5530 [place], [place] [address]Bk# [phone] OTPNon 11-29-2021 OT Progress Note Normal [facility] OTPN Normal [facility] PROG.Martha 11-29-2021 PROG.CARD Normal [facility] Progress Note-Cardiology Normal [facility] PROG.NOTEon 11-29-2021 PROG.NOTE Normal [facility] Progress Note-Physician Normal [facility] PROG.ONCon 11-29-2021 PROG.ONC Normal [facility] Progress Note-Hem&Onc Normal [facility] PTTon 11-29-2021 aPTT Coag (Bld) [Time] 40.5 s High 22.0-31.5 [facility] Comment on above: Order Comment: Martinu s: M Result Comment: Ther apeutic Heparin Reference Range: High Dose: 46-75 seconds (DVT/PE) Low Dose: 39-60 seconds (Acute Coronary Syndrome)For low molecular weight heparin or danaparoid, monitoringis often NOT necessary, but the heparin assay, Xa inhibitionassay (send-out) may be used in certain circumstances, asthe PTT is generally insensitive to the effect of theseagents. Direct thrombin inhibitors are becoming more widelyutilized and these drugs are often monitored using the PTT. Performed By: #### L 300.20296 ####[facility] ZQIGQUECGV3875 [place], [place] [address]Hg# [phone] SGNOFF.[facility] 11-29-2021 Prog/Sign Off Note-Hospitalist Normal [facility] SGNOFF.IMS Normal [facility] 11-28-2021 Anion gap [Moles/Vol] 6 mmol/L Normal 5-16 [facility] Comment on above: Order Comment: Campu s: M Performed By: #### L 500.71484, L500.06098, L500.23121 ####[facility] RODAGLCPTE7028 [place], [place] [address]On# [phone] Calcium [Mass/Vol] 7.9 mg/dL Low 8.5-10.5 [facility] Comment on above: Order Comment: Campu s: M Result Comment: NOTE NEW NORMAL RANGE DUE TO REAGENT CHANGE Performed By: #### L 500.27182, L500.14774, L500.37013 ####[facility] NVVLBWNOYE1409 [place], [place] [address]Kg# [phone] Chloride [Moles/Vol] 104 mmol/L Normal 98-107 [facility] Comment on above: Order Comment: Campu s: M Performed By: #### L 500.18107, L500.59436, L500.05497 ####[facility] IIIMIMTICV7434 [place], [place] [address]Tq# [phone] CO2 [Moles/Vol] 26.0 mmol/L Normal 21-32 [facility] Comment on above: Order Comment: Campu s: M Performed By: #### L 500.62115, L500.96896, L500.07196 ####[facility] IIDUGQSHEF0912 [place], [place] [address]Mh# [phone] Creatinine [Mass/Vol] 0.63 mg/dL Normal 0.5-1.4 [facility] Comment on above: Order Comment: Campu s: M Result Comment: NOTE NEW NORMAL RANGE DUE TO REAGENT CHANGEPatients receiving either N-Acetylcysteine (NAC) orMetamizole prior to venipuncture, may have falsely depressedresults. Performed By: #### L 500.13186, L500.35968, L500.45668 ####[facility] MVDADFWPSL6093 [place], [place] [address]Yr# [phone] Glucose [Mass/Vol] 103 mg/dL High 70-100 [facility] Comment on above: Order Comment: Campu s: M Result Comment: 70-1 00- Normal Fasting; 100-125 Impaired Fasting; greaterthan 126 on more than one result- Diabetes. ADA guidelines.Results may be falsely elevated after the administration ofSulfapyridine.Results may be falsely depressed after the administration ofSulfasalazine. Performed By: #### L 500.76803, L500.62889, L500.20406 ####[facility] DZYRHYGJZB8879 [place], [place] [address]Tp# [phone] Potassium [Moles/Vol] 3.6 mmol/L Normal 3.5-5.1 [facility] Comment on above: Order Comment: Campu s: M Performed By: #### L 500.89472, L500.96111, L500.48539 ####[facility] DNWLPACAVS1644 [place], [place] [address]Ru# [phone] Sodium [Moles/Vol] 136 mmol/L Normal 136-145 [facility] Comment on above: Order Comment: Campu s: M Performed By: #### L 500.76583, L500.59608, L500.42323 ####[facility] ARLKHXMYTF8043 [place], [place] [address]Cs# [phone] Urea nitrogen [Mass/Vol] 6 mg/dL Low 7-26 [facility] Comment on above: Order Comment: Campu s: M Performed By: #### L 500.69972, L500.91587, L500.37500 ####[facility] WQMITSAOSM4675 [place], [place] [address]Ho# [phone] Urea nitrogen/Creatinine [Mass ratio] 9 mg/mg Low 15-24 [facility] Comment on above: Order Comment: Campu s: M Performed By: #### L 500.10902, L500.21912, L500.48970 ####[facility] ZXDFSTYNLA7166 [place], [place] [address]Mh# [phone] CBC W/DIFFon 11-28-2021 ANISO 1+ [facility] Comment on above: Order Comment: Campu s: MMinimal Draw: Y Performed By: #### L 200.41086 ####[facility] BITXXENLVM[address] [place] [address]Rw# [phone] BASO ABS 0.10 K/CU MM Normal 0-0.2 [facility] Comment on above: Order Comment: Campu s: MMinimal Draw: Y Performed By: #### L 200.41973 ####[facility] [id number] [place], [place] [address]Ph# [phone] Basophils/100 WBC (Bld) 0.3 % Normal 0-2 [facility] Comment on above: Order Comment: Campu s: MMinimal Draw: Y Performed By: #### L 200.07427 ####[facility] TULNKNQGTT8251 [place], [place] [address]Rl# [phone] EOS ABS 0.10 K/CU MM Normal 0-0.5 [facility] Comment on above: Order Comment: Campu s: MMinimal Draw: Y Performed By: #### L 200.33420 ####[facility] HJWGAXWLGV8254 [place], [place] [address]Yd# [phone] Eosinophils/100 WBC (Bld) 0.3 % Normal 0-5 [facility] Comment on above: Order Comment: Campu s: MMinimal Draw: Y Performed By: #### L 200.22044 ####[facility] UMPMDJECXL[address] [place] [address]Fh# [phone] HYPO 3+ Normal [facility] Comment on above: Order Comment: Campu s: MMinimal Draw: Y Performed By: #### L 200.61375 ####[facility] OEOTUPGASZ0766 [place] [address]Ph# [phone] IMMATR GRAN ABS 0.20 K/CU MM Normal Less than 2 [facility] Comment on above: Order Comment: Campu s: MMinimal Draw: Y Performed By: #### L 200.65335 ####[facility] JQHHNEKPTJ[address] [place], [place] [address]Ph# [phone] IMMATURE GRAN % 0.8 % Normal Less than 2 [facility] Comment on above: Order Comment: Campu s: MMinimal Draw: Y Performed By: #### L 200.83247 ####[place] [address]Ph# [phone] LYMPH ABS 9.10 K/CU MM High 0.9-4.4 [facility] Comment on above: Order Comment: Campu s: MMinimal Draw: Y Performed By: #### L 200.30276 ####[place] [address]Ph# [phone] Lymphocytes/100 WBC (Bld) 47.9 % High 20-40 [facility] Comment on above: Order Comment: Campu s: MMinimal Draw: Y Performed By: #### L 200.18491 ####[facility] SQLWBUNKVR[address] [place], [place] [address]Ph# [phone] MICRO 2+ Normal [facility] Comment on above: Order Comment: Campu s: MMinimal Draw: Y Performed By: #### L 200.60659 ####[facility] [id number] [place], [place] [address]Ph# [phone] MONO ABS 1.40 K/CU MM High 0.1-1.1 [facility] Comment on above: Order Comment: Campu s: MMinimal Draw: Y Performed By: #### L 200.75330 ####[facility] IGEVDLQQEM3526 [place], [place] [address]Cm# [phone] Monocytes/100 WBC (Bld) 7.1 % Normal 2-10 [facility] Comment on above: Order Comment: Campu s: MMinimal Draw: Y Performed By: #### L 200.03414 ####[facility] VPAWADBUVG5562 [place], [place] [address]Ei# [phone] NEUTROPHIL ABS 8.30 K/CU MM Normal 2.0-8.3 [facility] Comment on above: Order Comment: Campu s: MMinimal Draw: Y Performed By: #### L 200.09293 ####[facility] SQDTRNZTUL[address] [place] [address]Uz# [phone] Neutrophils/100 WBC (Bld) 43.6 % Low 45-75 [facility] Comment on above: Order Comment: Campu s: MMinimal Draw: Y Performed By: #### L 200.36230 ####[facility] [address]KBYCWEK[address] [place] [address]Dp# [phone] OVALOCYTES 1+ Normal [facility] Comment on above: Order Comment: Campu s: MMinimal Draw: Y Performed By: #### L 200.24365 ####[facility] [id number] [place] [address]Wa# [phone] PLT EST ADEQUATE Normal [facility] Comment on above: Order Comment: Campu s: MMinimal Draw: Y Performed By: #### L 200.15830 ####[facility] [id number] [place] [address]Kq# [phone] POIK 2+ Normal [facility] Comment on above: Order Comment: Campu s: MMinimal Draw: Y Performed By: #### L 200.61777 ####[facility] [id number] [place] [address]Lt# [phone] POLY 1+ Normal [facility] Comment on above: Order Comment: Campu s: MMinimal Draw: Y Performed By: #### L 200.81738 ####[facility] ASBJDONXNA0808 [place], [place] [address]Ly# [phone] SCHISTOCYTES 1+ Normal [facility] Comment on above: Order Comment: Campu s: MMinimal Draw: Y Performed By: #### L 200.43143 ####[address] [address]Ov# [phone] Erythrocyte distribution width (RBC) [Ratio] 20.3 % High 11-14.5 [facility] Comment on above: Order Comment: Campu s: MMinimal Draw: Y Performed By: #### L 200.28962 ####[address] [address]Gt# [phone] Hematocrit (Bld) [Volume fraction] 28.2 % Low 41.0-53.0 [facility] Comment on above: Order Comment: Campu s: MMinimal Draw: Y Performed By: #### L 200.51459 ####[address] [address]Io# [phone] Hemoglobin (Bld) [Mass/Vol] 8.1 g/dL Low 13.5-17.5 [facility] Comment on above: Order Comment: Campu s: MMinimal Draw: Y Performed By: #### L 200.29767 ####[address] [address]Xh# [phone] MCHC (RBC) [Mass/Vol] 28.7 g/dL Low 32.0-36.0 [facility] Comment on above: Order Comment: Campu s: MMinimal Draw: Y Performed By: #### L 200.21378 ####[facility] [id number] [place] [address]Pr# [phone] MCV (RBC) [Entitic vol] 66.8 fL Low 80.0-99.0 [facility] Comment on above: Order Comment: Campu s: MMinimal Draw: Y Performed By: #### L 200.36363 ####[facility] [id number] [place], [place] [address]Fb# [phone] Nucleated RBC/100 WBC (Bld) [Ratio] 0.0 % Normal Less than 1 [facility] Comment on above: Order Comment: Campu s: MMinimal Draw: Y Performed By: #### L 200.28824 ####[facility] [id number] [place], [place] [address]Qb# [phone] Platelet mean volume (Bld) [Entitic vol] 10.0 fL Normal 9.4-12.4 [facility] Comment on above: Order Comment: Campu s: MMinimal Draw: Y Performed By: #### L 200.50006 ####[facility] TPHVCOLENZ5124 [place], [place] [address]Ej# [phone] PLT 294 K/CU MM Normal 150-450 [facility] Comment on above: Order Comment: Campu s: MMinimal Draw: Y Performed By: #### L 200.41390 ####[facility] PU[address] [place] [address]Ft# [phone] RBC 4.22 M/CU MM Low 4.50-6.00 [facility] Comment on above: Order Comment: Campu s: MMinimal Draw: Y Performed By: #### L 200.58828 ####[facility] SKWBOYFCNU7922 [place], [place] [address]Ar# [phone] WBC 19.0 K/CUMM High 4.5-11.0 [facility] Comment on above: Order Comment: Campu s: MMinimal Draw: Y Performed By: #### L 200.25989 ####[facility] JCJOPAKFVO[address] [place] [address]Pr# [phone] CONS.ONCon 11-28-2021 CONS.ONC Normal [facility] CONSULTATION-ONC Normal [facility] GFR ESTon 11-28-2021 IF AMER Greater than 60 Normal [facility] Comment on above: Order Comment: Campu s: M Performed By: #### L 500.37689, L500.30103, L500.21267 ####[facility] GJDCVENGLX7558 [place], [place] [address]Mw# [phone] IF non-AFR AMER Greater than 60 Normal [facility] Comment on above: Order Comment: Campu s: M Performed By: #### L 500.71547, L500.88810, L500.81569 ####[facility] WDSYHWFUOJ4262 [place], [place] [address]Sy# [phone] MAGNESIUMon 11-28-2021 Magnesium [Mass/Vol] 1.6 mg/dL Normal 1.6-2.6 [facility] Comment on above: Order Comment: Campu s: M Performed By: #### L 500.64693, L500.26728, L500.43283 ####[facility] MQOLNYNWTG6151 [place], [place] [address]Dm# [phone] OTPNon 11-28-2021 OT Progress Note Normal [facility] OTPN Normal [facility] PROG IMSon 11-28-2021 PROG IMS Normal [facility] Progress Note-Hospitalist Normal [facility] PTTon 11-28-2021 aPTT Coag (Bld) [Time] 42.1 s High 22.0-31.5 [facility] Comment on above: Order Comment: Martinu s: M Result Comment: Ther apeutic Heparin Reference Range: High Dose: 46-75 seconds (DVT/PE) Low Dose: 39-60 seconds (Acute Coronary Syndrome)For low molecular weight heparin or danaparoid, monitoringis often NOT necessary, but the heparin assay, Xa inhibitionassay (send-out) may be used in certain circumstances, asthe PTT is generally insensitive to the effect of theseagents. Direct thrombin inhibitors are becoming more widelyutilized and these drugs are often monitored using the PTT. Performed By: #### L 300.34688 ####[facility] FBLHEUEXNE9714 [place], [place] [address]Zd# [phone] aPTT Coag (Bld) [Time] 46.6 s High 22.0-31.5 [facility] Comment on above: Order Comment: Alan Riley: DO NOT DRAW FROM RIGHT ARM Result Comment: Ther apeutic Heparin Reference Range: High Dose: 46-75 seconds (DVT/PE) Low Dose: 39-60 seconds (Acute Coronary Syndrome)For low molecular weight heparin or danaparoid, monitoringis often NOT necessary, but the heparin assay, Xa inhibitionassay (send-out) may be used in certain circumstances, asthe PTT is generally insensitive to the effect of theseagents. Direct thrombin inhibitors are becoming more widelyutilized and these drugs are often monitored using the PTT. Performed By: #### L 300.72726 ####[place] [address] [place], [place] [address]Fv# [phone] aPTT Coag (Bld) [Time] 34.3 s High 22.0-31.5 [facility] Comment on above: Order Comment: Alan Riley: PT HAS HEPARIN DRIP Result Comment: Ther apeutic Heparin Reference Range: High Dose: 46-75 seconds (DVT/PE) Low Dose: 39-60 seconds (Acute Coronary Syndrome)For low molecular weight heparin or danaparoid, monitoringis often NOT necessary, but the heparin assay, Xa inhibitionassay (send-out) may be used in certain circumstances, asthe PTT is generally insensitive to the effect of theseagents. Direct thrombin inhibitors are becoming more widelyutilized and these drugs are often monitored using the PTT. Performed By: #### L 300.29173 ####[facility] KUGIEGHYTI7833 [place], [place] [address]Kr# [phone] aPTT Coag (Bld) [Time] 35.8 s High 22.0-31.5 [facility] Comment on above: Order Comment: Alan Riley Result Comment: Ther apeutic Heparin Reference Range: High Dose: 46-75 seconds (DVT/PE) Low Dose: 39-60 seconds (Acute Coronary Syndrome)For low molecular weight heparin or danaparoid, monitoringis often NOT necessary, but the heparin assay, Xa inhibitionassay (send-out) may be used in certain circumstances, asthe PTT is generally insensitive to the effect of theseagents. Direct thrombin inhibitors are becoming more widelyutilized and these drugs are often monitored using the PTT. Performed By: #### L 300.70152 ####[facility] DJJLZVJUUQ3131 [place], [place] [address]Ki# [phone] BMPon 11-27-2021 Anion gap [Moles/Vol] 5 mmol/L Normal 5-16 [facility] Comment on above: Order Comment: Campu s: M Performed By: #### L 500.95752, L500.97257, L500.94012 ####[facility] PYHNZIUNQT0078 [place], [place] [address]Nw# [phone] Calcium [Mass/Vol] 7.7 mg/dL Low 8.5-10.5 [facility] Comment on above: Order Comment: Campu s: M Result Comment: NOTE NEW NORMAL RANGE DUE TO REAGENT CHANGE Performed By: #### L 500.81040, L500.85762, L500.77522 ####[facility] MMSMVYTHWE7530 [place], [place] [address]Yd# [phone] Chloride [Moles/Vol] 103 mmol/L Normal 98-107 [facility] Comment on above: Order Comment: Campu s: M Performed By: #### L 500.87928, L500.81354, L500.96157 ####[facility] RVHRQRBUZC4899 [place], [place] [address]Ww# [phone] CO2 [Moles/Vol] 27.0 mmol/L Normal 21-32 [facility] Comment [facility] above: Order Comment: Campu s: M Performed By: #### L 500.36196, L500.28952, L500.49862 ####[facility] HXHHNUJTKY2644 [place], [place] [address]Bd# [phone] Creatinine [Mass/Vol] 0.61 mg/dL Normal 0.5-1.4 [facility] Comment on above: Order Comment: Campu s: M Result Comment: NOTE NEW NORMAL RANGE DUE TO REAGENT CHANGEPatients receiving either N-Acetylcysteine (NAC) orMetamizole prior to venipuncture, may have falsely depressedresults. Performed By: #### L 500.52918, L500.05487, L500.60866 ####[facility] IEVOGYYYQN8215 [place], [place] [address]Ze# [phone] Glucose [Mass/Vol] 102 mg/dL High 70-100 [facility] Comment on above: Order Comment: Campu s: M Result Comment: 70-1 00- Normal Fasting; 100-125 Impaired Fasting; greaterthan 126 on more than one result- Diabetes. ADA guidelines.Results may be falsely elevated after the administration ofSulfapyridine.Results may be falsely depressed after the administration ofSulfasalazine. Performed By: #### L 500.30246, L500.82138, L500.20026 ####[facility] ZRKKRJXDKK3521 [place], [place] [address]Xw# [phone] Potassium [Moles/Vol] 3.7 mmol/L Normal 3.5-5.1 [facility] Comment on above: Order Comment: Campu s: M Performed By: #### L 500.67864, L500.62031, L500.65462 ####[facility] CWKUUOOAQR2812 [place], [place] [address]Zm# [phone] Sodium [Moles/Vol] 135 mmol/L Low 136-145 [facility] Comment on above: Order Comment: Campu s: M Performed By: #### L 500.47479, L500.81481, L500.62561 ####[facility] YXWEHSHNCU4793 [place], [place] [address]El# [phone] Urea nitrogen [Mass/Vol] 7 mg/dL Normal 7-26 [facility] Comment on above: Order Comment: Campu s: M Performed By: #### L 500.96295, L500.54628, L500.03108 ####[facility] RJXHVDXNZM9377 [place], [place] [address]Hk# [phone] Urea nitrogen/Creatinine [Mass ratio] 11 mg/mg Low 15-24 [facility] Comment on above: Order Comment: Campu s: M Performed By: #### L 500.42561, L500.81496, L500.94399 ####[facility] E[address] [place], [place] [address]Ph# [phone] CBC W/DIFFon 11-27-2021 ANISO 1+ Normal [facility] Comment on above: Order Comment: Campu s: MMinimal Draw: Y Performed By: #### L 200.97987, L200.53145 ####[place] [address]Ph# [phone] BASO ABS 0.10 K/CU MM Normal 0-0.2 [facility] Comment on above: Order Comment: Campu s: MMinimal Draw: Y Performed By: #### L 200.42798, L200.27752 ####[place] [address]Ph# [phone] Basophils/100 WBC (Bld) 0.4 % Normal 0-2 [facility] Comment on above: Order Comment: Campu s: MMinimal Draw: Y Performed By: #### L 200.41742, L200.35945 ####[address] [address]Xh# [phone] EOS ABS 0.00 K/CU MM Normal 0-0.5 [facility] Comment on above: Order Comment: Campu s: MMinimal Draw: Y Performed By: #### L 200.04117, L200.53796 ####[facility] [address]LZQ[address] [place] [address]Ea# [phone] Eosinophils/100 WBC (Bld) 0.2 % Normal 0-5 [facility] Comment on above: Order Comment: Campu s: MMinimal Draw: Y Performed By: #### L 200.60781, L200.14702 ####[facility] Z[address]GQ[address]LLT[address] [place], [place] [address]Ph# [phone] HYPO 3+ Normal [facility] Comment on above: Order Comment: Campu s: MMinimal Draw: Y Performed By: #### L 200.90541, L200.27516 ####[facility] RBIARHZMTG3138 [place], [place] [address]Sc# [phone] IMMATR GRAN ABS 0.10 K/CU MM Normal Less than 2 [facility] Comment on above: Order Comment: Campu s: MMinimal Draw: Y Performed By: #### L 200.41132, L200.39898 ####[facility] [address]WSICXBW[address] [place], [place] [address]Ph# [phone] IMMATURE GRAN % 0.8 % Normal Less than 2 [facility] Comment on above: Order Comment: Campu s: MMinimal Draw: Y Performed By: #### L 200.28409, L200.70627 ####[place] [address]Ph# [phone] LYMPH ABS 8.80 K/CU MM High 0.9-4.4 [facility] Comment on above: Order Comment: Campu s: MMinimal Draw: Y Performed By: #### L 200.60649, L200.09572 ####[facility] UZURXCCAFV5343 [place] [address]Ph# [phone] Lymphocytes/100 WBC (Bld) 51.3 % High 20-40 [facility] Comment on above: Order Comment: Campu s: MMinimal Draw: Y Performed By: #### L 200.32872, L200.82360 ####[facility] CHTTQMPRYF4418 [place] [address]Ph# [phone] MICRO 2+ Normal [facility] Comment on above: Order Comment: Campu s: MMinimal Draw: Y Performed By: #### L 200.03799, L200.75213 ####[facility] BRQOSPTBJV5484 [place] [address]Ph# [phone] MONO ABS 0.70 K/CU MM Normal 0.1-1.1 [facility] Comment on above: Order Comment: Campu s: MMinimal Draw: Y Performed By: #### L 200.61570, L200.93460 ####[facility] TJDXPUPRYM8591 [place], [place] [address]Sj# [phone] Monocytes/100 WBC (Bld) 4.0 % Normal 2-10 [facility] Comment on above: Order Comment: Campu s: MMinimal Draw: Y Performed By: #### L 200.48532, L200.29240 ####[facility] NSVHBBQCZY3259 [place], [place] [address]Sr# [phone] NEUTROPHIL ABS 7.40 K/CU MM Normal 2.0-8.3 [facility] Comment on above: Order Comment: Campu s: MMinimal Draw: Y Performed By: #### L 200.11433, L200.64900 ####[facility] ZHZCOPMMCV4206 [place], [place] [address]Th# [phone] Neutrophils/100 WBC (Bld) 43.3 % Low 45-75 [facility] Comment on above: Order Comment: Campu s: MMinimal Draw: Y Performed By: #### L 200.08852, L200.61421 ####[facility] FVTDHASTXX6460 [place], [place] [address]Qf# [phone] OVALOCYTES 1+ Normal [facility] Comment on above: Order Comment: Campu s: MMinimal Draw: Y Performed By: #### L 200.52078, L200.75782 ####[facility] OWXIQKGVWP3167 [place], [place] [address]Ea# [phone] PLT EST ADEQUATE Normal [facility] Comment on above: Order Comment: Campu s: MMinimal Draw: Y Performed By: #### L 200.75129, L200.47717 ####[facility] [id number] [place], [place] [address]Gy# [phone] POIK 2+ Normal [facility] Comment on above: Order Comment: Campu s: MMinimal Draw: Y Performed By: #### L 200.13778, L200.50307 ####[facility] GMBZJPOMUV1483 [place], [place] [address]Qt# [phone] POLY 1+ Normal [facility] Comment on above: Order Comment: Campu s: MMinimal Draw: Y Performed By: #### L 200.61166, L200.18493 ####[address] [address]Hd# [phone] SCHISTOCYTES 1+ Normal [facility] Comment on above: Order Comment: Campu s: MMinimal Draw: Y Performed By: #### L 200.27377, L200.29625 ####[address] [address]Dl# [phone] Erythrocyte distribution width (RBC) [Ratio] 19.8 % High 11-14.5 [facility] Comment on above: Order Comment: Campu s: MMinimal Draw: Y Performed By: #### L 200.87279, L200.06163 ####[address] [address]Kj# [phone] Hematocrit (Bld) [Volume fraction] 27.1 % Low 41.0-53.0 [facility] Comment on above: Order Comment: Campu s: MMinimal Draw: Y Performed By: #### L 200.47953, L200.55176 ####[facility] [id number] [place] [address]Cd# [phone] Hemoglobin (Bld) [Mass/Vol] 7.7 g/dL Low 13.5-17.5 [facility] Comment on above: Order Comment: Campu s: MMinimal Draw: Y Performed By: #### L 200.11031, L200.29990 ####[facility] [id number] [place] [address]Bq# [phone] MCHC (RBC) [Mass/Vol] 28.4 g/dL Low 32.0-36.0 [facility] Comment on above: Order Comment: Campu s: MMinimal Draw: Y Performed By: #### L 200.82628, L200.67813 ####[facility] NECDSELYOW1195 [place], [place] [address]Wk# [phone] MCV (RBC) [Entitic vol] 66.6 fL Low 80.0-99.0 [facility] Comment on above: Order Comment: Campu s: MMinimal Draw: Y Performed By: #### L 200.08984, L200.10686 ####[address] [address]Xa# [phone] Nucleated RBC/100 WBC (Bld) [Ratio] 0.0 % Normal Less than 1 [facility] Comment on above: Order Comment: Campu s: MMinimal Draw: Y Performed By: #### L 200.79130, L200.60213 ####[facility] CSBDKKSDHI[address] [place] [address]Kq# [phone] Platelet mean volume (Bld) [Entitic vol] 9.8 fL Normal 9.4-12.4 [facility] Comment on above: Order Comment: Campu s: MMinimal Draw: Y Performed By: #### L 200.09641, L200.13625 ####[facility] [address]IWJN[address] [place] [address]Xl# [phone] PLT 270 K/CU MM Normal 150-450 [facility] Comment on above: Order Comment: Campu s: MMinimal Draw: Y Performed By: #### L 200.48881, L200.71126 ####[facility] WNHPTOEQLA[address] [place] [address]Zc# [phone] RBC 4.07 M/CU MM Low 4.50-6.00 [facility] Comment on above: Order Comment: Campu s: MMinimal Draw: Y Performed By: #### L 200.03559, L200.14660 ####[facility] LTZPVOKTZB1381 [place], [place] [address]Wi# [phone] WBC 17.1 K/CUMM High 4.5-11.0 [facility] Comment on above: Order Comment: Campu s: MMinimal Draw: Y Performed By: #### L 200.44538, L200.02350 ####[facility] RNAL[address] [place] [address]Bb# [phone] GFR ESTon 11-27-2021 IF AMER Greater than 60 Normal [facility] Comment on above: Order Comment: Campu s: M Performed By: #### L 500.07279, L500.91677, L500.61224 ####[facility] YVKAIRSXLO9225 [place], [place] [address]Ev# [phone] IF non-AFR AMER Greater than 60 Normal [facility] Comment on above: Order Comment: Campu s: M Performed By: #### L 500.69554, L500.07912, L500.64906 ####[facility] IBLTBZTHBD7704 [place], [place] [address]Oi# [phone] MAGNESIUMon 11-27-2021 Magnesium [Mass/Vol] 1.6 mg/dL Normal 1.6-2.6 [facility] Comment on above: Order Comment: Campu s: M Performed By: #### L 500.67511, L500.01008, L500.24002 ####[facility] [address]OOQUTVSN[address] [place] [address]Me# [phone] PROG IMSon 11-27-2021 PROG IMS Normal [facility] Progress Note-Hospitalist Normal [facility] PROG.Martha 11-27-2021 PROG.CARD Normal [facility] Progress Note-Cardiology Normal [facility] PTTon 11-27-2021 aPTT Coag (Bld) [Time] 32.0 s High 22.0-31.5 [facility] Comment on above: Order Comment: Alan s: Rosemary Result Comment: Ther apeutic Heparin Reference Range: High Dose: 46-75 seconds (DVT/PE) Low Dose: 39-60 seconds (Acute Coronary Syndrome)For low molecular weight heparin or danaparoid, monitoringis often NOT necessary, but the heparin assay, Xa inhibitionassay (send-out) may be used in certain circumstances, asthe PTT is generally insensitive to the effect of theseagents. Direct thrombin inhibitors are becoming more widelyutilized and these drugs are often monitored using the PTT. Performed By: #### L 300.62133 ####[facility] HMUSAWQJNW1902 [place], [place] [address]Ah# [phone] aPTT Coag (Bld) [Time] 32.2 s High 22.0-31.5 [facility] Comment on above: Order Comment: Alan s: Rosemary Result Comment: Ther apeutic Heparin Reference Range: High Dose: 46-75 seconds (DVT/PE) Low Dose: 39-60 seconds (Acute Coronary Syndrome)For low molecular weight heparin or danaparoid, monitoringis often NOT necessary, but the heparin assay, Xa inhibitionassay (send-out) may be used in certain circumstances, asthe PTT is generally insensitive to the effect of theseagents. Direct thrombin inhibitors are becoming more widelyutilized and these drugs are often monitored using the PTT. Performed By: #### L 300.39986 ####[facility] RDOREKAOTM[address] [place] [address]Mi# [phone] aPTT Coag (Bld) [Time] 32.5 s High 22.0-31.5 [facility] Comment on above: Order Comment: Alan peres: Rosemary: PT HAS HEPARIN DRIP Result Comment: Ther apeutic Heparin Reference Range: High Dose: 46-75 seconds (DVT/PE) Low Dose: 39-60 seconds (Acute Coronary Syndrome)For low molecular weight heparin or danaparoid, monitoringis often NOT necessary, but the heparin assay, Xa inhibitionassay (send-out) may be used in certain circumstances, asthe PTT is generally insensitive to the effect of theseagents. Direct thrombin inhibitors are becoming more widelyutilized and these drugs are often monitored using the PTT. Performed By: #### L 300.42601 ####[facility] CGACDIMNBH0776 [place], [place] [address]Lg# [phone] SMEAR REVIEWon 11-27-2021 SMEAR REVIEW TNP Normal [facility] Comment on above: Order Comment: Campu s: MMinimal Draw: Y Result Comment: SMRV 11/16 CLL Performed By: #### L 200.96570, L200.13898 ####[facility] [id number] [place] [address]Gu# [phone] STL OCC BLD SCRon 11-27-2021 STL OCC BLD SCR Negative Normal NEGATIVE [facility] Comment on above: Order Comment: Campu s: M Performed By: #### L 680.52456 ####[address] [address]Vi# [phone] BLOOD CULTUREon 11-26-2021 Bacteria identified Cx Nom (Bld) NO GROWTH AFTER 5 DAYS Normal [facility] Comment on above: Order Comment: Campu s: M Performed By: #### M 050.77834 ####[facility] [id number] [place] [address]Ky# [phone] BMPon 11-26-2021 Anion gap [Moles/Vol] 7 mmol/L Normal 5-16 [facility] Comment on above: Order Comment: Campu s: M Performed By: #### L 500.94103, L500.93133, L500.84652, L500.70586 ####[facility] ROXXZGEKAT6060 [place], [place] [address]Ix# [phone] Calcium [Mass/Vol] 7.8 mg/dL Low 8.5-10.5 [facility] Comment on above: Order Comment: Campu s: M Result Comment: NOTE NEW NORMAL RANGE DUE TO REAGENT CHANGE Performed By: #### L 500.34625, L500.57537, L500.35218, L500.81235 ####[facility] MDASXRFFVJ2728 [place], [place] [address]Ia# [phone] Chloride [Moles/Vol] 100 mmol/L Normal 98-107 [facility] Comment on above: Order Comment: Campu s: M Performed By: #### L 500.95470, L500.33710, L500.60983, L500.76977 ####[facility] SPWLXKGMTT5755 [place], [place] [address]Eb# [phone] CO2 [Moles/Vol] 24.0 mmol/L Normal 21-32 [facility] Comment on above: Order Comment: Campu s: M Performed By: #### L 500.49159, L500.77108, L500.53900, L500.35602 ####[facility] DZYDECMIFH9165 [place], [place] [address]Fi# [phone] Creatinine [Mass/Vol] 0.58 mg/dL Normal 0.5-1.4 [facility] Comment on above: Order Comment: Campu s: M Result Comment: NOTE NEW NORMAL RANGE DUE TO REAGENT CHANGEPatients receiving either N-Acetylcysteine (NAC) orMetamizole prior to venipuncture, may have falsely depressedresults. Performed By: #### L 500.98269, L500.78901, L500.88417, L500.50130 ####[facility] AVQIVAOEWR3048 [place], [place] [address]Cl# [phone] Glucose [Mass/Vol] 106 mg/dL High 70-100 [facility] Comment on above: Order Comment: Campu s: M Result Comment: 70-1 00- Normal Fasting; 100-125 Impaired Fasting; greaterthan 126 on more than one result- Diabetes. ADA guidelines.Results may be falsely elevated after the administration ofSulfapyridine.Results may be falsely depressed after the administration ofSulfasalazine. Performed By: #### L 500.84168, L500.03567, L500.03165, L500.97886 ####[facility] SRYUHZIJPV4175 [place], [place] [address]Ae# [phone] Potassium [Moles/Vol] 4.1 mmol/L Normal 3.5-5.1 [facility] Comment on above: Order Comment: Campu s: M Performed By: #### L 500.50214, L500.15857, L500.58033, L500.15801 ####[facility] IVDPKHPMRG9712 [place], [place] [address]Jj# [phone] Sodium [Moles/Vol] 131 mmol/L Low 136-145 [facility] Comment on above: Order Comment: Campu s: M Performed By: #### L 500.06116, L500.11711, L500.59809, L500.15245 ####[facility] FTZRHTAGII4269 [place], [place] [address]Dy# [phone] Urea nitrogen [Mass/Vol] 9 mg/dL Normal 7-26 [facility] Comment on above: Order Comment: Campu s: M Performed By: #### L 500.65526, L500.12007, L500.04917, L500.27553 ####[facility] EHELRTSUZG2887 [place], [place] [address]Wk# [phone] Urea nitrogen/Creatinine [Mass ratio] 15 mg/mg Normal 15-24 [facility] Comment on above: Order Comment: Campu s: M Performed By: #### L 500.34982, L500.24349, L500.55240, L500.46603 ####[facility] AIBHQJBWWK2407 [place], [place] [address]Tp# [phone] CBCon 11-26-2021 Erythrocyte distribution width (RBC) [Ratio] 19.5 % High 11-14.5 [facility] Comment on above: Order Comment: Campu s: MMinimal Draw: Y Performed By: #### L 200.69640 ####[facility] [id number] [place] [address]Zc# [phone] Hematocrit (Bld) [Volume fraction] 26.7 % Low 41.0-53.0 [facility] Comment on above: Order Comment: Campu s: MMinimal Draw: Y Performed By: #### L 200.23135 ####[facility] [id number] [place], [place] [address]Xl# [phone] Hemoglobin (Bld) [Mass/Vol] 7.5 g/dL Low 13.5-17.5 [facility]: Order Comment: Campu s: MMinimal Draw: Y Performed By: #### L 200.90092 ####[facility] [id number] [place] [address]Gg# [phone] MCHC (RBC) [Mass/Vol] 28.1 g/dL Low 32.0-36.0 [facility] Comment on above: Order Comment: Campu s: MMinimal Draw: Y Performed By: #### L 200.25279 ####[address] [address]Db# [phone] MCV (RBC) [Entitic vol] 66.6 fL Low 80.0-99.0 [facility] Comment on above: Order Comment: Campu s: MMinimal Draw: Y Performed By: #### L 200.88876 ####[facility] [id number] [place] [address]87[address]Cr# [phone] Nucleated RBC/100 WBC (Bld) [Ratio] 0.0 % Normal Less than 1 [facility] Comment on above: Order Comment: Campu s: MMinimal Draw: Y Performed By: #### L 200.44116 ####[facility] [id number] [place] [address] 13446Ig# [phone] Platelet mean volume (Bld) [Entitic vol] 10.6 fL Normal 9.4-12.4 [facility] Comment on above: Order Comment: Campu s: MMinimal Draw: Y Performed By: #### L 200.97224 ####[facility] [id number] [place] [address]10[address]Wq# [phone] PLT 297 K/CU MM Normal 150-450 [facility] Comment on above: Order Comment: Campu s: MMinimal Draw: Y Result Comment: Conf irmed by slide estimate. Performed By: #### L 200.67256 ####[facility] YGOZWYHSCU2052 [place], [place] [address]Zi# [phone] RBC 4.01 M/CU MM Low 4.50-6.00 [facility] Comment on above: Order Comment: Campu s: MMinimal Draw: Y Performed By: #### L 200.60643 ####[facility] [id number] [place] [address] 65459Fm# [phone] WBC 19.5 K/CUMM High 4.5-11.0 [facility] Comment on above: Order Comment: Campu s: MMinimal Draw: Y Performed By: #### L 200.37885 ####[address] [address]Ky# [phone] GFR ESTon 11-26-2021 IF AMER Greater than 60 Normal [facility] Comment on above: Order Comment: Campu s: M Performed By: #### L 500.12318, L500.74782, L500.91112, L500.36293 ####[facility] [address]ZQDYQXCZP[address] [place] [address] 57683Qh# [phone] IF non-AFR AMER Greater than 60 Normal [facility] Comment on above: Order Comment: Campu s: M Performed By: #### L 500.42853, L500.15838, L500.11878, L500.78947 ####[facility] TZXLILMNYI1567 [place], [place] [address]Au# [phone] MAGNESIUMon 11-26-2021 Magnesium [Mass/Vol] 1.8 mg/dL Normal 1.6-2.6 [facility] Comment on above: Order Comment: Campu s: M Performed By: #### L 500.53854, L500.37817, L500.98617, L500.33378 ####[facility] CGAOQERYRP[address] [place] [address]Kx# [phone] PBNP TESTon 11-26-2021 Natriuretic peptide B (Bld) [Mass/Vol] 7272 pg/mL High 0-125 [facility] Comment on above: Order Comment: Alan peres: Rosemary Result Comment: NT-p roBNP results of less than 300 pg/ml likely rules outacute congestive heart failure with 99% predictive value.NOTE: These cuttoff points are suggested for ACUTE CHFDIAGNOSIS onlyLess than 50 years Greater than 450 pg/ml50-75 years Greater than 900 pg/mlGreater than 75 years Greater than 1800 pg/mlNOTE NEW NORMAL RANGE Performed By: #### L 500.86302 ####[facility] [id number] [place], [place] [address]Nb# [phone] PROG IMSon 11-26-2021 PROG IMS Normal [facility] Progress Note-Hospitalist Normal [facility] PTTon 11-26-2021 aPTT Coag (Bld) [Time] 31.4 s Normal 22.0-31.5 [facility] Comment on above: Order Comment: Alan peres: Rosemary Result Comment: Ther apeutic Heparin Reference Range: High Dose: 46-75 seconds (DVT/PE) Low Dose: 39-60 seconds (Acute Coronary Syndrome)For low molecular weight heparin or danaparoid, monitoringis often NOT necessary, but the heparin assay, Xa inhibitionassay (send-out) may be used in certain circumstances, asthe PTT is generally insensitive to the effect of theseagents. Direct thrombin inhibitors are becoming more widelyutilized and these drugs are often monitored using the PTT. Performed By: #### L 300.87716 ####[facility] [id number] [place], [place] [address]Hv# [phone] aPTT Coag (Bld) [Time] 30.8 s Normal 22.0-31.5 [facility] Comment on above: Order Comment: Alan peres: Rosemary: HEPARIN DRIP Result Comment: Ther apeutic Heparin Reference Range: High Dose: 46-75 seconds (DVT/PE) Low Dose: 39-60 seconds (Acute Coronary Syndrome)For low molecular weight heparin or danaparoid, monitoringis often NOT necessary, but the heparin assay, Xa inhibitionassay (send-out) may be used in certain circumstances, asthe PTT is generally insensitive to the effect of theseagents. Direct thrombin inhibitors are becoming more widelyutilized and these drugs are often monitored using the PTT. Performed By: #### L 300.33016 ####[facility] [id number] [place], [place] [address]Si# [phone] aPTT Coag (Bld) [Time] 31.3 s Normal 22.0-31.5 [facility] [place] Comment on above: Order Comment: Alan peres: M: HEPARIN DRIP Result Comment: Ther apeutic Heparin Reference Range: High Dose: 46-75 seconds (DVT/PE) Low Dose: 39-60 seconds (Acute Coronary Syndrome)For low molecular weight heparin or danaparoid, monitoringis often NOT necessary, but the heparin assay, Xa inhibitionassay (send-out) may be used in certain circumstances, asthe PTT is generally insensitive to the effect of theseagents. Direct thrombin inhibitors are becoming more widelyutilized and these drugs are often monitored using the PTT. Performed By: #### L 300.95785 ####[address] [address]In# [phone] TROPONIN Ion 11-26-2021 TROPONIN I 621.0 pg/mL Critically high 0-54 [facility] Comment on above: Order Comment: Alan peres: Rosemary Result Comment: Prev ious Critical within one week. Critical Result(s)verified at: 06:00:34 on 11/26/2021 by: Elaine Mejia NEW NORMAL RANGE DUE TO REAGENT CHANGEThis assay uses different antibodies than our current assay,and assays, even by the same consulting marine engineer may recognizedifferent regions of the antibody and cannot be usedinterchangeably. Expect results of this assay to run higherthan the previous assay. Performed By: #### L 550.38328 ####[facility] SQLAYVSDJS8540 [place], [place] [address]Dp# [phone] TROPONIN I 852.4 pg/mL Critically high 0-54 [facility] Comment on above: Order Comment: Alan peres: Rosemary Result Comment: Prev ious Critical within one week. Critical Result(s)verified at: 23:31:13 on 11/25/2021 by: Irasema Landon NEW NORMAL RANGE DUE TO REAGENT CHANGEThis assay uses different antibodies than our current assay,and assays, even by the same consulting marine engineer may recognizedifferent regions of the antibody and cannot be usedinterchangeably. Expect results of this assay to run higherthan the previous assay. Performed By: #### L 550.56409 ####[facility] WBHAYSLKON8572 [place], [place] [address]Fu# [phone] TSHon 11-26-2021 TSH 4.010 UIU/ML High 0.358-3.740 [facility] Comment on above: Order Comment: Campu s: M Result Comment: 3rd generation ultra sensitive TSH Performed By: #### L 500.41151, L500.79217, L500.95528, L500.23340 ####[address] [address]Bk# [phone] BMPon 11-25-2021 Anion gap [Moles/Vol] 4 mmol/L Low 5-16 [facility] Comment on above: Order Comment: Campu s: M Performed By: #### L 500.53961, L500.99569, L500.90022, L500.22365 ####[facility] [id number] [place], [place] [address]Kh# [phone] Calcium [Mass/Vol] 7.9 mg/dL Low 8.5-10.5 [facility] Comment on above: Order Comment: Campu s: M Result Comment: NOTE NEW NORMAL RANGE DUE TO REAGENT CHANGE Performed By: #### L 500.07402, L500.56850, L500.47474, L500.29094 ####[facility] BDSVZMJGVN1824 [place], [place] [address]Yo# [phone] Chloride [Moles/Vol] 106 mmol/L Normal 98-107 [facility] Comment [facility]: Order Comment: Campu s: M Performed By: #### L 500.89284, L500.41752, L500.42233, L500.94953 ####[facility] [id number] [place], [place] [address]Pr# [phone] CO2 [Moles/Vol] 26.0 mmol/L Normal 21-32 [facility] Comment on above: Order Comment: Campu s: M Performed By: #### L 500.33257, L500.92368, L500.57647, L500.66160 ####[facility] JPFUDBWHCP6368 [place], [place] [address]Eo# [phone] Creatinine [Mass/Vol] 0.53 mg/dL Normal 0.5-1.4 [facility] Comment on above: Order Comment: Campu s: M Result Comment: NOTE NEW NORMAL RANGE DUE TO REAGENT CHANGEPatients receiving either N-Acetylcysteine (NAC) orMetamizole prior to venipuncture, may have falsely depressedresults. Performed By: #### L 500.14297, L500.13404, L500.70534, L500.33286 ####[facility] ZXULSHRWHC1813 [place], [place] [address]Ko# [phone] Glucose [Mass/Vol] 99 mg/dL Normal 70-100 [facility] Comment on above: Order Comment: Campu s: M Result Comment: 70-1 00- Normal Fasting; 100-125 Impaired Fasting; greaterthan 126 on more than one result- Diabetes. ADA guidelines.Results may be falsely elevated after the administration ofSulfapyridine.Results may be falsely depressed after the administration ofSulfasalazine. Performed By: #### L 500.49067, L500.96793, L500.73238, L500.05560 ####[facility] YJLGRXLZUK8218 [place], [place] [address]Ji# [phone] Potassium [Moles/Vol] 3.6 mmol/L Normal 3.5-5.1 [facility] Comment on above: Order Comment: Campu s: M Performed By: #### L 500.19327, L500.39905, L500.40380, L500.19599 ####[facility] TNPRFYAIIQ0789 [place], [place] [address]Jk# [phone] Sodium [Moles/Vol] 136 mmol/L Normal 136-145 [facility] Comment on above: Order Comment: Campu s: M Performed By: #### L 500.83045, L500.26331, L500.40696, L500.86153 ####[facility] TXTOSYTFBC5024 [place], [place] [address]Dp# [phone] Urea nitrogen [Mass/Vol] 7 mg/dL Normal 7-26 [facility] Comment on above: Order Comment: Campu s: M Performed By: #### L 500.07024, L500.97991, L500.92342, L500.28437 ####[facility] [id number] [place], [place] [address]Ld# [phone] Urea nitrogen/Creatinine [Mass ratio] 13 mg/mg Low 15-24 [facility] Comment on above: Order Comment: Campu s: M Performed By: #### L 500.36301, L500.68265, L500.98687, L500.47144 ####[facility] RETGLVGUOF1569 [place], [place] [address]Ia# [phone] CBCon 11-25-2021 Erythrocyte distribution width (RBC) [Ratio] 19.9 % High 11-14.5 [facility] Comment on above: Order Comment: Campu s: MMinimal Draw: Y Performed By: #### L 200.88653 ####[facility] [id number] [place] [address]Sz# [phone] Hematocrit (Bld) [Volume fraction] 31.2 % Low 41.0-53.0 [facility] Comment on above: Order Comment: Campu s: MMinimal Draw: Y Performed By: #### L 200.67915 ####[facility] [address]FEM[address]WY[address] [place] [address]Od# [phone] Hemoglobin (Bld) [Mass/Vol] 8.8 g/dL Low 13.5-17.5 [facility] Comment on above: Order Comment: Campu s: MMinimal Draw: Y Performed By: #### L 200.94558 ####[facility] YCVSHBPWLO[address] [place] [address]Gm# [phone] MCHC (RBC) [Mass/Vol] 28.2 g/dL Low 32.0-36.0 [facility] Comment on above: Order Comment: Campu s: MMinimal Draw: Y Performed By: #### L 200.54538 ####[facility] EMXUVHECMT[address] [place] [address]Ol# [phone] MCV (RBC) [Entitic vol] 68.0 fL Low 80.0-99.0 [facility] Comment on above: Order Comment: Campu s: MMinimal Draw: Y Performed By: #### L 200.09628 ####[address] [address]Ys# [phone] Nucleated RBC/100 WBC (Bld) [Ratio] 0.1 % Normal Less than 1 [facility] Comment on above: Order Comment: Campu s: MMinimal Draw: Y Performed By: #### L 200.49246 ####[facility] [id number] [place] [address]Md# [phone] Platelet mean volume (Bld) [Entitic vol] 10.4 fL Normal 9.4-12.4 [facility] Comment on above: Order Comment: Campu s: MMinimal Draw: Y Performed By: #### L 200.01167 ####[facility] GCIPLUOAOA[address] [place] [address]Xe# [phone] PLT 314 K/CU MM Normal 150-450 [facility] Comment on above: Order Comment: Campu s: MMinimal Draw: Y Performed By: #### L 200.15837 ####[facility] [id number] [place] [address]Jk# [phone] RBC 4.59 M/CU MM Normal 4.50-6.00 [facility] Comment on above: Order Comment: Campu s: MMinimal Draw: Y Performed By: #### L 200.69028 ####[facility] IJPSDRXTXP[address] [place] [address] 90[address]Ss# [phone] WBC 26.4 K/CUMM High 4.5-11.0 [facility] Comment on above: Order Comment: Campu s: MMinimal Draw: Y Performed By: #### L 200.57994 ####[facility] NCHEDCAFLN[address] [place] [address]Qd# [phone] CBC W/DIFFon 11-25-2021 ANISO 1+ Normal [facility] Comment on above: Order Comment: Campu s: M Performed By: #### L 200.73085 ####[address] [address]Pn# [phone] BAND ABS 0.94 K/CU MM Normal [facility] Comment on above: Order Comment: Campu s: M Performed By: #### L 200.20230 ####[address] [address]Ju# [phone] Band form neutrophils/100 WBC (Bld) 7.0 % Normal 0-7 [facility] Comment on above: Order Comment: Campu s: M Performed By: #### L 200.91265 ####[facility] [id number] [place] [address]Jl# [phone] EOS ABS 0.13 K/CU MM Normal 0-0.5 [facility] Comment on above: Order Comment: Campu s: M Performed By: #### L 200.18195 ####[facility] MYGEVLZFFA[address] [place] [address]Aj# [phone] Eosinophils/100 WBC (Bld) 1.0 % Normal 0-5 [facility] Comment on above: Order Comment: Campu s: M Performed By: #### L 200.28681 ####[facility] WWZOSWKHZY[address] [place] [address]Wm# [phone] HYPO 3+ Normal [facility] Comment on above: Order Comment: Campu s: M Performed By: #### L 200.10942 ####[facility] QQXMJNWLRC8387 [place], [place] [address]Gt# [phone] LYMPH ABS 8.58 K/CU MM High 0.9-4.4 [facility] Comment [facility] above: Order Comment: Campu s: M Performed By: #### L 200.34426 ####[facility] [id number] [place], [place] [address]Ph# [phone] Lymphocytes/100 WBC (Bld) 64.0 % High 20-40 [facility] Comment on above: Order Comment: Campu s: M Performed By: #### L 200.54346 ####[facility] HTBQBQCIVV[address] [place], [place] [address]Ph# [phone] MICRO 2+ Normal [facility] Comment on above: Order Comment: Campu s: M Performed By: #### L 200.12604 ####[facility] V[address]BGKHHMQ[address] [place], [place] [address]Ph# [phone] MONO ABS 0.13 K/CU MM Normal 0.1-1.1 [facility] Comment on above: Order Comment: Campu s: M Performed By: #### L 200.11308 ####[facility] MWAVTMISVX[address] [place], [place] [address]Ph# [phone] Monocytes/100 WBC (Bld) 1.0 % Low 2-10 [facility] Comment on above: Order Comment: Campu s: M Performed By: #### L 200.77061 ####[facility] LVGVALSMOA[address] [place], [place] [address]Ph# [phone] NEUTROPHIL ABS 3.62 K/CU MM Normal 2.0-8.3 [facility] Comment on above: Order Comment: Campu s: M Performed By: #### L 200.33703 ####[facility] ADMMIOCOAL0810 [place], [place] [address]Fd# [phone] Neutrophils/100 WBC (Bld) 27.0 % Low 45-75 [facility] Comment on above: Order Comment: Campu s: M Performed By: #### L 200.74428 ####[facility] WCKPROFNXL5144 [place], [place] [address]Zf# [phone] OVALOCYTES 1+ Normal [facility] Comment on above: Order Comment: Campu s: M Performed By: #### L 200.54857 ####[facility] [id number] [place] [address] 47[address]Ft# [phone] PLT EST ADEQUATE Normal [facility] Comment on above: Order Comment: Campu s: M Performed By: #### L 200.37958 ####[facility] [id number] [place] [address]Jf# [phone] PLT MORPH LARGE FORMS NOTED Normal [facility] Comment on above: Order Comment: Campu s: M Performed By: #### L 200.61347 ####[facility] [id number] [place] [address]Gm# [phone] POIK 2+ Normal [facility] Comment on above: Order Comment: Campu s: M Performed By: #### L 200.20618 ####[facility] QTFLBSNXAV[address] [place] [address]Qm# [phone] POLY 1+ Normal [facility] Comment on above: Order Comment: Campu s: M Performed By: #### L 200.39051 ####[facility] WKFMEYQWLS8445 [place], [place] [address]Na# [phone] SCHISTOCYTES 1+ Normal [facility] Comment on above: Order Comment: Campu s: M Performed By: #### L 200.57485 ####[facility] LIGZBNEBRN8185 [place], [place] [address]Jc# [phone] Erythrocyte distribution width (RBC) [Ratio] 19.5 % High 11-14.5 [facility] Comment on above: Order Comment: Campu s: M Performed By: #### L 200.62745 ####[facility] TCTXMWSUWX[address] [place] [address]Vh# [phone] Hematocrit (Bld) [Volume fraction] 27.3 % Low 41.0-53.0 [facility] Comment on above: Order Comment: Campu s: M Performed By: #### L 200.49929 ####[address] [address]Sj# [phone] Hemoglobin (Bld) [Mass/Vol] 7.7 g/dL Low 13.5-17.5 [facility] Comment on above: Order Comment: Campu s: M Performed By: #### L 200.75808 ####[address] [address]Zk# [phone] MCHC (RBC) [Mass/Vol] 28.2 g/dL Low 32.0-36.0 [facility] Comment on above: Order Comment: Campu s: M Performed By: #### L 200.56959 ####[facility] QWSWRMQFUC[address] [place] [address]Yr# [phone] MCV (RBC) [Entitic vol] 67.2 fL Low 80.0-99.0 [facility] Comment on above: Order Comment: Campu s: M Performed By: #### L 200.18025 ####[facility] [id number] [place] [address] 68[address]Pk# [phone] Nucleated RBC/100 WBC (Bld) [Ratio] 0.0 % Normal Less than 1 [facility] Comment on above: Order Comment: Campu s: M Performed By: #### L 200.67474 ####[facility] APHYYCOZPA[address] [place] [address]Ae# [phone] Platelet mean volume (Bld) [Entitic vol] 10.0 fL Normal 9.4-12.4 [facility] Comment on above: Order Comment: Campu s: M Performed By: #### L 200.53952 ####[facility] [id number] [place], [place] [address]Vl# [phone] PLT 219 K/CU MM Normal 150-450 [facility] Comment on above: Order Comment: Campu s: M Performed By: #### L 200.23797 ####[facility] SJFCWCLXIB8562 [place], [place] [address]Dk# [phone] RBC 4.06 M/CU MM Low 4.50-6.00 [facility] Comment on above: Order Comment: Campu s: M Performed By: #### L 200.11074 ####[facility] HPZDNULQFI8279 [place], [place] [address]Lg# [phone] WBC 13.4 K/CUMM High 4.5-11.0 [facility] Comment on above: Order Comment: Campu s: M Performed By: #### L 200.31948 ####[facility] WEPJCHQRNF7912 [place], [place] [address]Dq# [phone] CONS.Martha 11-25-2021 CONS.CARD Normal [facility] Consultation-Cardiolog y Normal [facility] D-DIMERon 11-25-2021 D-DIMER 1680.0 ng/mlFEU High 0-590 [facility] Comment on above: Order Comment: Martinu s: M Result Comment: This test has been validated for the exclusion of Deep VeinThrombosis and Pulmonary Embolism, with a cut-off of450 ng/ml/DDU. Results should be interpreted in conjunctionwith the patient's medical history, clinical presentationand other findings. D-Dimer is elevated in DVT, PE and DIC.However, an increased D-Dimer can be seen in other clinicalconditions and should not be used as a confirmatorydiagnostic marker. Performed By: #### L 300.55837 ####[facility] YMVWKAWCKC2158 [place], [place] [address]Ik# [phone] GFR ESTon 11-25-2021 IF AMER Greater than 60 Normal [facility] Comment on above: Order Comment: Campu s: M Performed By: #### L 500.71425, L500.14000, L500.27938, L500.34107 ####[facility] SXSZDDWPQD7698 [place], [place] [address]Em# [phone] IF non-AFR AMER Greater than 60 Normal [facility] Comment on above: Order Comment: Campu s: M Performed By: #### L 500.83449, L500.70424, L500.56101, L500.11000 ####[facility] RDHIASBYQE6476 [place], [place] [address]Kv# [phone] MAGNESIUMon 11-25-2021 Magnesium [Mass/Vol] 1.6 mg/dL Normal 1.6-2.6 [facility] Comment on above: Order Comment: Campu s: M Performed By: #### L 500.79540, L500.36725, L500.70792, L500.00294 ####[facility] [address]QUUW[address] [place] [address]Fo# [phone] PHOSon 11-25-2021 Phosphate [Mass/Vol] 2.60 mg/dL Normal 2.5-4.9 [facility] Comment on above: Order Comment: Campu s: M Result Comment: Elev ated m-protein (paraprotein) levels in the serum may beexhibited in patients with monoclonal gammopathies, causingfalsely elevated inorganic phosphorus results. Performed By: #### L 500.96342, L500.46137, L500.69017, L500.04481 ####[facility] NKGHECEXWE4930 [place], [place] [address]Qa# [phone] PROG IMSon 11-25-2021 PROG IMS Normal [facility] PROG.NOTEon 11-25-2021 PROG.NOTE Normal [facility] Progress Note-Physician Normal [facility] PTon 11-25-2021 INR Coag (PPP) [Relative time] 1.06 {INR} Normal 0.9-1.1 [facility] Comment on above: Order Comment: Campu s: MMinimal Draw: Y Result Comment: Vicente mmended PT INR therapeutic range for group home andprophylactic therapy is 2.0 - 3.0. For heart valve andshunt patients the range is 2.5 - 3.5. Performed By: #### L 300.52318, L300.30630 ####[facility] JGWCUMRHUY3199 [place], [place] [address]Gk# [phone] PTS 11.5 SECONDS Normal 9.5-12.0 [facility] Comment on above: Order Comment: Alan peres: MMinimal Draw: Y Performed By: #### L 300.96089, L300.90311 ####[facility] [id number] [place], [place] [address]Jq# [phone] PTTon 11-25-2021 aPTT Coag (Bld) [Time] 32.3 s High 22.0-31.5 [facility] Comment on above: Order Comment: Alan peres: M Result Comment: Ther apeutic Heparin Reference Range: High Dose: 46-75 seconds (DVT/PE) Low Dose: 39-60 seconds (Acute Coronary Syndrome)For low molecular weight heparin or danaparoid, monitoringis often NOT necessary, but the heparin assay, Xa inhibitionassay (send-out) may be used in certain circumstances, asthe PTT is generally insensitive to the effect of theseagents. Direct thrombin inhibitors are becoming more widelyutilized and these drugs are often monitored using the PTT. Performed By: #### L 300.42026 ####[facility] [id number] [place], [place] [address]Li# [phone] aPTT Coag (Bld) [Time] 28.5 s Normal 22.0-31.5 [facility] [place] Comment on above: Order Comment: Alan peres: MMinimal Draw: Y Result Comment: Ther apeutic Heparin Reference Range: High Dose: 46-75 seconds (DVT/PE) Low Dose: 39-60 seconds (Acute Coronary Syndrome)For low molecular weight heparin or danaparoid, monitoringis often NOT necessary, but the heparin assay, Xa inhibitionassay (send-out) may be used in certain circumstances, asthe PTT is generally insensitive to the effect of theseagents. Direct thrombin inhibitors are becoming more widelyutilized and these drugs are often monitored using the PTT. Performed By: #### L 300.03080, L300.24557 ####[facility] VTNVNKEDKL2491 [place], [place] [address]Sp# [phone] TROPONIN Ion 11-25-2021 TROPONIN I 302.2 pg/mL Critically high 0-54 [facility] Comment on above: Order Comment: Campu s: MUnable to Obtain Result Comment: Crit ical Result(s) Called at: 11:42:56 on 11/25/2021 by sebas.Called to and read back by HECTOR MERRILL RNNOTE NEW NORMAL RANGE DUE TO REAGENT CHANGEThis assay uses different antibodies than our current assay,and assays, even by the same consulting marine engineer may recognizedifferent regions of the antibody and cannot be usedinterchangeably. Expect results of this assay to run higherthan the previous assay. Performed By: #### L 550.80954 ####[facility] BSUXAWBDKC4469 [place], [place] [address]Xq# [phone] BMPon 11-24-2021 Anion gap [Moles/Vol] 7 mmol/L Normal 5-16 [facility] Comment on above: Order Comment: Campu s: M Performed By: #### L 500.10985, L500.41519, L500.48929 ####[facility] CPZQUUWEPS1387 [place], [place] [address]Hh# [phone] Calcium [Mass/Vol] 7.8 mg/dL Low 8.5-10.5 [facility] Comment on above: Order Comment: Campu s: M Result Comment: NOTE NEW NORMAL RANGE DUE TO REAGENT CHANGE Performed By: #### L 500.06262, L500.07439, L500.28410 ####[facility] KWRAANEJKH4901 [place], [place] [address]Jh# [phone] Chloride [Moles/Vol] 103 mmol/L Normal 98-107 [facility] Comment on above: Order Comment: Campu s: M Performed By: #### L 500.19496, L500.43209, L500.64379 ####[facility] MTQKUAEZVC8060 [place], [place] [address]Jj# [phone] CO2 [Moles/Vol] 25.0 mmol/L Normal 21-32 [facility] Comment on above: Order Comment: Campu s: M Performed By: #### L 500.06532, L500.11393, L500.81609 ####[facility] VLYTWPWYXT2574 [place], [place] [address]Nw# [phone] Creatinine [Mass/Vol] 0.54 mg/dL Normal 0.5-1.4 [facility] Comment on above: Order Comment: Campu s: M Result Comment: NOTE NEW NORMAL RANGE DUE TO REAGENT CHANGEPatients receiving either N-Acetylcysteine (NAC) orMetamizole prior to venipuncture, may have falsely depressedresults. Performed By: #### L 500.42163, L500.43474, L500.57196 ####[facility] DZVQFKIWPH6564 [place], [place] [address]Fg# [phone] Glucose [Mass/Vol] 126 mg/dL High 70-100 [facility] Comment on above: Order Comment: Campu s: M Result Comment: 70-1 00- Normal Fasting; 100-125 Impaired Fasting; greaterthan 126 on more than one result- Diabetes. ADA guidelines.Results may be falsely elevated after the administration ofSulfapyridine.Results may be falsely depressed after the administration ofSulfasalazine. Performed By: #### L 500.69051, L500.41084, L500.73779 ####[facility] DZEDIWIQUC9786 [place], [place] [address]Al# [phone] Potassium [Moles/Vol] 3.3 mmol/L Low 3.5-5.1 [facility] Comment on above: Order Comment: Campu s: M Performed By: #### L 500.32702, L500.41842, L500.50274 ####[facility] CVLEKBREUM6606 [place], [place] [address]Jm# [phone] Sodium [Moles/Vol] 135 mmol/L Low 136-145 [facility] Comment on above: Order Comment: Campu s: M Performed By: #### L 500.55633, L500.19625, L500.30841 ####[facility] NYCUNFJODQ6319 [place], [place] [address]Gn# [phone] Urea nitrogen [Mass/Vol] 7 mg/dL Normal - [facility] Comment on above: Order Comment: Campu s: M Performed By: #### L 500.76176, L500.31453, L500.72943 ####[facility] GCDENLIWLU6944 [place], [place] [address]Ew# [phone] Urea nitrogen/Creatinine [Mass ratio] 13 mg/mg Low 15-24 [facility] Comment on above: Order Comment: Campu s: M Performed By: #### L 500.25823, L500.49230, L500.16681 ####[facility] BHEHPFNXAI[address] [place] [address]Au# [phone] CBC W/DIFFon 11-24-2021 ANISO 1+ Normal [facility] Comment on above: Order Comment: Campu s: M Performed By: #### L 200.17706, [id number] ####[facility] ZRAIDFSHXC3778 [place], [place] [address]Ie# [phone] EOS ABS 0.11 K/CU MM Normal 0-0.5 [facility] Comment on above: Order Comment: Campu s: M Performed By: #### L 200.66279, L200.64174 ####[facility] KLJZHGNUTV[address] [place] [address]Nf# [phone] Eosinophils/100 WBC (Bld) 1.0 % Normal 0-5 [facility] Comment on above: Order Comment: Campu s: M Performed By: #### L 200.02069, L200.12286 ####[facility] XPOUBJEBUH[address] [place] [address]Yf# [phone] Erythrocyte distribution width (RBC) [Ratio] 19.8 % High 11-14.5 [facility] Comment on above: Order Comment: Campu s: M Performed By: #### L 200.96237, L200.25622 ####[facility] HEPEYOCRBR9415 [place], [place] [address]Wv# [phone] Hematocrit (Bld) [Volume fraction] 26.0 % Low 41.0-53.0 [facility] Comment on above: Order Comment: Campu s: M Performed By: #### L 200.94137, L200.52699 ####[facility] QGMDFUSZGK4617 [place], [place] [address]Ye# [phone] Hemoglobin (Bld) [Mass/Vol] 7.5 g/dL Low 13.5-17.5 [facility] Comment on above: Order Comment: Campu s: M Performed By: #### L 200.21203, L2.71407 ####[facility] UHWWHCPJMH[address] [place] [address]Uy# [phone] HYPO 3+ Normal [facility] Comment on above: Order Comment: Campu s: M Performed By: #### L 200.62574, L2.84145 ####[facility] OHDYULGXKZ0318 [place], [place] [address]Hu# [phone] LYMPH ABS 9.27 K/CU MM High 0.9-4.4 [facility] Comment on above: Order Comment: Campu s: M Performed By: #### L 200.61586, L200.50354 ####[facility] SDGYWCTDMT2196 [place], [place] [address]Cj# [phone] Lymphocytes/100 WBC (Bld) 82.0 % High 20-40 [facility] Comment on above: Order Comment: Campu s: M Performed By: #### L 200.56805, L200.07891 ####[facility] CWYTVEMDBK5286 [place], [place] [address]Qu# [phone] MCHC (RBC) [Mass/Vol] 28.8 g/dL Low 32.0-36.0 [facility] Comment on above: Order Comment: Campu s: M Performed By: #### L 200.49898, L200.13774 ####[facility] AOQIRUXGEU8153 [place], [place] [address]Mm# [phone] MCV (RBC) [Entitic vol] 66.8 fL Low 80.0-99.0 [facility] Comment on above: Order Comment: Campu s: M Performed By: #### L 200.39308, L200.08509 ####[facility] GNSBCOLKRD9224 [place], [place] [address]Zm# [phone] MICRO 2+ Normal [facility] Comment on above: Order Comment: Campu s: M Performed By: #### L 200.19025, L2.21148 ####[facility] KPFQSAPJRE9860 [place] [address]Ph# [phone] MONO ABS 0.34 K/CU MM Normal 0.1-1.1 [facility] Comment on above: Order Comment: Campu s: M Performed By: #### L 200.13353, L2.48455 ####[facility] TBOPDFTCYX1692 [place], [place] [address]Cf# [phone] Monocytes/100 WBC (Bld) 3.0 % Normal 2-10 [facility] Comment on above: Order Comment: Campu s: M Performed By: #### L 200.50741, L200.68085 ####[facility] DMZOFEAFQZ3692 [place], [place] [address]Uy# [phone] NEUTROPHIL ABS 1.58 K/CU MM Low 2.0-8.3 [facility] Comment on above: Order Comment: Campu s: M Performed By: #### L 200.12048, L200.94728 ####[facility] ITRXAFQOTE0420 [place] [address]Ph# [phone] Neutrophils/100 WBC (Bld) 14.0 % Low 45-75 [facility] Comment on above: Order Comment: Campu s: M Performed By: #### L 200.67882, L200.92795 ####[facility] SIXLCNMEFN7095 [place], [place] [address]Sr# [phone] Nucleated RBC/100 WBC (Bld) [Ratio] 0.0 % Normal Less than 1 [facility] Comment on above: Order Comment: Campu s: M Performed By: #### L 200.51460, L2.74204 ####[facility] NPEHZCLYSK1624 [place], [place] [address]Co# [phone] OVALOCYTES 1+ Normal [facility] Comment on above: Order Comment: Campu s: M Performed By: #### L 200.83540, L2.74539 ####[facility] NLBRKWSBOO5194 [place], [place] [address]Kw# [phone] Platelet mean volume (Bld) [Entitic vol] 10.4 fL Normal 9.4-12.4 [facility] Comment on above: Order Comment: Campu s: M Performed By: #### L 200.40643, L2.13976 ####[facility] EFRMTIMTHZ4447 [place], [place] [address]Jx# [phone] PLT 214 K/CU MM Normal 150-450 [facility] Comment on above: Order Comment: Campu s: M Result Comment: Conf irmed by slide estimate. Performed By: #### L 200.89521, L200.37799 ####[facility] WKMFRWFGWL8454 [place], [place] [address]Bt# [phone] PLT EST ADEQUATE Normal [facility] Comment on above: Order Comment: Campu s: M Performed By: #### L 200.23166, L200.45979 ####[facility] HAKALEKXCC3359 [place], [place] [address]Ns# [phone] PLT MORPH LARGE FORMS NOTED Normal [facility] Comment on above: Order Comment: Campu s: M Performed By: #### L 200.00066, L200.98620 ####[facility] HWJWAMCHWR5851 [place], [place] [address]Lu# [phone] POIK 2+ Normal [facility] Comment on above: Order Comment: Campu s: M Performed By: #### L 200.76354, L200.37336 ####[facility] GXTDAMHXGI7786 [place], [place] [address]Dy# [phone] POLY 1+ Normal [facility] Comment on above: Order Comment: Campu s: M Performed By: #### L 200.00800, L200.42978 ####[facility] YGRQPRQVCW7113 [place], [place] [address]Yi# [phone] RBC 3.89 M/CU MM Low 4.50-6.00 [facility] Comment on above: Order Comment: Campu s: M Performed By: #### L 200.84100, L2.89643 ####[facility] ZADCPMMAGH8139 [place], [place] [address]Hc# [phone] WBC 11.3 K/CUMM High 4.5-11.0 [facility] Comment on above: Order Comment: Campu s: M Performed By: #### L 200.55668, L200.79976 ####[facility] PKQRBYLMSX[address] [place] [address]Ec# [phone] GFR ESTon 11-24-2021 IF AMER Greater than 60 Normal [facility] Comment on above: Order Comment: Campu s: M Performed By: #### L 500.10849, L500.71092, L500.90201 ####[facility] VMWRMCFHPI8291 [place], [place] [address]Xf# [phone] IF non-AFR AMER Greater than 60 Normal [facility] Comment on above: Order Comment: Campu s: M Performed By: #### L 500.30129, L500.40813, L500.72871 ####[facility] GKKTJXQZUW9183 [place], [place] [address]Fy# [phone] MAGNESIUMon 11-24-2021 Magnesium [Mass/Vol] 1.4 mg/dL Low 1.6-2.6 [facility] Comment on above: Order Comment: Campu s: M Performed By: #### L 500.54013, L500.41546, L500.79055 ####[facility] NRDVMJWUZE8007 [place], [place] [address]Nx# [phone] OTPNon 11-24-2021 OT Progress Note Normal [facility] OTPN Normal [facility] PROG IMSon 11-24-2021 PROG IMS Normal [facility] Progress Note-Hospitalist Normal [facility] PTPNon 11-24-2021 PT Progress Note Normal [facility] PTPN Normal [facility] SMEAR REVIEWon 11-24-2021 SMEAR REVIEW TNP Normal [facility] Comment on above: Order Comment: Campu s: M Result Comment: This CBC parameter(LYMPH ABS) was reviewed on 11/16/21 Performed By: #### L 200.22631, L200.76395 ####[facility] GPWIOHPRXL[address] [place] [address]Xl# [phone] BMPon 11-23-2021 Anion gap [Moles/Vol] 8 mmol/L Normal 5-16 [facility] Comment on above: Order Comment: Campu s: M Performed By: #### L 500.04975, L500.23644 ####[facility] LNMKEIAURT4730 [place], [place] [address]Vf# [phone] Calcium [Mass/Vol] 7.6 mg/dL Low 8.5-10.5 [facility] Comment on above: Order Comment: Campu s: M Result Comment: NOTE NEW NORMAL RANGE DUE TO REAGENT CHANGE Performed By: #### L 500.51493, L500.38474 ####[facility] UHMPZJWDLZ8992 [place], [place] [address]Be# [phone] Chloride [Moles/Vol] 100 mmol/L Normal 98-107 [facility] Comment on above: Order Comment: Campu s: M Performed By: #### L 500.80326, L500.45923 ####[facility] PNIRZNKEOU5466 [place], [place] [address]Bv# [phone] CO2 [Moles/Vol] 25.0 mmol/L Normal 21-32 [facility] Comment on above: Order Comment: Campu s: M Performed By: #### L 500.71005, L500.81119 ####[facility] FOYTRLLIDP2379 [place], [place] [address]It# [phone] Creatinine [Mass/Vol] 0.68 mg/dL Normal 0.5-1.4 [facility] Comment on above: Order Comment: Campu s: M Result Comment: NOTE NEW NORMAL RANGE DUE TO REAGENT CHANGEPatients receiving either N-Acetylcysteine (NAC) orMetamizole prior to venipuncture, may have falsely depressedresults. Performed By: #### L 500.39100, L500.60683 ####[facility] MFQBMWOXTG7967 [place], [place] [address]Zk# [phone] Glucose [Mass/Vol] 122 mg/dL High 70-100 [facility] Comment on above: Order Comment: Campu s: M Result Comment: 70-1 00- Normal Fasting; 100-125 Impaired Fasting; greaterthan 126 on more than one result- Diabetes. ADA guidelines.Results may be falsely elevated after the administration ofSulfapyridine.Results may be falsely depressed after the administration ofSulfasalazine. Performed By: #### L 500.93130, L500.31291 ####[facility] PFBFCYLQCN5899 [place], [place] [address]Zr# [phone] Potassium [Moles/Vol] 4.3 mmol/L Normal 3.5-5.1 [facility] Comment on above: Order Comment: Campu s: M Result Comment: Slig ht Hemolysis, Result may be affected. Performed By: #### L 500.76808, L500.79865 ####[facility] BXDMYXBYHV3664 [place], [place] [address]Ez# [phone] Sodium [Moles/Vol] 133 mmol/L Low 136-145 [facility] Comment on above: Order Comment: Campu s: M Performed By: #### L 500.60721, L500.82992 ####[facility] QKZPQKTBAG6914 [place], [place] [address]He# [phone] Urea nitrogen [Mass/Vol] 8 mg/dL Normal 7-26 [facility] Comment on above: Order Comment: Campu s: M Result Comment: Slig ht Hemolysis, Result may be affected. Performed By: #### L 500.52191, L500.76279 ####[facility] FZRZQGGJEH9133 [place], [place] [address]Kd# [phone] Urea nitrogen/Creatinine [Mass ratio] 12 mg/mg Low 15-24 [facility] Comment on above: Order Comment: Campu s: M Performed By: #### L 500.85236, L500.01737 ####[facility] [address]OIOFS[address] [place] [address]Vz# [phone] CBC W/DIFFon 11-23-2021 ACANTHO 1+ Normal [facility] Comment on above: Order Comment: Campu s: MQNS Performed By: #### L 200.33288 ####[facility] NMJZSFZQFE[address] [place] [address]Kh# [phone] ANISO 1+ Normal [facility] Comment on above: Order Comment: Campu s: MQNS Performed By: #### L 200.25202 ####[facility] UDHVKOCSDF5091 [place], [place] [address]Xo# [phone] BASO ABS 0.00 K/CU MM Normal 0-0.2 [facility] Comment on above: Order Comment: Campu s: MQNS Performed By: #### L 200.11420 ####[facility] [id number] [place] [address]Mk# [phone] Basophils/100 WBC (Bld) 0.2 % Normal 0-2 [facility] Comment on above: Order Comment: Campu s: MQNS Performed By: #### L 200.53678 ####[facility] VGLAQUGOHL0644 [place] [address]Ph# [phone] EOS ABS 0.00 K/CU MM Normal 0-0.5 [facility] Comment on above: Order Comment: Campu s: MQNS Performed By: #### L 200.43413 ####[facility] YXLSTMNVMO[address] [place], [place] [address]Ph# [phone] Eosinophils/100 WBC (Bld) 0.3 % Normal 0-5 [facility] Comment on above: Order Comment: Campu s: MQNS Performed By: #### L 200.63326 ####[place] [address]Ph# [phone] Erythrocyte distribution width (RBC) [Ratio] 19.5 % High 11-14.5 [facility] Comment on above: Order Comment: Campu s: MQNS Performed By: #### L 200.16427 ####[place] [address]Ph# [phone] Hematocrit (Bld) [Volume fraction] 27.1 % Low 41.0-53.0 [facility] Comment on above: Order Comment: Campu s: MQNS Performed By: #### L 200.16610 ####[facility] [id number] [place], [place] [address]Ph# [phone] Hemoglobin (Bld) [Mass/Vol] 7.7 g/dL Low 13.5-17.5 [facility] Comment on above: Order Comment: Campu s: MQNS Performed By: #### L 200.15585 ####[facility] ILRCONDXCI[address] [place], [place] [address]Ph# [phone] HYPO 3+ Normal [facility] Comment on above: Order Comment: Campu s: MQNS Performed By: #### L 200.74216 ####[facility] WSOXVYDAWL7131 [place], [place] [address]Mj# [phone] IMMATR GRAN ABS 0.10 K/CU MM Normal Less than 2 [facility] Comment on above: Order Comment: Martinu s: MQNS Performed By: #### L 200.64917 ####[facility] CPOOPKHHHF[address] [place], [place] [address]Ph# [phone] IMMATURE GRAN % 0.7 % Normal Less than 2 [facility] Comment on above: Order Comment: Martinu s: MQNS Performed By: #### L 200.70113 ####[facility] OVMZYYULAL[address] [place], [place] [address]Ph# [phone] LYMPH ABS 7.00 K/CU MM High 0.9-4.4 [facility] Comment on above: Order Comment: Alan s: MQNS Performed By: #### L 200.39289 ####[facility] IABCALPEJJ[address] [place], [place] [address]Ph# [phone] Lymphocytes/100 WBC (Bld) 67.1 % High 20-40 [facility] Comment on above: Order Comment: Alan s: MQNS Performed By: #### L 200.12353 ####[facility] ATDOIPPUVQ[address] [place], [place] [address]Ph# [phone] MCHC (RBC) [Mass/Vol] 28.4 g/dL Low 32.0-36.0 [facility] Comment on above: Order Comment: Martinu s: MQNS Performed By: #### L 200.93526 ####[facility] TPMRRLLGFP[address] [place], [place] [address]Ph# [phone] MCV (RBC) [Entitic vol] 66.7 fL Low 80.0-99.0 [facility] Comment on above: Order Comment: Alan s: MQNS Performed By: #### L 200.72840 ####[facility] [id number] [place], [place] [address]Ph# [phone] MICRO 2+ Normal [facility] Comment on above: Order Comment: Campu s: MQNS Performed By: #### L 200.28046 ####[facility] LIBZSKEGXW1469 [place] [address]Ph# [phone] MONO ABS 0.80 K/CU MM Normal 0.1-1.1 [facility] Comment on above: Order Comment: Campu s: MQNS Performed By: #### L 200.70275 ####[facility] [id number] [place], [place] [address]Ph# [phone] Monocytes/100 WBC (Bld) 8.1 % Normal 2-10 [facility] Comment on above: Order Comment: Campu s: MQNS Performed By: #### L 200.01912 ####[facility] SYAZODJJVV[address] [place], [place] [address]Ph# [phone] NEUTROPHIL ABS 2.50 K/CU MM Normal 2.0-8.3 [facility] Comment on above: Order Comment: Campu s: MQNS Performed By: #### L 200.20268 ####[facility] LYVPTKNGGJ[address] [place], [place] [address]Ph# [phone] Neutrophils/100 WBC (Bld) 23.6 % Low 45-75 [facility] Comment on above: Order Comment: Campu s: MQNS Performed By: #### L 200.51866 ####[facility] OZABQDHFVI[address] [place], [place] [address]Ph# [phone] Nucleated RBC/100 WBC (Bld) [Ratio] 0.0 % Normal Less than 1 [facility] Comment on above: Order Comment: Campu s: MQNS Performed By: #### L 200.56294 ####[facility] [id number] [place], [place] [address]Ph# [phone] OVALOCYTES 1+ Normal [facility] Comment on above: Order Comment: Campu s: MQNS Performed By: #### L 200.27281 ####[facility] ELXPABVVAZ[address] [place], [place] [address]Ph# [phone] Platelet mean volume (Bld) [Entitic vol] 10.7 fL Normal 9.4-12.4 [facility] Comment on above: Order Comment: Martinu s: MQNS Performed By: #### L 200.60622 ####[facility] XETPXGLPOK9328 [place], [place] [address]Ih# [phone] PLT 185 K/CU MM Normal 150-450 [facility] Comment on above: Order Comment: Martinu s: MQNS Performed By: #### L 200.41482 ####[facility] [id number] [place], [place] [address]Ph# [phone] PLT EST ADEQUATE Normal [facility] Comment on above: Order Comment: Martinu s: MQNS Performed By: #### L 200.77886 ####[facility] KSNWXUDBHX[address] [place], [place] [address]Ph# [phone] POIK 3+ Normal [facility] Comment on above: Order Comment: Martinu s: MQNS Performed By: #### L 200.09171 ####[facility] [id number] [place], [place] [id number]# [phone] POLY 1+ Normal [facility] Comment on above: Order Comment: Martinu s: MQNS Performed By: #### L 200.00618 ####[facility] [id number] [place], [place] [address]Qo# [phone] RBC 4.06 M/CU MM [facility] 4.50-6.00 [facility] Comment [facility]: Order Comment: Martinu s: MQNS Performed By: #### L 200.19520 ####[facility] [id number] [place] [address]Fg# [phone] SCHISTOCYTES 1+ Normal [facility] Comment on above: Order Comment: Martinu s: MQNS Performed By: #### L 200.45920 ####[facility] [id number] [place], [place] [id number]# [phone] WBC 10.4 K/CUMM Normal 4.5-11.0 [facility] Comment on above: Order Comment: Campu s: MQNS Performed By: #### L 200.85272 ####[facility] [id number] [place], [place] [address]Vo# [phone] CONS.PLASTon 11-23-2021 CONS.PLAST Normal [facility] CONSULTATION-PLASTIC SURGERY [facility]on 11-23-2021 IF AMER Greater than 60 [facility] Comment on above: Order Comment: Campu s: M Performed By: #### L 500.29418, L500.36473 ####[facility] [id number] [place], [place] [address]Re# [phone] IF non-AFR AMER Greater than 60 [facility] Comment on above: Order Comment: Campu s: M Performed By: #### L 500.74785, L500.68328 ####[facility] [id number] [place], [place] [address]Ax# [phone] PROG IMSon 11-23-2021 PROG IMS Normal [facility] Progress Note-Hospitalist Normal [facility] PROG.NOTEon 11-23-2021 PROG.NOTE Normal [facility] Progress Note-Physician Normal [facility] BMPon 11-22-2021 Anion gap [Moles/Vol] 3 mmol/L Low 5-16 [facility] Comment on above: Order Comment: Campu s: M Performed By: #### L 500.10812, L500.96821, L500.86856, L500.21819 ####[facility] HOZYHMUDKJ4673 [place], [place] [address]Ml# [phone] Calcium [Mass/Vol] 8.2 mg/dL Low 8.5-10.5 [facility] Comment on above: Order Comment: Campu s: M Result Comment: NOTE NEW NORMAL RANGE DUE TO REAGENT CHANGE Performed By: #### L 500.72843, L500.68456, L500.69873, L500.64360 ####[facility] CRHJJNTMNV2302 [place], [place] [address]Mo# [phone] Chloride [Moles/Vol] 104 mmol/L Normal 98-107 [facility] Comment [facility]: Order Comment: Campu s: M Performed By: #### L 500.11228, L500.08553, L500.11409, L500.18600 ####[facility] [id number] [place], [place] [address]Ar# [phone] CO2 [Moles/Vol] 26.0 mmol/L Normal 21-32 [facility] Comment on above: Order Comment: Campu s: M Performed By: #### L 500.15886, L500.77354, L500.30314, L500.36388 ####[facility] REQIOHBXFF7550 [place], [place] [address]He# [phone] Creatinine [Mass/Vol] 0.69 mg/dL Normal 0.5-1.4 [facility] Comment on above: Order Comment: Campu s: M Result Comment: NOTE NEW NORMAL RANGE DUE TO REAGENT CHANGEPatients receiving either N-Acetylcysteine (NAC) orMetamizole prior to venipuncture, may have falsely depressedresults. Performed By: #### L 500.97127, L500.13924, L500.09617, L500.49119 ####[facility] ZYTHOUDPTH7569 [place], [place] [address]Yk# [phone] Glucose [Mass/Vol] 102 mg/dL High 70-100 [facility] Comment on above: Order Comment: Campu s: M Result Comment: 70-1 00- Normal Fasting; 100-125 Impaired Fasting; greaterthan 126 on more than one result- Diabetes. ADA guidelines.Results may be falsely elevated after the administration ofSulfapyridine.Results may be falsely depressed after the administration ofSulfasalazine. Performed By: #### L 500.58057, L500.69457, L500.54599, L500.30067 ####[facility] GXJMWAJOOG7664 [place], [place] [address]Id# [phone] Potassium [Moles/Vol] 3.8 mmol/L Normal 3.5-5.1 [facility] Comment on above: Order Comment: Campu s: M Result Comment: Slig ht Hemolysis, Result may be affected. Performed By: #### L 500.51115, L500.46321, L500.20186, L500.98377 ####[facility] EQNTVCDTQI5895 [place], [place] [address]Ap# [phone] Sodium [Moles/Vol] 131 mmol/L Low 136-145 [facility] Comment on above: Order Comment: Campu s: M Performed By: #### L 500.15401, L500.72356, L500.47751, L500.57683 ####[facility] THQDBUFEKM8178 [place], [place] [address]Pg# [phone] Urea nitrogen [Mass/Vol] 8 mg/dL Normal 7-26 [facility] Comment on above: Order Comment: Campu s: M Performed By: #### L 500.68791, L500.26583, L500.05957, L500.36772 ####[facility] SFGPKWOWIF9144 [place], [place] [address]Ln# [phone] Urea nitrogen/Creatinine [Mass ratio] 12 mg/mg Low 15-24 [facility] Comment on above: Order Comment: Campu s: M Performed By: #### L 500.95999, L500.72112, L500.78949, L500.56957 ####[facility] WPIKKYOXRH0322 [place], [place] [address]Qh# [phone] Monse 11-22-2021 FERR 81.5 NG/ML Normal 24.0-388.0 [facility] Comment on above: Order Comment: Campu s: M Performed By: #### L 500.48735, L500.46710, L500.91716, L500.09559 ####[facility] RHEMZVIZNK1136 [place], [place] [address]Sa# [phone] GFR ESTon 11-22-2021 IF AMER Greater than 60 Normal [facility] Comment on above: Order Comment: Alan s: M Performed By: #### L 500.06677, L500.40496, L500.53810, L500.55207 ####[facility] ZVMFVOLLML1580 [place], [place] [address]Ww# [phone] IF non-AFR AMER Greater than 60 Normal [facility] Comment on above: Order Comment: Alan s: M Performed By: #### L 500.32356, L500.72321, L500.34511, L500.70631 ####[facility] QKHUWLBBSK4021 [place], [place] [address]Se# [phone] IRON PANELon 11-22-2021 Iron [Mass/Vol] 5 ug/dL Low 65-175 [facility] Comment on above: Order Comment: Alan s: M Result Comment: Ainsley ents treated with metal-binding drugs (e.g.deferoxamine)may have depressed iron values, as chelated iron may notproperly react in the Siemens iron assay. Performed By: #### L 500.64216, L500.18024, L500.12604, L500.58707 ####[facility] XRURPSZUQM3715 [place], [place] [address]Eo# [phone] IRON SAT 2 % Low 30-44 [facility] Comment on above: Order Comment: Alan s: M Performed By: #### L 500.99441, L500.37638, L500.54321, L500.97685 ####[facility] EJSEXCCPAO0593 [place], [place] [address]Hn# [phone] TIBC 203 UG/DL Low 221-481 [facility] Comment on above: Order Comment: Alan s: M Performed By: #### L 500.56944, L500.05406, L500.30073, L500.90561 ####[facility] LVBCQMCHJO6243 [place], [place] [address]Qk# [phone] OTPNon 11-22-2021 OT Progress Note Normal [facility] OTPN Normal [facility] PROG IMSon 11-22-2021 PROG IMS Normal [facility] Progress Note-Hospitalist Normal [facility] PTPNon 11-22-2021 PT Progress Note Normal [facility] PTPN Normal [facility] BLOOD CULTUREon 11-21-2021 Bacteria identified Cx Nom (Bld) NO GROWTH AFTER 5 DAYS Normal [facility] Comment on above: Order Comment: Campu s: M Performed By: #### M 050.63445 ####[facility] UJXMJZZRJI4344 [place], [place] [address]Zd# [phone] BMPon 11-21-2021 Anion gap [Moles/Vol] 6 mmol/L Normal 5-16 [facility] Comment on above: Order Comment: Campu s: M Performed By: #### L 500.54119, L500.41848 ####[facility] JHQLTAETOS5291 [place], [place] [address]Ai# [phone] Calcium [Mass/Vol] 8.0 mg/dL Low 8.5-10.5 [facility] Comment on above: Order Comment: Campu s: M Result Comment: NOTE NEW NORMAL RANGE DUE TO REAGENT CHANGE Performed By: #### L 500.92380, L500.91206 ####[facility] EBROLOBJTR2015 [place], [place] [address]Kf# [phone] Chloride [Moles/Vol] 102 mmol/L Normal 98-107 [facility] Comment on above: Order Comment: Campu s: M Performed By: #### L 500.95166, L500.24779 ####[facility] GRSBKLHFGA7100 [place], [place] [address]Yj# [phone] CO2 [Moles/Vol] 25.0 mmol/L Normal 21-32 [facility] Comment on above: Order Comment: Campu s: M Performed By: #### L 500.71425, L500.03015 ####[facility] ZZYBKXHDGQ3642 [place], [place] [address]Hk# [phone] Creatinine [Mass/Vol] 0.66 mg/dL Normal 0.5-1.4 [facility] Comment on above: Order Comment: Campu s: M Result Comment: NOTE NEW NORMAL RANGE DUE TO REAGENT CHANGEPatients receiving either N-Acetylcysteine (NAC) orMetamizole prior to venipuncture, may have falsely depressedresults. Performed By: #### L 500.41955, L500.46025 ####[facility] NQEMELLBNF4562 [place], [place] [address]Iv# [phone] Glucose [Mass/Vol] 97 mg/dL Normal 70-100 [facility] Comment on above: Order Comment: Campu s: M Result Comment: 70-1 00- Normal Fasting; 100-125 Impaired Fasting; greaterthan 126 on more than one result- Diabetes. ADA guidelines.Results may be falsely elevated after the administration ofSulfapyridine.Results may be falsely depressed after the administration ofSulfasalazine. Performed By: #### L 500.50586, L500.09978 ####[facility] XLWAVLTEOI8046 [place], [place] [address]Hs# [phone] Potassium [Moles/Vol] 3.5 mmol/L Normal 3.5-5.1 [facility] Comment on above: Order Comment: Campu s: M Result Comment: Slig ht Hemolysis, Result may be affected. Performed By: #### L 500.89104, L500.97747 ####[facility] [id number] [place], [place] [address]Jp# [phone] Sodium [Moles/Vol] 133 mmol/L Low 136-145 [facility] Comment on above: Order Comment: Campu s: M Performed By: #### L 500.11113, L500.73556 ####[facility] XEXNSUOPPL3201 [place], [place] [address]Ft# [phone] Urea nitrogen [Mass/Vol] 6 mg/dL Low 7-26 [facility] Comment on above: Order Comment: Campu s: M Performed By: #### L 500.25015, L500.43728 ####[facility] [id number] [place] [address]Ni# [phone] Urea nitrogen/Creatinine [Mass ratio] 9 mg/mg Low 15-24 [facility] Comment on above: Order Comment: Campu s: M Performed By: #### L 500.00104, L500.03121 ####[facility] [id number] [place], [place] [address]Ph# [phone] CBC W/DIFFon 11-21-2021 ACANTHO 1+ [facility] Comment [facility]: Order Comment: Campu s: M Performed By: #### L 200.19125 ####[place] [address]Ph# [phone] ANISO 1+ [facility] Comment on above: Order Comment: Campu s: M Performed By: #### L 200.51370 ####[place] [address]Ph# [phone] BASO ABS 0.00 K/CU MM Normal 0-0.2 [facility] Comment on above: Order Comment: Campu s: M Performed By: #### L 200.00438 ####[facility] [id number] [place] [address]El# [phone] Basophils/100 WBC (Bld) 0.5 % Normal 0-2 [facility] Comment on above: Order Comment: Campu s: M Performed By: #### L 200.02880 ####[facility] [id number] [place] [address]Lm# [phone] EOS ABS 0.00 K/CU MM Normal 0-0.5 [facility] Comment on above: Order Comment: Campu s: M Performed By: #### L 200.48780 ####[facility] GDFXVPZBUR[address] [place], [place] [address]Ph# [phone] Eosinophils/100 WBC (Bld) 0.2 % Normal 0-5 [facility] Comment on above: Order Comment: Campu s: M Performed By: #### L 200.69644 ####[facility] PVZRDGTABV1459 [place], [place] [address]Og# [phone] Erythrocyte distribution width (RBC) [Ratio] 19.8 % High 11-14.5 [facility] Comment on above: Order Comment: Campu s: M Performed By: #### L 200.90098 ####[facility] BWSGFPVYFL[address] [place] [address]Pq# [phone] Hematocrit (Bld) [Volume fraction] 28.6 % Low 41.0-53.0 [facility] Comment on above: Order Comment: Campu s: M Performed By: #### L 200.16984 ####[facility] YDHCBYMPOJ[address] [place] [address]Vo# [phone] Hemoglobin (Bld) [Mass/Vol] 8.2 g/dL Low 13.5-17.5 [facility] Comment on above: Order Comment: Campu s: M Performed By: #### L 200.28276 ####[facility] ANTEITKLSD[address] [place], [place] [address]Ph# [phone] HYPO 3+ Normal [facility] Comment on above: Order Comment: Campu s: M Performed By: #### L 200.54322 ####[facility] OTOLYTOSIX[address] [place], [place] [address]Ph# [phone] IMMATR GRAN ABS 0.00 K/CU MM Normal Less than 2 [facility] Comment on above: Order Comment: Campu s: M Performed By: #### L 200.25709 ####[facility] JEYHPKILEO[address] [place] [address]Gp# [phone] IMMATURE GRAN % 0.0 % Normal Less than 2 [facility] Comment on above: Order Comment: Campu s: M Performed By: #### L 200.86931 ####[facility] QSLYCJROWV[address] [place], [place] [address]Ph# [phone] LYMPH ABS 5.00 K/CU MM High 0.9-4.4 [facility] Comment on above: Order Comment: Campu s: M Performed By: #### L 200.61553 ####[facility] SWBVPCTQMQ[address] [place] [address]Ue# [phone] Lymphocytes/100 WBC (Bld) 88.3 % High 20-40 [facility] Comment on above: Order Comment: Campu s: M Performed By: #### L 200.67519 ####[address] [address]Vh# [phone] MCHC (RBC) [Mass/Vol] 28.7 g/dL Low 32.0-36.0 [facility] Comment on above: Order Comment: Campu s: M Performed By: #### L 200.50572 ####[place] [address]Ph# [phone] MCV (RBC) [Entitic vol] 67.3 fL Low 80.0-99.0 [facility] Comment on above: Order Comment: Campu s: M Performed By: #### L 200.43076 ####[place] [address]Ph# [phone] MICRO 2+ Normal [facility] Comment on above: Order Comment: Campu s: M Performed By: #### L 200.94384 ####[facility] [id number] [place] [address]Fq# [phone] MONO ABS 0.30 K/CU MM Normal 0.1-1.1 [facility] Comment on above: Order Comment: Campu s: M Performed By: #### L 200.19729 ####[facility] UMSDRLGNXW[address] [place] [address]Jn# [phone] Monocytes/100 WBC (Bld) 5.2 % Normal 2-10 [facility] Comment on above: Order Comment: Campu s: M Performed By: #### L 200.13866 ####[facility] LEWMQFJSSA7287 [place], [place] [address]Vk# [phone] NEUTROPHIL ABS 0.30 K/CU MM Low 2.0-8.3 [facility] Comment on above: Order Comment: Campu s: M Performed By: #### L 200.16495 ####[facility] RUDHEGJXFM6780 [place], [place] [address]Xu# [phone] Neutrophils/100 WBC (Bld) 5.8 % Low 45-75 [facility] Comment on above: Order Comment: Campu s: M Performed By: #### L 200.94978 ####[facility] [id number] [place], [place] [address]Ph# [phone] Nucleated RBC/100 WBC (Bld) [Ratio] 0.0 % Normal Less than 1 [facility] Comment on above: Order Comment: Campu s: M Performed By: #### L 200.01309 ####[facility] [id number] [place], [place] [address]Ph# [phone] OVALOCYTES 1+ Normal [facility] Comment on above: Order Comment: Campu s: M Performed By: #### L 200.93845 ####[facility] SIDDFGEKXK9731 [place], [place] [address]Zu# [phone] Platelet mean volume (Bld) [Entitic vol] 10.4 fL Normal 9.4-12.4 [facility] Comment on above: Order Comment: Campu s: M Performed By: #### L 200.06019 ####[facility] QKQZXLFOXA5445 [place], [place] [address]Rn# [phone] PLT 138 K/CU MM Low 150-450 [facility] Comment on above: Order Comment: Campu s: M Result Comment: Conf irmed by slide estimate. Performed By: #### L 200.45662 ####[facility] [id number] [place], [place] [address]Qd# [phone] PLT EST SLT DECREASED Normal [facility] Comment on above: Order Comment: Campu s: M Performed By: #### L 200.95048 ####[facility] KZHMVHVOSU9705 [place], [place] [address]Bk# [phone] POIK 2+ Normal [facility] Comment on above: Order Comment: Campu s: M Performed By: #### L 200.24619 ####[facility] [id number] [place] [address]Kx# [phone] POLY 1+ Normal [facility] Comment on above: Order Comment: Campu s: M Performed By: #### L 200.80873 ####[facility] [id number] [place] [address]He# [phone] RBC 4.25 M/CU MM Low 4.50-6.00 [facility] Comment on above: Order Comment: Campu s: M Performed By: #### L 200.63815 ####[facility] [id number] [place] [address]Eg# [phone] SCHISTOCYTES 1+ Normal [facility] Comment on above: Order Comment: Campu s: M Performed By: #### L 200.93187 ####[facility] [id number] [place] [address]Sa# [phone] WBC 5.6 K/CUMM Normal 4.5-11.0 [facility] Comment on above: Order Comment: Campu s: M Performed By: #### L 200.19598 ####[facility] [id number] [place] [address]Sl# [phone] GFR ESTon 11-21-2021 IF AMER Greater than 60 Normal [facility] Comment on above: Order Comment: Campu s: M Performed By: #### L 500.79476, L500.60298 ####[facility] BMKYSRVNHF4253 [place], [place] [address]Ay# [phone] IF non-AFR AMER Greater than 60 Normal [facility] Comment on above: Order Comment: Campu s: M Performed By: #### L 500.64485, L500.76338 ####[facility] [id number] [place], [place] [address]Ud# [phone] OTARon 11-21-2021 OT Assessment Report Normal [facility] OTAR Normal [facility] PROG IMSon 11-21-2021 PROG IMS Normal [facility] Progress Note-Hospitalist [facility] PR[facility]on 11-21-2021 PROG.NOTE Normal [facility] Progress Note-Physician Normal [facility] PTARon 11-21-2021 PT Assessment Report Normal [facility] PTAR Normal [facility] TROPONIN Ion 11-21-2021 TROPONIN I 8.0 pg/mL Normal 0-54 [facility] Comment on above: Order Comment: Campu s: MQNS Result Comment: NOTE NEW NORMAL RANGE DUE TO REAGENT CHANGEThis assay uses different antibodies than our current assay,and assays, even by the same consulting marine engineer may recognizedifferent regions of the antibody and cannot be usedinterchangeably. Expect results of this assay to run higherthan the previous assay. Performed By: #### L 550.55345 ####[facility] [id number] [place], [place] [address]Pd# [phone] PROG IMSon 11-20-2021 PROG IMS Normal [facility] Progress Note-Hospitalist Normal [facility] CBC W/DIFFon 11-19-2021 ACANTHO 1+ Normal [facility] Comment on above: Order Comment: Campu s: M Performed By: #### L 200.97457 ####[facility] IFGNTUVRVC1227 [place], [place] [address]Uz# [phone] ANISO 1+ Normal [facility] Comment on above: Order Comment: Campu s: M Performed By: #### L 200.48655 ####[facility] WLIPTNWVTG1797 [place], [place] [address]Nv# [phone] BASO ABS 0.00 K/CU MM Normal 0-0.2 [facility] Comment on above: Order Comment: Campu s: M Performed By: #### L 200.40928 ####[facility] HEDOXXAKRU6775 [place], [place] [address]Jf# [phone] Basophils/100 WBC (Bld) 0.3 % Normal 0-2 [facility] Comment on above: Order Comment: Campu s: M Performed By: #### L 200.32353 ####[facility] [id number] [place] [address]Hv# [phone] EOS ABS 0.00 K/CU MM Normal 0-0.5 [facility] Comment on above: Order Comment: Campu s: M Performed By: #### L 200.47477 ####[facility] DLSAMRRMKQ[address] [place] [address]Mk# [phone] Eosinophils/100 WBC (Bld) 0.0 % Normal 0-5 [facility] Comment on above: Order Comment: Campu s: M Performed By: #### L 200.47749 ####[facility] [address]QHJQKWPTL[address] [place] [address]Fv# [phone] Erythrocyte distribution width (RBC) [Ratio] 19.6 % High 11-14.5 [facility] Comment on above: Order Comment: Campu s: M Performed By: #### L 200.27567 ####[facility] JOFUUXYWQU[address] [place] [address]Vu# [phone] Hematocrit (Bld) [Volume fraction] 25.2 % Low 41.0-53.0 [facility] Comment on above: Order Comment: Campu s: M Performed By: #### L 200.05875 ####[facility] [id number] [place] [address]Tl# [phone] Hemoglobin (Bld) [Mass/Vol] 7.1 g/dL Low 13.5-17.5 [facility] Comment on above: Order Comment: Campu s: M Performed By: #### L 200.77721 ####[facility] [id number] [place] [address]Ph# [phone] HYPO 3+ Normal [facility] Comment on above: Order Comment: Campu s: M Performed By: #### L 200.20027 ####[facility] HWBTXZQHUD4303 [place] [address]Ph# [phone] IMMATR GRAN ABS 0.00 K/CU MM Normal Less than 2 [facility] Comment on above: Order Comment: Campu s: M Performed By: #### L 200.57570 ####[facility] ZSNQNXWNRA[address] [place], [place] [address]Ph# [phone] IMMATURE GRAN % 0.3 % Normal Less than 2 [facility] Comment on above: Order Comment: Campu s: M Performed By: #### L 200.79472 ####[facility] VSXMOWTZRS[address] [place], [place] [address]Ph# [phone] LYMPH ABS 3.30 K/CU MM Normal 0.9-4.4 [facility] Comment on above: Order Comment: Campu s: M Performed By: #### L 200.79202 ####[facility] [id number] [place], [place] [address]Ph# [phone] Lymphocytes/100 WBC (Bld) 93.0 % High 20-40 [facility] Comment on above: Order Comment: Campu s: M Performed By: #### L 200.07599 ####[facility] [id number] [place], [place] [address]Ph# [phone] MCHC (RBC) [Mass/Vol] 28.2 g/dL Low 32.0-36.0 [facility] Comment on above: Order Comment: Campu s: M Performed By: #### L 200.70699 ####[facility] NOBOLRGUOG[address] [place] [address]Jh# [phone] MCV (RBC) [Entitic vol] 67.7 fL Low 80.0-99.0 [facility] Comment on above: Order Comment: Campu s: M Performed By: #### L 200.42007 ####[facility] IOCGFIHISN4524 [place] [address]Ph# [phone] MICRO 2+ Normal [facility] Comment on above: Order Comment: Campu s: M Performed By: #### L 200.23063 ####[facility] [id number] [place], [place] [id number]# [phone] MONO ABS 0.10 K/CU MM Normal 0.1-1.1 [facility] [place] Comment on above: Order Comment: Campu s: M Performed By: #### L [id number] ####[facility] [id number] [place], [place] [id number]# [phone] Monocytes/100 WBC (Bld) 2.8 % [facility] 2[facility]10 [facility]: Order Comment: Campu s: M Performed By: #### L [id number] ####[facility] [id number] [place], [place] [id number]# [phone] NEUTROPHIL ABS 0.10 K/CU MM Low 2.0-8.3 [facility] [place] Comment on above: Order Comment: Campu s: M Performed By: #### L [id number] ####[facility] [id number] [place], [place] [address]Xj# [phone] Neutrophils/100 WBC (Bld) 3.6 % Low 45-75 [facility] [place] Comment on above: Order Comment: Campu s: M Performed By: #### L 200.90032 ####[facility] [id number] [place], [place] [address]Gf# [phone] Nucleated RBC/100 WBC (Bld) [Ratio] 0.0 % Normal Less than 1 [facility] [place] Comment on above: Order Comment: Campu s: M Performed By: #### L 200.15462 ####[facility] [id number] [place], [place] [id number]# [phone] OVALOCYTES 1+ Normal [facility] [place] Comment on above: Order Comment: Campu s: M Performed By: #### L [id number] ####[facility] [id number] [place] [address]Rw# [phone] PLT 112 K/CU MM Low 150-450 [facility] Comment on above: Order Comment: Campu s: M Result Comment: Conf irmed by slide estimate. Performed By: #### L 200.66703 ####[facility] [id number] [place], [place] [address]Ph# [phone] PLT EST SLT DECREASED Normal [facility] Comment on above: Order Comment: Campu s: M Performed By: #### L 200.17320 ####[facility] [id number] [place], [place] [address]Ph# [phone] POIK 3+ Normal [facility] Comment on above: Order Comment: Campu s: M Performed By: #### L 200.44825 ####[facility] PTKTKQXIPR[address] [place] [address]Mb# [phone] RBC 3.72 M/CU MM Low 4.50-6.00 [facility] Comment on above: Order Comment: Campu s: M Performed By: #### L 200.46070 ####[facility] TOZNLSROPK[address] [place] [address]Ch# [phone] SCHISTOCYTES 1+ Normal [facility] Comment on above: Order Comment: Campu s: M Performed By: #### L 200.61153 ####[facility] [id number] [place] [address]Nk# [phone] TEAR DROP CELLS 1+ Normal [facility] Comment on above: Order Comment: Campu s: M Performed By: #### L 200.82692 ####[facility] [address]ZI[address] [place] [address]Rw# [phone] WBC 3.6 K/CUMM Low 4.5-11.0 [facility] Comment on above: Order Comment: Campu s: M Performed By: #### L 200.69891 ####[facility] NFPZMDZYCU6274 [place], [place] [address]It# [phone] CMPon 11-19-2021 Albumin [Mass/Vol] 2.2 g/dL Low 3.2-5.0 [facility] Comment on above: Order Comment: Campu s: M Performed By: #### L 500.35128, L500.09935, L500.21174 ####[facility] PECSBCYCKQ9477 [place], [place] [address]Ac# [phone] Albumin/Globulin [Mass ratio] 1.1 {ratio} Normal 0.8-2.0 [facility] Comment on above: Order Comment: Campu s: M Performed By: #### L 500.40587, L500.06953, L500.11153 ####[facility] LIZBNZQMWT5395 [place], [place] [address]Kr# [phone] ALK PHOS 46 U/L Normal 45-117 [facility] Comment on above: Order Comment: Campu s: M Performed By: #### L 500.73474, L500.88806, L500.23671 ####[facility] WYOKNQNHNZ1130 [place], [place] [address]Ed# [phone] ALT [Catalytic activity/Vol] 72 U/L High 13-61 [facility] Comment on above: Order Comment: Campu s: M Result Comment: RESU LTS MAY BE FALSELY DEPRESSED AFTER THE ADMINISTRATION OFSULFASALAZINE AND/OR SULFAPYRIDINE. Performed By: #### L 500.55361, L500.26538, L500.58441 ####[facility] WXBKKFCQKC2474 [place], [place] [address]Ci# [phone] Anion gap [Moles/Vol] 7 mmol/L Normal 5-16 [facility] Comment on above: Order Comment: Campu s: M Performed By: #### L 500.38870, L500.20257, L500.76187 ####[facility] DJRCCQHGQN3001 [place], [place] [address]Mf# [phone] AST [Catalytic activity/Vol] 32 U/L Normal 8-34 [facility] Comment on above: Order Comment: Campu s: M Result Comment: RESU LTS MAY BE FALSELY DEPRESSED AFTER THE ADMINISTRATION OFSULFASALAZINE AND/OR SULFAPYRIDINE. Performed By: #### L 500.03184, L500.02413, L500.13363 ####[facility] BSGFCDKMLY9769 [place], [place] [address]Ch# [phone] BILI TOTAL 0.50 MG/DL Normal 0.2-1.0 [facility] Comment on above: Order Comment: Campu s: M Performed By: #### L 500.14814, L500.56515, L500.27924 ####[facility] ZALPNEACLT5282 [place], [place] [address]Vc# [phone] Calcium [Mass/Vol] 7.6 mg/dL Low 8.5-10.5 [facility] Comment on above: Order Comment: Campu s: M Result Comment: NOTE NEW NORMAL RANGE DUE TO REAGENT CHANGE Performed By: #### L 500.91916, L500.44026, L500.42676 ####[facility] NUBFRQRIAN4089 [place], [place] [address]Bs# [phone] Chloride [Moles/Vol] 106 mmol/L Normal 98-107 [facility] Comment [facility]: Order Comment: Campu s: M Performed By: #### L 500.54402, L500.59178, L500.73789 ####[facility] BQWKTBTHUD7953 [place], [place] [address]Qm# [phone] CO2 [Moles/Vol] 24.0 mmol/L Normal 21-32 [facility] Comment on above: Order Comment: Campu s: M Performed By: #### L 500.71772, L500.86695, L500.78862 ####[facility] ZLQMHIJWLD4861 [place], [place] [address]Yo# [phone] Creatinine [Mass/Vol] 0.60 mg/dL Normal 0.5-1.4 [facility] Comment on above: Order Comment: Campu s: M Result Comment: NOTE NEW NORMAL RANGE DUE TO REAGENT CHANGEPatients receiving either N-Acetylcysteine (NAC) orMetamizole prior to venipuncture, may have falsely depressedresults. Performed By: #### L 500.78551, L500.82019, L500.82093 ####[facility] UUVCOVOOOF8168 [place], [place] [address]Qy# [phone] Globulin (S) [Mass/Vol] 2.0 g/dL Low 2.2-4.2 [facility] Comment on above: Order Comment: Campu s: M Performed By: #### L 500.94852, L500.87404, L500.17753 ####[facility] LZOLLGKKRY0028 [place], [place] [address]Lq# [phone] Glucose [Mass/Vol] 96 mg/dL Normal 70-100 [facility] Comment on above: Order Comment: Campu s: M Result Comment: 70-1 00- Normal Fasting; 100-125 Impaired Fasting; greaterthan 126 on more than one result- Diabetes. ADA guidelines.Results may be falsely elevated after the administration ofSulfapyridine.Results may be falsely depressed after the administration ofSulfasalazine. Performed By: #### L 500.45791, L500.74912, L500.96296 ####[facility] GYYWUUMRPU8416 [place], [place] [address]Uy# [phone] Potassium [Moles/Vol] 3.4 mmol/L Low 3.5-5.1 [facility] Comment on above: Order Comment: Campu s: M Performed By: #### L 500.77800, L500.45042, L500.43615 ####[facility] ZNEESGUCPD8203 [place], [place] [address]Vb# [phone] Protein [Mass/Vol] 4.2 g/dL Low 6.0-8.5 [facility] Comment on above: Order Comment: Campu s: M Performed By: #### L 500.98201, L500.86952, L500.61800 ####[facility] MAHIVOZUPY1138 [place], [place] [address]Pl# [phone] Sodium [Moles/Vol] 137 mmol/L Normal 136-145 [facility] Comment on above: Order Comment: Campu s: M Performed By: #### L 500.22710, L500.32020, L500.08830 ####[facility] FYGCTAOXBT[address] [place] [address]Bd# [phone] Urea nitrogen [Mass/Vol] 8 mg/dL Normal 7-26 [facility] Comment on above: Order Comment: Campu s: M Performed By: #### L 500.41188, L500.11723, L500.46203 ####[facility] [address]QKS[address] [place] [address]Iz# [phone] Urea nitrogen/Creatinine [Mass ratio] 13 mg/mg Low 15-24 [facility] Comment on above: Order Comment: Campu s: M Performed By: #### L 500.13393, L500.23664, L500.59318 ####[facility] [address] [place] [address]Ma# [phone] GFR ESTon 11-19-2021 IF AMER Greater than 60 Normal [facility] Comment on above: Order Comment: Campu s: M Performed By: #### L 500.48239, L500.31090, L500.46763 ####[facility] [address]NA[address] [place] [address]Xh# [phone] IF non-AFR AMER Greater than 60 Normal [facility] Comment on above: Order Comment: Campu s: M Performed By: #### L 500.65715, L500.56112, L500.79611 ####[facility] L[address]RE[address] [place] [address]Tc# [phone] HP.IMS.CONon 11-19-2021 CONSULTATION-H&P Normal [facility] HP.IMS.CON Normal [facility] MAGNESIUMon 11-19-2021 Magnesium [Mass/Vol] 1.5 mg/dL Low 1.6-2.6 [facility] Comment on above: Order Comment: Campu s: M Performed By: #### L 500.36506, L500.60735, L500.78512 ####[facility] BAENUGYYQB9146 [place], [place] [address]Th# [phone] PROG.NOTEon 11-19-2021 PROG.NOTE Normal [facility] Progress Note-Physician Normal [facility] PROG.NOTE Normal [facility] Progress Note-Physician Normal [facility] CBC W/DIFFon 11-18-2021 ANISO 1+ Normal [facility] Comment on above: Order Comment: Campu s: M Performed By: #### L 200.12820, L200.38213 ####[facility] NDERAFARZX4210 [place], [place] [address]Vt# [phone] BASO ABS 0.00 K/CU MM Normal 0-0.2 [facility] Comment on above: Order Comment: Campu s: M Performed By: #### L 200.92541, L200.47140 ####[facility] JODFMRCVPS5719 [place], [place] [address]Un# [phone] Basophils/100 WBC (Bld) 0.4 % Normal 0-2 [facility] Comment on above: Order Comment: Campu s: M Performed By: #### L 200.81654, L200.24306 ####[facility] IGJQCORWEF8446 [place], [place] [address]Cc# [phone] EOS ABS 0.00 K/CU MM Normal 0-0.5 [facility] Comment on above: Order Comment: Campu s: M Performed By: #### L 200.69570, L200.89227 ####[facility] TAVWNPZMNP4543 [place], [place] [address]Bh# [phone] Eosinophils/100 WBC (Bld) 0.2 % Normal 0-5 [facility] Comment on above: Order Comment: Campu s: M Performed By: #### L 200.14597, L200.26573 ####[facility] KJIGBVZGHV5740 [place], [place] [address]Mf# [phone] Erythrocyte distribution width (RBC) [Ratio] 19.8 % High 11-14.5 [facility] Comment on above: Order Comment: Campu s: M Performed By: #### L 200.60041, L200.43644 ####[facility] JIWJJIGPHS5037 [place], [place] [address]Sq# [phone] Hematocrit (Bld) [Volume fraction] 25.7 % Low 41.0-53.0 [facility] Comment [facility] above: Order Comment: Campu s: M Performed By: #### L 200.20476, L2.03408 ####[facility] BTGVOMVIAA5988 [place], [place] [address]Pb# [phone] Hemoglobin (Bld) [Mass/Vol] 7.3 g/dL Low 13.5-17.5 [facility] Comment on above: Order Comment: Campu s: M Performed By: #### L 200.04998, L2.83665 ####[facility] DWRNNXGHEK2795 [place], [place] [address]Di# [phone] HYPO 3+ Normal [facility] Comment on above: Order Comment: Campu s: M Performed By: #### L 200.08282, L2.92864 ####[facility] KBVWNLISDD3910 [place], [place] [address]Sb# [phone] IMMATR GRAN ABS 0.00 K/CU MM Normal Less than 2 [facility] Comment on above: Order Comment: Campu s: M Performed By: #### L 200.51202, L20097489 ####[facility] XLMOOLRPVN3033 [place], [place] [address]Pz# [phone] IMMATURE GRAN % 0.2 % Normal Less than 2 [facility] Comment on above: Order Comment: Campu s: M Performed By: #### L 200.65924, L2.12835 ####[facility] EWDWXKGLXN4333 [place], [place] [address]Lp# [phone] LYMPH ABS 4.50 K/CU MM High 0.9-4.4 [facility] Comment on above: Order Comment: Campu s: M Performed By: #### L 200.11696, L2900 ####[facility] LNBGGFEVJN2131 [place] [address]Ph# [phone] Lymphocytes/100 WBC (Bld) 88.2 % High 20-40 [facility] Comment on above: Order Comment: Campu s: M Performed By: #### L 200.92027, L2900 ####[place] [address]Ph# [phone] MCHC (RBC) [Mass/Vol] 28.4 g/dL Low 32.0-36.0 [facility] Comment on above: Order Comment: Campu s: M Performed By: #### L 200.97558, L2900 ####[facility] VYKELRARZO2293 [place], [place] [address]Qa# [phone] MCV (RBC) [Entitic vol] 67.6 fL Low 80.0-99.0 [facility] Comment on above: Order Comment: Campu s: M Performed By: #### L 200.67000, L2900 ####[facility] WRXDDHICNM0494 [place], [place] [address]Tz# [phone] MICRO 2+ Normal [facility] Comment on above: Order Comment: Campu s: M Performed By: #### L 200.86562, L2900 ####[facility] EGQGNWWQKO5662 [place], [place] [address]Gw# [phone] MONO ABS 0.10 K/CU MM Normal 0.1-1.1 [facility] Comment on above: Order Comment: Campu s: M Performed By: #### L 200.42397, L200.24502 ####[facility] TWRBKXXUKY5982 [place], [place] [address]Qf# [phone] Monocytes/100 WBC (Bld) 2.4 % Normal 2-10 [facility] Comment on above: Order Comment: Campu s: M Performed By: #### L 200.55728, L200.40615 ####[facility] KTTZMLOWUR6143 [place], [place] [address]Ip# [phone] NEUTROPHIL ABS 0.40 K/CU MM Low 2.0-8.3 [facility] Comment on above: Order Comment: Campu s: M Performed By: #### L 200.52839, L200.45389 ####[facility] LULRBJXYDC1031 [place], [place] [address]La# [phone] Neutrophils/100 WBC (Bld) 8.6 % Low 45-75 [facility] Comment on above: Order Comment: Campu s: M Performed By: #### L 200.00214, L200.22382 ####[facility] TSBAPAQELK7866 [place], [place] [address]Ko# [phone] Nucleated RBC/100 WBC (Bld) [Ratio] 0.0 % Normal Less than 1 [facility] Comment on above: Order Comment: Campu s: M Performed By: #### L 200.69141, L200.74424 ####[facility] QABGFCXHQJ0908 [place], [place] [address]Hu# [phone] OVALOCYTES 1+ Normal [facility] Comment on above: Order Comment: Campu s: M Performed By: #### L 200.77180, L200.41987 ####[facility] FPDVUDMVVO6770 [place], [place] [address]Lc# [phone] Platelet mean volume (Bld) [Entitic vol] 9.5 fL Normal 9.4-12.4 [facility] Comment on above: Order Comment: Campu s: M Performed By: #### L 200.26823, L200.87131 ####[facility] ETAJXLUVRT5105 [place], [place] [address]Hy# [phone] PLT 122 K/CU MM Low 150-450 [facility] Comment on above: Order Comment: Campu s: M Result Comment: Conf irmed by slide estimate. Performed By: #### L 200.58135, L200.27910 ####[facility] OKQRCTDRPS5716 [place], [place] [address]Th# [phone] PLT EST SLT DECREASED Normal [facility] Comment on above: Order Comment: Campu s: M Performed By: #### L 200.35942, L200.67526 ####[facility] YQPVVALMDM9529 [place], [place] [address]Dh# [phone] PLT MORPH LARGE FORMS NOTED Normal [facility] Comment on above: Order Comment: Campu s: M Performed By: #### L 200.15397, L200.20453 ####[facility] YPLRKDLDMN6119 [place], [place] [address]Wk# [phone] POIK 2+ Normal [facility] Comment on above: Order Comment: Campu s: M Performed By: #### L 200.69927, L200.50103 ####[facility] JVBOSWCFVL4296 [place], [place] [address]Yl# [phone] RBC 3.80 M/CU MM Low 4.50-6.00 [facility] Comment on above: Order Comment: Campu s: M Performed By: #### L 200.48447, L200.22984 ####[facility] VFCPGCNANZ1578 [place], [place] [address]Wi# [phone] SCHISTOCYTES 1+ Normal [facility] Comment on above: Order Comment: Campu s: M Performed By: #### L 200.17408, L200.71107 ####[facility] JEIERIDADS8049 [place], [place] [address]Bz# [phone] WBC 5.1 K/CUMM Normal 4.5-11.0 [facility] Comment on above: Order Comment: Campu s: M Performed By: #### L 200.25596, L200.81910 ####[facility] DJAEFLKBJN7784 [place], [place] [address]Zw# [phone] CMPon 11-18-2021 Albumin [Mass/Vol] 2.1 g/dL Low 3.2-5.0 [facility] Comment on above: Order Comment: Campu s: M Performed By: #### L 500.50642, L500.85035, L500.47613 ####[facility] PEZDCZVHRJ8838 [place], [place] [address]Pk# [phone] Albumin/Globulin [Mass ratio] 1.0 {ratio} Normal 0.8-2.0 [facility] Comment on above: Order Comment: Campu s: M Performed By: #### L 500.03692, L500.99013, L500.39391 ####[facility] PGVXCSELIZ1115 [place], [place] [address]Ds# [phone] ALK PHOS 50 U/L Normal 45-117 [facility] Comment on above: Order Comment: Campu s: M Performed By: #### L 500.00532, L500.37185, L500.45211 ####[facility] XRUPQVQNSL2499 [place], [place] [address]Wo# [phone] ALT [Catalytic activity/Vol] 109 U/L High 13-61 [facility] Comment on above: Order Comment: Campu s: M Result Comment: RESU LTS MAY BE FALSELY DEPRESSED AFTER THE ADMINISTRATION OFSULFASALAZINE AND/OR SULFAPYRIDINE. Performed By: #### L 500.63094, L500.06773, L500.01723 ####[facility] NKSVPMHIQA1706 [place], [place] [address]Zb# [phone] Anion gap [Moles/Vol] 5 mmol/L Normal 5-16 [facility] [place] Comment on above: Order Comment: Campu s: M Performed By: #### L 500.10467, L500.13472, L500.96764 ####[facility] LHGHDWDFZJ7653 [place], [place] [address]Yz# [phone] AST [Catalytic activity/Vol] 100 U/L High 8-34 [facility] Comment on above: Order Comment: Campu s: M Result Comment: RESU LTS MAY BE FALSELY DEPRESSED AFTER THE ADMINISTRATION OFSULFASALAZINE AND/OR SULFAPYRIDINE. Performed By: #### L 500.26272, L500.13683, L500.58647 ####[facility] XADNWHSMGN5881 [place], [place] [address]Kw# [phone] BILI TOTAL 0.80 MG/DL Normal 0.2-1.0 [facility] Comment on above: Order Comment: Campu s: M Performed By: #### L 500.26456, L500.99172, L500.22773 ####[facility] SSPQZPKMIN[address] [place] [address]Ev# [phone] Calcium [Mass/Vol] 7.5 mg/dL Low 8.5-10.5 [facility] Comment on above: Order Comment: Campu s: M Result Comment: NOTE NEW NORMAL RANGE DUE TO REAGENT CHANGE Performed By: #### L 500.42442, L500.31061, L500.72908 ####[facility] WNSMCCPTEG[address] [place] [address]Gl# [phone] Chloride [Moles/Vol] 107 mmol/L Normal 98-107 [facility] Comment on above: Order Comment: Campu s: M Performed By: #### L 500.70110, L500.90143, L500.75169 ####[facility] UETRYXDUWG1164 [place], [place] [address]Rs# [phone] CO2 [Moles/Vol] 24.0 mmol/L Normal 21-32 [facility] Comment on above: Order Comment: Campu s: M Performed By: #### L 500.24463, L500.04659, L500.00146 ####[facility] PRAHQIUFLG3839 [place], [place] [address]Hq# [phone] Creatinine [Mass/Vol] 0.68 mg/dL Normal 0.5-1.4 [facility] Comment on above: Order Comment: Campu s: M Result Comment: NOTE NEW NORMAL RANGE DUE TO REAGENT CHANGEPatients receiving either N-Acetylcysteine (NAC) orMetamizole prior to venipuncture, may have falsely depressedresults. Performed By: #### L 500.53618, L500.04928, L500.39667 ####[facility] BYJZKKYLNL2283 [place], [place] [address]Qm# [phone] Globulin (S) [Mass/Vol] 2.0 g/dL Low 2.2-4.2 [facility] Comment on above: Order Comment: Campu s: M Performed By: #### L 500.23628, L500.20654, L500.09386 ####[facility] QQZMFVERST0634 [place], [place] [address]Ib# [phone] Glucose [Mass/Vol] 110 mg/dL High 70-100 [facility] Comment on above: Order Comment: Campu s: M Result Comment: 70-1 00- Normal Fasting; 100-125 Impaired Fasting; greaterthan 126 on more than one result- Diabetes. ADA guidelines.Results may be falsely elevated after the administration ofSulfapyridine.Results may be falsely depressed after the administration ofSulfasalazine. Performed By: #### L 500.25087, L500.76896, L500.31700 ####[facility] ELKCFBDIDL0585 [place], [place] [address]Hk# [phone] Potassium [Moles/Vol] 3.1 mmol/L Low 3.5-5.1 [facility] Comment on above: Order Comment: Campu s: M Performed By: #### L 500.85664, L500.52765, L500.08238 ####[facility] ULJYOITTQJ6141 [place], [place] [address]Rr# [phone] Protein [Mass/Vol] 4.1 g/dL Low 6.0-8.5 [facility] Comment on above: Order Comment: Campu s: M Performed By: #### L 500.85479, L500.70755, L500.36334 ####[facility] MYQQPYYNXY4475 [place], [place] [address]Bo# [phone] Sodium [Moles/Vol] 136 mmol/L Normal 136-145 [facility] Comment on above: Order Comment: Campu s: M Performed By: #### L 500.59992, L500.48583, L500.30915 ####[facility] VSAFZXVNRM5834 [place], [place] [address]Ow# [phone] Urea nitrogen [Mass/Vol] 14 mg/dL Normal 7-26 [facility] Comment on above: Order Comment: Campu s: M Performed By: #### L 500.07041, L500.40220, L500.63051 ####[facility] HQAIXKAQWQ1521 [place], [place] [address]Jo# [phone] Urea nitrogen/Creatinine [Mass ratio] 21 mg/mg Normal 15-24 [facility] Comment on above: Order Comment: Campu s: M Performed By: #### L 500.97655, L500.94648, L500.27161 ####[facility] AFLCJRIACZ5225 [place], [place] [address]Nt# [phone] GFR ESTon 11-18-2021 IF AMER Greater than 60 Normal [facility] Comment [facility]: Order Comment: Campu s: M Performed By: #### L 500.76465, L500.65450, L500.41409 ####[facility] QJQHVNSGNJ9276 [place], [place] [address]Vt# [phone] IF non-AFR AMER Greater than 60 [facility]: Order Comment: Campu s: M Performed By: #### L 500.32995, L500.05009, L500.45159 ####[facility] [id number] [place], [place] [address]Cq# [phone] MAGNESIUMon 11-18-2021 Magnesium [Mass/Vol] 1.6 mg/dL Normal 1.6-2.6 [facility] Comment on above: Order Comment: Campu s: M Performed By: #### L 500.27069, L500.53755, L500.68422 ####[facility] [id number] [place], [place] [address]Tc# [phone] PHA.NOTEon 11-18-2021 PHA.NOTE Normal [facility] Pharmacy Note Normal [facility] PROG IMSon 11-18-2021 PROG IMS Normal [facility] Progress Note-Hospitalist Normal [facility] PROG.IDon 11-18-2021 PROG.ID Normal [facility] Progress Note-Infectious Dis Normal [facility] SMEAR REVIEWon 11-18-2021 SMEAR REVIEW TNP Normal [facility] Comment on above: Order Comment: Campu s: M Result Comment: SMRV 11/16 Performed By: #### L 200.68255, L200.28405 ####[facility] [id number] [place], [place] [address]Qk# [phone] SMEAR REVIEW Normal [facility] Comment on above: Order Comment: Campu s: M Result Comment: Appe arance consistent with CLL or lymphoma, not otherwisespecified. Consider Flow Cytometry for Clonality andlineage, if clinically indicated.Reviewed by Dacia Grimes M.D., Pathologist. [id number] Performed By: #### L 200.27796, L200.74201 ####[facility] [id number] [place], [place] [address]Pt# [phone] URINE CULTUREon 11-18-2021 Bacteria identified Cx Nom (U) NO GROWTH AFTER 48 HOURS Normal [facility] Comment on above: Order Comment: Campu s: M Performed By: #### M 100.46410 ####[facility] [id number] [place], [place] [address]Rx# [phone] CBC W/DIFFon 11-17-2021 ANISO 1+ Normal [facility] Comment on above: Order Comment: Campu s: M Performed By: #### L 200.60711 ####[facility] [id number] [place] [address]Ts# [phone] BASO ABS 0.00 K/CU MM Normal 0-0.2 [facility] Comment on above: Order Comment: Campu s: M Performed By: #### L 200.09301 ####[place] [id number]# [phone] Basophils/100 WBC (Bld) 0.1 % Normal 0-2 [facility] [facility] Comment on above: Order Comment: Campu s: M Performed By: #### L 200.14099 ####[place] [id number]# [phone] EOS ABS 0.00 K/CU MM Normal 0-0.5 [facility] Comment on above: Order Comment: Campu s: M Performed By: #### L 200.44677 ####[facility] [id number] [place], [place] [address]Ph# [phone] Eosinophils/100 WBC (Bld) 0.0 % Normal 0-5 [facility] Comment on above: Order Comment: Campu s: M Performed By: #### L 200.02230 ####[facility] [id number] [place], [place] [address]Ph# [phone] Erythrocyte distribution width (RBC) [Ratio] 20.4 % High 11-14.5 [facility] Comment on above: Order Comment: Campu s: M Performed By: #### L 200.94238 ####[facility] [id number] [place] [address]Sa# [phone] Hematocrit (Bld) [Volume fraction] 30.1 % Low 41.0-53.0 [facility] Comment on above: Order Comment: Campu s: M Performed By: #### L 200.81028 ####[facility] [id number] [place], [place] [address]Pd# [phone] Hemoglobin (Bld) [Mass/Vol] 8.4 g/dL Low 13.5-17.5 [facility] Comment on above: Order Comment: Campu s: M Performed By: #### L 200.94966 ####[facility] [id number] [place], [place] [address]Ph# [phone] HYPO 4+ Normal [facility] Comment on above: Order Comment: Campu s: M Performed By: #### L 200.11118 ####[place] [address]Ph# [phone] IMMATR GRAN ABS 0.20 K/CU MM Normal Less than 2 [facility] Comment on above: Order Comment: Campu s: M Performed By: #### L 200.37737 ####[facility] [id number] [place], [place] [address]Ph# [phone] IMMATURE GRAN % 1.4 % Normal Less than 2 [facility] Comment on above: Order Comment: Campu s: M Performed By: #### L 200.92941 ####[facility] [id number] [place], [place] [address]Ph# [phone] LYMPH ABS 12.50 K/CU MM High 0.9-4.4 [facility] Comment on above: Order Comment: Campu s: M Performed By: #### L 200.08508 ####[facility] [id number] [place], [place] [address]Ph# [phone] Lymphocytes/100 WBC (Bld) 87.5 % High 20-40 [facility] Comment on above: Order Comment: Campu s: M Performed By: #### L 200.85281 ####[facility] [id number] [place], [place] [address]Ph# [phone] MCHC (RBC) [Mass/Vol] 27.9 g/dL Low 32.0-36.0 [facility] Comment on above: Order Comment: Campu s: M Performed By: #### L 200.72724 ####[facility] [id number] [place] [address]Ph# [phone] MCV (RBC) [Entitic vol] 67.2 fL Low 80.0-99.0 [facility] Comment on above: Order Comment: Campu s: M Performed By: #### L 200.92065 ####[facility] [id number] [place], [place] [address]Ph# [phone] MICRO 2+ Normal [facility] Comment on above: Order Comment: Campu s: M Performed By: #### L 200.71207 ####[facility] CZJMKIMGHD5411 [place] [address]Ph# [phone] MONO ABS 0.10 K/CU MM Normal 0.1-1.1 [facility] Comment on above: Order Comment: Campu s: M Performed By: #### L 200.92221 ####[facility] [id number] [place] [address]Ph# [phone] Monocytes/100 WBC (Bld) 0.6 % Low 2-10 [facility] Comment on above: Order Comment: Campu s: M Performed By: #### L 200.90736 ####[facility] PTGDAKJPZT9215 [place] [address]Ph# [phone] NEUTROPHIL ABS 1.50 K/CU MM Low 2.0-8.3 [facility] Comment on above: Order Comment: Campu s: M Performed By: #### L 200.44687 ####[facility] ICODWPZXWR[address] [place] [address]Ay# [phone] Neutrophils/100 WBC (Bld) 10.4 % Low 45-75 [facility] Comment on above: Order Comment: Campu s: M Performed By: #### L 200.69429 ####[facility] IHYVBBBHMC[address] [place], [place] [address]Ph# [phone] Nucleated RBC/100 WBC (Bld) [Ratio] 0.0 % Normal Less than 1 [facility] Comment on above: Order Comment: Campu s: M Performed By: #### L 200.02483 ####[facility] QXQBVFLWRD2104 [place], [place] [address]Hr# [phone] OVALOCYTES 1+ Normal [facility] Comment on above: Order Comment: Campu s: M Performed By: #### L 200.44359 ####[facility] [id number] [place] [address]Rr# [phone] Platelet mean volume (Bld) [Entitic vol] 9.7 fL Normal 9.4-12.4 [facility] Comment on above: Order Comment: Campu s: M Performed By: #### L 200.65746 ####[facility] [id number] [place] [address]Yi# [phone] PLT 188 K/CU MM Normal 150-450 [facility] Comment on above: Order Comment: Campu s: M Result Comment: Conf irmed by slide estimate. Performed By: #### L 200.28199 ####[facility] [id number] [place] [address]Rg# [phone] PLT EST ADEQUATE Normal [facility] Comment on above: Order Comment: Campu s: M Performed By: #### L 200.55727 ####[facility] [id number] [place] [address]Vz# [phone] PLT MORPH LARGE FORMS NOTED Normal [facility] Comment on above: Order Comment: Campu s: M Performed By: #### L 200.70941 ####[facility] [id number] [place] [address]Pt# [phone] POIK 2+ Normal [facility] Comment on above: Order Comment: Campu s: M Performed By: #### L 200.11059 ####[facility] [id number] [place], [place] [address]Ph# [phone] RBC 4.48 M/CU MM Low 4.50-6.00 [facility] Comment on above: Order Comment: Campu s: M Performed By: #### L 200.90076 ####[facility] QDBYYHCQXA2932 [place], [place] [address]Gc# [phone] SCHISTOCYTES 1+ Normal [facility] Comment on above: Order Comment: Campu s: M Performed By: #### L 200.91726 ####[facility] [id number] [place], [place] [address]Ma# [phone] WBC 14.3 K/CUMM High 4.5-11.0 [facility] Comment on above: Order Comment: Campu s: M Performed By: #### L 200.64317 ####[place] [address] [place], [place] [address]Zm# [phone] CDLECHOon 11-17-2021 CDLECHO Normal [facility] ECHOCARDIOGRAM REPORT Normal [facility] CKon 11-17-2021 CK [Catalytic activity/Vol] 590 U/L High 26-192 [facility] Comment on above: Order Comment: Campu s: M Result Comment: Delt a check reviewedNOTE NEW NORMAL RANGE DUE TO REAGENT CHANGE Performed By: #### L 500.24307 ####[facility] VKIAEQXBPJ0931 [place], [place] [address]Mf# [phone] CMPon 11-17-2021 Albumin [Mass/Vol] 2.4 g/dL Low 3.2-5.0 [facility] Comment on above: Order Comment: Campu s: M Performed By: #### L 500.24479, L500.51753, L500.83593, L500.82525 ####[facility] DUZDJAAZSO7931 [place], [place] [address]Nw# [phone] Albumin/Globulin [Mass ratio] 1.1 {ratio} Normal 0.8-2.0 [facility] Comment on above: Order Comment: Campu s: M Performed By: #### L 500.74601, L500.82208, L500.14197, L500.25050 ####[facility] SDTWCRAVKT8126 [place], [place] [address]Gk# [phone] ALK PHOS 58 U/L Normal 45-117 [facility] Comment on above: Order Comment: Campu s: M Performed By: #### L 500.41779, L500.96267, L500.47454, L500.40341 ####[facility] POEDTPTZBS3977 [place], [place] [address]Yl# [phone] ALT [Catalytic activity/Vol] 126 U/L High 13-61 [facility] Comment on above: Order Comment: Campu s: M Result Comment: RESU LTS MAY BE FALSELY DEPRESSED AFTER THE ADMINISTRATION OFSULFASALAZINE AND/OR SULFAPYRIDINE. Performed By: #### L 500.18482, L500.15965, L500.23509, L500.34254 ####[facility] PDWYZCMEKX2210 [place], [place] [address]Hh# [phone] Anion gap [Moles/Vol] 9 mmol/L Normal 5-16 [facility] Comment on above: Order Comment: Campu s: M Performed By: #### L 500.52038, L500.89279, L500.37693, L500.01869 ####[facility] [id number] [place], [place] [address]Mj# [phone] AST [Catalytic activity/Vol] 257 U/L High 8-34 [facility] Comment on above: Order Comment: Campu s: M Result Comment: RESU LTS MAY BE FALSELY DEPRESSED AFTER THE ADMINISTRATION OFSULFASALAZINE AND/OR SULFAPYRIDINE. Performed By: #### L 500.70621, L500.33014, L500.68087, L500.83143 ####[facility] QGXJGMIQFK9110 [place], [place] [address]Vg# [phone] BILI TOTAL 0.60 MG/DL Normal 0.2-1.0 [facility] Comment on above: Order Comment: Campu s: M Performed By: #### L 500.96295, L500.50763, L500.14901, L500.99203 ####[facility] IYEBFQAXRS8782 [place], [place] [address]Fb# [phone] Calcium [Mass/Vol] 7.8 mg/dL Low 8.5-10.5 [facility] Comment on above: Order Comment: Campu s: M Result Comment: NOTE NEW NORMAL RANGE DUE TO REAGENT CHANGE Performed By: #### L 500.19081, L500.22924, L500.00560, L500.01937 ####[facility] MNTWAKNHUI6121 [place], [place] [address]Dk# [phone] Chloride [Moles/Vol] 106 mmol/L Normal 98-107 [facility] Comment on above: Order Comment: Campu s: M Performed By: #### L 500.78284, L500.58837, L500.87551, L500.71581 ####[facility] MOAIYUKYRX7470 [place], [place] [address]Vd# [phone] CO2 [Moles/Vol] 22.0 mmol/L Normal 21-32 [facility] Comment on above: Order Comment: Campu s: M Performed By: #### L 500.93992, L500.63153, L500.95113, L500.72441 ####[facility] FJXGVLGBQV8959 [place], [place] [address]Aq# [phone] Creatinine [Mass/Vol] 0.87 mg/dL Normal 0.5-1.4 [facility] Comment on above: Order Comment: Campu s: M Result Comment: NOTE NEW NORMAL RANGE DUE TO REAGENT CHANGEPatients receiving either N-Acetylcysteine (NAC) orMetamizole prior to venipuncture, may have falsely depressedresults. Performed By: #### L 500.40990, L500.56375, L500.32944, L500.34219 ####[facility] JLZFGMWWPH2347 [place], [place] [address]Oh# [phone] Globulin (S) [Mass/Vol] 2.1 g/dL Low 2.2-4.2 [facility] Comment on above: Order Comment: Campu s: M Performed By: #### L 500.63240, L500.86329, L500.90267, L500.69856 ####[facility] TQAPXSXUXJ9480 [place], [place] [address]Lc# [phone] Glucose [Mass/Vol] 100 mg/dL Normal 70-100 [facility] Comment on above: Order Comment: Campu s: M Result Comment: 70-1 00- Normal Fasting; 100-125 Impaired Fasting; greaterthan 126 on more than one result- Diabetes. ADA guidelines.Results may be falsely elevated after the administration ofSulfapyridine.Results may be falsely depressed after the administration ofSulfasalazine. Performed By: #### L 500.60819, L500.04414, L500.60031, L500.91362 ####[facility] QZXRKPAUSJ9672 [place], [place] [address]Pm# [phone] Potassium [Moles/Vol] 3.0 mmol/L Low 3.5-5.1 [facility] Comment on above: Order Comment: Campu s: M Performed By: #### L 500.05502, L500.84825, L500.29649, L500.64169 ####[facility] XUGKDMSGTY8185 [place], [place] [address]Os# [phone] Protein [Mass/Vol] 4.5 g/dL Low 6.0-8.5 [facility] Comment on above: Order Comment: Campu s: M Performed By: #### L 500.32244, L500.10822, L500.49703, L500.85924 ####[facility] HZYLRLQAEJ7878 [place], [place] [address]Yj# [phone] Sodium [Moles/Vol] 137 mmol/L Normal 136-145 [facility] Comment on above: Order Comment: Campu s: M Performed By: #### L 500.26907, L500.99341, L500.13773, L500.96256 ####[facility] JGQYADZYHY9743 [place], [place] [address]Zi# [phone] Urea nitrogen [Mass/Vol] 23 mg/dL Normal 01-24 [facility] Comment on above: Order Comment: Campu s: M Performed By: #### L 500.73278, L500.11763, L500.26402, L500.11396 ####[facility] SGLJRGIZOT6469 [place], [place] [address]Zc# [phone] Urea nitrogen/Creatinine [Mass ratio] 26 mg/mg High 15- [facility] Comment on above: Order Comment: Campu s: M Performed By: #### L 500.34008, L500.61300, L500.28263, L500.14938 ####[facility] [id number] [place] [address]Xe# [phone] CONS.INTENon 11-17-2021 CONS.INTEN [facility] Consultation-Intensivi st [facility] DIET.ASSMTon 11-17-2021 DIET.ASSMT [facility] Nutrition Assessments [facility] DIET.MALNon 11-17-2021 DIET.MALN [facility] Malnutrition Assessments [facility] Rocio 11-17-2021 EMERGENCY PHYSICIAN REPORT This is a preliminary report only, as the practitioner review and authentication has not occurred. [facility] ER [facility] GFR ESTon 11-17-2021 IF AMER Greater than 60 [facility] Comment on above: Order Comment: Campu s: M Performed By: #### L 500.08572, L500.21688, L500.60575, L500.06292 ####[facility] RRTENRADOF4130 [place], [place] [address]Rj# [phone] IF non-AFR AMER Greater than 60 [facility] Comment on above: Order Comment: Campu s: M Performed By: #### L 500.67720, L500.96736, L500.40610, L500.35522 ####[facility] [address]YXWOXO[address] [place] [address]Sp# [phone] HP.IMS.ADMon 11-17-2021 Admission-H&P [facility] HP.IMS.ADM Normal [facility] HP.IMS.CONon 11-17-2021 CONSULTATION-H&P Normal [facility] HP.IMS.CON [facility] IONIZED CAon 11-17-2021 IONIZED CA 1.02 MMOL/L Low 1.16-1.32 [facility] Comment on above: Order Comment: Martinu s: M Performed By: #### L 550.14431 ####[facility] [id number] [place] [address]Gn# [phone] LACTIC ACIDon 11-17-2021 Lactate [Moles/Vol] 3.69 mmol/L High 0.40-2.00 [facility] Comment on above: Performed By: #### L 550.71393 ####[facility] ACFVYGNSYC[address] [place] [address]Xd# [phone] MAGNESIUMon 11-17-2021 Magnesium [Mass/Vol] 1.4 mg/dL Low 1.6-2.6 [facility] Comment on above: Order Comment: Martinu s: M Performed By: #### L 500.25775, L500.82860, L500.29635, L500.63753 ####[facility] BMUDOTPWEA[address] [place] [address]Xr# [phone] MRSA PCRon 11-17-2021 MRSA PCR Negative Normal NEGATIVE [facility] Comment on above: Order Comment: Alan s: M Result Comment: PLEA NOTE: TESTING DONE BY PCR TECHNOLOGY. Performed By: #### L 770.65238 ####[facility] [id number] [place] [address]Fb# [phone] SA PCR Negative Normal NEGATIVE [facility] Comment on above: Order Comment: Alan s: M Result Comment: PLEA NOTE: TESTING DONE BY PCR TECHNOLOGY. Performed By: #### L 770.72590 ####[facility] JFQOSQPFGH9788 [place], [place] [address]Jk# [phone] PHA.NOTEon 11-17-2021 PHA.NOTE Normal [facility] Pharmacy Note Normal [facility] PHOSon 11-17-2021 Phosphate [Mass/Vol] 4.30 mg/dL Normal 2.5-4.9 [facility] Comment on above: Order Comment: Alan s: Rosemary Result Comment: Elev ated m-protein (paraprotein) levels in the serum may beexhibited in patients with monoclonal gammopathies, causingfalsely elevated inorganic phosphorus results. Performed By: #### L 500.63289, L500.25099, L500.61983, L500.91321 ####[facility] QZNIWLTHER4376 [place], [place] [address]Ai# [phone] PORTABLE CHESTon 11-17-2021 PORTABLE CHEST Normal [facility] PROCAL Aon 11-17-2021 PROCAL A 80.32 NG/ML High 0-0.50 [facility] Comment on above: Order Comment: Alan s: M Result Comment: PCT Concentration InterpretationPCT <=0.1 NG/ML:Normal range for healthy adultsPCT >0.1 NG/ML and <0.5 NG/ML:Systemic infection (sepsis) is possible and may requireantibiotic treatment, but other conditions are known toelevate PCT as well.PCT >0.5 NG/ML:Should ne considered at risk for developing severe sepsisor septic shock.PCT >2.0 NG/ML:Important systemic inflammatory response. Almost exclusivelyindicates episode of severe bacterial sepsis or septicshock.This assy uses differnt methodologies and produces resultssignificantly lower than the Vidas. It is recommended toevaluate patients for sepsis based on results obtained fromthe Atellica platform vs the BraMoodswiings Vidas platform(previous).NOTE NEW NORMAL RANGE DUE TO REAGENT CHANGE Performed By: #### L 500.15410, L500.68752, L550.98454, L500.08472, L500.90249 ####[facility] WSXVSOTZQF9863 [place], [place] [address]Re# [phone] PROG IMSon 11-17-2021 PROG IMS Normal [facility] Progress Note-Hospitalist Normal [facility] PTon 11-17-2021 INR Coag (PPP) [Relative time] 1.66 {INR} High 0.9-1.1 [facility] Comment on above: Order Comment: Alan Riley Result Comment: Vicente mmended PT INR therapeutic range for group home andprophylactic therapy is 2.0 - 3.0. For heart valve andshunt patients the range is 2.5 - 3.5. Performed By: #### L 300.05631, L300.22379 ####[facility] JGEDJWCBZE5279 [place], [place] [address]Te# [phone] PTS 17.7 SECONDS High 9.5-12.0 [facility] Comment on above: Order Comment: Alan Riley Performed By: #### L 300.52618, L300.89114 ####[facility] MVJTGPJAHM9420 [place], [place] [address]Ns# [phone] PTTon 11-17-2021 aPTT Coag (Bld) [Time] 38.1 s High 22.0-31.5 [facility] Comment on above: Order Comment: Alan Riley Result Comment: Ther apeutic Heparin Reference Range: High Dose: 46-75 seconds (DVT/PE) Low Dose: 39-60 seconds (Acute Coronary Syndrome)For low molecular weight heparin or danaparoid, monitoringis often NOT necessary, but the heparin assay, Xa inhibitionassay (send-out) may be used in certain circumstances, asthe PTT is generally insensitive to the effect of theseagents. Direct thrombin inhibitors are becoming more widelyutilized and these drugs are often monitored using the PTT. Performed By: #### L 300.63758, L300.91868 ####[facility] [id number] [place], [place] [address]Aq# [phone] TROPONIN Ion 11-17-2021 TROPONIN I 73.9 pg/mL Critically high 0-54 [facility] Comment on above: Order Comment: Campu s: M Result Comment: Prev ious Critical within one week. Critical Result(s)verified at: 04:43:19 on 11/17/2021 by: Armida RowleyNOTZofia NEW NORMAL RANGE DUE TO REAGENT CHANGEThis assay uses different antibodies than our current assay,and assays, even by the same consulting marine engineer may recognizedifferent regions of the antibody and cannot be usedinterchangeably. Expect results of this assay to run higherthan the previous assay. Performed By: #### L 550.24128 ####[facility] CVTSUJASBQ7390 [place], [place] [address]La# [phone] BMPon 11-16-2021 Anion gap [Moles/Vol] 16 mmol/L Normal 5-16 [facility] Comment on above: Order Comment: Campu s: M Performed By: #### L 500.96141, L500.21800, L550.17988, L500.19757, L500.01627 ####[facility] XLOEQNZSBM0231 [place], [place] [address]By# [phone] Calcium [Mass/Vol] 8.8 mg/dL Normal 8.5-10.5 [facility] Comment on above: Order Comment: Campu s: M Result Comment: NOTE NEW NORMAL RANGE DUE TO REAGENT CHANGE Performed By: #### L 500.80533, L500.28288, L550.51133, L500.21497, L500.64813 ####[facility] WJYDHVCUAO0714 [place], [place] [address]Mm# [phone] Chloride [Moles/Vol] 100 mmol/L Normal 98-107 [facility] Comment on above: Order Comment: Campu s: M Performed By: #### L 500.85524, L500.18136, L550.08301, L500.21755, L500.38733 ####[facility] BLPTEGZGDL7647 [place], [place] [address]Gc# [phone] CO2 [Moles/Vol] 18.0 mmol/L Low 21-32 [facility] Comment on above: Order Comment: Campu s: M Performed By: #### L 500.03153, L500.48541, L550.78830, L500.98633, L500.94811 ####[facility] [id number] [place], [place] [address]Tg# [phone] Creatinine [Mass/Vol] 1.02 mg/dL Normal 0.5-1.4 [facility] Comment on above: Order Comment: Campu s: M Result Comment: NOTE NEW NORMAL RANGE DUE TO REAGENT CHANGEPatients receiving either N-Acetylcysteine (NAC) orMetamizole prior to venipuncture, may have falsely depressedresults. Performed By: #### L 500.28601, L500.73651, L550.85825, L500.16812, L500.21933 ####[facility] VJZFBCFNKN2849 [place], [place] [address]On# [phone] Glucose [Mass/Vol] 93 mg/dL Normal 70-100 [facility] Comment on above: Order Comment: Campu s: M Result Comment: 70-1 00- Normal Fasting; 100-125 Impaired Fasting; greaterthan 126 on more than one result- Diabetes. ADA guidelines.Results may be falsely elevated after the administration ofSulfapyridine.Results may be falsely depressed after the administration ofSulfasalazine. Performed By: #### L 500.70041, L500.01851, L550.96294, L500.90442, L500.67686 ####[facility] LERLRMCAEU0656 [place], [place] [address]Uw# [phone] Potassium [Moles/Vol] 4.3 mmol/L Normal 3.5-5.1 [facility] Comment on above: Order Comment: Campu s: M Result Comment: Slig ht Hemolysis, Result may be affected. Performed By: #### L 500.47721, L500.17827, L550.72395, L500.69938, L500.20420 ####[facility] UAXHUAQYHC2639 [place], [place] [address]Tx# [phone] Sodium [Moles/Vol] 134 mmol/L Low 136-145 [facility] Comment on above: Order Comment: Campu s: M Performed By: #### L 500.60037, L500.42097, L550.75161, L500.02222, L500.95133 ####[facility] [id number] [place], [place] [address]Qo# [phone] Urea nitrogen [Mass/Vol] 21 mg/dL Normal 7- [facility] [place] Comment on above: Order Comment: Campu s: M Performed By: #### L 500.41825, L500.09260, L550.07971, L500.42875, L500.01509 ####[facility] [id number] [place], [place] [address]Ir# [phone] Urea nitrogen/Creatinine [Mass ratio] 21 mg/mg Normal 15- [facility] Comment on above: Order Comment: Campu s: M Performed By: #### L 500.87488, L500.73525, L550.90400, L500.72681, L500.50194 ####[facility] [id number] [place], [place] [address]Td# [phone] CBC W/DIFFon 11-16-2021 ANISO 2+ Normal [facility] Comment on above: Order Comment: Campu s: M Performed By: #### L 200.60684, L200.71539 ####[facility] [id number] [place] [address]Bn# [phone] BAND ABS 0.43 K/CU MM Normal [facility] Comment on above: Order Comment: Campu s: M Performed By: #### L 200.37292, L200.74866 ####[facility] [id number] [place] [address]Cp# [phone] Band form neutrophils/100 WBC (Bld) 1.0 % Normal 0-7 [facility] Comment on above: Order Comment: Campu s: M Performed By: #### L 200.95218, L200.49737 ####[facility] [id number] [place], [place] [address]Ip# [phone] DOHLE BODIES PRESENT Normal [facility] Comment on above: Order Comment: Campu s: M Performed By: #### L 200.58773, L200.42487 ####[facility] [id number] [place], [place] [address]Ju# [phone] HYPO 4+ Normal [facility] Comment on above: Order Comment: Campu s: M Performed By: #### L 200.86429, L200.46098 ####[address] [place], [place] [address]Qd# [phone] LYMPH ABS 41.52 K/CU MM High 0.9-4.4 [facility] Comment on above: Order Comment: Campu s: M Performed By: #### L 200.43398, L200.29568 ####[facility] OFHGZINBQH2263 [place], [place] [address]Yc# [phone] Lymphocytes/100 WBC (Bld) 97.0 % High 20-40 [facility] Comment on above: Order Comment: Campu s: M Performed By: #### L 200.06087, L200.64264 ####[facility] KHKIKJKEOO0549 [place], [place] [address]Jg# [phone] MICRO 1+ Normal [facility] Comment on above: Order Comment: Campu s: M Performed By: #### L 200.04809, L200.87540 ####[facility] IWBCKPPYSD7390 [place], [place] [address]Jj# [phone] NEUTROPHIL ABS 0.86 K/CU MM Low 2.0-8.3 [facility] Comment on above: Order Comment: Campu s: M Performed By: #### L 200.71237, L200.07075 ####[facility] RQKOKLJXVR4696 [place], [place] [address]Gi# [phone] Neutrophils/100 WBC (Bld) 2.0 % Low 45-75 [facility] Comment on above: Order Comment: Campu s: M Performed By: #### L 200.64498, L200.79648 ####[facility] RGEEFEWGOQ7653 [place], [place] [address]Ki# [phone] OVALOCYTES 2+ [facility] Comment on above: Order Comment: Campu s: M Performed By: #### L 200.76132, L200.40691 ####[facility] BRVKYCAEES7629 [place], [place] [address]If# [phone] PLT EST ADEQUATE Normal [facility] Comment on above: Order Comment: Campu s: M Performed By: #### L 200.81786, L200.66461 ####[facility] LGJZDQSLSJ4659 [place], [place] [address]Oh# [phone] PLT MORPH LARGE FORMS NOTED Normal [facility] Comment on above: Order Comment: Campu s: M Performed By: #### L 200.85543, L200.67817 ####[facility] JACRWIPECS8065 [place], [place] [address]Ts# [phone] POIK 3+ Normal [facility] Comment on above: Order Comment: Campu s: M Performed By: #### L 200.51785, L200.72285 ####[facility] ODKHXTCWHT7012 [place], [place] [address]Ws# [phone] POLY 1+ Normal [facility] Comment on above: Order Comment: Campu s: M Performed By: #### L 200.18686, L200.80666 ####[facility] ALKMBMCPWC9499 [place], [place] [address]Fq# [phone] SCHISTOCYTES 2+ Normal [facility] Comment on above: Order Comment: Campu s: M Performed By: #### L 200.92664, L200.12145 ####[facility] DBQCUJOSDQ9257 [place], [place] [address]Mv# [phone] Erythrocyte distribution width (RBC) [Ratio] 21.4 % High 11-14.5 [facility] Comment on above: Order Comment: Campu s: M Performed By: #### L 200.67061, L200.96004 ####[facility] TMWHMXPSKE1915 [place], [place] [address]Vv# [phone] Hematocrit (Bld) [Volume fraction] 40.2 % Low 41.0-53.0 [facility] Comment on above: Order Comment: Campu s: M Performed By: #### L 200.08803, L200.52423 ####[place] [address]Ph# [phone] Hemoglobin (Bld) [Mass/Vol] 11.0 g/dL Low 13.5-17.5 [facility] Comment on above: Order Comment: Campu s: M Performed By: #### L 200.91848, L200.56886 ####[facility] [address]ADVFPL[address] [place] [address]Ov# [phone] MCHC (RBC) [Mass/Vol] 27.4 g/dL Low 32.0-36.0 [facility] Comment on above: Order Comment: Campu s: M Performed By: #### L 200.37822, L200.41653 ####[facility] RXDFGTYDSZ[address] [place] [address]Xh# [phone] MCV (RBC) [Entitic vol] 69.3 fL Low 80.0-99.0 [facility] Comment on above: Order Comment: Campu s: M Performed By: #### L 200.85648, L200.22017 ####[facility] NPAFAFDVEL[address] [place] [address]Jk# [phone] Nucleated RBC/100 WBC (Bld) [Ratio] 0.0 % Normal Less than 1 [facility] Comment on above: Order Comment: Campu s: M Performed By: #### L 200.13065, L200.38348 ####[facility] USEQHRSENR0843 [place], [place] [address]Uu# [phone] Platelet mean volume (Bld) [Entitic vol] 10.2 fL Normal 9.4-12.4 [facility] Comment on above: Order Comment: Campu s: M Performed By: #### L 200.60598, L200.47398 ####[facility] HSQPMPRHVV0293 [place], [place] [address]An# [phone] PLT 348 K/CU MM Normal 150-450 [facility] Comment on above: Order Comment: Campu s: M Performed By: #### L 200.91328, L200.89052 ####[facility] AUULBNQRZH2697 [place], [place] [address]Ad# [phone] RBC 5.80 M/CU MM Normal 4.50-6.00 [facility] Comment on above: Order Comment: Campu s: M Performed By: #### L 200.70832, L200.21438 ####[facility] XFOGJRRGGE9188 [place], [place] [address]Br# [phone] WBC 42.8 K/CUMM Critically high 4.5-11.0 [facility] Comment on above: Order Comment: Campu s: M Result Comment: Conf irmed by slide estimate.. Critical result verified andhas been called to GERTRUDE Smith on 11/16/21 at 18:03, and has been read back. Performed By: #### L 200.13644, L200.45991 ####[facility] RETGGUBRQJ7091 [place], [place] [address]Du# [phone] CDIF PCRon 11-16-2021 CDIF PCR Positive Normal NEGATIVE [facility] Comment on above: Order Comment: Campu s: MSPECIMEN SOURCE: STOOL Result Comment: A po sitive C.Difficile molecular test does not differentiatebetween C.Difficile disease and carriers of C.Difficile. Useclinical judgement and reflex testing to determine treatmentoptions/disease state.RESULTS CALLED TO AND READ BACK BY SHASHANK UA/EDAT 202711/16/21 BY ARMIDA SANCHEZ Performed By: #### L 770.14848, L770.73233, L780.85474 ####[facility] NCMXRSNQPA4917 [place], [place] [address]Ot# [phone] CDIFF AG/TOXINon 11-16-2021 CDIFF AG/TOXIN Negative Normal NEGATIVE [facility] Comment on above: Order Comment: Alan s: MSPECIMEN SOURCE: STOOL Result Comment: Posi tive for toxigenic C.Difficile gene but active toxinproduction NOT detected. May be a colonized carrier, ortoxin level is below the limit of detection.RESULTS CALLED TO AND READ BACK BY SHASHANK UA/EDAT 202911/16/21 BY ARMIDA SANCHEZ Performed By: #### L 770.81264, L770.22536, L780.01837 ####[facility] DVDCXTYDYU1077 [place], [place] [address]Tf# [phone] CKon 11-16-2021 CK [Catalytic activity/Vol] 188 U/L Normal 26-192 [facility] Comment on above: Order Comment: Alan s: M Result Comment: Slig ht Hemolysis, Result may be affected.NOTE NEW NORMAL RANGE DUE TO REAGENT CHANGE Performed By: #### L 500.54894, L500.37634, L550.26751, L500.18769, L500.59908 ####[facility] GZJWJRJXLF8669 [place], [place] [address]Dl# [phone] CT ABD/PEL W IV CONTRAST ONL Yon 11-16-2021 CT ABD/PEL W IV CONTRAST ONLY Normal [facility] CT HEAD/BRAIN W/O CONon 10-30 CT HEAD/BRAIN W/O CON Normal [facility] GFR ESTon 11-16-2021 IF AMER Greater than 60 Normal [facility] Comment on above: Order Comment: Alan peres: M Performed By: #### L 500.11823, L500.37289, L550.45445, L500.74402, L500.34556 ####[facility] SWPSCWFYCK0218 [place], [place] [address]Me# [phone] IF non-AFR AMER Greater than 60 Normal [facility] Comment on above: Order Comment: Campu s: M Performed By: #### L 500.53552, L500.71056, L550.40783, L500.41860, L500.42489 ####[facility] HBYPRPWFVT7093 [place], [place] [address]Gn# [phone] GLUCOSE METERon 11-16-2021 Glucose [Mass/Vol] 98 mg/dL Normal 85-125 [facility] LACTATE BLOODon 11-16-2021 LACTATE BLOOD 7.76 MMOL/L High 0.40-2.00 [facility] Comment on above: Order Comment: Campu s: M Performed By: #### L 550.84825 ####[facility] WDVFAIYUCH5280 [place], [place] [address]Rm# [phone] LIVERon 11-16-2021 Albumin [Mass/Vol] 3.1 g/dL Low 3.2-5.0 [facility] Comment on above: Order Comment: Campu s: M Performed By: #### L 500.57699, L500.09286, L550.55218, L500.65856, L500.27475 ####[facility] AMABBGMKNL8745 [place], [place] [address]Qj# [phone] Albumin/Globulin [Mass ratio] 1.1 {ratio} Normal 0.8-2.0 [facility] Comment on above: Order Comment: Campu s: M Performed By: #### L 500.11302, L500.36209, L550.62789, L500.08082, L500.21102 ####[facility] YAYAKBYGDY5362 [place], [place] [address]Vk# [phone] ALK PHOS 80 U/L Normal 45-117 [facility] Comment on above: Order Comment: Campu s: M Performed By: #### L 500.88078, L500.18273, L550.92226, L500.07304, L500.59094 ####[facility] JSOWKWXOPO6742 [place], [place] [address]Kt# [phone] ALT [Catalytic activity/Vol] 23 U/L Normal 13-61 [facility] Comment on above: Order Comment: Campu s: M Result Comment: RESU LTS MAY BE FALSELY DEPRESSED AFTER THE ADMINISTRATION OFSULFASALAZINE AND/OR SULFAPYRIDINE. Performed By: #### L 500.19280, L500.82832, L550.35230, L500.86714, L500.79134 ####[facility] ASPBAXSSFG2673 [place] [address]Ph# [phone] AST [Catalytic activity/Vol] 55 U/L High 8-34 [facility] Comment on above: Order Comment: Campu s: M Result Comment: RESU LTS MAY BE FALSELY DEPRESSED AFTER THE ADMINISTRATION OFSULFASALAZINE AND/OR SULFAPYRIDINE. Performed By: #### L 500.09962, L500.34208, L550.30371, L500.81807, L500.35026 ####[facility] XCWDTBNMTF9134 [place], [place] [address]Ga# [phone] BILI DIRECT 0.3 MG/DL Normal 0.00-0.36 [facility] Comment on above: Order Comment: Martinu s: M Result Comment: NOTE NEW NORMAL RANGE DUE TO REAGENT CHANGE Performed By: #### L 500.00480, L500.82504, L550.24278, L500.22371, L500.58548 ####[facility] LIHHKBIQYN7406 [place], [place] [address]Wc# [phone] BILI TOTAL 0.80 MG/DL Normal 0.2-1.0 [facility] Comment on above: Order Comment: Martinu s: M Performed By: #### L 500.81312, L500.95114, L550.81308, L500.38197, L500.47085 ####[facility] VUMMLNDXPB2448 [place], [place] [address]Au# [phone] Globulin (S) [Mass/Vol] 2.8 g/dL Normal 2.2-4.2 [facility] Comment on above: Order Comment: Alan s: M Performed By: #### L 500.85187, L500.11778, L550.88937, L500.40942, L500.21979 ####[facility] DJCDCRKDUH6818 [place], [place] [address]Wk# [phone] Protein [Mass/Vol] 5.9 g/dL Low 6.0-8.5 [facility] Comment on above: Order Comment: Alan s: M Performed By: #### L 500.73921, L500.49703, L550.12738, L500.28678, L500.52631 ####[facility] TUVWCIFJLO3828 [place], [place] [address]Fx# [phone] PORTABLE CHESTon 11-16-2021 PORTABLE CHEST Normal [facility] PTon 11-16-2021 INR Coag (PPP) [Relative time] 1.46 {INR} High 0.9-1.1 [facility] Comment on above: Order Comment: Alan s: M Result Comment: Vicetne mmended PT INR therapeutic range for rodent exterminator andprophylactic therapy is 2.0 - 3.0. For heart valve andshunt patients the range is 2.5 - 3.5. Performed By: #### L 300.54005 ####[facility] YZHEPYTKZM8879 [place], [place] [address]Ea# [phone] PTS 15.6 SECONDS High 9.5-12.0 [facility] Comment on above: Order Comment: Alan s: M Performed By: #### L 300.72546 ####[facility] WNZNINMFLI0843 [place], [place] [address]Ak# [phone] RESP/COVID PCRon 11-16-2021 ADENOVIRUS PCR Not detected Normal NOT DETECTD [facility] Comment on above: Order Comment: Campu s: M Performed By: #### L 770.40027 ####[facility] MUMGRBCUPL3567 [place], [place] [address]Xt# [phone] B PARA PCR Not detected Normal NOT DETECTD [facility] Comment on above: Order Comment: Campu s: M Performed By: #### L 770.67688 ####[facility] CVRJRQDDBC[address] [place] [address]Xl# [phone] B PERTUSSIS PCR Not detected Normal NOT DETECTD [facility] Comment on above: Order Comment: Campu s: M Performed By: #### L 770.69963 ####[facility] HQNTLPBKFF[address]14[address] [place] [address]Xv# [phone] C PNEUMONIA PCR Not detected Normal NOT DETECTD [facility] Comment on above: Order Comment: Campu s: M Performed By: #### L 770.02226 ####[facility] [id number] [place] [address]Lk# [phone] CORONAVIR 229E Not detected Normal NOT DETECTD [facility] Comment on above: Order Comment: Campu s: M Performed By: #### L 770.03740 ####[facility] PMBVHAAVJW[address] [place] [address]Sb# [phone] CORONAVIR HKU1 Not detected Normal NOT DETECTD [facility] Comment on above: Order Comment: Campu s: M Performed By: #### L 770.94266 ####[facility] JFEOSPHMYM[address] [place] [address]Sc# [phone] CORONAVIR NL63 Not detected Normal [facility] DETECTD [facility] Comment on above: Order Comment: Campu s: M Performed By: #### L 770.36118 ####[facility] [id number] [place] [address]Ke# [phone] CORONAVIR OC43 Not detected Normal NOT DETECTD [facility] Comment on above: Order Comment: Campu s: M Performed By: #### L 770.07862 ####[facility] OTQKSXRRTZ7647 [place], [place] [address]Wp# [phone] FLU A NO SUBTYP Not detected Normal NOT DETECTD [facility] Comment on above: Order Comment: Martinu s: M Performed By: #### L 770.68160 ####[facility] TWILDSDIJL9246 [place], [place] [address]Uk# [phone] HUMAN METAPNEUM Not detected Normal NOT DETECTD [facility] Comment on above: Order Comment: Martinu s: M Performed By: #### L 770.04725 ####[facility] [id number] [place] [address]Ay# [phone] INFLUENZA A H1 Not detected Normal NOT DETECTD [facility] Comment on above: Order Comment: Martinu s: M Performed By: #### L 770.20916 ####[facility] [address]WNZYTAZLT[address] [place] [address]Eu# [phone] INFLUENZA A H3 Not detected Normal NOT DETECTD [facility] Comment on above: Order Comment: Martinu s: M Performed By: #### L 770.77657 ####[facility] ZUFEOUFKDI[address] [place] [address]Pq# [phone] INFLUENZA B PCR Not detected Normal NOT DETECTD [facility] Comment on above: Order Comment: Martinu s: M Performed By: #### L 770.37895 ####[facility] IVCNSRTTZC[address] [place] [address]Tj# [phone] M PNEUMONIA PCR Not detected Normal NOT DETECTD [facility] Comment on above: Order Comment: Martinu s: M Performed By: #### L 770.00978 ####[facility] IHCOPJPNUS[address] [place] [address]Oc# [phone] PARAINFLUENZA 1 Not detected Normal NOT DETECTD [facility] Comment on above: Order Comment: Martinu s: M Performed By: #### L 770.24953 ####[facility] OXUSDHKRFK[address] [place] [address]Zk# [phone] PARAINFLUENZA 2 Not detected Normal NOT DETECTD [facility] Comment on above: Order Comment: Campu s: M Performed By: #### L 770.31446 ####[facility] UDTOTHQFUL6502 [place], [place] [address]Px# [phone] PARAINFLUENZA 3 Not detected Normal NOT DETECTD [facility] Comment on above: Order Comment: Campu s: M Performed By: #### L 770.37907 ####[facility] [id number] [place] [address]Ey# [phone] PARAINFLUENZA 4 Not detected Normal NOT DETECTD [facility] Comment on above: Order Comment: Campu s: M Performed By: #### L 770.35183 ####[address] [address]Wy# [phone] RHINO/ENTERO Not detected Normal NOT DETECTD [facility] Comment on above: Order Comment: Campu s: M Performed By: #### L 770.73263 ####[facility] [id number] [place] [address]Bd# [phone] RSV Not detected Normal NOT DETECTD [facility] Comment on above: Order Comment: Campu s: M Performed By: #### L 770.95812 ####[address] [address]Vr# [phone] SARS-CoV-2 (COVID-19) RNA TIBURCIO+probe Ql (Unsp spec) Not detected Normal NOT DETECTD [facility] Comment on above: Order Comment: Campu s: M Result Comment: NANCY LTS CALLED TO AND READ BACK BY SHASHANK HENDERSON 192111/16/21 BY MIRLANDE PHELPSNegative results do not preclude SARS-CoV-2 infection andshould not be used as the sole basis for treatment or otherpatient management decisions. Negative results must becombined with clinical observation, patient history, andepidemiological information.This test was performed by PCR. Performed By: #### L 770.46930 ####[facility] TNBYODCEVJ5290 [place], [place] [address]Wq# [phone] STOOL PANEL GIon 11-16-2021 ADENOVIRUS PCR Not detected Normal NOTDETECTED [facility] Comment on above: Order Comment: Campu s: MSPECIMEN SOURCE: STOOL Performed By: #### L 770.62853, L770.34401, L780.27820 ####[facility] LBQESCIHOU2252 [place], [place] [address]Hm# [phone] ASTROVIRUS PCR Not detected Normal NOTDETECTED [facility] Comment on above: Order Comment: Campu s: MSPECIMEN SOURCE: STOOL Result Comment: Viru s, bacteria, and parasite nucleic acid may persist invivo independently of organism viability. Additionally, someorganisms may be carried asymptomatically. Detection oforganism targets does not imply that the correspondingorganisms are infections or are the causative agents forclinical symptoms. Performed By: #### L 770.87067, L770.66212, L780.09940 ####[facility] EOSCWYYNUN6266 [place], [place] [address]Ta# [phone] CAMPY Not detected Normal NOTDETECTED [facility] Comment [facility]: Order Comment: Campu s: MSPECIMEN SOURCE: STOOL Performed By: #### L 770.34786, L770.73454, L780.67131 ####[facility] MGMNJDYWEN7293 [place], [place] [address]Zn# [phone] CRYPTOSPORIDIUM Not detected Normal NOTDETECTED [facility] Comment on above: Order Comment: Campu s: MSPECIMEN SOURCE: STOOL Performed By: #### L 770.64144, L770.05583, L780.29990 ####[facility] CDAFYSRESH0318 [place], [place] [address]Va# [phone] CYCLOSPORA PCR Not detected Normal NOTDETECTED [facility] Comment on above: Order Comment: Campu s: MSPECIMEN SOURCE: STOOL Performed By: #### L 770.70525, L770.18338, L780.68916 ####[facility] SEPNLBJEZA3778 [place], [place] [address]Uz# [phone] E.COLI O157 PCR Not detected Normal NOTDETECTED [facility] Comment on above: Order Comment: Campu s: MSPECIMEN SOURCE: STOOL Performed By: #### L 770.43730, L770.87321, L780.25997 ####[facility] [id number] [place], [place] [address]Ph# [phone] E.HISTOLYTICA Not detected Normal NOTDETECTED [facility] Comment on above: Order Comment: Campu s: MSPECIMEN SOURCE: STOOL Performed By: #### L 770.27217, L770.15013, L780.99427 ####[facility] [id number] [place] [address]Yk# [phone] EAEC E COLI PCR Not detected Normal NOTDETECTED [facility] Comment on above: Order Comment: Campu s: MSPECIMEN SOURCE: STOOL Performed By: #### L 770.72018, L770.45366, L780.95103 ####[facility] [id number] [place], [place] [address]Ph# [phone] EPEC E COLI PCR Not detected Normal NOTDETECTED [facility] Comment on above: Order Comment: Campu s: MSPECIMEN SOURCE: STOOL Performed By: #### L 770.39202, L770.42793, L780.26702 ####[facility] [id number] [place] [address]Rz# [phone] ETEC E.COLI PCR Not detected Normal NOTDETECTED [facility] Comment on above: Order Comment: Campu s: MSPECIMEN SOURCE: STOOL Performed By: #### L 770.88742, L770.75724, L780.76991 ####[facility] [id number] [place], [place] [address]Ph# [phone] GIARDIA FREIRE PCR Not detected Normal NOTDETECTED [facility] Comment on above: Order Comment: Campu s: MSPECIMEN SOURCE: STOOL Performed By: #### L 770.88559, L770.22728, L780.22791 ####[facility] SUPOFEYERV8293 [place], [place] [address]Qb# [phone] NOROVIRUS PCR Not detected Normal NOTDETECTED [facility] Comment on above: Order Comment: Campu s: MSPECIMEN SOURCE: STOOL Performed By: #### L 770.75907, L770.85319, L780.12735 ####[facility] [id number] [place], [place] [address]Ph# [phone] PLESIOMONAS PCR Not detected Normal [facility]DETECTED [facility] Comment [facility]: Order Comment: Campu s: MSPECIMEN SOURCE: STOOL Performed By: #### L 770.48135, L770.73291, L780.26753 ####[facility] [id number] [place], [place] [address]Ph# [phone] ROTAVIRUS A PCR Not detected Normal [facility]DETECTED [facility] Comment on above: Order Comment: Campu s: MSPECIMEN SOURCE: STOOL Performed By: #### L 770.52894, L770.79875, L780.73566 ####[facility] [id number] [place], [place] [address]Ph# [phone] SALMONELLA PCR Not detected Normal NOTDETECTED [facility] Comment on above: Order Comment: Campu s: MSPECIMEN SOURCE: STOOL Performed By: #### L 770.42201, L770.99761, L780.94849 ####[facility] [id number] [place] [address]Mt# [phone] SAPOVIRUS PCR Not detected Normal NOTDETECTED [facility] [place] Comment on above: Order Comment: Campu s: MSPECIMEN SOURCE: STOOL Performed By: #### L 770.97020, L770.04576, L780.91090 ####[facility] [id number] [place], [place] [address]Ex# [phone] SHIGATOXIN ECOL Not detected Normal NOTDETECTED [facility] [place] Comment on above: Order Comment: Campu s: MSPECIMEN SOURCE: STOOL Performed By: #### L 770.54819, L770.74773, L780.02830 ####[facility] [id number] [place], [place] [address]Kb# [phone] SHIGELLA/EIEC Not detected Normal NOTDETECTED [facility] [place] Comment on above: Order Comment: Campu s: MSPECIMEN SOURCE: STOOL Performed By: #### L 770.38186, L770.14510, L780.12969 ####[facility] [id number] [place], [place] [address]Rg# [phone] V CHOLERAE PCR Not detected Normal NOTDETECTED [facility] [place] Comment on above: Order Comment: Campu s: MSPECIMEN SOURCE: STOOL Performed By: #### L 770.34678, L770.10948, L780.39051 ####[facility] [id number] [place] [address]Jy# [phone] VIBRIO PCR Not detected Normal NOTDETECTED [facility] [place] Comment on above: Order Comment: Campu s: MSPECIMEN SOURCE: STOOL Performed By: #### L 770.88645, L770.53956, L780.67479 ####[facility] [id number] [place], [place] [address]Gd# [phone] YERSINIA PCR Not detected Normal NOTDETECTED [facility] [place] Comment on above: Order Comment: Campu s: MSPECIMEN SOURCE: STOOL Performed By: #### L 770.58108, L770.78224, L780.59883 ####[facility] [id number] [place], [place] [address]Ah# [phone] TROPONIN Ion 11-16-2021 TROPONIN I 62.6 pg/mL Critically high 0-54 [facility] Comment on above: Order Comment: Campu s: M Result Comment: Crit ical Result(s) Called at: 18:10:41 on 11/16/2021 by olga. Called to and read back by: Ayush CASTELLON NEW NORMAL RANGE DUE TO REAGENT CHANGEThis assay uses different antibodies than our current assay,and assays, even by the same consulting marine engineer may recognizedifferent regions of the antibody and cannot be usedinterchangeably. Expect results of this assay to run higherthan the previous assay. Performed By: #### L 550.07865 ####[facility] [id number] [place], [place] [address]Id# [phone] UA COMPLETEon 11-16-2021 Color (U) Yellow Normal [facility] Comment on above: Order Comment: Campu s: M Performed By: #### L 600.84195 ####[facility] [id number] [place], [place] [address]Td# [phone] Glucose (U) [Mass/Vol] Negative Normal NORMAL Me [facility] Comment on above: Order Comment: Campu s: M Performed By: #### L 600.63623 ####[facility] [id number] [place] [address]Ec# [phone] Mucus Ql (Urine sed) TRACE Normal NEGATIVE [facility] Comment on above: Order Comment: Campu s: M Performed By: #### L 600.12140 ####[facility] [id number] [place], [place] [address]Gn# [phone] SQUAMOUS EPIS 2 EPI/HPF Normal 0-5 [facility] Comment on above: Order Comment: Campu s: M Performed By: #### L 600.00616 ####[facility] [id number] [place] [address]Ui# [phone] UA APPEARANCE Clear Normal CLEAR [facility] Comment on above: Order Comment: Campu s: M Performed By: #### L 600.55565 ####[facility] [id number] [place] [address]Rr# [phone] UA BACTERIA NONE Normal NONE [facility] Comment on above: Order Comment: Campu s: M Performed By: #### L 600.05229 ####[facility] [id number] [place] [address]Ti# [phone] UA BILIRUBIN Negative Normal NEGATIVE [facility] Comment on above: Order Comment: Campu s: M Performed By: #### L 600.39807 ####[facility] [id number] [place] [address]Pz# [phone] UA BLOOD MOD Normal NEGATIVE [facility] Comment on above: Order Comment: Campu s: M Performed By: #### L 600.45844 ####[address] [address]Th# [phone] UA KETONE Negative Normal NEGATIVE [facility] Comment on above: Order Comment: Campu s: M Performed By: #### L 600.82958 ####[facility] [id number] [place] [address]Hv# [phone] UA LK ESTERASE Negative Normal NEGATIVE [facility] Comment on above: Order Comment: Campu s: M Performed By: #### L 600.22391 ####[address] [address]Ox# [phone] UA NITRITE Negative Normal NEGATIVE [facility] Comment on above: Order Comment: Campu s: M Performed By: #### L 600.88087 ####[facility] [id number] [place] [address]Dv# [phone] UA PH 5.0 Normal 5-6 [facility] Comment on above: Order Comment: Campu s: M Performed By: #### L 600.53908 ####[facility] [id number] [place] [address]Uf# [phone] UA PROTEIN 30 Normal NEGATIVE [facility] Comment on above: Order Comment: Campu s: M Performed By: #### L 600.33430 ####[facility] [id number] [place] [address]Ru# [phone] UA RBC 53 RBC/HPF High 0-3 [facility] Comment on above: Order Comment: Campu s: M Performed By: #### L 600.24874 ####[facility] [id number] [place], [place] [address]Jg# [phone] UA SPEC GRAV 1.016 Normal 1.005-1.030 [facility] Comment on above: Order Comment: Campu s: M Performed By: #### L 600.30160 ####[facility] [id number] [place], [place] [address]Me# [phone] UA UROBILINOGEN Negative Normal NORMAL [facility] Comment on above: Order Comment: Campu s: M Performed By: #### L 600.26553 ####[facility] [id number] [place], [place] [address]Gz# [phone] UA WBC 2 WBC/HPF Normal 0-5 [facility] Comment on above: Order Comment: Campu s: M Performed By: #### L 600.91132 ####[facility] [id number] [place] [address]Wo# [phone] Blood schistocytes detection by light microscopyon 10-26-2021 Schistocytes LM Ql (Bld) 1+ [facility] Work Phone: Blood lymphocytes/100 leukoc yteson 10-12-2021 Lymphocytes/100 WBC (Bld) 86 % 19-41 [facility] Work Phone: Blood monocytes/100 leukocyt eson 10-12-2021 Monocytes/100 WBC (Bld) 3 % 0-10 [facility] Work Phone: [phone] Blood segmented neutrophils/ 100 leukocyteson 10-12-2021 Segmented neutrophils/100 WBC (Bld) 11 % 47-70 [facility] Work Phone: Total cell counton 2 Cells counted Molgen (Bld/Tiss) [#] 100 MANUAL DIFF [facility] Work Phone: [phone] Absolute lymphocyte counton 09-28-2021 Lymphocytes Auto (Unsp spec) [#/Vol] 110.36 10*3/uL 0.83-4.51 [facility] Work Phone: Basophil percentageon 2021 Basophils/100 WBC (Bld) 0.1 % 0-1 [facility] Work Phone: Bilirubin [Mass/Vol] 0.40 mg/dL 0.20-1.00 [facility] Work Phone: Comment on above: For patients on eltr ombopag therapy, use of Dimension Foley TBIL is not recommended. Chloride [Moles/Vol] 102 mmol/L 98-107 [facility] Work Phone: Eosinophils/100 WBC (Bld) 0.0 % 0-5 [facility] Work Phone: Glucose [Mass/Vol] 98 mg/dL 74-106 [facility] Work Phone: Neutrophils (Bld) [#/Vol] 9.1 10*3/uL 2.0-7.7 [facility] Work Phone: Neutrophils/100 WBC (Bld) 7.5 % 47-70 [facility] Work Phone: Potassium [Moles/Vol] 3.8 mmol/L 3.5-5.1 [facility] Work Phone: Protein [Mass/Vol] 6.4 g/dL 6.4-8.2 [facility] Work Phone: Sodium [Moles/Vol] 135 mmol/L 136-145 [facility] Work Phone: WBC (Bld) [#/Vol] 120.7 10*3/uL 4.4-11.0 [facility] Work Phone: Comment on above: CRITICAL VALUE VERIF IED. CALLED TO JAN CAMEJO (ONC)09/28/21 1252 Rosalio TranRESULTS READ BACK BY SAME. Blood erythrocytes count (nu mber/volume)on 09-28-2021 RBC (Bld) [#/Vol] 4.30 10*6/uL 4.6-6.2 [facility] Work Phone: Blood hemoglobin measurement (mass/volume)on 09-28-2021 Hemoglobin (Bld) [Mass/Vol] 7.0 g/dL 13.0-16.5 [facility] Work Phone: Blood lymphocytes/100 leukoc yteson 09-28-2021 Lymphocytes/100 WBC (Bld) 91.5 % 19-41 [facility] Work Phone: Blood manual differential co mment interpretation (narrative result)on 09-28-2021 Manual differential comment Kai (Bld) [Interp] COMMENT [facility] Work Phone: Comment on above: LYMPHOCYTOSIS NOTEDL EUKOCYTOSIS NOTED Blood monocytes/100 leukocyt eson 09-28-2021 Monocytes/100 WBC (Bld) 0.3 % 0-10 [facility] Work Phone: Blood platelet adequacy dete ction by light microscopyon 09-28-2021 Platelets LM Ql (Bld) ADEQUATE ADEQ [facility] Work Phone: Blood platelet mean volumeon 09-28-2021 Platelet mean volume (Bld) [Entitic vol] 9.3 fL 6.2-12.0 [facility] Work Phone: Determination of erythrocyte mean corpuscular volume (MCV)on 09-28-2021 MCV (RBC) [Entitic vol] 68.8 fL 80-94 [facility] Work Phone: [phone] Hematocrit Auto (Bld) [Volum e fraction]on 09-28-2021 Hematocrit (Bld) [Volume fraction] 29.6 % 40-54 [facility] Work Phone: Hemoglobin in reticulocytes (mass per reticulocyte)on 09-28-2021 Hemoglobin (Reticulocytes) [Entitic mass] 17.3 pg 30-35 [facility] Work Phone: Hypochromatic red blood cell detectionon 09-28-2021 Hypochromia Ql (Bld) 1+ [facility] Work Phone: [phone] Laboratory - Chemistry and C hemistry - challengeon 09-28-2021 ALP [Catalytic activity/Vol] 57 U/L 45-117 [facility] Work Phone: ALT [Catalytic activity/Vol] 12 U/L 16-61 [facility] Work Phone: CO2 [Moles/Vol] 26.0 mmol/L 21.0-32.0 [facility] Work Phone: Cobalamin (Vitamin B12) [Mass/Vol] 487 pg/mL 211-911 [facility] Work Phone: [phone] Globulin (S) [Mass/Vol] 3.3 g/dL 2.2-4.2 [facility] Work Phone: [phone] Urea nitrogen/Creatinine [Mass ratio] 20.4 mg/mg 10-20 [facility] Work Phone: [phone] Laboratory - Hematology and Cell countson 09-28-2021 Erythrocyte distribution width (RBC) [Entitic vol] 45.7 fL 35.1-43.9 [facility] Work Phone: [phone] Erythrocyte distribution width (RBC) [Ratio] 19.7 % 11.6-14.6 [facility] Work Phone: [phone] Immature granulocytes/100 WBC (Bld) 0.600 % 0.0-0.9 [facility] Work Phone: [phone] Comment on above: IG% - Immature Granu locytes (promyelocytes, myelocytes and metamyelocytes) > 1% indicates that a LEFT SHIFT is Present. MCH (RBC) [Entitic mass] 16.3 pg 27.0-32.0 [facility] Work Phone: Nucleated RBC/100 WBC (Bld) [Ratio] 0 % 0-5 [facility] Work Phone: [phone] MCHC Auto (RBC) [Mass/Vol]on 09-28-2021 MCHC (RBC) [Mass/Vol] 23.6 g/dL 32-36 [facility] Work Phone: No Panel Informationon 09-28 Estimated Creatinine Clearance Calc 145.04 ml/min [facility] Work Phone: Estimated GFR (MDRD) Amer 163 mL/min >60 [facility] Work Phone: Comment on above: GFR Calc Estimated GFR (MDRD) Non-Af Amer 135 mL/min >60 [facility] Work Phone: Comment on above: Non- GFR Calc Immature Reticulocyte Fraction 23.20 % 3.00-15.90 [facility] Work Phone: Reticulocyte Count 1.86 % 0.5-1.5 [facility] Work Phone: Platelets bldon 09-28-2021 Platelets (Bld) [#/Vol] 326 10*3/uL 150-450 [facility] Work Phone: Review by pathologiston 09-01 Pathologist review Kai (Unsp spec) [Interp] Reviewed [facility] Work Phone: Comment on above: Previous reported re sult: Jordyn novoa Edited by: PAULA on 09/29/21:1352Absolute lymphocytosis suggestive of low grade lympho-proliferative disorder.Severe Microcytic anemia.Clinical correlation is necessary. Onesimo Tony M.D. 09/29/21 AMENDED REPORT 09/29/21 1352 PATH REV previously reported as: Jordyn novoa Serum or plasma albumin martha urement (mass/volume)on 09-28-2021 Albumin [Mass/Vol] 3.1 g/dL 3.2-5.0 [facility] Work Phone: Serum or plasma albumin/glob ulin mass ratioon 09-28-2021 Albumin/Globulin [Mass ratio] 0.9 {ratio} 0.9-2.4 [facility] Work Phone: Serum or plasma calcium martha urement (mass/volume)on 09-28-2021 Calcium [Mass/Vol] 8.3 mg/dL 8.5-10.1 [facility] Work Phone: Serum or plasma creatinine m easurement (mass/volume)on 09-28-2021 Creatinine [Mass/Vol] 0.64 mg/dL 0.70-1.30 [facility] Work Phone: Comment on above: The validity of the calculated GFR & GFRAA in patients over 70 years has not been determined. Clinical correlation is essential. Serum or plasma folate measu rement (mass/volume)on 09-28-2021 Folate [Mass/Vol] 29.90 ng/mL 3.1-55.4 [facility] Work Phone: Serum or plasma urea nitroge n measurement (mass/volume)on 09-28-2021 Urea nitrogen [Mass/Vol] 13 mg/dL 7-18 [facility] Work Phone: Thin prep Papanicolaou smear with manual screeningon 09-28-2021 Thin prep Papanicolaou smear with manual screening 1+ [facility] Work Phone: Thin prep Papanicolaou smear with manual screening 7 U/L 15-37 [facility] Work Phone: Thin prep Papanicolaou smear with manual screening 7 5-15 [facility] Work Phone: Thin prep Papanicolaou smear with manual screening 136 U/L 87-241 [facility] Work Phone: Blood schistocytes detection by light microscopyon 09-14-2021 Schistocytes LM Ql (Bld) RARE [facility] Work Phone: Iron measurement (mass/mass) on 09-14-2021 Iron (Unsp spec) [Mass/Mass] 5 ug/dL 65-175 [facility] Work Phone: Laboratory - Hematology and Cell countson 09-14-2021 Anisocytosis Ql (Bld) 1+ [facility] Work Phone: No Panel Informationon 09-14 Total Iron Binding Capacity 272 ug/dL 250-450 [facility] Work Phone: Serum or plasma ferritin benitez surement (mass/volume)on 09-14-2021 Ferritin [Mass/Vol] 7 ng/mL 26-388 [facility] Work Phone: Serum or plasma iron saturat ion measurement (mass fraction)on 09-14-2021 Iron saturation [Mass fraction] 1.8 % 15.0-55.0 [facility] Work Phone: Blood polychromasia detectio n by light microscopyon 08-30-2021 Polychromasia LM Ql (Bld) RARE [facility] Work Phone: No Panel Informationon 08-16 Immature Platelet Fraction 3.2 % 1.0-7.9 [facility] Work Phone: Comment on above: Low PLT + Low IPF alcaraz ggest a bone marrow production disorderLow PLT + high IPF suggests peripheral destruction(e.g.ITP, TTP, HIT, DIC, autoimmune) or bone marrow recoveryTrending of serial IPF measurements is recommended when evaluating for bone marrow responesValue above normal range indicates an increase in RBC cellular response from bone marrow. Bacteria identified Anaer cx Nom (Unsp spec)on 08-12-2021 Anaerobic microbial culture No anaerobic bacteria isolated. [facility] Work Phone: Bacteria identified Cx Nom ( Wound)on 08-12-2021 Wound Culture Proteus mirabilis [facility] Work Phone: Wound Culture Escherichia coli [facility] Work Phone: Gram stain for investigation of transfusion reactionon 08-12-2021 Microscopic observation Gram stain Nom (Unsp spec) [facility] Work Phone: No Panel Informationon 08-01 Reactive Lymphocytes 1+ [facility] Work Phone: Blood lymphocytes/100 leukoc yteson 07-11-2021 Lymphocytes/100 WBC (Bld) 55 % 19-41 [facility] Work Phone: Blood monocytes/100 leukocyt eson 07-11-2021 Monocytes/100 WBC (Bld) 4 % 0-10 [facility] Work Phone: Blood segmented neutrophils/ 100 leukocyteson 07-11-2021 Segmented neutrophils/100 WBC (Bld) 37 % 47-70 [facility] Work Phone: Laboratory - Hematology and Cell countson 07-11-2021 Myelocytes/100 WBC (Bld) 4 % 0-0 [facility] Work Phone: Total cell counton 2 Cells counted Molgen (Bld/Tiss) [#] 100 MANUAL DIFF [facility] Work Phone: Bacteria identified Anaer cx Nom (Unsp spec)on 06-03-2021 Anaerobic Culture Anaerobic cocci [facility] Work Phone: Bacteria identified Cx Nom ( Wound)on 06-03-2021 Wound Culture Escherichia coli [facility] Work Phone: Wound Culture Proteus mirabilis [facility] Work Phone: Gram stain for investigation of transfusion reactionon 06-03-2021 Microscopic observation Gram stain Nom (Unsp spec) [facility] Work Phone: No Panel Informationon 05-25 Atypical Lymphocytes 3+ % [facility] Work Phone: Direct bilirubinon 1 Bilirubin.direct [Mass/Vol] 0.48 mg/dL 0.00-0.30 [facility] Work Phone: Macrocytes detectionon 03-24 Macrocytes Ql (Bld) 1+ [facility] Work Phone: Ovalocyte detectionon 2020 Ovalocytes LM Ql (Bld) RARE [facility] Work Phone: RBC morphologyon 03-24-2021 RBC morphology finding Nom (Bld) N CHROM NORMAL NORM C&C [facility] Work Phone: No Panel Information [facility] Vital Signs Date Time Vital Sign Value Performing Clinician Facility 01-30-2025 19:00-0400 Body temperature 98.7 [degF] Dr. Oliver Judge DO Work Phone: [facility] 01-30-2025 19:00-0400 Diastolic blood pressure 63 mm[Hg] Dr. Oliver Judge DO Work Phone: [facility] 01-30-2025 19:00-0400 Heart rate 112 /min Dr. Oliver Judge DO Work Phone: [facility] 01-30-2025 19:00-0400 Respiratory rate 17 /min Dr. Oliver Judge DO Work Phone: [phone] [place] [address] 01-30-2025 19:00-0400 SaO2% (BldA) [Mass fraction] 100 % Dr. Oliver Judge DO Work Phone: [facility] 01-30-2025 19:00-0400 Systolic blood pressure 117 mm[Hg] Dr. Oliver Judge DO Work Phone: [facility] 01-30-2025 15:51-0400 Body height 193.[address] Oliver Judge DO Work Phone: [phone] [place] [address] 01-30-2025 15:51-0400 Body mass index (BMI) [Ratio] 36.9 kg/m2 Dr. Oliver Judge DO Work Phone: [facility] 01-30-2025 15:51-0400 Body weight 137.[address] Oliver Judge DO Work Phone: [facility] 10-12-2022 10:54-0400 Body temperature 98.01 [degF] [facility] 10-12-2022 10:54-0400 Diastolic blood pressure 57 mm[Hg] [facility] 10-12-2022 10:54-0400 Heart rate 85 /min [facility] 10-12-2022 10:54-0400 Respiratory rate 17 /min [facility] 10-12-2022 10:54-0400 Systolic blood pressure 102 mm[Hg] [facility] 10-10-2022 08:26-0400 Body temperature 95.9 [degF] [facility] 10-10-2022 08:26-0400 Diastolic blood pressure 66 mm[Hg] [facility] 10-10-2022 08:26-0400 Heart rate 80 /min [facility] 10-10-2022 08:26-0400 Respiratory rate 18 /min [facility] 10-10-2022 08:26-0400 Systolic blood pressure 119 mm[Hg] [facility] 07-10-2022 10:56-0500 Body temperature 97.59 [degF] [facility] 07-10-2022 10:56-0500 Diastolic blood pressure 58 mm[Hg] [facility] 07-10-2022 10:56-0500 Heart rate 70 /min [facility] 07-10-2022 10:56-0500 Systolic blood pressure 116 mm[Hg] [facility] 07-10-2022 09:12-0500 Respiratory rate 16 /min [facility] 07-07-2022 08:15-0500 Body temperature 97.5 [degF] [facility] 07-07-2022 08:15-0500 Diastolic blood pressure 69 mm[Hg] [facility] 07-07-2022 08:15-0500 Heart rate 89 /min [facility] 07-07-2022 08:15-0500 Respiratory rate 16 /min [facility] 07-07-2022 08:15-0500 Systolic blood pressure 127 mm[Hg] [facility] 06-22-2022 11:46-0500 Body temperature 97.5 [degF] [facility] 06-22-2022 11:46-0500 Diastolic blood pressure 68 mm[Hg] [facility] 06-22-2022 11:46-0500 Heart rate 70 /min [facility] 06-22-2022 11:46-0500 Respiratory rate 16 /min [facility] 06-22-2022 11:46-0500 Systolic blood pressure 127 mm[Hg] [facility] 01-18-2022 14:34-0400 Body height 194.[address] Marlon Michaud Work Phone: [facility] Work Phone: 01-18-2022 14:34-0400 Body temperature 97.6 [degF] Dr. Marlon Michaud Work Phone: [facility] Work Phone: 01-18-2022 14:34-0400 Diastolic blood pressure 70 mm[Hg] Dr. Marlon Michaud Work Phone: [facility] Work Phone: 01-18-2022 14:34-0400 Heart rate 89 /min Dr. Marlon Michaud Work Phone: [facility] Work Phone: 01-18-2022 14:34-0400 Respiratory rate 17 /min Dr. Marlon Michaud Work Phone: [facility] Work Phone: 01-18-2022 14:34-0400 SaO2% (BldA) [Mass fraction] 98 % Dr. Marlon Michaud Work Phone: [facility] Work Phone: 01-18-2022 14:34-0400 Systolic blood pressure 124 mm[Hg] Dr. Marlon Michaud Work Phone: [facility] Work Phone: 01-06-2022 09:07-0400 Body mass index (BMI) [Ratio] 25.6 kg/m2 Dr. Marlon Michaud Work Phone: [facility] Work Phone: 01-06-2022 09:07-0400 Body temperature 96.2 [degF] Dr. Marlon Michaud Work Phone: [facility] Work Phone: 01-06-2022 09:07-0400 Diastolic blood pressure 64 mm[Hg] Dr. Marlon Michaud Work Phone: [facility] Work Phone: 01-06-2022 09:07-0400 Heart rate 74 /min Dr. Marlon Michaud Work Phone: [facility] Work Phone: 01-06-2022 09:07-0400 Systolic blood pressure 97 mm[Hg] Dr. Marlon Michaud Work Phone: [facility] Work Phone: 12-26-2021 11:52-0400 Body temperature 97.4 [degF] Dr. Marlon Michaud Work Phone: [facility] Work Phone: 12-26-2021 11:52-0400 Diastolic blood pressure 63 mm[Hg] Dr. Marlon Michaud Work Phone: [facility] Work Phone: 12-26-2021 11:52-0400 Heart rate 79 /min Dr. Marlon Michaud Work Phone: [facility] Work Phone: 12-26-2021 11:52-0400 Respiratory rate 16 /min Dr. Marlon Michaud Work Phone: [facility] Work Phone: 12-26-2021 11:52-0400 SaO2% (BldA) [Mass fraction] 99 % Dr. Marlon Michaud Work Phone: [facility] Work Phone: 12-26-2021 11:52-0400 Systolic blood pressure 106 mm[Hg] Dr. Marlon Michaud Work Phone: [facility] Work Phone: 11-09-2021 15:26-0400 Body temperature 97.3 [degF] Dr. Marlon Michaud Work Phone: [facility] Work Phone: 11-09-2021 15:26-0400 Diastolic blood pressure 64 mm[Hg] Dr. Marlon Michaud Work Phone: [facility] Work Phone: 11-09-2021 15:26-0400 Heart rate 97 /min Dr. Marlon Michaud Work Phone: [facility] Work Phone: 11-09-2021 15:26-0400 Respiratory rate 16 /min Dr. Marlon Michaud Work Phone: [facility] Work Phone: 11-09-2021 15:26-0400 SaO2% (BldA) [Mass fraction] 99 % Dr. Marlon Michaud Work Phone: [facility] Work Phone: 11-09-2021 15:26-0400 Systolic blood pressure 129 mm[Hg] Dr. Marlon Michaud Work Phone: [facility] Work Phone: 11-09-2021 13:15-0400 Body mass index (BMI) [Ratio] 26.4 kg/m2 Dr. Marlon iMchaud Work Phone: [facility] Work Phone: 11-09-2021 13:15-0400 Body weight 99.[address] Marlon Michaud Work Phone: [facility] Work Phone: 10-30-2021 00:16-0400 Body weight 97.[address] Marlon Michaud Work Phone: [facility] Work Phone: 10-30-2021 00:16-0400 Respiratory rate 18 /min Dr. Marlon Michaud Work Phone: [facility] Work Phone: 10-26-2021 13:26-0400 Body mass index (BMI) [Ratio] 27.2 kg/m2 Dr. Marlon Michaud Work Phone: [facility] Work Phone: 10-26-2021 13:26-0400 Body temperature 98.3 [degF] Dr. Marlon Michaud Work Phone: [facility] Work Phone: 10-26-2021 13:26-0400 Body weight 102.[address] Marlon Michaud Work Phone: [facility] Work Phone: 10-26-2021 13:26-0400 Diastolic blood pressure 81 mm[Hg] Dr. Marlon Michaud Work Phone: [facility] Work Phone: 10-26-2021 13:26-0400 Heart rate 65 /min Dr. Marlon Michaud Work Phone: [facility] Work Phone: 10-26-2021 13:26-0400 Respiratory rate 16 /min Dr. Marlon Michaud Work Phone: [facility] Work Phone: 10-26-2021 13:26-0400 SaO2% (BldA) [Mass fraction] 100 % Dr. Marlon Michaud Work Phone: [facility] Work Phone: 10-26-2021 13:26-0400 Systolic blood pressure 153 mm[Hg] Dr. Marlon Michaud Work Phone: [facility] Work Phone: 10-21-2021 09:27-0400 Body mass index (BMI) [Ratio] 25.6 kg/m2 Dr. Marlon Michaud Work Phone: [facility] Work Phone: 10-21-2021 09:27-0400 Body temperature 96.5 [degF] Dr. Marlon Michaud Work Phone: [facility] Work Phone: 10-21-2021 09:27-0400 Diastolic blood pressure 75 mm[Hg] Dr. Marlon Michaud Work Phone: [facility] Work Phone: 10-21-2021 09:27-0400 Heart rate 63 /min Dr. Marlon Michaud Work Phone: [facility] Work Phone: 10-21-2021 09:27-0400 Systolic blood pressure 141 mm[Hg] Dr. Marlon Michaud Work Phone: [facility] Work Phone: 10-12-2021 13:04-0400 Body mass index (BMI) [Ratio] 26.6 kg/m2 Dr. Marlon Michaud Work Phone: [facility] Work Phone: 10-12-2021 13:04-0400 Body temperature 98.2 [degF] Dr. Marlon Michaud Work Phone: [facility] Work Phone: 10-12-2021 13:04-0400 Body weight 100.[address] Marlon Michaud Work Phone: [facility] Work Phone: 10-12-2021 13:04-0400 Diastolic blood pressure 77 mm[Hg] Dr. Marlon Michaud Work Phone: [facility] Work Phone: 10-12-2021 13:04-0400 Heart rate 87 /min Dr. Marlon Michaud Work Phone: [facility] Work Phone: 10-12-2021 13:04-0400 Respiratory rate 16 /min Dr. Marlon Michaud Work Phone: [facility] Work Phone: 10-12-2021 13:04-0400 SaO2% (BldA) [Mass fraction] 99 % Dr. Marlon Michaud Work Phone: [facility] Work Phone: 10-12-2021 13:04-0400 Systolic blood pressure 164 mm[Hg] Dr. Marlon Michaud Work Phone: [facility] Work Phone: 09-30-2021 00:13-0400 Body weight 97.[address] Marlon Michaud Work Phone: [facility] Work Phone: 09-30-2021 00:13-0400 Respiratory rate 18 /min Dr. Marlon Michaud Work Phone: [facility] Work Phone: 09-28-2021 16:08-0400 Diastolic blood pressure 76 mm[Hg] Dr. Marlon Michaud Work Phone: [facility] Work Phone: 09-28-2021 16:08-0400 Heart rate 92 /min Dr. Marlon Michaud Work Phone: [facility] Work Phone: 09-28-2021 16:08-0400 Respiratory rate 16 /min Dr. Marlon Michaud Work Phone: [facility] Work Phone: 09-28-2021 16:08-0400 SaO2% (BldA) [Mass fraction] 100 % Dr. Marlon Michaud Work Phone: [facility] Work Phone: 09-28-2021 16:08-0400 Systolic blood pressure 132 mm[Hg] Dr. Marlon Michaud Work Phone: [facility] Work Phone: 09-28-2021 14:31-0400 Body mass index (BMI) [Ratio] 26.8 kg/m2 Dr. Marlon Michaud Work Phone: [facility] Work Phone: 09-28-2021 14:31-0400 Body temperature 96.7 [degF] Dr. Marlon Michaud Work Phone: [facility] Work Phone: 09-28-2021 13:03-0400 Body height 194.[address] Marlon Michaud Work Phone: [facility] Work Phone: 09-28-2021 13:03-0400 Body mass index (BMI) [Ratio] 26.4 kg/m2 Dr. Marlon Michaud Work Phone: [facility] Work Phone: 09-28-2021 13:03-0400 Body temperature 98.2 [degF] Dr. Marlon Michaud Work Phone: [facility] Work Phone: 09-28-2021 13:03-0400 Body weight 99.[address] Marlon Michaud Work Phone: [facility] Work Phone: 09-28-2021 13:03-0400 Diastolic blood pressure 77 mm[Hg] Dr. Marlon Michaud Work Phone: [facility] Work Phone: 09-28-2021 13:03-0400 Heart rate 92 /min Dr. Marlon Michaud Work Phone: [facility] Work Phone: 09-28-2021 13:03-0400 Respiratory rate 16 /min Dr. Marlon Michaud Work Phone: [facility] Work Phone: 09-28-2021 13:03-0400 SaO2% (BldA) [Mass fraction] 100 % Dr. Marlon Michaud Work Phone: [facility] Work Phone: 09-28-2021 13:03-0400 Systolic blood pressure 131 mm[Hg] Dr. Marlon Michaud Work Phone: [facility] Work Phone: 09-14-2021 15:03-0400 Body mass index (BMI) [Ratio] 27.1 kg/m2 Dr. Marlon Michaud Work Phone: [facility] Work Phone: 09-14-2021 15:03-0400 Body temperature 98.7 [degF] Dr. Marlon Michaud Work Phone: [facility] Work Phone: 09-14-2021 15:03-0400 Body weight 102.[address] Marlon Michaud Work Phone: [facility] Work Phone: 09-14-2021 15:03-0400 Diastolic blood pressure 86 mm[Hg] Dr. Marlon Michaud Work Phone: [facility] Work Phone: 09-14-2021 15:03-0400 Heart rate 85 /min Dr. Marlon Michaud Work Phone: [facility] Work Phone: 09-14-2021 15:03-0400 Respiratory rate 16 /min Dr. Marlon Michaud Work Phone: [facility] Work Phone: 09-14-2021 15:03-0400 SaO2% (BldA) [Mass fraction] 99 % Dr. Marlon Michaud Work Phone: [facility] Work Phone: 09-14-2021 15:03-0400 Systolic blood pressure 152 mm[Hg] Dr. Marlon Michaud Work Phone: [facility] Work Phone: 09-09-2021 08:20-0500 Body mass index (BMI) [Ratio] 25.6 kg/m2 Dr. Marlon Michaud Work Phone: [facility] Work Phone: 09-09-2021 08:20-0500 Body temperature 99.1 [degF] Dr. Marlon Michaud Work Phone: [facility] Work Phone: 09-09-2021 08:20-0500 Diastolic blood pressure 63 mm[Hg] Dr. Marlon Michaud Work Phone: [facility] Work Phone: 09-09-2021 08:20-0500 Heart rate 113 /min Dr. Marlon Michaud Work Phone: [facility] Work Phone: 09-09-2021 08:20-0500 Systolic blood pressure 135 mm[Hg] Dr. Marlon Michaud Work Phone: [facility] Work Phone: 08-30-2021 13:38-0500 Body mass index (BMI) [Ratio] 26.7 kg/m2 Dr. Marlon Michaud Work Phone: [facility] Work Phone: 08-30-2021 13:38-0500 Body temperature 98.2 [degF] Dr. Marlon Michaud Work Phone: [facility] Work Phone: 08-30-2021 13:38-0500 Body weight 100.[address] Marlon Michaud Work Phone: [facility] Work Phone: 08-30-2021 13:38-0500 Diastolic blood pressure 69 mm[Hg] Dr. Marlon Michaud Work Phone: [facility] Work Phone: 08-30-2021 13:38-0500 Heart rate 61 /min Dr. Marlon Michaud Work Phone: [facility] Work Phone: 08-30-2021 13:38-0500 Respiratory rate 16 /min Dr. Marlon Michaud Work Phone: [facility] Work Phone: 08-30-2021 13:38-0500 SaO2% (BldA) [Mass fraction] 97 % Dr. Marlon Michaud Work Phone: [facility] Work Phone: 08-30-2021 13:38-0500 Systolic blood pressure 137 mm[Hg] Dr. Marlon Michaud Work Phone: [facility] Work Phone: 08-29-2021 23:08-0500 Body weight 97.[address] Marlon Michaud Work Phone: [facility] Work Phone: 08-29-2021 23:08-0500 Respiratory rate 18 /min Dr. Marlon Michaud Work Phone: [facility] Work Phone: 08-23-2021 11:58-0500 Body mass index (BMI) [Ratio] 26.4 kg/m2 Dr. Marlon Michaud Work Phone: [facility] Work Phone: 08-23-2021 11:58-0500 Body temperature 97.7 [degF] Dr. Marlon Michaud Work Phone: [facility] Work Phone: 08-23-2021 11:58-0500 Body weight 100.[address] Marlon Michaud Work Phone: [facility] Work Phone: 08-23-2021 11:58-0500 Diastolic blood pressure 79 mm[Hg] Dr. Marlon Michaud Work Phone: [facility] Work Phone: 08-23-2021 11:58-0500 Heart rate 69 /min Dr. Marlon Michaud Work Phone: [facility] Work Phone: 08-23-2021 11:58-0500 Respiratory rate 16 /min Dr. Marlon Michaud Work Phone: [facility] Work Phone: 08-23-2021 11:58-0500 SaO2% (BldA) [Mass fraction] 100 % Dr. Marlon Michaud Work Phone: [facility] Work Phone: 08-23-2021 11:58-0500 Systolic blood pressure 163 mm[Hg] Dr. Marlon Michaud Work Phone: [facility] Work Phone: 08-16-2021 12:23-0500 Body mass index (BMI) [Ratio] 26.5 kg/m2 Dr. Marlon Michaud Work Phone: [facility] Work Phone: 08-16-2021 12:23-0500 Body temperature 98.5 [degF] Dr. Marlon Michaud Work Phone: [facility] Work Phone: 08-16-2021 12:23-0500 Body weight 100.[address] Marlon Michaud Work Phone: [facility] Work Phone: 08-16-2021 12:23-0500 Diastolic blood pressure 79 mm[Hg] Dr. Marlon Michaud Work Phone: [facility] Work Phone: 08-16-2021 12:23-0500 Heart rate 65 /min Dr. Marlon Michaud Work Phone: [facility] Work Phone: 08-16-2021 12:23-0500 Respiratory rate 16 /min Dr. Marlon Michaud Work Phone: [facility] Work Phone: 08-16-2021 12:23-0500 SaO2% (BldA) [Mass fraction] 100 % Dr. Marlon Michaud Work Phone: [facility] Work Phone: 08-16-2021 12:23-0500 Systolic blood pressure 161 mm[Hg] Dr. Marlon Michaud Work Phone: [facility] Work Phone: 08-12-2021 08:38-0500 Body mass index (BMI) [Ratio] 25.6 kg/m2 Dr. Marlon Michaud Work Phone: [facility] Work Phone: 08-12-2021 08:38-0500 Body temperature 97 [degF] Dr. Marlon Michaud Work Phone: [facility] Work Phone: 08-12-2021 08:38-0500 Diastolic blood pressure 66 mm[Hg] Dr. Marlon Michaud Work Phone: [facility] Work Phone: 08-12-2021 08:38-0500 Heart rate 79 /min Dr. Marlon Michaud Work Phone: [facility] Work Phone: 08-12-2021 08:38-0500 Respiratory rate 18 /min Dr. Marlon Michaud Work Phone: [facility] Work Phone: 08-12-2021 08:38-0500 Systolic blood pressure 158 mm[Hg] Dr. Marlon Michaud Work Phone: [facility] Work Phone: 08-09-2021 11:54-0500 Body mass index (BMI) [Ratio] 26.6 kg/m2 Dr. Marlon Michaud Work Phone: [facility] Work Phone: 08-09-2021 11:54-0500 Body temperature 97.5 [degF] Dr. Marlon Michaud Work Phone: [facility] Work Phone: 08-09-2021 11:54-0500 Body weight 100.[address] Marlon Michaud Work Phone: [facility] Work Phone: 08-09-2021 11:54-0500 Diastolic blood pressure 85 mm[Hg] Dr. Marlon Michaud Work Phone: [facility] Work Phone: 08-09-2021 11:54-0500 Heart rate 67 /min Dr. Marlon Michaud Work Phone: [facility] Work Phone: 08-09-2021 11:54-0500 Respiratory rate 16 /min Dr. Marlon Michaud Work Phone: [facility] Work Phone: 08-09-2021 11:54-0500 SaO2% (BldA) [Mass fraction] 100 % Dr. Marlon Michaud Work Phone: [facility] Work Phone: 08-09-2021 11:54-0500 Systolic blood pressure 155 mm[Hg] Dr. Marlon Michaud Work Phone: [facility] Work Phone: 08-01-2021 13:15-0500 Body mass index (BMI) [Ratio] 25.9 kg/m2 Dr. Marlon Michaud Work Phone: [facility] Work Phone: 08-01-2021 13:15-0500 Body temperature 98.1 [degF] Dr. Marlon Michaud Work Phone: [facility] Work Phone: 08-01-2021 13:15-0500 Body weight 98.[address] Marlon Michaud Work Phone: [facility] Work Phone: 08-01-2021 13:15-0500 Diastolic blood pressure 77 mm[Hg] Dr. Marlon Michaud Work Phone: [facility] Work Phone: 08-01-2021 13:15-0500 Heart rate 103 /min Dr. Marlon Michaud Work Phone: [facility] Work Phone: 08-01-2021 13:15-0500 Respiratory rate 15 /min Dr. Marlon Michaud Work Phone: [facility] Work Phone: 08-01-2021 13:15-0500 SaO2% (BldA) [Mass fraction] 100 % Dr. Marlon Michaud Work Phone: [facility] Work Phone: 08-01-2021 13:15-0500 Systolic blood pressure 142 mm[Hg] Dr. Marlon Michaud Work Phone: [facility] Work Phone: 07-11-2021 12:53-0500 Body mass index (BMI) [Ratio] 25.9 kg/m2 Dr. Marlon Michaud Work Phone: [facility] Work Phone: 07-11-2021 12:53-0500 Body temperature 97.9 [degF] Dr. Marlon Michaud Work Phone: [facility] Work Phone: 07-11-2021 12:53-0500 Body weight 97.[address] Marlon Michaud Work Phone: [facility] Work Phone: 07-11-2021 12:53-0500 Diastolic blood pressure 71 mm[Hg] Dr. Marlon Michaud Work Phone: [facility] Work Phone: 07-11-2021 12:53-0500 Heart rate 84 /min Dr. Marlon Michaud Work Phone: [facility] Work Phone: 07-11-2021 12:53-0500 Respiratory rate 16 /min Dr. Marlon Michaud Work Phone: [facility] Work Phone: 07-11-2021 12:53-0500 SaO2% (BldA) [Mass fraction] 98 % Dr. Marlon Michaud Work Phone: [facility] Work Phone: 07-11-2021 12:53-0500 Systolic blood pressure 124 mm[Hg] Dr. Marlon Michaud Work Phone: [facility] Work Phone: 07-01-2021 23:05-0500 Body weight 97.[address] Marlon Michaud Work Phone: [facility] Work Phone: 06-16-2021 10:21-0500 Body mass index (BMI) [Ratio] 25.9 kg/m2 Dr. Marlon Michaud Work Phone: [facility] Work Phone: 06-16-2021 10:21-0500 Body temperature 99.8 [degF] Dr. Marlon Michaud Work Phone: [facility] Work Phone: 06-16-2021 10:21-0500 Body weight 98.[address] Marlon Michaud Work Phone: [facility] Work Phone: 06-16-2021 10:21-0500 Diastolic blood pressure 82 mm[Hg] Dr. Marlon Michaud Work Phone: [facility] Work Phone: 06-16-2021 10:21-0500 Heart rate 86 /min Dr. Marlon Michaud Work Phone: [facility] Work Phone: 06-16-2021 10:21-0500 Respiratory rate 16 /min Dr. Marlon Michaud Work Phone: [facility] Work Phone: 06-16-2021 10:21-0500 SaO2% (BldA) [Mass fraction] 99 % Dr. Marlon Michaud Work Phone: [facility] Work Phone: 06-16-2021 10:21-0500 Systolic blood pressure 148 mm[Hg] Dr. Marlon Michaud Work Phone: [facility] Work Phone: 06-03-2021 08:18-0500 Body mass index (BMI) [Ratio] 25.6 kg/m2 Dr. Marlon Michaud Work Phone: [facility] Work Phone: 06-03-2021 08:18-0500 Body temperature 97.8 [degF] Dr. Marlon Michaud Work Phone: [facility] Work Phone: 06-03-2021 08:18-0500 Diastolic blood pressure 71 mm[Hg] Dr. Marlon Michaud Work Phone: [facility] Work Phone: 06-03-2021 08:18-0500 Heart rate 94 /min Dr. Marlon Michaud Work Phone: [facility] Work Phone: 06-03-2021 08:18-0500 Respiratory rate 18 /min Dr. Marlon Michaud Work Phone: [facility] Work Phone: 06-03-2021 08:18-0500 Systolic blood pressure 136 mm[Hg] Dr. Marlon Michaud Work Phone: [facility] Work Phone: 06-02-2021 09:59-0500 Body mass index (BMI) [Ratio] 25.4 kg/m2 Dr. Marlon Michaud Work Phone: [facility] Work Phone: 06-02-2021 09:59-0500 Body temperature 99.1 [degF] Dr. Marlon Michaud Work Phone: [facility] Work Phone: 06-02-2021 09:59-0500 Body weight 96.[address] Marlon Michaud Work Phone: [facility] Work Phone: 06-02-2021 09:59-0500 Diastolic blood pressure 81 mm[Hg] Dr. Marlon Michaud Work Phone: [facility] Work Phone: 06-02-2021 09:59-0500 Heart rate 84 /min Dr. Marlon Michaud Work Phone: [facility] Work Phone: 06-02-2021 09:59-0500 Respiratory rate 16 /min Dr. Marlon Michaud Work Phone: [facility] Work Phone: 06-02-2021 09:59-0500 SaO2% (BldA) [Mass fraction] 98 % Dr. Marlon Michaud Work Phone: [facility] Work Phone: 06-02-2021 09:59-0500 Systolic blood pressure 153 mm[Hg] Dr. Marlon Michaud Work Phone: [facility] Work Phone: 05-12-2021 10:44-0500 Body weight 101.[address] Mralon Michaud Work Phone: [facility] Work Phone: 05-02-2021 00:05-0400 Body weight 97.[address] Marlon Michaud Work Phone: [facility] Work Phone: Encounters Encounter Date Encounter Type Care Provider Facility Start: 01-30-2025 Evaluation and management of inpatient Dr. Rosalio Juarez DO -Progressive Care Unit Work Phone: Start: 11-27-2024 End: 11-27-2024 Specialty Pharmacy [facility] Comment on above: SPP Inflammatory Con ditions - Medication Refill (Cosentyx) Start: 10-31-2024 End: 10-31-2024 Refill Alicia Wilson MD Work Phone: [facility] Comment on above: Refill Request Start: 10-20-2024 End: 10-20-2024 ambulatory Taylor [facility]illa [facility] Start: 10-20-2024 End: 10-20-2024 Follow-up encounter Taylor Montilla [facility] Comment on above: SPP Inflammatory Con ditions - Follow-up (Cosentyx); [place] ([place] Start: 08-18-2024 End: 08-18-2024 [facility] Comment on above: SPP Inflammatory Con ditions - Medication Refill (Cosentyx) Start: 08-03-2024 End: 08-04-2024 Emergency department patient visit Sapna Hurst Facility:[facility] Start: 07-15-2024 End: 07-17-2024 ambulatory ABHIJEET FAULKNER Facility:[facility] Start: 07-15-2024 End: 07-15-2024 Patient encounter procedure Abhijeet Faulkner MD, PhD Work Phone: Dermatology Comment on above: Disturbance of skin sensation (Primary Dx); Rash and nonspecific skin eruption; Hidradenitis suppurativa; Pruritus; Peripheral edema Start: 07-14-2024 End: 07-14-2024 Specialty Pharmacy [facility] Comment on above: SPP Inflammatory Con ditions - Medication Refill (Cosentyx) Start: 06-30-2024 End: 06-30-2024 Patient encounter procedure Jeremy Armendariz MD Work Phone: Dermatology Comment on above: Dyschromia (Primary Dx); Hyperpigmentation of skin; Disturbance of skin sensation; Rash and nonspecific skin eruption Start: 06-30-2024 End: 06-30-2024 ambulatory JEREMY ARMENDARIZ Facility:[facility] Start: 06-13-2024 End: 06-13-2024 ambulatory [facility] Start: 06-13-2024 End: 06-13-2024 Follow-up encounter Taylor Den [facility] Comment on above: SPP Inflammatory Con ditions - Follow-up (Cosentyx); Insurance Authorization ([place] renewal approved ) Start: 05-14-2024 End: 05-14-2024 Patient encounter procedure Oren Braun MD Work Phone: Dermatology Comment on above: Rash and nonspecific skin eruption (Primary Dx); Hyperpigmentation of skin; Stasis dermatitis Start: 05-14-2024 End: 07-09-2024 Telephone encounter Abhijeet Faulkner MD, PhD Work Phone: Dermatology Comment on above: Appointment Start: 05-14-2024 End: 05-14-2024 ambulatory OREN BRAUN Facility:[facility] Start: 04-22-2024 End: 04-22-2024 ambulatory EMELYN MACHADO Facility:[facility] Start: 04-22-2024 End: 04-22-2024 Patient encounter procedure Emelyn Machado MD Work Phone: Dermatology Comment on above: Hidradenitis suppura tiva (Primary Dx); Dissecting cellulitis of scalp; Stasis dermatitis Refill Request Start: 04-01-2024 End: 04-01-2024 Patient encounter procedure Milagros Patel MD Work Phone: Dermatology Comment on above: NO SHOW (Primary Dx) Start: 03-25-2024 End: 03-25-2024 Specialty Pharmacy [facility] Work Phone: [facility] Special[facility] Pharm[facility] Comment on above: SPP Inflammatory Con ditions - Medication Refill (Cosentyx ) Start: 03-11-2024 End: 03-11-2024 Orders Only Sushil Kramer MD Work Phone: Cardiology Comment on above: AV block, 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 Start: 02-15-2024 End: 02-15-2024 Office outpatient visit 15 minutes Ariana Naranjo MD Work Phone: Dermatology Comment on above: Hidradenitis suppura tiva (Primary Dx); Dissecting cellulitis of scalp Start: 02-13-2024 End: 02-13-2024 ambulatory [facility] Work Phone: Cardiology Comment on above: Event (Zio patch) Start: 02-09-2024 End: 02-15-2024 Evaluation and management of inpatient [facility] Facility:[facility] Start: 02-08-2024 Telephone encounter [facility] Comment on above: Nurse Triage Call Start: 02-02-2024 End: 02-02-2024 Emergency department patient visit [facility] Facility:[id number] Start: 01-30-2024 Specialty Pharmacy aTylor [facility] Comment on above: SPP Inflammatory Con ditions - Medication Refill (Cosentyx-NCA 05/2024) Start: 12-27-2023 Specialty Pharmacy [facility] Comment on above: SPP Inflammatory Con ditions - Medication Refill (Cosentyx-NCA 05/2024) Start: 12-11-2023 End: 12-11-2023 ambulatory Marlon Makey Facility:[facility] Start: 11-28-2023 Specialty Pharmacy [facility] Comment on above: SPP Inflammatory Con ditions - Medication Refill (Cosentyx-NCA 05/2024) Start: 11-07-2023 Telephone encounter Alicia snowden MD Work Phone: Dermatology Start: 11-02-2023 ambulatory [facility] Start: 11-02-2023 Patient encounter procedure [facility] Comment on above: SPP Inflammatory Con ditions - Treatment Referral (Cosentyx); Insurance Authorization ([place] Submission P[place]) Start: 10-22-2023 Telephone encounter Alicia nsowden MD Work Phone: Dermatology Start: 09-19-2023 Telephone encounter Jeremy Armendariz MD Work Phone: Dermatology Comment on above: Orders Start: 09-18-2023 Telephone encounter Nurse Clin ical Work Phone: Dermatology Comment on above: Returning Patient's Call (Please see telephone encounter ) Start: 08-29-2023 End: 08-29-2023 ambulatory Marlon Michaud Facility:[facility] Start: 10-12-2022 End: 10-12-2022 ambulatory Chair 6 [facility] Comment on above: 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) Start: 10-10-2022 End: 10-10-2022 ambulatory Chair 7 [facility] Comment on above: 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) Start: 09-18-2022 End: 09-18-2022 Patient encounter procedure Jerman Tovar MD Work Phone: [facility] Cardiology Comment on above: OPENED IN ERROR [ (I CD-9-CM)] (Primary Dx) Start: 07-10-2022 End: 07-10-2022 ambulatory Bed 1 [facility] Comment on above: Iron deficiency anem ia, unspecified iron deficiency anemia type (Primary Dx) Start: 07-07-2022 End: 07-07-2022 ambulatory Chair 12 [facility] Comment on above: 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); CLL (chronic lymphocytic leukemia) (HCC) Start: 06-22-2022 End: 06-22-2022 ambulatory Chair 7 [facility] Comment on above: 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) Start: 05-23-2022 ambulatory Tracy Gamez RN [facility] Start: 05-15-2022 ambulatory Temitope Heart RN [facility] Start: 05-15-2022 Follow-up encounter Temitope Heart RN [facility] Comment on above: Primary Care Coordin ator- Other (Follow up with SNF) Start: 05-08-2022 ambulatory Temitope Heart RN [facility] Start: 05-08-2022 Follow-up encounter Temitope Heart RN [facility] Comment on above: Primary Care Coordin ator- Other (Follow up with SNF) Start: 05-01-2022 Telephone encounter Jerman Tovar MD Work Phone: [facility] Cardiology Comment on above: Needs rescheduled Start: 04-27-2022 Telephone encounter Jerman Tovar MD Work Phone: [facility] Cardiology Comment on above: Appointment Start: 04-26-2022 ambulatory Temitope Heart RN [facility] Comment on above: Primary Care Coordin ator- Other (Chart review) Start: 04-20-2022 Telephone encounter Sue black MD Work Phone: [facility] [place] Comment on above: Orders Start: 03-29-2022 Chart abstracting Jeramn Tovar MD Work Phone: [facility] [place] Start: 03-28-2022 ambulatory Loren Alexander MA [facility] Comment on above: Population Health Na vigation Outreach ([place] Attribution /) Start: 03-01-2022 Telephone encounter Jerman Tovar MD Work Phone: [facility] Cardiology Comment on above: Appointment; Patient Question Start: 02-19-2022 Telephone encounter Marlon Michaud MD Work Phone: [facility] [place] Comment on above: Patient Update Start: 01-18-[address] Gene Michaud Work Phone: [facility] Start: 01-18-2022 End: 01-18-[address] Marlon Michaud Work Phone: [facility] Start: 01-06-2022 End: 01-29-[address] Marlon Michaud Work Phone: [facility] Start: 12-26-2021 End: 12-26-[address] Marlon Michaud Work Phone: [facility] Start: 12-23-2021 Telephone encounter Jerman Tovar MD Work Phone: [facility] Comment on above: Appointment; Care Co ordinator - Other Start: 11-16-2021 End: 11-16-2021 Subsequent hospital visit by physician Diana Charles MD Work Phone: [facility] Comment on above: C.DIFFICILE DIARRHEA ,FEVER,BUTTOCK WOUND,SEPSIS Start: 10-26-2021 End: 10-26-[address] Marlon Michaud Work Phone: [facility] Start: 10-21-2021 End: 10-29-[address] Malron Michaud Work Phone: [facility] Start: 10-12-2021 End: 10-12-[address] Marlon Michaud Work Phone: [facility] Start: 09-28-[address] Gene Michaud Work Phone: [facility] Start: 09-28-2021 End: 09-28-[address] Marlon Michaud Work Phone: [facility] Start: 09-14-2021 End: 09-14-[address] Marlon Michaud Work Phone: [facility] Start: 09-09-2021 End: 09-29-[address] Marlon Michaud Work Phone: [facility] Start: 08-30-2021 End: 08-30-[address] Marlon Michaud Work Phone: [facility] Start: 08-23-2021 End: 08-23-[address] Marlon Michaud Work Phone: [facility] Start: 08-16-2021 End: 08-16-[address] Marlon Michaud Work Phone: [facility] Start: 08-12-2021 End: 08-29-[address] Marlon Michaud Work Phone: [facility] Start: 08-09-2021 End: 08-09-[address] Marlon Michaud Work Phone: [facility] [facility] Start: 08-01-2021 End: 08-01-[address] Marlon Michaud Work Phone: [facility] Start: 07-11-2021 End: 07-11-[address] Marlon Michaud Work Phone: [facility] Start: 06-16-2021 End: 06-16-[address] Marlon Michaud Work Phone: [facility] Start: 06-03-2021 End: 07-01-[address] Marlon Michaud Work Phone: [facility] Start: 06-02-2021 End: 06-02-[address] Marlon Michaud Work Phone: [facility] Start: 04-29-2021 End: 12-11-2023 hedy Michaud Facility:[facility] Start: 01-15-2018 Patient encounter status Diana Charles MD Work Phone: [facility] Work Phone: Procedures Date Procedure Procedure Detail Performing Clinician Start: 01-30-2025 X-ray of chest, PA a nd lateral views Dr. Oliver Judge DO Work Phone: Start: 01-30-2025 Computed tomography of abdomen and pelvis with intravenous contrast Dr. Oliver Judge DO Work Phone: Start: 01-30-[address] Oliver Judge DO Work Phone: Start: 01-30-2025 Total iron binding c apacity measurement Dr. Oliver Judge DO Work Phone: Start: 01-30-[address] Oliver Judge DO Work Phone: Start: 10-12-2022 End: 10-12-2022 RBC TRANSFUSION INSTRUCTION (NC,MT) Dinora Bansal MD Work Phone: Start: 10-12-2022 RED BLOOD CELLS, ADULT Dinora Bansal MD Work Phone: Start: 10-10-2022 End: 10-10-2022 ANTIBODY WORKUP(4) Dinora Bansal MD Work Phone: Start: 10-10-2022 Antibody screen Chair Rosemary gibson Start: 10-10-2022 Blood typing serologic abo Dinora Bansal MD Work Phone: Start: 07-10-2022 End: 07-10-2022 RBC TRANSFUSION INSTRUCTION (NC,MT) Dinora Bansal MD Work Phone: Start: 07-07-2022 ANTIBODY WORKUP(2) Mary Bansal MD Work Phone: Start: 07-07-2022 Antibody screen Chair M paige Start: 07-07-2022 Blood typing serologic abo Dinora Basnal MD Work Phone: Start: 06-22-2022 End: 06-22-2022 RBC TRANSFUSION INSTRUCTION (NC,MT) Dinora Bansal MD Work Phone: Start: 06-22-2022 Antibody screen Chair Rosemary gibson Start: 06-22-2022 Blood typing serologic abo Dinora Bansal MD Work Phone: Start: 06-22-2022 Compatibility each u nit electronic Dinora Bansal MD Work Phone: Start: 12-02-2021 Cardiac catheterization Start: 11-17-2021 Ecg routine ecg w/le ast 12 lds i&r only Start: 11-16-2021 Ecg routine ecg w/le ast 12 lds i&r only Start: 08-12-[address] Marlon Michaud Work Phone: Start: 08-12-2021 Investigation of tra nsfusion reaction Dr. Marlon Michaud Work Phone: Start: 08-12-2021 Microbial culture, routine Dr. Marlon Michaud Work Phone: Start: 06-03-[address] Marlon Michaud Work Phone: Start: 06-03-2021 Investigation of tra nsfusion reaction Dr. Marlon Michaud Work Phone: Start: 06-03-2021 Microbial culture, routine Dr. Marlon Michaud Work Phone: Start: 07-18-2018 Lipid 1996 panel - S dejan or Plasma Nurse Clinical Work Phone: Plan of Treatment Date Care Activity Detail Author Start: 01-16-2028 Urine microalbumin profile [facility] Start: 10-11-2027 Diabetes Screening Diabetes Screenin g [facility] Start: 02-09-2027 Diabetes Screening Diabetes Screenin g [facility] Start: 02-01-2027 Diabetes Screening Diabetes Screenin g [facility] Start: 11-25-2026 Diabetes Screening Diabetes Screenin g [facility] Start: 06-08-2026 Diabetes Screening Diabetes Screenin g [facility] Start: 04-24-2025 DIABETES SCREEN DIABETES SCREEN [facility] Start: 04-20-2025 DIABETES SCREEN DIABETES SCREEN [facility] Start: 03-27-2025 DIABETES SCREEN DIABETES SCREEN [facility] Start: 02-16-2025 DIABETES SCREEN DIABETES SCREEN [facility] Start: 01-30-2025 Hospital admission, emergency, from emergency room, medical nature [facility] Start: 01-30-2025 Verification routine [facility] Start: 01-30-2025 Admission procedure [facility] Start: 01-30-2025 End: 01-30-2025 [facility] Start: 01-30-2025 Chemotherapy care management [facility] Start: 01-30-2025 Bacteria identified in Blood by Culture Blood Culture [facility] Start: 01-30-2025 Microscopic observat ion [Identifier] in Unspecified specimen by Gram stain [facility] Start: 01-30-2025 Wound Culture Wound Culture [facility] Start: 12-03-2024 DIABETES SCREEN DIABETES SCREEN [facility] Start: 12-01-2024 End: 12-01-2024 Specialty Pharmacy 12/01/2024 9:30 AM EDT Specialty Pharmacy [facility] [address] [place], [place] [id number] Pharmacist, [facility] [address] [place] [address] [place] [address] REFILL - Cosentyx(28ds) PA exp:07/01/25. Pt @ [facility], call pt mobile-ND 12/06?-lvm 11/27 [facility] Comment on above: REFILL - Cosentyx(28 ds) PA exp:07/01/25. Pt @ [facility], call pt mobile-ND 12/06?-lvm 11/27 Start: 11-27-2024 End: 11-27-2024 Specialty Pharmacy 11/27/2024 9:00 AM EDT Specialty [facility] [address] [place] [address] Pharmacist, [facility] [address] [place] [address] [place] [address] REFILL - Cosentyx(28ds) PA exp:07/01/25. Pt @ [facility], call pt mobile-ND 12/06? [facility] Comment on above: REFILL - Cosentyx(28 ds) PA exp:07/01/25. Pt @ [facility], call pt mobile-ND 12/06? Start: 10-27-2024 End: 10-27-2024 Specialty Pharmacy 10/27/2024 9:15 AM EDT Specialty [facility]acy [facility] [address] [place] [address] Pharmacist, [facility] [address] [place] [address] REFILL - Cosentyx(28ds) PA exp:07/01/25. Pt @ [facility], call pt mobile on M, T or W and he will coordinate with [place] staff. pt would like to sign for deliveries-ready for refill? [facility] Comment on above: REFILL - Cosentyx(28 ds) PA exp:07/01/25. Pt @ [facility], call pt mobile on M, T or W and he will coordinate with [place] staff. pt would like to sign for deliveries-ready for refill? Start: 10-20-2024 End: 10-20-2024 Specialty Pharmacy 10/20/2024 9:00 AM EDT Specialty Pharmacy [facility] [address] [place] [address] Pharmacist, [facility] [address] [place] [address] REFILL - Cosentyx(28ds) PA exp:07/01/25. Pt @ [facility], call pt mobile on M, T or W and he will coordinate with NH staff. pt would like to sign for deliveries-ready for refill? [facility] Comment on above: REFILL - Cosentyx(28 ds) PA exp:07/01/25. Pt @ [facility], call pt mobile on M, T or W and he will coordinate with [place] staff. pt would like to sign for deliveries-ready for refill? Start: 08-15-2024 End: 08-15-2024 Specialty Pharmacy 08/15/2024 7:00 AM EST Specialty Pharmacy [facility] [address] [place] [address] Pharmacist, [facility] [address] [place] [address] [place] [address] REFILL - Cosentyx(28ds) PA exp:07/01/25. Pt @ [facility], call pt mobile on M, T or W and he will coordinate with [place] staff. pt would like to sign for deliveries- [facility] Comment on above: REFILL - Cosentyx(28 ds) PA exp:07/01/25. Pt @ [facility], call pt mobile on M, T or W and he will coordinate with [place] staff. pt would like to sign for deliveries- Start: 07-15-2024 End: 07-15-2024 Patient encounter procedure 07/15/2024 3:00 PM EST Office Visit Dermatology [address] [address] Abhijeet Faulkner MD, PhD [address] [facility] [address] [place] [address] Follow up- possible biopsy per Dermatology Comment on above: Follow up- possible biopsy per Start: 07-14-2024 End: 07-14-2024 Specialty Pharmacy 07/14/2024 9:00 AM EST Specialty Pharmacy [facility] [address] [place] [address] Pharmacist, [facility] [address] [place] [address] [place] [address] REFILL - Cosentyx(28ds) PA exp:07/01/25. NCA 05/2024. Pt @ [facility], call pt mobile on M, T or W and he will coordinate with [place] staff. pt would like to sign for deliveries [facility] Comment on above: REFILL - Cosentyx(28 ds) PA exp:07/01/25. NCA 05/2024. Pt @ [facility], call pt mobile on M, T or W and he will coordinate with [place] staff. pt would like to sign for deliveries Start: 07-02-2024 Advance Directive Discussion Advance Directive Discussion [facility] Start: 06-30-2024 End: 06-30-2024 Patient encounter procedure 06/30/2024 10:15 AM EST Office Visit Dermatology [address] [phone] Jeremy Armendariz MD [address] [phone] hidradenitis follow up Dermatology Comment on above: hidradenitis follow up Start: 06-24-2024 End: 06-24-2024 Patient encounter procedure 06/24/2024 2:30 PM EST Office Visit Preventive Cardiology [address] [phone] Chaparro Mehta MD [address] [facility] [address] [place] [address] asymptomatic bradycardia Preventive Cardiology Comment on above: asymptomatic bradyca rdia Start: 06-16-2024 End: 06-16-2024 Specialty Pharmacy [facility] Comment on above: REFILL - Cosentyx(28 ds) PA exp:05/08/24. NCA 05/2024. Pt @ [facility], call pt mobile on M, T or W and he will coordinate with [place] staff. pt would like to sign for deliveries-pt currently has 4 boxes REFILL - Cosentyx(28 ds) PA exp:07/01/25. NCA 05/2024. Pt @ [facility], call pt mobile on M, T or W and he will coordinate with [place] staff. pt would like to sign for deliveries-pt currently has 4 boxes Start: 05-20-2024 End: 05-20-2024 Patient encounter procedure 05/20/2024 11:45 AM EST Office Visit Cardiology [address] [phone] Sushil Kramer MD [address] [place] [address] Dx: Asymptomatic 2nd degree type 1 AVB on telemetry during hospitalization. Metoprolol discontinued during hospitalization with improvement in rhythm. Cardiology Comment on above: Dx: Asymptomatic 2nd degree type 1 AVB on telemetry during hospitalization. Metoprolol discontinued during hospitalization with improvement in rhythm. Start: 05-20-2024 End: 05-20-2024 ambulatory 05/20/2024 10:45 AM EST Results Only Cardiology [address] [place] [address] Dx: Asymptomatic 2nd degree type 1 AVB on telemetry during hospitalization. Metoprolol discontinued during hospitalization with improvement in rhythm. Cardiology Comment on above: Dx: Asymptomatic 2nd degree type 1 AVB on telemetry during hospitalization. Metoprolol discontinued during hospitalization with improvement in rhythm. Start: 05-14-2024 End: 05-14-2024 Patient encounter procedure 05/14/2024 2:00 PM EST Office Visit Dermatology [address] [address] [place] [address] [place] [address] follow up Dermatology Comment on above: follow up Start: 04-01-2024 End: 04-01-2024 Patient encounter procedure 04/01/2024 9:10 AM EDT Office Visit Dermatology [address] [address] Milagros Patel MD [address] [place] [address] Follow Up Dermatology Comment on above: Follow Up Start: 03-25-2024 End: 03-25-2024 Specialty Pharmacy 03/25/2024 9:00 AM EDT Specialty Pharmacy [facility] [place] [address] Pharmacist, [facility] [address] [place] [address] REFILL - Cosentyx(28ds) PA exp:05/08/24. NCA 05/2024. Pt @ [facility], call pt mobile and he will coordinate with [place] staff. pt would like to sign for deliveries-04/04 [facility] Comment on above: REFILL - Cosentyx(28 ds) PA exp:05/08/24. NCA 05/2024. Pt @ [facility], call pt mobile and he will coordinate with [place] staff. pt would like to sign for deliveries-ND 04/04 Start: 03-11-2024 End: 03-11-2024 Patient encounter procedure 03/11/2024 8:50 AM EDT Office Visit Dermatology [address] [phone] Milagros Patel MD [address] [place], [place] [phone] Follow Up Dermatology Comment on above: Follow Up Start: 02-26-2024 End: 02-26-2024 [facility]ty [facility]acy [facility] Comment on above: REFILL - Cosentyx(28 ds) PA exp:05/08/24. NCA 05/2024. Pt @ [facility], call pt mobile and he will coordinate with [place] staff.-ND 03/07 REFILL - Cosentyx(28 ds) PA exp:05/08/24. NCA 05/2024. Pt @ [facility], call pt mobile and he will coordinate with [place] staff. pt would like to sign for deliveries-ND 03/07 Start: 02-15-2024 End: 02-15-2024 Patient encounter procedure 02/15/2024 1:30 PM EDT Office Visit Dermatology [address] [place] [address] Ariana Naranjo V, MD [address] [place] [address] hidrentis Dermatology Comment on above: hidrentis Start: 12-31-2023 End: 12-31-2023 Specialty Pharmacy 12/31/2023 9:15 AM EDT Specialty Pharmacy [facility] [address] [place] [address] Pharmacist, [facility] [address] [place] [address] REFILL - Cosentyx(28ds) PA exp:05/08/24. NCA 05/2024. Pt @ [facility], call pt mobile and he will coordinate with [place] staff.-ND 01/03-[facility] Comment on above: REFILL - Cosentyx(28 ds) PA exp:05/08/24. NCA 05/2024. Pt @ [facility], call pt mobile and he will coordinate with [place] staff.-ND 01/03-[facility] Start: 12-27-2023 End: 12-27-2023 Specialty Pharmacy 12/27/2023 9:00 AM EDT Specialty Pharmacy [facility] [address] [place], [place] [phone] Pharmacist, [facility] [address] [place] [address] REFILL - Cosentyx(28ds) PA exp:05/08/24. NCA 05/2024. Pt @ [facility], call pt mobile and he will coordinate with [place] staff.-ND 01/03 [facility] Comment on above: REFILL - Cosentyx(28 ds) PA exp:05/08/24. NCA 05/2024. Pt @ [facility], call pt mobile and he will coordinate with [place] staff.-ND 01/03 Start: 11-28-2023 End: 11-28-2023 Specialty Pharmacy 11/28/2023 9:00 AM EDT Specialty Pharmacy [facility] [address] [place] [address] Pharmacist, [facility] [address] [place] [address] REFILL - Cosentyx (week 4 dose due /?) PA exp 05/08/24. NCA 05/2024. Pt @ [facility], call pt mobile and he will coordinate with [place] staff. [facility] Comment on above: REFILL - Cosentyx (w [place] 4 dose due 12/05?) ROSHAN exp 05/08/24. NCA 05/2024. Pt @ [facility], call pt mobile and he will coordinate with [place] staff. Start: 07-18-2023 Lipid panel Lipid Screening [facility] Start: 07-18-2023 LIPID SCREEN LIPID SCREEN [facility] Start: 07-18-2023 PROSTATE CANCER SCREENING DISCUSSION PROSTATE CANCER SCREENING DISCUSSION [facility] Start: 07-18-2023 Prostate specific antigen measurement Prostate Cancer Screening Discussion [facility] Start: 07-02-2023 Advance Directive Discussion Advance Directive Discussion [facility] Start: 10-12-2022 End: 12-12-2022 TYPE + SCREEN TYPE + SCREEN Blood Bank Routine Anemia due to multiple mechanisms Expected: 10/12/2022, Expires: 12/12/2022 [facility] Work Phone: Comment on above: Expected: 10/12/2022 , Expires: 12/12/2022 Start: 07-18-2021 DIABETES SCREEN DIABETES SCREEN [facility] Start: 07-18-2019 ANNUAL PCP TEAM WHEEL ADJUSTER DANYA DISEASE VISIT ANNUAL PCP TEAM CHRONIC DISEASE VISIT [facility] Start: 2018 RSV Vaccine (1 - 1-d ose 60+ series) RSV Vaccine (1 - 1-dose 60+ series) [facility] Start: 2018 RSV Vaccine (1 - Ris k 60-74 years 1-dose series) RSV Vaccine (1 - Risk 60-74 years 1-dose series) [facility] Start: 02-08-2008 SHINGRIX VACCINE (1 of 2) SHINGRIX VACCINE (1 of 2) [facility] Start: 2003 COLOGUARD (FIT-DNA) COLOGUARD (FIT-D NA) [facility] Start: 2003 Colonoscopy COLONOSCOPY [facility] Start: 2003 COLORECTAL CANCER SCREENING COLORECTAL CANCER SCREENING [facility] Start: [address] COLONOGRAPHY [facility] Start: 2003 FECAL OCCULT BLOOD FECAL OCCULT BLOO D [facility] Start: 2003 Screening for malign ant neoplasm of colon [facility] Start: 2003 SIGMOIDOSCOPY SIGMOIDOSCOPY [facility] Start: 1977 ONE PNEUMOVAX PRIOR TO AGE 65 ONE PNEUMOVAX PRIOR TO AGE 65 [facility] Start: 1977 Pneumococcal Vaccine : 50+ (1 of 2 - PCV) Pneumococcal Vaccine: 50+ (1 of 2 - PCV) [facility] Start: 1977 SHINGRIX VACCINE (1 of 2) SHINGRIX VACCINE (1 of 2) [facility] Start: 02-08-1976 Annual PCP Team Design Engineer danya Disease Visit Annual PCP Team Chronic Disease Visit [facility] Start: 02-08-1976 Anxiety Screening Anxiety Screening [facility] Start: 02-08-1976 BP CONTROLLED (<130/80) BP CONTROLLE D (<130/80) [facility] Start: 02-08-1964 PNEUMOCOCCAL (1 - PCV) PNEUMOCOCCAL (1 - PCV) [facility] Start: 02-08-1964 Pneumococcal Vaccine : 65+ (1 of 2 - PCV) Pneumococcal Vaccine: 65+ (1 of 2 - PCV) [facility] Start: 1963 COVID-19 VACCINE (#1) COVID-19 VACCI NE (#1) [facility] Start: 1958 COVID-19 VACCINE (#1) COVID-19 VACCI NE (#1) [facility] Start: 1958 Abdominal aortic aneurysm screening Abdominal Aortic Aneurysm Screening [facility] ANTIBODY ID PATIENT ANTIBODY ID PATIENT Lab STAT Anemia due to multiple mechanisms 10/10/2022 8:26 AM EDT [facility] Work Phone: Bilirubin measuremen t, urine [facility] CBC W Auto Different ial panel - Blood [facility] Work Phone: End: 03-11-2025 ECG COMPLETE ECG COMPLETE ECG Routine AV block, 2nd degree 1 Occurrences starting 03/11/2024 until 03/11/2025 [facility] Work Phone: Comment on above: 1 Occurrences starti ng 03/11/2024 until 03/11/2025 Ferritin [Mass/volum e] in Serum or Plasma [facility] Work Phone: Ferritin [Mass/volum e] in Serum or Plasma [facility] Hemoglobin [Presence ] in Urine [facility] Iron and Iron bindin g capacity panel - Serum or Plasma [facility] Work Phone: [facility] Work Phone: Measurement of keton es in urine using dipstick [facility] Microscopic urinalysis [facility] Patient referral [facility] Work Phone: pH of Urine [facility] RED BLOOD CELLS, ADULT RED BLOOD CELLS, ADULT Blood Bank Routine Anemia due to multiple mechanisms 06/22/2022 12:00 AM EST [facility] Work Phone: RED BLOOD CELLS, ADULT RED BLOOD CELLS, ADULT Blood Bank Routine Anemia due to multiple mechanisms 1 Occurrences starting 07/07/2022 [facility] Work Phone: Comment on above: 1 Occurrences starti ng 07/07/2022 RED BLOOD CELLS, ADULT RED BLOOD CELLS, ADULT Blood Bank Routine Anemia due to multiple mechanisms 1 Occurrences starting 10/10/2022 [facility] Work Phone: Comment on above: 1 Occurrences starti ng 10/10/2022 Respiratory pathogen s DNA and RNA panel - Respiratory specimen by TIBURCIO with probe detection [facility] Reticulocyte count [facility] Work Phone: Specific gravity of Urine [facility] SURGICAL PATHOLOGY SURGICAL PATH OLOGY Lab Routine Rash and nonspecific skin eruption 07/15/2024 4:11 PM EST [facility] Work Phone: Urine blood test [facility] Urine culture [facility] Urine dipstick for glucose [facility] Urine dipstick for leukocyte esterase [facility] Urine dipstick for nitrite [facility] Urine dipstick for protein [facility] Urine examination [facility] Urine microscopy: epithelial cells [facility] Urine Microscopy: wh ite cells [facility] Urobilinogen [Presen ce] in Urine [facility] Wound microscopy, culture and sensitivities [facility] Immunizations Immunization Date Immunization Notes Care Provider Lopez adames 01-15-2018 tetanus and diphther ia toxoids, adsorbed, preservative free, for adult use (5 Lf of tetanus toxoid and 2 Lf of diphtheria toxoid) Sue Sanchez MD Work Phone: [facility] Work Phone: 01-15-2018 tetanus toxoid, redu good diphtheria toxoid, and acellular pertussis vaccine, adsorbed Diana Charles MD Work Phone: [facility] 12-17-2017 hepatitis A and hepatitis B vaccine Diana Charles MD Work Phone: [facility] Work Phone: 12-17-2017 hepatitis B vaccine, adult dosage Sue Sanchez MD Work Phone: [facility] Work Phone: 07-17-2017 hepatitis A and hepatitis B vaccine Diana Charles MD Work Phone: [facility] 01-08-1995 hepatitis B vaccine, pediatric or pediatric/adolescent dosage Sue Sanchez MD Work Phone: [facility] Work Phone: 07-24-1994 hepatitis B vaccine, pediatric or pediatric/adolescent dosage Sue Sanchez MD Work Phone: [facility] Work Phone: 06-05-1994 hepatitis B vaccine, pediatric or pediatric/adolescent dosage Sue Sanchez MD Work Phone: [facility] Work Phone: Payers Date Payer Category Payer Medicare (Managed Care) 1.2. [id number] 2023 Medicare [id number] 2022 Medicare [id number] 2022 Unknown [id number] 2022 Medicaid [id number] 2021 Unknown ANTHEM BLUE CROS S AND BLUE SHIELD ANTHEM MEDIBLUE HMO [id number] 2021-Present [phone] [address] [place] [address] HMO [id number] 2021 Unknown ANTHEM BLUE CROS S AND BLUE SHIELD ANTHEM MEDIBLUE HMO [id number] 2021-Present [phone] [address] [place] [address] O [id number] 2021 Medicare [id number] 2021 Self-pay [id number] [phone] [id number] 2021 Unknown [id number] 2016 Unknown [id number] 2016 Unknown [id number] Medicare [id number] Private Health Insurance [id number] Unknown [id number] 62 Unknown [id number] 62 Unknown [id number] 62 Unknown [id number] 62 Social History Date Type Detail Facility Start: 04-01-2021 Tobacco [facility] Start: 07-20-2016 Alone Maile Cerrato [facility] Start: 1960 Sex Assigned At Male W [facility] Start: 11-29-2016 Tobacco smoking stat us NHIS Occasional tobacco smoker [facility] History of tobacco use Cigarette Smoker C [facility] Start: 11-29-2016 End: 10-20-2024 Cigarettes smoked current (pack per day) - Reported 0.4 [facility] Start: 11-29-2016 End: 04-19-2022 Tobacco use and exposure Smokeless tobacco non-user [facility] Start: 10-07-2018 End: 06-07-2023 Alcohol intake Current non-drinker of alcohol (finding) [facility] Start: 06-26-2017 History SDOH Alcohol Comment rarely [facility] Start: 06-26-2017 End: 04-19-2022 Tobacco Comment 4-5 cigarettes daily [facility] Start: 1960 Sex Assigned At Not on file C [facility] Start: 12-19-2021 End: 04-20-2022 Exposure to SARS-CoV-2 (event) Not sure [facility] Start: 01-23-2022 End: 01-30-2025 Tobacco smoking status NHIS Ex-smoker [facility] History of tobacco use Current smoker [facility] Start: 06-07-2023 End: 10-20-2024 Tobacco use panel [facility] Adult Depression Screening Assessment 0 [facility] Functional Status Date Assessment Result Facility 02-15-2024 Are you deaf, or do you have serious difficulty hearing No 02/15/2024 9:53 AM Fly Feldman RN No [facility] 02-15-2024 Are you blind, or do you have serious difficulty seeing, even when wearing glasses No 02/15/2024 9:53 AM Fly Feldman RN No [facility] 02-15-2024 Do you have serious difficulty walking or climbing stairs No 02/15/2024 9:53 AM Fly Feldman, BASHIR [facility] 02-15-2024 Do you have difficul ty dressing or bathing No 02/15/2024 9:53 AM Fly Feldman RN No [facility] 02-15-2024 Because of a physica l, mental, or emotional condition, do you have difficulty doing errands alone such as visiting a physician's office or shopping No 02/15/2024 9:53 AM EDT Fly Phillips, RN No [facility] Mental Status Date Assessment Result Facility 01-30-2025 Cognitive function Level Of Cons ciousness Awake;Alert;Appropriate;[place] wsy [facility] Work Phone: 02-15-2024 Because of a physica l, mental, or emotional condition, do you have serious difficulty concentrating, remembering, or making decisions No 02/15/2024 9:53 AM EDT Fly Phillips, BASHIR No [facility] 11-09-2021 Cognitive function Awake;Alert;A ppropriate;Fol lows Commands [facility] Work Phone: 09-28-2021 Cognitive function Level Of Cons ciousness Awake;Alert;Appropriate;Fol lows Commands [facility] Work Phone: Clinical Notes 12-07-2021 to 01-30-2025 Note Date & Type Note Facility 01-30-2025 Discharge summary [facility] 01-30-2025 Radiology Diagnostic study note [facility] Imaging Services [address], [place] [id number] Abdomen/Pelvis W IV Cont ONLY MR#: [id number] Acct: [id number] Name: MARYCRUZ VARGAS Rep #: [id number] : 1960 M 64 From: Ellyn Durand MD PCP: Mone Castillo MD Status: REG ER Study:Abdomen/Pelvis W IV Cont ONLY Date of E xam: 01/30/25 Exam# [id number] Ordering Dr: Oliver Larson DO PROCEDURE: ABDOMEN/PELVIS W IV CONT ONLY 01/30/2025 REASON FOR EXAM: INFECTED SACRAL WOUND TECHNIQUE: ABDOMEN/PELVIS W IV CONT ONLY Coronal and Sagittal reconstruction series were provided. CONTRAST: Isovue-300 VOLUME: 100 mL One or more dose reduction techniques were used (e.g., Automated exposure control, adjustment of the mA and/or kV according to patient size, use of iterative reconstruction technique. RADIATION DOSE SUMMARY: CTDlvol: 9.97, 24.02, 14.64 mGy DLP: 1822.09 mGycm COMPARISON: None. FINDINGS: LUNG BASES: Opacities in the dependent lower lobes bilaterally. Subpleural 6.8 mm left lower lobe nodule. Multivessel coronary artery and aortic valve calcification. Mild presternal subcutaneous fat stranding and fluid. LIVER: Unremarkable. GALLBLADDER: Unremarkable. No calcified stone. BILE DUCTS: No ductal dilation. PANCREAS: Unremarkable. SPLEEN: Enlarged measuring 14.9 cm in AP dimension. No focal lesion seen. ADRENAL GLANDS: Unremarkable. KIDNEYS: The kidneys enhance symmetrically. Heterogeneously hyperdense 2.2 cm lesion with peripheral calcification in the inferior pole of the right kidney. No hydronephrosis or hydroureter. STOMACH AND BOWEL: No obstruction or perforation. No wall thickening. No CT evidence of colitis or acute diverticulitis. APPENDIX: Normal-appearing appendix. No CT evidence for appendicitis. RETRO/PERITONEUM: No free fluid. No free air. LYMPH NODES: Multiple enlarged pelvic lymph nodes, predominantly in the iliac chains bilaterally. The largest measures 4.6 x 2.0 x 2.6 cm along the right pelvic sidewall. Several small and mildly prominent inguinal lymph nodes bilaterally. PELVIC ORGANS: Unremarkable as visualized. VASCULATURE: No aortic aneurysm. Scattered calcified atherosclerosis. ABDOMINAL WALL AND SOFT TISSUES: Irregular soft tissue density thickening within the subcutaneous fat of the bilateral buttocks. This thickening is just deep to the skin surface and appears branching and interconnected with small foci of gasand fluid, consistent with complex soft tissue infection. The underlying fat planes are relatively preserved. A small skin defect is noted on the right buttock. No large ulcers are identified. The scrotum is diffusely edematous and thickened with poorly visualized scrotal contents. BONES: No fracture or suspicious osseous abnormality. CT/Abdomen/Pelvis W IV Cont ONLY IMPRESSION: 1. Extensive soft tissue infection of the bilateral buttocks, characterized by branching and interconnected soft tissue thickening with foci of gas and fluid, just deep to the skin surface. No deep fascial involvement or muscle extension. Small right buttock skin defect without large ulceration. 2. Bilateral pelvic lymphadenopathy, likely related to patient's known chronic lymphocytic leukemia versus reactive lymphadenopathy due to soft tissue infection. 3. Diffuse scrotal edema and thickening, possibly due to infection/inflammation. Clinical correlation is recommended. 4. Hyperdense right renal lesion with peripheral calcification, possibly a complicated cyst with internal debris or a calcified mass. A follow-up renal protocol CT or MRI is recommended. 5. Dependent lower lobe atelectasis/infiltrates bilaterally. Reading Location: [facility] CC: Mone Castillo MD; Dr. Oliver Judge DO ~ Sock Drier: Signed [facility] 01-30-2025 Radiology Diagnostic study note [facility] Imaging Services [address] [place] [address] Chest PA and Lateral MR#: [id number] Acct: [id number] Name: MARYCRUZ VARGAS Rep #: [id number] : 1960 M 64 From: Ian Ambriz MD PCP: Mone Castillo MD Status: REG ER Study:Chest PA and Lateral Date of Exam: 01/30/25 Exam# [id number] Ordering Dr: Oliver Larson DO PROCEDURE: CHEST PA AND LATERAL 01/30/2025 REASON FOR EXAM: SHORTNESS OF BREATH TECHNIQUE: CHEST PA AND LATERAL COMPARISON: 08/03/2024 FINDINGS: Lungs/Pleura: Hazy opacity in the right lower lung zone may represent a small layering pleural effusion versus consolidation. No focal consolidation or sizable pleural effusion on the left. Scattered linear/discoid atelectasis in the bilateral lower lung zones. No pneumothorax. Heart/Mediastinum: Mild cardiomegaly. No significant vascular congestion. Bones/Soft tissues: Mild multilevel degenerative changes of the spine. RAD/Chest PA and Lateral IMPRESSION: Hazy right basilar opacity may represent a small layering pleural effusion versus consolidation. Scattered bibasilar linear/discoid atelectasis. Mild cardiomegaly. Reading Location: [facility] CC: Mone Castillo MD; Dr. Oliver Judge DO ~ Sock Drier: Signed [facility] 01-30-2025 Discharge summary Note Date/Time January 30, 2025 6:48pm [facility] Medical Records Department [address] [place] [address] Emergency Department Summary 01/30/25 MR#: [id number] Acct: [id number] Name: MARYCRUZ VARGAS Rep #:[id number] : 1960 64 From: Oliver Gupta ggett PCP: Mone Castillo MD Status:REG ER Location: ED HPI History of Present Illness Chief Complaint: Abn Labs Narrative Narrative: Chief complaint and HPI: Low iron and cough. 64-year-old male with past medicalhistory of CLL on oral chemotherapy follows with oncology here at [facility], history of hepatitis B, chronic sacral wound presents for evaluation low iron. Patient and EMS report states that patient was sent in for low iron however triage note states low hemoglobin, unsure which one. Patient also endorses general malaise and cough for the past 2 days. Had a COVID swab that was negative. Patient states he has a chronic sacral wound. Per EMS this is draining, patient states that he is unsure if it drains at baseline as he cannotsee it. He denies any chest pain, abdominal pain, nausea, vomiting. Endorses decreased p.o. intake. Review of systems: See HPI Medications: As listed on the chart Allergies: As listed on the chart PFSH: Per chart Vital signs: As listed on the chart. Reviewed. Physical exam: Gen: A&O x3 Head: Normocephalic, atraumatic Eyes: No sclera icterus, conjunctiva clear, PERRL, EOMI ENT: TMs clear BL, dry mucous membranes, posterior oropharynx unremarkable, uvula midline Neck: Trachea midline, No JVD, Full ROM, No meningismus CV: tachycardic, regular rhythm, no murmurs, bilateral pitting peripheral edemaof the bilateral lower extremities-patient states this is his baseline Resp: Diminished in the bilateral bases, + productive cough GI: Abd soft, non-distended, non-tender, no r/r/g : Swollen scrotum with yeast in the bilateral groin, large sacral decubitus ulcer draining foul purulent/brownish drainage Musc: Moves all extremities, no deformity Skin: Warm, dry, skin is diffusely red-tinged not a clear or obvious rash Neuro: Alert, oriented, grossly intact, sensation intact Psych: Cooperative, appropriate mood and affect 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 Anemia, macrocytic Bilateral lower extremity edema Chronic lymphocytic leukemia Edema, lower extremity Home Medications ?Medication ?Instructions ?Recorded ?Last Taken ?Type folic acid 1 mg tablet 1 mg PO DAILY #100 tabs 01/19 Unknown Rx Lactobacillus rhamnosus GG 10 1 cap PO BID 06/21/22 Un known History billion cell capsule (Culturelle) acetaminophen 325 mg tablet 325 mg PO Q6H PRN pain Unknown History (Tylenol) calcium carbonate 500 mg PO DAILY 06/21/22 Unk nown History ergocalciferol (vitamin D2) 1,250 1,250 mcg PO QWEEK 1 08/22/21 Unknown History mcg (50,000 unit) capsule ondansetron HCl 4 mg tablet 4 mg PO Q4H PRN nausea and vomiting 06/21/22 Unknown History ascorbic acid (vitamin C) 500 mg 500 mg PO .QOD Unknown History tablet ibrutinib 420 mg tablet 420 mg PO DAILY 11/30/22 Unk nown History atorvastatin 10 mg tablet 10 mg PO QHS 06/19/23 Unknow n History ketoconazole 2 % shampoo 1 applic topical DAILY PRN d ry skin 06/19/23 Unknown History loperamide 2 mg capsule 2 mg PO Q6H PRN loose stool 06/19/23 Unknown History multivitamin 1 tab PO DAILY 06/19/23 Unkn own History paroxetine HCl 30 mg tablet 30 mg PO DAILY 06/19/23 Un known History secukinumab 150 mg/mL subcutaneous 300 mg subcut Q4W 0 12/11/23 Unknown History syringe (Cosentyx) doxycycline hyclate 100 mg tablet 100 mg PO BID #14 ta bs 08/03/24 Unknown Rx furosemide 80 mg tablet (Lasix) 80 mg PO DAILY 5 Unknown History ibrutinib 140 mg capsule 420 mg PO DAILY 08/03/24 Unk nown History (Imbruvica) levothyroxine 25 mcg capsule 25 mcg PO DAILY 08/03/24 Unknown History loratadine 10 mg tablet 10 mg PO DAILY 08/03/24 Unkn own History paroxetine HCl 10 mg tablet 15 mg PO DAILY 08/03/24 Un known History potassium chloride 20 mEq oral 40 meq PO DAILY 5 Unknown History packet temazepam 15 mg capsule (Restoril) 15 mg PO QHS Unknown History Allergy/AdvReac Type Severity Reaction Status Date / Time No Known Allergies Allergy Verified 08/04/24 00:24 Family History Father Diabetes Mother Hypertension Surgical History H/O foot surgery History of tonsillectomy Social History (Updated 01/30/25 @ 15:58 by Chelsea Clarke) housing: prison Smoking Status: Former smoker second hand exposure: No alcohol intake: current alcohol intake frequency: holidays/special occasions only details: occasionally diet: low salt estelle/baptist: Sabianism seatbelt use: always do you feel safe at home: Yes EXAM Physical Exam Const Vital Signs: 01/30/25 15:51 01/30/25 15:57 01/30/25 15:59 Temperature 100.2 F H 100.2 F H Temperature Source Oral Oral Pulse Rate 111 H 111 H Respiratory Rate 24 H 24 H Respiratory Effort Short of Breath Respiratory Pattern Tachypnea Blood Pressure 124/56 H 124/56 H Blood Pressure Mean 78 78 Pulse Ox 99 99 Oxygen Delivery Method Room Air Room Air 01/30/25 16:57 01/30/25 18:00 Temperature 100.3 F H 99.1 F Temperature Source Oral Oral Pulse Rate 111 H 120 H Respiratory Rate 22 H 27 H Respiratory Effort Respiratory Pattern Blood Pressure 131/80 H 126/66 H Blood Pressure Mean 97 86 Pulse Ox 99 99 Oxygen Delivery Method Room Air Room Air MDM MDM MDM Narrative Medical decision making narrative: 64-year-old male with past medical history of CLL on oral chemotherapy follows with oncology here at [facility], history of hepatitis B, chronic sacral wound presents for evaluation low iron. Patient and EMS report states that patient was sent in for low iron however triage note states low hemoglobin, unsure which one. Patient also endorses general malaise and cough for the past 2 days. He has a chronic sacral wound which is draining purulent material. On presentation patient is tachycardic, mildly tachypneic, febrile. Not hypotensive. Patient meets sepsis. NS bolus ordered. 30 cc/kg bolus not ordered due to concern for fluid overload given his history of CHF and bilateralperipheral edema. Broad-spectrum antibiotics with Zosyn and vancomycin ordered. Did culture the purulent material out of the sacral wound. Tylenol given for fever. Sepsis workup ordered including CT abdomen and pelvis. EKG reviewed. Chest x-ray concerning for pneumonia. Patient already received antibiotics. CBC with leukocytosis of 18 with baseline anemia with hemoglobin 11.3. Plateletcount unremarkable. INR unremarkable. CMP with UVALDO with creatinine 1.41. No transaminitis. Lactic acid unremarkable iron is low. BNP unremarkable. Troponin 34, delta pending. CT abdomen pelvis shows extensive soft tissue infection of the bilateral buttocks, characterized by branching interconnected soft tissue thickening with foci of gas and fluid just deep to the surface of theskin.This is open to the air. No deep fascial involvement or muscle extension. Small right buttock skin defect with large ulceration. Bilateral pelvic lymphadenopathy, likely related to chronic colitis lymphocytic leukemia versus reactive lymphadenopathy. Diffuse scrotal edema and thickening. This is seen on physical exam. No no signs of cellulitis. Hyperdense right renal lesion with peripheral calcification, possibly complicated cyst with internal debris orcalcified mass. Recommend renal protocol CT or MRI. Dependent lower lobe atelectasis/infiltrates bilaterally patient will warrant admission. I spoke with the hospitalist service who accepted admission. Patient was updated about the results of her and understand the plan. EKG: Interpreted by me/EM physician: EKG shows sinus tachycardia with right bundle branch block. Left anterior fascicular block. Heart rate 111. Diagnostic: Interpreted by me/EM physician: Right lower lobe pneumonia. Mild cardiomegaly. Radiology agreement. Impression: 1. Sepsis, multifactorial, pneumonia and infected sacral wound 2. UVALDO 3. Low iron Lab Data Labs: Laboratory Results - last 24 hr 01/30/25 01/30/25 16:23 16:24 WBC 18.0 H RBC 5.01 Hgb 11.3 L Hct 36.5 L MCV 72.9 L MCH 22.6 L MCHC 31.0 L RDW Std Deviation 43.9 RDW Coeff of Alisa 17.1 H Plt Count 189 MPV 12.3 H Immature Gran % (Auto) 0.700 Neut % (Auto) 90.5 H Lymph % (Auto) 4.6 L [place] % (Auto) 3.7 Eos % (Auto) 0.3 Baso % (Auto) 0.2 Absolute Neuts (auto) 16.3 H Absolute Lymphs (auto) 0.83 Nucleated RBC % 0 PT 16.4 H INR 1.3 APTT 32.1 Sodium 133 Potassium 4.3 Chloride 98 Carbon Dioxide 22.9 Anion Gap 12 BUN 24 H Creatinine 1.41 H Estim Creat Clear Calc 78.14 Est GFR (MDRD) Non-Af 55 L BUN/Creatinine Ratio 16.7 Glucose 106 H Lactic Acid 1.9 Calcium 8.5 Iron 10 L TIBC 246 L Iron Saturation 4.0 L Unsaturated IBC 236 Total Bilirubin 0.80 AST 19 ALT 8 Alkaline Phosphatase 110 Troponin T High Sens 34 H NT pro BNP II 506 Total Protein 6.5 Albumin 3.3 L Globulin 3.2 Albumin/Globulin Ratio 1.0 Radiography Diagnostic Testing: Clinical Impression(s) from Imaging Studies Abdomen/Pelvis CT 01/30/25 17:06 IMPRESSION: 1. Extensive soft tissue infection of the bilateral buttocks, characterized by branching and interconnected soft tissue thickening with foci of gas and fluid, just deep to the skin surface. No deep fascial involvement or muscle extension. Small right buttock skin defect without large ulceration. 2. Bilateral pelvic lymphadenopathy, likely related to patient's known chronic lymphocytic leukemia versus reactive lymphadenopathy due to soft tissue infection. 3. Diffuse scrotal edema and thickening, possibly due to infection/inflammation. Clinical correlation is recommended. 4. Hyperdense right renal lesion with peripheral calcification, possibly a complicated cyst with internal debris or a calcified mass. A follow-up renal protocol CT or MRI is recommended. 5. Dependent lower lobe atelectasis/infiltrates bilaterally. Reading Location: [id number] Chest X-Ray 01/30/25 17:10 IMPRESSION: Hazy right basilar opacity may represent a small layering pleural effusion versus consolidation. Scattered bibasilar linear/discoid atelectasis. Mild cardiomegaly. Reading Location: [facility] Discharge Plan Triage Chief Complaint: Abn Labs ED Provider: Oliver Judge Dx/Rx/DC Orders Prescriptions: No Action calcium carbonate 500 mg calcium (1,250 mg) tablet 500 mg PO DAILY Culturelle 10 billion cell capsule 1 cap PO BID ergocalciferol (vitamin D2) 1,250 mcg (50,000 unit) capsule 1,250 mcg PO QWEEK ondansetron HCl 4 mg tablet 4 mg PO Q4H PRN (Reason: nausea and vomiting) acetaminophen [Tylenol] 325 mg tablet 325 mg PO Q6H PRN (Reason: pain) ascorbic acid (vitamin C) 500 mg tablet 500 mg PO .QOD ibrutinib 420 mg tablet 420 mg PO DAILY atorvastatin 10 mg tablet 10 mg PO QHS ketoconazole 2 % shampoo 1 applic topical DAILY PRN (Reason: dry skin) loperamide 2 mg capsule 2 mg PO Q6H PRN (Reason: loose stool) multivitamin Tablet 1 tab PO DAILY paroxetine HCl 30 mg tablet 30 mg PO DAILY Cosentyx 150 mg/mL syringe 300 mg subcut Q4W Rx Instructions: 2 pens every 4 weeks on sunday folic acid 1 mg Tablet 1 mg PO DAILY Qty: 100 4RF loratadine 10 mg tablet 10 mg PO DAILY Imbruvica 140 mg capsule 420 mg PO DAILY furosemide [Lasix] 80 mg tablet 80 mg PO DAILY levothyroxine 25 mcg capsule 25 mcg PO DAILY paroxetine HCl 10 mg tablet 15 mg PO DAILY potassium chloride 20 mEq packet 40 meq PO DAILY temazepam [Restoril] 15 mg capsule 15 mg PO QHS doxycycline hyclate 100 mg tablet 100 mg PO BID Qty: 14 0RF Primary Care Provider: Mone Castillo Referrals: Marlon Michaud MD [Non-Staff] - Print Language: Nigerian What to do if you have Problems For any increased pain, shortness of breath, bleeding, nausea or vomiting, chestpain, or any unexpected problems, contact your Primary Care Provider. Call [facility] ([phone]) or report to the closest Emergency Room. Call 911 if necessary. 01/30/25 6580 <Electronically signed by Oliver Judge DO> Cosigner Signature (if applicable): CC: Mone Castillo MD ~ Signed [facility] Work Phone: 1(437) 202-777505-29-2025 NoteHNO ID: [id number] Author: ?, ?, ? Service: ? Author Type: ? Type: Progress Notes Filed: 12/11/2024 11:48 Note Text: Unable to reach patient for refill of Cosentyx after 4 call attempts. Pt last refilled medication on 11/03/2024. Will schedule future follow-up in 2 weeks from today's date. Office will be updated if future attempts are unsuccessful. Tenisha Worthington CPhT [facility] P: [phone] F: [phone] Telephone encounter Note* Telephone Encounter - Abhijeet Faulkner MD, PhD - 10/31/2024 4:24 PM EDT Patient's request for medication is as follows Requested Prescriptions Signed Prescriptions Disp Refills secukinumab (COSENTYX PEN, 2 PENS,) 150 mg/mL 2 each 11 Sig: Inject 300mg (2 pens) subcutaneously every 4 weeks Authorizing Provider: ABHIJEET FAULKNER Order entered - Abhijeet Faulkner MD, PhD [facility]05-02-2025 Miscellaneous Notes* Telephone Encounter - Abhijeet Faulkner MD, PhD - 10/31/2024 4:24 PM EDT Patient's request for medication is as follows Requested Prescriptions Signed Prescriptions Disp Refills secukinumab (COSENTYX PEN, 2 PENS,) 150 mg/mL 2 each 11 Sig: Inject 300mg (2 pens) subcutaneously every 4 weeks Authorizing Provider: ABHIJEET FAULKNER Order entered - Abhijeet Faulkner MD, PhD * Telephone Encounter - Taylor Montilla [facility] - 10/31/2024 2:27 PM EDT Patient needs refill of Cosentyx Date of Marycruz Vargas's last Dermatology office visit: 07/15/24 Next appointment date: none scheduled Last labs: 10/10/24 Last TB test: No results found for: TBGRES Requested Prescriptions Pending Prescriptions Disp Refills secukinumab (COSENTYX PEN, 2 PENS,) 150 mg/mL 2 each 2 Sig: Inject 300mg (2 pens) subcutaneously every 4 weeks Patient prefers: [facility] Thank you! Esther Montilla PharmD Clinical Pharmacist, [employer] [facility] ; Pool: P [facility] Pool #: [id number] [facility] [place] Telephone encounter Note * Telephone Encounter - Taylor Montilla RPh - 10/31/2024 2:27 PM EDT Patient needs refill of Cosentyx Date of Marycruz Vargas's last Dermatology office visit: 07/15/24 Next appointment date: none scheduled Last labs: 10/10/24 Last TB test: No results found for: TBGRES Requested Prescriptions Pending Prescriptions Disp Refills secukinumab (COSENTYX PEN, 2 PENS,) 150 mg/mL 2 each 2 Sig: Inject 300mg (2 pens) subcutaneously every 4 weeks Patient prefers: [facility] Thank you! Esther Montilla PharmD Clinical Pharmacist, [employer] [facility] ; Pool: P [facility] Pool #: [id number] [facility]04-21-2025 History of Present illness Narrative* Tenisha Worthington - 10/20/2024 12:58 PM EDT [facility] received prescription(s) for Cosentyx from Alicia Wilson's office. Benefits investigation was conducted, indicating that a prior authorization is required. PA wasapproved with new insurance and details are listed below. Plan Name: [email or web address] Medicare Plan Agent/Venegas: [id number] Phone/Fax: - / - PA reference number: [id number] Approval Dates: 10/20/2024-07/01/2025 Prescriptions will now be processed through [facility] for determination of next steps. Tenisha Worthington CPhT [facility] P: [phone] F: [phone] documented in [facility] encounter[facility] [place] NoteHNO ID: [id number] Author: ?, ?, ? Service: ? Author Type: ? Type: Progress Notes Filed: 10/20/2024 13:27 Note Text: [facility] [place] [facility] received prescription(s) for Cosentyx from Alicia Wilson's office. Benefits investigation was conducted, indicating that a prior authorization is required. PA was approved with new insurance and details are listed below. Plan Name: [employer] Medicare Plan Agent/Venegas: [id number] Phone/Fax: - / - PA reference number: [id number] Approval Dates: 10/20/2024-07/01/2025 Prescriptions will now be processed through [facility] for determination of next steps. Tenisha Worthington CPhT [facility], [facility] P: [phone] F: [phone]25 NoteHNO ID: [id number] Author: ?, ?, ? Service: ? Author Type: ? Type: Progress Notes Filed: 10/30/2024 12:34 Note Text: [facility] Refill Assessment Medication(s): Cosentyx Patient's current medication list and adherence status to current therapy were reviewed by Specialty Pharmacy clinical pharmacist to identify any new drug interactions or non-compliance to therapy. Therapy continues to be appropriate for disease, patient response, and medical condition. Verification of therapeutic benefit and effectiveness with current therapy was completed. Adverse events, barriers in adherence, and side effects were assessed and addressed if applicable. Will proceed with refill with no changes in therapy - patient progressing towards achieving therapeutic goals based on medication-specific laboratory parameters, disease state markers and outcomes. Office/provider notes have been reviewed prior to dispensing the medication. Board Certified Arts Therapist Assessment Patient confirmed: Yes Med/dose confirmed: Yes Supplies needed: No supplies needed Missed doses: No Estimated days supply on hand: 0 Next cycle/dose due: 11/08/24 Copay amount: 0 Payment confirmed: Yes Delivery method: FedEx Signature required: No Delivery address: [facility] [address] *[address] [facility] [id number] Delivery date: 11/04/24 Questions or concerns for the pharmacist?: No Did you have any side effects believed to be related to this medication, that resulted in hospitalization?: No Current Outpatient Medications on File Prior to Visit Medication Sig Fluocinolone-Shower Cap (DERMA-SMOOTHE/FS SCALP OIL) 0.01 % oil Use three times weekly to scalp. Leave on for 12 hours, then rinse out Clobetasol Propionate (CLOBEX) 0.05 % sham Shampoo scalp three times per week, let sit for 5 mins on scalp. Avoid getting on face, armpits or groin. ketoconazole (NIZORAL) 2 % shampoo Use on hair three times weekly, lather in and leave on for five to ten minutes before washing out. (Patient not taking: Reported on 07/15/2024) Sulfacetamide Sodium, Acne, (KLARON) 10 % susp Use twice daily as face wash to affected areas furosemide (LASIX) 40 mg tablet Take 1 tablet by mouth once daily. potassium chloride (KLOR-CON) 20 mEq packet Take 20 mEq by mouth once daily. secukinumab (COSENTYX PEN, 2 PENS,) 150 mg/mL Inject 300mg (2 pens) subcutaneously at weeks 0,1,2,3 and 4, then 300mg (2 pens) every 4 weeks thereafter secukinumab (COSENTYX PEN, 2 PENS,) 150 mg/mL Inject 300mg (2 pens) subcutaneously every 4 weeks molnupiravir 200 mg capsule ascorbic acid, vitamin C, (VITAMIN C) 500 mg tablet Take 500 mg by mouth every other day. atorvastatin (LIPITOR) 10 mg tablet Take 10 mg by mouth daily at bedtime. VITAMIN D2 1,250 mcg (50,000 unit) capsule Take 50,000 Units by mouth every Sunday. temazepam (RESTORIL) 15 mg Take 15 mg by mouth daily at bedtime. acetaminophen (TYLENOL) 325 mg tablet Take 650 mg by mouth every 6 hours as needed for pain. lactobacillus rhamnosus (CULTURELLE) 10 billion cell capsule Take 1 capsule by mouth two times a day. ibrutinib (IMBRUVICA) 420 mg tablet Take 1 tablet by mouth once daily. ketoconazole (NIZORAL) 2 % shampoo Apply to affected area once daily as needed (dry skin). (Patient not taking: Reported on 07/15/2024) therapeutic multivitamin-minerals (THERA-M PLUS) 9 mg iron-400 mcg tablet Take 1 tablet by mouth once daily. ondansetron (ZOFRAN) 4 mg tablet Take 4 mg by mouth every 4 hours as needed for nausea/vomiting. calcium carbonate (TUMS) 500 mg chew Take 500 mg by mouth once daily. PARoxetine (PAXIL) 10 mg tablet Take 30 mg by mouth once daily. folic acid 1 mg tablet Take 1 mg by mouth once daily. No current facility-administered medications on file prior to visit. [facility] [place] CLINICAL ASSESSMENT - INFLAMMATORY CONDITIONS V6: Assessment to use: Refill Date of influenza vaccination reminder: 11/07/2023 Date of most recent vaccination assessment: 11/07/2023 Treatment Plan Information: Cosentyx 150mg/mL pens Inject 300mg (2 pens) subcutaneously at weeks 0,1,2,3 and 4, then 300mg (2 pens) every 4 weeks thereafter (L73.2) Hidradenitis suppurativa Past treatments: Humira Est. Tx Plan Start Date: 11/08/2023 Estimated Start Date Info: No information available Est. Estimated Treatment Duration: Until loss of efficacy and/or no longer tolerated. Tenisha Worthington CPhT [facility] P: [phone] F: [phone]01-14-2025 Instructions * Patient Instructions* Jackie Garcai MD - 07/15/2024 4:21 PM EST CARE FOR SITE WITH DISSOVABLE SUTURES Please follow these instructions for daily wound care: 1. Wash the area every day with gentle soap and water. 2. Apply a thin layer of Vaseline or Aquaphor to the wound site to keep the area slightly greasy atall time (this helps to prevent scabbing). Please do not use an old tub of ointment as this can introduce germs into your wound and cause infection. 3. Cover with a bandage and continue this daily process until the wound is healed. Do not leave a soiled or wet bandage on the wound. 4. If you are experiencing discomfort you may use a cool compress, elevate the area or take over the counter pain relievers. -Keep the area clean and dry with the bandage in place the day of surgery. -The sutures will dissolve in approximately 2 weeks. -You may shower, but do not soak in a bathtub, hot tub, pool, mensah, etc until after the wound has healed. -DO NOT USE NEOSPORIN OR BACITRACIN as there is a fairly high incidence of allergic response to these products. -You may experience some mild discomfort, redness, swelling, and/or a clear discharge from the wound after your procedure. Severe pain, worsening swelling, and foul-smelling discharge from the site are NOT to be expected. If you have concerns about how your wounds are healing, please send your provider a Over 40 Females message or call . If you have skin glue on your wound site, please do not use Vaseline or aquaphor on the site until the glue is gone. This should come off in about 5-10 days. After the glue is gone, you may start to moisturize the wound site. Gently massage into the incision a few times daily. Wounds heal better and faster with moisture therapy. documented in this encounterSelect [facility] [place]-14-[facility]25 History of Present illness Narrative* Abhijeet Faulkner MD, PhD - 07/15/2024 3:00 PM EST EST patient TIERRA: Dr. Armendariz Chief Complaint: rash - 2nd opinion History of Present Ilness: Marycruz Vargas is a 64 year old male Patient is here for: 1) concerns related to HS Location: generalized Duration: chronic Symptoms: patient reports substance leaking/draining from body, states the consentyx dried it up and now it comes out as a dry power like substance, change of finger nail texture Current treatment: Cosentyx Past treatment: ketoconazole shampoo 2) skin discoloration Location: all over body Thinks it commenced after a cyst on his scalp burst in May 2023, releasing a waxy substance that spread to his body. He endorses a progression of a waxy buildup on his skin since then. This waxy substance was coming out from head to toe. Started Cosentyx for HS in January 2024. He thinks Cosentyx has drastically improved his HS and dried up the waxy substance coursing through his body. He thinks the waxy substance is coming out and isthe reason his skin is discolored. Duration: Sine May 2023 Symptoms: pruritus, taking 7-8 showers daily to relieve itch and to wash waxy substance off skin Current tx: ketoconazole shampoo for scalp, sulfacetamide sodium wash for face Pertinent Past Medical History: History of skin cancer or atypical nevi No Specialty Problems Dermatology Problems Hydradenitis Hidradenitis suppurativa Bilateral finger numbness Hidradenitis suppurativa of anus Rash and nonspecific skin eruption Pertinent Family medical history: History of melanoma No Review of Systems: Constitutional: Denies fever, chills, night sweats, unintentional weight loss. Skin per HPI. No other new/concerning skin growth. Physical Exam: General: well appearing, of stated age, in no acute distress Neurology: alert and oriented times three Psychiatry: in a happy mood Skin: Ortiz skin type: IV Skin exam performed of face, scalp, ears, eyelids, lips, neck, chest, abdomen, back, bilateral upper extremities, hands, fingers, fingernails, bilateral lower extremities, feet, toes, toenails. Skin exam normal with the exception of: - Face with hyperpigmented patches - Chin and nose with atrophic scarring throughout - Arms with a few hypopigmented macules, no secondary changes - Legs with significant edema Labs: Latest Ref Rng 02/11/2024 05/23/2024 WBC 3.70 - 11.00 k/uL 8.94 10.83 RBC 4.20 - 6.00 m/uL 5.01 5.54 Hemoglobin 13.0 - 17.0 g/dL 12.0 (L) 12.6 (L) Hematocrit 39.0 - 51.0 % 41.9 42.6 MCV 80.0 - 100.0 fL 83.6 76.9 (L) MCH 26.0 - 34.0 pg 24.0 (L) 22.7 (L) MCHC 30.5 - 36.0 g/dL 28.6 (L) 29.6 (L) RDW-CV 11.5 - 15.0 % 16.1 (H) 15.3 (H) Platelet Count 150 - 400 k/uL 200 202 MPV 9.0 - 12.7 fL 12.0 12.0 Neut% % 69.1 Abs Neut (ANC) 1.45 - 7.50 k/uL 7.49 Lymph% % 23.2 Abs Lymph 1.00 - 4.00 k/uL 2.51 [place]% % 6.2 Abs [place] <0.87 k/uL 0.67 Eosin% % 0.6 Abs Eosin <0.46 k/uL 0.07 Baso% % 0.5 Abs Baso <0.11 k/uL 0.05 Immature Gran % % 0.4 IMMATURE GRANS (ABS) <0.10 k/uL 0.04 NRBC /100 WBC 0.0 Absolute nRBC <0.01 k/uL <0.01 <0.01 DTYPE Auto Albumin 3.9 - 4.9 g/dL 3.3 (L) Calcium 8.5 - 10.2 mg/dL 9.0 Phosphorus 2.7 - 4.8 mg/dL 3.5 Glucose 74 - 99 mg/dL 72 (L) BUN 9 - 24 mg/dL 13 Creatinine 0.73 - 1.22 mg/dL 0.85 Sodium 136 - 144 mmol/L 140 Potassium 3.7 - 5.1 mmol/L 4.2 Chloride 98 - 107 mmol/L 105 CO2 22 - 30 mmol/L 21 (L) Anion Gap 8 - 15 mmol/L 14 eGFR >=60 mL/min/1.73m 96 Legend: (L) Low (H) High Assessment and Plan: 1. Rash and nonspecific skin eruption 2. Disturbance of skin sensation - [place] oil at bedtime Sunday-Sunday. Take weekends off. Leave on overnight under a shower cap and rinse out in the morning. Avoid use on face, breasts, groin, or axiillae. Counseled patient regarding side effects of topical steroids including, but are not limited to: atrophy, striae, telangectasias, tachyphylaxis, pigmentary changes, as well as risk of cataracts and glaucoma with periocular use. Informed patient that topical steroids should only be used on active skin lesions and not on normal skin. - clobetasol 0.05% shampoo, apply, lather, wait 5-10 minutes, then rinse 1-3 times per week. Avoid use on face, breasts, groin, or axiillae. Counseled patient regarding side effects of topical steroids including, but are not limited to: atrophy, striae, telangectasias, tachyphylaxis, pigmentary changes, as well as risk of cataracts and glaucoma with periocular use. Informed patient that topical steroids should only be used on active skin lesions and not on normal skin. 3. Severe peripheral edema - likely combination of CHF and ibrutinib Punch biopsy to establish and confirm diagnosis. UNIVERSAL PROTOCOL / SAFETY CHECKLIST Procedure to be Performed: skin punch bx Sign In: A Moment of CARE was completed. Personnel directly involved with the procedure wore the appropriate PPE (Personal Protective Equipment). Patient/Surrogate Stated/Verified: PATIENT VERIFIED(optional for EMERGENT procedures): Patient name, Date of , Relevant allergies, and The intended procedure Time Out Communication: Intended patient and procedure match the source documents. Consent documented and matches the intended procedure. Sign Out: SIGN OUT (optional for EMERGENT procedures): All specimen containers correctly labeled. Jcakie Garcia MD Photo taken: Yes Risks, benefits, alternatives and personnel required for punch biopsy reviewed with patient. Patient and provider agree as to site(s) to be biopsied. Patient verbalizes understanding and wishes to proceed. Site(s) prepped with alcohol and anesthetized with 1% lidocaine with epinephrine. The following was sent for histologic evaluation. LESION #1 R/O: EDP vs LPP vs phototoxic adverse drug LOC OF LESION: R jaw Size of punch used: 4 mm EBL: scant Wound was closed with absorbable sutures and bandaging was applied. Patient tolerated procedure well and without complication. Written and verbal wound care instructions provided to patient, understanding verbalized. Return to clinic in 3- 6 months or sooner if something concerning arises. Jackie Garcia MD Dermatology Resident, PGY-3 The documentation for this note was completed by Luis Miguel Yeh acting as scribe for Abhijeet Faulkner MD, PhD. July 15, 2024 3:20 PM. July 15, 2024 I agree with the Chief Complaint, ROS, and Past Histories independently gathered by the clinical network support and the remaining scribed note accurately describes my personal service to the patient. I was physically present during the critical/venegas portions of this encounter and during all procedures, and agree with the above evaluation, assessment, and treatment plan. Total of 30 min spent reviewing records, interviewing and examining the patient, discussing treatment options; and at least halfof that time was spent in face to face interaction with the patient. I reviewed the patient's chartand discussed care with the patient and the other physicians involved. Abhijeet Faulkner MD, PhD documented in this encounterSelect Medical [facility] [place]25 NoteHNO ID: [id number] Author: ABHIJEET FAULKNER MD, PhD Service: ? Author Type: Physician Type: Progress Notes Filed: 07/15/2024 18:38 Note Text: EST patient TIERRA: Dr. Armendariz Chief Complaint: rash - 2nd opinion History of Present Ilness: Marycruz Vargas is a 64 year old male Patient is here for: 1) concerns related to HS Location: generalized Duration: chronic Symptoms: patient reports substance leaking/draining from body, states the consentyx dried it up and now it comes out as a dry power like substance, change of finger nail texture Current treatment: Cosentyx Past treatment: ketoconazole shampoo 2) skin discoloration Location: all over body Thinks it commenced after a cyst on his scalp burst in May 2023, releasing a waxy substance that spread to his body. He endorses a progression of a waxy buildup on his skin since then. This waxy substance was coming out from head to toe. Started Cosentyx for HS in January 2024. He thinks Cosentyx has drastically improved his HS and dried up the waxy substance coursing through his body. He thinks the waxy substance is coming out and is the reason his skin is discolored. Duration: Sine May 2023 Symptoms: pruritus, taking 7-8 showers daily to relieve itch and to wash waxy substance off skin Current tx: ketoconazole shampoo for scalp, sulfacetamide sodium wash for face Pertinent Past Medical History: History of skin cancer or atypical nevi No Specialty Problems Dermatology Problems Hydradenitis Hidradenitis suppurativa Bilateral finger numbness Hidradenitis suppurativa of anus Rash and nonspecific skin eruption Pertinent Family medical history: History of melanoma No Review of Systems: Constitutional: Denies fever, chills, night sweats, unintentional weight loss. Skin per HPI. No other new/concerning skin growth. Physical Exam: General: well appearing, of stated age, in no acute distress Neurology: alert and oriented times three Psychiatry: in a happy mood Skin: Ortiz skin type: IV Skin exam performed of face, scalp, ears, eyelids, lips, neck, chest, abdomen, back, bilateral upper extremities, hands, fingers, fingernails, bilateral lower extremities, feet, toes, toenails. Skin exam normal with the exception of: - Face with hyperpigmented patches - Chin and nose with atrophic scarring throughout - Arms with a few hypopigmented macules, no secondary changes - Legs with significant edema Labs: Latest Ref Rng 02/11/2024 05/23/2024 WBC 3.70 - 11.00 k/uL 8.94 10.83 RBC 4.20 - 6.00 m/uL 5.01 5.54 Hemoglobin 13.0 - 17.0 g/dL 12.0 (L) 12.6 (L) Hematocrit 39.0 - 51.0 % 41.9 42.6 MCV 80.0 - 100.0 fL 83.6 76.9 (L) MCH 26.0 - 34.0 pg 24.0 (L) 22.7 (L) MCHC 30.5 - 36.0 g/dL 28.6 (L) 29.6 (L) RDW-CV 11.5 - 15.0 % 16.1 (H) 15.3 (H) Platelet Count 150 - 400 k/uL 200 202 MPV 9.0 - 12.7 fL 12.0 12.0 Neut% % 69.1 Abs Neut (ANC) 1.45 - 7.50 k/uL 7.49 Lymph% % 23.2 Abs Lymph 1.00 - 4.00 k/uL 2.51 [place]% % 6.2 Abs [place] <0.87 k/uL 0.67 Eosin% % 0.6 Abs Eosin <0.46 k/uL 0.07 Baso% % 0.5 Abs Baso <0.11 k/uL 0.05 Immature Gran % % 0.4 IMMATURE GRANS (ABS) <0.10 k/uL 0.04 NRBC /100 WBC 0.0 Absolute nRBC <0.01 k/uL <0.01 <0.01 DTYPE Auto Albumin 3.9 - 4.9 g/dL 3.3 (L) Calcium 8.5 - 10.2 mg/dL 9.0 Phosphorus 2.7 - 4.8 mg/dL 3.5 Glucose 74 - 99 mg/dL 72 (L) BUN 9 - 24 mg/dL 13 Creatinine 0.73 - 1.22 mg/dL 0.85 Sodium 136 - 144 mmol/L 140 Potassium 3.7 - 5.1 mmol/L 4.2 Chloride 98 - 107 mmol/L 105 CO2 22 - 30 mmol/L 21 (L) Anion Gap 8 - 15 mmol/L 14 eGFR >=60 mL/min/1.73m? 96 Legend: (L) Low (H) High Assessment and Plan: 1. Rash and nonspecific skin eruption 2. Disturbance of skin sensation - [place] oil at bedtime Sunday-Sunday. Take weekends off. Leave on overnight under a shower cap and rinse out in the morning. Avoid use on face, breasts, groin, or axiillae. Counseled patient regarding side effects of topical steroids including, but are not limited to: atrophy, striae, telangectasias, tachyphylaxis, pigmentary changes, as well as risk of cataracts and glaucoma with periocular use. Informed patient that topical steroids should only be used on active skin lesions and not on normal skin. - clobetasol 0.05% shampoo, apply, lather, wait 5-10 minutes, then rinse 1-3 times per week. Avoid use on face, breasts, groin, or axiillae. Counseled patient regarding side effects of topical steroids including, but are not limited to: atrophy, striae, telangectasias, tachyphylaxis, pigmentary changes, as well as risk of cataracts and glaucoma with periocular use. Informed patient that topical steroids should only be used on active skin lesions and not on normal skin. 3. Severe peripheral edema - likely combination of CHF and ibrutinib Punch biopsy to establish and confirm diagnosis. UNIVERSAL PROTOCOL / SAFETY CHECKLIST Procedure to be Performed: skin pu (more content not included)...[facility]01-13-2025 History of Present illness Narrative* Caroline Tristan - 07/14/2024 11:26 AM EST [facility] Refill Assessment Medication(s): Cosentyx Patient's current medication list and adherence status to current therapy were reviewed by Specialty Pharmacy clinical pharmacist to identify any new drug interactions or non-compliance to therapy. Therapy continues to be appropriate for disease, patient response, and medical condition. Verification of therapeutic benefit and effectiveness with current therapy was completed. Adverse events, barriers in adherence, and side effects were assessed and addressed if applicable. Will proceed with refill with no changes in therapy - patient progressing towards achieving therapeutic goals based on medication- specific laboratory parameters, disease state markers and outcomes. Office/provider notes have been reviewed prior to dispensing the medication. Board Certified Arts Therapist Assessment Patient confirmed: Yes Med/dose confirmed: Yes Supplies needed: No supplies needed Missed doses: No Estimated days supply on hand: 0 Next cycle/dose due: 07/27/24 Copay amount: 0 Copay form of payment: (N/A) Payment confirmed: Yes Delivery method: FedEx Signature required: Required ([facility], Medicaid, patient preference) [place] [address] [place] [address] Delivery date: 07/23/24 Questions or concerns for the pharmacist?: No Did you have any side effects believed to be related to this medication, that resulted in hospitalization?: No Current Outpatient Medications on File Prior to Visit Medication Sig ketoconazole (NIZORAL) 2 % shampoo Use on hair three times weekly, lather in and leave on for five to ten minutes before washing out. Sulfacetamide Sodium, Acne, (KLARON) 10 % susp Use twice daily as face wash to affected areas furosemide (LASIX) 40 mg tablet Take 1 tablet by mouth once daily. potassium chloride (KLOR-CON) 20 mEq packet Take 20 mEq by mouth once daily. secukinumab (COSENTYX PEN, 2 PENS,) 150 mg/mL Inject 300mg (2 pens) subcutaneously at weeks 0,1,2,3and 4, then 300mg (2 pens) every 4 weeks thereafter secukinumab (COSENTYX PEN, 2 PENS,) 150 mg/mL Inject 300mg (2 pens) every 4 weeks molnupiravir 200 mg capsule ascorbic acid, vitamin C, (VITAMIN C) 500 mg tablet Take 500 mg by mouth every other day. atorvastatin (LIPITOR) 10 mg tablet Take 10 mg by mouth daily at bedtime. VITAMIN D2 1,250 mcg (50,000 unit) capsule Take 50,000 Units by mouth every Sunday. temazepam (RESTORIL) 15 mg Take 15 mg by mouth daily at bedtime. acetaminophen (TYLENOL) 325 mg tablet Take 650 mg by mouth every 6 hours as needed for pain. lactobacillus rhamnosus (CULTURELLE) 10 billion cell capsule Take 1 capsule by mouth two times a day. ibrutinib (IMBRUVICA) 420 mg tablet Take 1 tablet by mouth once daily. ketoconazole (NIZORAL) 2 % shampoo Apply to affected area once daily as needed (dry skin). therapeutic multivitamin-minerals (THERA-M PLUS) 9 mg iron-400 mcg tablet Take 1 tablet by mouth once daily. ondansetron (ZOFRAN) 4 mg tablet Take 4 mg by mouth every 4 hours as needed for nausea/vomiting. calcium carbonate (TUMS) 500 mg chew Take 500 mg by mouth once daily. PARoxetine (PAXIL) 10 mg tablet Take 30 mg by mouth once daily. folic acid 1 mg tablet Take 1 mg by mouth once daily. No current facility-administered medications on file prior to visit. [facility] [place] CLINICAL ASSESSMENT - INFLAMMATORY CONDITIONS V6: Assessment to use: Refill Date of influenza vaccination reminder: 11/07/2023 Date of most recent vaccination assessment: 11/07/2023 Treatment Plan Information: Cosentyx 150mg/mL pens Inject 300mg (2 pens) subcutaneously at weeks 0,1,2,3 and 4, then 300mg (2 pens) every 4 weeks thereafter (L73.2) Hidradenitis suppurativa Past treatments: Humira Est. Tx Plan Start Date: 11/08/2023 Estimated Start Date Info: No information available Est. Estimated Treatment Duration: Until loss of efficacy and/or no longer tolerated. Caroline Tristan documented in this encounter[facility] [place] NoteHNO ID: [id number] Author: TAYLOR MONTILLA [facility] Service: ? Author Type: ? Type: Progress Notes Filed: 07/21/2024 20:15 Note Text: [facility] Ref[facility] Assessment Medication(s): Cosentyx Patient's current medication list and adherence status to current therapy were reviewed by Specialty Pharmacy clinical pharmacist to identify any new drug interactions or non-compliance to therapy. Therapy continues to be appropriate for disease, patient response, and medical condition. Verification of therapeutic benefit and effectiveness with current therapy was completed. Adverse events, barriers in adherence, and side effects were assessed and addressed if applicable. Will proceed with refill with no changes in therapy - patient progressing towards achieving therapeutic goals based on medication-specific laboratory parameters, disease state markers and outcomes. Office/provider notes have been reviewed prior to dispensing the medication. PDC 62%. Known adherence issues over the past few months stemming from confusion of the nursing staff at the facility where patient resides. Despite inconsistent dosing, most recent OV note from Dr. Armendariz on 06/30/24 notes patient is doing well on Cosentyx with improvement in HS. Esther Montilla, PharmD Clinical Pharmacist, [employer] [facility] ; Pool: P CC [facility] Pool #: [id number] Board Certified Arts Therapist Assessment Patient confirmed: Yes Med/dose confirmed: Yes Supplies needed: No supplies needed Missed doses: No Estimated days supply on hand: 0 Next cycle/dose due: 07/27/24 Copay amount: 0 Copay form of payment: (N/A) Payment confirmed: Yes Delivery method: FedEx Signature required: Required (, Medicaid, patient preference) Delivery address: [address] [address] [facility] [address] Delivery date: 07/23/24 Questions or concerns for the pharmacist?: No Did you have any side effects believed to be related to this medication, that resulted in hospitalization?: No Current Outpatient Medications on File Prior to Visit Medication Sig ketoconazole (NIZORAL) 2 % shampoo Use on hair three times weekly, lather in and leave on for five to ten minutes before washing out. Sulfacetamide Sodium, Acne, (KLARON) 10 % susp Use twice daily as face wash to affected areas furosemide (LASIX) 40 mg tablet Take 1 tablet by mouth once daily. potassium chloride (KLOR-CON) 20 mEq packet Take 20 mEq by mouth once daily. secukinumab (COSENTYX PEN, 2 PENS,) 150 mg/mL Inject 300mg (2 pens) subcutaneously at weeks 0,1,2,3 and 4, then 300mg (2 pens) every 4 weeks thereafter secukinumab (COSENTYX PEN, 2 PENS,) 150 mg/mL Inject 300mg (2 pens) every 4 weeks molnupiravir 200 mg capsule ascorbic acid, vitamin C, (VITAMIN C) 500 mg tablet Take 500 mg by mouth every other day. atorvastatin (LIPITOR) 10 mg tablet Take 10 mg by mouth daily at bedtime. VITAMIN D2 1,250 mcg (50,000 unit) capsule Take 50,000 Units by mouth every Sunday. temazepam (RESTORIL) 15 mg Take 15 mg by mouth daily at bedtime. acetaminophen (TYLENOL) 325 mg tablet Take 650 mg by mouth every 6 hours as needed for pain. lactobacillus rhamnosus (CULTURELLE) 10 billion cell capsule Take 1 capsule by mouth two times a day. ibrutinib (IMBRUVICA) 420 mg tablet Take 1 tablet by mouth once daily. ketoconazole (NIZORAL) 2 % shampoo Apply to affected area once daily as needed (dry skin). therapeutic multivitamin-minerals (THERA-M PLUS) 9 mg iron-400 mcg tablet Take 1 tablet by mouth once daily. ondansetron (ZOFRAN) 4 mg tablet Take 4 mg by mouth every 4 hours as needed for nausea/vomiting. calcium carbonate (TUMS) 500 mg chew Take 500 mg by mouth once daily. PARoxetine (PAXIL) 10 mg tablet Take 30 mg by mouth once daily. folic acid 1 mg tablet Take 1 mg by mouth once daily. No current facility-administered medications on file prior to visit. [facility] [place] CLINICAL ASSESSMENT - INFLAMMATORY CONDITIONS V6: Ivent complete: No Assessment to use: Refill Assessment of injection issues: Yes Infection screening, including annual TB assessment when applicable to medication: Yes Current medication list (including drug interaction assessment): Yes Experience of adverse reactions to the medication: Yes Date of influenza vaccination reminder: 11/07/2023 Date of most recent vaccination assessment: 11/07/2023 Treatment Plan Information: Cosentyx 150mg/mL pens Inject 300mg (2 pens) subcutaneously at weeks 0,1,2,3 and 4, then 300mg (2 pens) every 4 weeks thereafter (L73.2) Hidradenitis suppurativa Past treatments: Humira Est. Tx Plan Start Date: 11/08/2023 Estimated Start Date Info: No information available Est. Estimated Treatment Duration: Until loss of efficacy and/or no longer tolerated. [facility] History of Present illness Narrative* Jeremy Armendariz MD - 06/30/2024 10:15 AM EST Established patient CHIEF COMPLAINT: Hidradenitis suppurativa HISTORY OF PRESENT ILLNESS: Marycruz Vargas is a 64 year old male here for evaluation of hidradenitis suppurativa. LCV: 05/14/24; Provider: Oren Braun Today patient reports: pt reports the wound has healed - feels skin is dry now, feels like he is not aware of the side effects of medication and how it will affect him (Cosentyx) Cosentyx is helping with HS. Patient had a breakout with waxy liquid coming out of scalp. Dry substance (dust) is now still coming out of skin on scalp, fingernails due to build up. Causes pain and itching. Past Medical History PAST MEDICAL HISTORY Diagnosis Date Abscess, groin Anemia of chronic disease 12/20/2016 Per heme during inpatient stay 11/2016 Essential hypertension Hepatitis B carrier (HCC) HFrEF (heart failure with reduced ejection fraction) (HCC) Hidradenitis suppurativa Iron deficiency anemia 12/20/2016 Low HDL (under 40) 07/17/2017 Mixed hyperlipidemia Situational depression 07/18/2018 Smoker 12/20/2016 Started at age 16, Up to a PPD and as of 12/20/2016 doing about 1/2 PPD REVIEW OF SYSTEMS: Constitutional: Denies fever, chills, unintentional weight loss. Skin as per HPI Medications Current Outpatient Medications Medication Sig ketoconazole (NIZORAL) 2 % shampoo Use on hair three times weekly, lather in and leave on for five to ten minutes before washing out. Sulfacetamide Sodium, Acne, (KLARON) 10 % susp Use twice daily as face wash to affected areas furosemide (LASIX) 40 mg tablet Take 1 tablet by mouth once daily. potassium chloride (KLOR-CON) 20 mEq packet Take 20 mEq by mouth once daily. secukinumab (COSENTYX PEN, 2 PENS,) 150 mg/mL Inject 300mg (2 pens) subcutaneously at weeks 0,1,2,3and 4, then 300mg (2 pens) every 4 weeks thereafter secukinumab (COSENTYX PEN, 2 PENS,) 150 mg/mL Inject 300mg (2 pens) every 4 weeks molnupiravir 200 mg capsule ascorbic acid, vitamin C, (VITAMIN C) 500 mg tablet Take 500 mg by mouth every other day. atorvastatin (LIPITOR) 10 mg tablet Take 10 mg by mouth daily at bedtime. VITAMIN D2 1,250 mcg (50,000 unit) capsule Take 50,000 Units by mouth every Sunday. temazepam (RESTORIL) 15 mg Take 15 mg by mouth daily at bedtime. acetaminophen (TYLENOL) 325 mg tablet Take 650 mg by mouth every 6 hours as needed for pain. lactobacillus rhamnosus (CULTURELLE) 10 billion cell capsule Take 1 capsule by mouth two times a day. ibrutinib (IMBRUVICA) 420 mg tablet Take 1 tablet by mouth once daily. ketoconazole (NIZORAL) 2 % shampoo Apply to affected area once daily as needed (dry skin). therapeutic multivitamin-minerals (THERA-M PLUS) 9 mg iron-400 mcg tablet Take 1 tablet by mouth once daily. ondansetron (ZOFRAN) 4 mg tablet Take 4 mg by mouth every 4 hours as needed for nausea/vomiting. calcium carbonate (TUMS) 500 mg chew Take 500 mg by mouth once daily. PARoxetine (PAXIL) 10 mg tablet Take 30 mg by mouth once daily. folic acid 1 mg tablet Take 1 mg by mouth once daily. No current facility-administered medications for this visit. PHYSICAL EXAM: General: awake, alert, no acute distress Neuropsych: appropriate mood and affect Eyes: Sclerae anicteric, without conjunctival injection, eyelids unremarkable Skin exam performed including face, axillae, chest, abdomen. Patient declined genital exam. - Ill-defined hyperpigmented patches on forehead - Dorsal forearms with even hyperpigmentation, not removed with isopropyl alcohol - Scalp and hands including fingernails appear normal ASSESSMENT & PLAN: # Dyschromia # Hyperpigmentation # Disturbance of skin sensation Medical Complexity: undiagnosed new problem with uncertain prognosis - We discussed possible utility of skin biopsy to rule out etiologies such as lichen planus pigmentosus or other causes of hyperpigmentation (melasma, hemosiderin deposition, etc). Discussed risks and benefits of procedure. - Patient opposed to biopsy of christianity although this appears of highest yield area - We discussed that no abnormalities such as dirt or skin build up are visualized elsewhere; hyperpigmentation is not able to be removed with isopropyl alcohol making retention hyperkeratosis less likely - Patient prefers to have second opinion on need of biopsy with Dr. Faulkner, will assist in scheduling Patient advised of potential adverse effects of any medications discussed above and what to do if patient experiences any of these, including contacting clinic. Answered all questions. Patient expressed understanding. Return to clinic: with Dr. Faulkner, next available The patient is seen and examined by Dr. Armendariz and the following reflects his/her service. Scribed by Miriam Magaña MA Resident: Verna Betancourt MD I agree with the Chief Complaint, ROS, and Past Histories independently gathered by the clinical network support and the remaining scribed note accurately describes my personal service to the patient. Attending Note I agree with the ROS, and Past Histories independently gathered by the clinical network support and the remaining scribed note accurately describes my personal service to the patient. I evaluated the patient and personally participated in the [place] components. I agree with the resident/fellow's findings and plan as documented and have discussed the case and management of the patient's care with the resident/fellow. I agree with the resident's findings and plan. Jeremy Armendariz MD [facility] [place] NoteHNO ID: [id number] Author: JEREMY ARMENDARIZ MD Service: ? Author Type: Physician Type: Progress Notes Filed: 06/30/2024 11:38 Note Text: Established patient CHIEF COMPLAINT: Hidradenitis suppurativa HISTORY OF PRESENT ILLNESS: Marycruz Vargas is a 64 year old male here for evaluation of hidradenitis suppurativa. LCV: 05/14/24; Provider: Oren Braun Today patient reports: pt reports the wound has healed - feels skin is dry now, feels like he is not aware of the side effects of medication and how it will affect him (Cosentyx) Cosentyx is helping with HS. Patient had a breakout with waxy liquid coming out of scalp. Dry substance (dust) is now still coming out of skin on scalp, fingernails due to build up. Causes pain and itching. Past Medical History PAST MEDICAL HISTORY Diagnosis Date Abscess, groin Anemia of chronic disease 12/20/2016 Per heme during inpatient stay 11/2016 Essential hypertension Hepatitis B carrier (HCC) HFrEF (heart failure with reduced ejection fraction) (HCC) Hidradenitis suppurativa Iron deficiency anemia 12/20/2016 Low HDL (under 40) 07/17/2017 Mixed hyperlipidemia Situational depression 07/18/2018 Smoker 12/20/2016 Started at age 16, Up to a PPD and as of 12/20/2016 doing about 1/2 PPD REVIEW OF SYSTEMS: Constitutional: Denies fever, chills, unintentional weight loss. Skin as per HPI Medications Current Outpatient Medications Medication Sig ketoconazole (NIZORAL) 2 % shampoo Use on hair three times weekly, lather in and leave on for five to ten minutes before washing out. Sulfacetamide Sodium, Acne, (KLARON) 10 % susp Use twice daily as face wash to affected areas furosemide (LASIX) 40 mg tablet Take 1 tablet by mouth once daily. potassium chloride (KLOR-CON) 20 mEq packet Take 20 mEq by mouth once daily. secukinumab (COSENTYX PEN, 2 PENS,) 150 mg/mL Inject 300mg (2 pens) subcutaneously at weeks 0,1,2,3 and 4, then 300mg (2 pens) every 4 weeks thereafter secukinumab (COSENTYX PEN, 2 PENS,) 150 mg/mL Inject 300mg (2 pens) every 4 weeks molnupiravir 200 mg capsule ascorbic acid, vitamin C, (VITAMIN C) 500 mg tablet Take 500 mg by mouth every other day. atorvastatin (LIPITOR) 10 mg tablet Take 10 mg by mouth daily at bedtime. VITAMIN D2 1,250 mcg (50,000 unit) capsule Take 50,000 Units by mouth every Sunday. temazepam (RESTORIL) 15 mg Take 15 mg by mouth daily at bedtime. acetaminophen (TYLENOL) 325 mg tablet Take 650 mg by mouth every 6 hours as needed for pain. lactobacillus rhamnosus (CULTURELLE) 10 billion cell capsule Take 1 capsule by mouth two times a day. ibrutinib (IMBRUVICA) 420 mg tablet Take 1 tablet by mouth once daily. ketoconazole (NIZORAL) 2 % shampoo Apply to affected area once daily as needed (dry skin). therapeutic multivitamin-minerals (THERA-M PLUS) 9 mg iron-400 mcg tablet Take 1 tablet by mouth once daily. ondansetron (ZOFRAN) 4 mg tablet Take 4 mg by mouth every 4 hours as needed for nausea/vomiting. calcium carbonate (TUMS) 500 mg chew Take 500 mg by mouth once daily. PARoxetine (PAXIL) 10 mg tablet Take 30 mg by mouth once daily. folic acid 1 mg tablet Take 1 mg by mouth once daily. No current facility-administered medications for this visit. PHYSICAL EXAM: General: awake, alert, no acute distress Neuropsych: appropriate mood and affect Eyes: Sclerae anicteric, without conjunctival injection, eyelids unremarkable Skin exam performed including face, axillae, chest, abdomen. Patient declined genital exam. - Ill-defined hyperpigmented patches on forehead - Dorsal forearms with even hyperpigmentation, not removed with isopropyl alcohol - Scalp and hands including fingernails appear normal ASSESSMENT AND PLAN: # Dyschromia # Hyperpigmentation # Disturbance of skin sensation Medical Complexity: undiagnosed new problem with uncertain prognosis - We discussed possible utility of skin biopsy to rule out etiologies such as lichen planus pigmentosus or other causes of hyperpigmentation (melasma, hemosiderin deposition, etc). Discussed risks and benefits of procedure. - Patient opposed to biopsy of christianity although this appears of highest yield area - We discussed that no abnormalities such as dirt or skin build up are visualized elsewhere; hyperpigmentation is not able to be removed with isopropyl alcohol making retention hyperkeratosis less likely - Patient prefers to have second opinion on need of biopsy with Dr. Faulkner, will assist in scheduling Patient advised of potential adverse effects of any medications discussed above and what to do if patient experiences any of these, including contacting clinic. Answered all questions. Patient expressed understanding. Return to clinic: with Dr. Faulkner, next available The patient is seen and examined by Dr. Armendariz and the following reflects his/her service. Scribed by Miriam Magaña MA Resident: Verna Betancourt MD (more content not included)...[facility]12-13-[facility]24 History of Present illness Narrative* Tenisha Worthington - 06/13/2024 9:18 AM EST [facility] has been servicing patient for cycles/refills of Cosentyx. Plan Name: [employer] Medicare Phone/Fax: - / - PA reference number: [id number] Approval Dates: 06/13/2024-07/01/2025 [facility] will continue to service order accordingly. Tenisha Worthington [facility], Infl[facility] P: [phone] F: [phone] documented in this encounterSelect Medical [facility] [place]24 NoteHNO ID: [id number] Author: ?, ?, ? Service: ? Author Type: ? Type: Progress Notes Filed: 06/13/2024 09:20 Note Text: [facility] has been servicing patient for cycles/refills of Cosentyx. Plan Name: [employer] Medicare Phone/Fax: - / - PA reference number: [id number] Approval Dates: 06/13/2024-07/01/2025 [facility] will continue to service order accordingly. Tenisha Worthington [facility] P: [phone] F: [phone] Telephone encounter Note* Telephone Encounter - Abhijeet Faulkner MD, PhD - 05/21/2024 11:46 AM EST I am happy to see Mr. Vagras. OK to schedule him in my next open slot; in Dr. Stone's next openslot; or in an open resident continuity clinic slot and I will staff the encounter with the resident. Thank you. [facility] Work Phone: [phone] Miscellaneous Notes* Telephone Encounter - Abhijeet Faulkner MD, PhD - 05/21/2024 11:46 AM EST I am happy to see Mr. Vargas. OK to schedule him in my next open slot; in Dr. Stone's next openslot; or in an open resident continuity clinic slot and I will staff the encounter with the resident. Thank you. * Telephone Encounter - Astrid Mckenzie - 05/14/2024 4:28 PM EST Patient saw Dr. Braun today, see visit notes. Patient would like to see Dr. Faulkner. Please review Visit Notes from today, 05/14 and/or speak to Dr. Braun Will Dr. Faulkner see this patient Patient phone: [phone] (home) documented in this encounterSelect Medical [facility] [place]11-[facility] Telephone encounter Note * Telephone Encounter - Astrid Mckenzie - 05/14/2024 4:28 PM EST Patient saw Dr. Braun today, see visit notes. Patient would like to see Dr. Faulkner. Please review Visit Notes from today, 05/14 and/or speak to Dr. Braun Will Dr. Faulkner see this patient Patient phone: [phone] (home) [facility] [place]11-13-2024 History of Present illness Narrative* Oren Braun MD - 05/14/2024 2:00 PM EST Est Patient LV: 04/22/2024 Chief Complaint: HS Follow Up History of Present Ilness: Marycruz Vargas is a 64 year old male Patient is here for: 1) HS Follow up HS Location: anal region, scalp Treatment at last apt: Cosentyx, Clindamycin 1% lotion, BPO wash, Sulfacetamide wash, Ketoconazole 2% shampoo Using as prescribed: keto shampoo - using it three times weekly (drying hair out), Side effects from meds? Cosentyx q4 weeks - feels like 'toxins' are coming out in nails, scalp, hasvery swollen legs ever since starting cosentyx Overall Status: not well Resides at [facility] Pt reports that since last visit, the prescriptions have not helped He reports dirt coming from his fingernails, skin and hair Pertinent Past Medical History: History of skin cancer or atypical nevi No Specialty Problems Dermatology Problems Hydradenitis Hidradenitis suppurativa Bilateral finger numbness Hidradenitis suppurativa of anus Rash and nonspecific skin eruption Pertinent Family medical history: History of melanoma No Review of Systems: Constitutional: Denies fever, chills, night sweats, unintentional weight loss. Skin per HPI. No other new/concerning skin growth. Physical Exam: General: well appearing, of stated age, in no acute distress Neurology: alert and oriented times three Psychiatry: in a happy mood Skin: Ortiz skin type: IV Limited skin examination performed scalp, face, neck, lower extremities. Skin exam normal with the exception of: - Hyperpigmented patches submandibular area/anterior chin - 2+ bilateral lower extremity edema with eczematous hyperpigmented patches Assessment and Plan: 1. Rash and nonspecific skin eruption 2. Hyperpigmentation of skin - We discussed in depth that there is no abnormal skin build up or skin dirt identified on the skintoday - We discussed do not recommend any invasive procedures to remove dirt or skin debris from the body - Patient states he would like to see another linen worker like Dr. Faulkner who he saw in past. I let him know I will reach out to our scheduling team to assist with an appointment 3. Stasis dermatitis - Discussed etiology - Discussed recommendation for compression socks above the knee and elevating the legs as much as possible Return to clinic as needed. I spent 30 minutes in the room discussing the patient's concerns face to face. The documentation for this note was completed by Dedra Claire, RN acting as scribe for Aarti Braun MD. May 14, 2024 2:07 PM. I agree with the Chief Complaint, ROS, and Past Histories independently gathered by the clinical network support and the remaining scribed note accurately describes my personal service to the patient. Oren Braun MD May 14, 2024 documented in this encounterSelect Medical [facility] [place]11-13-2024 NoteHNO ID: [id number] Author: OREN BRAUN MD Service: ? Author Type: Physician Type: Progress Notes Filed: 05/14/2024 16:53 Note Text: Est Patient LV: 04/22/2024 Chief Complaint: HS Follow Up History of Present Ilness: Marycruz Vargas is a 64 year old male Patient is here for: 1) HS Follow up HS Location: anal region, scalp Treatment at last apt: Cosentyx, Clindamycin 1% lotion, BPO wash, Sulfacetamide wash, Ketoconazole 2% shampoo Using as prescribed: keto shampoo - using it three times weekly (drying hair out), Side effects from meds? Cosentyx q4 weeks - feels like 'toxins' are coming out in nails, scalp, has very swollen legs ever since starting cosentyx Overall Status: not well Resides at [facility] Pt reports that since last visit, the prescriptions have not helped He reports dirt coming from his fingernails, skin and hair Pertinent Past Medical History: History of skin cancer or atypical nevi No Specialty Problems Dermatology Problems Hydradenitis Hidradenitis suppurativa Bilateral finger numbness Hidradenitis suppurativa of anus Rash and nonspecific skin eruption Pertinent Family medical history: History of melanoma No Review of Systems: Constitutional: Denies fever, chills, night sweats, unintentional weight loss. Skin per HPI. No other new/concerning skin growth. Physical Exam: General: well appearing, of stated age, in no acute distress Neurology: alert and oriented times three Psychiatry: in a happy mood Skin: Ortiz skin type: IV Limited skin examination performed scalp, face, neck, lower extremities. Skin exam normal with the exception of: - Hyperpigmented patches submandibular area/anterior chin - 2+ bilateral lower extremity edema with eczematous hyperpigmented patches Assessment and Plan: 1. Rash and nonspecific skin eruption 2. Hyperpigmentation of skin - We discussed in depth that there is no abnormal skin build up or skin dirt identified on the skin today - We discussed do not recommend any invasive procedures to remove dirt or skin debris from the body - Patient states he would like to see another linen worker like Dr. Faulkner who he saw in past. I let him know I will reach out to our scheduling team to assist with an appointment 3. Stasis dermatitis - Discussed etiology - Discussed recommendation for compression socks above the knee and elevating the legs as much as possible Return to clinic as needed. I spent 30 minutes in the room discussing the patient's concerns face to face. The documentation for this note was completed by Dedra Claire RN acting as scribe for Oren Braun MD. May 14, 2024 2:07 PM. I agree with the Chief Complaint, ROS, and Past Histories independently gathered by the clinical network support and the remaining scribed note accurately describes my personal service to the patient. Oren Braun MD [facility] 14[facility] Telephone encounter Note* Telephone Encounter - Jeremy Campos - 04/22/2024 11:55 AM EDT Contacted [facility] and they stated they can either take a paper Rx or the Rx's must be sent in to [facility]. Pharmacy has been update to [facility]. [facility] [place]10-22-2024 Miscellaneous Notes* Telephone Encounter - Jeremy Campos - 04/22/2024 11:55 AM EDT Contacted [facility] and they stated they can either take a paper Rx or the Rx's must be sent in to [facility]. Pharmacy has been update to [facility]. documented in this encounterSelect Medical [facility] [place]10-[facility]24 History of Present illness Narrative* Oren Braun MD - 04/22/2024 8:20 AM EDT EST PT TIERRA: 08/27/2023 Jeremy Armendariz MD Chief Complaint: Hidradenitis suppurativa History of Present Ilness: Marycruz Vargas is a 64 year old male Patient is here for: 1) HS Current treatment: he is on cosentyx currently. Past treatments: clindamycin lotion 1% twice daily, BPO wash once daily, ILK - patient with history of CLL, will ask hem/onc for their permission to start cosentyx - Dr. Christopher Mccabe - In reserve: ILK to active areas Pertinent Past Medical History: History of skin cancer or atypical nevi No Specialty Problems Dermatology Problems Hydradenitis Hidradenitis suppurativa Bilateral finger numbness Hidradenitis suppurativa of anus Rash and nonspecific skin eruption Pertinent Family medical history: History of melanoma No Review of Systems: Constitutional: Denies fever, chills, night sweats, unintentional weight loss. Skin per HPI. No other new/concerning skin growth. Physical Exam: General: well appearing, of stated age, in no acute distress Neurology: alert and oriented times three Psychiatry: in a happy mood Skin: Ortiz skin type: IV Limited skin examination performed of scalp, face, upper and lower extremities performed. Skin exam normal with the exception of: - scalp with dew deep-seated nodules, scarring, improved from prior - edema and xerosis of lower extremities Assessment and Plan: #Hidradenitis suppurativa, involving buttocks #Dissecting Cellulitis - Medical Complexity: chronic illness - improving on cosentyx - Continue cosentyx as prescribed - Discussed there are no changes on the skin today suggestive of dirt or dust, skin is improving asexpected Plan: - Clindamycin 1% lotion twice daily to affected areas with flares. Instructed to use benzoyl peroxide wash once daily while using this medication to prevent antibiotic resistance. - START sulfacetamide wash, use this twice daily - START ketoconazole 2% shampoo. Lather into scalp and leave on for 5 minutes before washing off. You may use your regular shampoo or head and shoulders to wash your hair afterwards. Patient asking if we can contact [facility] to be sure medications will be ready for him - will contact #Stasis dermatitis - Recommend compression stockings for the legs - Discussed importance of liberal emollients -can consider kenalog injections to active areas in the future Patient advised of potential adverse effects of any medications discussed above and what to do if patient experiences any of these, including contacting clinic. Answered all questions. Patient expressed understanding. Return to clinic: 2 weeks The documentation for this note was completed by Izabella Guallpa RN acting as scribe for Emelyn Machado MD. April 22, 2024 8:25 AM. I agree with the Chief Complaint, ROS, and Past Histories independently gathered by the clinical network support and the remaining scribed note accurately describes my personal service to the patient. Emelyn Machado MD April 22, 2024 Staff Attestation: I have seen and evaluated the patient and discussed the case with the resident physician. I agree with the assessment and plan as documented in the resident s note. Oren Braun MD April 22, 2024 11:16 AM documented in this [facility] [place] NoteHNO ID: [id number] Author: OREN BRAUN MD Service: ? Author Type: Physician Type: Progress Notes Filed: 04/22/2024 11:16 Note Text: EST PT TIERRA: 08/27/2023 Jeremy Armendariz MD Chief Complaint: Hidradenitis suppurativa History of Present Ilness: Marycruz Vargas is a 64 year old male Patient is here for: 1) HS Current treatment: he is on cosentyx currently. Past treatments: clindamycin lotion 1% twice daily, BPO wash once daily, ILK - patient with history of CLL, will ask hem/onc for their permission to start cosentyx - Dr. Christopher Mccabe - In reserve: ILK to active areas Pertinent Past Medical History: History of skin cancer or atypical nevi No Specialty Problems Dermatology Problems Hydradenitis Hidradenitis suppurativa Bilateral finger numbness Hidradenitis suppurativa of anus Rash and nonspecific skin eruption Pertinent Family medical history: History of melanoma No Review of Systems: Constitutional: Denies fever, chills, night sweats, unintentional weight loss. Skin per HPI. No other new/concerning skin growth. Physical Exam: General: well appearing, of stated age, in no acute distress Neurology: alert and oriented times three Psychiatry: in a happy mood Skin: Ortiz skin type: IV Limited skin examination performed of scalp, face, upper and lower extremities performed. Skin exam normal with the exception of: - scalp with dew deep-seated nodules, scarring, improved from prior - edema and xerosis of lower extremities Assessment and Plan: #Hidradenitis suppurativa, involving buttocks #Dissecting Cellulitis - Medical Complexity: chronic illness - improving on cosentyx - Continue cosentyx as prescribed - Discussed there are no changes on the skin today suggestive of dirt or dust, skin is improving as expected Plan: - Clindamycin 1% lotion twice daily to affected areas with flares. Instructed to use benzoyl peroxide wash once daily while using this medication to prevent antibiotic resistance. - START sulfacetamide wash, use this twice daily - START ketoconazole 2% shampoo. Lather into scalp and leave on for 5 minutes before washing off. You may use your regular shampoo or head and shoulders to wash your hair afterwards. Patient asking if we can contact his [facility] to be sure medications will be ready for him - will contact #Stasis dermatitis - Recommend compression stockings for the legs - Discussed importance of liberal emollients -can consider kenalog injections to active areas in the future Patient advised of potential adverse effects of any medications discussed above and what to do if patient experiences any of these, including contacting clinic. Answered all questions. Patient expressed understanding. Return to clinic: 2 weeks The documentation for this note was completed by Izabella Guallpa RN acting as scribe for Emelyn Machado MD. April 22, 2024 8:25 AM. I agree with the Chief Complaint, ROS, and Past Histories independently gathered by the clinical network support and the remaining scribed note accurately describes my personal service to the patient. Emelyn Machado MD April 22, 2024 Staff Attestation: I have seen and evaluated the patient and discussed the case with the resident physician. I agree with the assessment and plan as documented in the resident?s note. Oren Braun MD April 22, 2024 11:16 [facility] 04-01-2024 History of Present illness Narrative* Sujata Malagon RN - 04/01/2024 9:10 AM EDT NO SHOW documented in this encounterSelect [facility] [place]24 NoteHNO ID: [id number] Author: SUJATA MALAGON RN Service: ? Author Type: Registered Nurse Type: Progress Notes Filed: 04/01/2024 09:24 Note [facility] NoteHNO ID: [id number] Author: ?, ?, ? Service: ? Author Type: ? Type: Progress Notes Filed: 06/16/2024 13:32 Note Text: [facility] Assessment Medication(s): Cosentyx Patient's current medication list and adherence status to current therapy were reviewed by Specialty Pharmacy clinical pharmacist to identify any new drug interactions or non-compliance to therapy. Therapy continues to be appropriate for disease, patient response, and medical condition. Verification of therapeutic benefit and effectiveness with current therapy was completed. Adverse events, barriers in adherence, and side effects were assessed and addressed if applicable. Will proceed with refill with no changes in therapy - patient progressing towards achieving therapeutic goals based on medication-specific laboratory parameters, disease state markers and outcomes. Office/provider notes have been reviewed prior to dispensing the medication. Board Certified Arts Therapist Assessment Patient confirmed: Yes Med/dose confirmed: Yes Supplies needed: No supplies needed Missed doses: No Estimated days supply on hand: 0 Copay amount: 0 Payment confirmed: Yes Delivery method: FedEx Signature required: No Delivery address: [address] [address] [facility] [address] Delivery date: 06/18/24 Questions or concerns for the pharmacist?: No Did you have any side effects believed to be related to this medication, that resulted in hospitalization?: No Current Outpatient Medications on File Prior to Visit Medication Sig furosemide (LASIX) 40 mg tablet Take 1 tablet by mouth once daily. potassium chloride (KLOR-CON) 20 mEq packet Take 20 mEq by mouth once daily. secukinumab (COSENTYX PEN, 2 PENS,) 150 mg/mL Inject 300mg (2 pens) subcutaneously at weeks 0,1,2,3 and 4, then 300mg (2 pens) every 4 weeks thereafter secukinumab (COSENTYX PEN, 2 PENS,) 150 mg/mL Inject 300mg (2 pens) every 4 weeks molnupiravir 200 mg capsule ascorbic acid, vitamin C, (VITAMIN C) 500 mg tablet Take 500 mg by mouth every other day. atorvastatin (LIPITOR) 10 mg tablet Take 10 mg by mouth daily at bedtime. VITAMIN D2 1,250 mcg (50,000 unit) capsule Take 50,000 Units by mouth every Sunday. temazepam (RESTORIL) 15 mg Take 15 mg by mouth daily at bedtime. acetaminophen (TYLENOL) 325 mg tablet Take 650 mg by mouth every 6 hours as needed for pain. lactobacillus rhamnosus (CULTURELLE) 10 billion cell capsule Take 1 capsule by mouth two times a day. ibrutinib (IMBRUVICA) 420 mg tablet Take 1 tablet by mouth once daily. ketoconazole (NIZORAL) 2 % shampoo Apply to affected area once daily as needed (dry skin). therapeutic multivitamin-minerals (THERA-M PLUS) 9 mg iron-400 mcg tablet Take 1 tablet by mouth once daily. ondansetron (ZOFRAN) 4 mg tablet Take 4 mg by mouth every 4 hours as needed for nausea/vomiting. calcium carbonate (TUMS) 500 mg chew Take 500 mg by mouth once daily. PARoxetine (PAXIL) 10 mg tablet Take 30 mg by mouth once daily. folic acid 1 mg tablet Take 1 mg by mouth once daily. No current facility-administered medications on file prior to visit. [facility] [place] CLINICAL ASSESSMENT - INFLAMMATORY CONDITIONS V6: Assessment to use: Refill Date of influenza vaccination reminder: 11/07/2023 Date of most recent vaccination assessment: 11/07/2023 Treatment Plan Information: Cosentyx 150mg/mL pens Inject 300mg (2 pens) subcutaneously at weeks 0,1,2,3 and 4, then 300mg (2 pens) every 4 weeks thereafter (L73.2) Hidradenitis suppurativa Past treatments: Humira Est. Tx Plan Start Date: 11/08/2023 Estimated Start Date Info: No information available Est. Estimated Treatment Duration: Until loss of efficacy and/or no longer tolerated. Tenisha Worthington CPhT [facility] P: [phone] F: [phone]-24-2024 NoteHNO ID: [id number] Author: TAYLOR MONTILLA [facility] Service: ? Author Type: ? Type: Progress Notes Filed: 06/16/2024 13:40 Note Text: [facility] Ref[facility] Assessment Medication(s): Cosentyx Patient's current medication list and adherence status to current therapy were reviewed by Specialty Pharmacy clinical pharmacist to identify any new drug interactions or non-compliance to therapy. Therapy continues to be appropriate for disease, patient response, and medical condition. Verification of therapeutic benefit and effectiveness with current therapy was completed. Adverse events, barriers in adherence, and side effects were assessed and addressed if applicable. Will proceed with refill with no changes in therapy - patient progressing towards achieving therapeutic goals based on medication-specific laboratory parameters, disease state markers and outcomes. Office/provider notes have been reviewed prior to dispensing the medication. Patient has upcoming Derm appointment on 06/30/24. Eshter Montilla, SandroD Clinical Pharmacist, [employer] [facility] [place] [facility] ; Pool: P CC [facility] Pool #: [id number] Board Certified Arts Therapist Assessment Patient confirmed: Yes Med/dose confirmed: Yes Supplies needed: No supplies needed Missed doses: No Estimated days supply on hand: 0 Copay amount: 0 Payment confirmed: Yes Delivery method: FedEx Signature required: Required (, Medicaid, patient preference) Delivery [address] [address] [place] [address] Delivery date: 06/18/24 Questions or concerns for the pharmacist?: No Did you have any side effects believed to be related to this medication, that resulted in hospitalization?: No Current Outpatient Medications on File Prior to Visit Medication Sig furosemide (LASIX) 40 mg tablet Take 1 tablet by mouth once daily. potassium chloride (KLOR-CON) 20 mEq packet Take 20 mEq by mouth once daily. secukinumab (COSENTYX PEN, 2 PENS,) 150 mg/mL Inject 300mg (2 pens) subcutaneously at weeks 0,1,2,3 and 4, then 300mg (2 pens) every 4 weeks thereafter secukinumab (COSENTYX PEN, 2 PENS,) 150 mg/mL Inject 300mg (2 pens) every 4 weeks molnupiravir 200 mg capsule ascorbic acid, vitamin C, (VITAMIN C) 500 mg tablet Take 500 mg by mouth every other day. atorvastatin (LIPITOR) 10 mg tablet Take 10 mg by mouth daily at bedtime. VITAMIN D2 1,250 mcg (50,000 unit) capsule Take 50,000 Units by mouth every Sunday. temazepam (RESTORIL) 15 mg Take 15 mg by mouth daily at bedtime. acetaminophen (TYLENOL) 325 mg tablet Take 650 mg by mouth every 6 hours as needed for pain. lactobacillus rhamnosus (CULTURELLE) 10 billion cell capsule Take 1 capsule by mouth two times a day. ibrutinib (IMBRUVICA) 420 mg tablet Take 1 tablet by mouth once daily. ketoconazole (NIZORAL) 2 % shampoo Apply to affected area once daily as needed (dry skin). therapeutic multivitamin-minerals (THERA-M PLUS) 9 mg iron-400 mcg tablet Take 1 tablet by mouth once daily. ondansetron (ZOFRAN) 4 mg tablet Take 4 mg by mouth every 4 hours as needed for nausea/vomiting. calcium carbonate (TUMS) 500 mg chew Take 500 mg by mouth once daily. PARoxetine (PAXIL) 10 mg tablet Take 30 mg by mouth once daily. folic acid 1 mg tablet Take 1 mg by mouth once daily. No current facility-administered medications on file prior to visit. [facility] [place] CLINICAL ASSESSMENT - INFLAMMATORY CONDITIONS V6: Ivent complete: No Assessment to use: Refill Assessment of injection issues: Yes Infection screening, including annual TB assessment when applicable to medication: Yes Current medication list (including drug interaction assessment): Yes Experience of adverse reactions to the medication: Yes Date of influenza vaccination reminder: 11/07/2023 Date of most recent vaccination assessment: 11/07/2023 Treatment Plan Information: Cosentyx 150mg/mL pens Inject 300mg (2 pens) subcutaneously at weeks 0,1,2,3 and 4, then 300mg (2 pens) every 4 weeks thereafter (L73.2) Hidradenitis suppurativa Past treatments: Humira Est. Tx Plan Start Date: 11/08/2023 Estimated Start Date Info: No information available Est. Estimated Treatment Duration: Until loss of efficacy and/or no longer tolerated. Tenisha Worthington CPhT [facility] P: [phone] F: [phone]08-27-2024 History of Present illness Narrative* Stefany Rowe - 02/26/2024 11:47 AM EDT [facility] Medication(s): Cosentyx Patient's current medication list and adherence status to current therapy were reviewed by Specialty Pharmacy clinical pharmacist to identify any new drug interactions or non-compliance to therapy. Therapy continues to be appropriate for disease, patient response, and medical condition. Verification of therapeutic benefit and effectiveness with current therapy was completed. Adverse events, barriers in adherence, and side effects were assessed and addressed if applicable. Will proceed with refill with no changes in therapy - patient progressing towards achieving therapeutic goals based on medication- specific laboratory parameters, disease state markers and outcomes. Board Certified Arts Therapist Assessment Patient confirmed: Yes Med/dose confirmed: Yes Supplies needed: No supplies needed Missed doses: No Estimated days supply on hand: 1 Next cycle/dose due: 03/07/24 Copay amount: 0 Payment confirmed: Yes Delivery method: FedEx Signature required: Required (, Medicaid, patient preference) Delivery address: [address] [place] [address] Nursing [employer],[place], [place],[address] Delivery date: 02/28/24 Questions or concerns for the pharmacist?: No Did you have any side effects believed to be related to this medication, that resulted in hospitalization?: No Current Outpatient Medications on File Prior to Visit Medication Sig Clindamycin Phosphate (CLEOCIN T) 1 % lotion Apply to affected area once daily for 14 days. doxycycline hyclate (VIBRAMYCIN) 100 mg capsule Take 1 capsule (100 mg) by mouth every 12 hours at 6 am and 6 pm for 26 doses. furosemide (LASIX) 40 mg tablet Take 1 tablet by mouth once daily. potassium chloride (KLOR-CON) 20 mEq packet Take 20 mEq by mouth once daily. secukinumab (COSENTYX PEN, 2 PENS,) 150 mg/mL Inject 300mg (2 pens) subcutaneously at weeks 0,1,2,3and 4, then 300mg (2 pens) every 4 weeks thereafter secukinumab (COSENTYX PEN, 2 PENS,) 150 mg/mL Inject 300mg (2 pens) every 4 weeks molnupiravir 200 mg capsule ascorbic acid, vitamin C, (VITAMIN C) 500 mg tablet Take 500 mg by mouth every other day. atorvastatin (LIPITOR) 10 mg tablet Take 10 mg by mouth daily at bedtime. VITAMIN D2 1,250 mcg (50,000 unit) capsule Take 50,000 Units by mouth every Sunday. temazepam (RESTORIL) 15 mg Take 15 mg by mouth daily at bedtime. acetaminophen (TYLENOL) 325 mg tablet Take 650 mg by mouth every 6 hours as needed for pain. lactobacillus rhamnosus (CULTURELLE) 10 billion cell capsule Take 1 capsule by mouth two times a day. ibrutinib (IMBRUVICA) 420 mg tablet Take 1 tablet by mouth once daily. ketoconazole (NIZORAL) 2 % shampoo Apply to affected area once daily as needed (dry skin). therapeutic multivitamin-minerals (THERA-M PLUS) 9 mg iron-400 mcg tablet Take 1 tablet by mouth once daily. ondansetron (ZOFRAN) 4 mg tablet Take 4 mg by mouth every 4 hours as needed for nausea/vomiting. calcium carbonate (TUMS) 500 mg chew Take 500 mg by mouth once daily. PARoxetine (PAXIL) 10 mg tablet Take 30 mg by mouth once daily. folic acid 1 mg tablet Take 1 mg by mouth once daily. No current facility-administered medications on file prior to visit. [facility] [place] CLINICAL ASSESSMENT - INFLAMMATORY CONDITIONS V6: Assessment to use: Refill Date of influenza vaccination reminder: 11/07/2023 Date of most recent vaccination assessment: 11/07/2023 Treatment Plan Information: Cosentyx 150mg/mL pens Inject 300mg (2 pens) subcutaneously at weeks 0,1,2,3 and 4, then 300mg (2 pens) every 4 weeks thereafter (L73.2) Hidradenitis suppurativa Past treatments: Humira Est. Tx Plan Start Date: 11/08/2023 Estimated Start Date Info: No information available Est. Estimated Treatment Duration: Until loss of efficacy and/or no longer tolerated. Stefany Rowe [facility] P: [phone] F:[phone] * Demond Jenkins, [facility] - 02/26/2024 11:47 AM EDT [facility] Medication(s): Cosentyx Patient's current medication list and adherence status to current therapy were reviewed by Specialty Pharmacy clinical pharmacist to identify any new drug interactions or non-compliance to therapy. Therapy continues to be appropriate for disease, patient response, and medical condition. Verification of therapeutic benefit and effectiveness with current therapy was completed. Adverse events, barriers in adherence, and side effects were assessed and addressed if applicable. Will proceed with refill with no changes in therapy - patient progressing towards achieving therapeutic goals based on medication- specific laboratory parameters, disease state markers and outcomes. Demond Jenkins, PharmD Clinical Pharmacist [facility] Pool: P [facility] Pool #: [id number] Board Certified Arts Therapist Assessment Patient confirmed: Yes Med/dose confirmed: Yes Supplies needed: No supplies needed Missed doses: No Estimated days supply on hand: 1 Next cycle/dose due: 03/07/24 Copay amount: 0 Payment confirmed: Yes Delivery method: FedEx Signature required: Required (, Medicaid, patient preference) Delivery address: [address] [place] [address] [employer],[place], [place],[address] Delivery date: 02/28/24 Questions or concerns for the pharmacist?: No Did you have any side effects believed to be related to this medication, that resulted in hospitalization?: No Current Outpatient Medications on File Prior to Visit Medication Sig Clindamycin Phosphate (CLEOCIN T) 1 % lotion Apply to affected area once daily for 14 days. doxycycline hyclate (VIBRAMYCIN) 100 mg capsule Take 1 capsule (100 mg) by mouth every 12 hours at 6 am and 6 pm for 26 doses. furosemide (LASIX) 40 mg tablet Take 1 tablet by mouth once daily. potassium chloride (KLOR-CON) 20 mEq packet Take 20 mEq by mouth once daily. secukinumab (COSENTYX PEN, 2 PENS,) 150 mg/mL Inject 300mg (2 pens) subcutaneously at weeks 0,1,2,3and 4, then 300mg (2 pens) every 4 weeks thereafter secukinumab (COSENTYX PEN, 2 PENS,) 150 mg/mL Inject 300mg (2 pens) every 4 weeks molnupiravir 200 mg capsule ascorbic acid, vitamin C, (VITAMIN C) 500 mg tablet Take 500 mg by mouth every other day. atorvastatin (LIPITOR) 10 mg tablet Take 10 mg by mouth daily at bedtime. VITAMIN D2 1,250 mcg (50,000 unit) capsule Take 50,000 Units by mouth every Sunday. temazepam (RESTORIL) 15 mg Take 15 mg by mouth daily at bedtime. acetaminophen (TYLENOL) 325 mg tablet Take 650 mg by mouth every 6 hours as needed for pain. lactobacillus rhamnosus (CULTURELLE) 10 billion cell capsule Take 1 capsule by mouth two times a day. ibrutinib (IMBRUVICA) 420 mg tablet Take 1 tablet by mouth once daily. ketoconazole (NIZORAL) 2 % shampoo Apply to affected area once daily as needed (dry skin). therapeutic multivitamin-minerals (THERA-M PLUS) 9 mg iron-400 mcg tablet Take 1 tablet by mouth once daily. ondansetron (ZOFRAN) 4 mg tablet Take 4 mg by mouth every 4 hours as needed for nausea/vomiting. calcium carbonate (TUMS) 500 mg chew Take 500 mg by mouth once daily. PARoxetine (PAXIL) 10 mg tablet Take 30 mg by mouth once daily. folic acid 1 mg tablet Take 1 mg by mouth once daily. No current facility-administered medications on file prior to visit. [facility] [place] CLINICAL ASSESSMENT - INFLAMMATORY CONDITIONS V6: Ivent complete: No Assessment to use: Refill Assessment of injection issues: Yes Infection screening, including annual TB assessment when applicable to medication: Yes Current medication list (including drug interaction assessment): Yes Experience of adverse reactions to the medication: Yes Date of influenza vaccination reminder: 11/07/2023 Date of most recent vaccination assessment: 11/07/2023 Treatment Plan Information: Cosentyx 150mg/mL pens Inject 300mg (2 pens) subcutaneously at weeks 0,1,2,3 and 4, then 300mg (2 pens) every 4 weeks thereafter (L73.2) Hidradenitis suppurativa Past treatments: Humira Est. Tx Plan Start Date: 11/08/2023 Estimated Start Date Info: No information available Est. Estimated Treatment Duration: Until loss of efficacy and/or no longer tolerated. Demond Jenkins RPh documented in this encounterSelect Medical [facility] [place]24 NoteHNO ID: [id number] Author: DEMOND JENKINS RPh Service: ? Author Type: Pharmacist Type: Progress Notes Filed: 02/26/2024 15:23 Note Text: [facility] Assessment Medication(s): Cosentyx Patient's current medication list and adherence status to current therapy were reviewed by Specialty Pharmacy clinical pharmacist to identify any new drug interactions or non-compliance to therapy. Therapy continues to be appropriate for disease, patient response, and medical condition. Verification of therapeutic benefit and effectiveness with current therapy was completed. Adverse events, barriers in adherence, and side effects were assessed and addressed if applicable. Will proceed with refill with no changes in therapy - patient progressing towards achieving therapeutic goals based on medication-specific laboratory parameters, disease state markers and outcomes. Demond Jenkins, SandroD Clinical Pharmacist [facility] Pool: P [facility] Pool #: [id number] Board Certified Arts Therapist Assessment Patient confirmed: Yes Med/dose confirmed: Yes Supplies needed: No supplies needed Missed doses: No Estimated days supply on hand: 1 Next cycle/dose due: 03/07/24 Copay amount: 0 Payment confirmed: Yes Delivery method: FedEx Signature required: Required ([facility], Medicaid, patient preference) Delivery address: [address] [place] [address] Nursing Staff,[place], [place],[address] Delivery date: 02/28/24 Questions or concerns for the pharmacist?: No Did you have any side effects believed to be related to this medication, that resulted in hospitalization?: No Current Outpatient Medications on File Prior to Visit Medication Sig Clindamycin Phosphate (CLEOCIN T) 1 % lotion Apply to affected area once daily for 14 days. doxycycline hyclate (VIBRAMYCIN) 100 mg capsule Take 1 capsule (100 mg) by mouth every 12 hours at 6 am and 6 pm for 26 doses. furosemide (LASIX) 40 mg tablet Take 1 tablet by mouth once daily. potassium chloride (KLOR-CON) 20 mEq packet Take 20 mEq by mouth once daily. secukinumab (COSENTYX PEN, 2 PENS,) 150 mg/mL Inject 300mg (2 pens) subcutaneously at weeks 0,1,2,3 and 4, then 300mg (2 pens) every 4 weeks thereafter secukinumab (COSENTYX PEN, 2 PENS,) 150 mg/mL Inject 300mg (2 pens) every 4 weeks molnupiravir 200 mg capsule ascorbic acid, vitamin C, (VITAMIN C) 500 mg tablet Take 500 mg by mouth every other day. atorvastatin (LIPITOR) 10 mg tablet Take 10 mg by mouth daily at bedtime. VITAMIN D2 1,250 mcg (50,000 unit) capsule Take 50,000 Units by mouth every Sunday. temazepam (RESTORIL) 15 mg Take 15 mg by mouth daily at bedtime. acetaminophen (TYLENOL) 325 mg tablet Take 650 mg by mouth every 6 hours as needed for pain. lactobacillus rhamnosus (CULTURELLE) 10 billion cell capsule Take 1 capsule by mouth two times a day. ibrutinib (IMBRUVICA) 420 mg tablet Take 1 tablet by mouth once daily. ketoconazole (NIZORAL) 2 % shampoo Apply to affected area once daily as needed (dry skin). therapeutic multivitamin-minerals (THERA-M PLUS) 9 mg iron-400 mcg tablet Take 1 tablet by mouth once daily. ondansetron (ZOFRAN) 4 mg tablet Take 4 mg by mouth every 4 hours as needed for nausea/vomiting. calcium carbonate (TUMS) 500 mg chew Take 500 mg by mouth once daily. PARoxetine (PAXIL) 10 mg tablet Take 30 mg by mouth once daily. folic acid 1 mg tablet Take 1 mg by mouth once daily. No current facility-administered medications on file prior to visit. [facility] CLINICAL ASSESSMENT - INFLAMMATORY CONDITIONS V6: Ivent complete: No Assessment to use: Refill Assessment of injection issues: Yes Infection screening, including annual TB assessment when applicable to medication: Yes Current medication list (including drug interaction assessment): Yes Experience of adverse reactions to the medication: Yes Date of influenza vaccination reminder: 11/07/2023 Date of most recent vaccination assessment: 11/07/2023 Treatment Plan Information: Cosentyx 150mg/mL pens Inject 300mg (2 pens) subcutaneously at weeks 0,1,2,3 and 4, then 300mg (2 pens) every 4 weeks thereafter (L73.2) Hidradenitis suppurativa Past treatments: Humira Est. Tx Plan Start Date: 11/08/2023 Estimated Start Date Info: No information available Est. Estimated Treatment Duration: Until loss of efficacy and/or no longer tolerated. Demond Jenkins, [facility] [place]08-27-2024 NoteHNO ID: [id number] Author: ?, ?, ? Service: ? Author Type: ? Type: Progress Notes Filed: 02/26/2024 11:57 Note Text: [facility] Specialty Refill Assessment Medication(s): Cosentyx Patient's current medication list and adherence status to current therapy were reviewed by Specialty Pharmacy clinical pharmacist to identify any new drug interactions or non-compliance to therapy. Therapy continues to be appropriate for disease, patient response, and medical condition. Verification of therapeutic benefit and effectiveness with current therapy was completed. Adverse events, barriers in adherence, and side effects were assessed and addressed if applicable. Will proceed with refill with no changes in therapy - patient progressing towards achieving therapeutic goals based on medication-specific laboratory parameters, disease state markers and outcomes. Board Certified Arts Therapist Assessment Patient confirmed: Yes Med/dose confirmed: Yes Supplies needed: No supplies needed Missed doses: No Estimated days supply on hand: 1 Next cycle/dose due: 03/07/24 Copay amount: 0 Payment confirmed: Yes Delivery method: FedEx Signature required: Required (, Medicaid, patient preference) Delivery address: [id number] [place] [address] Nursing Staff,[place],[address] Delivery date: 02/28/24 Questions or concerns for the pharmacist?: No Did you have any side effects believed to be related to this medication, that resulted in hospitalization?: No Current Outpatient Medications on File Prior to Visit Medication Sig Clindamycin Phosphate (CLEOCIN T) 1 % lotion Apply to affected area once daily for 14 days. doxycycline hyclate (VIBRAMYCIN) 100 mg capsule Take 1 capsule (100 mg) by mouth every 12 hours at 6 am and 6 pm for 26 doses. furosemide (LASIX) 40 mg tablet Take 1 tablet by mouth once daily. potassium chloride (KLOR-CON) 20 mEq packet Take 20 mEq by mouth once daily. secukinumab (COSENTYX PEN, 2 PENS,) 150 mg/mL Inject 300mg (2 pens) subcutaneously at weeks 0,1,2,3 and 4, then 300mg (2 pens) every 4 weeks thereafter secukinumab (COSENTYX PEN, 2 PENS,) 150 mg/mL Inject 300mg (2 pens) every 4 weeks molnupiravir 200 mg capsule ascorbic acid, vitamin C, (VITAMIN C) 500 mg tablet Take 500 mg by mouth every other day. atorvastatin (LIPITOR) 10 mg tablet Take 10 mg by mouth daily at bedtime. VITAMIN D2 1,250 mcg (50,000 unit) capsule Take 50,000 Units by mouth every Sunday. temazepam (RESTORIL) 15 mg Take 15 mg by mouth daily at bedtime. acetaminophen (TYLENOL) 325 mg tablet Take 650 mg by mouth every 6 hours as needed for pain. lactobacillus rhamnosus (CULTURELLE) 10 billion cell capsule Take 1 capsule by mouth two times a day. ibrutinib (IMBRUVICA) 420 mg tablet Take 1 tablet by mouth once daily. ketoconazole (NIZORAL) 2 % shampoo Apply to affected area once daily as needed (dry skin). therapeutic multivitamin-minerals (THERA-M PLUS) 9 mg iron-400 mcg tablet Take 1 tablet by mouth once daily. ondansetron (ZOFRAN) 4 mg tablet Take 4 mg by mouth every 4 hours as needed for nausea/vomiting. calcium carbonate (TUMS) 500 mg chew Take 500 mg by mouth once daily. PARoxetine (PAXIL) 10 mg tablet Take 30 mg by mouth once daily. folic acid 1 mg tablet Take 1 mg by mouth once daily. No current facility-administered medications on file prior to visit. [facility] [place] SPECIAL[facility] CLINICAL ASSESSMENT - INFLAMMATORY CONDITIONS V6: Assessment to use: Refill Date of influenza vaccination reminder: 11/07/2023 Date of most recent vaccination assessment: 11/07/2023 Treatment Plan Information: Cosentyx 150mg/mL pens Inject 300mg (2 pens) subcutaneously at weeks 0,1,2,3 and 4, then 300mg (2 pens) every 4 weeks thereafter (L73.2) Hidradenitis suppurativa Past treatments: Humira Est. Tx Plan Start Date: 11/08/2023 Estimated Start Date Info: No information available Est. Estimated Treatment Duration: Until loss of efficacy and/or no longer tolerated. Stefany Rowe [facility] P: [phone] F:[phone]16-2024 NoteHNO ID: [id number] Author: ARIANA NARANJO MD Service: ? Author Type: Physician Type: Progress Notes Filed: 02/15/2024 14:35 Note Text: PROGRESS NOTE: Parts of the documentation for this note were completed by CASSIE Lombardo for Ariana Naranjo MD. February 15, 2024 1:27 PM. Marycruz Vargas is a 64 year old male here for: Chief Complaint: hidradenitis suppurativa History of Present Ilness: Location: Right hip Duration: 1 months Symptoms (growing, itching, bleeding, tender): Change in skin color Current treatment: Doxycycline 100mg, Cosentyx, Clindamycin 1% lotion Past treatments: Humira, oral antibiotics, BPO wash, as above Narrative/Interval history: Overall doing OK today. Taking all medications as prescribed. Currently is in a prison for rehabilitation. Has CLL. Pertinent Past Medical History: History of melanoma? No History of non melanoma skin cancer? No History of atypical nevi? No History of blistering sunburns? No History of tanning bed use? No History of organ transplantation? No History of immunosuppression/exposure to radiation? No He has a past medical history of Abscess, groin, Anemia of chronic disease (12/20/2016), Essential hypertension, Hepatitis B carrier (HCC), HFrEF (heart failure with reduced ejection fraction) (HCC), Hidradenitis suppurativa, Iron deficiency anemia (12/20/2016), Low HDL (under 40) (07/17/2017), Mixed hyperlipidemia, Situational depression (07/18/2018), and Smoker (12/20/2016). Pertinent Family Medical History: History of melanoma? No Pertinent Social History: Current Smoker? No Other: : N/A : N/A Pacemaker/Defibrillator: No Aspirin/anticoagulant use: No History of valve replacement: No History of joint replacement: No Review of Systems: Constitutional: - Fever: No, chills: No, night sweats: No, cough: No, muscle aches: No, unintentional weight loss: No. Skin: No other skin complaints except as noted in HPI. Physical Exam: WD, WN, NAD. Normal mood and affect. Exam included: Face R arm L arm R leg L leg All normal except: - Limited exam today. Assessment and Plan: 1. Hidradenitis suppurativa 2. Dissecting cellulitis of scalp - Stable. 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 No additional concerns today. Continue Cosentyx, doxycycline, and clindamycin lotion as prescribed. Labs/Imaging reviewed: Yes Prior pathology reviewed: No Outside records reviewed: No External notes from each unique source reviewed: No Procedures: N/A Medical Decision Making: Problems: Low: Stable chronic illness Risk: Moderate: Drug management Medical Decision Making Level: 3 - Low Return if symptoms worsen or fail to improve. or sooner if concerns/questions. Medications / Allergies / Immunizations: has a current medication list which includes the following prescription(s): clindamycin phosphate, doxycycline hyclate, furosemide, potassium chloride, cosentyx pen (2 pens), cosentyx pen (2 pens), molnupiravir, ascorbic acid (vitamin c), atorvastatin, vitamin d2, temazepam, acetaminophen, lactobacillus rhamnosus, ibrutinib, ketoconazole, therapeutic multivitamin-minerals, ondansetron, calcium carbonate, paroxetine, and folic acid. ALLERGIES No Known Allergies I agree with the Chief Complaint, ROS, and Past Histories independently gathered by the clinical network support and the remaining scribed note accurately describes my personal service to the patient. [facility]aranjo [facility] History of Present illness Narrative* Ariana Naranjo V, MD - 02/15/2024 1:27 PM EDT PROGRESS NOTE: Parts of the documentation for this note were completed by CASSIE Lombardo for Ariana Naranjo MD. February 15, 2024 1:27 PM. Marycruz Vargas is a 64 year old male here for: Chief Complaint: hidradenitis suppurativa History of Present Ilness: Location: Right hip Duration: 1 months Symptoms (growing, itching, bleeding, tender): Change in skin color Current treatment: Doxycycline 100mg, Cosentyx, Clindamycin 1% lotion Past treatments: Humira, oral antibiotics, BPO wash, as above Narrative/Interval history: Overall doing OK today. Taking all medications as prescribed. Currentlyis in a prison for rehabilitation. Has CLL. Pertinent Past Medical History: History of melanoma? No History of non melanoma skin cancer? No History of atypical nevi? No History of blistering sunburns? No History of tanning bed use? No History of organ transplantation? No History of immunosuppression/exposure to radiation? No He has a past medical history of Abscess, groin, Anemia of chronic disease (12/20/2016), Essential hypertension, Hepatitis B carrier (HCC), HFrEF (heart failure with reduced ejection fraction) (HCC),Hidradenitis suppurativa, Iron deficiency anemia (12/20/2016), Low HDL (under 40) (07/17/2017), Mixed hyperlipidemia, Situational depression (07/18/2018), and Smoker (12/20/2016). Pertinent Family Medical History: History of melanoma? No Pertinent Social History: Current Smoker? No Other: : N/A : N/A Pacemaker/Defibrillator: No Aspirin/anticoagulant use: No History of valve replacement: No History of joint replacement: No Review of Systems: Constitutional: - Fever: No, chills: No, night sweats: No, cough: No, muscle aches: No, unintentional weight loss: No. Skin: No other skin complaints except as noted in HPI. Physical Exam: WD, WN, NAD. Normal mood and affect. Exam included: Face R arm L arm R leg L leg All normal except: - Limited exam today. Assessment and Plan: 1. Hidradenitis suppurativa 2. Dissecting cellulitis of scalp - Stable. 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 No additional concerns today. Continue Cosentyx, doxycycline, and clindamycin lotion as prescribed. Labs/Imaging reviewed: Yes Prior pathology reviewed: No Outside records reviewed: No External notes from each unique source reviewed: No Procedures: N/A Medical Decision Making: Problems: Low: Stable chronic illness Risk: Moderate: Drug management Medical Decision Making Level: 3 - Low Return if symptoms worsen or fail to improve. or sooner if concerns/questions. Medications / Allergies / Immunizations: has a current medication list which includes the following prescription(s): clindamycin phosphate, doxycycline hyclate, furosemide, potassium chloride, cosentyx pen (2 pens), cosentyx pen (2 pens), molnupiravir, ascorbic acid (vitamin c), atorvastatin, vitamin d2, temazepam, acetaminophen, lactobacillus rhamnosus, ibrutinib, ketoconazole, therapeutic multivitamin-minerals, ondansetron, calcium carbonate, paroxetine, and folic acid. ALLERGIES No Known Allergies I agree with the Chief Complaint, ROS, and Past Histories independently gathered by the clinical network support and the remaining scribed note accurately describes my personal service to the patient. Ariana Naranjo MD Dermatology [facility] NoteHNO ID: [id number] Author: MILAGROS FERRER RN Service: Care Management Author Type: Registered Nurse Type: Care Mgt Progress Note Filed: 02/15/2024 10:16 Note Text: CARE MANAGEMENT DISCHARGE NOTE SERVICE DATE: February 15, 2024 SERVICE TIME: 10:14 AM Admission Date: 02/09/2024 LOS: 5 days Discharge Arrangement Discharge Arrangement: Extended Care Facility Services Arranged Medical Services: Other: See Comment (ECF) Caregiver Assessment Caregiver is ready, willing and able to meet the patient's needs as recommended by the inter-professional team: Yes Name of Caregiver: [facility] Transportation Arrangements Transportation Arrangements: Car Handoff Communication: Primary Care Physician Name/Phone: Dinora Bansal MD - [phone] Additional Information: Discharge Information Row Name ED to Hosp-Admission (Current) from 02/09/2024 in HOSP [facility]; [address] [place] [address] Patient asking to DC today. Asked patient to call Mario and let them know that he is cancelling his appeal. Planning for patient's brother to pick him up and take him to his derm appointment and then take him to [facility] where he lives as ECF. Spoke with Wei at the ECF and they are ok with bother transporting. [facility]MT Transport cancelled. DC instructions placed in DC packet and given to patient, also sent via [employer]. SIGNATURE: Milagros Ferrer, RN, BSN PATIENT NAME: Marycruz Vargas DATE: February 15, 2024 TIME: 10:13 AM CONTACT #: [phone]-15-2024 Note HNO ID: [id number] Author: PAU TSANG APRN.COOPERER Service: Hospital Medicine Author Type: Nurse Practitioner Type: Progress Notes Filed: 02/14/2024 12:01 Note Text: DEPARTMENT OF HOSPITAL MEDICINE PROGRESS NOTE SERVICE DATE: 02/14/2024 SERVICE TIME: 11:58 AM Hospital Medicine/Primary Attending: Rajesh Baumann MD NIGHT AND WEEKEND COVERAGE: [facility] COVERAGE: Days: [phone], please page Pau Tsang for patient issues. Nights: [phone], please page Team GIM 2: G/H 8th floor: [address]; Non 8th floor [address] Subjective INTERVAL HPI: - Remains medically ready for discharge, no new complaints. Wants to leave tomorrow before his dermatology appt in [place]. - Awaiting appeal decision. Current Facility-Administered Medications Medication Dose Route Frequency NaCl 0.9% iv flush bag 20 mL INTRAVENOUS PRN acetaminophen 650 mg tab(s) (TYLENOL) 650 mg ORAL q 6 H PRN calcium carbonate 500 mg chewable tab(s) (TUMS) 500 mg ORAL DAILY lactobacillus rhamnosus 10 billion cell (CULTURELLE) capsule 1 capsule ORAL BID atorvastatin 10 mg tab(s) (LIPITOR) 10 mg ORAL AT BEDTIME folic acid 1 mg tab(s) 1 mg ORAL DAILY multivitamin-ferrous fumarate-folic acid 1 tablet (CENTRUM) 1 tablet ORAL DAILY temazepam 15 mg cap(s) (RESTORIL) 15 mg ORAL AT BEDTIME PARoxetine 30 mg tab(s) (PAXIL) 30 mg ORAL DAILY ascorbic acid (vitamin C) 500 mg tab(s) (VITAMIN C) 500 mg ORAL q 48 H potassium chloride 40 mEq oral powder (KLOR-CON) 40 mEq ORAL DAILY sodium chloride 0.9 % (flush) 2-10 mL (BD POSIFLUSH) 2-10 mL INTRAVENOUS DIRECTED PRN And perflutren lipid microspheres 1.1 mg/mL 1.3 mL injection (DEFINITY) 1.3 mL INTRAVENOUS DIRECTED PRN sodium hypochlorite 0.125 % (DAKIN'S QUARTER STRENGTH) IRRIGATION DAILY furosemide 40 mg tab(s) (LASIX) 40 mg ORAL DAILY ibrutinib 420 mg tab(s) (IMBRUVICA) 420 mg ORAL DAILY Clindamycin Phosphate 1 % lotion (CLEOCIN T) TOPICAL DAILY doxycycline hyclate 100 mg cap(s) (VIBRAMYCIN) 100 mg ORAL q 12 H 6a/6p Objective PHYSICAL EXAM: BP 131/69 Pulse 68 Temp (Src) 97.5 (Oral) Resp 16 Ht 6' 4 (1.93m) Wt 271 lb 13.2 oz (123.3kg) SpO2 100% BMI 33.10 kg/(m2). O2 Therapy: Room Air Physical Exam Performed GENERAL: Alert, cooperative SKIN: Skin color, texture, turgor normal. No rashes or lesions. HEAD/SINUSES: R scalp lesions. LUNGS: Lungs clear to auscultation, Good diaphragmatic excursion CARDIAC: Normal S1 and S2; no rubs, murmurs, or gallops ABDOMEN: Abdomen soft, non-tender,bowel sounds present EXTREMITIES: RLE trace edema, LLE 1+ edema. No ulcers NEURO: motor, cognition, and sensation grossly intact. Non-focal PULSES: 2+ radial, 2+ DP WOUND: Dressing intact Lines, Drains, and Airways Line Duration Peripheral 02/11/24 1839 [facility] Right Forearm 22 Gauge 2 days Reviewed lines and needs to be continued: REASONS: Difficulty in obtaining/maintaining access DATA: Diagnostic tests reviewed for today's visit: Most recent labs Most recent imaging Most recent EKG Assessment/Plan Problem List Edema of both lower legs (POA: Yes) Hidradenitis suppurativa (POA: Yes) Essential hypertension (POA: Yes) CLL (chronic lymphocytic leukemia) (HCC) (POA: Yes) HFrEF (heart failure with reduced ejection fraction) (HCC) (POA: Yes) Leukocytosis (POA: Yes) HLD (hyperlipidemia) (POA: Yes) Atrial fibrillation (HCC) (POA: Yes) Wound of right buttock (POA: Yes) Bradycardia (POA: Yes) Rash and nonspecific skin eruption (POA: Yes) Obesity, Class I, BMI 30-34.9 (POA: Yes) HOSPITAL COURSE: Marycruz Vargas is a 64 year old male with PMH significant for: -CLL, on ibrutinib (follows with [employer] Dr. Mccabe in [place], [place]) -Afib (not on chronic ac) -HS, on Cosentyx injections -HFrEF -HLD -HTN -depression Who presented from SNF with concern for worsening b/l LE edema over the past month. No SOB, DALAL, orthopnea, cough, chest pain, palpitations. Known HFrEF, last ECHO 01/2022 EF 51%. Started Cosentyx for HS in 10/2023. In the ED he was HDS. Labs with mild hypokalemia, mild leukocytosis, CRP 2.6, ESR 16. NTproBNP nl. DVT US negative. CT A/P with stable soft tissue thickening over b/l gluteal region; chronic wound in the medial R gluteal region without fluid collection. He was admitted to Medicine. Principal Problem: #Edema of both lower legs #HFrEF (heart failure with reduced ejection fraction) ([facility]) -presented from SNF with worsening b/l LE edema over the past month -No SOB, DALAL, orthopnea, cough, chest pain, palpitations -Known HFrEF, last ECHO 01/2022 EF 51% -Started Cosentyx for HS in 10/2023 -NTproBNP nl -DVT US negative -CXR without e/o hypervolemia - Echo without new changes Plan: -lasix 40mg PO daily -ARSEN wrap b/l LE Active Problems: #Hidradenitis suppurativa #Wound of right buttock #Leukocytosis -WBC 11, CRP 2.6/ESR 16 -known HS, on secukinumab (Cosentyx) injection (more content not included)... [facility]08-14-2024 NoteHNO ID: [id number] Author: FLY PHILLIPS, BASHIR Service: Nursing Author Type: Registered Nurse Type: Nursing Progress Note Filed: 02/13/2024 15:42 Note Text: Patient appealing discharge , medicare .[facility]08-14-2024 NoteHNO ID: [id number] Author: PAU TSANG APRN.CNP Service: Hospital Medicine Author Type: Nurse Practitioner Type: Progress Notes Filed: 02/13/2024 14:24 Note Text: DEPARTMENT OF HOSPITAL MEDICINE PROGRESS NOTE SERVICE DATE: 02/13/2024 SERVICE TIME: 2:15 PM Hospital Medicine/Primary Attending: Rajesh Baumann MD NIGHT AND WEEKEND COVERAGE: [facility] COVERAGE: Days: [phone], please page Pau Tsang for patient issues. Nights: [phone], please page Team GIM 2: G/H 8th floor: [address]; Non 8th floor [address] Subjective INTERVAL HPI: - Pt is medically ready for discharge back to [facility]. - Pt states he is not ready to be discharged citing, I just went through a traumatic experience and am just now starting to feel better. I need to stay here to get my mind right before going back to where the traumatic experience occurred....You also don't know what this toxin is in my body, some of it may be water, but not all of it.... you can let me stay another day. - Pt is appealing discharge. Current Facility-Administered Medications Medication Dose Route Frequency NaCl 0.9% iv flush bag 20 mL INTRAVENOUS PRN acetaminophen 650 mg tab(s) (TYLENOL) 650 mg ORAL q 6 H PRN calcium carbonate 500 mg chewable tab(s) (TUMS) 500 mg ORAL DAILY lactobacillus rhamnosus 10 billion cell (CULTURELLE) capsule 1 capsule ORAL BID atorvastatin 10 mg tab(s) (LIPITOR) 10 mg ORAL AT BEDTIME folic acid 1 mg tab(s) 1 mg ORAL DAILY multivitamin-ferrous fumarate-folic acid 1 tablet (CENTRUM) 1 tablet ORAL DAILY temazepam 15 mg cap(s) (RESTORIL) 15 mg ORAL AT BEDTIME PARoxetine 30 mg tab(s) (PAXIL) 30 mg ORAL DAILY ascorbic acid (vitamin C) 500 mg tab(s) (VITAMIN C) 500 mg ORAL q 48 H potassium chloride 40 mEq oral powder (KLOR-CON) 40 mEq ORAL DAILY sodium chloride 0.9 % (flush) 2-10 mL (BD POSIFLUSH) 2-10 mL INTRAVENOUS DIRECTED PRN And perflutren lipid microspheres 1.1 mg/mL 1.3 mL injection (DEFINITY) 1.3 mL INTRAVENOUS DIRECTED PRN sodium hypochlorite 0.125 % (DAKIN'S QUARTER STRENGTH) IRRIGATION DAILY furosemide 40 mg tab(s) (LASIX) 40 mg ORAL DAILY ibrutinib 420 mg tab(s) (IMBRUVICA) 420 mg ORAL DAILY Clindamycin Phosphate 1 % lotion (CLEOCIN T) TOPICAL DAILY doxycycline hyclate 100 mg cap(s) (VIBRAMYCIN) 100 mg ORAL q 12 H 6a/6p Objective PHYSICAL EXAM: BP 129/64 Pulse 77 Temp (Src) 97.5 (Oral) Resp 17 Ht 6' 4 (1.93m) Wt 274 lb 4 oz (124.4kg) SpO2 100% BMI 33.40 kg/(m2). O2 Therapy: Room Air Physical Exam Performed GENERAL: Alert, cooperative SKIN: Skin color, texture, turgor normal. No rashes or lesions. HEAD/SINUSES: R scalp lesions. LUNGS: Lungs clear to auscultation, Good diaphragmatic excursion CARDIAC: Normal S1 and S2; no rubs, murmurs, or gallops ABDOMEN: Abdomen soft, non-tender,bowel sounds present EXTREMITIES: RLE trace edema, LLE 1+ edema. No ulcers NEURO: motor, cognition, and sensation grossly intact. Non-focal PULSES: 2+ radial, 2+ DP WOUND: Dressing intact Lines, Drains, and Airways Line Duration Peripheral 02/11/24 5639 [facility] Right Forearm 22 Gauge 1 day Reviewed lines and needs to be continued: REASONS: Difficulty in obtaining/maintaining access DATA: Diagnostic tests reviewed for today's visit: Most recent labs Most recent imaging Most recent EKG Assessment/Plan Problem List Edema of both lower legs (POA: Yes) Hidradenitis suppurativa (POA: Yes) Essential hypertension (POA: Yes) CLL (chronic lymphocytic leukemia) (HCC) (POA: Yes) HFrEF (heart failure with reduced ejection fraction) (HCC) (POA: Yes) Leukocytosis (POA: Yes) HLD (hyperlipidemia) (POA: Yes) Atrial fibrillation (HCC) (POA: Yes) Wound of right buttock (POA: Yes) Bradycardia (POA: Yes) Rash and nonspecific skin eruption (POA: Yes) Obesity, Class I, BMI 30-34.9 (POA: Yes) HOSPITAL COURSE: Marycruz Vargas is a 64 year old male with PMH significant for: -CLL, on ibrutinib (follows with [employer] Install[facility] Dr. Mccabe in [place], [place]) -Afib (not on chronic ac) -HS, on Cosentyx injections -HFrEF -HLD -HTN -depression Who presented from [facility] with concern for worsening b/l LE edema over the past month. No SOB, DALAL, orthopnea, cough, chest pain, palpitations. Known HFrEF, last ECHO 01/2022 EF 51%. Started Cosentyx for HS in 10/2023. In the ED he was HDS. Labs with mild hypokalemia, mild leukocytosis, CRP 2.6, ESR 16. NTproBNP nl. DVT US negative. CT A/P with stable soft tissue thickening over b/l gluteal region; chronic wound in the medial R gluteal region without fluid collection. He was admitted to Medicine. Principal Problem: #Edema of both lower legs #HFrEF (heart failure with reduced ejection fraction) ([facility]) -presented from [facility] with worsening b/l LE edema over the past month -No SOB, DALAL, orthopnea, cough, chest pain, palpitations -Known HFrEF, last ECHO 01/2022 EF 51% -Started Cosentyx for HS in more content not included)...[facility]08-14-2024 NoteHNO ID: [id number] Author: JOSE FIELDS TECHNOLOGIST Service: ? Author Type: Technologist Type: Progress Notes Filed: 02/13/2024 11:27 Note Text: EVENT MONITOR DISPOSABLE PATCH INSTRUCTIONS Patient Name: Marycruz Vargas [facility] Number: [id number] Skin prepped and cleansed with alcohol Patch secured to prepped area Monitor Activated Serial #: [id number] Patient Instructed: Prescribed order timeframe Bathing guidelines Usage of event button and diary documentation Return of monitor at the end of prescribed order Call with problems [phone] or [phone]. [phone] Patient expresses a good understanding of instructions [facility]IST [facility] History of Present illness Narrative* Jose Fields TECHNOLOGIST - 02/13/2024 11:26 AM EDT EVENT MONITOR DISPOSABLE PATCH INSTRUCTIONS Patient Name: Marycruz Vargas [facility] Number: [id number] Skin prepped and cleansed with alcohol Patch secured to prepped area Monitor Activated Serial #: [id number] Patient Instructed: Prescribed order timeframe Bathing guidelines Usage of event button and diary documentation Return of monitor at the end of prescribed order Call with problems [phone] or [phone]. [phone] Patient expresses a good understanding of instructions Jose Fields TECHNOLOGIST documented [facility] [place] NoteEducation (CARDMN) MARYCRUZ VARGAS ([id number]) 1960 M [facility] Date Time Provider Department 02/13/24 7:00 AM ARRHYTHMIA MONITORING LAB CARDMN Reason for Visit: Event [921] Cmt: Zio patch Primary Visit Diagnosis:Sinus bradycardia [R00.1] During your visit today, we recorded the following information about you: Allergies As of Date: 02/13/2024 (No Known Allergies) Date Reviewed: 02/13/2024 Reviewed by: Eugenia Higgins, RN - Fully Assessed Prescriptions as of 02/13/2024 - Clindamycin Phosphate (CLEOCIN T) 1 % lotion Apply to affected area once daily for 14 days. - doxycycline hyclate (VIBRAMYCIN) 100 mg capsule Take 1 capsule (100 mg) by mouth every 12 hours at 6 am and 6 pm for 26 doses. - furosemide (LASIX) 40 mg tablet Take 1 tablet by mouth once daily. - potassium chloride (KLOR-CON) 20 mEq packet Take 20 mEq by mouth once daily. - secukinumab (COSENTYX PEN, 2 PENS,) 150 mg/mL Inject 300mg (2 pens) subcutaneously at weeks 0,1,2,3 and 4, then 300mg (2 pens) every 4 weeks thereafter - secukinumab (COSENTYX PEN, 2 PENS,) 150 mg/mL Inject 300mg (2 pens) every 4 weeks - molnupiravir 200 mg capsule - ascorbic acid, vitamin C, (VITAMIN C) 500 mg tablet Take 500 mg by mouth every other day. - atorvastatin (LIPITOR) 10 mg tablet Take 10 mg by mouth daily at bedtime. - VITAMIN D2 1,250 mcg (50,000 unit) capsule Take 50,000 Units by mouth every Sunday. - temazepam (RESTORIL) 15 mg Take 15 mg by mouth daily at bedtime. - acetaminophen (TYLENOL) 325 mg tablet Take 650 mg by mouth every 6 hours as needed for pain. - lactobacillus rhamnosus (CULTURELLE) 10 billion cell capsule Take 1 capsule by mouth two times a day. - ibrutinib (IMBRUVICA) 420 mg tablet Take 1 tablet by mouth once daily. - ketoconazole (NIZORAL) 2 % shampoo Apply to affected area once daily as needed (dry skin). - therapeutic multivitamin-minerals (THERA-M PLUS) 9 mg iron-400 mcg tablet Take 1 tablet by mouth once daily. - ondansetron (ZOFRAN) 4 mg tablet Take 4 mg by mouth every 4 hours as needed for nausea/vomiting. - calcium carbonate (TUMS) 500 mg chew Take 500 mg by mouth once daily. - PARoxetine (PAXIL) 10 mg tablet Take 30 mg by mouth once daily. - folic acid 1 mg tablet Take 1 mg by mouth once daily. Facility-Administered Medications as of 02/13/2024 - Clindamycin Phosphate 1 % lotion (CLEOCIN T) - doxycycline hyclate 100 mg cap(s) (VIBRAMYCIN) - ibrutinib 420 mg tab(s) (IMBRUVICA) - NaCl 0.9% iv flush bag - acetaminophen 650 mg tab(s) (TYLENOL) - calcium carbonate 500 mg chewable tab(s) (TUMS) - lactobacillus rhamnosus 10 billion cell (CULTURELLE) capsule - atorvastatin 10 mg tab(s) (LIPITOR) - folic acid 1 mg tab(s) - multivitamin-ferrous fumarate-folic acid 1 tablet (CENTRUM) - temazepam 15 mg cap(s) (RESTORIL) - PARoxetine 30 mg tab(s) (PAXIL) - ascorbic acid (vitamin C) 500 mg tab(s) (VITAMIN C) - potassium chloride 40 mEq oral powder (KLOR-CON) - sodium chloride 0.9 % (flush) 2-10 mL (BD POSIFLUSH) - perflutren lipid microspheres 1.1 mg/mL 1.3 mL injection (DEFINITY) - sodium hypochlorite 0.125 % (DAKIN'S QUARTER STRENGTH) - furosemide 40 mg tab(s) (LASIX) Encounter Status:Closed by ELIZABETHJOSE on 02/13/24[facility]13[facility]2024 NoteHNO ID: [id number] Author: PAU TSANG APRN.COOPERER Service: Hospital Medicine Author Type: Nurse Practitioner Type: Progress Notes Filed: 02/12/2024 10:55 Note Text: DEPARTMENT OF HOSPITAL MEDICINE PROGRESS NOTE SERVICE DATE: 02/12/2024 SERVICE TIME: 10:46 AM Hospital Medicine/Primary Attending: Rajesh Baumann MD NIGHT AND WEEKEND COVERAGE: [facility] COVERAGE: Days: [phone], please page Pau Tsang for patient issues. Nights: [phone], please page Team GIM 2: G/H 8th floor: [address]; Non 8th floor [address] Subjective INTERVAL HPI: -No further bradycardia episodes with discontinuation of metoprolol. Appreciate cards eval. Will order ziopatch and cards follow up on discharge. Will keep metoprolol off until seen by cards. -Appreciate dermatology evaluation yesterday. Pt does not seem as fixated on toxic dust and dirt today. -reports continued LLE edema and left hand edema. Edema to RLE improved. Will add IV laix 20 mg this afternoon. -Pt is medically ready for discharge back to [facility] pending precert Current Facility-Administered Medications Medication Dose Route Frequency NaCl 0.9% iv flush bag 20 mL INTRAVENOUS PRN acetaminophen 650 mg tab(s) (TYLENOL) 650 mg ORAL q 6 H PRN calcium carbonate 500 mg chewable tab(s) (TUMS) 500 mg ORAL DAILY lactobacillus rhamnosus 10 billion cell (CULTURELLE) capsule 1 capsule ORAL BID atorvastatin 10 mg tab(s) (LIPITOR) 10 mg ORAL AT BEDTIME folic acid 1 mg tab(s) 1 mg ORAL DAILY multivitamin-ferrous fumarate-folic acid 1 tablet (CENTRUM) 1 tablet ORAL DAILY temazepam 15 mg cap(s) (RESTORIL) 15 mg ORAL AT BEDTIME PARoxetine 30 mg tab(s) (PAXIL) 30 mg ORAL DAILY ascorbic acid (vitamin C) 500 mg tab(s) (VITAMIN C) 500 mg ORAL q 48 H potassium chloride 40 mEq oral powder (KLOR-CON) 40 mEq ORAL DAILY sodium chloride 0.9 % (flush) 2-10 mL (BD POSIFLUSH) 2-10 mL INTRAVENOUS DIRECTED PRN And perflutren lipid microspheres 1.1 mg/mL 1.3 mL injection (DEFINITY) 1.3 mL INTRAVENOUS DIRECTED PRN sodium hypochlorite 0.125 % (DAKIN'S QUARTER STRENGTH) IRRIGATION DAILY furosemide 40 mg tab(s) (LASIX) 40 mg ORAL DAILY ibrutinib 420 mg tab(s) (IMBRUVICA) 420 mg ORAL DAILY benzoyl peroxide 5 % TOPICAL DAILY Clindamycin Phosphate 1 % lotion (CLEOCIN T) TOPICAL DAILY furosemide 20 mg injection (LASIX) 20 mg INTRAVENOUS ONCE Objective PHYSICAL EXAM: BP 136/59 Pulse 67 Temp (Src) 97.2 (Oral) Resp 16 Ht 6' 4 (1.93m) Wt 276 lb 14.4 oz (125.6kg) SpO2 94% BMI 33.72 kg/(m2). O2 Therapy: Room Air Physical Exam Performed GENERAL: Alert, cooperative SKIN: Skin color, texture, turgor normal. No rashes or lesions. HEAD/SINUSES: R scalp lesions. LUNGS: Lungs clear to auscultation, Good diaphragmatic excursion CARDIAC: Normal S1 and S2; no rubs, murmurs, or gallops ABDOMEN: Abdomen soft, non-tender,bowel sounds present EXTREMITIES: RLE trace edema, LLE 1+ edema. No ulcers NEURO: motor, cognition, and sensation grossly intact. Non-focal PULSES: 2+ radial, 2+ DP WOUND: Dressing intact Lines, Drains, and Airways Line Duration Peripheral 02/11/24 0819 [facility] Right Forearm 22 Gauge <1 day Reviewed lines and needs to be continued: REASONS: Difficulty in obtaining/maintaining access DATA: Diagnostic tests reviewed for today's visit: Most recent labs Most recent imaging Most recent EKG Assessment/Plan Problem List Edema of both lower legs (POA: Yes) Hidradenitis suppurativa (POA: Yes) Essential hypertension (POA: Yes) CLL (chronic lymphocytic leukemia) (HCC) (POA: Yes) HFrEF (heart failure with reduced ejection fraction) (HCC) (POA: Yes) Leukocytosis (POA: Yes) HLD (hyperlipidemia) (POA: Yes) Atrial fibrillation (HCC) (POA: Yes) Wound of right buttock (POA: Yes) Bradycardia (POA: Yes) Rash and nonspecific skin eruption (POA: Status not on file) HOSPITAL COURSE: Marycruz Vargas is a 64 year old male with PMH significant for: -CLL, on ibrutinib (follows with [employer] Install[employer] Dr. Mccabe in [place], [place]) -Afib (not on chronic ac) -HS, on Cosentyx injections -HFrEF -HLD -HTN -depression Who presented from SNF with concern for worsening b/l LE edema over the past month. No SOB, DALAL, orthopnea, cough, chest pain, palpitations. Known HFrEF, last ECHO 01/2022 EF 51%. Started Cosentyx for HS in 10/2023. In the ED he was HDS. Labs with mild hypokalemia, mild leukocytosis, CRP 2.6, ESR 16. NTproBNP nl. DVT US negative. CT A/P with stable soft tissue thickening over b/l gluteal region; chronic wound in the medial R gluteal region without fluid collection. He was admitted to Medicine. Principal Problem: #Edema of both lower legs #HFrEF (heart failure with reduced ejection fraction) (HCC) -presented from SNF with worsening b/l LE edema over the past month -No SOB, DALAL, orthopnea, cough, chest pain, palpitations -Known HFrEF, last ECHO 01/2022 EF 51% -Started Cose (more content not included)...[facility]08-12-2024 NoteHNO ID: [id number] Author: IRASEMA LYLES MD Service: Psychiatry Author Type: Physician Type: Plan of Care Filed: 02/11/2024 16:49 Note Text: Was paged regarding psych evaluation for this patient. Per chart review and discussion with primary, pt has been endorsing beliefs about his symptoms arising from toxic dust. No other cognitive changes noted. OT notes he was able to do ADLs and return home. Per HANDP, patient's brother states this is his baseline. Psych consult idea was brought up by primary team to patient and he was not interested. It does sound like patient has a somatic delusion; however, there is no concern for his safety so, in signwriter's opinion, he should be given the opportunity to volitionally decline a psych consult if he is not interested (additionally, he would be unlikely to accept antipsychotic medication). If he becomes interested or a safety concern arises, please don't hesitate to page us back at [id number]-12-2024 NoteHNO ID: [id number] Author: PAU TSANG APRN.CNP Service: Hospital Medicine Author Type: Nurse Practitioner Type: Progress Notes Filed: 02/11/2024 18:51 Note Text: DEPARTMENT OF HOSPITAL MEDICINE PROGRESS NOTE SERVICE DATE: 02/11/2024 SERVICE TIME: 4:20 PM Hospital Medicine/Primary Attending: Rajesh Baumann MD NIGHT AND WEEKEND COVERAGE: [facility] COVERAGE: Days: 9500-1224, please page Pau Tsang for patient issues. Nights: [phone], please page Team GIM 2: G/H 8th floor: [address]; Non 8th floor [address] Subjective INTERVAL HPI: -Bradycardia overnight - appears to be 2nd degree type 1. Cardiology consulted. -Upon interview and assessment: pt reports having -toxic dust coming out of his skin from head to toe. -Reports he is brushing dirt off his body even after taking a shower. - Pt showed me a towel he used to wipe his skin and reports there is black dirt on the towel - The towel is clean white. - Reports feeling dirt coming out of the bumps on this forehead. - My assessment is he has healing abrasions I suspect from scratching this area. - Pt reports his skin is changing color from the toxic dust on it. -When confronted with my contradictory assessment of his descriptions pt is in disbelief and wants to see a specialists. - Reached out to psychiatry as I feel pt is having delusions of parasitosis. I advised patients of this, and he again is in disbelief and does not want to speak with psychiatry. Psychiatry advises to reach back out if pt changes his mind and/or delusions pose a safety concern - at this time the patient is not a risk to self or others. - I will consult dermatology for further reassurance to the patient. - Additionally, pt does have pitting edema to bilateral lower extremities L>R. Will continue lasix. Current Facility-Administered Medications Medication Dose Route Frequency NaCl 0.9% iv flush bag 20 mL INTRAVENOUS PRN acetaminophen 650 mg tab(s) (TYLENOL) 650 mg ORAL q 6 H PRN calcium carbonate 500 mg chewable tab(s) (TUMS) 500 mg ORAL DAILY lactobacillus rhamnosus 10 billion cell (CULTURELLE) capsule 1 capsule ORAL BID atorvastatin 10 mg tab(s) (LIPITOR) 10 mg ORAL AT BEDTIME folic acid 1 mg tab(s) 1 mg ORAL DAILY multivitamin-ferrous fumarate-folic acid 1 tablet (CENTRUM) 1 tablet ORAL DAILY temazepam 15 mg cap(s) (RESTORIL) 15 mg ORAL AT BEDTIME PARoxetine 30 mg tab(s) (PAXIL) 30 mg ORAL DAILY ascorbic acid (vitamin C) 500 mg tab(s) (VITAMIN C) 500 mg ORAL q 48 H potassium chloride 40 mEq oral powder (KLOR-CON) 40 mEq ORAL DAILY sodium chloride 0.9 % (flush) 2-10 mL (BD POSIFLUSH) 2-10 mL INTRAVENOUS DIRECTED PRN And perflutren lipid microspheres 1.1 mg/mL 1.3 mL injection (DEFINITY) 1.3 mL INTRAVENOUS DIRECTED PRN sodium hypochlorite 0.125 % (DAKIN'S QUARTER STRENGTH) IRRIGATION DAILY furosemide 40 mg tab(s) (LASIX) 40 mg ORAL DAILY ibrutinib 420 mg tab(s) (IMBRUVICA) 420 mg ORAL DAILY Objective PHYSICAL EXAM: BP 140/66 Pulse 64 Temp (Src) 97.7 (Oral) Resp 18 Ht 6' 4 (1.93m) Wt 250 lb (113.4kg) SpO2 100% BMI 30.44 kg/(m2). O2 Therapy: Room Air Physical Exam Performed GENERAL: Alert, cooperative SKIN: Skin color, texture, turgor normal. No rashes or lesions. HEAD/SINUSES: R scalp lesions. LUNGS: Lungs clear to auscultation, Good diaphragmatic excursion CARDIAC: Normal S1 and S2; no rubs, murmurs, or gallops ABDOMEN: Abdomen soft, non-tender,bowel sounds present EXTREMITIES: RLE 1+ edema, LLE 2+ edema. No ulcers NEURO: motor, cognition, and sensation grossly intact. Non-focal PULSES: 2+ radial, 2+ DP WOUND: Dressing intact Lines, Drains, and Airways None Reviewed lines and needs to be continued: REASONS: Difficulty in obtaining/maintaining access DATA: Diagnostic tests reviewed for today's visit: Most recent labs Most recent imaging Most recent EKG Assessment/Plan Problem List Edema of both lower legs (POA: Yes) Hidradenitis suppurativa (POA: Yes) Essential hypertension (POA: Yes) CLL (chronic lymphocytic leukemia) (HCC) (POA: Yes) HFrEF (heart failure with reduced ejection fraction) (HCC) (POA: Yes) Leukocytosis (POA: Yes) HLD (hyperlipidemia) (POA: Yes) Atrial fibrillation (HCC) (POA: Yes) Wound of right buttock (POA: Yes) Bradycardia (POA: Yes) HOSPITAL COURSE: Marycruz Vargas is a 64 year old male with PMH significant for: -CLL, on ibrutinib (follows with [employer] Install[employer] Dr. Mccabe in [place], [place]) -Afib (not on chronic ac) -HS, on Cosentyx injections -HFrEF -HLD -HTN -depression Who presented from SNF with concern for worsening b/l LE edema over the past month. No SOB, DALAL, orthopnea, cough, chest pain, palpitations. Known HFrEF, last ECHO 01/2022 EF 51%. Started Cosentyx for HS in 10/2023. In the ED he was HDS. Labs with mild hypokalemia, mild leukocytosis, CRP 2.6, ESR 16. NTproBNP nl. DVT US negative. CT A/P with stable soft tissue t (more content not included)...[facility]08-11-2024 NoteHNO ID: [id number] Author: ANABELA CARRASCO APRN.KIARA Service: Hospital Medicine Author Type: Nurse Practitioner Type: Progress Notes Filed: 02/10/2024 12:43 Note Text: DEPARTMENT OF HOSPITAL MEDICINE PROGRESS NOTE SERVICE DATE: 02/10/2024 SERVICE TIME: 12:22 PM Hospital Medicine/Primary Attending: Rajesh Baumann MD NIGHT AND WEEKEND COVERAGE: [facility] COVERAGE: Days: [phone], please page Anabela Carrasco for patient issues. Nights: [phone], please page Team GIM 2: G/H 8th floor: [address]; Non 8th floor [address] Subjective INTERVAL HPI: -awake, alert, resting in bed -reports b/l LE x1 month, L>R. No SOB, DALAL, orthopnea, cough, or chest pain -new to Cosentyx injections in October and do carry a risk of HF exacerbation -ARSEN wrap legs, continue PO lasix, ECHO ordered -pt concerned for toxins from HS. He reports oil/drainage on skin. No evidence of same on physical exam. -R gluteal wound is stable and scalp/facial lesions are sans drainage -pt has Derm f/u 02/14 Current Facility-Administered Medications Medication Dose Route Frequency iv contrast (radiology procedure) INTRAVENOUS DIRECTED PRN NaCl 0.9% iv flush bag 20 mL INTRAVENOUS PRN acetaminophen 650 mg tab(s) (TYLENOL) 650 mg ORAL q 6 H PRN calcium carbonate 500 mg chewable tab(s) (TUMS) 500 mg ORAL DAILY lactobacillus rhamnosus 10 billion cell (CULTURELLE) capsule 1 capsule ORAL BID atorvastatin 10 mg tab(s) (LIPITOR) 10 mg ORAL AT BEDTIME metoprolol tartrate (short acting) 25 mg tab(s) (LOPRESSOR) 25 mg ORAL BID folic acid 1 mg tab(s) 1 mg ORAL DAILY multivitamin-ferrous fumarate-folic acid 1 tablet (CENTRUM) 1 tablet ORAL DAILY temazepam 15 mg cap(s) (RESTORIL) 15 mg ORAL AT BEDTIME PARoxetine 30 mg tab(s) (PAXIL) 30 mg ORAL DAILY ascorbic acid (vitamin C) 500 mg tab(s) (VITAMIN C) 500 mg ORAL q 48 H potassium chloride 40 mEq oral powder (KLOR-CON) 40 mEq ORAL DAILY sodium chloride 0.9 % (flush) 2-10 mL (BD POSIFLUSH) 2-10 mL INTRAVENOUS DIRECTED PRN And perflutren lipid microspheres 1.1 mg/mL 1.3 mL injection (DEFINITY) 1.3 mL INTRAVENOUS DIRECTED PRN sodium hypochlorite 0.125 % (DAKIN'S QUARTER STRENGTH) IRRIGATION DAILY Objective PHYSICAL EXAM: BP 117/68 Pulse 54 Temp (Src) 97.3 (Oral) Resp 20 Wt 265 lb (120.2kg) SpO2 95% O2 Therapy: Room Air Physical Exam Performed GENERAL: Alert, no distress, cooperative SKIN: Skin color, texture, turgor normal. No rashes or lesions. HEAD/SINUSES: R scalp lesions. LUNGS: Lungs clear to auscultation, Good diaphragmatic excursion CARDIAC: Normal S1 and S2; no rubs, murmurs, or gallops ABDOMEN: Abdomen soft, non-tender,bowel sounds present EXTREMITIES: RLE 1+ edema, LLE 2+ edema. No ulcers NEURO: motor, cognition, and sensation grossly intact. Non-focal PULSES: 2+ radial, 2+ DP WOUND: R gluteal wound packed with Nugauze. Packing removed, minimal serosanguinous drainage, malodorous. Lines, Drains, and Airways Line Duration Peripheral 02/09/24 5192 [facility] Short Left Antecubital 18 Gauge <1 day Reviewed lines and needs to be continued: REASONS: Telemetry DATA: Diagnostic tests reviewed for today's visit: Most recent labs Most recent imaging Most recent EKG Assessment/Plan Problem List Edema of both lower legs (POA: Yes) Hidradenitis suppurativa (POA: Yes) Essential hypertension (POA: Yes) CLL (chronic lymphocytic leukemia) (HCC) (POA: Yes) HFrEF (heart failure with reduced ejection fraction) (HCC) (POA: Yes) Leukocytosis (POA: Yes) HLD (hyperlipidemia) (POA: Yes) Atrial fibrillation (HCC) (POA: Yes) AMS (altered mental status) (POA: Yes) Wound of right buttock (POA: Yes) HOSPITAL COURSE: Marycruz Vargas is a 64 year old male with PMH significant for: -CLL, on ibrutinib (follows with [employer] Install[facility] Dr. Mccabe in [place], [place]) -Afib (not on chronic ac) -HS, on Cosentyx injections -HFrEF -HLD -HTN -depression Who presented from SNF with concern for worsening b/l LE edema over the past month. No SOB, DALAL, orthopnea, cough, chest pain, palpitations. Known HFrEF, last ECHO 01/2022 EF 51%. Started Cosentyx for HS in 10/2023. In the ED he was HDS. Labs with mild hypokalemia, mild leukocytosis, CRP 2.6, ESR 16. NTproBNP nl. DVT US negative. CT A/P with stable soft tissue thickening over b/l gluteal region; chronic wound in the medial R gluteal region without fluid collection. He was admitted to Medicine. Principal Problem: #Edema of both lower legs #HFrEF (heart failure with reduced ejection fraction) ([facility]) -presented from SNF with worsening b/l LE edema over the past month -No SOB, DALAL, orthopnea, cough, chest pain, palpitations -Known HFrEF, last ECHO 01/2022 EF 51% -Started Cosentyx for HS in 10/2023 -NTproBNP nl -DVT US negative -CXR without e/o hypervolemia Plan: -ECHO ordered -lasix 40mg PO daily -ARSEN wrap b/l LE Active Problems: #Hidradenitis suppurativa #W (more content not included)...[facility]08-09-2024 Telephone encounter Note* Telephone Encounter - Zaida Smith RN - 02/08/2024 12:10 PM EDT Spoke with patient. States that the nurse is going to inject his Cosentyx today. 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 Naranjo next Sunday. Feels much better after discussion regarding Cosentyx and the benefits of this medication with his condition. Zaida Smith RN [facility]08-09-2024 Miscellaneous Notes* Telephone Encounter - Zaida Smith RN - 02/08/2024 12:10 PM EDT Spoke with patient. States that the nurse is going to inject his Cosentyx today. 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 Naranjo next Sunday. Feels much better after discussion regarding Cosentyx and the benefits of this medication with his condition. Zaida Smith RN * Telephone Encounter - Eben Castellon - 02/08/2024 11:41 AM EDT Patient calling wanting to speak with the nurse again. Patient may be reached @ [phone] (M) * Telephone Encounter - Zaida Smith, RN - 02/08/2024 9:35 AM EDT Spoke with patient. We have not seen patient at this facility yet- he is currently scheduled with Dr. Naranjo on 02/15/2024 for HS. Patient is currently in a prison. Has a history of Leukemia and HS (on Cosentyx- completed loading dose and is due today for the first of the maintenance). Was evaluated in the ER on 02/02/2024 and not admitted. He states that he has a disease and has wax and toxins coming out of my system. Head, legs, arms and fingertips are affected. He describes that due to the toxins on his face, it is hanging downward due to the weight. He is unable to sleep due to the itching. Continues to talk about toxins that are like dust coming out of his body. Reports 10-15 pounds of toxins is how much he has in his body. Reports edema to hips, legs and feet. In ER he was given Lasix for the edema. Patient feels that this is scary and disgusting and that he doesn't feel comfortable. Thinks he needs a machine to remove the toxins.Tastes it in his mouth. Can't stay clean- as soon sola showers he needs another one. We discussed the need to go to the ER for evaluation as we are unable to help him immediately as hecontinues to say he needs help now. Patient asked for me to admit him- explained that I'm unable todo this. Informed that he would have to be evaluated in the ER to be admitted if they think it is warranted. Patient called the nurse at the facility and had me talk with her on speaker. I briefly discussed that the patient would like to go to the ER and she told me that he was just there. Patient then saidhe needed to go today again. The nurse said that the doctor has to come around and write an order if ER is warranted. Patient asked that I call ahead and let them know that he was going to be arriving at the ER. Informed unable to do this as he didn't know which ER he was going to or if they would even approve him going. Plan is to wait for assessment from doctor in facility and see what happens after that. Patient agreeable to plan. Zaida Smith RN documented in [facility] encounter[facility] [place] Telephone encounter Note * Telephone Encounter - Eben Castellon - 02/08/2024 11:41 AM EDT Patient calling wanting to speak with the nurse again. Patient may be reached @ [phone] (M) [facility] [place]08-09-[facility]24 Telephone encounter Note* Telephone Encounter - Zaida Smith RN - 02/08/2024 9:35 AM EDT Spoke with patient. We have not seen patient at this facility yet- he is currently scheduled with Dr. Naranjo on 02/15/2024 for HS. Patient is currently in a prison. Has a history of Leukemia and HS (on Cosentyx- completed loading dose and is due today for the first of the maintenance). Was evaluated in the ER on 02/02/2024 and not admitted. He states that he has a disease and has wax and toxins coming out of my system. Head, legs, arms and fingertips are affected. He describes that due to the toxins on his face, it is hanging downward due to the weight. He is unable to sleep due to the itching. Continues to talk about toxins that are like dust coming out of his body. Reports 10-15 pounds of toxins is how much he has in his body. Reports edema to hips, legs and feet. In ER he was given Lasix for the edema. Patient feels that this is scary and disgusting and that he doesn't feel comfortable. Thinks he needs a machine to remove the toxins.Tastes it in his mouth. Can't stay clean- as soon sola showers he needs another one. We discussed the need to go to the ER for evaluation as we are unable to help him immediately as hecontinues to say he needs help now. Patient asked for me to admit him- explained that I'm unable todo this. Informed that he would have to be evaluated in the ER to be admitted if they think it is warranted. Patient called the nurse at the facility and had me talk with her on speaker. I briefly discussed that the patient would like to go to the ER and she told me that he was just there. Patient then saidhe needed to go today again. The nurse said that the doctor has to come around and write an order if ER is warranted. Patient asked that I call ahead and let them know that he was going to be arriving at the ER. Informed unable to do this as he didn't know which ER he was going to or if they would even approve him going. Plan is to wait for assessment from doctor in facility and see what happens after that. Patient agreeable to plan. Zaida Smith RN [facility] [place]07-31-2024 History of Present illness Narrative* Tenisha Worthington - 01/30/2024 12:14 PM EDT [facility] Ref[facility] Assessment Medication(s): Cosentyx Patient's current medication list and adherence status to current therapy were reviewed by Specialty Pharmacy clinical pharmacist to identify any new drug interactions or non-compliance to therapy. Therapy continues to be appropriate for disease, patient response, and medical condition. Verification of therapeutic benefit and effectiveness with current therapy was completed. Adverse events, barriers in adherence, and side effects were assessed and addressed if applicable. Will proceed with refill with no changes in therapy - patient progressing towards achieving therapeutic goals based on medication- specific laboratory parameters, disease state markers and outcomes. Board Certified Arts Therapist Assessment Patient confirmed: Yes Med/dose confirmed: Yes Supplies needed: No supplies needed Missed doses: No Estimated days supply on hand: 0 Next cycle/dose due: 02/08/24 Copay amount: 0 Payment confirmed: Yes Delivery method: FedEx Signature required: No Delivery address: [address] [place] [id number] Delivery date: 02/07/24 Questions or concerns for the pharmacist?: No Did you have any side effects believed to be related to this medication, that resulted in hospitalization?: No Current Outpatient Medications on File Prior to Visit Medication Sig secukinumab (COSENTYX PEN, 2 PENS,) 150 mg/mL Inject 300mg (2 pens) subcutaneously at weeks 0,1,2,3and 4, then 300mg (2 pens) every 4 weeks thereafter secukinumab (COSENTYX PEN, 2 PENS,) 150 mg/mL Inject 300mg (2 pens) every 4 weeks molnupiravir 200 mg capsule Clindamycin Phosphate (CLEOCIN T) 1 % lotion Apply to affected areas twice daily ascorbic acid, vitamin C, (VITAMIN C) 500 mg tablet Take 500 mg by mouth every other day. atorvastatin (LIPITOR) 10 mg tablet Take 10 mg by mouth daily at bedtime. cephALEXin (KEFLEX) 500 mg capsule Take 500 mg by mouth two times a day. VITAMIN D2 1,250 mcg (50,000 unit) capsule Take 50,000 Units by mouth every Sunday. metoprolol tartrate, short acting, (LOPRESSOR) 25 mg tablet Take 25 mg by mouth two times a day. minocycline (MINOCIN, DYNACIN) 100 mg capsule Take 100 mg by mouth two times a day. temazepam (RESTORIL) 15 mg Take 15 mg by mouth daily at bedtime. acetaminophen (TYLENOL) 325 mg tablet Take 650 mg by mouth every 6 hours as needed for pain. lactobacillus rhamnosus (CULTURELLE) 10 billion cell capsule Take 1 capsule by mouth two times a day. ibrutinib (IMBRUVICA) 420 mg tablet Take 1 tablet by mouth once daily. ketoconazole (NIZORAL) 2 % shampoo Apply to affected area once daily as needed (dry skin). loperamide (IMODIUM) 2 mg cap(s) Take 2 mg by mouth four times a day as needed for diarrhea. therapeutic multivitamin-minerals (THERA-M PLUS) 9 mg iron-400 mcg tablet Take 1 tablet by mouth once daily. ondansetron (ZOFRAN) 4 mg tablet Take 4 mg by mouth every 4 hours as needed for nausea/vomiting. calcium carbonate (TUMS) 500 mg chew Take 500 mg by mouth once daily. PARoxetine (PAXIL) 10 mg tablet Take 30 mg by mouth once daily. folic acid 1 mg tablet Take 1 mg by mouth once daily. No current facility-administered medications on file prior to visit. [facility] [place] CLINICAL ASSESSMENT - INFLAMMATORY CONDITIONS V6: Assessment to use: Refill Date of influenza vaccination reminder: 11/07/2023 Date of most recent vaccination assessment: 11/07/2023 Treatment Plan Information: Cosentyx 150mg/mL pens Inject 300mg (2 pens) subcutaneously at weeks 0,1,2,3 and 4, then 300mg (2 pens) every 4 weeks thereafter (L73.2) Hidradenitis suppurativa Past treatments: Humira Est. Tx Plan Start Date: 11/08/2023 Estimated Start Date Info: No information available Est. Estimated Treatment Duration: Until loss of efficacy and/or no longer tolerated. Tenisha Worthington CPhT [facility], Inflammatory P: [phone] F: [phone] documented in this encounterSelect [facility] [place]24 NoteHNO ID: [id number] Author: TAYLOR MONTILLA [facility]ly [facility] Service: ? Author Type: ? Type: Progress Notes Filed: 02/05/2024 17:48 Note Text: [facility] Assessment Medication(s): Cosentyx Patient's current medication list and adherence status to current therapy were reviewed by Specialty Pharmacy clinical pharmacist to identify any new drug interactions or non-compliance to therapy. Therapy continues to be appropriate for disease, patient response, and medical condition. Verification of therapeutic benefit and effectiveness with current therapy was completed. Adverse events, barriers in adherence, and side effects were assessed and addressed if applicable. Will proceed with refill with no changes in therapy - patient progressing towards achieving therapeutic goals based on medication-specific laboratory parameters, disease state markers and outcomes. Signature requirement added per patient request. Esther Montilla PharmD Clinical Pharmacist, [employer] [facility] [place] [facility] ; Pool: P [facility] Pool #: [id number] Board Certified Arts Therapist Assessment Patient confirmed: Yes Med/dose confirmed: Yes Supplies needed: No supplies needed Missed doses: No Estimated days supply on hand: 0 Next cycle/dose due: 02/08/24 Copay amount: 0 Payment confirmed: Yes Delivery method: FedEx Signature required: No Delivery address: [address] [facility] [address] Delivery date: 02/07/24 Questions or concerns for the pharmacist?: No Did you have any side effects believed to be related to this medication, that resulted in hospitalization?: No Current Outpatient Medications on File Prior to Visit Medication Sig secukinumab (COSENTYX PEN, 2 PENS,) 150 mg/mL Inject 300mg (2 pens) subcutaneously at weeks 0,1,2,3 and 4, then 300mg (2 pens) every 4 weeks thereafter secukinumab (COSENTYX PEN, 2 PENS,) 150 mg/mL Inject 300mg (2 pens) every 4 weeks molnupiravir 200 mg capsule Clindamycin Phosphate (CLEOCIN T) 1 % lotion Apply to affected areas twice daily ascorbic acid, vitamin C, (VITAMIN C) 500 mg tablet Take 500 mg by mouth every other day. atorvastatin (LIPITOR) 10 mg tablet Take 10 mg by mouth daily at bedtime. cephALEXin (KEFLEX) 500 mg capsule Take 500 mg by mouth two times a day. VITAMIN D2 1,250 mcg (50,000 unit) capsule Take 50,000 Units by mouth every Sunday. metoprolol tartrate, short acting, (LOPRESSOR) 25 mg tablet Take 25 mg by mouth two times a day. minocycline (MINOCIN, DYNACIN) 100 mg capsule Take 100 mg by mouth two times a day. temazepam (RESTORIL) 15 mg Take 15 mg by mouth daily at bedtime. acetaminophen (TYLENOL) 325 mg tablet Take 650 mg by mouth every 6 hours as needed for pain. lactobacillus rhamnosus (CULTURELLE) 10 billion cell capsule Take 1 capsule by mouth two times a day. ibrutinib (IMBRUVICA) 420 mg tablet Take 1 tablet by mouth once daily. ketoconazole (NIZORAL) 2 % shampoo Apply to affected area once daily as needed (dry skin). loperamide (IMODIUM) 2 mg cap(s) Take 2 mg by mouth four times a day as needed for diarrhea. therapeutic multivitamin-minerals (THERA-M PLUS) 9 mg iron-400 mcg tablet Take 1 tablet by mouth once daily. ondansetron (ZOFRAN) 4 mg tablet Take 4 mg by mouth every 4 hours as needed for nausea/vomiting. calcium carbonate (TUMS) 500 mg chew Take 500 mg by mouth once daily. PARoxetine (PAXIL) 10 mg tablet Take 30 mg by mouth once daily. folic acid 1 mg tablet Take 1 mg by mouth once daily. No current facility-administered medications on file prior to visit. [facility] [place] CLINICAL ASSESSMENT - INFLAMMATORY CONDITIONS V6: Ivent complete: No Assessment to use: Refill Assessment of injection issues: Yes Infection screening, including annual TB assessment when applicable to medication: Yes Current medication list (including drug interaction assessment): Yes Experience of adverse reactions to the medication: Yes Date of influenza vaccination reminder: 11/07/2023 Date of most recent vaccination assessment: 11/07/2023 Treatment Plan Information: Cosentyx 150mg/mL pens Inject 300mg (2 pens) subcutaneously at weeks 0,1,2,3 and 4, then 300mg (2 pens) every 4 weeks thereafter (L73.2) Hidradenitis suppurativa Past treatments: Humira Est. Tx Plan Start Date: 11/08/2023 Estimated Start Date Info: No information available Est. Estimated Treatment Duration: Until loss of efficacy and/or no longer tolerated. Tenisha Worthington CPhT [facility], Infl[facility] P: [phone] F: [phone]-27-[facility]24 NoteHNO ID: [id number] Author: TAYLOR MONTILLA [facility] Service: ? Author Type: ? Type: Progress Notes Filed: 01/09/2024 08:08 Note Text: [facility] Assessment Medication(s): Cosentyx Patient's current medication list and adherence status to current therapy were reviewed by Specialty Pharmacy clinical pharmacist to identify any new drug interactions or non-compliance to therapy. Therapy continues to be appropriate for disease, patient response, and medical condition. Verification of therapeutic benefit and effectiveness with current therapy was completed. Adverse events, barriers in adherence, and side effects were assessed and addressed if applicable. Will proceed with refill with no changes in therapy - patient progressing towards achieving therapeutic goals based on medication-specific laboratory parameters, disease state markers and outcomes. Esther Montilla PharmD Clinical Pharmacist, [employer] [facility] [place] ; Pool: P [facility] Pool #: [id number] Board Certified Arts Therapist Assessment Patient confirmed: Yes Med/dose confirmed: Yes Supplies needed: No supplies needed Missed doses: No Estimated days supply on hand: 0 Next cycle/dose due: 01/11/24 Copay amount: 0 Payment confirmed: Yes Delivery method: FedEx Signature required: No Delivery address: [address] *[facility]* [facility] [address] Delivery date: 01/18/24 Did you have any side effects believed to be related to this medication, that resulted in hospitalization?: No Current Outpatient Medications on File Prior to Visit Medication Sig secukinumab (COSENTYX PEN, 2 PENS,) 150 mg/mL Inject 300mg (2 pens) subcutaneously at weeks 0,1,2,3 and 4, then 300mg (2 pens) every 4 weeks thereafter secukinumab (COSENTYX PEN, 2 PENS,) 150 mg/mL Inject 300mg (2 pens) every 4 weeks molnupiravir 200 mg capsule Clindamycin Phosphate (CLEOCIN T) 1 % lotion Apply to affected areas twice daily ascorbic acid, vitamin C, (VITAMIN C) 500 mg tablet Take 500 mg by mouth every other day. atorvastatin (LIPITOR) 10 mg tablet Take 10 mg by mouth daily at bedtime. cephALEXin (KEFLEX) 500 mg capsule Take 500 mg by mouth two times a day. VITAMIN D2 1,250 mcg (50,000 unit) capsule Take 50,000 Units by mouth every Sunday. metoprolol tartrate, short acting, (LOPRESSOR) 25 mg tablet Take 25 mg by mouth two times a day. minocycline (MINOCIN, DYNACIN) 100 mg capsule Take 100 mg by mouth two times a day. temazepam (RESTORIL) 15 mg Take 15 mg by mouth daily at bedtime. acetaminophen (TYLENOL) 325 mg tablet Take 650 mg by mouth every 6 hours as needed for pain. lactobacillus rhamnosus (CULTURELLE) 10 billion cell capsule Take 1 capsule by mouth two times a day. ibrutinib (IMBRUVICA) 420 mg tablet Take 1 tablet by mouth once daily. ketoconazole (NIZORAL) 2 % shampoo Apply to affected area once daily as needed (dry skin). loperamide (IMODIUM) 2 mg cap(s) Take 2 mg by mouth four times a day as needed for diarrhea. therapeutic multivitamin-minerals (THERA-M PLUS) 9 mg iron-400 mcg tablet Take 1 tablet by mouth once daily. ondansetron (ZOFRAN) 4 mg tablet Take 4 mg by mouth every 4 hours as needed for nausea/vomiting. calcium carbonate (TUMS) 500 mg chew Take 500 mg by mouth once daily. PARoxetine (PAXIL) 10 mg tablet Take 30 mg by mouth once daily. folic acid 1 mg tablet Take 1 mg by mouth once daily. No current facility-administered medications on file prior to visit. [facility] [place] [facility] Visit Assessment - Inflammatory Conditions: Ivent complete: No Assessment to use: Refill Vaccination Assessment: Date of influenza vaccination reminder: 11/07/2023 Date of most recent vaccination assessment: 11/07/2023 Treatment Plan Information: Treatment Plan Information: Cosentyx 150mg/mL pens Inject 300mg (2 pens) subcutaneously at weeks 0,1,2,3 and 4, then 300mg (2 pens) every 4 weeks thereafter (L73.2) Hidradenitis suppurativa Past treatments: Humira Est. Tx Plan Start Date: 11/08/2023 Estimated Treatment Duration: Until loss of efficacy and/or no longer tolerated. Refill Assessment: Concurrent med therapy and DMARD screening: Yes Assessment of injection issues: Yes Screening for infection: Yes Adverse reactions and mitigation: Yes COPD monitoring ([place]): N/A Assessment of efficacy: Yes Tenisha Worthington CPhT [facility], Infl[facility] P: [phone] F: [phone]05-29-2024 History of Present illness Narrative* Tenisha Worthington - 11/28/2023 10:15 AM EDT [facility] Medication(s): Cosentyx Patient's current medication list and adherence status to current therapy were reviewed by Specialty Pharmacy clinical pharmacist to identify any new drug interactions or non-compliance to therapy. Therapy continues to be appropriate for disease, patient response, and medical condition. Verification of therapeutic benefit and effectiveness with current therapy was completed. Adverse events, barriers in adherence, and side effects were assessed and addressed if applicable. Will proceed with refill with no changes in therapy - patient progressing towards achieving therapeutic goals based on medication- specific laboratory parameters, disease state markers and outcomes. Board Certified Arts Therapist Assessment Patient confirmed: Yes Med/dose confirmed: Yes Supplies needed: No supplies needed Missed doses: No Estimated days supply on hand: 1 Next cycle/dose due: 11/30/23 Copay amount: 0 Payment confirmed: Yes Delivery method: FedEx Signature required: Waived on patient request Delivery address: [address] [facility] [address] Delivery date: 12/05/23 Questions or concerns for the pharmacist?: No Current Outpatient Medications on File Prior to Visit Medication Sig secukinumab (COSENTYX PEN, 2 PENS,) 150 mg/mL Inject 300mg (2 pens) subcutaneously at weeks 0,1,2,3and 4, then 300mg (2 pens) every 4 weeks thereafter secukinumab (COSENTYX PEN, 2 PENS,) 150 mg/mL Inject 300mg (2 pens) every 4 weeks molnupiravir 200 mg capsule Clindamycin Phosphate (CLEOCIN T) 1 % lotion Apply to affected areas twice daily ascorbic acid, vitamin C, (VITAMIN C) 500 mg tablet Take 500 mg by mouth every other day. atorvastatin (LIPITOR) 10 mg tablet Take 10 mg by mouth daily at bedtime. cephALEXin (KEFLEX) 500 mg capsule Take 500 mg by mouth two times a day. VITAMIN D2 1,250 mcg (50,000 unit) capsule Take 50,000 Units by mouth every Sunday. metoprolol tartrate, short acting, (LOPRESSOR) 25 mg tablet Take 25 mg by mouth two times a day. minocycline (MINOCIN, DYNACIN) 100 mg capsule Take 100 mg by mouth two times a day. temazepam (RESTORIL) 15 mg Take 15 mg by mouth daily at bedtime. acetaminophen (TYLENOL) 325 mg tablet Take 650 mg by mouth every 6 hours as needed for pain. lactobacillus rhamnosus (CULTURELLE) 10 billion cell capsule Take 1 capsule by mouth two times a day. ibrutinib (IMBRUVICA) 420 mg tablet Take 1 tablet by mouth once daily. ketoconazole (NIZORAL) 2 % shampoo Apply to affected area once daily as needed (dry skin). loperamide (IMODIUM) 2 mg cap(s) Take 2 mg by mouth four times a day as needed for diarrhea. therapeutic multivitamin-minerals (THERA-M PLUS) 9 mg iron-400 mcg tablet Take 1 tablet by mouth once daily. ondansetron (ZOFRAN) 4 mg tablet Take 4 mg by mouth every 4 hours as needed for nausea/vomiting. calcium carbonate (TUMS) 500 mg chew Take 500 mg by mouth once daily. PARoxetine (PAXIL) 10 mg tablet Take 30 mg by mouth once daily. folic acid 1 mg tablet Take 1 mg by mouth once daily. No current facility-administered medications on file prior to visit. [facility] Visit Assessment - Inflammatory Conditions: Assessment to use: Refill Vaccination Assessment: Date of influenza vaccination reminder: 11/07/2023 Date of most recent vaccination assessment: 11/07/2023 Treatment Plan Information: Treatment Plan Information: Cosentyx 150mg/mL pens Inject 300mg (2 pens) subcutaneously at weeks 0,1,2,3 and 4, then 300mg (2 pens) every 4 weeks thereafter (L73.2) Hidradenitis suppurativa Past treatments: Humira Est. Tx Plan Start Date: 11/08/2023 Estimated Treatment Duration: Until loss of efficacy and/or no longer tolerated. Tenisha Worthington CPhT [facility] Specialty Pharmacy, Inflammatory P: [phone] F: [phone] documented in this encounterSelect Medical [facility] [place] Telephone encounter Note * Telephone Encounter - Astrid Mckenzie - 11/07/2023 9:17 AM EDT Patient called to inquire on status of Cosentyx prescription. Called [facility] and spoke to Jackie and was informed that a PA was submitted on 11/05. Informed patient that a PA had been submitted and that it could take up to 72hrs. [facility] [place]05-08-2024 Miscellaneous Notes* Telephone Encounter - Astrid Mckenzie - 11/07/2023 9:17 AM EDT Patient called to inquire on status of Cosentyx prescription. Called [facility] and spoke to Jackie and was informed that a PA was submitted on 11/05. Informed patient that a PA had been submitted and that it could take up to 72hrs. documented in this encounterSelect Medical [facility] [place]-2024 History of Present illness Narrative* Jacob (Sleep Technologist)Radha - 11/02/2023 12:28 PM EDT [facility] received prescription(s) for Cosentyx from Dr. Wilson's office. Benefits investigation was conducted, indicating that a prior authorization is required by patient's insurance plan with [facility] Medicare. Encounter will be updated once prior authorization has been submitted by [facility]. Radha James [facility] [phone] documented in this encounterSelect Medical [facility] [place]-22-2024 Telephone encounter Note * Telephone Encounter - Marlon Valencia - 10/22/2023 2:41 PM EDT Called and updated caregiver on need for TB and hep test [facility]04-22-2024 Miscellaneous Notes* Telephone Encounter - Marlon Valencia - 10/22/2023 2:41 PM EDT Called and updated caregiver on need for TB and hep test * Telephone Encounter - Marlon Valencia - 10/22/2023 12:11 PM EDT Received call from patient requesting status of injection medicaiton (cosentyx?) Would appreciate acall back to caregiver-Elisa ([phone]) with status update [facility] [place] Telephone encounter Note * Telephone Encounter - Marlon Valencia - 10/22/2023 12:11 PM EDT Received call from patient requesting status of injection medicaiton (cosentyx?) Would appreciate acall back to caregiver-Elisa ([phone]) with status update [facility] [place]-20-2024 Miscellaneous Notes* Telephone Encounter - Jeremy Campos - 09/19/2023 11:23 AM EDT Faxed lab slip to [phone] Lab slip scanned into the chart. documented in this encounter[facility] [place] Miscellaneous Notes* Telephone Encounter - Armida Nguyen RN - 09/18/2023 4:33 PM EDT Nurse called from patient's facility for lab order. Well send outside lab slip sent to Caleb through fax. Armida Nguyen RN documented in this encounter[facility] [place]-2023 Instructions* Patient Instructions* Elaine Paredes RN - 10/12/2022 11:28 AM EDT Patient has positive antibodies and will require type/cross order and drawn 1 day prior to all future blood transfusions. T/C will need to be drawn at [facility] if transfusion is to be done here. documented in this encounter[facility] [place] History of Present illness Narrative* Tracy Xiong RN - 10/12/2022 8:30 AM EDT Manager Digital Chart Processing Date: 2022 Laboratory: Draw labs: Yes T&S Consents: Consent form needs signed by patient. Please have scanned in Epic once signed. Special Instructions: Order entered in smart [employer]. Tracy Xiong RN documented in this encounter[facility] [place]23 History of Present illness Narrative* Roslyn Mota RN - 10/10/2022 2:17 PM EDT Patient aware of blood transfusion not being given today due to additional new antibody noted and additional labs need to be drawn to send to [place].Teaching had to be reinforced several times. Patient verbalizes understanding eventually. Roslyn Mota RN * Gema Wall RN - 10/10/2022 8:45 AM EDT documented in this encounter[facility] [place]-2023 History of Present illness Narrative* Tracy Xiong RN - 07/07/2022 2:53 PM EST Unable to transfuse ordered unit of PRBC today due to + antibody screen. Per Blood Bank a compatible unit will not be available today during clinic hours. Patient returned to [facility]. Unit nurse at [facility] notified of above patient rescheduled for transfusion Monday 07/10 at 0830 am. [facility] to arrange transportation. * Tracy Xiong RN - 07/07/2022 8:00 AM EST Manager Digital Chart Processing Date: 2022 Laboratory: Draw labs: Yes T&C Chemotherapy Orders: Orders reviewed. Dosage and calculations checked Consents: Chemo consent in EPIC scanned docs Order in scanned docs. Smart set entered Tracy Xiong RN documented in this [facility]12-22-2022 History of Present illness Narrative* Tracy Xiong RN - 06/22/2022 8:30 AM EST Manager Digital Chart Processing Date: 2021 Laboratory: Draw labs: Yes Consents: Transfusion consent in EPIC Special Instructions: Transfusion order and Consent in scanned docs Tracy Xiong RN documented in this [facility]11-22-2022 History of Present illness Narrative* Tracy Gamez RN - 05/23/2022 8:57 AM EST PRIMARY CARE COORDINATION QUICK NOTE Provider Action/FYI Patient is in [facility] documented in this [facility]11-14-2022 History of Present illness Narrative* Temitope Heart RN - 05/15/2022 8:27 AM EST PRIMARY CARE COORDINATION QUICK NOTE Provider Action/FYI Call made to [facility]. Pt is still admitted there. No further information. Temitope Heart RN documented in this [facility]11-07-2022 History of Present illness Narrative* Temitope Heart RN - 05/08/2022 3:26 PM EST PRIMARY CARE COORDINATION QUICK NOTE Provider Action/FYI Call made to [facility]. Pt is still admitted. I let a message for social work coordinator to call back about possible discharge date. No return call. Will follow up next week. Temitope Heart RN documented in this [facility]11-03-2022 Miscellaneous Notes* Telephone Encounter - Jacqueline Roy - 05/04/2022 1:38 PM EDT I called and spoke to the nurse malt liquors sales supervisor on the 1st floor at [facility]. His appt has been rescheduled. Jacqueline Roy * Telephone Encounter - Milagros Ramirez - 05/01/2022 2:15 PM EDT Pt was brought in for appt by [facility] for appt w/Dr. Tovar. Message was left on pt's phone number, however, pt is now at [facility]. Pt's phone and address updated. Please call [facility] to reschedule appt. documented in this encounter[facility] [place]-27-2022 Miscellaneous Notes* Telephone Encounter - Jacqueline Roy - 04/27/2022 9:28 AM EDT 04/27/22 I called and left a voicemail that his appt scheduled 05/01/[address] Tovar has been cancelled. I asked for him to call back and reschedule. Jacqueline Roy documented in this encounterSelect [facility] [place]-26-2022 History of Present illness Narrative* Temitope Heart RN - 04/26/2022 8:04 AM EDT PRIMARY CARE COORDINATION CHART REVIEW Provider Action/FYI Patient identified for Care Coordination from: Hospital discharge list LAST PCP office visit: Visit date not found NEXT OV: Visit date not found CHRONIC DX: HTN CHF Hyperlipidemia CLL CHRONIC DISEASE CARE GAPS: None CARE GAPS TO BE ADDRESSED: Annual Wellness visit Colorectal screening UTILIZATION WITHIN THE LAST 12 MONTHS: Multiple hospitalizations DOES THIS PATIENT HAVE AN ADVANCE DIRECTIVE? Unknown LABS, HM and IMMUNIZATION: Multiple immunizations FUTURE APPOINTMENTS: Visit date not found INTERVENTION: Pt was admitted to [facility]. I will follow up with pt when he is discharged. documented in this encounterSelect [facility] [place]-20-2022 Miscellaneous Notes* Telephone Encounter - Sue Sanchez MD - 04/20/2022 7:16 AM EDT Please call HH nurse and let them know that patient has been hospitalized; he was in the ED last night. He may or may not get discharged by tomorrow. Would Edith be able to coordinate with case workers/social workers in the hospital regarding his disposition/discharge planning? * Telephone Encounter - Samaria Dumas LPN - 04/20/2022 6:57 AM EDT Edith from [facility] on 04/09/22 stating they will be opening a case for pt's home health care upon his discharge from [facility] w/their first visit planned for 04/21/22. Per Edith,pt has pretty extensive wound care needs and will need alf visit. Edith called to get this verbal order to initiate this care to ensure that pt does not have a lauren in his care. I have not yet returned Edith's call. Pt has never been seen by our physicians previously and is scheduled to establish care in our office w/Dr. Sanchez on 04/21/22. Dr. Sanchez, I planned to return Edith's call this morning to advise her that you've not yet seen this patient. Would you like me to provide Edith with these verbal orders (you are listed on the discharge as PCP) or would you prefer we wait to provide verbal orders until you are able to evaluate thept? Please advise Samaria Dumas LPN April 20, 2022 7:05 AM documented in this encounterSelect [facility] [place]-27-2022 History of Present illness Narrative* Loren Alexander MA - 03/28/2022 2:56 PM EDT POPULATION HEALTH NAVIGATION OUTREACH Action/FYI Need to onboard / verify pcp Left message to call office. 03/28/2022 2:59 PM Pt identified by name and : NO Outreach Outcome/Action Unable to reach patient: Left message Did you use a PCP flex slot to schedule this appointment? N/A Reason for Outreach Care Gap or Scheduling/Wellness visits Payer: Payor: [employer] / Plan: [employer] HMO / Product Type: HMO / Care Gap Reviewed:: Annual Wellness visit Reminder: Reminder note to check Health Maintenance for items below Health Maintenance items due: COVID-19 VACCINE(1) Never done PNEUMOCOCCAL(1 - PCV) Never done BP CONTROLLED (<130/80) Never done SHINGRIX VACCINE(1 of 2) Never done COLORECTAL CANCER SCREENING Never done ANNUAL PCP TEAM CHRONIC DISEASE VISIT due on 07/18/2019 Message Sent to Practice: No Navigation Signature: Loren Alexander MA March 28, 2022 2:56 PM documented in this encounterSelect [facility] [place]-20[facility] History of Past illness Narrative* Problem Noted Date Resolved Date Sacral wound, sequela 03/17/2022 03/27/2022 Chest pain 01/23/2022 02/16/2022 Leukocytosis 01/23/2022 02/16/2022 Decompensated heart failure 01/23/202201/30 documented as of this encounter (statuses as of 03/28/2022) [facility] [place] History of Past illness Narrative* Problem Noted Date Resolved Date Sacral wound, sequela 03/17/2022 03/27/2022 Chest pain 01/23/2022 02/16/2022 Leukocytosis 01/23/2022 02/16/2022 Decompensated heart failure 01/23/2022 0801/2022 documented as of this encounter (statuses as of 03/29/2022) [facility] [place]-2022 Miscellaneous Notes* Telephone Encounter - Nydia Loredo LPN - 03/01/2022 3:[address] [facility] called states pt has hospital follow up appointment scheduled 05/01/2022. Doctor at [facility] requesting pt's appointment be moved up. Advised will need to check with Dr. Tovar and he is out of office this week. Did notice in progress note that it was mentioned pt will need periodic echocardiograms for pericardial effusion evaluation. documented in this encounterSelect [facility] [place]-21-2022 Miscellaneous Notes* Telephone Encounter - Marlon Michaud MD - 02/19/2022 7:14 PM EDT Has not seen me in over 3 years. Is therefore no longer an established patient of [facility]. Please re,move me as PCP. documented in this encounterSelect [facility] [place] History of Past illness Narrative* Problem Noted Date Resolved Date Chest pain 01/23/2022 02/16/2022 Leukocytosis 01/23/2022 02/16/2022 Decompensated heart failure 01/23/202201/30 documented as of this encounter (statuses as of 02/20/2022) [facility] [place] History of Past illness Narrative* Problem Noted Date Resolved Date Chest pain 01/23/2022 02/16/2022 Leukocytosis 01/23/2022 02/16/2022 Decompensated heart failure 01/23/202201/30 documented as of this encounter (statuses as of 03/08/2022) [facility] [place] History of Past illness Narrative* Problem Noted Date Resolved Date Chest pain 01/23/2022 02/16/2022 Decompensated heart failure 01/23/202201/30 documented as of this encounter (statuses as of 04/20/2022) [facility] [place] History of Past illness Narrative* Problem Noted Date Resolved Date Chest pain 01/23/2022 02/16/2022 Decompensated heart failure 01/23/202201/30 documented as of this encounter (statuses as of 04/26/2022) [facility] [place] History of Past illness Narrative* Problem Noted Date Resolved Date Chest pain 01/23/2022 02/16/2022 Decompensated heart failure 01/23/202201/30 documented as of this encounter (statuses as of 04/27/2022) [facility] [place] History of Past illness Narrative* Problem Noted Date Resolved Date Chest pain 01/23/2022 02/16/2022 Decompensated heart failure 01/23/202201/30 documented as of this encounter (statuses as of 05/04/2022) [facility] [place] History of Past illness Narrative* Problem Noted Date Resolved Date Chest pain 01/23/2022 02/16/2022 Decompensated heart failure 01/23/202201/30 documented as of this encounter (statuses as of 05/08/2022) [facility] [place] History of Past illness Narrative* Problem Noted Date Resolved Date Chest pain 01/23/2022 02/16/2022 Decompensated heart failure 01/23/202201/30 documented as of this encounter (statuses as of 05/15/2022) [facility] [place] History of Past illness Narrative* Problem Noted Date Resolved Date Chest pain 01/23/2022 02/16/2022 Decompensated heart failure 01/23/202201/30 documented as of this encounter (statuses as of 05/23/2022) [facility] [place] History of Past illness Narrative* Problem Noted Date Resolved Date Chest pain 01/23/2022 02/16/2022 Decompensated heart failure 01/23/202201/30 documented as of this encounter (statuses as of 06/23/2022) [facility] [place] History of Past illness Narrative* Problem Noted Date Resolved Date Chest pain 01/23/2022 02/16/2022 Decompensated heart failure 01/23/202201/30 documented as of this encounter (statuses as of 07/08/2022) [address]25-2022 History of Past illness Narrative* Problem Noted Date Resolved Date Chest pain 01/23/2022 02/16/2022 Decompensated heart failure 01/23/202201/30 documented as of this encounter (statuses as of 07/10/2022) [address]25-2022 History of Past illness Narrative* Problem Noted Date Resolved Date Chest pain 01/23/2022 02/16/2022 Decompensated heart failure 01/23/202201/30 documented as of this encounter (statuses as of 10/05/2022) [facility] [place] History of Past illness Narrative* Problem Noted Date Resolved Date Chest pain 01/23/2022 02/16/2022 Decompensated heart failure 01/23/202201/30 documented as of this encounter (statuses as of 10/11/2022) [facility] [place] History of Past illness Narrative* Problem Noted Date Resolved Date Chest pain 01/23/2022 02/16/2022 Decompensated heart failure 01/23/202201/30 documented as of this encounter (statuses as of 10/13/2022) [facility] [place] History of Past illness Narrative* Problem Noted Date Diagnosed Date Resolved Date Chest pain 01/23/2022 02/16/2022 Decompensated heart failure 01/23/2022 02/16/2022 documented as of this encounter (statuses as of 09/19/2023) [facility] [place] Miscellaneous Notes* Telephone Encounter - Jacqueline Roy - 12/29/2021 11:20 AM EDT I called Adrian at [phone] And spoke to Mia. She was informed of the appt 05/01/22 @ 1:45for Marycruz. Jacqueline Roy * Telephone Encounter - Nydia Loredo LPN - 12/29/2021 10:50 AM EDT Attempted to call Adrian to advise of Marycruz Vargas's appointment. Was transferred to skilled unit and no one answered. Jacqueline: Please contact Adrian with this appointment in case the appointment needs rescheduled youcan handle it. Thank you. * Telephone Encounter - Jacqueline Roy - 12/29/2021 10:05 AM EDT Nydia: Marycruz has [employer]. His wrong insurance information was entered. I have fixed it. His appt iscurrently scheduled for 05/01/22 @ 1:45. Please Notify the patient of the appt date and time. Thankyou. Jacqueline Roy * Telephone Encounter - Nydia Loredo LPN - 12/23/2021 3:21 PM EDTSummary: Closed in error I meant to sent this to Jacqueline to schedule per previous entry. Please call [facility] and schedule ptas I am unable to. Thank you. * Telephone Encounter - Nydia Loredo LPN - 12/23/2021 3:18 PM EDT Images from the original note were not included. (very important) You completed this message on 12/22/2021. The information that appears might not beup to date. (important suggestion) You completed this message for Jacqueline Roy. Mere Appointment You routed conversation to Jacqueline Roy Yesterday (11:46 AM) You Jacqueline Roy Yesterday (8:47 AM) HS Pt needs scheduled for hospital follow up and I am unable to do it. Thank you. Routing comment You 2 days ago HS Summary: hosp. follow up Spoke with Tracy at [facility] and pt needs a hospital follow up appointment scheduled. Attempted toschedule while I had her on the phone but was unable to schedule due to a registration issue. Advised will return call once we have appointment made. Tracy stated that pt will be leaving their facility to move closer to family and they are trying to get appointment set up for pt. Attempted to schedule hospital followup but this message would not let me go any further: [employer] is a coverage that is OON for the following location/s. Create an OON referral Patient cannot be scheduld until financially cleared; COVID Vaccine visits areexempt from this process : , , , , , , , , , , , , , , [facility] Needs unix developer to schedule. Thank you. Documentation Tracy [phone] You 2 days ago Ask for [place] [facility] Incoming call Notes No notes found. Care Advice No Care Advice given for this encounter. 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 Bilateral lower extremity edema chronic Chronic lymphocytic leukemia chronic DVT of leg (deep venous thrombosis) chronic Iron deficiency anemia due to chronic blood loss chronic Venous insufficiency of both lower extremities chronic Fistula involving buttock ac [place] Anemia in chronic illness ch ronic Hidradenitis chronic History of chronic lymphocytic leukemia chronic 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 Bilateral lower extremity edema chronic Chronic lymphocytic leukemia chronic DVT of leg (deep venous thrombosis) chronic Iron deficiency anemia due to chronic blood loss chronic Venous insufficiency of both lower extremities chronic 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 Bilateral lower extremity edema chronic Chronic lymphocytic leukemia chronic DVT of leg (deep venous thrombosis) chronic Iron deficiency anemia due to chronic blood loss chronic Venous insufficiency of both lower extremities chronic 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 Encounter for education acut e Anemia in chronic illness ch ronic Chronic lymphocytic leukemia chronic DVT of leg (deep venous thrombosis) chronic Iron deficiency anemia due to chronic blood loss chronic 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 Bilateral lower extremity edema chronic Chronic lymphocytic leukemia chronic DVT of leg (deep venous thrombosis) chronic Iron deficiency anemia due to chronic blood loss chronic Venous insufficiency of both lower extremities chronic Fistula involving buttock ac [place] CLL (chronic lymphocytic leukemia) chronic Hidradenitis chronic History of hepatitis B chron ic 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 Bilateral lower extremity edema chronic Chronic lymphocytic leukemia chronic DVT of leg (deep venous thrombosis) chronic Iron deficiency anemia due to chronic blood loss chronic Venous insufficiency of both lower extremities chronic 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 Bilateral lower extremity edema chronic Chronic lymphocytic leukemia chronic DVT of leg (deep venous thrombosis) chronic Iron deficiency anemia due to chronic blood loss chronic Venous insufficiency of both lower extremities chronic 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 Bilateral lower extremity edema chronic Chronic lymphocytic leukemia chronic DVT of leg (deep venous thrombosis) chronic Iron deficiency anemia due to chronic blood loss chronic Venous insufficiency of both lower extremities chronic History of heart failure acu te Anemia in chronic illness ch ronic CLL (chronic lymphocytic leukemia) chronic Hidradenitis chronic History of hepatitis B chron ic 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 Bilateral lower extremity edema chronic Chronic lymphocytic leukemia chronic DVT of leg (deep venous thrombosis) chronic Iron deficiency anemia due to chronic blood loss chronic Venous insufficiency of both lower extremities chronic 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 Bilateral lower extremity edema chronic Chronic lymphocytic leukemia chronic DVT of leg (deep venous thrombosis) chronic Iron deficiency anemia due to chronic blood loss chronic Venous insufficiency of both lower extremities [facility] Work Phone: Evaluation note* Diagnosis Onset Date Resolution Status 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 Bilateral lower extremity edema chronic Chronic lymphocytic leukemia chronic DVT of leg (deep venous thrombosis) chronic Iron deficiency anemia due to chronic blood loss chronic Venous insufficiency of both lower extremities chronic Fistula involving buttock ac [place] CLL (chronic lymphocytic leukemia) chronic Hidradenitis chronic Malnutrition chronic 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 Bilateral lower extremity edema chronic Chronic lymphocytic leukemia chronic DVT of leg (deep venous thrombosis) chronic Iron deficiency anemia due to chronic blood loss chronic Venous insufficiency of both lower extremities chronic 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 Bilateral lower extremity edema chronic Chronic lymphocytic leukemia chronic DVT of leg (deep venous thrombosis) chronic Iron deficiency anemia due to chronic blood loss chronic Venous insufficiency of both lower extremities chronic Fistula involving buttock ac [place] CLL (chronic lymphocytic leukemia) chronic Hidradenitis chronic Malnutrition chronic 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 Bilateral lower extremity edema chronic Chronic lymphocytic leukemia chronic DVT of leg (deep venous thrombosis) chronic Iron deficiency anemia due to chronic blood loss chronic Venous insufficiency of both lower extremities [facility] Work Phone: Evaluation note* Diagnosis Anemia due to multiple mechanisms- Primary Anemia, unspecified [facility] encounter [facility]* Diagnosis Anemia due to multiple mechanisms- Primary Anemia, unspecified CLL (chronic lymphocytic leukemia) (HCC) Chronic lymphoid leukemia, without mention of having achieved remission [facility]* Diagnosis Iron deficiency anemia, unspecified iron deficiency anemia type- Primary documented in [facility] encounter [facility]* Diagnosis OPENED IN ERROR [ (ICD-9-CM)]- Primary To allow closing an encounter opened in error (used in SmartSet) documented in this encounter [facility] note* Diagnosis Anemia due to multiple mechanisms- Primary Anemia, unspecified documented in this encounter [facility] note* Diagnosis Anemia due to multiple mechanisms- Primary Anemia, unspecified [facility] Hospital note* Diagnosis Hidradenitis suppurativa- Primary Hidradenitis documented in this encounter [facility] note* Diagnosis Hidradenitis suppurativa- Primary Hidradenitis documented in this encounter [facility] note* Diagnosis Hidradenitis suppurativa- Primary Hidradenitis documented in this encounter [facility] note* Diagnosis Hidradenitis suppurativa- Primary Hidradenitis documented in this encounter [facility] note* Diagnosis Sinus bradycardia- Primary Other specified cardiac dysrhythmias documented in this encounter [facility] note* Diagnosis Hidradenitis suppurativa- Primary Hidradenitis Dissecting cellulitis of scalp Other specified disease of hair and hair follicles documented in this encounter [facility] note* Diagnosis Hidradenitis suppurativa- Primary Hidradenitis [facility] Diagnosis AV block, 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 Other second degree atrioventricular block documented in this encounter [facility]* Diagnosis Hidradenitis suppurativa- Primary Hidradenitis documented in this encounter [facility]* Diagnosis NO SHOW- Primary documented in this encounter [facility] note* Diagnosis Hidradenitis suppurativa- Primary Hidradenitis Dissecting cellulitis of scalp Other specified disease of hair and hair follicles Stasis dermatitis Varicose veins of lower extremities with inflammation documented in this encounter [facility]* Diagnosis Rash and nonspecific skin eruption- Primary Rash and other nonspecific skin eruption Hyperpigmentation of skin Dyschromia, unspecified Stasis dermatitis Varicose veins of lower extremities with inflammation documented in this encounter [facility] note* Diagnosis Hidradenitis suppurativa- Primary Hidradenitis [facility] Diagnosis Dyschromia- Primary Dyschromia, unspecified Hyperpigmentation of skin Dyschromia, unspecified Disturbance of skin sensation Rash and nonspecific skin eruption Rash and other nonspecific skin eruption documented in this encounter [facility]* Diagnosis Disturbance of skin sensation- Primary Rash and nonspecific skin eruption Rash and other nonspecific skin eruption Hidradenitis suppurativa Hidradenitis Pruritus Unspecified pruritic disorder Peripheral edema Edema [facility] this [facility] Diagnosis Hidradenitis suppurativa- Primary Hidradenitis documented in this [facility] noteNo assessment information availableWMercy Health St[facility] Work Phone: Reason for referral (narrative)* Outpatient Procedure (Routine) - Authorized Specialty Diagnoses / Procedures Referred By Contac t Referred To Contact [facility] Diagnoses AV block, 2nd degree Procedures ECG COMPLETE ECG ROUTINE ECG W/LEAST 12 LDS W/I&R Sushil Kramer MD [address] [place] [address] [facility] [place] [address] Referral ID Status Reason Start Date Expiration Date Visits Requested Visits Authorized [id number] Authorized Auto-Generat ed Referral 03/11/2024 03/11/2025 1 1 [facility] for referral (narrative)No reason for referral information availableWMercy Health St. 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 Bilateral lower extremity edema Chronic lymphocytic leukemia DVT of leg (deep venous thrombosis) Iron deficiency anemia due to chronic blood loss Venous insufficiency of both lower extremities Fistula involving buttock Anemia in chronic illness Hidradenitis History of chronic lymphocytic leukemia 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 Bilateral lower extremity edema Chronic lymphocytic leukemia DVT of leg (deep venous thrombosis) Iron deficiency anemia due to chronic blood loss Venous insufficiency of both lower extremities 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 Bilateral lower extremity edema Chronic lymphocytic leukemia DVT of leg (deep venous thrombosis) Iron deficiency anemia due to chronic blood loss Venous insufficiency of both lower extremities 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 Encounter for education Anemia in chronic illness Chronic lymphocytic leukemia DVT of leg (deep venous thrombosis) Iron deficiency anemia due to chronic blood loss 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 Bilateral lower extremity edema Chronic lymphocytic leukemia DVT of leg (deep venous thrombosis) Iron deficiency anemia due to chronic blood loss Venous insufficiency of both lower extremities Fistula involving buttock CLL (chronic lymphocytic leukemia) Hidradenitis History of hepatitis B 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 Bilateral lower extremity edema Chronic lymphocytic leukemia DVT of leg (deep venous thrombosis) Iron deficiency anemia due to chronic blood loss Venous insufficiency of both lower extremities 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 Bilateral lower extremity edema Chronic lymphocytic leukemia DVT of leg (deep venous thrombosis) Iron deficiency anemia due to chronic blood loss Venous insufficiency of both lower extremities 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 Bilateral lower extremity edema Chronic lymphocytic leukemia DVT of leg (deep venous thrombosis) Iron deficiency anemia due to chronic blood loss Venous insufficiency of both lower extremities History of heart failure Anemia in chronic illness CLL (chronic lymphocytic leukemia) Hidradenitis History of hepatitis B 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 Bilateral lower extremity edema Chronic lymphocytic leukemia DVT of leg (deep venous thrombosis) Iron deficiency anemia due to chronic blood loss Venous insufficiency of both lower extremities 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 Bilateral lower extremity edema Chronic lymphocytic leukemia DVT of leg (deep venous thrombosis) Iron deficiency anemia due to chronic blood loss Venous insufficiency of both lower extremities Chief Complaint 2 WKS LABS VENOFER wound 2WKS LABS S/P [facility] wound 1MO - LABS 3WKS LABS Reason for Visit 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 Bilateral lower extremity edema Chronic lymphocytic leukemia DVT of leg (deep venous thrombosis) Iron deficiency anemia due to chronic blood loss Venous insufficiency of both lower extremities Fistula involving buttock CLL (chronic lymphocytic leukemia) Hidradenitis Malnutrition 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 Bilateral lower extremity edema Chronic lymphocytic leukemia DVT of leg (deep venous thrombosis) Iron deficiency anemia due to chronic blood loss Venous insufficiency of both lower extremities 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 Bilateral lower extremity edema Chronic lymphocytic leukemia DVT of leg (deep venous thrombosis) Iron deficiency anemia due to chronic blood loss Venous insufficiency of both lower extremities Fistula involving buttock CLL (chronic lymphocytic leukemia) Hidradenitis Malnutrition 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 Bilateral lower extremity edema Chronic lymphocytic leukemia DVT of leg (deep venous thrombosis) Iron deficiency anemia due to chronic blood loss Venous insufficiency of both lower extremities Chief Complaint Admit Date SEPSIS DUE TO SACRAL WOUND +/- PNEUMONIA January 30, 2025 6:38pm Family History Relationship Condition Age at Onset Recorded Date/T chris father Diabetes mellitus Unknown mother Hypertension Unknown Advance Directives Advance Directive Response Recorded Date/ Time Advance Directives No June 02, 2021 12:50pm Living Will No June 02 12:50pm Power of Cook Helper No June 02, 2021 12:50pm Documents on File Type Date Recorded Patient 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 Mechanic Expl anation Advance Directive(s) 02/25/2017 4:38 PM Advance Directive(s) 11/30/2016 6:47 PM Latest Code Status on File Code Status Date Activated Date Inactivated Comments DNR-CCA 03/17/2022 2:27 AM 03/27/2022 9:07 PM DNR Order Discussed With: Surrogate Decision Benja er Patient Latest Code Status on File Code Status Date Activated Date Inactivated Comments Full Code 04/20/2022 1:45 AM Full Code Order Discussed With: Patient DNR-CCA 03/17/2022 2:27 AM 03/27/2022 9:07 PM Latest Code Status on File Code Status Date Activated Date Inactivated Comments Full Code 04/20/2022 1:45 AM 04/25/2022 5:57 PM Date Activated Date Inactivated Comments 06/07/2023 11:23 PM 06/08/2023 10:14 PM Question Answer Comments Full Code Order Discussed With: Patient Date Activated Date Inactivated Comments 04/20/2022 1:45 AM 04/25/2022 5:57 PM Question Answer Comments Full Code Order Discussed With: Patient Date Activated Date Inactivated Comments 03/17/2022 2:27 AM 03/27/2022 9:07 PM Question Answer Comments DNR Order Discussed With: Surrogate Decision Benja erPatient Documents on File Type Date Recorded Patient Hydramatic Mechanic Expl anation Advance Directive(s) 02/11/2024 3:25 PM Date Activated Date Inactivated Comments 02/10/2024 12:14 PM Date Activated Date Inactivated Comments 06/07/2023 11:23 PM 06/08/2023 10:14 PM Date Activated Date Inactivated Comments 04/20/2022 1:45 AM 04/25/2022 5:57 PM Question Answer Comments Full Code Order Discussed With: Patient Date Activated Date Inactivated Comments 03/17/2022 2:27 AM 03/27/2022 9:07 PM Question Answer Comments DNR Order Discussed With: Surrogate Decision Benja erPatient Date Activated Date Inactivated Comments 02/10/2024 12:14 PM 02/15/2024 3:18 PM Documents on File Type Date Recorded Patient Hydramatic Mechanic Expl anation Advance Directive(s) 02/11/2024 3:25 PM Date Activated Date Inactivated Comments 02/10/2024 12:14 PM 02/15/2024 3:18 PM Question Answer Comments Full Code Order Discussed With: Patient Date Activated Date Inactivated Comments 06/07/2023 11:23 PM 06/08/2023 10:14 PM Question Answer Comments Full Code Order Discussed With: Patient Date Activated Date Inactivated Comments 04/20/2022 1:45 AM 04/25/2022 5:57 PM Question Answer Comments Full Code Order Discussed With: Patient Date Activated Date Inactivated Comments 03/17/2022 2:27 AM 03/27/2022 9:07 PM Question Answer Comments DNR Order Discussed With: Surrogate Decision Benja erPatient Advance Directive Response Recorded Date/ Time Do you have a Healthcare Power of Cook Helper? No January 30, 2025 3:58pm Advance Directives No June 02, 2021 12:50pm Summary Purpose Health Concerns Infection Onset Date Last Indicated Resolved Time COVID-19 Confirmed 03/16/2022 03/16/2022 Additional Source Comments Goals (unrecognized section and content) Goals may be documented in a n alternate sectionGoals may be documented in an alternate sectionGoals may be documented in an alternate section Source Comments (unrecognize d section and content) In the event this informatio n is protected by the Federal Confidentiality of Alcohol and Drug Abuse Patient Records regulations: The Federal rules restrict any use of the information to criminally investigate or prosecute any alcohol or drug abuse patient.[facility] the event this information is protected by the Federal Confidentiality of Alcohol and Drug Abuse Patient Records regulations: The Federal rules restrict any use of the information to criminally investigate or prosecute any alcohol or drug abuse patient.[facility]In the event this information is protected by the Federal Confidentiality of Alcohol and Drug Abuse Patient Records regulations: The Federal rules restrict any use of the information to criminally investigate or prosecute any alcohol or drug abuse patient.[facility]In the event this information is protected by the Federal Confidentiality of Alcohol and Drug Abuse Patient Records regulations: The Federal rules restrict any use of the information to criminally investigate or prosecute any alcohol or drug abuse patient.[facility]In the event this information is protected by the Federal Confidentiality of Alcohol and Drug Abuse Patient Records regulations: The Federal rules restrict any use of the information to criminally investigate or prosecute any alcohol or drug abuse patient.[facility] the event this information is protected by the Federal Confidentiality of Alcohol and Drug Abuse Patient Records regulations: The Federal rules restrict any use of the information to criminally investigate or prosecute any alcohol or drug abuse patient.[facility] the event this information is protected by the Federal Confidentiality of Alcohol and Drug Abuse Patient Records regulations: The Federal rules restrict any use of the information to criminally investigate or prosecute any alcohol or drug abuse patient.[facility] the event this information is protected by the Federal Confidentiality of Alcohol and Drug Abuse Patient Records regulations: The Federal rules restrict any use of the information to criminally investigate or prosecute any alcohol or drug abuse patient.[facility] the event this information is protected by the Federal Confidentiality of Alcohol and Drug Abuse Patient Records regulations: The Federal rules restrict any use of the information to criminally investigate or prosecute any alcohol or drug abuse patient.[facility]In the event this information is protected by the Federal Confidentiality of Alcohol and Drug Abuse Patient Records regulations: The Federal rules restrict any use of the information to criminally investigate or prosecute any alcohol or drug abuse patient.[facility]In the event this information is protected by the Federal Confidentiality of Alcohol and Drug Abuse Patient Records regulations: The Federal rules restrict any use of the information to criminally investigate or prosecute any alcohol or drug abuse patient.[facility]In the event this information is protected by the Federal Confidentiality of Alcohol and Drug Abuse Patient Records regulations: The Federal rules restrict any use of the information to criminally investigate or prosecute any alcohol or drug abuse patient.[facility] [place]In the event this information is protected by the Federal Confidentiality of Alcohol and Drug Abuse Patient Records regulations: The Federal rules restrict any use of the information to criminally investigate or prosecute any alcohol or drug abuse patient.[facility] [place]In the event this information is protected by the Federal Confidentiality of Alcohol and Drug Abuse Patient Records regulations: The Federal rules restrict any use of the information to criminally investigate or prosecute any alcohol or drug abuse patient.[facility] [place]In the event this information is protected by the Federal Confidentiality of Alcohol and Drug Abuse Patient Records regulations: The Federal rules restrict any use of the information to criminally investigate or prosecute any alcohol or drug abuse patient.[facility]In the event this information is protected by the Federal Confidentiality of Alcohol and Drug Abuse Patient Records regulations: The Federal rules restrict any use of the information to criminally investigate or prosecute any alcohol or drug abuse patient.[facility] [place]In the event this information is protected by the Federal Confidentiality of Alcohol and Drug Abuse Patient Records regulations: The Federal rules restrict any use of the information to criminally investigate or prosecute any alcohol or drug abuse patient.[facility] [place]In the event this information is protected by the Federal Confidentiality of Alcohol and Drug Abuse Patient Records regulations: The Federal rules restrict any use of the information to criminally investigate or prosecute any alcohol or drug abuse patient.[facility] [place]In the event this information is protected by the Federal Confidentiality of Alcohol and Drug Abuse Patient Records regulations: The Federal rules restrict any use of the information to criminally investigate or prosecute any alcohol or drug abuse patient.[facility] [place]In the event this information is protected by the Federal Confidentiality of Alcohol and Drug Abuse Patient Records regulations: The Federal rules restrict any use of the information to criminally investigate or prosecute any alcohol or drug abuse patient.[facility] [place]In the event this information is protected by the Federal Confidentiality of Alcohol and Drug Abuse Patient Records regulations: The Federal rules restrict any use of the information to criminally investigate or prosecute any alcohol or drug abuse patient.[facility] [place]In the event this information is protected by the Federal Confidentiality of Alcohol and Drug Abuse Patient Records regulations: The Federal rules restrict any use of the information to criminally investigate or prosecute any alcohol or drug abuse patient.[facility] [place]In the event this information is protected by the Federal Confidentiality of Alcohol and Drug Abuse Patient Records regulations: The Federal rules restrict any use of the information to criminally investigate or prosecute any alcohol or drug abuse patient.[facility] [place]In the event this information is protected by the Federal Confidentiality of Alcohol and Drug Abuse Patient Records regulations: The Federal rules restrict any use of the information to criminally investigate or prosecute any alcohol or drug abuse patient.[facility] [place]In the event this information is protected by the Federal Confidentiality of Alcohol and Drug Abuse Patient Records regulations: The Federal rules restrict any use of the information to criminally investigate or prosecute any alcohol or drug abuse patient.[facility] [place]In the event this information is protected by the Federal Confidentiality of Alcohol and Drug Abuse Patient Records regulations: The Federal rules restrict any use of the information to criminally investigate or prosecute any alcohol or drug abuse patient.[facility] [place]In the event this information is protected by the Federal Confidentiality of Alcohol and Drug Abuse Patient Records regulations: The Federal rules restrict any use of the information to criminally investigate or prosecute any alcohol or drug abuse patient.[facility] [place]In the event this information is protected by the Federal Confidentiality of Alcohol and Drug Abuse Patient Records regulations: The Federal rules restrict any use of the information to criminally investigate or prosecute any alcohol or drug abuse patient.[facility] [place]In the event this information is protected by the Federal Confidentiality of Alcohol and Drug Abuse Patient Records regulations: The Federal rules restrict any use of the information to criminally investigate or prosecute any alcohol or drug abuse patient.[facility] [place]In the event this information is protected by the Federal Confidentiality of Alcohol and Drug Abuse Patient Records regulations: The Federal rules restrict any use of the information to criminally investigate or prosecute any alcohol or drug abuse patient.[facility] [place]In the event this information is protected by the Federal Confidentiality of Alcohol and Drug Abuse Patient Records regulations: The Federal rules restrict any use of the information to criminally investigate or prosecute any alcohol or drug abuse patient.[facility] [place]In the event this information is protected by the Federal Confidentiality of Alcohol and Drug Abuse Patient Records regulations: The Federal rules restrict any use of the information to criminally investigate or prosecute any alcohol or drug abuse patient.[facility] [place]In the event this information is protected by the Federal Confidentiality of Alcohol and Drug Abuse Patient Records regulations: The Federal rules restrict any use of the information to criminally investigate or prosecute any alcohol or drug abuse patient.[facility] [place]In the event this information is protected by the Federal Confidentiality of Alcohol and Drug Abuse Patient Records regulations: The Federal rules restrict any use of the information to criminally investigate or prosecute any alcohol or drug abuse patient.[facility] [place]In the event this information is protected by the Federal Confidentiality of Alcohol and Drug Abuse Patient Records regulations: The Federal rules restrict any use of the information to criminally investigate or prosecute any alcohol or drug abuse patient.[facility] [place]In the event this information is protected by the Federal Confidentiality of Alcohol and Drug Abuse Patient Records regulations: The Federal rules restrict any use of the information to criminally investigate or prosecute any alcohol or drug abuse patient.[facility] [place]In the event this information is protected by the Federal Confidentiality of Alcohol and Drug Abuse Patient Records regulations: The Federal rules restrict any use of the information to criminally investigate or prosecute any alcohol or drug abuse patient.[facility] [place]In the event this information is protected by the Federal Confidentiality of Alcohol and Drug Abuse Patient Records regulations: The Federal rules restrict any use of the information to criminally investigate or prosecute any alcohol or drug abuse patient.[facility] [place]In the event this information is protected by the Federal Confidentiality of Alcohol and Drug Abuse Patient Records regulations: The Federal rules restrict any use of the information to criminally investigate or prosecute any alcohol or drug abuse patient.[facility] [place] the event this information is protected by the Federal Confidentiality of Alcohol and Drug Abuse Patient Records regulations: The Federal rules restrict any use of the information to criminally investigate or prosecute any alcohol or drug abuse patient.[facility] [place] the event this information is protected by the Federal Confidentiality of Alcohol and Drug Abuse Patient Records regulations: The Federal rules restrict any use of the information to criminally investigate or prosecute any alcohol or drug abuse patient.[facility] [place] the event this information is protected by the Federal Confidentiality of Alcohol and Drug Abuse Patient Records regulations: The Federal rules restrict any use of the information to criminally investigate or prosecute any alcohol or drug abuse patient.[facility] [place] the event this information is protected by the Federal Confidentiality of Alcohol and Drug Abuse Patient Records regulations: The Federal rules restrict any use of the information to criminally investigate or prosecute any alcohol or drug abuse patient.[facility] [place] the event this information is protected by the Federal Confidentiality of Alcohol and Drug Abuse Patient Records regulations: The Federal rules restrict any use of the information to criminally investigate or prosecute any alcohol or drug abuse patient.[facility] [place] the event this information is protected by the Federal Confidentiality of Alcohol and Drug Abuse Patient Records regulations: The Federal rules restrict any use of the information to criminally investigate or prosecute any alcohol or drug abuse patient.[facility] [place]on[place] the event this information is protected by the Federal Confidentiality of Alcohol and Drug Abuse Patient Records regulations: The Federal rules restrict any use of the information to criminally investigate or prosecute any alcohol or drug abuse patient.[facility] [place] Care Teams (unrecognized sec tion and content) Insurance Sales Agent Relationship Specialty Start Date End Date Marlon Michaud MD [address] [place], [place] [id number] PCP - General Family Practice 12/07/16 Bautista Estevez (Rn)(Hist), RN Specialty Veterinary Poultry Inspector Hematology/Oncology 3/19/18 Insurance Sales Agent Relationship Specialty Start Date End Date Marlon Michaud MD [address] [place], [place] [phone] PCP - General Family Practice 12/07/16 Bautista Estevez (Rn)(Hist), RN Specialty Veterinary Poultry Inspector Hematology/Oncology 09/17/17 Insurance Sales Agent Relationship Specialty Start Date End Date Marlon Michaud MD [address] [place], [place] [phone] PCP - General Family Practice 12/07/16 02/19/22 Bautista Estevez (Rn)(Hist), RN Specialty Veterinary Poultry Inspector Hematology/Oncology 09/17/17 Insurance Sales Agent Relationship Specialty Start Date End Date Bautista Estevez (Rn)(Hist), RN Specialty Veterinary Poultry Inspector Hematology/Oncology 09/17/17 Insurance Sales Agent Relationship Specialty Start Date End Date Bautista Estevez (Rn)(Hist), RN Specialty Veterinary Poultry Inspector Hematology/Oncology 09/17/17 Insurance Sales Agent Relationship Specialty Start Date End Date Bautista Estevez (Rn)(Hist), RN Specialty Veterinary Poultry Inspector Hematology/Oncology 09/17/17 Insurance Sales Agent Relationship Specialty Start Date End Date Sue Sanchez MD [address] [place] [id number] PCP - General Family Medicine 04/20/22 Bautista Estevez (Rn)(Hist), RN Specialty Veterinary Poultry Inspector Hematology/Oncology 09/17/17 Insurance Sales Agent Relationship Specialty Start Date End Date Sue Sanchez MD [address] [place] [address] [phone] PCP - General Family Medicine 04/20/22 Bautista Estevez (Rn)(Hist), RN Specialty Veterinary Poultry Inspector Hematology/Oncology 09/17/17 Insurance Sales Agent Relationship Specialty Start Date End Date Sue Sanchez MD [address] [place] [address] [phone] PCP - General Family Medicine 04/20/22 Bautista Estevez (Rn)(Hist), RN Specialty Veterinary Poultry Inspector Hematology/Oncology 09/17/17 Insurance Sales Agent Relationship Specialty Start Date End Date Sue Sanchez MD [address] [place] [id number] PCP - General Family Medicine 04/20/22 Bautista Estevez (Rn)(Hist), RN Specialty Veterinary Poultry Inspector Hematology/Oncology 09/17/17 Insurance Sales Agent Relationship Specialty Start Date End Date Sue Sanchez MD [address] [place] [address] [phone] PCP - General Family Medicine 04/20/22 Bautista Estevez (Rn)(Hist), RN Specialty Veterinary Poultry Inspector Hematology/Oncology 09/17/17 Insurance Sales Agent Relationship Specialty Start Date End Date Sue Sanchez MD [address] [place] [phone] PCP - General Family Medicine 04/20/22 Bautista Estevez (Rn)(Hist), RN Specialty Veterinary Poultry Inspector Hematology/Oncology 09/17/17 Insurance Sales Agent Relationship Specialty Start Date End Date Sue Sanchez MD [address] [place] [phone] PCP - General Family Medicine 04/20/22 Bautista Estevez (Rn)(Hist), RN Specialty Veterinary Poultry Inspector Hematology/Oncology 09/17/17 Insurance Sales Agent Relationship Specialty Start Date End Date Marlon Michaud MD [address] [place], [place] [phone] PCP - General Family Medicine 09/18/22 09/20/22 Bautista Estevez (Rn)(Hist), RN Specialty Veterinary Poultry Inspector Hematology/Oncology 09/17/17 Insurance Sales Agent Relationship Specialty Start Date End Date Bautista Estevez (Rn)(Hist), RN Specialty Veterinary Poultry Inspector Hematology/Oncology 09/17/17 Insurance Sales Agent Relationship Specialty Start Date End Date Bautista Estevez (Rn)(Hist), RN Specialty Veterinary Poultry Inspector Hematology/Oncology 09/17/17 Insurance Sales Agent Relationship Specialty Start Date End Date Dinora Bansal MD [address] [place] [address] PCP - General Gerontology 06/07/23 Bautista Estevez (Rn)(Hist), RN Specialty Veterinary Poultry Inspector Hematology/Oncology 09/17/17 Insurance Sales Agent Relationship Specialty Start Date End Date Dinora Bansal MD [address] [place] [address] PCP - General Gerontology 06/07/23 Bautista Estevez (Rn)(Hist), RN Specialty Veterinary Poultry Inspector Hematology/Oncology 09/17/17 Insurance Sales Agent Relationship Specialty Start Date End Date Dinora Bansal MD [address] [place] [address] PCP - General Gerontology 06/07/23 Bautista Estevez (Rn)(Hist), RN Specialty Veterinary Poultry Inspector Hematology/Oncology 09/17/17 Insurance Sales Agent Relationship Specialty Start Date End Date Dinora Bansal MD [address] [place] [address] PCP - General Gerontology 06/07/23 Bautista Estevez (Rn)(Hist), RN Specialty Veterinary Poultry Inspector Hematology/Oncology 09/17/17 Insurance Sales Agent Relationship Specialty Start Date End Date Dinora Bansal MD [address] [place] [address] PCP - General Gerontology 06/07/23 Bautista Estevez (Rn)(Hist), RN Specialty Veterinary Poultry Inspector Hematology/Oncology 09/17/17 Insurance Sales Agent Relationship Specialty Start Date End Date Dinora Bansal MD [address] [place] [address] PCP - General Gerontology 06/07/23 Bautista Estevez (Rn)(Hist), RN Specialty Veterinary Poultry Inspector Hematology/Oncology 09/17/17 Insurance Sales Agent Relationship Specialty Start Date End Date Dinora Bansal MD [address] [place] [address] PCP - General Gerontology 06/07/23 Bautista Estevez (Rn)(Hist), RN Specialty Veterinary Poultry Inspector Hematology/Oncology 09/17/17 Insurance Sales Agent Relationship Specialty Start Date End Date Dinora Bansal MD [address] [place] [address] PCP - General Gerontology 06/07/23 Bautista Estevez (Rn)(Hist), RN Specialty Veterinary Poultry Inspector Hematology/Oncology 09/17/17 Insurance Sales Agent Relationship Specialty Start Date End Date Dinora Bansal MD [address] [place] [address] PCP - General Gerontology 06/07/23 Bautista Estevez (Rn)(Hist), RN Specialty Veterinary Poultry Inspector Hematology/Oncology 09/17/17 Insurance Sales Agent Relationship Specialty Start Date End Date Dinora Bansal MD [address] [place] [address] PCP - General Gerontology 06/07/23 Bautista Estevez (Rn)(Hist), RN Specialty Veterinary Poultry Inspector Hematology/Oncology 09/17/17 Insurance Sales Agent Relationship Specialty Start Date End Date Dinora Bansal MD [address] [place] [address] PCP - General Gerontology 06/07/23 Bautista Estevez (Rn)(Hist), RN Specialty Veterinary Poultry Inspector Hematology/Oncology 09/17/17 Insurance Sales Agent Relationship Specialty Start Date End Date Dinora Bansal MD [address] [place] [address] PCP - General Gerontology 06/07/23 Bautista Estevez (Rn)(Hist), RN Specialty Veterinary Poultry Inspector Hematology/Oncology 09/17/17 Insurance Sales Agent Relationship Specialty Start Date End Date Dinora Bansal MD [address] [place] [phone] PCP - General Gerontology 06/07/23 Bautista Estevez (Rn)(Hist), RN Specialty Veterinary Poultry Inspector Hematology/Oncology 09/17/17 Insurance Sales Agent Relationship Specialty Start Date End Date Dinora Bansal MD [address] [place] [address] PCP - General Gerontology 06/07/23 Bautista Estevez (Rn)(Hist), RN Specialty Veterinary Poultry Inspector Hematology/Oncology 09/17/17 Insurance Sales Agent Relationship Specialty Start Date End Date Dinora Bansal MD [address] [place] [address] PCP - General Gerontology 06/07/23 Bautista Estevez (Rn)(Hist), RN Specialty Veterinary Poultry Inspector Hematology/Oncology 09/17/17 Team Status: Active Member Role/Relationship Status Dates Dr. Mone Castillo MD Primary Care Provider Ac tive Team Status: Active Member Role/Relationship Status Dates Dr. Oliver Judge DO Emergency Provider Activ e Start: January 30, 2025 Dr. Mone Castillo MD Primary Care Provider Ac tive Start: January 30, 2025 Dr. Rosalio Juarez DO Admit Provider Active Start: January 30, 2025 Dr. Rosalio Juarez DO Attending Provider Active Start: January 30, 2025 (unrecognized sect ion and content) No Status Records FoundNo Status Records FoundNo Status Records FoundNo Status Records Found INFORMATION SOURCE (unrecogn ized section and content) DATE CREATED AUTHOR 12/16/2021 [facility] [place] DATE CREATED AUTHOR AUTHOR'S ORGANIZ ATION 08/25/2024 [facility] DATE CREATED AUTHOR AUTHOR'S ORGANIZ ATION 10/12/2024 [facility] DATE CREATED AUTHOR AUTHOR'S ORGANIZ ATION 12/14/2024 [facility] Reason for Visit (unrecogniz ed section and content) Reason Comments Appointment Veterinary Poultry Inspector - Other Reason Comments Patient Update Reason Comments Appointment Patient Question Reason Onset Date Comments Population Health Navigation Outreach 03/28/2022 [facility] Attribution Reason Comments Orders Reason Onset Date Comments 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 Chart review Reason Comments Appointment Reason Comments Needs rescheduled Reason Onset Date Comments 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 Follow up with SNF Reason Onset Date Comments 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 05/15/2022 Follow up with SNF Reason Comments Erroneous encounter-disregard Reason Comments Returning Patient's Call Please see tele phone encounter Reason Onset Date Comments SPP Inflammatory Conditions - Treatment Referral 11/02/2023 [facility] Insurance Authorization 11/02/2023 [place] Submi ssion Pending Reason Onset Date Comments SPP Inflammatory Conditions - Medication Refill 11/28/2023 [facility] 05/2024 Reason Onset Date Comments SPP Inflammatory Conditions - Medication Refill 12/27/2023 [facility] 05/2024 Reason Onset Date Comments SPP Inflammatory Conditions - Medication Refill 01/30/2024 [facility] 05/2024 Reason Comments Nurse Triage Call Reason Comments Event Zio patch Specialty Diagnoses / Procedures Referred By Contac t Referred To Contact HOSP INPATIENT Diagnoses AMS (altered mental status) Procedures [facility] [id number] [place] [address] Referral ID Status Reason Start Date Expiration Date Visits Re quested Visits Authorized [id number] 1 Reason Comments hidradenitis suppurativa Reason Onset Date Comments SPP Inflammatory Conditions - Medication Refill 02/26/2024 [facility] Reason Onset Date Comments SPP Inflammatory Conditions - Medication Refill 03/25/2024 [facility] Reason Comments No Show Reason Comments Hidradenitis supprativa Reason Onset Date Comments Refill Request 04/22/2024 Reason Comments Hidradenitis suppurativa Reason Onset Date Comments SPP Inflammatory Conditions - Follow-up 06/13/20 [facility] Insurance Authorization 06/13/2024 ROSHAN renew al approved Reason Comments Follow Up Reason Onset Date Comments SPP Inflammatory Conditions - Medication Refill 07/14/2024 [facility] Reason Comments Rash Reason Onset Date Comments SPP Inflammatory Conditions - Medication Refill 08/18/2024 [facility] Reason Onset Date Comments SPP Inflammatory Conditions - Follow-up 10/21/19 [facility] Insurance Authorization 10/20/2024 ROSHAN appro [email or web address] insurance Reason Onset Date Comments Refill Request 10/31/2024 Reason Onset Date Comments SPP Inflammatory Conditions - Medication Refill 11/27/2024 [facility] FOR RECORDS PERTAINING TO PATIENTS WHO ARE OR HAVE BEEN ENROLLED IN A CHEMICAL DEPENDENCY/SUBSTANCEABUSE PROGRAM, SOME INFORMATION MAY BE OMITTED. This clinical summary was aggregated from multiple sources. Caution should be exercised in using it in the provision of clinical care. This summary normalizes information from multiple sources, and as a consequence, information in this document may materially change the coding, format and clinical context of patient data. In addition, data may be omitted in some cases. CLINICAL DECISIONS SHOULD BE BASED ON THE PRIMARY CLINICAL RECORDS. [employer] provides no warranty or guarantee of the accuracy or completeness of information in this document.
--- NOTE | 2025-01-30 20:29 | PCM.RX.CS ---
Consult Antibiotic Management Pharmacy has been consulted to manage selected antibiotic: Vancomycin Type of Intervention Type of Consult: New start Suspected Infection Suspected Infection: Sepsis and Pneumonia Prior Doses of Antibiotics Prior Doses of Antibiotics Received/Current Regimen: 2000 mg in ED Labs Labs: Sodium 133 mmol/L (133-145) 01/30/25 16:23 Potassium 4.3 mmol/L (3.3-5.1) 01/30/25 16:23 Chloride 98 mmol/L (98-108) 01/30/25 16:23 Carbon Dioxide 22.9 mmol/L (21.0-32.0) 01/30/25 16:23 Anion Gap 12 (5-15) 01/30/25 16:23 BUN 24 mg/dL (4-19) H 01/30/25 16:23 Creatinine 1.41 mg/dL (0.70-1.20) H 01/30/25 16:23 Est GFR (MDRD) Non-Af 55 (>60) L 01/30/25 16:23 BUN/Creatinine Ratio 16.7 RATIO (10-20) 01/30/25 16:23 Glucose 106 mg/dL (70-99) H 01/30/25 16:23 Microbiology Microbiology: PEDNING Dosing Weight Weight used for dosin.8 kg Goal Trough Goal Trough: 15-20 mcg/mL Pharmacy Plan for Drug Dosing Pharmacy Plan for Drug Dosing: NEW START IV VANCOMYCIN Consulting Physician: Ann Indication: Sepsis/Pneumonia Goal Trough: 15-20 SrCr: 1.41 mg/dL CrCl: 78.14 ml/min Vancomycin Dose: 2000 mg once, then 1750 mg q12h Pending Level: 02/01/2025 @0500 Pharmacy Service will continue to monitor and adjust dosing as required. Follow-Up Labs Follow-Up Labs: Trough: Vancomycin Date/Time Labs Ordered Labs to be done on [date and time ordered]: 02/01/2025 @0500
[2025-01-30] MEDS: Lactated Ringers 1,000 ML 125 ML IV (21:18)
[2025-01-30] MEDS: Piperacil/Tazobactam 3.375 GM in 0.9% Normal Saline (50mL MB+) 50 ML IV (22:52)
[2025-01-30] MEDS: Lactobacillis Acidophilus 1 CAP PO (22:56)
[2025-01-30 23:14] LABS: Mucous, Urine 0 SEEN /hpf (<or=2+)
[2025-01-30 23:15] LABS: Color, Urine Yellow (Yellow); Glucose, Dipstick Normal (Normal); Ketone-Dipstick Negative (Negative); Leukocyte Esterase-Dipstick 500 /ul (Negative); Nitrite-Dipstick Negative (Negative); Occult Blood-Urine 10 /ul (Negative); Protein-Dipstick 30 mg/dl (Negative); Specific Gravity, Urine 1.010 (1.002-1.030); Urine Bilirubin Dipstick Negative (Negative)
[2025-01-30 23:51] LABS: Red Blood Cells-Urine 0-5 SEEN /hpf (0-5); Squamous Epithelial Cells - UA 0-5 SEEN /hpf (0-5)
[2025-01-31 03:12] VITALS: BP 110/46; PULSE 101; RESP 18; TEMP 36.1; O2SAT 94
[2025-01-31] MEDS: Piperacil/Tazobactam 3.375 GM in 0.9% Normal Saline (50mL MB+) 50 ML IV ×3 (05:23→20:58)
[2025-01-31] MEDS: Vancomycin HCl 1,750 MG in 0.9% Normal Saline (500mL Bag) 500 ML 250 MG IV ×2 (05:27→17:47)
[2025-01-31 07:48] VITALS: BP 110/65; PULSE 94; RESP 16; TEMP 37.1; O2SAT 96
[2025-01-31] MEDS: Calcium (Elemental) 500 MG Tablet PO (07:56)
[2025-01-31] MEDS: Lactobacillis Acidophilus 1 CAP PO ×2 (07:56→20:58)
[2025-01-31 08:00] LABS: Hematocrit 32.5 % (40-54); Hemoglobin 10.0 g/dL (13.0-16.5); Mean Corp Hgb Conc 30.8 g/dL (32-36); Mean Corpuscular Volume 73.7 fL (80-94); Mean Platelet Vol. 11.3 fl (6.2-12.0); Platelet Count 151 K/mm3 (150-450); RBC Distribution Width CV 17.0 % (11.6-14.6); RBC Distribution Width SD 44.9 fl (35.1-43.9); Red Blood Count 4.41 M/mm3 (4.6-6.2); White Blood Count 11.0 K/mm3 (4.4-11.0)
[2025-01-31 08:54] LABS: Anion Gap 12 (5-15); BUN 19 mg/dL (4-19); BUN/Creat Ratio 16.9 RATIO (10-20); Calcium,Total 8.0 mg/dL (7.6-11.0); Carbon Dioxide 20.6 mmol/L (21.0-32.0); Chloride 103 mmol/L (98-108); Estimated Creatinine Clearance 100.09 ml/min (50-250); Glucose 112 mg/dL (70-99); Potassium 3.6 mmol/L (3.3-5.1)
[2025-01-31 11:00] LABS: Magnesium 1.8 mg/dL (1.5-2.2)
[2025-01-31 11:34] VITALS: O2SAT 94
[2025-01-31] MEDS: IBRUTINIB 140 MG CAPSULE 420 MG PO (12:48)
--- NOTE | 2025-01-31 12:54 | PN_ITS ---
Subjective Subjective Patient seen and examined. He was admitted with a complaint of abnormal labs and fatigue as well as malaise. However hemoglobin was 11.3 when he came in. He was noted to be febrile and tachycardic and had elevated WBC at drainage from his chronic Cipro. He is therefore being managed for sepsis due to infected sacral decubitus ulcer. He still complains of pain at the site of the sacral decubitus ulcer. He denies any fever or chills, nausea vomiting or any other symptoms. Review of symptoms otherwise negative. Objective Data Objective Data Vital Signs: Vital Signs Temp Pulse Resp BP Pulse Ox O2 Del Method 98.7 F 94 16 110/65 94 Room Air 01/31/25 07:48 01/31/25 07:48 01/31/25 07:48 01/31/25 07:48 01/31/25 11:34 01/31/25 11:34 Oxygen Delivery Method Room Air Weight: 303 lb 5.697 oz Body Mass Index (BMI) 36.9 Intake & Output: Intake and Output for Last 24 Hours 01/29/25 01/30/25 01/31/25 23:59 23:59 23:59 Intake Total 1640 / 1640 1635 / 1635 Output Total 300 / 300 Balance 1340 / 1340 1635 / 1635 Lab / Micro Data 01/31/25 07:30 01/31/25 07:30 Labs: Laboratory Results - last 24 hr 01/30/25 16:23: WBC 18.0 H, RBC 5.01, Hgb 11.3 L, Hct 36.5 L, MCV 72.9 L, MCH 22.6 L, MCHC 31.0 L, RDW Std Deviation 43.9, RDW Coeff of Alisa 17.1 H, Plt Count 189, MPV 12.3 H, Immature Gran % (Auto) 0.700, Neut % (Auto) 90.5 H, Lymph % (Auto) 4.6 L, [place] % (Auto) 3.7, Eos % (Auto) 0.3, Baso % (Auto) 0.2, Absolute Neuts (auto) 16.3 H, Absolute Lymphs (auto) 0.83, Nucleated RBC % 0, PT 16.4 H, INR 1.3, APTT 32.1, Sodium 133, Potassium 4.3, Chloride 98, Carbon Dioxide 22.9, Anion Gap 12, BUN 24 H, Creatinine 1.41 H, Estim Creat Clear Calc 78.14, Est GFR (MDRD) Non-Af 55 L, BUN/Creatinine Ratio 16.7, Glucose 106 H, Calcium 8.5, Iron 10 L, TIBC 246 L, Iron Saturation 4.0 L, Unsaturated IBC 236, Ferritin 132, Total Bilirubin 0.80, AST 19, ALT 8, Alkaline Phosphatase 110, Troponin T High Sens 34 H, NT pro BNP II 506, Total Protein 6.5, Albumin 3.3 L, Globulin 3.2, Albumin/Globulin Ratio 1.0 01/30/25 16:24: Lactic Acid 1.9 01/30/25 18:37: Troponin T Hi Sens 2 Hr 33 H 01/30/25 23:00: Urine Color Yellow, Urine Clarity Clear, Urine pH 6.0, Ur Specific Thurman 1.010, Urine Protein 30 H, Urine Glucose (UA) Normal, Urine Ketones Negative, Urine Occult Blood 10 H, Urine Nitrite Negative, Urine Bilirubin Negative, Urine Urobilinogen 1 H, Ur Leukocyte Esterase 500 H, Urine RBC 0-5 SEEN, Urine WBC >100 SEEN, Ur Squamous Epith Cells 0-5 SEEN, Urine Bacteria 2+, Urine Mucus 0 SEEN 01/31/25 07:30: WBC 11.0, RBC 4.41 L, Hgb 10.0 L, Hct 32.5 L, MCV 73.7 L, MCH 22.7 L, MCHC 30.8 L, RDW Std Deviation 44.9 H, RDW Coeff of Alisa 17.0 H, Plt Count 151, MPV 11.3, Sodium 136, Potassium 3.6, Chloride 103, Carbon Dioxide 20.6 L, Anion Gap 12, BUN 19, Creatinine 1.10, Estim Creat Clear Calc 100.09, Est GFR (MDRD) Non-Af 74, BUN/Creatinine Ratio 16.9, Glucose 112 H, Calcium 8.0, Magnesium 1.8 Micro: Microbiology 01/30/25 16:33 Wound - Buttock Wound Culture - Preliminary Mixed Gram Pos & Gram Neg Org 01/30/25 17:42 Mucosa - Nasopharyngeal Respiratory Panel (PCR) - Final Radiography Diagnostic Testing: Radiology Impression Abdomen/Pelvis CT 01/30/25 17:06 IMPRESSION: 1. Extensive soft tissue infection of the bilateral buttocks, characterized by branching and interconnected soft tissue thickening with foci of gas and fluid, just deep to the skin surface. No deep fascial involvement or muscle extension. Small right buttock skin defect without large ulceration. 2. Bilateral pelvic lymphadenopathy, likely related to patient's known chronic lymphocytic leukemia versus reactive lymphadenopathy due to soft tissue infection. 3. Diffuse scrotal edema and thickening, possibly due to infection/inflammation. Clinical correlation is recommended. 4. Hyperdense right renal lesion with peripheral calcification, possibly a complicated cyst with internal debris or a calcified mass. A follow-up renal protocol CT or MRI is recommended. 5. Dependent lower lobe atelectasis/infiltrates bilaterally. Reading [facility] Chest X-Ray 01/30/25 17:10 IMPRESSION: Hazy right basilar opacity may represent a small layering pleural effusion versus consolidation. Scattered bibasilar linear/discoid atelectasis. Mild cardiomegaly. Reading Location: [facility] Physical Exam Const alert, oriented x3 and no apparent distress Constitutional Narrative: frail General Appearance: cooperative HEENT normocephalic and head/scalp atraumatic Mouth: dry mucous membranes Eyes PERRL and EOMs intact bilaterally Neck no lymphadenopathy and supple Resp Resp Narrative: mildly diminished breath sounds bibasally, no wheezes or crackles. On room air. Cardio regular rate, regular rhythm, S1 normal heart sound, S2 normal heart sound and no murmurs GI normal to inspection, nondistended, normoactive bowel sounds, soft to palpation, non-tender and non-distended Extremity normal capillary refill, no clubbing, cyanosis or edema and no calf tenderness Skin Skin Narrative: intact dressing over sacral decubitus ulcer. Neuro no focal motor deficits Motor Exam: general weakness Psych thought process normal and cooperative Appearance: appropriate Assessment & Plan Assessment/Plan (1) Cellulitis of buttock: PLAN: Plan #Infected sacral decubitus ulcer with resultant buttock cellulitis * He also has a history of chronic hidradenitis suppurativa. Wound cultures ordered. * He had active drainage from the sacral wound on admission and CT of the abdomen and pelvis showed extensive soft tissue infection of the bilateral buttocks. On IV vancomycin and Zosyn. * Consult plastic surgery. Hydrate gently with IV fluids. Wound care on board. * wbc is down to 11 from 18 on admission. #UVALDO: resolved. Cr is down to 1.1 from 1.41 yesterday. #Chronic iron deficiency anemia: Hb is at baseline at ~ 11-12. Not on iron supplements. Follow up with oncology on outpatient basis #HFpEF: not in exacerbation. lasix on hold. #GERD: on PPI #Hypothyroidism: on synthroid #Histoyr o fDVT: not currently anticoagulated due to history of anemia requiring transfusions. #History of CLL: Diagnosed in 2020 initially treated with high-dose steroids and Rituxan. Had relapse and was started on ibrutinib in 2021. Has remained in remission since. Follow-up with oncology on outpatient basis. DVT prophylaxis: SCDs. Charges/Coding Visit Charges Inpatient E&M: 52854 Subs Hosp L2
[2025-01-31] MEDS: 0.9% Saline Lock 10 ML Syringe IV ×2 (14:07→17:47)
[2025-01-31 14:16] VITALS: BP 122/65; PULSE 75; RESP 16; TEMP 36.5; O2SAT 95
[2025-01-31 16:41] VITALS: BP 121/69; PULSE 81; RESP 16; TEMP 36.6; O2SAT 96
[2025-01-31] MEDS: Juven (unflavored) Packet 1 PACKET PO (16:43)
--- NOTE | 2025-01-31 16:46 | CASEMGMT ---
Social Work Pt is here from [facility]. SW spoke w/pt, confirmed the plan will be for him to return at d/c, SNF list not needed at this time. Pt states he has been there for over a year. SW sent updates in [facility], it is anticipated pt will be here through the weekend. SW will follow up on Sunday. JIMMY Chou
[2025-01-31 21:00] VITALS: BP 129/73; PULSE 91; RESP 16; TEMP 36.6; O2SAT 95
[2025-02-01 03:00] VITALS: BP 134/65; PULSE 86; RESP 16; TEMP 36.6; O2SAT 95
[2025-02-01] MEDS: Piperacil/Tazobactam 3.375 GM in 0.9% Normal Saline (50mL MB+) 50 ML IV ×3 (05:46→23:00)
[2025-02-01 05:47] LABS: Hematocrit 31.9 % (40-54); Hemoglobin 9.8 g/dL (13.0-16.5); Immature Granulocytes Count 0.100 X10^3/uL (0.0-0.0); Mean Corp Hgb Conc 30.7 g/dL (32-36); Mean Corpuscular Volume 73.2 fL (80-94); Mean Platelet Vol. 11.6 fl (6.2-12.0); NRBC Flagged by Analyzer 0 % (0-5); Platelet Count 176 K/mm3 (150-450); RBC Distribution Width CV 16.8 % (11.6-14.6); RBC Distribution Width SD 44.2 fl (35.1-43.9); Red Blood Count 4.36 M/mm3 (4.6-6.2); White Blood Count 7.5 K/mm3 (4.4-11.0)
[2025-02-01 06:27] LABS: Vancomycin, Trough Level 14.5 ug/mL (5.0-15.0)
[2025-02-01 06:28] LABS: Anion Gap 10 (5-15); BUN 15 mg/dL (4-19); BUN/Creat Ratio 16.1 RATIO (10-20); Calcium,Total 8.2 mg/dL (7.6-11.0); Carbon Dioxide 20.9 mmol/L (21.0-32.0); Chloride 104 mmol/L (98-108); Estimated Creatinine Clearance 114.68 ml/min (50-250); Glucose 118 mg/dL (70-99); Potassium 3.2 mmol/L (3.3-5.1)
--- NOTE | 2025-02-01 06:40 | PHA.PHARE_ITS ---
Consult Antibiotic Management Pharmacy has been consulted to manage selected antibiotic: Vancomycin Type of Intervention Type of Consult: Follow-up Suspected Infection Suspected Infection: Sepsis and Pneumonia Labs Labs: Sodium 135 mmol/L (133-145) 02/01/25 05:25 Potassium 3.2 mmol/L (3.3-5.1) L 02/01/25 05:25 Chloride 104 mmol/L (98-108) 02/01/25 05:25 Carbon Dioxide 20.9 mmol/L (21.0-32.0) L 02/01/25 05:25 Anion Gap 10 (5-15) 02/01/25 05:25 BUN 15 mg/dL (4-19) 02/01/25 05:25 Creatinine 0.96 mg/dL (0.70-1.20) 02/01/25 05:25 Est GFR (MDRD) Non-Af 88 (>60) 02/01/25 05:25 BUN/Creatinine Ratio 16.1 RATIO (10-20) 02/01/25 05:25 Glucose 118 mg/dL (70-99) H 02/01/25 05:25 Vancomycin Trough 14.5 ug/mL (5.0-15.0) 02/01/25 05:25 Microbiology Microbiology: Microbiology 01/30/25 16:33 Wound - Buttock Gram Stain - Final 01/30/25 16:33 Wound - Buttock Wound Culture - Preliminary Mixed Gram Pos & Gram Neg Org 01/30/25 23:00 Urine, Catheterized Urine Culture - 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 Will increase dosing to 2000mg q12h, and will draw another trough level prior to fourth dose of the new regimen. Pharmacy Service will continue to monitor and adjust dosing as required. Follow-Up Labs Follow-Up Labs: Trough: Vancomycin Date/Time Labs Ordered Labs to be done on [date and time ordered]: 02/02/25 @7587
[2025-02-01 07:23] VITALS: O2SAT 95
[2025-02-01 09:00] VITALS: BP 120/69; PULSE 80; RESP 18; TEMP 36.6; O2SAT 99
[2025-02-01] MEDS: Lactobacillis Acidophilus 1 CAP PO ×2 (09:26→20:48)
[2025-02-01] MEDS: Juven (unflavored) Packet 1 PACKET PO ×2 (09:26→16:59)
[2025-02-01] MEDS: Calcium (Elemental) 500 MG Tablet PO (09:27)
[2025-02-01] MEDS: IBRUTINIB 140 MG CAPSULE 420 MG PO (09:28)
[2025-02-01] MEDS: Vancomycin HCl 2,000 MG in 0.9% Normal Saline (500mL Bag) 500 ML 250 MG IV ×2 (09:39→20:41)
[2025-02-01] MEDS: Potassium Chloride Oral Tablet 20 MEQ 40 MEQ PO (09:39)
--- NOTE | 2025-02-01 09:45 | EX.PCM.CON.S ---
Assessment & Plan Assessment/Plan (1) Cellulitis of buttock: PLAN: Plan The patient is a 64-year-old male with pretty severe bilateral chronic gluteal hidradenitis suppurativa. He has undergone numerous previous surgeries. I was asked to see the patient to evaluate for any current abscesses. I do not appreciate any obvious undrained abscess that would require surgical intervention at the present. I would recommend continued local wound care. Wound care nurse likely to also evaluate patient tomorrow. Certainly if she encounters any areas of concern, we can certainly be of assistance if needed. However at this point I feel local wound care is sufficient. Discussed with hospitalist also present at bedside HPI Consult Data Date of Consult: 02/01/25 HPI Narrative Reason for Consultation: Possible infected decubitus ulcer HPI Narrative: MARYCRUZ VARGAS, is a 64 M who was admitted to [facility] on 01/30/2025 from his extended care facility due to fatigue and malaise. Patient has a history of chronic hidradenitis suppurativa of the bilateral gluteal regions which have required numerous surgeries over the years. He states that this began when he was around 15 or 16. He has seen numerous surgeons at [facility] for this problem over the years. He states that he always has at least some degree of drainage and pain from this region. He states that this is not currently any different than his usual baseline. All of the surgeons have pretty much told him that this is a chronic problem that is really not going to be resolved. When admitted he had low-grade temperature as well as a leukocytosis of 18,000. He was subsidy admitted as a CT scan showed irregular soft tissue density thickening with possible air and fluid. General surgery consult was obtained to better evaluate the nature of his bilateral gluteal wounds. 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 Anemia, macrocytic Bilateral lower extremity edema Chronic lymphocytic leukemia Edema, lower extremity Home Medications ?Medication ?Instructions ?Recorded ?Last Taken ?Type folic acid 1 mg tablet 1 mg PO DAILY #100 tabs 04/07/21 Unknown Rx Lactobacillus rhamnosus GG 10 1 cap PO BID 06/21/22 Unknown History billion cell capsule (Culturelle) acetaminophen 325 mg tablet 325 mg PO Q6H PRN pain 06/21/22 Unknown History (Tylenol) calcium carbonate 500 mg PO DAILY 06/21/22 Unknown History ergocalciferol (vitamin D2) 1,250 1,250 mcg PO QWEEK 06/21/22 Unknown History mcg (50,000 unit) capsule ondansetron HCl 4 mg tablet 4 mg PO Q4H PRN nausea and vomiting 06/21/22 Unknown History ibrutinib 420 mg tablet 420 mg PO DAILY 11/30/22 Unknown History atorvastatin 10 mg tablet 10 mg PO QHS 06/19/23 Unknown History ketoconazole 2 % shampoo 1 applic topical DAILY PRN dry skin 06/19/23 Unknown History loperamide 2 mg capsule 2 mg PO Q6H PRN loose stool 06/19/23 Unknown History multivitamin 1 tab PO DAILY 06/19/23 Unknown History secukinumab 150 mg/mL subcutaneous 300 mg subcut Q4W 12/11/23 Unknown History syringe (Cosentyx) furosemide 80 mg tablet (Lasix) 80 mg PO DAILY 08/03/24 Unknown History ibrutinib 140 mg capsule 420 mg PO DAILY 08/03/24 Unknown History (Imbruvica) levothyroxine 25 mcg capsule 25 mcg PO DAILY 08/03/24 Unknown History loratadine 10 mg tablet 10 mg PO DAILY 08/03/24 Unknown History potassium chloride 20 mEq oral 40 meq PO DAILY 08/03/24 Unknown History packet clobetasol 0.05 % shampoo (Clobex) 1 applic topical .COMPLEX 01/30/25 Unknown History cyclobenzaprine 10 mg tablet 10 mg PO TID 01/30/25 Unknown History fluocinolone 0.01 % scalp oil and 1 applic topical QHS 01/30/25 Unknown History shower cap guaifenesin 600 mg tablet, 600 mg PO BID PRN congestion 01/30/25 Unknown History extended release 12 hr (Mucinex) omeprazole 20 mg capsule,delayed 20 mg PO DAILY 01/30/25 Unknown History release Allergy/AdvReac Type Severity Reaction Status Date / Time No Known Allergies Allergy Verified 08/04/24 00:24 Family History Father Diabetes Mother Hypertension Surgical History H/O foot surgery History of tonsillectomy Social History (Updated 01/30/25 @ 15:58 by Chelsea Clarke) housing: longterm Smoking Status: Former smoker second hand exposure: No alcohol intake: current alcohol intake frequency: holidays/special occasions only details: occasionally diet: low salt estelle/jehovah's witness: Sikh seatbelt use: always do you feel safe at home: Yes ROS Eyes Eyes: Reports systems reviewed and no addt'l complaints, except as documented ENT HEENT: Reports systems reviewed and no addt'l complaints, except as documented Cardiovascular Cardiovascular: Reports systems reviewed and no addt'l complaints, except as documented Respiratory/Chest Respiratory/Chest: Reports systems reviewed and no addt'l complaints, except as documented Gastrointestinal Gastrointestinal: Reports systems reviewed and no addt'l complaints, except as documented Genitourinary Genitourinary: Reports systems reviewed and no addt'l complaints, except as documented Musculoskeletal Musculoskeletal: Reports systems reviewed and no addt'l complaints, except as documented Integumentary Integumentary: Reports systems reviewed and no addt'l complaints, except as documented Neurologic Neurologic: Reports systems reviewed and no addt'l complaints, except as documented Psychiatric Psychiatric: Reports systems reviewed and no addt'l complaints, except as documented Physical Exam Narrative He is alert and oriented x 3. He is in no acute distress. Examination of the bilateral buttock regions reveals significant scarring and distorted tissue due to chronic scarring. There are several open wounds present. I do not appreciate any obvious undrained abscesses or areas of severe tenderness. The wounds that are open appear to be generally clean and well dressed. No purulent drainage on any of his dressings. The drainage that is present seems to be more old blood type fluid Lab / Micro Data 02/01/25 05:25 02/01/25 05:25 Labs: Laboratory Results - last 24 hr 01/31/25 07:30: Magnesium 1.8 02/01/25 05:25: WBC 7.5, RBC 4.36 L, Hgb 9.8 L, Hct 31.9 L, MCV 73.2 L, MCH 22.5 L, MCHC 30.7 L, RDW Std Deviation 44.2 H, RDW Coeff of Alisa 16.8 H, Plt Count 176, MPV 11.6, Immature Gran % (Auto) 1.300 H, Neut % (Auto) 73.8 H, Lymph % (Auto) 13.0 L, 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
--- NOTE | 2025-02-01 10:45 | PN_ITS ---
Subjective Subjective Patient seen and examined. He said he felt weak and unwell today. He remains on room air. Review of systems is otherwise negative. Objective Data Objective Data Vital Signs: Vital Signs Temp Pulse Resp BP Pulse Ox O2 Del Method 97.8 F 80 18 120/69 99 Room Air 02/01/25 09:00 02/01/25 09:00 02/01/25 09:00 02/01/25 09:00 02/01/25 09:00 02/01/25 09:51 Oxygen Delivery Method Room Air Weight: 303 lb 5.697 oz Body Mass Index (BMI) 36.9 Intake & Output: Intake and Output for Last 24 Hours 01/30/25 01/31/25 02/01/25 23:59 23:59 23:59 Intake Total 1640 / 1640 2740 / 2980 340 / 340 Output Total 300 / 300 800 / 800 Balance 1340 / 1340 1940 / 2180 340 / 340 Lab / Micro Data 02/01/25 05:25 02/01/25 05:25 Labs: Laboratory Results - last 24 hr 01/31/25 07:30: Magnesium 1.8 02/01/25 05:25: WBC 7.5, RBC 4.36 L, Hgb 9.8 L, Hct 31.9 L, MCV 73.2 L, MCH 22.5 L, MCHC 30.7 L, RDW Std Deviation 44.2 H, RDW Coeff of Alisa 16.8 H, Plt Count 176, MPV 11.6, Immature Gran % (Auto) 1.300 H, Neut % (Auto) 73.8 H, Lymph % (Auto) 13.0 L, [place] % (Auto) 5.6, Eos % (Auto) 5.9 H, Baso % (Auto) 0.4, Absolute Neuts (auto) 5.5, Absolute Lymphs (auto) 0.97, Nucleated RBC % 0, Sodium 135, Potassium 3.2 L, Chloride 104, Carbon Dioxide 20.9 L, Anion Gap 10, BUN 15, Creatinine 0.96, Estim Creat Clear Calc 114.68, Est GFR (MDRD) Non-Af 88, BUN/Creatinine Ratio 16.1, Glucose 118 H, Calcium 8.2, Vancomycin Trough 14.5 Micro: Microbiology 01/30/25 16:33 Wound - Buttock Gram Stain - Final 01/30/25 16:33 Wound - Buttock Wound Culture - Preliminary Streptococcus group A Coag Negative Staph Gram positive linda 01/30/25 23:00 Urine, Catheterized Urine Culture - Preliminary 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 01/30/25 17:42 Mucosa - Nasopharyngeal Respiratory Panel (PCR) - Final Physical Exam Const alert, oriented x3 and no apparent distress Constitutional Narrative: frail General Appearance: cooperative and comfortable HEENT normocephalic, head/scalp atraumatic, hearing grossly normal bilaterally, nasal mucous membranes and turbinates normal and moist oral mucous membranes Eyes PERRL, EOMs intact bilaterally and conjunctivae normal Neck full ROM, no lymphadenopathy and supple Chest inspection of chest normal Resp normal respiratory effort, normal air movement, no use of accessory muscles and clear to auscultation bilaterally Cardio regular rate, regular rhythm, S1 normal heart sound, S2 normal heart sound, no murmurs and peripheral pulses 2+ throughout GI normal to inspection, nondistended, normoactive bowel sounds, soft to palpation, non-tender and non-distended Back/Spine normal ROM Extremity Extremity Narrative: Significant venous stasis changes noted in bilateral lower extremities. Skin Skin Narrative: intact dressing over sacral decubitus ulcer. Neuro no focal motor deficits Motor Exam: general weakness Psych mental status grossly normal, thought process normal and cooperative Appearance: appropriate Assessment & Plan Assessment/Plan (1) Cellulitis of buttock: PLAN: Plan #Infected sacral decubitus ulcer with resultant buttock cellulitis * He also has a history of chronic hidradenitis suppurativa. Wound cultures ordered. * He had active drainage from the sacral wound on admission and CT of the abdomen and pelvis showed extensive soft tissue infection of the bilateral buttocks. On IV vancomycin and Zosyn. * Plastic surgery not available so general surgery consulted. Per discussion with general surgery today, no need for any surgical intervention. To have wound care evaluate him tomorrow. * wbc is down to 7.5 today. Wound care on board. * #UVALDO: resolved. #HYpokalemia: K is 3.2. Will replace and trend. #Chronic iron deficiency anemia: Hb today is 9.8, with baseline between 10-11. Not on iron supplements. Follow up with oncology on outpatient basis #HFpEF: not in exacerbation. lasix on hold. #GERD: on PPI #Hypothyroidism: on synthroid #Histoyr o fDVT: not currently anticoagulated due to history of anemia requiring transfusions. #History of CLL: Diagnosed in 2020 initially treated with high-dose steroids and Rituxan. Had relapse and was started on ibrutinib in 2021. Has remained in remission since. Follow-up with oncology on outpatient basis. DVT prophylaxis: SCDs. Charges/Coding Visit Charges Inpatient E&M: 99443 Subs Hosp L2
[2025-02-01 14:00] VITALS: BP 114/81; PULSE 82; RESP 22; TEMP 36.7; O2SAT 100
--- NOTE | 2025-02-01 18:15 | NURSING ---
bilat buttocks/groin/scrotum cleansed/dried. wet to dry drsg applied to wound rt buttock.
[2025-02-01] MEDS: 0.9% Saline Lock 10 ML Syringe IV (18:23)
[2025-02-01] MEDS: 0.9% Normal Saline (250mL Bag) 250 ML 15 ML IV (20:49)
[2025-02-01 21:00] VITALS: BP 141/79; PULSE 79; RESP 20; TEMP 35.9; O2SAT 100
[2025-02-02 03:56] VITALS: BP 152/65; PULSE 84; RESP 18; TEMP 36.4; O2SAT 99
[2025-02-02] MEDS: Piperacil/Tazobactam 3.375 GM in 0.9% Normal Saline (50mL MB+) 50 ML IV ×2 (05:49→13:22)
[2025-02-02] MEDS: Vancomycin HCl 2,000 MG in 0.9% Normal Saline (500mL Bag) 500 ML 250 MG IV (06:32)
[2025-02-02 06:59] LABS: Hematocrit 32.5 % (40-54); Hemoglobin 9.8 g/dL (13.0-16.5); Immature Granulocytes Count 0.220 X10^3/uL (0.0-0.0); Mean Corp Hgb Conc 30.2 g/dL (32-36); Mean Corpuscular Volume 74.9 fL (80-94); Mean Platelet Vol. 11.8 fl (6.2-12.0); NRBC Flagged by Analyzer 0 % (0-5); Platelet Count 182 K/mm3 (150-450); RBC Distribution Width CV 16.9 % (11.6-14.6); RBC Distribution Width SD 45.5 fl (35.1-43.9); Red Blood Count 4.34 M/mm3 (4.6-6.2); White Blood Count 5.8 K/mm3 (4.4-11.0)
[2025-02-02 07:21] LABS: Anion Gap 13 (5-15); BUN 14 mg/dL (4-19); BUN/Creat Ratio 16.4 RATIO (10-20); Calcium,Total 8.7 mg/dL (7.6-11.0); Carbon Dioxide 19.2 mmol/L (21.0-32.0); Chloride 107 mmol/L (98-108); Estimated Creatinine Clearance 134.26 ml/min (50-250); Glucose 113 mg/dL (70-99); Potassium 3.7 mmol/L (3.3-5.1)
[2025-02-02 08:10] VITALS: O2SAT 94
[2025-02-02 09:03] VITALS: BP 136/69; PULSE 81; RESP 14; TEMP 36.4; O2SAT 95
[2025-02-02] MEDS: Lactobacillis Acidophilus 1 CAP PO ×2 (09:04→21:57)
[2025-02-02] MEDS: IBRUTINIB 140 MG CAPSULE 420 MG PO (09:04)
[2025-02-02] MEDS: Calcium (Elemental) 500 MG Tablet PO (09:04)
[2025-02-02] MEDS: Juven (unflavored) Packet 1 PACKET PO ×2 (09:05→17:18)
--- NOTE | 2025-02-02 10:18 | CASEMGMT ---
Addendum entered by Armida Siegel 02/02/25 10:44: Pt has [facility] [employer] and will not need precert to return (they will skill in-house). Armida Siegel DC Planning Asst. Original Note: Discharge Planning Updates sent to . Asked if precert needed if IVs are ordered. Awaiting response. Armida Siegel DC Planning Asst.
--- NOTE | 2025-02-02 10:57 | PCM.PN.HOSP ---
Reason for Visit Chief Complaint: Abnormal labs and fatigue with malaise Subjective Subjective Saw patient at bedside this morning. Patient sitting back fairly comfortably in bedside chair, conversing normally, in no acute distress. Reports feeling winded with minimal ambulation around the room. However, denies significant cough or fevers/chills. Has minimal pain or discomfort with his sacral wound. No other new concerns today. Objective Data Objective Data Vital Signs: Vital Signs Temp Pulse Resp BP Pulse Ox O2 Del Method O2 Flow Rate 97.6 F L 81 14 136/69 H 95 Room Air 98 02/02/25 09:03 02/02/25 09:03 02/02/25 09:03 02/02/25 09:03 02/02/25 09:03 02/02/25 09:03 02/02/25 08:59 Oxygen Flow Rate (L/min) 98 Oxygen Delivery Method Room Air Weight: 137.6 kg Body Mass Index (BMI) 36.9 Intake & Output: Intake and Output for Last 24 Hours 01/31/25 02/01/25 02/02/25 23:59 23:59 23:59 Intake Total 2740 / 2980 1895 / 1895 640 / 640 Output Total 800 / 800 600 / 950 750 / 750 Balance 1940 / 2180 1295 / 945 -110 / -110 Lab / Micro Data 02/02/25 06:14 02/02/25 06:14 Labs: Laboratory Results - last 24 hr 02/02/25 06:14: WBC 5.8, RBC 4.34 L, Hgb 9.8 L, Hct 32.5 L, MCV 74.9 L, MCH 22.6 L, MCHC 30.2 L, RDW Std Deviation 45.5 H, RDW Coeff of Alisa 16.9 H, Plt Count 182, MPV 11.8, Immature Gran % (Auto) 3.800 H, Neut % (Auto) 71.7 H, Lymph % (Auto) 12.5 L, [place] % (Auto) 6.5, Eos % (Auto) 5.0, Baso % (Auto) 0.5, Absolute Neuts (auto) 4.2, Absolute Lymphs (auto) 0.73 L, Nucleated RBC % 0, Sodium 139, Potassium 3.7, Chloride 107, Carbon Dioxide 19.2 L, Anion Gap 13, BUN 14, Creatinine 0.82, Estim Creat Clear Calc 134.26, Est GFR (MDRD) Non-Af 97, BUN/Creatinine Ratio 16.4, Glucose 113 H, Calcium 8.7 Micro: Microbiology 01/30/25 16:33 Wound - Buttock Gram Stain - Final 01/30/25 16:33 Wound - Buttock Wound Culture - Preliminary Streptococcus group A Coag Negative Staph Gram positive linda Alpha hemolytic organism Proteus mirabilis Citrobacter freundii 01/30/25 16:00 Blood Culture (Wb) - Right Forearm Blood Culture - Preliminary No growth in 48 hours. 01/30/25 16:00 Blood Culture (Wb) - Left Hand Blood Culture - Preliminary No growth in 48 hours. 01/30/25 23:00 Urine, Catheterized Urine Culture - Preliminary Escherichia coli GPC Poss Enterococcus sp 01/30/25 17:42 Mucosa - Nasopharyngeal Respiratory Panel (PCR) - Final Physical Exam Const alert, oriented x3 and no apparent distress Constitutional Narrative: Elderly male, class II obesity, mildly fatigued appearing, otherwise sitting back in bed fairly comfortably, conversing normally and in no acute distress. General Appearance: cooperative and comfortable HEENT normocephalic, head/scalp atraumatic, hearing grossly normal bilaterally, nasal mucous membranes and turbinates normal and moist oral mucous membranes Eyes PERRL, EOMs intact bilaterally and conjunctivae normal Neck full ROM Chest inspection of chest normal Resp normal respiratory effort, normal air movement, no use of accessory muscles and clear to auscultation bilaterally Cardio regular rate, regular rhythm, no murmurs and peripheral pulses 2+ throughout GI normal to inspection, nondistended, normoactive bowel sounds, soft to palpation, non-tender and non-distended Back/Spine normal ROM Extremity Extremity Narrative: Significant venous stasis changes noted in bilateral lower extremities. Skin Skin Narrative: Dressing in place over sacral wound. Psych mental status grossly normal Assessment & Plan Assessment/Plan (1) Cellulitis of buttock: PLAN: Plan Patient is a 64-year-old male who presented to [facility] ED on 01/30/2025 with fatigue, malaise and abnormal labs. 1. Infected sacral decubitus ulcer with resultant buttock cellulitis, history of chronic hidradenitis suppurativa ? General surgery, ID and wound care following. Presented with sacral wound with active drainage. CT abdomen pelvis showed extensive soft tissue infection of the bilateral buttocks, though no deep muscle involvement noted. Per surgery, no abscess noted so no surgical needs at this time, okay for local wound care. Wound culture growing strep, coag negative staph, gram-positive rods, group A strep, Proteus and Citrobacter. Urine culture notably growing E. coli and Enterococcus. Per ID, okay to continue vancomycin and Zosyn while inpatient and will tentatively plan for 7 to 10 days of p.o. Bactrim and Augmentin on discharge. If patient remains stable tomorrow, will be medically ready for discharge. 2. UVALDO, resolved ? Creatinine 1.41 on admit, baseline around 1.0. Improved back to baseline with IV fluids. 3. Mild hypokalemia ? Potassium 3.2 while inpatient. Repleting as needed. 4. Chronic iron deficiency anemia ? Follows with oncology as below. Iron studies on admit with low iron and iron saturation levels but normal ferritin level and hemoglobin stable at baseline 10-11. Not on p.o. iron supplement and will not initiate that at this time. Iron infusion not indicated above because of normal ferritin level and because of active infection. Hemoglobin has remained stable at baseline around 10 during hospitalization. 5. CLL ? Follows with oncology, last office visit back in December 2023. Was diagnosed back in 2020 and was initially treated with high-dose steroids and Rituxan with good response. However, had relapse of CLL and was started on ibrutinib in 2021. He has now remained in remission and is on observation. No inpatient needs, continue outpatient follow-up. 6. Chronic debility ? Case management following. Resides in long-term care at [facility] and will plan to return there at discharge. Chronic medical conditions: ? Class II obesity: BMI 36 on admit. Complicates hospital course and care. ? Chronic HFpEF, hypertension, hyperlipidemia: Continue home Lasix and statin. ? GERD: Continue home PPI. ? Hypothyroidism: Continue home Synthroid. ? History of DVT: Not on anticoagulation due to prior issues with severe anemia. ? Bilateral lower extremity venous stasis DVT prophylaxis: Lovenox CODE STATUS: Full code, verified Expected disposition: Back to [facility], 1 to 2 days Total clinical time spent by myself addressing the patient's medical issues, reviewing all the data, and collaborating with patient's care team: 35 minutes. Charges/Coding Visit Charges Inpatient E&M: 66354 Subs Hosp L2
--- NOTE | 2025-02-02 11:18 | CON.PCM.ID_ITS ---
Assessment & Plan Assessment/Plan (1) Cellulitis of buttock: PLAN: UA (+), ucx wth ecoli and enterococcus-like. Wound cx with strep, CoNS, GPR, GAS, proteus, and citrobacter. On vanc/zosyn. No deep abscess seen on CT, wound care consulted, gen surg following. Feeling better. Plan on short course po abx at discharge with derm followup. Tentative plan would be 7-10 days po bactrim DS bid and augmentin 875mg bid. Will follow, thank you (2) CLL (chronic lymphocytic leukemia): (3) Hidradenitis: HPI Consult Data Date of Consult: 02/02/25 HPI Narrative Reason for Consultation: wound infection HPI Narrative: MARYCRUZ VARGAS, is a 64 M with h/o CLL and hidradenitis, presented 01/30 with about a week fatigue, dyspnea, and worsened sacral wound redness/drainage/pain. Some cough, no sputum. Some mild chills at [facility]. Admitted here, seen by gen surg, on vanc/zosyn, feeling better. Full ROS performed and neg except as noted above. 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 Anemia, macrocytic Bilateral lower extremity edema Chronic lymphocytic leukemia Edema, lower extremity Home Medications ?Medication ?Instructions ?Recorded ?Last Taken ?Type folic acid 1 mg tablet 1 mg PO DAILY #100 tabs 10/0 01/19 Unknown Rx Lactobacillus rhamnosus GG 10 1 cap PO BID 06/21/22 Un known History billion cell capsule (Culturelle) acetaminophen 325 mg tablet 325 mg PO Q6H PRN pain Unknown History (Tylenol) calcium carbonate 500 mg PO DAILY 06/21/22 Unk nown History ergocalciferol (vitamin D2) 1,250 1,250 mcg PO QWEEK 1 08/22/21 Unknown History mcg (50,000 unit) capsule ondansetron HCl 4 mg tablet 4 mg PO Q4H PRN nausea and vomiting 06/21/22 Unknown History ibrutinib 420 mg tablet 420 mg PO DAILY 11/30/22 Unk nown History atorvastatin 10 mg tablet 10 mg PO QHS 06/19/23 Unknow n History ketoconazole 2 % shampoo 1 applic topical DAILY PRN d ry skin 06/19/23 Unknown History loperamide 2 mg capsule 2 mg PO Q6H PRN loose stool 06/19/23 Unknown History multivitamin 1 tab PO DAILY 06/19/23 Unkn own History secukinumab 150 mg/mL subcutaneous 300 mg subcut Q4W 0 12/11/23 Unknown History syringe (Cosentyx) furosemide 80 mg tablet (Lasix) 80 mg PO DAILY 5 Unknown History ibrutinib 140 mg capsule 420 mg PO DAILY 08/03/24 Unk nown History (Imbruvica) levothyroxine 25 mcg capsule 25 mcg PO DAILY 08/03/24 Unknown History loratadine 10 mg tablet 10 mg PO DAILY 08/03/24 Unkn own History potassium chloride 20 mEq oral 40 meq PO DAILY 5 Unknown History packet clobetasol 0.05 % shampoo (Clobex) 1 applic topical .C OMPLEX 01/30/25 Unknown History cyclobenzaprine 10 mg tablet 10 mg PO TID 01/30/25 Unk nown History fluocinolone 0.01 % scalp oil and 1 applic topical QHS 01/30/25 Unknown History shower cap guaifenesin 600 mg tablet, 600 mg PO BID PRN congestio n 01/30/25 Unknown History extended release 12 hr (Mucinex) omeprazole 20 mg capsule,delayed 20 mg PO DAILY Unknown History release Allergy/AdvReac Type Severity Reaction Status Date / Time No Known Allergies Allergy Verified 08/04/24 00:24 Family History Father Diabetes Mother Hypertension Surgical History H/O foot surgery History of tonsillectomy Social History housing: residential Smoking Status: Former smoker second hand exposure: No alcohol intake: current alcohol intake frequency: holidays/special occasions only details: occasionally diet: low salt estelle/anglican: Christianity seatbelt use: always do you feel safe at home: Yes Physical Exam Const alert, oriented x3 and no apparent distress General Appearance: cooperative HEENT normocephalic and head/scalp atraumatic Eyes PERRL and EOMs intact bilaterally Neck supple and No nodes Resp normal air movement and clear to auscultation bilaterally Cardio regular rate and regular rhythm GI soft to palpation, non-tender and non-distended Extremity General Extremity: edema Skin Skin Narrative: scarring and sinus tracts over sacrum, minimal drainage, tenderness Neuro CN's II-XII intact bilaterally Lab / Micro Data Attestation: I reviewed the patient's lab results. 02/02/25 06:14 02/02/25 06:14 Labs: Laboratory Results - last 24 hr 02/02/25 06:14: WBC 5.8, RBC 4.34 L, Hgb 9.8 L, Hct 32.5 L, MCV 74.9 L, MCH 22.6 L, MCHC 30.2 L, RDW Std Deviation 45.5 H, RDW Coeff of Alisa 16.9 H, Plt Count 182, MPV 11.8, Immature Gran % (Auto) 3.800 H, Neut % (Auto) 71.7 H, Lymph % (Auto) 12.5 L, [place] % (Auto) 6.5, Eos % (Auto) 5.0, Baso % (Auto) 0.5, Absolute Neuts (auto) 4.2, Absolute Lymphs (auto) 0.73 L, Nucleated RBC % 0, Sodium 139, Potassium 3.7, Chloride 107, Carbon Dioxide 19.2 L, Anion Gap 13, BUN 14, Creatinine 0.82, Estim Creat Clear Calc 134.26, Est GFR (MDRD) Non-Af 97, BUN/Creatinine Ratio 16.4, Glucose 113 H, Calcium 8.7 Micro: Microbiology 01/30/25 16:33 Wound - Buttock Gram Stain - Final 01/30/25 16:33 Wound - Buttock Wound Culture - Preliminary Streptococcus group A Coag Negative Staph Gram positive linda Alpha hemolytic organism Proteus mirabilis Citrobacter freundii 01/30/25 16:00 Blood Culture (Wb) - Right Forearm Blood Culture - Preliminary No growth in 48 hours. 01/30/25 16:00 Blood Culture (Wb) - Left Hand Blood Culture - Preliminary No growth in 48 hours. 01/30/25 23:00 Urine, Catheterized Urine Culture - Preliminary Escherichia coli GPC Poss Enterococcus sp
[2025-02-02] MEDS: 0.9% Saline Lock 10 ML Syringe IV (13:23)
[2025-02-02 14:46] VITALS: BP 140/69; PULSE 82; RESP 14; TEMP 36.6; O2SAT 99
[2025-02-02] MEDS: Smz/Tmp Ds Tablet 1 TABLET PO (21:57)
[2025-02-02 21:59] VITALS: BP 141/74; PULSE 81; RESP 18; TEMP 36.6; O2SAT 96
[2025-02-03 06:51] LABS: Hematocrit 33.0 % (40-54); Hemoglobin 10.1 g/dL (13.0-16.5); Immature Granulocytes Count 0.280 X10^3/uL (0.0-0.0); Mean Corp Hgb Conc 30.6 g/dL (32-36); Mean Corpuscular Volume 74.3 fL (80-94); Mean Platelet Vol. 11.9 fl (6.2-12.0); NRBC Flagged by Analyzer 0.3 % (0-5); Platelet Count 197 K/mm3 (150-450); RBC Distribution Width CV 17.2 % (11.6-14.6); RBC Distribution Width SD 45.6 fl (35.1-43.9); Red Blood Count 4.44 M/mm3 (4.6-6.2); White Blood Count 6.8 K/mm3 (4.4-11.0)
[2025-02-03 07:13] LABS: Anion Gap 12 (5-15); BUN 18 mg/dL (4-19); BUN/Creat Ratio 16.3 RATIO (10-20); Calcium,Total 9.0 mg/dL (7.6-11.0); Carbon Dioxide 20.5 mmol/L (21.0-32.0); Chloride 106 mmol/L (98-108); Estimated Creatinine Clearance 98.30 ml/min (50-250); Glucose 119 mg/dL (70-99); Potassium 4.0 mmol/L (3.3-5.1)
--- NOTE | 2025-02-03 09:28 | WOUNDNOTE ---
wound photo: bilateral buttocks
[2025-02-03 09:38] VITALS: BP 135/69; PULSE 84; RESP 16; TEMP 36.4; O2SAT 99
[2025-02-03] MEDS: Juven (unflavored) Packet 1 PACKET PO (09:40)
[2025-02-03] MEDS: Smz/Tmp Ds Tablet 1 TABLET PO (09:41)
[2025-02-03] MEDS: Calcium (Elemental) 500 MG Tablet PO (09:41)
[2025-02-03] MEDS: IBRUTINIB 140 MG CAPSULE 420 MG PO (09:41)
[2025-02-03] MEDS: Lactobacillis Acidophilus 1 CAP PO (09:41)
--- NOTE | 2025-02-03 10:35 | PCM.PN.SRG ---
Subjective Subjective Patient evaluated sitting comfortably in the chair. He denies any pain or discomfort in his gluteal regions. Objective Data Objective Data Vital Signs: Vital Signs Temp Pulse Resp BP Pulse Ox O2 Del Method O2 Flow Rate 97.5 F L 84 16 135/69 H 99 Room Air 98 02/03/25 09:38 02/03/25 09:38 02/03/25 09:38 02/03/25 09:38 02/03/25 09:38 02/03/25 09:38 02/02/25 08:59 Oxygen Flow Rate (L/min) 98 Oxygen Delivery Method Room Air Weight: 303 lb 5.697 oz Body Mass Index (BMI) 36.9 Intake & Output: Intake and Output for Last 24 Hours 02/01/25 02/02/25 02/03/25 23:59 23:59 23:59 Intake Total 1895 / 1895 690 / 690 500 / 500 Output Total 600 / 950 1200 / 1600 900 / 900 Balance 1295 / 945 -510 / -910 -400 / -400 Lab / Micro Data 02/03/25 05:47 02/03/25 05:47 Labs: Laboratory Results - last 24 hr 02/03/25 05:47: WBC 6.8, RBC 4.44 L, Hgb 10.1 L, Hct 33.0 L, MCV 74.3 L, MCH 22.7 L, MCHC 30.6 L, RDW Std Deviation 45.6 H, RDW Coeff of Alisa 17.2 H, Plt Count 197, MPV 11.9, Immature Gran % (Auto) 4.100 H, Neut % (Auto) 68.6, Lymph % (Auto) 16.0 L, [place] % (Auto) 7.0, Eos % (Auto) 3.7, Baso % (Auto) 0.6, Absolute Neuts (auto) 4.7, Absolute Lymphs (auto) 1.09, Nucleated RBC % 0.3, Sodium 138, Potassium 4.0, Chloride 106, Carbon Dioxide 20.5 L, Anion Gap 12, BUN 18, Creatinine 1.12, Estim Creat Clear Calc 98.30, Est GFR (MDRD) Non-Af 72, BUN/Creatinine Ratio 16.3, Glucose 119 H, Calcium 9.0 Micro: Microbiology 01/30/25 23:00 Urine, Catheterized Urine Culture - Final Escherichia coli Enterococcus avium 01/30/25 16:33 Wound - Buttock Gram Stain - Final 01/30/25 16:33 Wound - Buttock Wound Culture - Final Streptococcus group A Coag Negative Staph Gram positive linda Strep anginosus Proteus mirabilis Citrobacter freundii 01/30/25 16:00 Blood Culture (Wb) - Right Forearm Blood Culture - Preliminary No growth in 48 hours. 01/30/25 16:00 Blood Culture (Wb) - Left Hand Blood Culture - Preliminary No growth in 48 hours. 01/30/25 17:42 Mucosa - Nasopharyngeal Respiratory Panel (PCR) - Final Physical Exam Skin Skin Narrative: Gluteal region- right gluteal area with minimal amount of drainage mostly bleeding Assessment & Plan Assessment/Plan (1) Cellulitis of buttock: PLAN: I am following this patient in conjunction with Dr. Mcallister. He will independently evaluate this patient Patient seems improved We have no surgical intervention planned for this patient He is ready for discharge at this time No follow-up with our office is needed Charges/Coding Visit Charges Inpatient E&M: 59958 Subs Hosp L2
--- NOTE | 2025-02-03 10:42 | PCM.PN.ID ---
Physical Exam Narrative Feeling ok, still some cough, no fever Const alert and no apparent distress Resp Auscultation: wheezes Cardio regular rate and regular rhythm GI soft to palpation, non-tender and non-distended Skin Skin Narrative: reviewed wound photo of buttocks ID ID: Route of nutrition/ use of supplements: [] Nutritional Intake: [] IV Site: [] Nickerson Catheter: [] Assessment & Plan Assessment/Plan (1) Cellulitis of buttock: PLAN: UA (+), ucx wth ecoli and enterococcus-like. Wound cx with strep, CoNS, GPR, GAS, proteus, and citrobacter. On vanc/zosyn. No deep abscess seen on CT, wound care consulted, gen surg following. Feeling better. Plan on short course po abx at discharge with derm followup. Plan for discharge is 7-10 days po bactrim DS bid and augmentin 875mg bid. Will follow (2) CLL (chronic lymphocytic leukemia): (3) Hidradenitis:
--- NOTE | 2025-02-03 10:45 | DS.PCM_ITS ---
Providers Date of Admission: 01/30/25 Date of Discharge: 02/03/25 Primary Care Physician: Dr. 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 Routine Comment: Reason for Consult:: sacral wound 01/31/25 14:50 Consult: General Surgery Routine Consulting Provider: Vijay Mcallister Reason for Consult: infected sacral decubitus ulcer EMERGENT Consult: No MD Notified: Yes Date Notified: 01/31/25 Time Notified: 14:50 Method of Notification: Text 02/02/25 08:11 Consult: Infectious Disease Routine Consulting Provider: Oracio Campbell Reason for Consult: sacral wound w/ polymicrobial wound culture results EMERGENT Consult: No MD Notified: Yes Date Notified: 02/02/25 Time Notified: 08:19 Method of Notification: Text Reason For Visit: SEPSIS DUE TO SACRAL WOUND +/- PNEUMONIA Diagnosis Discharge Diagnosis (1) Cellulitis of buttock: Status: Acute Code(s): L03.317 - Cellulitis of buttock (2) CLL (chronic lymphocytic leukemia): Status: Chronic Code(s): C91.10 - Chronic lymphocytic leukemia of B-cell type not having achieved remission (3) Hidradenitis: Status: Chronic Code(s): L73.2 - Hidradenitis suppurativa Plan Patient is a 64-year-old male who presented to [facility] ED on 01/30/2025 with fatigue, malaise and abnormal labs. 1. Infected sacral decubitus ulcer with resultant buttock cellulitis, history of chronic hidradenitis suppurativa ? General surgery, ID and wound care following. Presented with sacral wound with active drainage. CT abdomen pelvis showed extensive soft tissue infection of the bilateral buttocks, though no deep muscle involvement noted. Per surgery, no abscess noted so no surgical needs at this time, okay for local wound care. Wound culture growing strep, coag negative staph, gram-positive rods, group A strep, Proteus and Citrobacter. Urine culture notably growing E. coli and Enterococcus. Per ID, okay to continue vancomycin and Zosyn while inpatient and will tentatively plan for 7 to 10 days of p.o. Bactrim and Augmentin on discharge. ? 02/03/2025; patient was deemed stable for discharge 2. UVALDO, resolved ? Creatinine 1.41 on admit, baseline around 1.0. Improved back to baseline with IV fluids. 3. Mild hypokalemia ? Potassium 3.2 while inpatient. Repleting as needed. ? Potassium discharge was 4.0 with patient being discharged on Bactrim for 10 days decision was made to discontinue potassium. Requisition was sent to the [facility] to have repeat potassium to be performed within a week 4. Chronic iron deficiency anemia ? Follows with oncology as below. Iron studies on admit with low iron and iron saturation levels but normal ferritin level and hemoglobin stable at baseline 10-11. Not on p.o. iron supplement and will not initiate that at this time. Iron infusion not indicated above because of normal ferritin level and because of active infection. Hemoglobin has remained stable at baseline around 10 during hospitalization. 5. CLL ? Follows with oncology, last office visit back in December 2023. Was diagnosed back in 2020 and was initially treated with high-dose steroids and Rituxan with good response. However, had relapse of CLL and was started on ibrutinib in 2021. He has now remained in remission and is on observation. No inpatient needs, continue outpatient follow-up. 6. Chronic debility ? Case management following. Resides in long-term care at [facility] and will plan to return there at discharge. 7. Class II obesity with BMI of 37 ? Complicating care 8. Chronic congestive heart failure with preserved ejection fraction ? Patient remains euvolemic 9. Hypertension ? Blood pressure controlled, home medications continued with dose adjustment as needed 10. Hypothyroidism ? Patient is on levothyroxine home dose continued 11. Dyslipidemia ?Patient is on statin therapy, continued at home dose 12. History of bilateral lower extremity venous stasis 13. History of DVT involving the lower extremities patient completed treatment per guidelines Medications at Discharge Home Medications folic acid 1 mg tablet 1 mg PO DAILY #100 tabs 04/07/21 Lactobacillus rhamnosus GG 10 billion cell capsule (Culturelle) 1 cap PO BID 06/21/22 acetaminophen 325 mg tablet (Tylenol) 325 mg PO Q6H PRN pain 06/21/22 calcium carbonate 500 mg PO DAILY 06/21/22 ergocalciferol (vitamin D2) 1,250 mcg (50,000 unit) capsule 1,250 mcg PO QWEEK 06/21/22 ondansetron HCl 4 mg tablet 4 mg PO Q4H PRN nausea and vomiting 06/21/22 ibrutinib 420 mg tablet 420 mg PO DAILY 11/30/22 atorvastatin 10 mg tablet 10 mg PO QHS 06/19/23 ketoconazole 2 % shampoo 1 applic topical DAILY PRN dry skin 06/19/23 loperamide 2 mg capsule 2 mg PO Q6H PRN loose stool 06/19/23 multivitamin 1 tab PO DAILY 06/19/23 secukinumab 150 mg/mL subcutaneous syringe (Cosentyx) 300 mg subcut Q4W 12/11/23 furosemide 80 mg tablet (Lasix) 80 mg PO DAILY 08/03/24 ibrutinib 140 mg capsule (Imbruvica) 420 mg PO DAILY 08/03/24 levothyroxine 25 mcg capsule 25 mcg PO DAILY 08/03/24 loratadine 10 mg tablet 10 mg PO DAILY 08/03/24 clobetasol 0.05 % shampoo (Clobex) 1 applic topical .COMPLEX 01/30/25 cyclobenzaprine 10 mg tablet 10 mg PO TID 01/30/25 fluocinolone 0.01 % scalp oil and shower cap 1 applic topical QHS 01/30/25 guaifenesin 600 mg tablet, extended release 12 hr (Mucinex) 600 mg PO BID PRN congestion 01/30/25 omeprazole 20 mg capsule,delayed release 20 mg PO DAILY 01/30/25 amoxicillin 875 mg-potassium clavulanate 125 mg tablet 1 tab PO BID 10 days #20 tabs 02/03/25 arginine 7 gram-glutam 7 gram-CaHMB 1.5 [id number] oral pwd pkt (Josue (with collagen)) 1 packet PO BIDCM #0 ea 02/03/25 sulfamethoxazole 800 mg-trimethoprim 160 mg tablet 1 tab PO BID 10 days #20 tabs 02/03/25 Hospital Course Summary of Care Provided Minutes Spent on Discharge: 35 Physical Exam Narrative GENERAL: cooperative HEENT: Atraumatic; normocephalic EYES; Anicteric, Normal Conjunctiva NECK; supple, normal thyroid, RESPIRATORY: Diminished to auscultation CARDIOVASCULAR: Regular S1 S2, GI: soft, normoactive bowel sounds, : No Renal angle tenderness; EXTREMITIES: Bilateral stasis dermatitis MUSCULOSKELETAL: no muscle wasting NEURO: Awake; no lateralizing signs. SKIN: No Rash PSYCH; Flat affect Weight / BMI Weight Weight: 137.6 kg Body Mass Index (BMI) 36.9 ABG / Lab / Microbiology Data 02/03/25 05:47 02/03/25 05:47 Laboratory: Laboratory Results - last 24 hr 02/03/25 05:47: WBC 6.8, RBC 4.44 L, Hgb 10.1 L, Hct 33.0 L, MCV 74.3 L, MCH 22.7 L, MCHC 30.6 L, RDW Std Deviation 45.6 H, RDW Coeff of Alisa 17.2 H, Plt Count 197, MPV 11.9, Immature Gran % (Auto) 4.100 H, Neut % (Auto) 68.6, Lymph % (Auto) 16.0 L, [place] % (Auto) 7.0, Eos % (Auto) 3.7, Baso % (Auto) 0.6, Absolute Neuts (auto) 4.7, Absolute Lymphs (auto) 1.09, Nucleated RBC % 0.3, Sodium 138, Potassium 4.0, Chloride 106, Carbon Dioxide 20.5 L, Anion Gap 12, BUN 18, Creatinine 1.12, Estim Creat Clear Calc 98.30, Est GFR (MDRD) Non-Af 72, BUN/Creatinine Ratio 16.3, Glucose 119 H, Calcium 9.0 Microbiology: Microbiology 01/30/25 23:00 Urine, Catheterized Urine Culture - Final Escherichia coli Enterococcus avium 01/30/25 16:33 Wound - Buttock Gram Stain - Final 01/30/25 16:33 Wound - Buttock Wound Culture - Final Streptococcus group A Coag Negative Staph Gram positive linda Strep anginosus Proteus mirabilis Citrobacter freundii 01/30/25 16:00 Blood Culture (Wb) - Right Forearm Blood Culture - Preliminary No growth in 48 hours. 01/30/25 16:00 Blood Culture (Wb) - Left Hand Blood Culture - Preliminary No growth in 48 hours. 01/30/25 17:42 Mucosa - Nasopharyngeal Respiratory Panel (PCR) - Final D/C Instructions Discharge Activity: Return to Normal Activity Call your doctor if you observe: Fever of 101 or Higher, Shortness of breath, Fainting spells and Chest pain DC O2, CPAP, BIPAP Needs Home O2 Discharge instructions: No Meaningful Use Info Meaningful Use Meaningful Use Diagnoses (Choose all that apply): None applicable Discharge Plan Admission Admit Date/Time: 01/30/25 18:38 Attending Provider: Jose Norman Primary Care Provider: Mone Castillo Consulting Providers: Rosalio Juarez; Vijay Mcallister; Arti Gardner; Oracio Campbell Discharge Orders/Prescriptions Prescriptions: New sulfamethoxazole-trimethoprim 800-160 mg Tablet 1 tab PO BID 10 Days Qty: 20 0RF amoxicillin-pot clavulanate 875-125 mg Tablet 1 tab PO BID 10 Days Qty: 20 0RF Josue (with collagen) 7-7-1.5 gram Powder In Packet 1 packet PO BIDCM Qty: 0 0RF Continued calcium carbonate 500 mg calcium (1,250 mg) tablet 500 mg PO DAILY Culturelle 10 billion cell capsule 1 cap PO BID ergocalciferol (vitamin D2) 1,250 mcg (50,000 unit) capsule 1,250 mcg PO QWEEK ondansetron HCl 4 mg tablet 4 mg PO Q4H PRN (Reason: nausea and vomiting) acetaminophen [Tylenol] 325 mg tablet 325 mg PO Q6H PRN (Reason: pain) ibrutinib 420 mg tablet 420 mg PO DAILY atorvastatin 10 mg tablet 10 mg PO QHS ketoconazole 2 % shampoo 1 applic topical DAILY PRN (Reason: dry skin) loperamide 2 mg capsule 2 mg PO Q6H PRN (Reason: loose stool) multivitamin Tablet 1 tab PO DAILY Cosentyx 150 mg/mL syringe 300 mg subcut Q4W Rx Instructions: 2 pens every 4 weeks on sunday folic acid 1 mg Tablet 1 mg PO DAILY Qty: 100 4RF clobetasol [Clobex] 0.05 % shampoo 1 applic topical .COMPLEX Rx Instructions: 1 applic topically; mon, th, sat cyclobenzaprine 10 mg tablet 10 mg PO TID fluocinolone and shower cap 0.01 % oil 1 applic TOPICAL QHS Patient Comments: [NO ORIGINAL SIG] Rx Instructions: apply every Tues, Fri and Sun guaifenesin [Mucinex] 600 mg tablet extended release 12hr 600 mg PO BID PRN (Reason: congestion) omeprazole 20 mg capsule,delayed release(DR/EC) 20 mg PO DAILY loratadine 10 mg tablet 10 mg PO DAILY Imbruvica 140 mg capsule 420 mg PO DAILY furosemide [Lasix] 80 mg tablet 80 mg PO DAILY levothyroxine 25 mcg capsule 25 mcg PO DAILY Discontinued potassium chloride 20 mEq packet 40 meq PO DAILY Referrals / Follow Up: Mone Castillo MD [Primary Care Provider] - Marlon Michaud MD [Non-Staff] - Within 1 Week Disposition Disposition (needs filled in before D/C Order can be placed): Half-Way Facility Charges/Coding Visit Charges Inpatient E&M: 27586 Disch Hosp >30min
[2025-02-03 10:50] VITALS: BP 129/72; PULSE 85; RESP 14; TEMP 36.4; O2SAT 97
--- NOTE | 2025-02-03 10:55 | PCM.TXEXTCAR ---
Diet Diet Order/Speech Therapy: INPATIENT Hospital Diet / Speech Therapy Order(s) 02/01/25 08:07 Diet: Cardiac - Heart Healthy Type of Dietary Supplement:: Ensure Plus High Protein Diet Comments: 8 oz vanilla EPHP tid w/ meals Routine Orders/Code Status Code Status: Full Code DC O2, CPAP, BIPAP needs Home O2 Discharge instructions: No Wound(s) buttock: Wound Type: Pressure Injury Left buttock: Wound Type: Pressure Injury Rt Buttock: Wound Type: Pressure Injury Rt outer buttock: Wound Type: Pressure Injury bilateral buttocks: Wound Type: scattered open areas (hidradenitis) Dressing Change: dry dressings Problem/Diagnosis (1) Cellulitis of buttock: Status: Acute Code(s): L03.317 - Cellulitis of buttock (2) CLL (chronic lymphocytic leukemia): Status: Chronic Code(s): C91.10 - Chronic lymphocytic leukemia of B-cell type not having achieved remission (3) Hidradenitis: Status: Chronic Code(s): L73.2 - Hidradenitis suppurativa Plan Patient is a 64-year-old male who presented to [facility] ED on 01/30/2025 with fatigue, malaise and abnormal labs. 1. Infected sacral decubitus ulcer with resultant buttock cellulitis, history of chronic hidradenitis suppurativa ? General surgery, ID and wound care following. Presented with sacral wound with active drainage. CT abdomen pelvis showed extensive soft tissue infection of the bilateral buttocks, though no deep muscle involvement noted. Per surgery, no abscess noted so no surgical needs at this time, okay for local wound care. Wound culture growing strep, coag negative staph, gram-positive rods, group A strep, Proteus and Citrobacter. Urine culture notably growing E. coli and Enterococcus. Per ID, okay to continue vancomycin and Zosyn while inpatient and will tentatively plan for 7 to 10 days of p.o. Bactrim and Augmentin on discharge. ? 02/03/2025; patient was deemed stable for discharge 2. UVALDO, resolved ? Creatinine 1.41 on admit, baseline around 1.0. Improved back to baseline with IV fluids. 3. Mild hypokalemia ? Potassium 3.2 while inpatient. Repleting as needed. ? Potassium discharge was 4.0 with patient being discharged on Bactrim for 10 days decision was made to discontinue potassium. Requisition was sent to the F to have repeat potassium to be performed within a week 4. Chronic iron deficiency anemia ? Follows with oncology as below. Iron studies on admit with low iron and iron saturation levels but normal ferritin level and hemoglobin stable at baseline 10-11. Not on p.o. iron supplement and will not initiate that at this time. Iron infusion not indicated above because of normal ferritin level and because of active infection. Hemoglobin has remained stable at baseline around 10 during hospitalization. 5. CLL ? Follows with oncology, last office visit back in December 2023. Was diagnosed back in 2020 and was initially treated with high-dose steroids and Rituxan with good response. However, had relapse of CLL and was started on ibrutinib in 2021. He has now remained in remission and is on observation. No inpatient needs, continue outpatient follow-up. 6. Chronic debility ? Case management following. Resides in long-term care at [facility] and will plan to return there at discharge. 7. Class II obesity with BMI of 37 ? Complicating care 8. Chronic congestive heart failure with preserved ejection fraction ? Patient remains euvolemic 9. Hypertension ? Blood pressure controlled, home medications continued with dose adjustment as needed 10. Hypothyroidism ? Patient is on levothyroxine home dose continued 11. Dyslipidemia ?Patient is on statin therapy, continued at home dose 12. History of bilateral lower extremity venous stasis 13. History of DVT involving the lower extremities patient completed treatment per guidelines Allergies/Procedures Done in Hospital Allergies No Known Allergies Allergy (Verified 08/04/24 00:24) Type of Care/Length of Stay Estimated LOS: Convalescent Care Less Than 30 days Type of Care Needed: Skilled Rehab Potential: Good Prognosis: Good Additional Orders/Day of Discharge Day of Discharge: 02/03/25 Dietary and Speech Recommendations Dietitian Recommendations/Changes: Will continue Cardiac diet as ordered Will order vanilla EPHP tid w/ meals for increased nutrition if consumed Will order Josue bid w/ medpass to help w/ wound healing if consumed. Discharge Plan Admission Admit Date/Time: 01/30/25 18:38 Attending Provider: Jose Norman Primary Care Provider: Mone Castillo Consulting Providers: Rosalio Juarez; Vijay Mcallister; Arti Gardner; Oracio Campbell Discharge Orders/Prescriptions Prescriptions: New sulfamethoxazole-trimethoprim 800-160 mg Tablet 1 tab PO BID 10 Days Qty: 20 0RF amoxicillin-pot clavulanate 875-125 mg Tablet 1 tab PO BID 10 Days Qty: 20 0RF Josue (with collagen) 7-7-1.5 gram Powder In Packet 1 packet PO BIDCM Qty: 0 0RF Continued calcium carbonate 500 mg calcium (1,250 mg) tablet 500 mg PO DAILY Culturelle 10 billion cell capsule 1 cap PO BID ergocalciferol (vitamin D2) 1,250 mcg (50,000 unit) capsule 1,250 mcg PO QWEEK ondansetron HCl 4 mg tablet 4 mg PO Q4H PRN (Reason: nausea and vomiting) acetaminophen [Tylenol] 325 mg tablet 325 mg PO Q6H PRN (Reason: pain) ibrutinib 420 mg tablet 420 mg PO DAILY atorvastatin 10 mg tablet 10 mg PO QHS ketoconazole 2 % shampoo 1 applic topical DAILY PRN (Reason: dry skin) loperamide 2 mg capsule 2 mg PO Q6H PRN (Reason: loose stool) multivitamin Tablet 1 tab PO DAILY Cosentyx 150 mg/mL syringe 300 mg subcut Q4W Rx Instructions: 2 pens every 4 weeks on sunday folic acid 1 mg Tablet 1 mg PO DAILY Qty: 100 4RF clobetasol [Clobex] 0.05 % shampoo 1 applic topical .COMPLEX Rx Instructions: 1 applic topically; mon, th, sat cyclobenzaprine 10 mg tablet 10 mg PO TID fluocinolone and shower cap 0.01 % oil 1 applic TOPICAL QHS Patient Comments: [NO ORIGINAL SIG] Rx Instructions: apply every , Sun and Sun guaifenesin [Mucinex] 600 mg tablet extended release 12hr 600 mg PO BID PRN (Reason: congestion) omeprazole 20 mg capsule,delayed release(DR/EC) 20 mg PO DAILY loratadine 10 mg tablet 10 mg PO DAILY Imbruvica 140 mg capsule 420 mg PO DAILY furosemide [Lasix] 80 mg tablet 80 mg PO DAILY levothyroxine 25 mcg capsule 25 mcg PO DAILY Discontinued potassium chloride 20 mEq packet 40 meq PO DAILY Referrals / Follow Up: Mone Castillo MD [Primary Care Provider] - Marlon Michaud MD [Non-Staff] - Within 1 Week Disposition Disposition (needs filled in before D/C Order can be placed): [facility]
--- NOTE | 2025-02-03 11:13 | PHA.DC.MR.R ---
Pharmacy IN Med Reconciliation Pharmacy Service has performed discharge medication reconciliation for this patient. The patient's discharge medication list was reviewed for discrepancies and discrepancies were resolved. Medications at Discharge Home Medications folic acid 1 mg tablet 1 mg PO DAILY #100 tabs 04/07/21 Lactobacillus rhamnosus GG 10 billion cell capsule (Culturelle) 1 cap PO BID 06/21/22 acetaminophen 325 mg tablet (Tylenol) 325 mg PO Q6H PRN pain 06/21/22 calcium carbonate 500 mg PO DAILY 06/21/22 ergocalciferol (vitamin D2) 1,250 mcg (50,000 unit) capsule 1,250 mcg PO QWEEK 06/21/22 ondansetron HCl 4 mg tablet 4 mg PO Q4H PRN nausea and vomiting 06/21/22 ibrutinib 420 mg tablet 420 mg PO DAILY 11/30/22 atorvastatin 10 mg tablet 10 mg PO QHS 06/19/23 ketoconazole 2 % shampoo 1 applic topical DAILY PRN dry skin 06/19/23 loperamide 2 mg capsule 2 mg PO Q6H PRN loose stool 06/19/23 multivitamin 1 tab PO DAILY 06/19/23 secukinumab 150 mg/mL subcutaneous syringe (Cosentyx) 300 mg subcut Q4W 12/11/23 furosemide 80 mg tablet (Lasix) 80 mg PO DAILY 08/03/24 ibrutinib 140 mg capsule (Imbruvica) 420 mg PO DAILY 08/03/24 levothyroxine 25 mcg capsule 25 mcg PO DAILY 08/03/24 loratadine 10 mg tablet 10 mg PO DAILY 08/03/24 clobetasol 0.05 % shampoo (Clobex) 1 applic topical .COMPLEX 01/30/25 cyclobenzaprine 10 mg tablet 10 mg PO TID 01/30/25 fluocinolone 0.01 % scalp oil and shower cap 1 applic topical QHS 01/30/25 guaifenesin 600 mg tablet, extended release 12 hr (Mucinex) 600 mg PO BID PRN congestion 01/30/25 omeprazole 20 mg capsule,delayed release 20 mg PO DAILY 01/30/25 amoxicillin 875 mg-potassium clavulanate 125 mg tablet 1 tab PO BID 10 days #20 tabs 02/03/25 arginine 7 gram-glutam 7 gram-CaHMB 1.5 [id number] oral pwd pkt (Josue (with collagen)) 1 packet PO BIDCM #0 ea 02/03/25 sulfamethoxazole 800 mg-trimethoprim 160 mg tablet 1 tab PO BID 10 days #20 tabs 02/03/25
--- NOTE | 2025-02-03 13:05 | CASEMGMT ---
Discharge Planning Discharge orders, signed med list, and transport time sent to [facility]. Physicians will transport pt by cot at 2p. Nursing, SW, and pt updated. Pt states that he will update his EC (Elva). Armida Siegel DC Planning Asst.
--- NOTE | 2025-02-03 13:15 | NURSING ---
Report given to nurse Chandra from [facility] via phone at 13:15.
== END 2025-02-03 14:11 | disposition skilled nursing facility (03) | DRG 603 ==
LOC: ED 18:47 → PCU 18:53
PROVIDERS: Student in an Organized Health Care Education/Training Program; Admitting Provider Hospitalist; Emergency Provider Surgery; PCP Hospitalist; Visit Provider Internal Medicine
DX: L03.317 Cellulitis of buttock (principal); C91.11 Chronic lymphocytic leukemia of B-cell type in remission; I50.32 Chronic diastolic (congestive) heart failure; N17.9 Acute kidney failure, unspecified; I45.2 Bifascicular block; L89.159 Pressure ulcer of sacral region, unspecified stage; L89.319 Pressure ulcer of right buttock, unspecified stage; D63.8 Anemia in other chronic diseases classified elsewhere; B95.2 Enterococcus as the cause of diseases classified elsewhere; I11.0 Hypertensive heart disease with heart failure; L89.329 Pressure ulcer of left buttock, unspecified stage; E03.9 Hypothyroidism, unspecified; E66.812 Obesity, class 2; K21.9 Gastro-esophageal reflux disease without esophagitis; I87.2 Venous insufficiency (chronic) (peripheral); D50.9 Iron deficiency anemia, unspecified; L73.2 Hidradenitis suppurativa; E78.5 Hyperlipidemia, unspecified; E87.6 Hypokalemia; B96.20 Unspecified Escherichia coli [E. coli] as the cause of diseases classified elsewhere; R53.81 Other malaise; Z86.718 Personal history of other venous thrombosis and embolism; Z86.19 Personal history of other infectious and parasitic diseases; Z87.891 Personal history of nicotine dependence; Z68.37 Body mass index [BMI] 37.0-37.9, adult; Z79.899 Other long term (current) drug therapy; Z79.890 Hormone replacement therapy
CPT/HCPCS: 36415; 71046; 74177; 80048; 80053; 80202; 81001; 82728; 83540; 83550; 83605; 83735; 83880; 84484; 85025; 85027; 85610; 85730; 87040; 87070; 87077; 87086; 87088; 87186; 87205; 87633; 93005; 94668; 97116; 97162; 97166; 97530; 97535; 97802; 99252; 99285; 99406; Q9967; A4216; G0463